=== PATIENT | male | born 1950 | race Caucasian/White ===

== ENCOUNTER 2019-06-19 17:57 | IRF | payer MEDICARE, OTHER, SELFPAY ==
--- NOTE | ~2019-06-19 | XR_ITS ---
EXAMINATION: XR abdomen NG/feed tube insert DATE: 06/28/2019 08:41 INDICATION: Nasogastric tube placement. TECHNIQUE: A supine view of the abdomen was obtained. COMPARISON: Abdomen radiographs 06/28/2019 FINDINGS: There is a dilated loop of small bowel in right abdomen. There is gaseous distention of the stomach. The colon is normal in caliber. The nasogastric tube tip is in the stomach. IMPRESSION: 1. Nasogastric tube tip in the stomach. 2. Dilated small bowel and stomach, consistent with adynamic ileus versus small bowel obstruction. Reviewed, dictated and finalized at location A.
--- NOTE | ~2019-06-19 | XR_ITS ---
EXAMINATION: XR humerus RT DATE: 06/20/2019 03:11 INDICATION: Right upper extremity PICC line placement TECHNIQUE: AP and lateral views of the right humerus were obtained. COMPARISON: None. FINDINGS: Peripherally inserted central venous catheter with access site along the medial side of the distal up per arm. The distal tip of the catheter projects medial to the proximal humeral diaphysis in the kang on of the proximal basilic/distal axillary veins. Bone alignment is normal. No fracture. Polyarticula r osteoarthritis, mild to moderate at the right acromioclavicular joint and mild at the right elbow. IMPRESSION: 1. PICC line tip in the proximal right upper arm likely the region of the proximal basilic/distal axi llary veins. Reviewed, dictated and finalized at location A. IMPRESSION: 1. PICC line tip in the proximal right upper arm likely the region of the proxi mal basilic/distal axillary veins.
--- NOTE | ~2019-06-19 | XR_ITS ---
EXAMINATION: XR chest 2V DATE: 06/28/2019 08:41 INDICATION: Fever. Leukocytosis. Vomiting. TECHNIQUE: Frontal and lateral views of the chest were obtained on 3 radiographs. COMPARISON: Chest single view 06/27/2019 FINDINGS: There is mild atelectasis at left lung base. No pleural effusion or pneumothorax. The heart size is normal. There is a prominent left paracardial fat pad. The nasogastric tube tip is beyond th e inferior margin of the radiograph, but at least to the stomach. IMPRESSION: 1. Mild atelectasis at left lung base. Reviewed, dictated and finalized at location A.
--- NOTE | ~2019-06-19 | XR_ITS ---
EXAMINATION: XR abdomen obstructive series DATE: 06/28/2019 05:53 INDICATION: Abdominal distention. Vomiting. TECHNIQUE: Upright and supine views of the abdomen were obtained. COMPARISON: None. FINDINGS: There is gaseous distention of the stomach. There are multiple dilated loops of small bowel . The colon is normal in caliber. No free intraperitoneal gas. IMPRESSION: 1. Dilated small bowel and stomach, consistent with small bowel obstruction versus adynamic ileus. Reviewed, dictated and finalized at location A. IMPRESSION: 1. Dilated small bowel and stomach, consistent with small bowel obstruction marcia blanche adynamic ileus.
--- NOTE | ~2019-06-19 | XR_ITS ---
EXAMINATION: XR chest PICC line DATE: 06/20/2019 02:23 INDICATION: PICC line placement TECHNIQUE: frontal view of the chest was obtained. COMPARISON: None FINDINGS: The lungs are clear with no focal airspace opacities, pulmonary edema, pleural effusion or pneumothor ax. The cardiomediastinal silhouette is normal. Visualized bones and soft tissues are unremarkable. N o PICC line is visible. IMPRESSION: 1. Normal chest radiograph. No evident PICC line. Reviewed, dictated and finalized at location A.
--- NOTE | ~2019-06-19 | XR_ITS ---
EXAMINATION: XR chest 1V portable DATE: 06/27/2019 10:42 INDICATION: Leukocytosis. TECHNIQUE: A single frontal view of the chest was obtained. COMPARISON: Chest single view 06/20/2019 FINDINGS: There is mild scarring at the lung apices. There is mild atelectasis in left lower lung zon e. No pleural effusion or pneumothorax. The heart size is normal. IMPRESSION: 1. Mild atelectasis in left lower lung zone and mild scarring at the lung apices. Reviewed, dictated and finalized at location A. IMPRESSION: 1. Mild atelectasis in left lower lung zone and mild scarring at the lung apice s.
--- NOTE | ~2019-06-19 | CT_ITS ---
EXAMINATION: CT brain wo con DATE: 06/27/2019 10:26 INDICATION: Fall. Head injury. TECHNIQUE: Computed tomography (CT) of the head was performed without intravenous contrast. The mA wa s adjusted according to patient size. Iterative reconstruction technique was employed. Exam dose: 60 5.33 mGy-cm total exam DLP. COMPARISON: None FINDINGS: There is moderate cerebral volume loss. No intracranial mass lesion or hemorrhage or recent cerebrovascular accident is evident. CT is not sensitive for detection of hyperacute ischemic infarc t. There is nonspecific diminished attenuation of the cerebral white matter, likely due to chronic small vessel ischemic changes. No subdural or epidural hematoma is evident. No orbital mass lesion is detected. No fracture or bone destruction of the cranial vault. Included paranasal sinuses and mastoid air cell s are unremarkable. IMPRESSION: No acute intracranial abnormality or skull fracture Reviewed, dictated and finalized at Location A. Reviewed, dictated and finalized at location A.
[2019-06-19 18:20] VITALS: BP 141/98; PULSE 121; RESP 20; TEMP 36.2; O2SAT 95; BMI 44.8
--- NOTE | 2019-06-19 19:33 | PC.NURSE ---
This patient, Hans Gaytan, was admitted to [facility] Room 220-02. Patient/family oriented to hospital policies and general routines including ID bracelet, bed and alarms, visiting hours, pain management, procedures, bathroom and other care routines, personal items, smoking policy, room service/diet, and visiting hours. Valuables list has been completed. Information on how to activate the Rapid Response Team has been discussed. Patient/Family are encouraged to report perceived risks to care and to ask questions if they do not understand what they are told or what they should do.
[2019-06-19 19:55] VITALS: BP 141/98; PULSE 121; RESP 20; TEMP 36.2; O2SAT 95
[2019-06-19 22:00] VITALS: BP 99/67; PULSE 93; RESP 18; TEMP 36.2; O2SAT 90
[2019-06-20] VITALS (8 sets, daily range): BP systolic 117–123; BP diastolic 74–87; PULSE 70–99; RESP 16–20; TEMP 35.7–36.6; O2SAT 91–97; BMI 44.8; BMI 10.0
[2019-06-20 02:47] LABS: Basophils Percent Auto 0.4 % (0.2-1.2); Eosinophils Absolute Auto 0.1 K/mm3 (0-0.3); Eosinophils Percent Auto 1.4 % (0-4.4); Hemoglobin 13.8 g/dL (14.0-18.0); Immature Granulocyte Absolute 0.07 K/mm3 (0.00-0.031); Immature Granulocyte Percent A 0.7 % (0-0.5); Mean Corpuscular HGB Conc 32.9 g/dl (32-36); Mean Corpuscular Hemoglobin 30.1 pg (26-34); Mean Corpuscular Volume 91.5 fl (80-100); Mean Platelet Volume 9.8 fl (7.4-10.4); Monocytes Absolute Auto 1.1 K/mm3 (0.1-0.6); Monocytes Percent Auto 11.9 % (2.6-8.5); Neutrophils Absolute Auto 6.2 K/mm3 (1.3-6.7); Neutrophils Percent Auto 64.6 % (45.5-73.1); Platelet Count Result 216 k/mm3 (150-375); Red Blood Count 4.59 M/mm3 (4.6-6.20); Red Cell Distribution Width 15.2 % (11.5-14.5); White Blood Count 9.5 K/mm3 (4.5-10.0)
[2019-06-20 03:01] LABS: Blood Urea Nitrogen 59 mg/dL (9-20); Calcium 10.2 mg/dL (8.4-10.2); Carbon Dioxide 32 mmol/L (22-30); Chloride 93 mmol/L (98-107); Estimated CRCL calculation 41 ml/min; Estimated Glomerular Filt Rate 35; Glucose 136 mg/dL (75-110); Potassium 4.6 mmol/L (3.4-5.0); Sodium 133 mmol/L (137-145)
[2019-06-20 03:20] LABS: Add Urine Microscopic? YES; Appearance Urine Clear (Clear); Bilirubin Urine Negative (Negative); Color Urine Yellow (Yellow); Glucose Urine UA Negative (Negative); Ketones Urine Negative (Negative); Mucus Urine Rare /lpf; Nitrate Urine Negative (Negative); Protein Urine Negative (Negative); Squamous Epithelial Cell Urine Rare /hpf (Few); Urobilinogen Urine Negative mg/dL (<2.0); WBC Urine 0-3 /hpf
[2019-06-20 04:06] LABS: Blood Urine Negative (Negative); Leukocyte Esterase Ur 1+ LEU/UL (Negative); Specific Grav Ur 1.015 (1.001-1.035)
[2019-06-20 04:07] LABS: RBC Urine 0-2 /hpf (0-2)
[2019-06-20] MEDS: PANTOPRAZOLE 40 MG TABLET PO ×3 (05:46→20:26)
[2019-06-20] MEDS: METOPROLOL TARTRATE 50 MG TAB PO ×3 (05:46→20:25)
[2019-06-20] MEDS: metroNIDAZOLE 250 MG TABLET 500 MG PO ×4 (05:47→20:26)
--- NOTE | 2019-06-20 08:22 | PC.NURSE ---
Per showroom sales assistant nurse: Patient paperwork from other hospital reflected he was a DNR, but when asked upon admission to [facility] he stated he wants to be a full code with everything done.
[2019-06-20] MEDS: BUMETANIDE 1 MG TABLET 2 MG PO ×2 (09:20→18:09)
[2019-06-20] MEDS: APIXABAN 2.5 MG TABLET PO ×2 (09:20→18:08)
[2019-06-20] MEDS: ACETAMINOPHEN 325 MG TABLET 650 MG PO ×3 (09:20→18:08)
[2019-06-20] MEDS: DIGOXIN TAB 125 MCG TABLET PO (09:21)
[2019-06-20] MEDS: DOCUSATE SODIUM 100 MG CAPSULE PO ×2 (09:21→20:26)
[2019-06-20] MEDS: POTASSIUM CHLORIDE 20 MEQ TABLET.ER PO ×3 (09:22→18:09)
--- NOTE | 2019-06-20 10:00 | WPDREHABHP ---
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 The patient is a 69-year-old male with a past medical history of chronic atrial fibrillation, hypoxemic respiratory failure, osteomyelitis, and chronic kidney disease who presented to [facility] Emergency room after falling at his home. While EMS was with the patient he had a cardiac arrest. He developed hypoxemia and oxygen desaturation to in the 70s and was mechanically ventilated at [facility] for approximately 3 weeks. He went really weaned off of a mechanical ventilation and was discharged to a fdc facility on 4 liter nasal cannula during the day and BiPAP at night p.r.n. he had an episode of respiratory insufficiency with the few hours of admission and was transferred back to [facility]. The discharge him back to the fdc facility and they again sent him to the hospital with respiratory insufficiency. He presented to [facility] on May 30, 2019 with hypoxemia and was admitted. He was tested for COVID-19 and returned negative. Echo showed an ejection fraction of 50%. He was diagnosed with acute respiratory failure with hypoxia. The presume the supplemental oxygen during the day and BiPAP at night and [facility] [place] [facility] May 31, 2019 so that his respiratory could be managed in a hospital setting as he was receiving therapy. His hospitalization other has been significant for urinary retention with placement of a Mccarty catheter, respiratory insufficiency, upper abdominal pain, anasarca, electrolyte imbalance, acute on chronic renal failure, osteomyelitis of the right foot, atrial fibrillation, upper extremity DVT and diabetes mellitus. His upper abdominal pain is being treated with scheduled Tylenol, ultrasound showed gallbladder stone and mild wall thickening without acute cholecystitis. Is anasarca has improved on Lasix drip, he has since been converted to p.o. Bumex. His electrolyte imbalance were corrected. He is on 2 liters nasal cannula during the day and BiPAP at night. Nephrology followed for acute on chronic renal failure and is chronic creatinine is 1.7 which has risen to 1.9 here we with a baseline of creatinine 1.5 his osteomyelitis was already being treated with IV Rocephin and p.o. Flagyl and he will complete antibiotic therapy and June 20, 2019. Atrial fibrillation is controlled on metoprolol digoxin and Eliquis 2.5 milligram in ( due to creatinine ) his diabetes was not requiring any medication for the upper extremity DVT he is being continued on Eliquis 2.5 milligram b.i.d. he is awake and alert oriented x4 he has been debilitated by his lengthy hospitalization and is requiring physical and occupational therapy and significant weakness of related to his prolonged illness multiple respiratory for distress and going on mechanical ventilation. The patient has not traveled outside the [place] or had contact with someone who is ill that has traveled outside the [place] in the past 21 days. Patient has not traveled to an area within the [place] that is experiencing noon transmission of the Coronavirus and has not had close personal contact with anyone that has. The patient does not have a fever. The patient does not have any new liver respiratory illness symptoms. He was tested for COVID-19 and the test was negative. Therapy was initiated at the acute care facility and the patient transferred to [facility] June [facility], 2019 FALLS OR SURGERIES: The patient has had no major surgeries in the 100 days prior to admission. They had falls in the past year. They h
[2019-06-20] MEDS: SIMETHICONE 125 MG CHEW TAB PO ×3 (10:40→18:09)
[2019-06-20] MEDS: SALMETEROL XINAFOATE 50 MCG DISKUS 1 PUFF INHALATION (19:55)
[2019-06-20] MEDS: TOLNAFTATE 1% POWDER 45 GM BTL 1 APPLIC TOPICAL (20:27)
[2019-06-20] MEDS: MICONAZOLE NITRATE 2% CREAM 30 GM TUBE 1 APPLIC TOPICAL (20:27)
[2019-06-21] MEDS: metroNIDAZOLE 250 MG TABLET 500 MG PO ×3 (05:51→21:24)
[2019-06-21 06:00] VITALS: BP 115/79; PULSE 72; RESP 20; TEMP 35.6; O2SAT 95
[2019-06-21 08:00] VITALS: PULSE 72; RESP 20; O2SAT 95
[2019-06-21] MEDS: BUMETANIDE 1 MG TABLET 2 MG PO ×2 (08:17→17:15)
[2019-06-21] MEDS: POTASSIUM CHLORIDE 20 MEQ TABLET.ER PO ×3 (08:17→17:15)
[2019-06-21] MEDS: PANTOPRAZOLE 40 MG TABLET PO ×2 (08:18→21:23)
[2019-06-21] MEDS: SIMETHICONE 125 MG CHEW TAB PO ×3 (08:18→17:14)
[2019-06-21] MEDS: APIXABAN 2.5 MG TABLET PO ×2 (08:19→17:15)
[2019-06-21] MEDS: DIGOXIN TAB 125 MCG TABLET PO (08:19)
[2019-06-21] MEDS: METOPROLOL TARTRATE 50 MG TAB PO ×2 (08:19→21:23)
[2019-06-21] MEDS: DOCUSATE SODIUM 100 MG CAPSULE PO ×2 (08:19→21:23)
[2019-06-21] MEDS: ACETAMINOPHEN 325 MG TABLET 650 MG PO ×3 (08:20→17:15)
[2019-06-21] MEDS: MICONAZOLE NITRATE 2% CREAM 30 GM TUBE 1 APPLIC TOPICAL ×2 (08:20→21:28)
[2019-06-21] MEDS: TOLNAFTATE 1% POWDER 45 GM BTL 1 APPLIC TOPICAL ×2 (08:21→21:24)
[2019-06-21] MEDS: SALMETEROL XINAFOATE 50 MCG DISKUS 1 PUFF INHALATION ×2 (08:34→19:49)
--- NOTE | 2019-06-21 10:50 | RPD ---
INDIVIDUALIZED PLAN OF CARE FOR Hans Gaytan Brief Synthesis of Pre-Admission Screen, Post-Admission Evaluation and Therapy Evaluations: The patient presents to rehab with Critical illness myopathy. Comorbidities include cardiac arrest with NSTEMI, acute respiratory failure with hypoxia, congestive heart failure, generalized anasarca, osteomyelitis right foot, chronic kidney disease with acute renal failure, atrial fibrillation, morbid obesity, diabetes mellitus type 2, hypokalemia, low magnesium, upper abdominal pain. urinary retention, gastroesophageal reflux disease, upper extremity DVT. The patient requires physician services for medical oversight, management of complications in setting of present comorbidities, and pain management. The patient requires nursing services for anticoagulation therapy, diabetes training, DVT prophylactics, IV administration, infection protection, medication management and education, pressure relief, and wound care. Deficits include:ADLs, Balance, Endurance, Family Training/Education, Mobility, Pain Management, ROM, Safety, Strength, Transfers Infection Prevention Coordinator/Case Management for: Discharge Planning and Patient/Family Counseling Physical Therapy: 5 days per week for 90 minutes. Treatments may include: Therapeutic Exercise, Gait Training, Neuromuscular Re-education, Transfer Training, Community Reintegration, Bed Mobility, Patient/Family Education, Wheelchair Mobility Group Therapy/Concurrent Therapy Rationales: -Improve attention span during functional activities in a distracted environment. -Enhance problem solving and/or adequate judgment skills during functional activities in a distracted environment. -Promote increased safety awareness in a distracted environment to reduce fall risk with functional tasks, transfers, and ambulation to allow a more safe, self-sufficient return to the home environment. -Improve dynamic balance skills to promote safety and independence with functional activities in a distracted environment for maximum gain. Occupational Therapy: 5 days per week for 90 minutes. Treatments may include: Therapeutic Exercise, Therapeutic Activity, Cognitive Training, Self-Care Transfer Training, Community Reintegration, Home Management, Patient/Family Education, Wheelchair Mobility Training, Energy Conservation Training Group Therapy/Concurrent Therapy Rationales: -Allow therapist to observe and teach generalization and carry-over of skills learned in individual therapy. -Enhance problem solving and sequencing skills during therapeutic activities in a distracted environment. -Promote increased safety awareness in a realistic setting to reduce fall risk with functional tasks due to visual and verbal distractions. -Increase functional level with ADLs, ADL transfers and use of adaptive equipment through therapeutic activities with others while promoting safety to allow a more safe, self-sufficient return home. Medical Prognosis: Good Anticipated Length of Stay: 12 days Rehab Goals: Eating Goal: 06-Independent Oral Hygiene Goal: 06-Independent Toileting Hygiene Goal: 03-Partial/Moderate Assistance Shower/Bathe Self Goal: 03-Partial/Moderate Assistance Upper Body Dressing Goal: 05-Setup or Clean Up Assistance Lower Body Dressing Goal: 03-Partial/Moderate Assistance Putting On/Taking Off Footwear Goal: 04-Supervision or Touching Assistance Rolling Left and Right Goal: 04-Supervision or Touching Assistance Sit to Lying Goal: 03-Partial/Moderate Assistance Lying to Sitting on Side of Bed Goal: 03-Partial/Moderate Assistance Sit to Stand Goal: 06-Independent Chair/[id number]-yz-[id number] Transfer Goal: 06-Independent Toilet Transfer Goal: 06-Independent Car Transfer Goal: 03-Partial/Moderate Assistance Walk 10' Goal: 04-Supervision or Touching Assistance Walk 50' with Two Turns Goal: 04-Supervision or Touching Assistance Walk 150' Goal: 02-Substantial/Maximal Assistance Walk 10' on Uneven Surface Goal: 04-Supervision or
[2019-06-21 14:00] VITALS: BP 151/62; PULSE 83; RESP 20; TEMP 36.3; O2SAT 96
--- NOTE | 2019-06-21 14:24 | WPDNEURORHBP ---
Subjective Date/time seen: 06/21/19 14:24 Interval history: this 69-year-old is here with rather prolonged history of hospitalizations related to multiple factors detailed in my initial history and physical examination his rehab candidate 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 he denies any new complaints apart from being generally weak both lower extremities and the upper extremities the Review of Systems Review of Systems: All systems reviewed & are unremarkable except as noted in HPI and below Functional Status Transfers Ability Ability to Transfer In/Out of Chair: Total Assistance X 2 Exam Const: General: comfortable and no acute distress HENMT: General nose exam: Normal nares present Mouth: Yes moist mucous membranes Eyes: General: appearance normal, both eyes and all related structures Neck: Neck: supple and no JVD Resp: Effort & Inspection: normal respiratory effort Auscultation: clear to auscultation bilaterally Cardio: Rate: regular rate Rhythm: regular rhythm GI: GI Palp: Yes Soft to palpation Auscultation: normal bowel sounds Urinary Catheter: Urinary Catheter: patent and draining Skin: General skin exam: normal color and no rashes or lesions noted Neuro: Other: patient is awake and alert well oriented time place and person has normal speech and language function the pertinent neurologic findings is the with the significant weakness of the lower extremities more so than the upper extremities proximal more than distal so with depressed to absent reflexes sensory deficit along with the positive Romberg and needing significant assistance in the activi Extrem: General: normal to inspection Psych: Mental Status: mental status grossly normal Objective Data Vital Signs Vital Signs: Vital Signs - 24 hr 06/20/19 20:25 06/20/19 22:00 06/21/19 06:00 Temperature 35.7 C L 35.6 C L Pulse Rate 70 77 72 Respiratory Rate 20 20 Blood Pressure 123/74 115/79 Pulse Oximetry 95 95 06/21/19 08:00 Temperature Pulse Rate 72 Respiratory Rate 20 Blood Pressure Pulse Oximetry 95 Intake/Output Intake/Output: Intake & Output 06/18/19 06/19/19 06/20/19 06/21/19 23:59 23:59 23:59 23:59 Intake Total 480 240 Balance 480 240 Meds/Results Medications: Active Medications Generic Name Dose Route Start Last Admin Trade Name Freq PRN Reason Stop Dose Admin Acetaminophen 650 mg 06/20/19 09:00 06/21/19 13:29 Tylenol Tablet PO 650 mg TID LAURA Administration Albuterol 2.5 mg 06/19/19 20:54 Albuterol Sulf Neb 2.5mg/0.5ml NEBULIZE Q6H PRN Shortness Of Breath Or Wheezing Apixaban 2.5 mg 06/20/19 09:00 06/21/19 08:19 Eliquis PO 2.5 mg BID [facility] Administration Bumetanide 2 mg 06/20/19 09:00 06/21/19 08:17 Bumex Po PO 2 mg BID [facility] Administration Digoxin 125 mcg 06/20/19 09:00 06/21/19 08:19 Lanoxin Tab PO 125 mcg DAILY [facility] Administration Docusate Sodium 100 mg 06/20/19 09:00 06/21/19 08:19 Colace Capsule PO 100 mg Q12HR [facility] Administration Metoprolol Tartrate 50 mg 06/19/19 21:00 06/21/19 08:19 Lopressor PO 50 mg Q12HR [facility] Administration Metronidazole 500 mg 06/19/19 22:00 06/21/19 13:28 Flagyl PO 500 mg Q8HR [facility] Administration Miconazole Nitrate 1 applic 06/20/19 21:00 06/21/19 08:20 Miconazole Nitrate 2% Cream TOPICAL 1 applic Q12HR [facility] Administration Non-Formulary Medication 1 cap 06/20/19 09:00 Indacaterol-Glycopyrrolate [Utibron Neohaler] INHALATION 07/20/19 09:01 BID [facility] Ondansetron HCl 4 mg 06/19/19 20:54 Zofran Odt PO Q6H PRN Nausea And Vomiting Pantoprazole Sodium 40 mg 06/19/19 21:00 06/21/19 08:18 Protonix PO 40 mg Q12HR [facility] Administration Potassium Chloride 20 meq 06/20/19 09:00 06/21/19 13:29 Kcl Tablet PO 20 meq TID [facility] Administration Salmeterol Xinafoate 1 puff 06/20/19 12:00 06/21/19 0
[2019-06-21 21:23] VITALS: PULSE 80
[2019-06-21 22:00] VITALS: BP 105/67; PULSE 88; RESP 20; TEMP 36.4; O2SAT 96
[2019-06-22] MEDS: metroNIDAZOLE 250 MG TABLET 500 MG PO ×3 (05:44→21:05)
[2019-06-22 06:00] VITALS: BP 120/69; PULSE 90; RESP 20; TEMP 36.3; O2SAT 95
[2019-06-22] MEDS: SALMETEROL XINAFOATE 50 MCG DISKUS 1 PUFF INHALATION ×2 (08:07→21:11)
[2019-06-22] MEDS: ACETAMINOPHEN 325 MG TABLET 650 MG PO ×3 (09:18→18:53)
[2019-06-22 09:19] VITALS: PULSE 90
[2019-06-22] MEDS: MICONAZOLE NITRATE 2% CREAM 30 GM TUBE 1 APPLIC TOPICAL ×2 (09:19→21:08)
[2019-06-22] MEDS: DOCUSATE SODIUM 100 MG CAPSULE PO ×2 (09:19→21:05)
[2019-06-22] MEDS: APIXABAN 2.5 MG TABLET PO ×2 (09:19→18:54)
[2019-06-22] MEDS: DIGOXIN TAB 125 MCG TABLET PO (09:19)
[2019-06-22] MEDS: SIMETHICONE 125 MG CHEW TAB PO ×3 (09:19→18:54)
[2019-06-22] MEDS: BUMETANIDE 1 MG TABLET 2 MG PO ×2 (09:19→18:54)
[2019-06-22 09:20] VITALS: PULSE 90
[2019-06-22] MEDS: PANTOPRAZOLE 40 MG TABLET PO ×2 (09:20→21:05)
[2019-06-22] MEDS: METOPROLOL TARTRATE 50 MG TAB PO ×2 (09:20→21:05)
[2019-06-22] MEDS: POTASSIUM CHLORIDE 20 MEQ TABLET.ER PO ×3 (09:20→18:54)
[2019-06-22] MEDS: TOLNAFTATE 1% POWDER 45 GM BTL 1 APPLIC TOPICAL ×2 (09:20→21:07)
--- NOTE | 2019-06-22 11:41 | WPDNEURORHBP ---
Subjective Date/time seen: 06/22/19 11:41 critical illness related neuropathy and myopathy Review of Systems Review of Systems: All systems reviewed & are unremarkable except as noted in HPI and below Functional Status Transfers Ability Ability to Transfer In/Out of Chair: Total Assistance X 2 Exam Const: General: comfortable and no acute distress HENMT: Head: normal to inspection Ears: hearing grossly normal bilaterally General nose exam: Normal external nose present and No nasal discharge present Face and sinus: normal facial exam Mouth: Yes Normal oral and palatal mucosa present Eyes: General: appearance normal, both eyes and all related structures Neck: Neck: full ROM Resp: Effort & Inspection: normal respiratory effort Auscultation: clear to auscultation bilaterally Cardio: Rate: regular rate Rhythm: regular rhythm GI: Auscultation: normal bowel sounds Neuro: General: patient oriented x3 and moves all extremities Cranial nerves: Yes CN's II-XII intact bilaterally, Yes Equal, round and reactive pupils present, Yes Bilaterally intact EOM present, Yes Normal facial strength present, Yes Symmetric palate elevation present and Yes Ability to bilaterally rotate head present Cognition (Neuro): normal cognition Speech: normal speech Motor exam (neuro): Abnormal motor strength present (decreased) Sensory Exam: Sensory deficit (Neuro) (distally) Deep tendon reflexes (DTR's): Right triceps reflex intensity grade: 0, Left triceps reflex intensity grade: 0, Rt Biceps (C5, C6): 0, Left biceps reflex intensity grade: 0, Right brachioradialis reflex intensity grade: 0, Left brachioradialis reflex intensity grade: 0, Right patellar reflex intensity grade: 0, Left patellar reflex intensity grade: 0, Right ankle reflex intensity grade: 0 and Left ankle reflex intensity grade: 0 Plantar Reflex Responses: downgoing: bilateral Psych: Appearance: grossly normal Objective Data Vital Signs Vital Signs: Vital Signs - 24 hr 06/21/19 14:00 06/21/19 21:23 06/21/19 22:00 Temperature 36.3 C L 36.4 C Pulse Rate 83 80 88 Respiratory Rate 20 20 Blood Pressure 151/62 H 105/67 Pulse Oximetry 96 96 06/22/19 06:00 06/22/19 09:19 06/22/19 09:20 Temperature 36.3 C L Pulse Rate 90 90 90 Respiratory Rate 20 Blood Pressure 120/69 Pulse Oximetry 95 Intake/Output Intake/Output: Intake & Output 06/19/19 06/20/19 06/21/19 06/22/19 23:59 23:59 23:59 23:59 Intake Total 480 840 810 Output Total 700 Balance 480 840 110 Meds/Results Medications: Active Medications Generic Name Dose Route Start Last Admin Trade Name Freq PRN Reason Stop Dose Admin Acetaminophen 650 mg 06/20/19 09:00 06/22/19 09:18 Tylenol Tablet PO 650 mg TID LAURA Administration Albuterol 2.5 mg 06/19/19 20:54 Albuterol Sulf Neb 2.5mg/0.5ml NEBULIZE Q6H PRN Shortness Of Breath Or Wheezing Apixaban 2.5 mg 06/20/19 09:00 06/22/19 09:19 Eliquis PO 2.5 mg BID [facility] Administration Bumetanide 2 mg 06/20/19 09:00 06/22/19 09:19 Bumex Po PO 2 mg BID [facility] Administration Digoxin 125 mcg 06/20/19 09:00 06/22/19 09:19 Lanoxin Tab PO 125 mcg DAILY [facility] Administration Docusate Sodium 100 mg 06/20/19 09:00 06/22/19 09:19 Colace Capsule PO 100 mg Q12HR [facility] Administration Metoprolol Tartrate 50 mg 06/19/19 21:00 06/22/19 09:20 Lopressor PO 50 mg Q12HR [facility] Administration Metronidazole 500 mg 06/19/19 22:00 06/22/19 05:44 Flagyl PO 500 mg Q8HR [facility] Administration Miconazole Nitrate 1 applic 06/20/19 21:00 06/22/19 09:19 Miconazole Nitrate 2% Cream TOPICAL 1 applic Q12HR [facility] Administration Non-Formulary Medication 1 cap 06/20/19 09:00 Indacaterol-Glycopyrrolate [Utibron Neohaler] INHALATION 07/20/19 09:01 BID [facility] Ondansetron HCl 4 mg 06/19/19 20:54 Zofran Odt PO Q6H PRN Nausea And Vomiting Pantoprazole Sodium 40 mg 05
[2019-06-22 14:00] VITALS: BP 108/66; PULSE 77; RESP 18; TEMP 36.1; O2SAT 95
[2019-06-22 21:05] VITALS: PULSE 80
[2019-06-22 22:00] VITALS: BP 101/67; PULSE 94; RESP 20; TEMP 36; O2SAT 94
[2019-06-23 06:00] VITALS: BP 123/60; PULSE 97; RESP 20; TEMP 36.5; O2SAT 93
[2019-06-23] MEDS: metroNIDAZOLE 250 MG TABLET 500 MG PO ×3 (06:15→20:30)
[2019-06-23] MEDS: ACETAMINOPHEN 325 MG TABLET 650 MG PO ×3 (08:31→17:39)
[2019-06-23 08:32] VITALS: PULSE 97
[2019-06-23] MEDS: BUMETANIDE 1 MG TABLET 2 MG PO ×2 (08:32→17:39)
[2019-06-23] MEDS: DIGOXIN TAB 125 MCG TABLET PO (08:32)
[2019-06-23] MEDS: APIXABAN 2.5 MG TABLET PO ×2 (08:32→17:39)
[2019-06-23] MEDS: METOPROLOL TARTRATE 50 MG TAB PO ×2 (08:32→20:28)
[2019-06-23] MEDS: DOCUSATE SODIUM 100 MG CAPSULE PO ×2 (08:32→20:29)
[2019-06-23] MEDS: MICONAZOLE NITRATE 2% CREAM 30 GM TUBE 1 APPLIC TOPICAL ×2 (08:33→20:32)
[2019-06-23] MEDS: TOLNAFTATE 1% POWDER 45 GM BTL 1 APPLIC TOPICAL ×2 (08:33→20:31)
[2019-06-23] MEDS: POTASSIUM CHLORIDE 20 MEQ TABLET.ER PO ×3 (08:33→17:40)
[2019-06-23] MEDS: PANTOPRAZOLE 40 MG TABLET PO ×2 (08:33→20:29)
[2019-06-23] MEDS: SIMETHICONE 125 MG CHEW TAB PO ×3 (08:33→17:40)
[2019-06-23] MEDS: SALMETEROL XINAFOATE 50 MCG DISKUS 1 PUFF INHALATION ×2 (09:15→20:55)
[2019-06-23 14:00] VITALS: BP 108/65; PULSE 72; RESP 18; TEMP 36.5; O2SAT 95
[2019-06-23 20:28] VITALS: PULSE 72
[2019-06-23 20:57] VITALS: PULSE 96; RESP 18
[2019-06-23 22:00] VITALS: BP 131/74; PULSE 88; RESP 18; TEMP 36.2; O2SAT 96
[2019-06-24] VITALS (7 sets, daily range): BP systolic 112–127; BP diastolic 64–76; PULSE 64–87; RESP 18–20; TEMP 35.8–36.5; O2SAT 94–96
[2019-06-24] MEDS: metroNIDAZOLE 250 MG TABLET 500 MG PO ×3 (06:00→20:03)
[2019-06-24] MEDS: SALMETEROL XINAFOATE 50 MCG DISKUS 1 PUFF INHALATION ×2 (08:23→20:16)
[2019-06-24] MEDS: ACETAMINOPHEN 325 MG TABLET 650 MG PO ×3 (08:45→16:50)
[2019-06-24] MEDS: PANTOPRAZOLE 40 MG TABLET PO ×2 (08:45→20:03)
[2019-06-24] MEDS: POTASSIUM CHLORIDE 20 MEQ TABLET.ER PO ×3 (08:53→16:51)
[2019-06-24] MEDS: SIMETHICONE 125 MG CHEW TAB PO ×3 (08:53→16:51)
[2019-06-24] MEDS: BUMETANIDE 1 MG TABLET 2 MG PO ×2 (08:53→16:51)
[2019-06-24] MEDS: METOPROLOL TARTRATE 50 MG TAB PO ×2 (08:54→20:02)
[2019-06-24] MEDS: DIGOXIN TAB 125 MCG TABLET PO (08:55)
[2019-06-24] MEDS: TOLNAFTATE 1% POWDER 45 GM BTL 1 APPLIC TOPICAL ×2 (08:56→20:04)
[2019-06-24] MEDS: DOCUSATE SODIUM 100 MG CAPSULE PO (09:01)
[2019-06-24] MEDS: MICONAZOLE NITRATE 2% CREAM 30 GM TUBE 1 APPLIC TOPICAL ×2 (10:44→20:05)
[2019-06-24] MEDS: APIXABAN 2.5 MG TABLET PO ×2 (10:44→16:50)
--- NOTE | 2019-06-24 13:27 | PCDIET ---
Nutrition Follow-Up Complete: Nutrition Diagnosis: Suboptimal oral intake related to decreased appetite as evidenced by patient statements, intake of 50%. Nutrition Goal: Patient to consume 50% of meals/supplements or more Goal met. Patient consumed an average of 87% of meals since 06/21/19 along with Ensure Enlive BID. Diet remains soft and bite size, 2g sodium which is appropriate, as long as glucose levels remain controlled. Recommend reducing Enlive to 1x daily to avoid weight gain, given improved intake. Last recorded weight is 126 kg. Recommend obtaining new weight. Bowel Motility: +Loose stool documented this date. Labs Reviewed: No new labs available. Meds Noted: Albuterol, Bumex, Colace, Flagyl, KCl, Protonix Additional Notes: Scrotum macerated. Recommend stopping Colace if loose stools continue. Will continue to monitor with same goal. Nutrition Monitoring and Evaluation: Follow up in 7 days.
--- NOTE | 2019-06-24 13:35 | PCPTNOTE ---
Opal Lehman, PT completed an inpatient rehab wheelchair evaluation on Hans Gaytan on 06/24/2019. The patient is unable to safely and independently ambulate household distances due to their current impairments. Their diagnosis is Critical Illness Myopathy and their impairments include decreased strength, decreased endurance, decreased range of motion, decreased balance, lower extremity weakness, and ataxia. Hans's weight bearing status is weight-bearing as tolerated on the bilateral lower legs. The patient demonstrates significant functional mobility limitations that impair their ability to participate in mobility-related activities of daily living (MRADLs), including toileting, feeding, dressing, grooming, and bathing in the customary locations in the home. These limitations cannot be sufficiently resolved by the use of an appropriately fitted cane or walker. It is recommended that the patient utilize a wheelchair for functional mobility within the home in order to facilitate optimal safety, independence and participation in all MRADL's and adequately access their home environment on a regular basis. The patient's home provides adequate access between rooms, maneuvering space, and surfaces to accommodate the recommended wheelchair. The use of a wheelchair for functional mobility is strongly recommended and the patient is receptive to using the wheelchair. The use of this wheelchair will significantly improve the patient's ability to participate in MRADLS and the patient will use it on a regular basis in the home. This will facilitate optimal safety, independence, and participation. The patient has demonstrated sufficient physical and mental capabilities needed to safely propel a manual wheelchair that is provided in the home during a typical day. Recommended Wheelchair Frame: heavy duty (patient's weight is 278lbs) Recommended Wheelchair Size: 26 wide x 18 deep x 16 height Recommended Wheelchair Cushion: standard Wheelchair Leg Recommendations: bilateral elevating -(CHOOSE ONE AND DELETE WHAT'S NOT APPLICABLE OR DELETE BOTH) A heavy duty wheelchair is recommended because the patient weighs more than 250 pounds. -(CHOOSE ONE AND DELETE THE OTHER TWO OPTIONS, OR DELETE) Elevating legrests are recommended because the patient has significant edema of the lower extremities that requires an elevating legrest. -(KEEP OR DELETE) Anti-tippers are recommended due to patient demonstrating increased risk for falls. They would benefit from anti-tippers with added safety and stabilization. _Opal Lehman PT __5/11/20 Evaluating Therapist Date I agree with and certify that the above recommendation is medically necessary. Referring Physician Date I agree with and certify that the above recommendation is medically necessary. Referring Physician Date
--- NOTE | 2019-06-24 17:14 | WPDNEURORHBP ---
Subjective Date/time seen: critical illness related neyropathy and myopathy involved in care no [id number]/11/20 17:14 Functional Status Transfers Ability Ability to Transfer In/Out of Chair: Total Assistance X 2 Exam Const: General: cooperative, comfortable and no acute distress HENMT: Head: normal to inspection General nose exam: No nasal discharge present Mouth: Yes Normal oral and palatal mucosa present Eyes: General: appearance normal, both eyes and all related structures Neck: Neck: full ROM Resp: Effort & Inspection: normal respiratory effort Auscultation: clear to auscultation bilaterally Cardio: Rate: regular rate Rhythm: regular rhythm GI: Auscultation: normal bowel sounds Neuro: General: patient oriented x3 Cranial nerves: Yes CN's II-XII intact bilaterally Cognition (Neuro): normal cognition Speech: normal speech Objective Data Vital Signs Vital Signs: Vital Signs - 24 hr 06/23/19 20:28 06/23/19 20:57 06/23/19 22:00 Temperature 36.2 C L Pulse Rate 72 96 88 Respiratory Rate 18 18 Blood Pressure 131/74 Pulse Oximetry 96 06/24/19 06:00 06/24/19 08:54 06/24/19 08:55 Temperature 36.2 C L Pulse Rate 64 80 80 Respiratory Rate 20 Blood Pressure 127/76 Pulse Oximetry 94 06/24/19 14:00 Temperature 35.8 C L Pulse Rate 87 Respiratory Rate 20 Blood Pressure 124/74 Pulse Oximetry 95 Intake/Output Intake/Output: Intake & Output 06/21/19 06/22/19 06/23/19 06/24/19 23:59 23:59 23:59 23:59 Intake Total 840 1290 1410 960 Output Total 1700 2050 700 Balance 840 410 -481 260 Meds/Results Medications: Active Medications Generic Name Dose Route Start Last Admin Trade Name Freq PRN Reason Stop Dose Admin Acetaminophen 650 mg 06/20/19 09:00 06/24/19 16:50 Tylenol Tablet PO 650 mg TID [facility] Administration Albuterol 2.5 mg 06/19/19 20:54 Albuterol Sulf Neb 2.5mg/0.5ml NEBULIZE Q6H PRN Shortness Of Breath Or Wheezing Apixaban 2.5 mg 06/20/19 09:00 06/24/19 16:50 Eliquis PO 2.5 mg BID [facility] Administration Bumetanide 2 mg 06/20/19 09:00 06/24/19 16:51 Bumex Po PO 2 mg BID [facility] Administration Digoxin 125 mcg 06/20/19 09:00 06/24/19 08:55 Lanoxin Tab PO 125 mcg DAILY [facility] Administration Docusate Sodium 100 mg 06/20/19 09:00 06/24/19 09:01 Colace Capsule PO 100 mg Q12HR [facility] Administration Metoprolol Tartrate 50 mg 06/19/19 21:00 06/24/19 08:54 Lopressor PO 50 mg Q12HR [facility] Administration Metronidazole 500 mg 06/19/19 22:00 06/24/19 13:54 Flagyl PO 500 mg Q8HR [facility] Administration Miconazole Nitrate 1 applic 06/20/19 21:00 06/24/19 10:44 Miconazole Nitrate 2% Cream TOPICAL 1 applic Q12HR [facility] Administration Non-Formulary Medication 1 cap 06/20/19 09:00 Indacaterol-Glycopyrrolate [Utibron Neohaler] INHALATION 07/20/19 09:01 BID [facility] Ondansetron HCl 4 mg 06/19/19 20:54 Zofran Odt PO Q6H PRN Nausea And Vomiting Pantoprazole Sodium 40 mg 06/19/19 21:00 06/24/19 08:45 Protonix PO 40 mg Q12HR [facility] Administration Potassium Chloride 20 meq 06/20/19 09:00 06/24/19 16:51 Kcl Tablet PO 20 meq TID [facility] Administration Salmeterol Xinafoate 1 puff 06/20/19 12:00 06/24/19 08:23 Serevent Diskus INHALATION 1 puff Q12HRT [facility] Administration Simethicone 125 mg 06/20/19 09:00 06/24/19 16:51 Phazyme PO 125 mg TID [facility] Administration Tiotropium [place] 1 cap 06/20/19 09:00 06/24/19 08:24 Spiriva INHALATION 1 cap QAM [facility] Administration Tolnaftate 1 applic 06/20/19 21:00 06/24/19 08:56 Tolnaftate 1% Powder TOPICAL 1 applic Q12HR [facility] Administration Radiology Results: ITS Impressions Chest X-Ray 06/20/19 08:11 IMPRESSION: 1. Normal chest radiograph. No evident PICC line. Humerus X-Ray 06/20/19 08:12 IMPRESSION: 1. PICC line tip in the proximal right upper arm likely the region of
[2019-06-24] MEDS: LOPERAMIDE HCL 2 MG CAPSULE PO (18:21)
[2019-06-25] VITALS (7 sets, daily range): BP systolic 95–135; BP diastolic 63–78; PULSE 72–88; RESP 19–20; TEMP 36.1–36.5; O2SAT 93–98
[2019-06-25] MEDS: metroNIDAZOLE 250 MG TABLET 500 MG PO ×3 (06:02→20:39)
[2019-06-25] MEDS: APIXABAN 2.5 MG TABLET PO ×2 (09:06→17:43)
[2019-06-25] MEDS: ACETAMINOPHEN 325 MG TABLET 650 MG PO ×3 (09:06→17:43)
[2019-06-25] MEDS: BUMETANIDE 1 MG TABLET 2 MG PO ×2 (09:07→17:43)
[2019-06-25] MEDS: DOCUSATE SODIUM 100 MG CAPSULE PO ×2 (09:07→20:35)
[2019-06-25] MEDS: PANTOPRAZOLE 40 MG TABLET PO ×2 (09:07→20:35)
[2019-06-25] MEDS: METOPROLOL TARTRATE 50 MG TAB PO ×2 (09:08→20:35)
[2019-06-25] MEDS: DIGOXIN TAB 125 MCG TABLET PO (09:09)
[2019-06-25] MEDS: SIMETHICONE 125 MG CHEW TAB PO ×3 (09:10→17:43)
[2019-06-25] MEDS: POTASSIUM CHLORIDE 20 MEQ TABLET.ER PO ×3 (09:10→17:43)
[2019-06-25] MEDS: TOLNAFTATE 1% POWDER 45 GM BTL 1 APPLIC TOPICAL ×2 (09:11→20:37)
[2019-06-25] MEDS: MICONAZOLE NITRATE 2% CREAM 30 GM TUBE 1 APPLIC TOPICAL ×2 (09:13→20:39)
[2019-06-25] MEDS: SALMETEROL XINAFOATE 50 MCG DISKUS 1 PUFF INHALATION ×2 (09:17→19:47)
--- NOTE | 2019-06-25 15:53 | WPDNEURORHBP ---
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 is doing better engage in therapy but the weakness still there he still needs assistance in the activities of daily living denies any headache nausea vomiting chest pain shortness of breath fever chills or sore throat Review of Systems Review of Systems: All systems reviewed & are unremarkable except as noted in HPI and below Functional Status Ambulation Ability Ability to Ambulate 10 Feet: Minimum Assistance X 1 Ambulation Assistive Devices: Walker, Standard Transfers Ability Ability to Transfer In/Out of Chair: Minimum Assistance X 1 Exam Const: General: comfortable and no acute distress HENMT: General nose exam: Normal nares present Mouth: Yes moist mucous membranes Eyes: General: appearance normal, both eyes and all related structures Neck: Neck: supple and no JVD Resp: Effort & Inspection: normal respiratory effort Auscultation: clear to auscultation bilaterally Cardio: Rate: regular rate Rhythm: regular rhythm GI: GI Palp: Yes Soft to palpation Auscultation: normal bowel sounds Skin: General skin exam: normal color and no rashes or lesions noted Neuro: Other: remains awake alert will oriented to time place person with generalized weakness of both upper lower extremities lower extremities more so than the upper extremities proximal more than distal with the depressed reflexes and sensory deficit and slowly getting better Extrem: General: normal to inspection Psych: Mental Status: mental status grossly normal Objective Data Vital Signs Vital Signs: Vital Signs - 24 hr 06/24/19 20:02 06/24/19 20:17 06/24/19 22:00 Temperature 36.5 C Pulse Rate 78 78 85 Respiratory Rate 18 20 Blood Pressure 112/64 Pulse Oximetry 96 06/25/19 06:00 06/25/19 09:08 06/25/19 09:09 Temperature 36.5 C Pulse Rate 83 72 72 Respiratory Rate 20 Blood Pressure 113/74 Pulse Oximetry 98 06/25/19 14:00 Temperature 36.1 C L Pulse Rate 83 Respiratory Rate 19 Blood Pressure 135/78 Pulse Oximetry 93 Intake/Output Intake/Output: Intake & Output 06/22/19 06/23/19 06/24/19 06/25/19 23:59 23:59 23:59 23:59 Intake Total 1290 1410 1200 720 Output Total 1700 2050 [address] [facility] 410 -640 -400 -1080 Meds/Results Medications: Active Medications Generic Name Dose Route Start Last Admin Trade Name Freq PRN Reason Stop Dose Admin Acetaminophen 650 mg 06/20/19 09:00 06/25/19 12:43 Tylenol Tablet PO 650 mg TID [facility] Administration Albuterol 2.5 mg 06/19/19 20:54 Albuterol Sulf Neb 2.5mg/0.5ml NEBULIZE Q6H PRN Shortness Of Breath Or Wheezing Apixaban 2.5 mg 06/20/19 09:00 06/25/19 09:06 Eliquis PO 2.5 mg BID [facility] Administration Bumetanide 2 mg 06/20/19 09:00 06/25/19 09:07 Bumex Po PO 2 mg BID [facility] Administration Digoxin 125 mcg 06/20/19 09:00 06/25/19 09:09 Lanoxin Tab PO 125 mcg DAILY [facility] Administration Docusate Sodium 100 mg 06/20/19 09:00 06/25/19 09:07 Colace Capsule PO 100 mg Q12HR [facility] Administration Loperamide HCl 2 mg 06/24/19 17:46 06/24/19 18:21 Loperamide Hcl PO 2 mg PRN PRN Administration Diarrhea Metoprolol Tartrate 50 mg 06/19/19 21:00 06/25/19 09:08 Lopressor PO 50 mg Q12HR [facility] Administration Metronidazole 500 mg 06/19/19 22:00 06/25/19 15:40 Flagyl PO 500 mg Q8HR [facility] Administration Miconazole Nitrate 1 applic 06/20/19 21:00 06/25/19 09:13 Miconazole Nitrate 2% Cream TOPICAL 1 applic Q12HR [facility] Administration Non-Formulary Medication 1 cap 06/20/19 09:00 Indacaterol-Glycopyrrolate [Utibron Neohaler] INHALATION 07/20/19 09:01 BID [facility] Ondansetron HCl 4 mg 06/19/19 20:54 Zofran Odt PO Q6H PRN Chip
[2019-06-26] MEDS: metroNIDAZOLE 250 MG TABLET 500 MG PO (05:42)
[2019-06-26 06:00] VITALS: BP 124/72; PULSE 87; RESP 19; TEMP 37; O2SAT 97
[2019-06-26] MEDS: SALMETEROL XINAFOATE 50 MCG DISKUS 1 PUFF INHALATION ×2 (08:03→20:00)
[2019-06-26] MEDS: ACETAMINOPHEN 325 MG TABLET 650 MG PO ×3 (09:20→17:44)
[2019-06-26] MEDS: APIXABAN 2.5 MG TABLET PO ×2 (09:20→17:44)
[2019-06-26 09:21] VITALS: PULSE 87
[2019-06-26] MEDS: DOCUSATE SODIUM 100 MG CAPSULE PO ×2 (09:21→20:29)
[2019-06-26] MEDS: BUMETANIDE 1 MG TABLET 2 MG PO ×2 (09:21→17:45)
[2019-06-26] MEDS: METOPROLOL TARTRATE 50 MG TAB PO ×2 (09:21→20:28)
[2019-06-26] MEDS: DIGOXIN TAB 125 MCG TABLET PO (09:21)
[2019-06-26] MEDS: SIMETHICONE 125 MG CHEW TAB PO ×3 (09:22→17:45)
[2019-06-26] MEDS: PANTOPRAZOLE 40 MG TABLET PO ×2 (09:22→20:29)
[2019-06-26] MEDS: POTASSIUM CHLORIDE 20 MEQ TABLET.ER PO ×3 (09:22→17:45)
[2019-06-26] MEDS: TOLNAFTATE 1% POWDER 45 GM BTL 1 APPLIC TOPICAL ×2 (09:23→20:28)
[2019-06-26] MEDS: MICONAZOLE NITRATE 2% CREAM 30 GM TUBE 1 APPLIC TOPICAL ×2 (09:23→20:28)
--- NOTE | 2019-06-26 13:45 | WPDNEURORHBP ---
Subjective Date/time seen: 06/26/19 13:45 Interval history: this 69-year-old is here because of critical illness myopathy and also peripheral neuropathy is doing fairly well denies any headache nausea vomiting chest pain shortness of breath fever chills or sore throat Review of Systems Review of Systems: All systems reviewed & are unremarkable except as noted in HPI and below Functional Status Ambulation Ability Ability to Ambulate 10 Feet: Minimum Assistance X 1 Ambulation Assistive Devices: Walker, Standard Transfers Ability Ability to Transfer In/Out of Chair: Minimum Assistance X 1 Exam Const: General: comfortable and no acute distress HENMT: General nose exam: Normal nares present Mouth: Yes moist mucous membranes Eyes: General: appearance normal, both eyes and all related structures Neck: Neck: supple and no JVD Resp: Effort & Inspection: normal respiratory effort Auscultation: clear to auscultation bilaterally Cardio: Rate: regular rate Rhythm: regular rhythm GI: GI Palp: Yes Soft to palpation Auscultation: normal bowel sounds Skin: General skin exam: normal color and no rashes or lesions noted Neuro: Other: patient is awake and alert well oriented time place and person his myopathy and neuropathy is slowly improving and doing better Extrem: General: normal to inspection Psych: Mental Status: mental status grossly normal Objective Data Vital Signs Vital Signs: Vital Signs - 24 hr 06/25/19 14:00 06/25/19 19:50 06/25/19 20:35 Temperature 36.1 C L Pulse Rate 83 85 88 Respiratory Rate 19 20 Blood Pressure 135/78 Pulse Oximetry 93 06/25/19 22:00 06/26/19 06:00 06/26/19 09:21 Temperature 36.3 C L 37.0 C Pulse Rate 85 87 87 Respiratory Rate 19 19 Blood Pressure 95/63 L 124/72 Pulse Oximetry 94 97 Intake/Output Intake/Output: Intake & Output 06/23/19 06/24/19 06/25/19 06/26/19 23:59 23:59 23:59 23:59 Intake Total 1410 1200 2140 960 Output Total 2050 1600 3075 1600 Balance -640 -400 -935 -640 Meds/Results Medications: Active Medications Generic Name Dose Route Start Last Admin Trade Name Freq PRN Reason Stop Dose Admin Acetaminophen 650 mg 06/20/19 09:00 06/26/19 11:53 Tylenol Tablet PO 650 mg TID [facility] Administration Albuterol 2.5 mg 06/19/19 20:54 Albuterol Sulf Neb 2.5mg/0.5ml NEBULIZE Q6H PRN Shortness Of Breath Or Wheezing Apixaban 2.5 mg 06/20/19 09:00 06/26/19 09:20 Eliquis PO 2.5 mg BID [facility] Administration Bumetanide 2 mg 06/20/19 09:00 06/26/19 09:21 Bumex Po PO 2 mg BID [facility] Administration Digoxin 125 mcg 06/20/19 09:00 06/26/19 09:21 Lanoxin Tab PO 125 mcg DAILY [facility] Administration Docusate Sodium 100 mg 06/20/19 09:00 06/26/19 09:21 Colace Capsule PO 100 mg Q12HR [facility] Administration Loperamide HCl 2 mg 06/24/19 17:46 06/24/19 18:21 Loperamide Hcl PO 2 mg PRN PRN Administration Diarrhea Metoprolol Tartrate 50 mg 06/19/19 21:00 06/26/19 09:21 Lopressor PO 50 mg Q12HR [facility] Administration Miconazole Nitrate 1 applic 06/20/19 21:00 06/26/19 09:23 Miconazole Nitrate 2% Cream TOPICAL 1 applic Q12HR [facility] Administration Non-Formulary Medication 1 cap 06/20/19 09:00 Indacaterol-Glycopyrrolate [Utibron Neohaler] INHALATION 07/20/19 09:01 BID [facility] Ondansetron HCl 4 mg 06/19/19 20:54 Zofran Odt PO Q6H PRN Nausea And Vomiting Pantoprazole Sodium 40 mg 06/19/19 21:00 06/26/19 09:22 Protonix PO 40 mg Q12HR [facility] Administration Potassium Chloride 20 meq 06/20/19 09:00 06/26/19 12:57 Kcl Tablet PO 20 meq TID [facility] Administration Salmeterol Xinafoate 1 puff 06/20/19 12:00 06/26/19 08:03 Serevent Diskus INHALATION 1 puff Q12HRT [facility] Administration Simethicone 125 mg 06/20/19 09:00 06/26/19 12:57 Phazyme PO 125 mg TID [facility] Administration Tiotropium [place] 1 cap 06/20/19 09:00 06/25
[2019-06-26 14:00] VITALS: BP 108/54; PULSE 69; RESP 19; TEMP 36.8; O2SAT 92
[2019-06-26 20:03] VITALS: PULSE 90; RESP 20
[2019-06-26 20:28] VITALS: PULSE 88
[2019-06-26 22:00] VITALS: BP 116/69; PULSE 81; RESP 17; TEMP 36.4; O2SAT 94
[2019-06-27] VITALS (8 sets, daily range): BP systolic 101–121; BP diastolic 60–67; PULSE 87–103; RESP 18–20; TEMP 36.5–38.4; O2SAT 92–97
[2019-06-27 05:39] LABS: Basophils Absolute Auto 0.1 K/mm3 (0.0-0.1); Basophils Percent Auto 0.6 % (0.2-1.2); Eosinophils Absolute Auto 0.2 K/mm3 (0-0.3); Eosinophils Percent Auto 1.4 % (0-4.4); Hematocrit 40.6 % (42.0-52.0); Hemoglobin 13.8 g/dL (14.0-18.0); Immature Granulocyte Absolute 0.11 K/mm3 (0.00-0.031); Lymphocytes Absolute Auto 2.04 K/mm3 (0.9-3.2); Lymphocytes Percent Auto 19.3 % (18.3-44.2); Mean Corpuscular Hemoglobin 31.8 pg (26-34); Mean Corpuscular Volume 93.5 fl (80-100); Mean Platelet Volume 10.7 fl (7.4-10.4); Monocytes Absolute Auto 1.3 K/mm3 (0.1-0.6); Monocytes Percent Auto 12.4 % (2.6-8.5); Neutrophils Absolute Auto 6.9 K/mm3 (1.3-6.7); Neutrophils Percent Auto 65.3 % (45.5-73.1); Platelet Count Result 223 k/mm3 (150-375); Red Blood Count 4.34 M/mm3 (4.6-6.20); Red Cell Distribution Width 15.6 % (11.5-14.5); White Blood Count 10.6 K/mm3 (4.5-10.0)
[2019-06-27 06:11] LABS: Blood Urea Nitrogen 51 mg/dL (9-20); Calcium 9.8 mg/dL (8.4-10.2); Carbon Dioxide > 40 mmol/L (22-30); Chloride 89 mmol/L (98-107); Estimated CRCL calculation 55 ml/min; Estimated Glomerular Filt Rate 50; Glucose 136 mg/dL (75-110); Potassium 4.4 mmol/L (3.4-5.0); Sodium 132 mmol/L (137-145)
[2019-06-27] MEDS: SALMETEROL XINAFOATE 50 MCG DISKUS 1 PUFF INHALATION ×2 (07:44→19:22)
[2019-06-27] MEDS: BUMETANIDE 1 MG TABLET 2 MG PO ×2 (09:09→18:43)
[2019-06-27] MEDS: ACETAMINOPHEN 325 MG TABLET 650 MG PO ×3 (09:09→18:42)
[2019-06-27] MEDS: SIMETHICONE 125 MG CHEW TAB PO ×3 (09:09→18:43)
[2019-06-27] MEDS: PANTOPRAZOLE 40 MG TABLET PO ×2 (09:10→21:07)
[2019-06-27] MEDS: APIXABAN 2.5 MG TABLET PO ×2 (09:10→18:42)
[2019-06-27] MEDS: POTASSIUM CHLORIDE 20 MEQ TABLET.ER PO ×3 (09:10→18:43)
[2019-06-27] MEDS: DOCUSATE SODIUM 100 MG CAPSULE PO ×2 (09:10→21:07)
[2019-06-27] MEDS: DIGOXIN TAB 125 MCG TABLET PO (09:11)
[2019-06-27] MEDS: METOPROLOL TARTRATE 50 MG TAB PO ×2 (09:14→21:07)
--- NOTE | 2019-06-27 10:05 | PCOTNOTE ---
Attempted to go see Patient for scheduled therapy session this morning. Patient is unable to be seen this morning by Occupational Therapy due to patient has had an incident this AM and is going down for testing. Per RN, wait until later to be seen. Will try back at a later time.
[2019-06-27 10:10] LABS: Basophils Absolute Auto 0.1 K/mm3 (0.0-0.1); Basophils Percent Auto 0.2 % (0.2-1.2); Eosinophils Percent Auto 0.1 % (0-4.4); Hematocrit 42.1 % (42.0-52.0); Hemoglobin 13.6 g/dL (14.0-18.0); Lymphocytes Absolute Auto 1.57 K/mm3 (0.9-3.2); Lymphocytes Percent Auto 7.7 % (18.3-44.2); Mean Corpuscular HGB Conc 32.3 g/dl (32-36); Mean Corpuscular Hemoglobin 29.9 pg (26-34); Mean Corpuscular Volume 92.5 fl (80-100); Mean Platelet Volume 10.4 fl (7.4-10.4); Monocytes Absolute Auto 1.5 K/mm3 (0.1-0.6); Monocytes Percent Auto 7.4 % (2.6-8.5); Neutrophils Absolute Auto 17.1 K/mm3 (1.3-6.7); Neutrophils Percent Auto 83.6 % (45.5-73.1); Platelet Count Result 206 k/mm3 (150-375); Red Blood Count 4.55 M/mm3 (4.6-6.20); Red Cell Distribution Width 15.5 % (11.5-14.5); White Blood Count 20.4 K/mm3 (4.5-10.0)
[2019-06-27 10:24] LABS: Blood Urea Nitrogen 50 mg/dL (9-20); Calcium 9.8 mg/dL (8.4-10.2); Carbon Dioxide 35 mmol/L (22-30); Chloride 89 mmol/L (98-107); Estimated CRCL calculation 59 ml/min; Estimated Glomerular Filt Rate 55; Glucose 190 mg/dL (75-110); Potassium 5.2 mmol/L (3.4-5.0); Sodium 131 mmol/L (137-145)
--- NOTE | 2019-06-27 11:03 | PC.NURSE ---
Dr Mayberry notified of CXR and CT results. also notified of CT results and of pending working up for elevated WBC and temperature.
--- NOTE | 2019-06-27 11:27 | PCPTNOTE ---
The patient treatment was not able to be completed on 06/27/2019 R.N advise not to see patient due to testing. Patient missed 60 minutes of physical therapy. Will try back later and will plan to continue treatment per plan of care.
[2019-06-27 11:39] LABS: Add Urine Microscopic? YES; Appearance Urine Clear (Clear); Bacteria Urine Trace /hpf; Bilirubin Urine Negative (Negative); Blood Urine 1+ (Negative); Color Urine Yellow (Yellow); Glucose Urine UA Negative (Negative); Ketones Urine Negative (Negative); Leukocyte Esterase Ur 3+ LEU/UL (Negative); Mucus Urine Rare /lpf; Nitrate Urine Negative (Negative); Protein Urine 2+ mg/dL (Negative); Specific Grav Ur 1.014 (1.001-1.035); Urobilinogen Urine Negative mg/dL (<2.0); WBC Urine >75 /hpf
[2019-06-27] MEDS: ONDANSETRON HCL ODT 4 MG TABLET PO (18:43)
[2019-06-27] MEDS: TOLNAFTATE 1% POWDER 45 GM BTL 1 APPLIC TOPICAL (21:07)
[2019-06-27] MEDS: MICONAZOLE NITRATE 2% CREAM 30 GM TUBE 1 APPLIC TOPICAL (21:07)
[2019-06-28 03:03] LABS: Glucose Point of Care 203 (65-105)
[2019-06-28 05:10] LABS: Hematocrit 40.2 % (42.0-52.0); Hemoglobin 13.2 g/dL (14.0-18.0); Mean Corpuscular HGB Conc 32.8 g/dl (32-36); Mean Corpuscular Hemoglobin 30.3 pg (26-34); Mean Corpuscular Volume 92.2 fl (80-100); Mean Platelet Volume 10.8 fl (7.4-10.4); Platelet Count Result 203 k/mm3 (150-375); Red Blood Count 4.36 M/mm3 (4.6-6.20); Red Cell Distribution Width 16.1 % (11.5-14.5); White Blood Count 34.8 K/mm3 (4.5-10.0)
[2019-06-28 05:31] LABS: Blood Urea Nitrogen 52 mg/dL (9-20); Calcium 9.8 mg/dL (8.4-10.2); Carbon Dioxide 32 mmol/L (22-30); Chloride 89 mmol/L (98-107); Estimated CRCL calculation 46 ml/min; Estimated Glomerular Filt Rate 40; Glucose 212 mg/dL (75-110); Potassium 4.7 mmol/L (3.4-5.0); Sodium 132 mmol/L (137-145)
[2019-06-28 06:00] VITALS: BP 125/79; PULSE 106; RESP 19; TEMP 37.4; O2SAT 94
[2019-06-28 06:54] LABS: Lactic Acid Reflex 2.1 mmol/L (0.7-2.1)
--- NOTE | 2019-06-28 07:13 | PC.NURSE ---
Message left for Nani Monge with Becky Fitzpatrick RN regarding patient status including vital signs, lab, and xray results. Nani will see patient this am. Patient resting quietly at this time with no distress noted.
--- NOTE | 2019-06-28 07:59 | PC.NURSE ---
Nani Monge called and status report update given. Orders being entered and she will see patient.
[2019-06-28 08:00] VITALS: PULSE 106; RESP 19; O2SAT 94
[2019-06-28] MEDS: SALMETEROL XINAFOATE 50 MCG DISKUS 1 PUFF INHALATION (08:39)
--- NOTE | 2019-06-28 09:02 | PC.NURSE ---
Message left again for to call to update on patient condition.
--- NOTE | 2019-06-28 09:08 | PC.NURSE ---
Dr Mayberry updated on patient condition - advised of orders from Nani Monge to transfer to MED SURG unit. He is agreeable with plan.
[2019-06-28 09:15] VITALS: BP 104/60; PULSE 75; RESP 22; TEMP 36.1; O2SAT 92
[2019-06-28 09:38] LABS: Reflex Lactic Acid Yes or No Add Lactic
--- NOTE | 2019-06-28 09:44 | PC.NURSE ---
Notified of pending transfer to med surg unit and update of condition given. Additional contact numbers received: Sanket Call - son /[phone] Silvia Isauro - [phone] Robert Alcantara- brother/[phone]
--- NOTE | 2019-06-28 10:02 | PCOTNOTE ---
Patient unable to be seen for therapy services this date, Patient having a change in medical status, and being transferred to the acute side for further workup.
[2019-06-28 10:08] LABS: Lactic Acid 2.2 mmol/L (0.7-2.1)
--- NOTE | 2019-06-28 10:30 | WPDNEURORHBP ---
Subjective Date/time seen: 06/28/19 1030 Interval history: this 69-year-old gentleman in a is here because of critical illness myopathy and neuropathy overnight he has developed bouts of vomiting for which an NG tube was placed and he had about 100 cubic centimeters of the fall fluid have os for the medical consult because of not only the swelling of the abdomen and also running leukocytosis without much of a temperature the patient is going to be moved to the acute medical floor for medical management and possibly surgical management if he does indeed have small-bowel obstruction however it is more likely that he does have ileus knowing his most recent rather complicated history The patient denies any headache further nausea vomiting has slowed down his generally weaker than before however quite with it no chest pain no shortness of breath no fever chills or sore throat Review of Systems Review of Systems: All systems reviewed & are unremarkable except as noted in HPI and below Functional Status Ambulation Ability Ability to Ambulate 10 Feet: Minimum Assistance X 1 Ambulation Assistive Devices: Walker, Standard Transfers Ability Ability to Transfer In/Out of Chair: Minimum Assistance X 1 Exam Const: General: comfortable and no acute distress HENMT: General nose exam: Normal nares present Mouth: Yes moist mucous membranes Eyes: General: appearance normal, both eyes and all related structures Neck: Neck: supple and no JVD Resp: Effort & Inspection: normal respiratory effort Auscultation: clear to auscultation bilaterally Cardio: Rate: regular rate Rhythm: regular rhythm GI: GI Palp: Yes Firmness to palpation present (GI) Other: the abdomen distended mildly tender diffusely however no focal tenderness noted about tenderness bowel sounds are present Urinary Catheter: Urinary Catheter: patent and draining Skin: General skin exam: normal color and no rashes or lesions noted Neuro: Other: patient has remained awake alert oriented follows all commands understand quite well his weakness is more prominent than before because of the medical issues is facing at the moment Extrem: General: normal to inspection Psych: Mental Status: mental status grossly normal Objective Data Vital Signs Vital Signs: Vital Signs - 24 hr 06/27/19 14:00 06/27/19 14:51 06/27/19 21:07 Temperature 37.4 C 37.5 C Pulse Rate 94 103 H 88 Respiratory Rate 18 18 Blood Pressure 101/65 121/60 Pulse Oximetry 94 92 06/27/19 22:00 06/28/19 06:00 Temperature 36.9 C 37.4 C Pulse Rate 101 H 106 H Respiratory Rate 20 19 Blood Pressure 115/67 125/79 Pulse Oximetry 92 94 Intake/Output Intake/Output: Intake & Output 06/25/19 06/26/19 06/27/19 06/28/19 23:59 23:59 23:59 23:59 Intake Total 2140 2380 580 2240 Output Total 3075 2750 3300 6930 Balance -246 -196 -0245 940 Meds/Results Medications: Active Medications Generic Name Dose Route Start Last Admin Trade Name Freq PRN Reason Stop Dose Admin Acetaminophen 650 mg 06/20/19 09:00 06/27/19 18:42 Tylenol Tablet PO 650 mg TID [facility] Administration Albuterol 2.5 mg 06/19/19 20:54 Albuterol Sulf Neb 2.5mg/0.5ml NEBULIZE Q6H PRN Shortness Of Breath Or Wheezing Apixaban 2.5 mg 06/20/19 09:00 06/27/19 18:42 Eliquis PO 2.5 mg BID [facility] Administration Bumetanide 2 mg 06/20/19 09:00 06/27/19 18:43 Bumex Po PO 2 mg BID [facility] Administration Digoxin 125 mcg 06/20/19 09:00 06/27/19 09:11 Lanoxin Tab PO 125 mcg DAILY [facility] Administration Docusate Sodium 100 mg 06/20/19 09:00 06/27/19 21:07 Colace Capsule PO 100 mg Q12HR [facility] Administration Ceftriaxone Sodium/Dextrose 1 gm in 50 mls @ 100 mls/hr 06/27/19 10:25 06/28/19 10:49 Rocephin 1 Gm/D5w 50 Ml IVPB 100 mls/hr QAM [facility] Administration Loperamide HCl 2 mg 06/24/19 17:46 06/24/19 18:21 Loperamide Hcl PO 2 mg PRN PRN Administration Diarrhea Metopro
--- NOTE | 2019-06-28 10:52 | WPDNEURORHBP ---
Subjective Date/time seen: 06/27/19 10:52 Interval history: This 69-year-old gentleman who is morbidly obese has chronic kidney disease diabetes mellitus atrial fibrillation and the primary diagnosis is critical illness neuropathy and critical illness myopathy was not feeling well early this morning on the and the multiple testing was obtained and he had leukocytosis along with the most likely evidence of the UTI because of a near fall during the therapy session he had he has had a CT brain was obtained it was negative but urinalysis did show evidence of UTI he was given a dose of Rocephin and he was feeling better later in the afternoon as I was called and told by the attending nurse. The patient was little bit groggy and sleepy however with it denies any headache nausea and vomiting at this time no abdominal pain chest pain he did have mild shortness of breath with the chest x-ray was negative. Review of Systems Review of Systems: All systems reviewed & are unremarkable except as noted in HPI and below Functional Status Ambulation Ability Ability to Ambulate 10 Feet: Minimum Assistance X 1 Ambulation Assistive Devices: Walker, Standard Transfers Ability Ability to Transfer In/Out of Chair: Minimum Assistance X 1 Exam Const: General: comfortable and no acute distress HENMT: General nose exam: Normal nares present Mouth: Yes moist mucous membranes Eyes: General: appearance normal, both eyes and all related structures Neck: Neck: supple and no JVD Resp: Effort & Inspection: normal respiratory effort Auscultation: clear to auscultation bilaterally Cardio: Rate: regular rate Rhythm: regular rhythm GI: GI Palp: Yes Soft to palpation Auscultation: normal bowel sounds Skin: General skin exam: normal color and no rashes or lesions noted Neuro: Other: Patient was awake oriented x3 however little groggy and sleepy and not feeling well he did have a little temperature which later subsided blood cultures were obtained he does have evidence of generalized weakness lower extremities more so than the upper extremities proximal more than distal which remained stable Extrem: General: normal to inspection Psych: Mental Status: mental status grossly normal Objective Data Vital Signs Vital Signs: Vital Signs - 24 hr 06/27/19 14:00 06/27/19 14:51 06/27/19 21:07 Temperature 37.4 C 37.5 C Pulse Rate 94 103 H 88 Respiratory Rate 18 18 Blood Pressure 101/65 121/60 Pulse Oximetry 94 92 06/27/19 22:00 06/28/19 06:00 Temperature 36.9 C 37.4 C Pulse Rate 101 H 106 H Respiratory Rate 20 19 Blood Pressure 115/67 125/79 Pulse Oximetry 92 94 Intake/Output Intake/Output: Intake & Output 06/25/19 06/26/19 06/27/19 06/28/19 23:59 23:59 23:59 23:59 Intake Total 2140 2380 580 2240 Output Total 3075 2750 3300 1300 Balance -916 -115 -0143 949 Meds/Results Medications: Active Medications Generic Name Dose Route Start Last Admin Trade Name Freq PRN Reason Stop Dose Admin Acetaminophen 650 mg 06/20/19 09:00 06/27/19 18:42 Tylenol Tablet PO 650 mg TID LAURA Administration Albuterol 2.5 mg 06/19/19 20:54 Albuterol Sulf Neb 2.5mg/0.5ml NEBULIZE Q6H PRN Shortness Of Breath Or Wheezing Apixaban 2.5 mg 06/20/19 09:00 06/27/19 18:42 Eliquis PO 2.5 mg BID LAURA Administration Bumetanide 2 mg 06/20/19 09:00 06/27/19 18:43 Bumex Po PO 2 mg BID LAURA Administration Digoxin 125 mcg 06/20/19 09:00 06/27/19 09:11 Lanoxin Tab PO 125 mcg DAILY LAURA Administration Docusate Sodium 100 mg 06/20/19 09:00 06/27/19 21:07 Colace Capsule PO 100 mg Q12HR LAURA Administration Ceftriaxone Sodium/Dextrose 1 gm in 50 mls @ 100 mls/hr 06/27/19 10:25 06/28/19 10:49 Rocephin 1 Gm/D5w 50 Ml IVPB 100 mls/hr QAM LAURA Administration Loperamide HCl 2 mg 06/24/19 17:46 06/24/19 18:21 Loperamide Hcl PO 2 mg PRN PRN Administration Diarrhea Metoprolol T
--- NOTE | 2019-06-28 10:53 | PC.NURSE ---
Per Dr. javier NG inserted to suction at 0800. KUB done and tube is in correct place. patient tolerated well. hooked to suction and 800cc of greenish, yellow secretions obtained. patient states starting to feel better. IV rocephin infusing without difficulty. no complaints of chest pain or shortness of breath. will continue to monitor.
--- NOTE | 2019-06-28 10:56 | PC.NURSE ---
Patient is being to transferred to third floor med surg. report called to Amanda. Patient and family aware of transfer.
--- NOTE | 2019-06-28 15:11 | PM.TDS ---
Transfer Discharge Sum: Prov Provider Date of admission: 06/19/19 17:57 Primary care physician: UNKNOWN,DOCTOR Admitting clinician: Timoteo Mayberry MD Consults: 06/28/19 Consult to Physician Routine Comment: Consulting Provider: Renee Ng on call pharmacy technician/MD group to consult: Hospitalist Group Reason for consultation: possible sepsis Has provider been notified: Yes DS: Admitting Diagnosis Admitting Diagnosis Admitting Diagnosis: Critical illness myopathy DS: Discharge Diagnosis Discharge Diagnosis (1) Urinary retention: Code(s): R33.9 - Retention of urine, unspecified Status: Acute (2) PIPE (acute kidney injury): Code(s): N17.9 - Acute kidney failure, unspecified Status: Acute (3) Chronic respiratory failure with hypoxia: Code(s): J96.11 - Chronic respiratory failure with hypoxia Status: Acute (4) Leukocytosis: Code(s): D72.829 - Elevated white blood cell count, unspecified Status: Acute (5) SBO (small bowel obstruction): Code(s): K56.609 - Unspecified intestinal obstruction, unspecified as to partial versus complete obstruction Status: Acute (6) Atrial fibrillation: Code(s): I48.91 - Unspecified atrial fibrillation Status: Acute (7) Ileus: Code(s): K56.7 - Ileus, unspecified Status: Acute (8) Leukocytosis: Code(s): D72.829 - Elevated white blood cell count, unspecified Status: Acute (9) UTI (urinary tract infection): Code(s): N39.0 - Urinary tract infection, site not specified Status: Acute (10) Morbid obesity: Code(s): E66.01 - Morbid (severe) obesity due to excess calories Status: Acute (11) Chronic kidney disease: Code(s): N18.9 - Chronic kidney disease, unspecified Status: Acute (12) Diabetes mellitus: Code(s): E11.9 - Type 2 diabetes mellitus without complications Status: Acute (13) Critical illness neuropathy: Code(s): G62.81 - Critical illness polyneuropathy Status: Acute (14) Critical illness myopathy: Code(s): G72.81 - Critical illness myopathy Status: Acute Transfer Discharge Sum: Med Medications Active and Home Medications: Home Medications Eliquis 2.5 mg PO BID 06/19/19 [History Confirmed 07/01/19] Utibron Neohaler 1 cap INHALATION BID 06/19/19 [History Confirmed 07/01/19] acetaminophen [Tylenol] 650 mg PO TID 06/19/19 [History Confirmed 07/01/19] albuterol sulfate 2.5 mg CONTINUOUS NEBULIZATION Q6H PRN 06/19/19 [History Confirmed 07/01/19] digoxin 125 mcg PO DAILY 06/19/19 [History Confirmed 07/01/19] metoprolol tartrate 50 mg PO Q12H 06/19/19 [History Confirmed 07/01/19] ondansetron HCl [Zofran] 4 mg PO Q6H PRN 06/19/19 [History Confirmed 07/01/19] pantoprazole [Protonix] 40 mg PO BID 06/19/19 [History Confirmed 07/01/19] potassium chloride 2 meq PO TID 06/19/19 [History Confirmed 07/01/19] simethicone [Gas Relief 80 (simethicone)] 120 mg PO TID 06/19/19 [History Confirmed 07/01/19] bumetanide 1 mg PO BID #0 tablet 07/01/19 [Rx Confirmed 07/01/19] levofloxacin [Levaquin] 750 mg PO DAILY #5 tablet 07/01/19 [Rx Confirmed 07/01/19] polyethylene glycol 3350 [Miralax] 17 gm PO DAILY #119 gm 07/01/19 [Rx] polyethylene glycol 3350 [Miralax] 17 gm PO DAILY #119 gm 07/01/19 [Rx Confirmed 07/01/19] Transfer Discharge Sum: Hosp Hospital Course Hospital course: Hans Gaytan is a 69 year old male was admitted due to critical illness myopathy / neuropathy however became sicker and suspected to have aspiration pneumonitis and/or urinary tract infection had to be transferred to the acute site with consultation from the hospitalist Time Spent with Patient Time attestation: Total time spent providing and/or coordinating transfer services: Exam Const: General: uncomfortable HENMT: General nose exam: Normal nares present Mouth: Yes moist mucous membranes Eyes: General: appearance normal, both eyes and
[2019-06-28 18:05] LABS: Glucose Point of Care 200 (65-105)
--- NOTE | 2019-07-05 10:26 | PC.NURSE ---
Blood cx are negative.
== END 2019-06-28 11:14 | disposition short-term general hospital (02) | DRG 92 ==
PROVIDERS: Internal Medicine; Admitting Provider Psychiatry & Neurology Neurology; Visit Provider Physician Assistant
DX: G72.81 Critical illness myopathy (principal); G62.81 Critical illness polyneuropathy; M86.171 Other acute osteomyelitis, right ankle and foot; N17.9 Acute kidney failure, unspecified; I82.629 Acute embolism and thrombosis of deep veins of unspecified upper extremity; I13.0 Hypertensive heart and chronic kidney disease with heart failure and stage 1 through stage 4 chronic kidney disease, or unspecified chronic kidney disease; Z68.41 Body mass index [BMI] 40.0-44.9, adult; N39.0 Urinary tract infection, site not specified; K56.7 Ileus, unspecified; J96.11 Chronic respiratory failure with hypoxia; K56.609 Unspecified intestinal obstruction, unspecified as to partial versus complete obstruction; D72.829 Elevated white blood cell count, unspecified; I25.2 Old myocardial infarction; E66.01 Morbid (severe) obesity due to excess calories; E11.22 Type 2 diabetes mellitus with diabetic chronic kidney disease; E87.6 Hypokalemia; E83.42 Hypomagnesemia; I50.9 Heart failure, unspecified; I48.91 Unspecified atrial fibrillation; K21.9 Gastro-esophageal reflux disease without esophagitis; K80.20 Calculus of gallbladder without cholecystitis without obstruction; N18.9 Chronic kidney disease, unspecified; R60.1 Generalized edema; R33.9 Retention of urine, unspecified; Z86.74 Personal history of sudden cardiac arrest; Z87.891 Personal history of nicotine dependence; Z79.4 Long term (current) use of insulin
CPT/HCPCS: 36415; 70450; 71045; 71046; 73060; 74019; 80048; 81001; 83605; 85025; 85027; 87040; 87077; 87086; 87088; 87186; 94640; 97110; 97116; 97162; 97166; 97530; 97535; 97542; A9270; J0696

== ENCOUNTER 2019-07-01 11:04 | Inpatient (IN) | payer MEDICARE, OTHER, SELFPAY ==
[2019-06-28 11:55] VITALS: PULSE 87; RESP 18; O2SAT 92
[2019-06-28 12:00] VITALS: BP 96/67; PULSE 87; RESP 18; TEMP 37; O2SAT 92
--- NOTE | 2019-06-28 12:20 | ADMGEN ---
This patient, Hans Gaytan, was admitted to [facility] Surg Room 316-01. Patient/family oriented to hospital policies and general routines including ID bracelet, bed and alarms, visiting hours, pain management, procedures, bathroom and other care routines, personal items, smoking policy, room service/diet, and visiting hours. Valuables list has been completed. Information on how to activate the Rapid Response Team has been discussed. Patient/Family are encouraged to report perceived risks to care and to ask questions if they do not understand what they are told or what they should do.
[2019-06-28] MEDS: LACTATED RINGERS 1,000 ML 100 ML IV CONT ×2 (12:51→21:51)
--- NOTE | 2019-06-28 13:22 | PM.IMHP ---
H&P: HPI History of Present Illness Chief complaint: SBO Narrative: Hans Gaytan is a 69 year old male who was admitted from [facility] for abdominal pain and found to have a small bowel obstruction. Patient states that he started having abdominal pain and started throwing up yesterday. His associated symptoms with this was abdominal bloating and chills. He said he has never had a small-bowel obstruction or ileus before. He has not had any abdominal surgeries that he can remember. He said his abdominal pain was a persistent pain that hurt all over and improved with the NG tube. Now that he has the NG tube, his nausea and abdominal pain has resolved. His abdomen is no longer bloated. He had a bowel movement this morning which was normal for him. He had some shortness of breath when his abdomen was bloated but that has also resolved. He denies diarrhea, constipation, chest pain or leg swelling. He says he feels weak but that has been going on for a while. Nursing states that they got a 1000 cc of green liquid once they placed the NG tube. Patient also denies any pain in his catheter site or lower abdomen. Per documentation, the patient has been hospitalized or in rehab for the last few months. He was originally hospitalized at [facility] after cardiac arrest which was thought to be due to respiratory failure and was on a ventilator and hospitalized for 3 weeks. He has over 500 pages of records which were briefly reviewed, this is a summary from his rehab admission: The patient is a 69-year-old male with a past medical history of chronic atrial fibrillation, hypoxemic respiratory failure, osteomyelitis, and chronic kidney disease who presented to [facility] Emergency room after falling at his home. While EMS was with the patient he had a cardiac arrest. He developed hypoxemia and oxygen desaturation to in the 70s and was mechanically ventilated at [facility] for approximately 3 weeks. He went really weaned off of a mechanical ventilation and was discharged to a [facility] facility on 4 liter nasal cannula during the day and BiPAP at night p.r.n. he had an episode of respiratory insufficiency with the few hours of admission and was transferred back to [facility]. The discharge him back to the [facility] facility and they again sent him to the hospital with respiratory insufficiency. He presented to [facility] on May 30, 2019 with hypoxemia and was admitted. He was tested for COVID-19 and returned negative. Echo showed an ejection fraction of 50%. He was diagnosed with acute respiratory failure with hypoxia. The presume the supplemental oxygen during the day and BiPAP at night and transferred [facility] on May 31, 2019 so that his respiratory could be managed in a hospital setting as he was receiving therapy. His hospitalization other has been significant for urinary retention with placement of a Mccarty catheter, respiratory insufficiency, upper abdominal pain, anasarca, electrolyte imbalance, acute on chronic renal failure, osteomyelitis of the right foot, atrial fibrillation, upper extremity DVT and diabetes mellitus. His upper abdominal pain is being treated with scheduled Tylenol, ultrasound showed gallbladder stone and mild wall thickening without acute cholecystitis. Is anasarca has improved on Lasix drip, he has since been converted to p.o. Bumex. His electrolyte imbalance were corrected. He is on 2 liters nasal cannula during the day and BiPAP at night. Nephrology followed for acute on chronic renal failure and is chronic creatinine is 1.7 which has risen to 1.9 here we with a baseline of creatinine 1.5 his osteomyelitis was already being treated with IV Rocephin and p.o. Flagyl and he will complete antibiotic therapy and June 20, 2019. Atrial fibrillation is controlled on metoprolol digoxin and Eliquis 2.5 milligram in ( due to creatinine ) his diabetes was not requiring any m
--- NOTE | 2019-06-28 13:51 | PCOTNOTE ---
Attempted OT evaluation this afternoon. RN recommends therapy evaluation to be completed tomorrow due to patient's condition. Will continue to attempt.
[2019-06-28 14:00] VITALS: BP 98/62; PULSE 93; RESP 18; TEMP 37.2; O2SAT 93
--- NOTE | 2019-06-28 14:09 | PCPTNOTE ---
Unable to see this pt for PT eval this date due to medical reasons. Will try again tomorrow.
[2019-06-28 18:05] LABS: Glucose Point of Care 159 (65-105)
[2019-06-28 21:50] VITALS: PULSE 88
[2019-06-28] MEDS: METOPROLOL TARTRATE INJ 5 MG/5 ML VIAL IV PUSH (21:50)
[2019-06-28 22:00] VITALS: BP 115/68; PULSE 110; RESP 20; TEMP 36.5; O2SAT 90
[2019-06-28 23:19] VITALS: O2SAT 92
[2019-06-29] VITALS (11 sets, daily range): BP systolic 114–118; BP diastolic 55–83; PULSE 64–90; RESP 18–20; TEMP 36.4–36.7; O2SAT 85–100; BMI 49.3; BMI 10.0
[2019-06-29 00:13] LABS: Glucose Point of Care 150 (65-105)
[2019-06-29 06:37] LABS: Glucose Point of Care 139 (65-105)
[2019-06-29 06:58] LABS: Hemoglobin 12.4 g/dL (14.0-18.0); Mean Corpuscular HGB Conc 31.8 g/dl (32-36); Mean Corpuscular Hemoglobin 29.8 pg (26-34); Mean Corpuscular Volume 93.8 fl (80-100); Platelet Count Result 183 k/mm3 (150-375); Red Blood Count 4.16 M/mm3 (4.6-6.20)
[2019-06-29 07:19] LABS: Alanine Aminotransferase 22 U/L (4-50); Albumin Level 3.7 g/dL (3.5-5.1); Alkaline Phosphatase 78 U/L (38-126); Aspartate Amino Transferase 27 U/L (17-59); Bilirubin,Total 0.7 mg/dL (0.2-1.3); Blood Urea Nitrogen 49 mg/dL (9-20); Calcium 9.5 mg/dL (8.4-10.2); Carbon Dioxide 39 mmol/L (22-30); Chloride 90 mmol/L (98-107); Estimated CRCL calculation 57 ml/min; Estimated Glomerular Filt Rate 50; Glucose 137 mg/dL (75-110); Magnesium 2.1 mg/dL (1.6-2.3); Potassium 3.7 mmol/L (3.4-5.0); Sodium 134 mmol/L (137-145)
[2019-06-29 07:31] LABS: Digoxin 0.6 ng/mL (0.8-2.0)
[2019-06-29 07:32] LABS: INR 1.1; Prothrombin Time 14.2 Seconds (11.1-14.7)
--- NOTE | 2019-06-29 07:34 | ECG_ITS ---
Measurements Intervals [place] Rate: 102 P: [place]: 0 QRS: -45 QRSD: 116 T: 60 QT: 339 QTc: 443 Interpretive Statements ATRIAL FIBRILLATION WITH RAPID VENTRICULAR RESPONSE LEFT AXIS DEVIATION INTRAVENTRICULAR CONDUCTION DELAY POOR R WAVE PROGRESSION, ANTERIOR LEADS BORDERLINE T WAVE ABNORMALITY- INF/LAT LEADS ABNORMAL ECG Electronically Signed On 06-29-2019 9:12:27 CDT by Ayush Parker D.O.
[2019-06-29] MEDS: METOPROLOL TARTRATE INJ 5 MG/5 ML VIAL IV PUSH (09:50)
[2019-06-29] MEDS: LACTATED RINGERS 1,000 ML 100 ML IV CONT (09:50)
[2019-06-29 12:27] LABS: Glucose Point of Care 134 (65-105)
--- NOTE | 2019-06-29 12:50 | PM.IMPN ---
Progress Note: A&P Assessment and Plan (1) SBO (small bowel obstruction): Code(s): K56.609 - Unspecified intestinal obstruction, unspecified as to partial versus complete obstruction Status: Acute Assessment and Plan: -----symptoms and x-ray consistent with small-bowel obstruction versus ileus. NG tube was placed 06/27 and his symptoms resolved. New imaging this morning showed no dilated loops of bowel or any obstruction. Likely more of an ileus. He has not had any abdominal surgeries and did not have any issues with the NG tube being clamped so I am going to remove the NG tube and start him on clear liquids. Will monitor for additional symptoms and advance his diet as tolerated. (2) UTI (urinary tract infection): Code(s): N39.0 - Urinary tract infection, site not specified Status: Acute Assessment and Plan: -----patient has a Mccarty catheter placed back in May. Confirmed Pseudomonas UTI. Will start Levaquin. QTC 443. (3) Leukocytosis: Code(s): D72.829 - Elevated white blood cell count, unspecified Status: Acute Assessment and Plan: -----improving. Likely combination of UTI and dehydration from above. Blood cultures are negative to date. (4) Atrial fibrillation: Code(s): I48.91 - Unspecified atrial fibrillation Status: Acute Assessment and Plan: -----when asked, the patient has no knowledge of atrial fibrillation or irregular heartbeats. 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 When asked why he is on digoxin and Eliquis he could not tell me. Will restart Eliquis, digoxin and metoprolol. (5) Diabetes mellitus: Code(s): E11.9 - Type 2 diabetes mellitus without complications Status: Acute Assessment and Plan: -----last glucose 134. Will continue sliding scale insulin at this time. (6) Chronic kidney disease: Code(s): N18.9 - Chronic kidney disease, unspecified Status: Acute Assessment and Plan: -----baseline creatinine around 1.3-1.4. Today he is back to 1.4 after IV hydration. It looks like he has had issues with hypervolemia in the past so I will stop the fluids now that he is drinking. Will hold off on the diuretic as of now to avoid dehydration again. May need to start it in 1-2 days. Continue monitoring (7) Critical illness myopathy: Code(s): G72.81 - Critical illness myopathy Status: Acute Assessment and Plan: -----continue PT and OT (8) PIPE (acute kidney injury): Code(s): N17.9 - Acute kidney failure, unspecified Status: Acute Assessment and Plan: -----creatinine back to baseline. See above (9) Chronic respiratory failure with hypoxia: Code(s): J96.11 - Chronic respiratory failure with hypoxia Status: Acute Assessment and Plan: -----continue oxygen p.r.n. to keep saturations greater than 90. Patient wears a BiPAP at night. Will continue with this. Time Spent With Patient Time with patient: 25 - 35 minutes Subjective Date/time seen: 06/29/19 12:50 Interval history: Pt is a 69-year-old here for UTI and ileus. Patient was seen today and has had the NG tube clamped for a few hours without any issue. He denies nausea, vomiting, abdominal pain, chest pain or shortness of breath. He has not tried anything by mouth yet. Review of Systems Review of Systems: All systems reviewed & are unremarkable except as noted in HPI and below Exam Narrative: Exam Narrative: General: Overweight patient resting comfortably in bed in no acute distress HEENT: Normocephalic, NG intact Neck: Supple Resp: CTA Heart: Irregularly irregular Abd: Soft, nontender. No pain to palpation. Positive bowel sounds Skin: Warm and dry Extremities: No swelling, erythema or pain to palpation. Neuro: Alert and Oriented x4 . CN 2-12 intact. No focal neurological deficits. Objective Data
[2019-06-29] MEDS: PANTOPRAZOLE 40 MG TABLET PO ×2 (16:02→20:11)
[2019-06-29] MEDS: DIGOXIN TAB 125 MCG TABLET PO (16:02)
[2019-06-29 17:24] LABS: Glucose Point of Care 161 (65-105)
[2019-06-29] MEDS: APIXABAN 2.5 MG TABLET PO (18:14)
[2019-06-29] MEDS: METOPROLOL TARTRATE 50 MG TAB PO (20:11)
[2019-06-29 23:34] LABS: Glucose Point of Care 130 (65-105)
[2019-06-30] MEDS: ONDANSETRON INJ 4 MG/2 ML VIAL IV PUSH (01:29)
[2019-06-30 06:00] VITALS: BP 115/63; PULSE 86; RESP 18; TEMP 36.8; O2SAT 94
[2019-06-30 06:09] LABS: Glucose Point of Care 119 (65-105)
[2019-06-30 07:01] LABS: Basophils Absolute Auto 0.1 K/mm3 (0.0-0.1); Basophils Percent Auto 0.4 % (0.2-1.2); Eosinophils Absolute Auto 0.2 K/mm3 (0-0.3); Eosinophils Percent Auto 0.8 % (0-4.4); Hematocrit 39.5 % (42.0-52.0); Hemoglobin 12.5 g/dL (14.0-18.0); Immature Granulocyte Absolute 0.27 K/mm3 (0.00-0.031); Immature Granulocyte Percent A 1.4 % (0-0.5); Immature Platelet Fraction Pct 4.6 % (0.9-11.2); Lymphocytes Absolute Auto 1.82 K/mm3 (0.9-3.2); Lymphocytes Percent Auto 9.4 % (18.3-44.2); Mean Corpuscular HGB Conc 31.6 g/dl (32-36); Mean Corpuscular Hemoglobin 29.6 pg (26-34); Mean Corpuscular Volume 93.4 fl (80-100); Mean Platelet Volume 10.5 fl (7.4-10.4); Monocytes Absolute Auto 1.8 K/mm3 (0.1-0.6); Monocytes Percent Auto 9.4 % (2.6-8.5); Neutrophils Absolute Auto 15.2 K/mm3 (1.3-6.7); Neutrophils Percent Auto 78.6 % (45.5-73.1); Nucleated Red Blood Cells Perc 0.1 % (0.0-0.2); Platelet Count Result 175 k/mm3 (150-375); Red Blood Count 4.23 M/mm3 (4.6-6.20); Red Cell Distribution Width 15.3 % (11.5-14.5); White Blood Count 19.3 K/mm3 (4.5-10.0)
[2019-06-30 07:24] LABS: Blood Urea Nitrogen 40 mg/dL (9-20); Calcium 9.1 mg/dL (8.4-10.2); Carbon Dioxide 37 mmol/L (22-30); Chloride 88 mmol/L (98-107); Estimated CRCL calculation 71 ml/min; Estimated Glomerular Filt Rate > 60; Glucose 113 mg/dL (75-110); Potassium 3.6 mmol/L (3.4-5.0); Sodium 132 mmol/L (137-145)
[2019-06-30 08:56] LABS: Glucose Point of Care 108 (65-105)
--- NOTE | 2019-06-30 09:50 | PM.IMPN ---
Progress Note: A&P Assessment and Plan (1) SBO (small bowel obstruction): Code(s): K56.609 - Unspecified intestinal obstruction, unspecified as to partial versus complete obstruction Status: Acute Assessment and Plan: -----NG tube removed yesterday and patient tolerated clear liquids. He is having bowel movements and has not had any nausea or vomiting. Will increase diet at this time. NG tube was placed 06/27 and removed 06/28. New imaging 06/28 showed no dilated loops of bowel or any obstruction. Likely more of an ileus. Will monitor for additional symptoms and advance his diet as tolerated. (2) UTI (urinary tract infection): Code(s): N39.0 - Urinary tract infection, site not specified Status: Acute Assessment and Plan: -----patient has a Mccarty catheter placed back in May. Confirmed Pseudomonas UTI. Continue Levaquin. QTC 443. Catheter changed out today with some blood noted in the meatus. Looks like it was pulling a bit so the statlock is being adjusted. Will montior for more symptoms, if blood continues, will image the area. (3) Leukocytosis: Code(s): D72.829 - Elevated white blood cell count, unspecified Status: Acute Assessment and Plan: -----improving. Likely combination of UTI and dehydration from above. Blood cultures are negative to date. (4) Atrial fibrillation: Code(s): I48.91 - Unspecified atrial fibrillation Status: Acute Assessment and Plan: -----when asked, the patient has no knowledge of atrial fibrillation or irregular heartbeats. 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 When asked why he is on digoxin and Eliquis he could not tell me. Will restart Eliquis, digoxin and metoprolol. (5) Diabetes mellitus: Code(s): E11.9 - Type 2 diabetes mellitus without complications Status: Acute Assessment and Plan: -----last glucose 108. Will continue sliding scale insulin at this time. (6) Chronic kidney disease: Code(s): N18.9 - Chronic kidney disease, unspecified Status: Acute Assessment and Plan: -----Back to normal. Fluids stopped, will hold diuretics at this time as he is euvolemic. (7) Critical illness myopathy: Code(s): G72.81 - Critical illness myopathy Status: Acute Assessment and Plan: -----continue PT and OT (8) PIPE (acute kidney injury): Code(s): N17.9 - Acute kidney failure, unspecified Status: Acute Assessment and Plan: -----creatinine back to baseline. See above (9) Chronic respiratory failure with hypoxia: Code(s): J96.11 - Chronic respiratory failure with hypoxia Status: Acute Assessment and Plan: -----continue oxygen p.r.n. to keep saturations greater than 90. Patient wears a BiPAP at night. Will continue with this. Subjective Date/time seen: 06/30/19 09:50 Interval history: Pt is a 69-year-old here for UTI and ileus. Patient was seen today and has no complaints. He states that he no longer has any nausea, vomiting or abdominal pain. There was blood around his meatus and I asked if he was having any pain in that area and he said no. He got catheterized this morning and was a bit painful. He has had some bowel movements today. He denies chest pain, shortness of breath, fevers or chills. Exam Narrative: Exam Narrative: General: Overweight patient resting comfortably in bed in no acute distress HEENT: Normocephalic Resp: CTA Heart: Irregularly irregular Abd: Soft, nontender. No pain to palpation. Positive bowel sounds : Blood coming out of the meatus, very small amount in the tubing of the cath. Fungus noted in the folds. Skin: Warm and dry Extremities: No swelling, erythema or pain to palpation. Neuro: Alert and Oriented x4 . CN 2-12 intact. No focal neurological deficits. Objective Data Vital Signs Vital Signs: Vital Signs - 24
[2019-06-30] MEDS: APIXABAN 2.5 MG TABLET PO ×2 (11:14→17:52)
[2019-06-30] MEDS: PANTOPRAZOLE 40 MG TABLET PO ×2 (11:14→20:36)
[2019-06-30] MEDS: METOPROLOL TARTRATE 50 MG TAB PO ×2 (11:14→20:36)
[2019-06-30 11:56] LABS: Glucose Point of Care 147 (65-105)
[2019-06-30] MEDS: DIGOXIN TAB 125 MCG TABLET PO (13:56)
[2019-06-30 14:00] VITALS: BP 123/75; PULSE 82; RESP 18; TEMP 36.3; O2SAT 100
[2019-06-30 18:02] LABS: Glucose Point of Care 116 (65-105)
[2019-06-30 20:36] VITALS: PULSE 76
[2019-06-30 21:07] LABS: Glucose Point of Care 133 (65-105)
[2019-06-30 21:41] VITALS: RESP 19; O2SAT 91
[2019-06-30 21:43] VITALS: RESP 19; O2SAT 91
[2019-06-30 22:00] VITALS: BP 106/68; PULSE 79; RESP 18; TEMP 35.7; O2SAT 94
--- NOTE | ~2019-07-01 | XR_ITS ---
EXAMINATION: XR abdomen obstructive series DATE: 06/29/2019 06:08 INDICATION: Ileus versus small bowel obstruction TECHNIQUE: Upright and supine views of the abdomen were obtained. COMPARISON: 06/28/2019 FINDINGS: The nasogastric tube is in the stomach. No definite persistently dilated loops of bowel are identified. The abdomen is relatively gasless. The colon is normal in caliber. IMPRESSION: 1. Unremarkable abdominal radiographs. Reviewed, dictated and finalized at location A.
[2019-07-01 02:10] VITALS: O2SAT 90
[2019-07-01 06:00] VITALS: BP 103/67; PULSE 79; RESP 18; TEMP 36.1; O2SAT 90
[2019-07-01 06:29] LABS: Hemoglobin 12.4 g/dL (14.0-18.0); Mean Corpuscular HGB Conc 31.8 g/dl (32-36); Mean Corpuscular Hemoglobin 29.7 pg (26-34); Mean Corpuscular Volume 93.3 fl (80-100); Mean Platelet Volume 10.3 fl (7.4-10.4); Platelet Count Result 201 k/mm3 (150-375); Red Blood Count 4.18 M/mm3 (4.6-6.20); Red Cell Distribution Width 14.6 % (11.5-14.5); White Blood Count 12.8 K/mm3 (4.5-10.0)
[2019-07-01 06:50] LABS: Blood Urea Nitrogen 31 mg/dL (9-20); Carbon Dioxide > 40 mmol/L (22-30); Chloride 90 mmol/L (98-107); Estimated CRCL calculation 66 ml/min; Estimated Glomerular Filt Rate 60; Glucose 123 mg/dL (75-110); Potassium 3.9 mmol/L (3.4-5.0); Sodium 133 mmol/L (137-145)
[2019-07-01 07:13] LABS: Free T4 Free Thyroxine 1.15 ng/mL (0.78-2.19)
[2019-07-01 08:20] VITALS: PULSE 53
[2019-07-01] MEDS: METOPROLOL TARTRATE 50 MG TAB PO (08:20)
[2019-07-01] MEDS: APIXABAN 2.5 MG TABLET PO (08:20)
[2019-07-01 08:21] VITALS: PULSE 53
[2019-07-01] MEDS: DIGOXIN TAB 125 MCG TABLET PO (08:21)
[2019-07-01] MEDS: PANTOPRAZOLE 40 MG TABLET PO (08:21)
[2019-07-01 08:42] LABS: Glucose Point of Care 115 (65-105)
--- NOTE | 2019-07-01 12:40 | PM.DS ---
DS: Summary Hospital Course Reason for hospitalization: Small-bowel obstruction, UTI Hospital Course: Patient is a 69-year-old male who the hospitalist were consulted on due to small-bowel obstruction and UTI while at the rehab center. Patient's white blood cell count was initially 34.8 with a urine culture that grew out Pseudomonas. The patient's symptoms and white blood cell count improved with treatment. The patient also had some nausea vomiting and imaging showed possible small bowel obstruction. An NG tube was placed and the patient was moved to the medical floor. The patient had no history of abdominal surgeries it was a low risk of a high-grade obstruction. Conservative treatment improved his symptoms greatly and he was able to get the NG tube removed without any issue. The day of discharge he was eating and drinking well and having regular bowel movements. He also had PIPE likely due to his dehydration and UTI which improved with fluids. Overall, the patient was improved and was [facility]. Status at Discharge Overall status at discharge: patient is progressing back to baseline Time Spent with Patient Time attestation: Total time spent providing and/or coordinating discharge services:34 min Time spent: Greater than 30 minutes Exam Narrative: Exam Narrative: General: Overweight patient resting comfortably in bed in no acute distress HEENT: Normocephalic Resp: CTA Heart: Irregularly irregular Abd: Soft, nontender. No pain to palpation. Positive bowel sounds Skin: Warm and dry Extremities: No swelling, erythema or pain to palpation. Neuro: Alert and Oriented x4 . CN 2-12 intact. No focal neurological deficits. DS: Data Data Completed and Pending Labs on day of discharge: Labs from last 24 hours 07/01/19 07/01/19 07/01/19 08:18 05:56 05:56 WBC RBC Hgb Hct MCV MCH MCHC RDW Plt Count MPV Sodium 133 L Potassium 3.9 Chloride 90 L Carbon Dioxide > 40 H BUN 31 H Creatinine 1.20 Estim Creat Clear Calc 66 Estimated GFR 60 Glucose 123 H POC Capillary Glucose 115 H Calcium 9.0 Free T4 1.15 07/01/19 06/30/19 06/30/19 05:56 20:34 17:48 WBC 12.8 H RBC 4.18 L Hgb 12.4 L Hct 39.0 L MCV 93.3 MCH 29.7 MCHC 31.8 L RDW 14.6 H Plt Count 201 MPV 10.3 Sodium Potassium Chloride Carbon Dioxide BUN Creatinine Estim Creat Clear Calc Estimated GFR Glucose POC Capillary Glucose 133 H 116 H Calcium Free T4 Discharge Plan Discharge Attending physician on discharge: Brain Gonzalez Consulting providers: Ayush Parker ; Alex Cherry Discharging Clinician: Nani Monge [facility]) Activity: as tolerated Diet: as tolerated and diabetic Discharge Instructions: -Please note the medication changes. If patient starts to have increased swelling, may need to increase bumetanide again. Please only give high dose protonix for one month. Okay to go back to 20mg daily dosing after one month if no concern for ulcers. -Follow up TSH in 6 weeks -Continue with routine bowel regimen -Continue PT and OT -Worrisome signs and symptoms to consult the hospitalist for: worsening abdominal pain, persistent vomiting, chest pain, shortness of breath, or any other worrisome symptom. Patient Instructions: Apixaban (By mouth) Stand Alone Forms: General Discharge Information Follow-up/Referrals: UNKNOWN,DOCTOR [Primary Care Provider] - (pcp after discharge from [facility]. Will need repeat TSH) Date of admission: 07/01/19 11:04 Primary Care Provider: UNKNOWN,DOCTOR Admitting Provider: Brain Gonzalez Discharge Date/Time: 07/01/19 14:31 Attending physician on admission: Brain Gonzalez Condition: Stable Quality VTE Prophylaxis VTE prophylaxis: mechanical ordered
[2019-07-01 12:56] LABS: Glucose Point of Care 104 (65-105)
--- NOTE | 2019-07-02 13:04 | PCCCNOTE ---
07/01: Sp[facility] P[facility] who is unable to [facility] this patient in his system and who states that the [facility] needs to be contacted instead. Researching number to call. Clinicals have been faxed to our current contact fax.
== END 2019-07-01 14:31 | DRG 389 ==
PROVIDERS: Physician Assistant; Admitting Provider Internal Medicine; Visit Provider Internal Medicine
DX: K56.609 Unspecified intestinal obstruction, unspecified as to partial versus complete obstruction (principal); N39.0 Urinary tract infection, site not specified; N17.9 Acute kidney failure, unspecified; J96.11 Chronic respiratory failure with hypoxia; G72.81 Critical illness myopathy; I48.91 Unspecified atrial fibrillation; N18.9 Chronic kidney disease, unspecified; E11.9 Type 2 diabetes mellitus without complications
CPT/HCPCS: 36415; 74019; 80048; 80076; 80162; 83735; 84439; 84443; 85025; 85027; 85055; 85610; 93005; 97110; 97161; 97166; 97530; A9270; J1956; J2405; J7120

== ENCOUNTER 2019-07-01 15:50 | IRF | payer MEDICARE, OTHER, SELFPAY ==
--- NOTE | ~2019-07-01 | XR_ITS ---
EXAMINATION: XR chest 2V EXAM DATE: 07/15/2019 19:05 INDICATION: Change in condition. TECHNIQUE: Frontal and lateral projections of the chest obtained and reviewed. Comparison is made to prior examination from 06/28/2019. FINDINGS: The lungs are clear. There are no pleural effusions. The cardiomediastinal silhouette is within normal limits. There is no pneumothorax suspected. The bones and soft tissues are unremarkab le. IMPRESSION: No acute cardiopulmonary findings. Reviewed, dictated and finalized at location A.
--- NOTE | ~2019-07-01 | XR_ITS ---
EXAMINATION: XR abdomen obstructive series EXAM DATE: 07/15/2019 19:05 INDICATION: Nausea, no other complaints. TECHNIQUE: Frontal upright projection of the upper abdomen, frontal projection of the lower abdomen f or interpretation. Comparison is made to prior examination from 06/29/2019. FINDINGS: There is expected amount of colonic stool and gas. No small bowel dilation, nonobstructiv e bowel gas pattern. There are no suspicious calcifications identified. There is no organomegaly suspected. The bones are unremarkable moderate thoracolumbar disc disease.. There is no free intr aperitoneal air. The lung bases are clear. There is no significant interval change. IMPRESSION: Unremarkable abdomen x-ray exam. Reviewed, dictated and finalized at location A.
--- NOTE | ~2019-07-01 | US_ITS ---
EXAMINATION: US venous doppler [facility] DATE: 07/12/2019 13:45 INDICATION: Lower limb swelling. TECHNIQUE: Grayscale ultrasound images without and with compression and Doppler ultrasound images of the bilateral lower extremity veins were obtained. COMPARISON: None. FINDINGS: The visualized portions of right common femoral vein, profunda (deep) femoral vein, femoral vein, pop liteal vein, peroneal veins, posterior tibial veins, and greater saphenous vein outflow are patent. The visualized portions of left common femoral vein, profunda femoral vein, femoral vein, popliteal v ein, peroneal veins, posterior tibial veins, and greater saphenous vein outflow are patent. IMPRESSION: 1. No deep venous thrombosis. Reviewed, dictated and finalized at location A.
--- NOTE | 2019-07-01 16:26 | ADMGEN ---
This patient, Hans Gaytan, was admitted to [facility] Room 222-01. Patient/family oriented to hospital policies and general routines including ID bracelet, bed and alarms, visiting hours, pain management, procedures, bathroom and other care routines, personal items, smoking policy, room service/diet, and visiting hours. Valuables list has been completed. Information on how to activate the Rapid Response Team has been discussed. Patient/Family are encouraged to report perceived risks to care and to ask questions if they do not understand what they are told or what they should do.
[2019-07-01 17:21] VITALS: BP 123/72; PULSE 70; RESP 20; TEMP 36.7; O2SAT 96
[2019-07-01 17:22] VITALS: BMI 47.2
[2019-07-01 19:02] VITALS: PULSE 70; RESP 20; O2SAT 96
[2019-07-01] MEDS: BUMETANIDE 1 MG TABLET PO (19:36)
[2019-07-01] MEDS: APIXABAN 2.5 MG TABLET PO (19:36)
[2019-07-01] MEDS: ACETAMINOPHEN 325 MG TABLET 650 MG PO (19:36)
[2019-07-01] MEDS: SIMETHICONE 125 MG CHEW TAB PO (19:37)
[2019-07-01] MEDS: POTASSIUM CHLORIDE 10 MEQ TABLET.ER 20 MEQ PO (19:37)
[2019-07-01 20:38] VITALS: PULSE 70
[2019-07-01] MEDS: METOPROLOL TARTRATE 50 MG TAB PO (20:38)
[2019-07-01] MEDS: PANTOPRAZOLE 40 MG TABLET PO (20:38)
[2019-07-01 21:23] LABS: Glucose Point of Care 183 (65-105)
[2019-07-01 22:00] VITALS: BP 113/63; PULSE 92; RESP 20; TEMP 37; O2SAT 95
[2019-07-02 04:54] LABS: Basophils Absolute Auto 0.1 K/mm3 (0.0-0.1); Basophils Percent Auto 0.4 % (0.2-1.2); Eosinophils Absolute Auto 0.2 K/mm3 (0-0.3); Eosinophils Percent Auto 1.9 % (0-4.4); Hematocrit 38.3 % (42.0-52.0); Hemoglobin 12.3 g/dL (14.0-18.0); Immature Granulocyte Absolute 0.38 K/mm3 (0.00-0.031); Immature Granulocyte Percent A 3.2 % (0-0.5); Lymphocytes Absolute Auto 1.86 K/mm3 (0.9-3.2); Lymphocytes Percent Auto 15.8 % (18.3-44.2); Mean Corpuscular HGB Conc 32.1 g/dl (32-36); Mean Corpuscular Hemoglobin 29.7 pg (26-34); Mean Corpuscular Volume 92.5 fl (80-100); Mean Platelet Volume 10.1 fl (7.4-10.4); Monocytes Absolute Auto 1.1 K/mm3 (0.1-0.6); Monocytes Percent Auto 9.1 % (2.6-8.5); Neutrophils Absolute Auto 8.2 K/mm3 (1.3-6.7); Neutrophils Percent Auto 69.6 % (45.5-73.1); Platelet Count Result 202 k/mm3 (150-375); Red Blood Count 4.14 M/mm3 (4.6-6.20); Red Cell Distribution Width 14.8 % (11.5-14.5); White Blood Count 11.8 K/mm3 (4.5-10.0)
[2019-07-02 05:22] LABS: Blood Urea Nitrogen 30 mg/dL (9-20); Calcium 9.2 mg/dL (8.4-10.2); Carbon Dioxide > 40 mmol/L (22-30); Chloride 92 mmol/L (98-107); Estimated CRCL calculation 66 ml/min; Estimated Glomerular Filt Rate 60; Glucose 137 mg/dL (75-110); Potassium 4.4 mmol/L (3.4-5.0); Sodium 133 mmol/L (137-145)
[2019-07-02 06:00] VITALS: BP 115/64; PULSE 72; RESP 18; TEMP 36.3; O2SAT 93
[2019-07-02 06:54] LABS: Glucose Point of Care 136 (65-105)
--- NOTE | 2019-07-02 11:00 | WPDREHABHP ---
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 The patient is a 69-year-old white male with a past medical history of chronic atrial fibrillation, hypoxemic ischemic respiratory failure, osteomyelitis, chronic kidney disease who initially presented in April to [facility] Emergency room after a fall at home. The patient had a cardiac arrest with hypoxemia and was not mechanically ventilated at [facility] for approximately 3 weeks. He was weaned off of mechanical ventilation and remain on oxygen per nasal cannula. He was transferred to a [place] hospital however he continued to have episodes of respiratory insufficiency and was admitted to [facility] on May 30, 2019 with hypoxemia. He was tested negative for COVID-19. They resumed supplemental oxygen during the day and placed him on BiPAP at night. He was transferred to on May 31, 2019 so that his respiratory status could be managed. He completed his antibiotic therapy of IV Rocephin and p.o. Flagyl and June 20, 2019 for osteomyelitis. 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 He was progressing well with therapy but on June 27, 2019 he started experiencing abdominal pain and was found to have a small-bowel obstruction. He was admitted to medical floor on June 28, 2019 and NG tube was placed. Lactic acid was mildly elevated and he was started on IV fluids. His symptoms and x-ray were consistent with small-bowel obstruction versus ileus. The patient had 1000 cubic centimeters of bile 1 out once than tube was placed since symptoms have resolved. The patient also had the evidence of the urinary tract infection which was treated with the antibiotics the patient's abdomen is no longer bloated any had a bowel movement. Imaging on June 28 showed no dilated loops of bowel or any obstruction. The NG tube was removed on June 28 and is tolerating a diet. He had a Mccarty catheter placed in May and you a confirms current Pseudomonas UTI. The catheter was changed out with some blood noted. He will continue Levaquin till July 05 leukocytosis is improving and was likely a combination of UTI and dehydration along with small-bowel obstruction. Atrial fibrillation is controlled on metoprolol digoxin on Eliquis. His hospitalization has been significant for urinary retention with replacement of Mccarty catheter hypotension hyponatremia leukocytosis anemia respiratory insufficiency about abdominal pain ileus acute kidney injury anasarca electrolyte imbalances acute on chronic renal failure osteomyelitis of the right foot atrial fibrillation lower extremity DVT and diabetes mellitus. Now is awake alert x4 and is makes silly back to his baseline when he was recuperating in the rehab however he has developed treated by this lengthy hospitalization and is requiring physical and occupational therapy he will be discharged T on IV Levaquin the patient has not traveled outside the [place] are had contact with someone who is ill that has traveled outside the [place] in the past 21 days. Patient has not traveled to an area within the [place] that is experiencing no transmission of the Coronavirus and has not had close personal contact with anyone that has. The patient does not have a fever. The patient does not have any new lower respiratory illness symptoms. He wears BiPAP at night. He was tested as for COVID-19 and the test was negative. Therapy was initiated at the acute care facility and the patient transferred to us from [facility] on July 01, 2019 FALLS OR SURGERIES: The patient has had no davey
[2019-07-02] MEDS: polyethylene glycoL 3350 17 GM POWD.PACK PO (11:05)
[2019-07-02] MEDS: ACETAMINOPHEN 325 MG TABLET 650 MG PO ×3 (11:13→19:03)
[2019-07-02 11:14] VITALS: PULSE 72
[2019-07-02] MEDS: DIGOXIN TAB 125 MCG TABLET PO (11:14)
[2019-07-02] MEDS: APIXABAN 2.5 MG TABLET PO ×2 (11:14→19:05)
[2019-07-02] MEDS: BUMETANIDE 1 MG TABLET PO ×2 (11:14→19:05)
[2019-07-02] MEDS: METOPROLOL TARTRATE 50 MG TAB PO ×2 (11:15→21:06)
[2019-07-02] MEDS: POTASSIUM CHLORIDE 10 MEQ TABLET.ER 20 MEQ PO ×3 (11:16→19:05)
[2019-07-02] MEDS: PANTOPRAZOLE 40 MG TABLET PO ×2 (11:16→21:06)
[2019-07-02] MEDS: SIMETHICONE 125 MG CHEW TAB PO ×3 (11:16→19:03)
[2019-07-02] MEDS: TOLNAFTATE 1% POWDER 45 GM BTL 1 APPLIC TOPICAL ×2 (11:17→21:06)
[2019-07-02] MEDS: MICONAZOLE NITRATE 2% CREAM 30 GM TUBE 1 APPLIC TOPICAL ×2 (11:17→21:06)
[2019-07-02 12:28] LABS: Glucose Point of Care 110 (65-105)
[2019-07-02 14:00] VITALS: BP 106/78; PULSE 83; RESP 18; TEMP 36.3; O2SAT 94; BMI 47.2
[2019-07-02 17:19] LABS: Glucose Point of Care 127 (65-105)
[2019-07-02 20:00] VITALS: PULSE 60; RESP 20; O2SAT 95
[2019-07-02 20:21] LABS: Glucose Point of Care 141 (65-105)
[2019-07-02 21:06] VITALS: PULSE 60
[2019-07-02 21:56] VITALS: BP 126/70; PULSE 59; RESP 20; TEMP 36.8; O2SAT 95
[2019-07-03] VITALS (8 sets, daily range): BP systolic 132–138; BP diastolic 72–88; PULSE 63–83; RESP 20; TEMP 36.3–36.7; O2SAT 93–95
[2019-07-03 06:52] LABS: Glucose Point of Care 116 (65-105)
[2019-07-03] MEDS: ACETAMINOPHEN 325 MG TABLET 650 MG PO ×3 (08:32→17:31)
[2019-07-03] MEDS: DIGOXIN TAB 125 MCG TABLET PO (08:33)
[2019-07-03] MEDS: APIXABAN 2.5 MG TABLET PO ×2 (08:33→17:32)
[2019-07-03] MEDS: BUMETANIDE 1 MG TABLET PO ×2 (08:33→17:32)
[2019-07-03] MEDS: PANTOPRAZOLE 40 MG TABLET PO ×2 (08:35→20:53)
[2019-07-03] MEDS: METOPROLOL TARTRATE 50 MG TAB PO ×2 (08:35→20:53)
[2019-07-03] MEDS: polyethylene glycoL 3350 17 GM POWD.PACK PO (08:36)
[2019-07-03] MEDS: POTASSIUM CHLORIDE 10 MEQ TABLET.ER 20 MEQ PO ×3 (08:36→17:32)
[2019-07-03] MEDS: SIMETHICONE 125 MG CHEW TAB PO ×3 (08:36→17:32)
[2019-07-03] MEDS: MICONAZOLE NITRATE 2% CREAM 30 GM TUBE 1 APPLIC TOPICAL ×2 (08:37→20:53)
[2019-07-03] MEDS: TOLNAFTATE 1% POWDER 45 GM BTL 1 APPLIC TOPICAL ×2 (08:37→20:53)
[2019-07-03 12:38] LABS: Glucose Point of Care 105 (65-105)
--- NOTE | 2019-07-03 13:40 | WPDNEURORHBP ---
Subjective Date/time seen: 07/03/19 13:40 Interval history: this 69-year-old gentleman is here for critical illness myopathy and crackles neuropathy with generalized weakness he is feeling better however still has the catheter because of inability to urinate and we will start the bladder training and denies any headache nausea vomiting chest pain shortness of breath fever chills or sore throat Review of Systems Review of Systems: All systems reviewed & are unremarkable except as noted in HPI and below Functional Status Ambulation Ability Ability to Ambulate 10 Feet: Minimum Assistance X 1 Ambulation Assistive Devices: Parallel Bars Transfers Ability Ability to Transfer In/Out of Chair: Total Assistance X 1 Exam Const: General: comfortable and no acute distress HENMT: General nose exam: Normal nares present Mouth: Yes moist mucous membranes Eyes: General: appearance normal, both eyes and all related structures Neck: Neck: supple and no JVD Resp: Effort & Inspection: normal respiratory effort Auscultation: clear to auscultation bilaterally Cardio: Rate: regular rate Rhythm: regular rhythm GI: GI Palp: Yes Soft to palpation Auscultation: normal bowel sounds Urinary Catheter: Urinary Catheter: patent and draining Skin: General skin exam: normal color and no rashes or lesions noted Neuro: Other: remains awake alert and well-oriented with normal cranial examination evidence of significant myopathy and neuropathy however better than he was several days ago Extrem: General: normal to inspection Psych: Mental Status: mental status grossly normal Objective Data Vital Signs Vital Signs: Vital Signs - 24 hr 07/02/19 14:00 07/02/19 20:00 07/02/19 21:06 Temperature 36.3 C L Pulse Rate 83 60 60 Respiratory Rate 18 20 Blood Pressure 106/78 Pulse Oximetry 94 95 07/02/19 21:56 07/03/19 06:00 07/03/19 08:33 Temperature 36.8 C 36.3 C L Pulse Rate 59 L 83 83 Respiratory Rate 20 20 Blood Pressure 126/70 132/73 Pulse Oximetry 95 94 07/03/19 08:35 07/03/19 10:35 Temperature Pulse Rate 83 Respiratory Rate Blood Pressure Pulse Oximetry 93 Intake/Output Intake/Output: Intake & Output 06/30/19 07/01/19 07/02/19 07/03/19 23:59 23:59 23:59 23:59 Intake Total 360 1300 240 Output Total 1400 900 Balance 360 100 660 Meds/Results Medications: Active Medications Generic Name Dose Route Start Last Admin Trade Name Freq PRN Reason Stop Dose Admin Acetaminophen 650 mg 07/01/19 17:00 07/03/19 12:39 Tylenol Tablet PO 650 mg TID LAURA Administration Albuterol 2.5 mg 07/01/19 16:11 Albuterol Sulf Neb 2.5mg/0.5ml NEBULIZE Q6H PRN Shortness Of Breath Or Wheezing Apixaban 2.5 mg 07/01/19 17:00 07/03/19 08:33 Eliquis PO 2.5 mg BID LAURA Administration Bumetanide 1 mg 07/01/19 17:00 07/03/19 08:33 Bumex Po PO 1 mg BID [facility] Administration Digoxin 125 mcg 07/02/19 09:00 07/03/19 08:33 Lanoxin Tab PO 125 mcg DAILY [facility] Administration Levofloxacin 750 mg 07/02/19 09:00 07/03/19 08:35 Levaquin Tab PO 07/06/19 09:01 750 mg DAILY [facility] Administration Metoprolol Tartrate 50 mg 07/01/19 21:00 07/03/19 08:35 Lopressor PO 50 mg Q12HR [facility] Administration Miconazole Nitrate 1 applic 07/02/19 10:00 07/03/19 08:37 Miconazole Nitrate 2% Cream TOPICAL 1 applic Q12HR [facility] Administration Non-Formulary Medication 1 cap 07/01/19 17:00 Indacaterol-Glycopyrrolate [Utibron Neohaler] INHALATION 07/31/19 17:01 BID [facility] Ondansetron HCl 4 mg 07/01/19 16:11 Zofran Odt PO Q6H PRN Nausea And Vomiting Pantoprazole Sodium 40 mg 07/01/19 21:00 07/03/19 08:35 Protonix PO 40 mg Q12HR [facility] Administration Polyethylene Glycol 17 gm 07/02/19 09:00 07/03/19 08:36 Miralax PO 17 gm DAILY [facility] Administration Potassium Chloride 20 meq 07/01/19 17:00 07/03/19 12:39 Kcl Tablet PO
[2019-07-03 18:18] LABS: Glucose Point of Care 111 (65-105)
[2019-07-03 20:41] LABS: Glucose Point of Care 116 (65-105)
[2019-07-04 05:44] LABS: Glucose Point of Care 111 (65-105)
[2019-07-04 06:00] VITALS: BP 132/65; PULSE 85; RESP 19; TEMP 36.7; O2SAT 95
[2019-07-04 08:47] VITALS: PULSE 85
[2019-07-04] MEDS: APIXABAN 2.5 MG TABLET PO ×2 (08:47→18:20)
[2019-07-04] MEDS: BUMETANIDE 1 MG TABLET PO ×2 (08:47→18:20)
[2019-07-04] MEDS: ACETAMINOPHEN 325 MG TABLET 650 MG PO ×3 (08:47→18:19)
[2019-07-04] MEDS: DIGOXIN TAB 125 MCG TABLET PO (08:47)
[2019-07-04 08:48] VITALS: PULSE 85
[2019-07-04] MEDS: PANTOPRAZOLE 40 MG TABLET PO ×2 (08:48→20:32)
[2019-07-04] MEDS: SIMETHICONE 125 MG CHEW TAB PO ×3 (08:48→18:21)
[2019-07-04] MEDS: METOPROLOL TARTRATE 50 MG TAB PO ×2 (08:48→20:32)
[2019-07-04] MEDS: POTASSIUM CHLORIDE 10 MEQ TABLET.ER 20 MEQ PO ×3 (08:49→18:20)
[2019-07-04] MEDS: TOLNAFTATE 1% POWDER 45 GM BTL 1 APPLIC TOPICAL ×2 (08:50→20:31)
[2019-07-04] MEDS: MICONAZOLE NITRATE 2% CREAM 30 GM TUBE 1 APPLIC TOPICAL ×2 (08:51→20:32)
--- NOTE | 2019-07-04 10:58 | PCDIET ---
Nutrition Follow-Up Complete: Nutrition Diagnosis: Decreased sodium needs related to CHF as evidenced by EMR. Nutrition Goal: Patient to consume 75% of meals or greater. Goal met. Patient consuming 100% of meals on diabetic diet. Continue to recommend addition of 2000mg sodium diet to present diabetic diet. Last recorded weight is 132.8 kg. Recommend obtaining new weight. Bowel Motility: Last documented BM on 07/03/19. Labs Reviewed: Glu (111) Meds Noted: Albuterol, Bumex, Levaquin, Protonix, Miralax, KCl, Simethicone Additional Notes: Thighs reddened; no open areas documented. Will continue to monitor with same goal. Nutrition Monitoring and Evaluation: Follow up every 7 days.
[2019-07-04 12:59] LABS: Glucose Point of Care 115 (65-105)
--- NOTE | 2019-07-04 13:23 | PCPTNOTE ---
Hans Gaytan was evaluated for a wheeled walker on 07/04/2019 by this physical therapist night assistant. The wheeled walker will resolve patient's mobility limitations and will be used for ADL's within the home. The patient can safely use the wheeled walker. ?The wheeled walker will resolve the patient?s mobility deficits, including decreased strength and endurance.
--- NOTE | 2019-07-04 13:31 | WPDNEURORHBP ---
Subjective Date/time seen: 07/04/19 13:31 Interval history: this 69-year-old gentleman is here with rehab category diagnosis of critical illness myopathy / peripheral neuropathy his doing fairly well and improving in his overall physical status and engage in therapy denies any headache nausea vomiting chest pain shortness of breath fever chills or sore throat Review of Systems Review of Systems: All systems reviewed & are unremarkable except as noted in HPI and below Functional Status Ambulation Ability Ability to Ambulate 10 Feet: Minimum Assistance X 1 Ability to Ambulate 50 Feet With 2 Turns: Minimum Assistance X 1 Ambulation Assistive Devices: Walker, Wheeled Transfers Ability Ability to Transfer In/Out of Chair: Minimum Assistance X 1 Exam Const: General: comfortable and no acute distress HENMT: General nose exam: Normal nares present Mouth: Yes moist mucous membranes Eyes: General: appearance normal, both eyes and all related structures Neck: Neck: supple and no JVD Resp: Effort & Inspection: normal respiratory effort Auscultation: clear to auscultation bilaterally Cardio: Other: rate controlled atrial fibrillation GI: GI Palp: Yes Soft to palpation Auscultation: normal bowel sounds Skin: General skin exam: normal color and no rashes or lesions noted Neuro: Other: patient is awake and alert well oriented time place person has normal speech language function generalized weakness which is improving proximal more than distal with depressed reflexes Extrem: General: normal to inspection Psych: Mental Status: mental status grossly normal Objective Data Vital Signs Vital Signs: Vital Signs - 24 hr 07/04/19 14:00 07/04/19 20:32 07/04/19 22:00 Temperature 36.3 C L 37.4 C Pulse Rate 78 78 69 Respiratory Rate 18 20 Blood Pressure 115/82 127/66 Pulse Oximetry 96 92 07/05/19 06:00 07/05/19 10:09 Temperature 36.9 C Pulse Rate 78 76 Respiratory Rate 20 Blood Pressure 137/84 Pulse Oximetry 94 Intake/Output Intake/Output: Intake & Output 07/02/19 07/03/19 07/04/19 07/05/19 23:59 23:59 23:59 23:59 Intake Total 1300 1620 840 240 Output Total 1400 2000 1999 Balance -100 380 1160 240 Meds/Results Medications: Active Medications Generic Name Dose Route Start Last Admin Trade Name Freq PRN Reason Stop Dose Admin Acetaminophen 650 mg 07/01/19 17:00 07/05/19 12:44 Tylenol Tablet PO 650 mg TID ALURA Administration Albuterol 2.5 mg 07/01/19 16:11 Albuterol Sulf Neb 2.5mg/0.5ml NEBULIZE Q6H PRN Shortness Of Breath Or Wheezing Apixaban 2.5 mg 07/01/19 17:00 07/05/19 10:09 Eliquis PO 2.5 mg BID LAURA Administration Bumetanide 1 mg 07/01/19 17:00 07/05/19 10:09 Bumex Po PO 1 mg BID LAURA Administration Digoxin 125 mcg 07/02/19 09:00 07/05/19 10:09 Lanoxin Tab PO 125 mcg DAILY [facility] Administration Levofloxacin 750 mg 07/02/19 09:00 07/05/19 10:09 Levaquin Tab PO 07/06/19 09:01 750 mg DAILY [facility] Administration Metoprolol Tartrate 50 mg 07/01/19 21:00 07/05/19 10:09 Lopressor PO 50 mg Q12HR [facility] Administration Miconazole Nitrate 1 applic 07/02/19 10:00 07/05/19 10:11 Miconazole Nitrate 2% Cream TOPICAL 1 applic Q12HR [facility] Administration Non-Formulary Medication 1 cap 07/01/19 17:00 Indacaterol-Glycopyrrolate [Utibron Neohaler] INHALATION 07/31/19 17:01 BID [facility] Ondansetron HCl 4 mg 07/01/19 16:11 Zofran Odt PO Q6H PRN Nausea And Vomiting Pantoprazole Sodium 40 mg 07/01/19 21:00 07/05/19 10:10 Protonix PO 40 mg Q12HR [facility] Administration Polyethylene Glycol 17 gm 07/02/19 09:00 07/05/19 10:11 Miralax PO 17 gm DAILY LAURA Administration Potassium Chloride 20 meq 07/01/19 17:00 07/05/19 12:44 Kcl Tablet PO 20 meq TID LAURA Administration Simethicone 125 mg 07/01/19 17:00 07/05/19 12:44 Phazyme PO 125 mg TID LAURA Administration
[2019-07-04 14:00] VITALS: BP 115/82; PULSE 78; RESP 18; TEMP 36.3; O2SAT 96
[2019-07-04 17:18] LABS: Glucose Point of Care 110 (65-105)
[2019-07-04 20:32] VITALS: PULSE 78
[2019-07-04 22:00] VITALS: BP 127/66; PULSE 69; RESP 20; TEMP 37.4; O2SAT 92
[2019-07-05 03:28] LABS: Glucose Point of Care 146 (65-105)
[2019-07-05 06:00] VITALS: BP 137/84; PULSE 78; RESP 20; TEMP 36.9; O2SAT 94
[2019-07-05 06:36] LABS: Glucose Point of Care 105 (65-105)
[2019-07-05 06:58] LABS: Hemoglobin A1C 6.5 % (<5.7)
[2019-07-05] MEDS: ACETAMINOPHEN 325 MG TABLET 650 MG PO ×3 (10:08→18:13)
[2019-07-05 10:09] VITALS: PULSE 76
[2019-07-05] MEDS: DIGOXIN TAB 125 MCG TABLET PO (10:09)
[2019-07-05] MEDS: APIXABAN 2.5 MG TABLET PO ×2 (10:09→18:14)
[2019-07-05] MEDS: METOPROLOL TARTRATE 50 MG TAB PO ×2 (10:09→20:02)
[2019-07-05] MEDS: BUMETANIDE 1 MG TABLET PO ×2 (10:09→18:13)
[2019-07-05] MEDS: PANTOPRAZOLE 40 MG TABLET PO ×2 (10:10→20:03)
[2019-07-05] MEDS: POTASSIUM CHLORIDE 10 MEQ TABLET.ER 20 MEQ PO ×3 (10:10→18:14)
[2019-07-05] MEDS: MICONAZOLE NITRATE 2% CREAM 30 GM TUBE 1 APPLIC TOPICAL ×2 (10:11→20:02)
[2019-07-05] MEDS: SIMETHICONE 125 MG CHEW TAB PO ×3 (10:11→18:14)
[2019-07-05] MEDS: polyethylene glycoL 3350 17 GM POWD.PACK PO (10:11)
[2019-07-05] MEDS: TOLNAFTATE 1% POWDER 45 GM BTL 1 APPLIC TOPICAL ×2 (10:11→20:02)
--- NOTE | 2019-07-05 11:00 | RPD ---
INDIVIDUALIZED PLAN OF CARE FOR Hans Gaytan Brief Synthesis of Pre-Admission Screen, Post-Admission Evaluation and Therapy Evaluations: Evaluation and IPOC reviewed and completed on 07/04/2019 10:00AM. The patient presents to rehab with Critical illness myopathy. Comorbidities include cardiac arrest with NSTEMI, acute respiratory failure with hypoxia, congestive heart failure, generalized anasarca, osteomyelitis right foot, chronic kidney disease with acute renal failure, atrial fibrillation, morbid obesity, diabetes mellitus type 2, hypokalemia, low magnesium, upper abdominal pain. urinary retention, gastroesophageal reflux disease, upper extremity DVT. The patient requires physician services for medical oversight, management of complications in setting of present comorbidities, and pain management. His hospitalization has been significant for urinary retention with replacement of a Mccarty catheter, hypotension, hyponatremia, leukocytosis, anemia, respiratory insufficiency, upper abdominal pain, ileus, acute kidney injury, anasarca, electrolyte imbalances, acute on chronic renal failure, osteomyelitis of the right foot, atrial fibrillation, upper extremity DVT, and diabetes mellitus.The patient requires nursing services for anticoagulation therapy, diabetes training, DVT prophylactics, infection protection, medication management and education, pressure relief, and wound care. Deficits include:ADLs, Balance, Endurance, Family Training/Education, Mobility, Pain Management, ROM, Safety, Strength,Transfers Wind Energy Mechanic/Case Management for: Discharge Planning and Patient/Family Counseling Physical Therapy: 5 days per week for 90 minutes. Treatments may include: Therapeutic Exercise, Gait Training, Neuromuscular Re-education, Transfer Training, Community Reintegration, Bed Mobility, Patient/Family Education, Wheelchair Mobility Group Therapy/Concurrent Therapy Rationales: -Improve attention span during functional activities in a distracted environment. -Enhance problem solving and/or adequate judgment skills during functional activities in a distracted environment. -Promote increased safety awareness in a distracted environment to reduce fall risk with functional tasks, transfers, and ambulation to allow a more safe, self-sufficient return to the home environment. -Improve dynamic balance skills to promote safety and independence with functional activities in a distracted environment for maximum gain. Occupational Therapy: 5 days per week for 90 minutes. Treatments may include: Therapeutic Exercise, Therapeutic Activity, Cognitive Training, Self-Care Transfer Training, Community Reintegration, Home Management, Patient/Family Education, Wheelchair Mobility Training, Energy Conservation Training Group Therapy/Concurrent Therapy Rationales: -Allow therapist to observe and teach generalization and carry-over of skills learned in individual therapy. -Enhance problem solving and sequencing skills during therapeutic activities in a distracted environment. -Promote increased safety awareness in a realistic setting to reduce fall risk with functional tasks due to visual and verbal distractions. -Increase functional level with ADLs, ADL transfers and use of adaptive equipment through therapeutic activities with others while promoting safety to allow a more safe, self-sufficient return home. Medical Prognosis: Good Anticipated Length of Stay: 12 days Rehab Goals: Eating Goal: 06-Independent Oral Hygiene Goal: 06-Independent Toileting Hygiene Goal: 03-Partial/Moderate Assistance Shower/Bathe Self Goal: 03-Partial/Moderate Assistance Upper Body Dressing Goal: 05-Setup or Clean Up Assistance Lower Body Dressing Goal: 03-Partial/Moderate Assistance Putting On/Taking Off Footwear Goal: 04-Supervision or Touching Assistance Rolling Left and Right Goal: 06-Independent Sit to Lying Goal: 06-Independent Lying to Sitting on Side of Bed Goal: 06-Independent Sit to Stand G
[2019-07-05 14:00] VITALS: BP 137/82; PULSE 82; RESP 18; TEMP 36.1; O2SAT 96
--- NOTE | 2019-07-05 16:01 | WPDNEURORHBP ---
Subjective Date/time seen: 07/05/19 16:01 Interval history: this 69-year-old gentleman is here for critical illness myopathy /critical illness neuropathy doing much better today he was able to walk 40 feet which is remarkable denies any headache nausea vomiting chest pain shortness of breath fever chills sore throat Review of Systems Review of Systems: All systems reviewed & are unremarkable except as noted in HPI and below Functional Status Ambulation Ability Ability to Ambulate 10 Feet: Minimum Assistance X 1 Ability to Ambulate 50 Feet With 2 Turns: Minimum Assistance X 1 Ambulation Assistive Devices: Walker, Wheeled Transfers Ability Ability to Transfer In/Out of Chair: Minimum Assistance X 1 Exam Const: General: comfortable and no acute distress HENMT: General nose exam: Normal nares present Mouth: Yes moist mucous membranes Eyes: General: appearance normal, both eyes and all related structures Neck: Neck: supple and no JVD Resp: Effort & Inspection: normal respiratory effort Auscultation: clear to auscultation bilaterally Cardio: Rate: regular rate Rhythm: regular rhythm GI: GI Palp: Yes Soft to palpation Auscultation: normal bowel sounds Urinary Catheter: Urinary Catheter: patent and draining Skin: General skin exam: normal color and no rashes or lesions noted Neuro: Other: patient's generalized weakness is improving overall neurological status continues to Extrem: General: normal to inspection and normal exam except as noted Psych: Mental Status: mental status grossly normal Objective Data Vital Signs Vital Signs: Vital Signs - 24 hr 07/04/19 20:32 07/04/19 22:00 07/05/19 06:00 Temperature 37.4 C 36.9 C Pulse Rate 78 69 78 Respiratory Rate 20 20 Blood Pressure 127/66 137/84 Pulse Oximetry 92 94 07/05/19 10:09 Temperature Pulse Rate 76 Respiratory Rate Blood Pressure Pulse Oximetry Intake/Output Intake/Output: Intake & Output 07/02/19 07/03/19 07/04/19 07/05/19 23:59 23:59 23:59 23:59 Intake Total 1300 1620 840 480 Output Total 1400 2000 1999 Balance -100 -264 -1160 480 Meds/Results Medications: Active Medications Generic Name Dose Route Start Last Admin Trade Name Freq PRN Reason Stop Dose Admin Acetaminophen 650 mg 07/01/19 17:00 07/05/19 12:44 Tylenol Tablet PO 650 mg TID LAURA Administration Albuterol 2.5 mg 07/01/19 16:11 Albuterol Sulf Neb 2.5mg/0.5ml NEBULIZE Q6H PRN Shortness Of Breath Or Wheezing Apixaban 2.5 mg 07/01/19 17:00 07/05/19 10:09 Eliquis PO 2.5 mg BID LAURA Administration Bumetanide 1 mg 07/01/19 17:00 07/05/19 10:09 Bumex Po PO 1 mg BID LAURA Administration Digoxin 125 mcg 07/02/19 09:00 07/05/19 10:09 Lanoxin Tab PO 125 mcg DAILY [facility] Administration Levofloxacin 750 mg 07/02/19 09:00 07/05/19 10:09 Levaquin Tab PO 07/06/19 09:01 750 mg DAILY [facility] Administration Metoprolol Tartrate 50 mg 07/01/19 21:00 07/05/19 10:09 Lopressor PO 50 mg Q12HR [facility] Administration Miconazole Nitrate 1 applic 07/02/19 10:00 07/05/19 10:11 Miconazole Nitrate 2% Cream TOPICAL 1 applic Q12HR [facility] Administration Non-Formulary Medication 1 cap 07/01/19 17:00 Indacaterol-Glycopyrrolate [Utibron Neohaler] INHALATION 07/31/19 17:01 BID [facility] Ondansetron HCl 4 mg 07/01/19 16:11 Zofran Odt PO Q6H PRN Nausea And Vomiting Pantoprazole Sodium 40 mg 07/01/19 21:00 07/05/19 10:10 Protonix PO 40 mg Q12HR [facility] Administration Polyethylene Glycol 17 gm 07/02/19 09:00 07/05/19 10:11 Miralax PO 17 gm DAILY [facility] Administration Potassium Chloride 20 meq 07/01/19 17:00 07/05/19 12:44 Kcl Tablet PO 20 meq TID [facility] Administration Simethicone 125 mg 07/01/19 17:00 07/05/19 12:44 Phazyme PO 125 mg TID [facility] Administration Tolnaftate 1 applic 07/02/19 10:00 07/05/19 10:11 Tolnaftate 1% Powder TOPICAL 1 denzel
[2019-07-05 20:02] VITALS: PULSE 82
[2019-07-05 20:14] LABS: Glucose Point of Care 120 (65-105)
[2019-07-05 20:54] VITALS: PULSE 81; RESP 18; O2SAT 92
[2019-07-05 22:00] VITALS: BP 140/93; PULSE 75; RESP 18; TEMP 36.6; O2SAT 94
[2019-07-06 06:00] VITALS: BP 137/91; PULSE 65; RESP 20; TEMP 36.5; O2SAT 93
[2019-07-06 06:50] LABS: Glucose Point of Care 100 (65-105)
[2019-07-06] MEDS: POTASSIUM CHLORIDE 10 MEQ TABLET.ER 20 MEQ PO ×3 (08:41→16:56)
[2019-07-06] MEDS: ACETAMINOPHEN 325 MG TABLET 650 MG PO ×3 (08:41→16:56)
[2019-07-06 08:42] VITALS: PULSE 60
[2019-07-06] MEDS: METOPROLOL TARTRATE 50 MG TAB PO ×2 (08:42→20:17)
[2019-07-06 08:43] VITALS: PULSE 60
[2019-07-06] MEDS: SIMETHICONE 125 MG CHEW TAB PO ×3 (08:43→16:58)
[2019-07-06] MEDS: DIGOXIN TAB 125 MCG TABLET PO (08:43)
[2019-07-06] MEDS: BUMETANIDE 1 MG TABLET PO ×2 (08:43→16:58)
[2019-07-06] MEDS: PANTOPRAZOLE 40 MG TABLET PO ×2 (08:43→20:17)
[2019-07-06] MEDS: TOLNAFTATE 1% POWDER 45 GM BTL 1 APPLIC TOPICAL ×2 (08:44→20:16)
[2019-07-06] MEDS: MICONAZOLE NITRATE 2% CREAM 30 GM TUBE 1 APPLIC TOPICAL ×2 (08:44→20:16)
[2019-07-06] MEDS: APIXABAN 2.5 MG TABLET PO ×2 (08:44→16:58)
[2019-07-06] MEDS: polyethylene glycoL 3350 17 GM POWD.PACK PO (08:44)
[2019-07-06 11:23] LABS: Glucose Point of Care 95 (65-105)
--- NOTE | 2019-07-06 12:06 | WPDNEURORHBP ---
Subjective Date/time seen: With CIRM andNeuropathy able to delphine longer [id number]/23/20 12:06 Review of Systems Review of Systems: All systems reviewed & are unremarkable except as noted in HPI and below Functional Status Ambulation Ability Ability to Ambulate 10 Feet: Minimum Assistance X 1 Ability to Ambulate 50 Feet With 2 Turns: Minimum Assistance X 1 Ambulation Assistive Devices: Walker, Wheeled Transfers Ability Ability to Transfer In/Out of Chair: Minimum Assistance X 1 Exam Const: General: cooperative, healthy appearing, comfortable and no acute distress Nutritional Appearance: average body habitus Limitations: no limitations HENMT: Head: normal to inspection General nose exam: No nasal discharge present Mouth: Yes Normal oral and palatal mucosa present Eyes: General: appearance normal, both eyes and all related structures Neck: Neck: full ROM Resp: Effort & Inspection: normal respiratory effort Auscultation: clear to auscultation bilaterally Cardio: Rate: regular rate Rhythm: regular rhythm GI: Auscultation: normal bowel sounds Neuro: General: patient oriented x3, tone normal and moves all extremities Cranial nerves: Yes CN's II-XII intact bilaterally, Yes Equal, round and reactive pupils present, Yes Nystagmus not present, Yes facial symmetry, Yes Midline tongue present, Yes Normal hearing present, Yes Ability to bilaterally rotate head present and Yes Ability to bilaterally elevate shoulders present Cognition (Neuro): normal cognition Speech: normal speech Gait exam (Neuro): Wide-based gait present Motor exam (neuro): 5/5 motor strength present throughout (improving) and Motor abnormalities not present Sensory Exam: Sensory deficit (Neuro) Deep tendon reflexes (DTR's): Right triceps reflex intensity grade: 0, Left triceps reflex intensity grade: 0, Rt Biceps (C5, C6): 0, Left biceps reflex intensity grade: 0, Right brachioradialis reflex intensity grade: 0, Left brachioradialis reflex intensity grade: 0, Right patellar reflex intensity grade: 0, Left patellar reflex intensity grade: 0, Right ankle reflex intensity grade: 0 and Left ankle reflex intensity grade: 0 Plantar Reflex Responses: downgoing: bilateral Extrem: General: normal to inspection Psych: Appearance: grossly normal Objective Data Vital Signs Vital Signs: Vital Signs - 24 hr 07/05/19 14:00 07/05/19 20:02 07/05/19 20:54 Temperature 36.1 C L Pulse Rate 82 82 81 Respiratory Rate 18 18 Blood Pressure 137/82 Pulse Oximetry 96 92 07/05/19 22:00 07/06/19 06:00 07/06/19 08:42 Temperature 36.6 C 36.5 C Pulse Rate 75 65 60 Respiratory Rate 18 20 Blood Pressure 140/93 H 137/91 H Pulse Oximetry 94 93 07/06/19 08:43 Temperature Pulse Rate 60 Respiratory Rate Blood Pressure Pulse Oximetry Intake/Output Intake/Output: Intake & Output 07/03/19 07/04/19 07/05/19 07/06/19 23:59 23:59 23:59 23:59 Intake Total 3307 763 6657 240 Output Total 1999 1999 531 0170 Xvgwzjt -117 -1052 335 -803 Meds/Results Medications: Active Medications Generic Name Dose Route Start Last Admin Trade Name Freq PRN Reason Stop Dose Admin Acetaminophen 650 mg 07/01/19 17:00 07/06/19 08:41 Tylenol Tablet PO 650 mg TID LAURA Administration Albuterol 2.5 mg 07/01/19 16:11 Albuterol Sulf Neb 2.5mg/0.5ml NEBULIZE Q6H PRN Shortness Of Breath Or Wheezing Apixaban 2.5 mg 07/01/19 17:00 07/06/19 08:44 Eliquis PO 2.5 mg BID [facility] Administration Bumetanide 1 mg 07/01/19 17:00 07/06/19 08:43 Bumex Po PO 1 mg BID [facility] Administration Digoxin 125 mcg 07/02/19 09:00 07/06/19 08:43 Lanoxin Tab PO 125 mcg DAILY [facility] Administration Metoprolol Tartrate 50 mg 07/01/19 21:00 07/06/19 08:42 Lopressor PO 50 mg Q12HR [facility] Administration Miconazole Nitrate 1 applic 07/02/19 10:00 07/06/19 08:44 Miconazole Nitrate 2% Cream TOPICAL 1 applic Q12HR [facility] Administration
[2019-07-06 14:00] VITALS: BP 113/74; PULSE 86; RESP 18; TEMP 36.6; O2SAT 96
[2019-07-06 16:35] LABS: Glucose Point of Care 98 (65-105)
[2019-07-06 20:17] VITALS: PULSE 88
[2019-07-06 20:48] LABS: Glucose Point of Care 146 (65-105)
[2019-07-06 21:34] VITALS: BP 112/49; PULSE 77; RESP 20; TEMP 36.6; O2SAT 94
[2019-07-07 06:00] VITALS: BP 153/80; PULSE 77; RESP 20; TEMP 36.4; O2SAT 93
[2019-07-07 06:59] LABS: Glucose Point of Care 101 (65-105)
[2019-07-07] MEDS: ACETAMINOPHEN 325 MG TABLET 650 MG PO ×3 (08:55→17:08)
[2019-07-07] MEDS: POTASSIUM CHLORIDE 10 MEQ TABLET.ER 20 MEQ PO ×3 (08:55→17:09)
[2019-07-07] MEDS: polyethylene glycoL 3350 17 GM POWD.PACK PO (08:55)
[2019-07-07 08:56] VITALS: PULSE 68
[2019-07-07] MEDS: METOPROLOL TARTRATE 50 MG TAB PO ×2 (08:56→19:57)
[2019-07-07] MEDS: BUMETANIDE 1 MG TABLET PO ×2 (08:56→17:09)
[2019-07-07] MEDS: PANTOPRAZOLE 40 MG TABLET PO ×2 (08:56→19:54)
[2019-07-07] MEDS: SIMETHICONE 125 MG CHEW TAB PO ×3 (08:56→17:09)
[2019-07-07] MEDS: APIXABAN 2.5 MG TABLET PO ×2 (08:56→17:08)
[2019-07-07 08:57] VITALS: PULSE 68
[2019-07-07] MEDS: DIGOXIN TAB 125 MCG TABLET PO (08:57)
[2019-07-07] MEDS: MICONAZOLE NITRATE 2% CREAM 30 GM TUBE 1 APPLIC TOPICAL ×2 (08:57→19:55)
[2019-07-07] MEDS: TOLNAFTATE 1% POWDER 45 GM BTL 1 APPLIC TOPICAL ×2 (08:57→19:54)
[2019-07-07 11:42] LABS: Glucose Point of Care 108 (65-105)
[2019-07-07 14:00] VITALS: BP 122/91; PULSE 78; RESP 18; TEMP 36.7; O2SAT 96
[2019-07-07 17:06] LABS: Glucose Point of Care 111 (65-105)
[2019-07-07 19:57] VITALS: PULSE 64
[2019-07-07 21:28] VITALS: BP 111/58; PULSE 71; RESP 18; TEMP 36.6; O2SAT 96
[2019-07-07 21:42] LABS: Glucose Point of Care 114 (65-105)
[2019-07-08 06:00] VITALS: BP 115/64; PULSE 70; RESP 18; TEMP 36.3; O2SAT 95
[2019-07-08 06:48] LABS: Glucose Point of Care 109 (65-105)
[2019-07-08 08:00] VITALS: BP 114/71; PULSE 89
[2019-07-08] MEDS: ACETAMINOPHEN 325 MG TABLET 650 MG PO ×3 (08:02→17:00)
[2019-07-08] MEDS: BUMETANIDE 1 MG TABLET PO ×2 (08:02→17:01)
[2019-07-08] MEDS: APIXABAN 2.5 MG TABLET PO ×2 (08:02→17:01)
[2019-07-08] MEDS: DIGOXIN TAB 125 MCG TABLET PO (08:03)
[2019-07-08] MEDS: polyethylene glycoL 3350 17 GM POWD.PACK PO (08:03)
[2019-07-08] MEDS: TOLNAFTATE 1% POWDER 45 GM BTL 1 APPLIC TOPICAL ×2 (08:03→20:16)
[2019-07-08] MEDS: METOPROLOL TARTRATE 50 MG TAB PO ×2 (08:03→20:15)
[2019-07-08] MEDS: MICONAZOLE NITRATE 2% CREAM 30 GM TUBE 1 APPLIC TOPICAL ×2 (08:03→20:16)
[2019-07-08] MEDS: POTASSIUM CHLORIDE 10 MEQ TABLET.ER 20 MEQ PO ×3 (08:04→17:01)
[2019-07-08] MEDS: PANTOPRAZOLE 40 MG TABLET PO ×2 (08:04→20:15)
[2019-07-08] MEDS: SIMETHICONE 125 MG CHEW TAB PO ×3 (08:04→17:01)
[2019-07-08 14:00] VITALS: BP 97/65; PULSE 74; RESP 18; TEMP 36.8; O2SAT 99
--- NOTE | 2019-07-08 16:12 | WPDNEURORHBP ---
Subjective Date/time seen: Chronic Intensivecare related neuropathy and [id number]/25/20 16:12 Review of Systems Review of Systems: All systems reviewed & are unremarkable except as noted in HPI and below Functional Status Ambulation Ability Ability to Ambulate 10 Feet: Minimum Assistance X 1 Ability to Ambulate 50 Feet With 2 Turns: Minimum Assistance X 1 Ambulation Assistive Devices: Walker, Wheeled Transfers Ability Ability to Transfer In/Out of Chair: Minimum Assistance X 1 Exam Const: General: cooperative, comfortable, no acute distress, alert and awake HENMT: Head: normal to inspection Eyes: General: appearance normal, both eyes and all related structures Neck: Neck: full ROM and no lymphadenopathy Chest: Chest palpation & inspection: normal inspection of the chest Resp: Effort & Inspection: normal respiratory effort and able to speak in complete sentences Auscultation: clear to auscultation bilaterally Cardio: Rate: regular rate Rhythm: regular rhythm GI: Auscultation: normal bowel sounds Skin: General skin exam: no rashes or lesions noted Neuro: General: patient oriented x3 and moves all extremities Cranial nerves: Yes CN's II-XII intact bilaterally, Yes Equal, round and reactive pupils present, Yes Bilaterally intact EOM present, Yes Nystagmus not present, Yes Normal facial strength present, Yes Midline tongue present, Yes Symmetric palate elevation present, Yes Ability to bilaterally rotate head present and Yes Ability to bilaterally elevate shoulders present Cognition (Neuro): normal cognition Speech: normal speech Motor exam (neuro): 5/5 motor strength present throughout (decreased distally with sluggish dtr) Sensory Exam: Sensory deficit (Neuro) Extrem: General: normal to inspection Psych: Appearance: grossly normal Objective Data Vital Signs Vital Signs: Vital Signs - 24 hr 07/07/19 19:57 07/07/19 21:28 07/08/19 06:00 Temperature 36.6 C 36.3 C L Pulse Rate 64 71 70 Respiratory Rate 18 18 Blood Pressure 111/58 L 115/64 Pulse Oximetry 96 95 07/08/19 08:00 07/08/19 14:00 Temperature 36.8 C Pulse Rate 89 74 Respiratory Rate 18 Blood Pressure 114/71 97/65 L Pulse Oximetry 99 Intake/Output Intake/Output: Intake & Output 07/05/19 07/06/19 07/07/19 07/08/19 23:59 23:59 23:59 23:59 Intake Total 1520 560 760 480 Output Total 399 1850 700 850 Balance 570 -1290 60 -370 Meds/Results Medications: Active Medications Generic Name Dose Route Start Last Admin Trade Name Freq PRN Reason Stop Dose Admin Acetaminophen 650 mg 07/01/19 17:00 07/08/19 12:05 Tylenol Tablet PO 650 mg TID LAURA Administration Albuterol 2.5 mg 07/01/19 16:11 Albuterol Sulf Neb 2.5mg/0.5ml NEBULIZE Q6H PRN Shortness Of Breath Or Wheezing Apixaban 2.5 mg 07/01/19 17:00 07/08/19 08:02 Eliquis PO 2.5 mg BID [facility]URA Administration Bumetanide 1 mg 07/01/19 17:00 07/08/19 08:02 Bumex Po PO 1 mg BID [facility] Administration Digoxin 125 mcg 07/02/19 09:00 07/08/19 08:03 Lanoxin Tab PO 125 mcg DAILY [facility] Administration Metoprolol Tartrate 50 mg 07/01/19 21:00 07/08/19 08:03 Lopressor PO 50 mg Q12HR [facility] Administration Miconazole Nitrate 1 applic 07/02/19 10:00 07/08/19 08:03 Miconazole Nitrate 2% Cream TOPICAL 1 applic Q12HR [facility] Administration Non-Formulary Medication 1 cap 07/01/19 17:00 Indacaterol-Glycopyrrolate [Utibron Neohaler] INHALATION 07/31/19 17:01 BID [facility] Ondansetron HCl 4 mg 07/01/19 16:11 Zofran Odt PO Q6H PRN Nausea And Vomiting Pantoprazole Sodium 40 mg 07/01/19 21:00 07/08/19 08:04 Protonix PO 40 mg Q12HR [facility] Administration Polyethylene Glycol 17 gm 07/02/19 09:00 07/08/19 08:03 Miralax PO 17 gm DAILY [facility] Administration Potassium Chloride 20 meq 07/01/19 17:00 07/08/19 12:06 Kcl Tablet PO 20 meq TID [facility] Administration Simethicone 125 mg 06/13
[2019-07-08 17:40] LABS: Glucose Point of Care 121 (65-105)
[2019-07-08 20:15] VITALS: PULSE 74
[2019-07-08 20:54] VITALS: PULSE 87; RESP 15; O2SAT 94
[2019-07-08 22:00] VITALS: BP 110/81; PULSE 74; RESP 20; TEMP 36.8; O2SAT 96
[2019-07-09] VITALS (9 sets, daily range): BP systolic 111–130; BP diastolic 75–97; PULSE 70–92; RESP 14–20; TEMP 36.5–36.7; O2SAT 90–99
[2019-07-09 04:46] LABS: Basophils Absolute Auto 0.1 K/mm3 (0.0-0.1); Basophils Percent Auto 0.6 % (0.2-1.2); Eosinophils Absolute Auto 0.2 K/mm3 (0-0.3); Hematocrit 40.8 % (42.0-52.0); Immature Granulocyte Absolute 0.19 K/mm3 (0.00-0.031); Lymphocytes Absolute Auto 1.84 K/mm3 (0.9-3.2); Lymphocytes Percent Auto 19.4 % (18.3-44.2); Mean Corpuscular HGB Conc 31.9 g/dl (32-36); Mean Corpuscular Hemoglobin 30.2 pg (26-34); Mean Corpuscular Volume 94.9 fl (80-100); Monocytes Absolute Auto 0.8 K/mm3 (0.1-0.6); Monocytes Percent Auto 8.3 % (2.6-8.5); Neutrophils Absolute Auto 6.4 K/mm3 (1.3-6.7); Neutrophils Percent Auto 67.7 % (45.5-73.1); Platelet Count Result 172 k/mm3 (150-375); Red Cell Distribution Width 15.9 % (11.5-14.5); White Blood Count 9.5 K/mm3 (4.5-10.0)
[2019-07-09 05:02] LABS: Blood Urea Nitrogen 27 mg/dL (9-20); Calcium 9.2 mg/dL (8.4-10.2); Carbon Dioxide 36 mmol/L (22-30); Chloride 96 mmol/L (98-107); Estimated CRCL calculation 61 ml/min; Estimated Glomerular Filt Rate 55; Glucose 108 mg/dL (75-110); Potassium 4.4 mmol/L (3.4-5.0); Sodium 134 mmol/L (137-145)
[2019-07-09] MEDS: ACETAMINOPHEN 325 MG TABLET 650 MG PO ×3 (07:46→17:53)
[2019-07-09] MEDS: SIMETHICONE 125 MG CHEW TAB PO ×3 (07:46→17:54)
[2019-07-09] MEDS: METOPROLOL TARTRATE 50 MG TAB PO ×2 (07:47→20:08)
[2019-07-09] MEDS: BUMETANIDE 1 MG TABLET PO ×2 (07:47→17:54)
[2019-07-09] MEDS: DIGOXIN TAB 125 MCG TABLET PO (07:47)
[2019-07-09] MEDS: APIXABAN 2.5 MG TABLET PO ×2 (07:47→17:53)
[2019-07-09] MEDS: polyethylene glycoL 3350 17 GM POWD.PACK PO (07:48)
[2019-07-09] MEDS: TOLNAFTATE 1% POWDER 45 GM BTL 1 APPLIC TOPICAL ×2 (07:48→20:08)
[2019-07-09] MEDS: POTASSIUM CHLORIDE 10 MEQ TABLET.ER 20 MEQ PO ×3 (07:48→17:54)
[2019-07-09] MEDS: PANTOPRAZOLE 40 MG TABLET PO ×2 (07:48→20:08)
[2019-07-09] MEDS: MICONAZOLE NITRATE 2% CREAM 30 GM TUBE 1 APPLIC TOPICAL ×2 (07:48→20:08)
--- NOTE | 2019-07-09 13:34 | WPDNEURORHBP ---
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 his doing fairly would well and walking about 60 feet is still has a Mccarty catheter has had multiple bladder training however it failed but hoping that the will be able to take the Mccarty catheter out soon otherwise he will be trained how to deal with it when he goes home denies any headache nausea vomiting chest pain shortness of breath fever chills sore throat Review of Systems Review of Systems: All systems reviewed & are unremarkable except as noted in HPI and below Functional Status Ambulation Ability Ability to Ambulate 10 Feet: Minimum Assistance X 1 Ability to Ambulate 50 Feet With 2 Turns: Minimum Assistance X 1 Ambulation Assistive Devices: Walker, Wheeled Transfers Ability Ability to Transfer In/Out of Chair: Minimum Assistance X 1 Exam Const: General: comfortable, no acute distress and in distress HENMT: General nose exam: Normal nares present Mouth: Yes moist mucous membranes Eyes: General: appearance normal, both eyes and all related structures Neck: Neck: supple and no JVD Resp: Effort & Inspection: normal respiratory effort Auscultation: clear to auscultation bilaterally Cardio: Rate: regular rate Rhythm: regular rhythm GI: GI Palp: Yes Soft to palpation Auscultation: normal bowel sounds Urinary Catheter: Urinary Catheter: patent and draining Skin: General skin exam: normal color and no rashes or lesions noted Neuro: Other: patient remains awake and alert well oriented time place and person has normal speech and language functions normal cranial nerve examination his strength is improving he is able to walk up to 60 feet Extrem: General: normal to inspection Psych: Mental Status: mental status grossly normal Objective Data Vital Signs Vital Signs: Vital Signs - 24 hr 07/08/19 14:00 07/08/19 20:15 07/08/19 20:54 Temperature 36.8 C Pulse Rate 74 74 87 Respiratory Rate 18 15 Blood Pressure 97/65 L Pulse Oximetry 99 94 07/08/19 22:00 07/09/19 02:05 07/09/19 06:00 Temperature 36.8 C 36.5 C Pulse Rate 74 71 70 Respiratory Rate 20 14 20 Blood Pressure 110/81 122/80 Pulse Oximetry 96 94 90 07/09/19 07:47 Temperature Pulse Rate 70 Respiratory Rate Blood Pressure Pulse Oximetry Intake/Output Intake/Output: Intake & Output 07/06/19 07/07/19 07/08/19 07/09/19 23:59 23:59 23:59 23:59 Intake Total 560 760 720 480 Output Total 2909 050 4524 Balance -1290 60 -430 480 Meds/Results Medications: Active Medications Generic Name Dose Route Start Last Admin Trade Name Freq PRN Reason Stop Dose Admin Acetaminophen 650 mg 07/01/19 17:00 07/09/19 12:33 Tylenol Tablet PO 650 mg TID LAURA Administration Albuterol 2.5 mg 07/01/19 16:11 Albuterol Sulf Neb 2.5mg/0.5ml NEBULIZE Q6H PRN Shortness Of Breath Or Wheezing Apixaban 2.5 mg 07/01/19 17:00 07/09/19 07:47 Eliquis PO 2.5 mg BID [facility]URA Administration Bumetanide 1 mg 07/01/19 17:00 07/09/19 07:47 Bumex Po PO 1 mg BID [facility] Administration Digoxin 125 mcg 07/02/19 09:00 07/09/19 07:47 Lanoxin Tab PO 125 mcg DAILY [facility] Administration Metoprolol Tartrate 50 mg 07/01/19 21:00 07/09/19 07:47 Lopressor PO 50 mg Q12HR [facility] Administration Miconazole Nitrate 1 applic 07/02/19 10:00 07/09/19 07:48 Miconazole Nitrate 2% Cream TOPICAL 1 applic Q12HR [facility] Administration Ondansetron HCl 4 mg 07/01/19 16:11 Zofran Odt PO Q6H PRN Nausea And Vomiting Pantoprazole Sodium 40 mg 07/01/19 21:00 07/09/19 07:48 Protonix PO 40 mg Q12HR [facility] Administration Polyethylene Glycol 17 gm 07/02/19 09:00 07/09/19 07:48 Miralax PO 17 gm DAILY [facility] Administration Potassium Chloride 20 meq 05
[2019-07-09] MEDS: SALMETEROL XINAFOATE 50 MCG DISKUS 1 PUFF INHALATION (20:00)
[2019-07-10] VITALS (11 sets, daily range): BP systolic 110–128; BP diastolic 45–74; PULSE 77–94; RESP 12–20; TEMP 36.1–36.7; O2SAT 93–98
--- NOTE | 2019-07-10 07:55 | PCPTNOTE ---
Addendum entered by Aleksandra Morrow PTA 07/10/19 13:06: Due to patient's anatomical hip with of 24 inches its recommended patient receive 26 inch width heavy duty wheelchair. Original Note: Aleksandra Morrow PTA completed an inpatient rehab wheelchair evaluation on Hans Gaytan on 07/10/2019. The patient is unable to safely and independently ambulate household distances due to their current impairments. Their diagnosis is Critical Illness Myopathy and their impairments include decreased strength, decreased endurance, decreased range of motion, decreased balance and lower extremity weakness.. Hans's weight bearing status is weight-bearing as tolerated on the bilateral lower legs. The patient demonstrates significant functional mobility limitations that impair their ability to participate in mobility-related activities of daily living (MRADLs), including toileting, feeding, dressing, grooming, and bathing in the customary locations in the home. These limitations cannot be sufficiently resolved by the use of an appropriately fitted cane or walker. It is recommended that the patient utilize a wheelchair for functional mobility within the home in order to facilitate optimal safety, independence and participation in all MRADL's and adequately access their home environment on a regular basis. The patient's home provides adequate access between rooms, maneuvering space, and surfaces to accommodate the recommended wheelchair. The use of a wheelchair for functional mobility is strongly recommended and the patient is receptive to using the wheelchair. The use of this wheelchair will significantly improve the patient's ability to participate in MRADLS and the patient will use it on a regular basis in the home. This will facilitate optimal safety, independence, and participation. The patient has demonstrated sufficient physical and mental capabilities needed to safely propel a manual wheelchair that is provided in the home during a typical day. Recommended Wheelchair Frame: heavy duty (patient's weight is 278lbs) Recommended Wheelchair Size: 26 wide x 18 deep x 16 height Recommended Wheelchair Cushion: standard Wheelchair Leg Recommendations: bilateral elevating - A heavy duty wheelchair is recommended because the patient weighs more than 250 pounds. - Elevating leg rests are recommended because the patient has significant edema of the lower extremities that requires an elevating legrest. - Anti-tippers are recommended due to patient demonstrating increased risk for falls. They would benefit from anti-tippers with added safety and stabilization. Aleksandra Morrow INFORMATION SECURITY SYSTEMS INSTRUCTOR 07/10/2019 Evaluating Therapist Date I agree with and certify that the above recommendation is medically necessary. Referring Physician Date I agree with and certify that the above recommendation is medically necessary. Referring Physician Date
[2019-07-10] MEDS: POTASSIUM CHLORIDE 10 MEQ TABLET.ER 20 MEQ PO ×3 (09:02→18:09)
[2019-07-10] MEDS: ACETAMINOPHEN 325 MG TABLET 650 MG PO ×3 (09:02→18:08)
[2019-07-10] MEDS: polyethylene glycoL 3350 17 GM POWD.PACK PO (09:02)
[2019-07-10] MEDS: PANTOPRAZOLE 40 MG TABLET PO ×2 (09:02→20:28)
[2019-07-10] MEDS: SIMETHICONE 125 MG CHEW TAB PO ×3 (09:02→18:09)
[2019-07-10] MEDS: APIXABAN 2.5 MG TABLET PO ×2 (09:03→18:09)
[2019-07-10] MEDS: METOPROLOL TARTRATE 50 MG TAB PO ×2 (09:03→20:28)
[2019-07-10] MEDS: MICONAZOLE NITRATE 2% CREAM 30 GM TUBE 1 APPLIC TOPICAL ×2 (09:04→20:29)
[2019-07-10] MEDS: DIGOXIN TAB 125 MCG TABLET PO (09:04)
[2019-07-10] MEDS: TOLNAFTATE 1% POWDER 45 GM BTL 1 APPLIC TOPICAL ×2 (09:04→20:29)
[2019-07-10] MEDS: BUMETANIDE 1 MG TABLET PO ×2 (09:04→18:09)
[2019-07-10] MEDS: SALMETEROL XINAFOATE 50 MCG DISKUS 1 PUFF INHALATION ×3 (09:17→19:40)
--- NOTE | 2019-07-10 12:54 | WPDNEURORHBP ---
Subjective Date/time seen: 07/10/19 12:54 Interval history: this 69-year-old is here because of critical illness myopathy / neuropathy with multiple medical issues is doing very well and walking remarkably well walked 120 feet denies any headache nausea vomiting chest pain shortness of breath fever chills or sore throat Review of Systems Review of Systems: All systems reviewed & are unremarkable except as noted in HPI and below Functional Status Ambulation Ability Ability to Ambulate 10 Feet: Contact Guard Ability to Ambulate 50 Feet With 2 Turns: Contact Guard Ability to Ambulate 150 Feet: Minimum Assistance X 1 Ambulation Assistive Devices: Walker, Wheeled Transfers Ability Ability to Transfer In/Out of Chair: Minimum Assistance X 1 Exam Const: General: comfortable and no acute distress HENMT: General nose exam: Normal nares present Mouth: Yes moist mucous membranes Eyes: General: appearance normal, both eyes and all related structures Neck: Neck: supple and no JVD Resp: Effort & Inspection: normal respiratory effort Auscultation: clear to auscultation bilaterally Cardio: Rate: regular rate Rhythm: regular rhythm GI: GI Palp: Yes Soft to palpation Auscultation: normal bowel sounds Urinary Catheter: Urinary Catheter: patent and draining Skin: General skin exam: normal color and no rashes or lesions noted Neuro: Other: patient's mental status is normal cranial exam is normal his strength is improving Extrem: General: normal to inspection Psych: Mental Status: mental status grossly normal Objective Data Vital Signs Vital Signs: Vital Signs - 24 hr 07/09/19 14:00 07/09/19 20:02 07/09/19 20:04 Temperature 36.7 C Pulse Rate 71 83 83 Respiratory Rate 20 20 Blood Pressure 111/97 H Pulse Oximetry 96 95 07/09/19 20:08 07/09/19 22:00 07/09/19 22:20 Temperature 36.6 C Pulse Rate 88 89 92 Respiratory Rate 20 16 Blood Pressure 130/75 Pulse Oximetry 99 96 07/10/19 02:12 07/10/19 06:00 07/10/19 09:03 Temperature 36.1 C L Pulse Rate 92 77 78 Respiratory Rate 12 20 Blood Pressure 128/74 Pulse Oximetry 96 98 07/10/19 09:04 Temperature Pulse Rate 78 Respiratory Rate Blood Pressure Pulse Oximetry Intake/Output Intake/Output: Intake & Output 07/07/19 07/08/19 07/09/1927/20 23:59 23:59 23:59 23:59 Intake Total 760 720 720 240 Output Total 700 1150 Balance 60 -430 720 240 Meds/Results Medications: Active Medications Generic Name Dose Route Start Last Admin Trade Name Freq PRN Reason Stop Dose Admin Acetaminophen 650 mg 07/01/19 17:00 07/10/19 12:03 Tylenol Tablet PO 650 mg TID LAURA Administration Albuterol 2.5 mg 07/01/19 16:11 Albuterol Sulf Neb 2.5mg/0.5ml NEBULIZE Q6H PRN Shortness Of Breath Or Wheezing Apixaban 2.5 mg 07/01/19 17:00 07/10/19 09:03 Eliquis PO 2.5 mg BID LAURA Administration Bumetanide 1 mg 07/01/19 17:00 07/10/19 09:04 Bumex Po PO 1 mg BID LAURA Administration Digoxin 125 mcg 07/02/19 09:00 07/10/19 09:04 Lanoxin Tab PO 125 mcg DAILY [facility] Administration Metoprolol Tartrate 50 mg 07/01/19 21:00 07/10/19 09:03 Lopressor PO 50 mg Q12HR LAURA Administration Miconazole Nitrate 1 applic 07/02/19 10:00 07/10/19 09:04 Miconazole Nitrate 2% Cream TOPICAL 1 applic Q12HR LAURA Administration Ondansetron HCl 4 mg 07/01/19 16:11 Zofran Odt PO Q6H PRN Nausea And Vomiting Pantoprazole Sodium 40 mg 07/01/19 21:00 07/10/19 09:02 Protonix PO 40 mg Q12HR LAURA Administration Polyethylene Glycol 17 gm 07/02/19 09:00 07/10/19 09:02 Miralax PO 17 gm DAILY [facility] Administration Potassium Chloride 20 meq 07/01/19 17:00 07/10/19 12:03 Kcl Tablet PO 20 meq TID LAURA Administration Salmeterol Xinafoate 1 puff 07/09/19 13:00 07/10/19 09:17 Serevent Diskus INHALATION 1 puff Q12HRT LAURA Administration Simethicone
--- NOTE | 2019-07-10 13:18 | PCDIET ---
Nutrition Follow-Up Complete: Nutrition Diagnosis: Decreased sodium needs related to CHF as evidenced by EMR. Nutrition Goal: Patient to consume 75% of meals or greater. Goal met. Patient consuming 100% of most meals on diabetic diet. 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 Patient reports good appetite and denies concerns. Basic diabetic diet review provided this date. Last recorded weight is 132.8 kg. Recommend obtaining new weight. Bowel Motility: Last documented BM on 07/09/19. Labs Reviewed: BUN (27), Na (134) Meds Noted: Albuterol, Protonix, KCl, Bumex, Miralax Additional Notes: No documented skin breakdown. Will continue to monitor with same goal. Nutrition Monitoring and Evaluation: Follow up every 7 days.
[2019-07-11] VITALS (12 sets, daily range): BP systolic 125–139; BP diastolic 59–75; PULSE 68–104; RESP 14–20; TEMP 36.5–37.2; O2SAT 94–97
[2019-07-11] MEDS: SALMETEROL XINAFOATE 50 MCG DISKUS 1 PUFF INHALATION ×2 (08:23→20:47)
[2019-07-11] MEDS: ACETAMINOPHEN 325 MG TABLET 650 MG PO ×3 (08:35→16:39)
[2019-07-11] MEDS: METOPROLOL TARTRATE 50 MG TAB PO ×2 (08:36→21:34)
[2019-07-11] MEDS: PANTOPRAZOLE 40 MG TABLET PO ×2 (08:36→21:35)
[2019-07-11] MEDS: DIGOXIN TAB 125 MCG TABLET PO (08:36)
[2019-07-11] MEDS: APIXABAN 2.5 MG TABLET PO ×2 (08:36→16:38)
[2019-07-11] MEDS: POTASSIUM CHLORIDE 10 MEQ TABLET.ER 20 MEQ PO ×3 (08:36→16:38)
[2019-07-11] MEDS: polyethylene glycoL 3350 17 GM POWD.PACK PO (08:37)
[2019-07-11] MEDS: TOLNAFTATE 1% POWDER 45 GM BTL 1 APPLIC TOPICAL ×2 (08:37→21:35)
[2019-07-11] MEDS: SIMETHICONE 125 MG CHEW TAB PO ×3 (08:37→16:39)
[2019-07-11] MEDS: MICONAZOLE NITRATE 2% CREAM 30 GM TUBE 1 APPLIC TOPICAL ×2 (08:37→21:35)
[2019-07-11] MEDS: BUMETANIDE 1 MG TABLET PO ×2 (08:37→16:39)
[2019-07-12] VITALS (11 sets, daily range): BP systolic 119–138; BP diastolic 49–82; PULSE 76–97; RESP 9–20; TEMP 36.2–37.2; O2SAT 94–97
[2019-07-12] MEDS: SALMETEROL XINAFOATE 50 MCG DISKUS 1 PUFF INHALATION ×2 (07:58→20:37)
[2019-07-12] MEDS: ACETAMINOPHEN 325 MG TABLET 650 MG PO ×3 (08:45→18:11)
[2019-07-12] MEDS: BUMETANIDE 1 MG TABLET PO ×2 (08:45→18:11)
[2019-07-12] MEDS: METOPROLOL TARTRATE 50 MG TAB PO ×2 (08:45→20:49)
[2019-07-12] MEDS: APIXABAN 2.5 MG TABLET PO ×2 (08:45→18:12)
[2019-07-12] MEDS: PANTOPRAZOLE 40 MG TABLET PO ×2 (08:45→20:50)
[2019-07-12] MEDS: POTASSIUM CHLORIDE 10 MEQ TABLET.ER 20 MEQ PO ×3 (08:45→18:11)
[2019-07-12] MEDS: SIMETHICONE 125 MG CHEW TAB PO ×3 (08:46→18:12)
[2019-07-12] MEDS: polyethylene glycoL 3350 17 GM POWD.PACK PO (08:46)
[2019-07-12] MEDS: DIGOXIN TAB 125 MCG TABLET PO (08:46)
[2019-07-12] MEDS: TOLNAFTATE 1% POWDER 45 GM BTL 1 APPLIC TOPICAL ×2 (08:46→20:50)
[2019-07-12] MEDS: MICONAZOLE NITRATE 2% CREAM 30 GM TUBE 1 APPLIC TOPICAL ×2 (08:46→20:50)
--- NOTE | 2019-07-12 11:47 | WPDNEURORHBP ---
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 with multiple medical issues has how ready been mentioned in the previous notes sense also in my history and physical examination he is doing fairly well walking of course with the walker quite a bit denies any chest pain shortness of breath headache nausea vomiting fever chills or sore throat Review of Systems Review of Systems: All systems reviewed & are unremarkable except as noted in HPI and below Functional Status Ambulation Ability Ability to Ambulate 10 Feet: Contact Guard Ability to Ambulate 50 Feet With 2 Turns: Contact Guard Ability to Ambulate 150 Feet: Minimum Assistance X 1 Ambulation Assistive Devices: Walker, Wheeled Transfers Ability Ability to Transfer In/Out of Chair: Minimum Assistance X 1 Exam Const: General: comfortable and no acute distress HENMT: General nose exam: Normal nares present Mouth: Yes moist mucous membranes Eyes: General: appearance normal, both eyes and all related structures Resp: Effort & Inspection: normal respiratory effort Auscultation: clear to auscultation bilaterally Cardio: Rate: regular rate Rhythm: regular rhythm GI: GI Palp: Yes Soft to palpation Auscultation: normal bowel sounds Urinary Catheter: Urinary Catheter: patent and draining Skin: General skin exam: normal color and no rashes or lesions noted Neuro: Other: patient is awake and alert well oriented he denies any headache nausea vomiting chest pain shortness of breath fever chills or sore throat his weakness has been improving and his walking quite a bit which is significant improvement from the time he started seeing him and the rehab Extrem: General: normal to inspection Psych: Mental Status: mental status grossly normal Objective Data Vital Signs Vital Signs: Vital Signs - 24 hr 07/11/19 14:00 07/11/19 20:00 07/11/19 20:49 Temperature 36.5 C Pulse Rate 104 H 95 Respiratory Rate 20 20 Blood Pressure 139/74 Pulse Oximetry 94 94 94 07/11/19 21:02 07/11/19 21:34 07/11/19 22:00 Temperature 36.6 C Pulse Rate 87 95 95 Respiratory Rate 14 20 Blood Pressure 125/66 Pulse Oximetry 96 94 07/12/19 06:00 07/12/19 08:01 07/12/19 08:45 Temperature 36.2 C L Pulse Rate 97 97 Respiratory Rate 20 Blood Pressure 138/67 Pulse Oximetry 95 97 07/12/19 08:46 07/12/19 10:49 Temperature Pulse Rate 97 97 Respiratory Rate 20 Blood Pressure Pulse Oximetry 97 Intake/Output Intake/Output: Intake & Output 07/09/19 07/10/19 07/11/19 07/12/19 23:59 23:59 23:59 23:59 Intake Total 777 352 9077 240 Output Total 3400 1400 Balance 720 720 2060 -1160 Meds/Results Medications: Active Medications Generic Name Dose Route Start Last Admin Trade Name Freq PRN Reason Stop Dose Admin Acetaminophen 650 mg 07/01/19 17:00 07/12/19 08:45 Tylenol Tablet PO 650 mg TID LAURA Administration Albuterol 2.5 mg 07/01/19 16:11 Albuterol Sulf Neb 2.5mg/0.5ml NEBULIZE Q6H PRN Shortness Of Breath Or Wheezing Apixaban 2.5 mg 07/01/19 17:00 07/12/19 08:45 Eliquis PO 2.5 mg BID LAURA Administration Bumetanide 1 mg 07/01/19 17:00 07/12/19 08:45 Bumex Po PO 1 mg BID LAURA Administration Digoxin 125 mcg 07/02/19 09:00 07/12/19 08:46 Lanoxin Tab PO 125 mcg DAILY [facility] Administration Metoprolol Tartrate 50 mg 07/01/19 21:00 07/12/19 08:45 Lopressor PO 50 mg Q12HR [facility] Administration Miconazole Nitrate 1 applic 07/02/19 10:00 07/12/19 08:46 Miconazole Nitrate 2% Cream TOPICAL 1 applic Q12HR [facility]URA Administration Ondansetron HCl 4 mg 07/01/19 16:11 Zofran Odt PO Q6H PRN Nausea And Vomiting Pantoprazole Sodium 40 mg 07/01/19 21:00 07/12/19 08:45 Protonix PO 40 mg Q12HR LAURA Administration Polyethylene Glycol 17 gm 07/02/19 09
[2019-07-13] VITALS (7 sets, daily range): BP systolic 93–131; BP diastolic 51–85; PULSE 68–88; RESP 20; TEMP 36.2–37.6; O2SAT 95–97
[2019-07-13] MEDS: SALMETEROL XINAFOATE 50 MCG DISKUS 1 PUFF INHALATION ×2 (08:29→19:39)
[2019-07-13] MEDS: ACETAMINOPHEN 325 MG TABLET 650 MG PO ×3 (09:28→17:33)
[2019-07-13] MEDS: DIGOXIN TAB 125 MCG TABLET PO (09:29)
[2019-07-13] MEDS: METOPROLOL TARTRATE 50 MG TAB PO ×2 (09:29→20:48)
[2019-07-13] MEDS: APIXABAN 2.5 MG TABLET PO ×2 (09:29→17:33)
[2019-07-13] MEDS: BUMETANIDE 1 MG TABLET PO ×2 (09:29→17:32)
[2019-07-13] MEDS: SIMETHICONE 125 MG CHEW TAB PO ×3 (09:29→17:33)
[2019-07-13] MEDS: POTASSIUM CHLORIDE 10 MEQ TABLET.ER 20 MEQ PO ×3 (09:30→17:33)
[2019-07-13] MEDS: polyethylene glycoL 3350 17 GM POWD.PACK PO (09:30)
[2019-07-13] MEDS: TOLNAFTATE 1% POWDER 45 GM BTL 1 APPLIC TOPICAL ×2 (09:30→20:49)
[2019-07-13] MEDS: PANTOPRAZOLE 40 MG TABLET PO ×2 (09:30→20:49)
[2019-07-13] MEDS: MICONAZOLE NITRATE 2% CREAM 30 GM TUBE 1 APPLIC TOPICAL ×2 (09:30→20:49)
--- NOTE | 2019-07-13 15:30 | WPDNEURORHBP ---
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 He has done remarkably well in the previous to week and is able to walk fairly good of course using the walker he denies any headache nausea vomiting chest pain shortness of breath fever chills or sore throat Review of Systems Review of Systems: All systems reviewed & are unremarkable except as noted in HPI and below Functional Status Ambulation Ability Ability to Ambulate 10 Feet: Standby Assistance Ability to Ambulate 50 Feet With 2 Turns: Standby Assistance Ability to Ambulate 150 Feet: Standby Assistance Ambulation Assistive Devices: Walker, Wheeled Transfers Ability Ability to Transfer In/Out of Chair: Minimum Assistance X 1 Exam Const: General: comfortable and no acute distress HENMT: General nose exam: Normal nares present Mouth: Yes moist mucous membranes Eyes: General: appearance normal, both eyes and all related structures Neck: Neck: supple and no JVD Resp: Effort & Inspection: normal respiratory effort Auscultation: clear to auscultation bilaterally Cardio: Rate: regular rate Rhythm: regular rhythm GI: GI Palp: Yes Soft to palpation Auscultation: normal bowel sounds Skin: General skin exam: normal color and no rashes or lesions noted Neuro: Other: patient is awake and alert well oriented time place and person has normal speech and language function normal cranial examination and significantly improved strength in both lower and upper extremities course with the evidence of peripheral neuropathy which is stable Extrem: General: normal to inspection Psych: Mental Status: mental status grossly normal Objective Data Vital Signs Vital Signs: Vital Signs - 24 hr 07/12/19 20:00 07/12/19 20:40 07/12/19 20:49 Temperature Pulse Rate 83 83 83 Respiratory Rate 20 9 L Blood Pressure Pulse Oximetry 94 95 07/12/19 22:00 07/13/19 06:00 07/13/19 09:29 Temperature 36.5 C 36.8 C Pulse Rate 83 87 88 Respiratory Rate 20 20 Blood Pressure 130/82 131/85 Pulse Oximetry 94 95 Intake/Output Intake/Output: Intake & Output 07/10/19 07/11/19 07/12/19 07/13/19 23:59 23:59 23:59 23:59 Intake Total 720 1340 1270 240 Output Total 3400 2150 1450 Balance 056 -1189 -880 -1210 Meds/Results Medications: Active Medications Generic Name Dose Route Start Last Admin Trade Name Freq PRN Reason Stop Dose Admin Acetaminophen 650 mg 07/01/19 17:00 07/13/19 13:14 Tylenol Tablet PO 650 mg TID LAURA Administration Albuterol 2.5 mg 07/01/19 16:11 Albuterol Sulf Neb 2.5mg/0.5ml NEBULIZE Q6H PRN Shortness Of Breath Or Wheezing Apixaban 2.5 mg 07/01/19 17:00 07/13/19 09:29 Eliquis PO 2.5 mg BID LAURA Administration Bumetanide 1 mg 07/01/19 17:00 07/13/19 09:29 Bumex Po PO 1 mg BID LAURA Administration Digoxin 125 mcg 07/02/19 09:00 07/13/19 09:29 Lanoxin Tab PO 125 mcg DAILY [facility] Administration Metoprolol Tartrate 50 mg 07/01/19 21:00 07/13/19 09:29 Lopressor PO 50 mg Q12HR [facility]A Administration Miconazole Nitrate 1 applic 07/02/19 10:00 07/13/19 09:30 Miconazole Nitrate 2% Cream TOPICAL 1 applic Q12HR [facility] Administration Ondansetron HCl 4 mg 07/01/19 16:11 Zofran Odt PO Q6H PRN Nausea And Vomiting Pantoprazole Sodium 40 mg 07/01/19 21:00 07/13/19 09:30 Protonix PO 40 mg Q12HR [facility] Administration Polyethylene Glycol 17 gm 07/02/19 09:00 07/13/19 09:30 Miralax PO 17 gm DAILY [facility] Administration Potassium Chloride 20 meq 07/01/19 17:00 07/13/19 13:14 Kcl Tablet PO 20 meq TID LAURA Administration Salmeterol Xinafoate 1 puff 07/09/19 13:00 07/13/19 08:29 Serevent Diskus INHALATION 1 puff Q12HRT LAURA Administration Simethicone 125 mg 07/01/19 17:00 07/12
[2019-07-14] VITALS (9 sets, daily range): BP systolic 100–112; BP diastolic 59–71; PULSE 74–90; RESP 14–20; TEMP 36.1–36.7; O2SAT 91–97
[2019-07-14] MEDS: ACETAMINOPHEN 325 MG TABLET 650 MG PO ×3 (08:13→17:48)
[2019-07-14] MEDS: polyethylene glycoL 3350 17 GM POWD.PACK PO (08:13)
[2019-07-14] MEDS: POTASSIUM CHLORIDE 10 MEQ TABLET.ER 20 MEQ PO ×3 (08:13→17:50)
[2019-07-14] MEDS: SIMETHICONE 125 MG CHEW TAB PO ×3 (08:14→17:49)
[2019-07-14] MEDS: BUMETANIDE 1 MG TABLET PO ×2 (08:14→17:49)
[2019-07-14] MEDS: METOPROLOL TARTRATE 50 MG TAB PO ×2 (08:14→20:11)
[2019-07-14] MEDS: PANTOPRAZOLE 40 MG TABLET PO ×2 (08:14→20:11)
[2019-07-14] MEDS: APIXABAN 2.5 MG TABLET PO ×2 (08:14→17:50)
[2019-07-14] MEDS: DIGOXIN TAB 125 MCG TABLET PO (08:14)
[2019-07-14] MEDS: MICONAZOLE NITRATE 2% CREAM 30 GM TUBE 1 APPLIC TOPICAL ×2 (08:15→20:11)
[2019-07-14] MEDS: TOLNAFTATE 1% POWDER 45 GM BTL 1 APPLIC TOPICAL ×2 (08:15→20:10)
[2019-07-14] MEDS: SALMETEROL XINAFOATE 50 MCG DISKUS 1 PUFF INHALATION ×2 (09:25→19:26)
--- NOTE | 2019-07-14 18:02 | WPDNEURORHBP ---
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 he has done fairly well and moving forward engage in therapy quite happy is still has the Mccarty catheter we will give another chance next week for the bladder training which has failed in the past Review of Systems Review of Systems: All systems reviewed & are unremarkable except as noted in HPI and below Functional Status Ambulation Ability Ability to Ambulate 10 Feet: Standby Assistance Ability to Ambulate 50 Feet With 2 Turns: Standby Assistance Ability to Ambulate 150 Feet: Standby Assistance Ambulation Assistive Devices: Walker, Wheeled Transfers Ability Ability to Transfer In/Out of Chair: Minimum Assistance X 1 Exam Const: General: comfortable and no acute distress HENMT: General nose exam: Normal nares present Mouth: Yes moist mucous membranes Eyes: General: appearance normal, both eyes and all related structures Neck: Neck: supple and no JVD Resp: Effort & Inspection: normal respiratory effort Auscultation: clear to auscultation bilaterally Cardio: Rate: regular rate Rhythm: regular rhythm GI: GI Palp: Yes Soft to palpation Auscultation: normal bowel sounds Skin: General skin exam: normal color and no rashes or lesions noted Neuro: Other: patient is awake and alert well oriented has normal speech and language function normal cranial examination is strength in both upper lower extremities improving significant Extrem: General: normal to inspection Psych: Mental Status: mental status grossly normal Objective Data Vital Signs Vital Signs: Vital Signs - 24 hr 07/13/19 20:00 07/13/19 20:48 07/13/19 22:00 Temperature 37.6 C Pulse Rate 80 79 Respiratory Rate 20 Blood Pressure 131/61 Pulse Oximetry 97 97 07/14/19 00:13 07/14/19 06:00 07/14/19 08:14 Temperature 36.1 C L Pulse Rate 81 76 76 Respiratory Rate 14 20 Blood Pressure 100/59 L Pulse Oximetry 95 97 07/14/19 09:46 07/14/19 13:00 07/14/19 14:00 Temperature 36.6 C Pulse Rate 74 90 Respiratory Rate 20 18 Blood Pressure 107/62 Pulse Oximetry 93 93 96 Intake/Output Intake/Output: Intake & Output 07/11/19 07/12/19 07/13/19 07/14/19 23:59 23:59 23:59 23:59 Intake Total 1340 1270 840 720 Output Total 3400 2150 8264 7879 Balance -4018 -829 -366 -7986 Meds/Results Medications: Active Medications Generic Name Dose Route Start Last Admin Trade Name Freq PRN Reason Stop Dose Admin Acetaminophen 650 mg 07/01/19 17:00 07/14/19 17:48 Tylenol Tablet PO 650 mg TID LAURA Administration Albuterol 2.5 mg 07/01/19 16:11 Albuterol Sulf Neb 2.5mg/0.5ml NEBULIZE Q6H PRN Shortness Of Breath Or Wheezing Apixaban 2.5 mg 07/01/19 17:00 07/14/19 17:50 Eliquis PO 2.5 mg BID LAURA Administration Bumetanide 1 mg 07/01/19 17:00 07/14/19 17:49 Bumex Po PO 1 mg BID LAURA Administration Digoxin 125 mcg 07/02/19 09:00 07/14/19 08:14 Lanoxin Tab PO 125 mcg DAILY [facility] Administration Metoprolol Tartrate 50 mg 07/01/19 21:00 07/14/19 08:14 Lopressor PO 50 mg Q12HR LAURA Administration Miconazole Nitrate 1 applic 07/02/19 10:00 07/14/19 08:15 Miconazole Nitrate 2% Cream TOPICAL 1 applic Q12HR LAURA Administration Ondansetron HCl 4 mg 07/01/19 16:11 Zofran Odt PO Q6H PRN Nausea And Vomiting Pantoprazole Sodium 40 mg 07/01/19 21:00 07/14/19 08:14 Protonix PO 40 mg Q12HR LAURA Administration Polyethylene Glycol 17 gm 07/02/19 09:00 07/14/19 08:13 Miralax PO 17 gm DAILY [facility] Administration Potassium Chloride 20 meq 07/01/19 17:00 07/14/19 17:50 Kcl Tablet PO 20 meq TID LAURA Administration Salmeterol Xinafoate 1 puff 07/09/19 13:00 07/14/19 09:25 Serevent Diskus INHALATION 1 p
[2019-07-15] VITALS (8 sets, daily range): BP systolic 89–147; BP diastolic 67–92; PULSE 75–92; RESP 18–20; TEMP 36.7–36.9; O2SAT 93–98
[2019-07-15] MEDS: ONDANSETRON HCL ODT 4 MG TABLET PO ×2 (07:44→14:05)
[2019-07-15] MEDS: POTASSIUM CHLORIDE 10 MEQ TABLET.ER 20 MEQ PO ×2 (08:56→17:48)
[2019-07-15] MEDS: polyethylene glycoL 3350 17 GM POWD.PACK PO (08:56)
[2019-07-15] MEDS: DIGOXIN TAB 125 MCG TABLET PO (08:56)
[2019-07-15] MEDS: ACETAMINOPHEN 325 MG TABLET 650 MG PO ×2 (08:57→17:48)
[2019-07-15] MEDS: PANTOPRAZOLE 40 MG TABLET PO ×2 (08:57→20:03)
[2019-07-15] MEDS: METOPROLOL TARTRATE 50 MG TAB PO ×2 (08:57→20:02)
[2019-07-15] MEDS: APIXABAN 2.5 MG TABLET PO ×2 (08:57→17:48)
[2019-07-15] MEDS: SIMETHICONE 125 MG CHEW TAB PO ×2 (08:57→17:48)
[2019-07-15] MEDS: TOLNAFTATE 1% POWDER 45 GM BTL 1 APPLIC TOPICAL ×2 (08:58→20:03)
[2019-07-15] MEDS: MICONAZOLE NITRATE 2% CREAM 30 GM TUBE 1 APPLIC TOPICAL ×2 (08:58→20:03)
[2019-07-15] MEDS: SALMETEROL XINAFOATE 50 MCG DISKUS 1 PUFF INHALATION (09:15)
--- NOTE | 2019-07-15 09:57 | WPDNEURORHBP ---
Subjective Date/time seen: critical illness related neuropathy and myopathy superimposed on diabeti neuropathygoing through bladder training feels [id number]/01/20 09:57 Review of Systems Review of Systems: All systems reviewed & are unremarkable except as noted in HPI and below Functional Status Ambulation Ability Ability to Ambulate 10 Feet: Standby Assistance Ability to Ambulate 50 Feet With 2 Turns: Standby Assistance Ability to Ambulate 150 Feet: Standby Assistance Ambulation Assistive Devices: Walker, Wheeled Transfers Ability Ability to Transfer In/Out of Chair: Minimum Assistance X 1 Exam Const: General: cooperative, comfortable, no acute distress, alert and awake Orientation/consciousness: patient oriented x3 HENMT: Head: normal to inspection Eyes: General: appearance normal, both eyes and all related structures Neck: Neck: full ROM and no lymphadenopathy Chest: Chest palpation & inspection: normal inspection of the chest Resp: Effort & Inspection: normal respiratory effort and able to speak in complete sentences Auscultation: clear to auscultation bilaterally Cardio: Rate: regular rate Rhythm: regular rhythm GI: Percussion: Yes normal to percussion Auscultation: normal bowel sounds Neuro: General: patient oriented x3, tone normal and moves all extremities Cranial nerves: Yes CN's II-XII intact bilaterally Cognition (Neuro): normal cognition Speech: normal speech Motor exam (neuro): 5/5 motor strength present throughout (improving) and Abnormal motor strength present (improving) Sensory Exam: Sensory deficit (Neuro) Psych: Appearance: grossly normal Objective Data Vital Signs Vital Signs: Vital Signs - 24 hr 07/14/19 13:00 07/14/19 14:00 07/14/19 19:27 Temperature 36.6 C Pulse Rate 74 90 Respiratory Rate 20 18 Blood Pressure 107/62 Pulse Oximetry 93 96 91 07/14/19 20:11 07/14/19 22:00 07/15/19 06:00 Temperature 36.7 C 36.7 C Pulse Rate 88 79 86 Respiratory Rate 20 20 Blood Pressure 112/71 147/92 H Pulse Oximetry 96 94 07/15/19 08:56 07/15/19 08:57 Temperature Pulse Rate 86 86 Respiratory Rate Blood Pressure Pulse Oximetry Intake/Output Intake/Output: Intake & Output 07/12/19 07/13/19 07/14/19 07/15/19 23:59 23:59 23:59 23:59 Intake Total 6050 791 9576 240 Output Total 1511 9220 0011 1800 [facility] -956 -252 -4190 -4580 Meds/Results Medications: Active Medications Generic Name Dose Route Start Last Admin Trade Name Freq PRN Reason Stop Dose Admin Acetaminophen 650 mg 07/01/19 17:00 07/15/19 08:57 Tylenol Tablet PO 650 mg TID LAURA Administration Albuterol 2.5 mg 07/01/19 16:11 Albuterol Sulf Neb 2.5mg/0.5ml NEBULIZE Q6H PRN Shortness Of Breath Or Wheezing Apixaban 2.5 mg 07/01/19 17:00 07/15/19 08:57 Eliquis PO 2.5 mg BID LAURA Administration Bumetanide 1 mg 07/01/19 17:00 07/14/19 17:49 Bumex Po PO 1 mg BID LAURA Administration Digoxin 125 mcg 07/02/19 09:00 07/15/19 08:56 Lanoxin Tab PO 125 mcg DAILY [facility] Administration Metoprolol Tartrate 50 mg 07/01/19 21:00 07/15/19 08:57 Lopressor PO 50 mg Q12HR LAURA Administration Miconazole Nitrate 1 applic 07/02/19 10:00 07/15/19 08:58 Miconazole Nitrate 2% Cream TOPICAL 1 applic Q12HR LAURA Administration Ondansetron HCl 4 mg 07/01/19 16:11 07/15/19 07:44 Zofran Odt PO 4 mg Q6H PRN Administration Nausea And Vomiting Pantoprazole Sodium 40 mg 07/01/19 21:00 07/15/19 08:57 Protonix PO 40 mg Q12HR LAURA Administration Polyethylene Glycol 17 gm 07/02/19 09:00 07/15/19 08:56 Miralax PO 17 gm DAILY [facility] Administration Potassium Chloride 20 meq 07/01/19 17:00 07/15/19 08:56 Kcl Tablet PO 20 meq TID LAURA Administration Salmeterol Xinafoate 1 puff 07/09/19 13:00 07/15/19 09:15 Serevent Diskus INHALATION 1 puff Q12HRT LAURA Administration Simethicone 125 mg 05
[2019-07-15] MEDS: BUMETANIDE 1 MG TABLET PO ×2 (09:59→17:48)
--- NOTE | 2019-07-15 13:30 | PCOTNOTE ---
Attempted to see Patient 2 times this afternoon. Patient refused/declined therapy services, stating he is sick as a dog, so sick to his stomach, nausea . Patient did not receive full OT minutes this date.
--- NOTE | 2019-07-15 13:34 | PC.NURSE ---
pt c/o nausea and stomach being upset. pt did not want to take 1300 medications at this time. md updated.
--- NOTE | 2019-07-15 14:07 | PC.NURSE ---
Pt c/o nausea this morning. zofran was given with some effectiveness noted. pt stated he felt better. around lunch time therapy staff stated patient had a low blood pressure . manual blood pressure was noted at 120/60. Pt was layed down at that time. Pt stated he still feels nauseated with 1 small emesis. MD was updated and received n.o. for stat cbc, bmp and said may change zofran to q 4 hours prn. zofran was also given at this time. will continue to monitor.
[2019-07-15 14:39] LABS: Basophils Percent Auto 0.3 % (0.2-1.2); Eosinophils Absolute Auto 0.2 K/mm3 (0-0.3); Eosinophils Percent Auto 1.3 % (0-4.4); Hematocrit 44.9 % (42.0-52.0); Hemoglobin 14.5 g/dL (14.0-18.0); Immature Granulocyte Absolute 0.09 K/mm3 (0.00-0.031); Immature Granulocyte Percent A 0.6 % (0-0.5); Lymphocytes Absolute Auto 1.05 K/mm3 (0.9-3.2); Lymphocytes Percent Auto 6.7 % (18.3-44.2); Mean Corpuscular HGB Conc 32.3 g/dl (32-36); Mean Corpuscular Hemoglobin 30.1 pg (26-34); Mean Corpuscular Volume 93.3 fl (80-100); Mean Platelet Volume 9.5 fl (7.4-10.4); Monocytes Percent Auto 6.1 % (2.6-8.5); Neutrophils Absolute Auto 13.3 K/mm3 (1.3-6.7); Platelet Count Result 205 k/mm3 (150-375); Red Blood Count 4.81 M/mm3 (4.6-6.20); Red Cell Distribution Width 16.4 % (11.5-14.5); White Blood Count 15.6 K/mm3 (4.5-10.0)
[2019-07-15 14:51] LABS: Blood Urea Nitrogen 25 mg/dL (9-20); Calcium 9.5 mg/dL (8.4-10.2); Carbon Dioxide 29 mmol/L (22-30); Chloride 95 mmol/L (98-107); Estimated CRCL calculation 57 ml/min; Estimated Glomerular Filt Rate 50; Glucose 130 mg/dL (75-110); Potassium 4.7 mmol/L (3.4-5.0); Sodium 133 mmol/L (137-145)
--- NOTE | 2019-07-15 15:06 | PC.NURSE ---
Dr Small updated regarding elevated WBC. Received N.O. to obtain urine culture, discontinue blanton, bladder scan and straight cath if residual over 350 mL. patient is continuing to have some emesis at this time.
--- NOTE | 2019-07-15 15:16 | PCPTNOTE ---
Patient refused treatment this session due to to feeling nauseated and dizzy @ 14:10 and 15:00. CANE FEEDER assessed vitals blood pressure 122/80, pulse 86 and O2 95%. Patient did not receive full PT minutes this date. Will continue per POC.
[2019-07-15] MEDS: DEXTROSE 5%/0.9% SOD CHL 1,000 ML 60 ML IV CONT (16:14)
[2019-07-15 19:17] LABS: Add Urine Microscopic? YES; Amorphous Sediment Urine Few; Appearance Urine Cloudy (Clear); Bacteria Urine Trace /hpf; Bilirubin Urine Negative (Negative); Blood Urine 3+ (Negative); Color Urine Yellow (Yellow); Glucose Urine UA Negative (Negative); Hyaline Casts Urine 30-49 /lpf; Ketones Urine Negative (Negative); Leukocyte Esterase Ur 2+ LEU/UL (Negative); Mucus Urine Few /lpf; Nitrate Urine Negative (Negative); Protein Urine 1+ mg/dL (Negative); RBC Urine >75 /hpf (0-2); Specific Grav Ur 1.021 (1.001-1.035); Squamous Epithelial Cell Urine Rare /hpf (Few); Urobilinogen Urine Negative mg/dL (<2.0); WBC Urine 51-75 /hpf
--- NOTE | 2019-07-15 19:52 | PC.NURSE ---
call was placed to Dr Mayberry regarding patient. Patient had large emesis and was unable to keep medications down. Dr Mayberry requested IV fluids to be changed to Normal Saline at 80 ml/hr. He also requested abdominal xray and chest xray. both were clear with results called to Dr Mayberry. UA results back pending culture. received order for IV Rocephin 2 gm/100 ml x 1 dose.
[2019-07-15] MEDS: SODIUM CHLORIDE 0.9% IV 1,000 ML 80 ML IV CONT (20:00)
[2019-07-16] VITALS (9 sets, daily range): BP systolic 101–136; BP diastolic 73–83; PULSE 60–99; RESP 17–19; TEMP 36.3–36.7; O2SAT 93–95
--- NOTE | 2019-07-16 01:16 | PC.NURSE ---
blanton out as ordered around 2100, amb with walker to bathroom, had large loose bm, states he felt like he urinated, will cont to monitor
[2019-07-16 04:34] LABS: Basophils Percent Auto 0.3 % (0.2-1.2); Eosinophils Percent Auto 0.3 % (0-4.4); Hematocrit 44.5 % (42.0-52.0); Hemoglobin 14.2 g/dL (14.0-18.0); Immature Granulocyte Absolute 0.03 K/mm3 (0.00-0.031); Immature Granulocyte Percent A 0.3 % (0-0.5); Lymphocytes Absolute Auto 0.98 K/mm3 (0.9-3.2); Lymphocytes Percent Auto 9.2 % (18.3-44.2); Mean Corpuscular HGB Conc 31.9 g/dl (32-36); Mean Corpuscular Volume 94.1 fl (80-100); Mean Platelet Volume 9.6 fl (7.4-10.4); Monocytes Absolute Auto 0.7 K/mm3 (0.1-0.6); Monocytes Percent Auto 6.2 % (2.6-8.5); Neutrophils Absolute Auto 8.9 K/mm3 (1.3-6.7); Neutrophils Percent Auto 83.7 % (45.5-73.1); Platelet Count Result 208 k/mm3 (150-375); Red Blood Count 4.73 M/mm3 (4.6-6.20); Red Cell Distribution Width 16.1 % (11.5-14.5); White Blood Count 10.6 K/mm3 (4.5-10.0)
[2019-07-16 04:47] LABS: Blood Urea Nitrogen 27 mg/dL (9-20); Calcium 9.2 mg/dL (8.4-10.2); Carbon Dioxide 28 mmol/L (22-30); Chloride 95 mmol/L (98-107); Estimated CRCL calculation 53 ml/min; Estimated Glomerular Filt Rate 46; Glucose 138 mg/dL (75-110); Potassium 4.4 mmol/L (3.4-5.0); Sodium 133 mmol/L (137-145)
[2019-07-16] MEDS: SALMETEROL XINAFOATE 50 MCG DISKUS 1 PUFF INHALATION ×2 (08:29→22:11)
[2019-07-16] MEDS: POTASSIUM CHLORIDE 10 MEQ TABLET.ER 20 MEQ PO ×3 (09:59→17:37)
[2019-07-16] MEDS: APIXABAN 2.5 MG TABLET PO ×2 (09:59→17:38)
[2019-07-16] MEDS: ACETAMINOPHEN 325 MG TABLET 650 MG PO ×3 (09:59→17:38)
[2019-07-16] MEDS: METOPROLOL TARTRATE 50 MG TAB PO ×2 (10:00→21:27)
[2019-07-16] MEDS: PANTOPRAZOLE 40 MG TABLET PO ×2 (10:00→21:27)
[2019-07-16] MEDS: polyethylene glycoL 3350 17 GM POWD.PACK PO (10:00)
[2019-07-16] MEDS: DIGOXIN TAB 125 MCG TABLET PO (10:00)
[2019-07-16] MEDS: MICONAZOLE NITRATE 2% CREAM 30 GM TUBE 1 APPLIC TOPICAL ×2 (10:00→21:27)
[2019-07-16] MEDS: BUMETANIDE 1 MG TABLET PO ×2 (10:00→17:38)
[2019-07-16] MEDS: SIMETHICONE 125 MG CHEW TAB PO ×3 (10:01→17:37)
[2019-07-16] MEDS: TOLNAFTATE 1% POWDER 45 GM BTL 1 APPLIC TOPICAL ×2 (10:01→21:28)
[2019-07-16] MEDS: SODIUM CHLORIDE 0.9% IV 1,000 ML 80 ML IV CONT ×2 (10:08→21:26)
--- NOTE | 2019-07-16 12:13 | PCPTNOTE ---
Patient refused treatment this session due to patient reporting feeling nauseated and light headed. Therapist assessed vitals at 8:26 blood pressure in seated position 133/83, pulse 60 and O2 93%. Therapist attempted at 11:35 for physical therapy session patient continued to reported feeling nauseated and light headed. Therapist reassessed vitals blood pressure in supine 101/76, pulse 84 O2 93% and temperature 97.6 via temporal. Therapist informed R.N. M.D and C.N.A of vital findings and patient's reports.
--- NOTE | 2019-07-16 13:06 | PCOTNOTE ---
Attempted to see Patient for therapy treatment at this time. Patient refused to participate in any activities, verbalized so sick to my stomach, nauseated . RN notified and aware.
--- NOTE | 2019-07-16 13:36 | WPDNEURORHBP ---
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 he has been doing remarkably well till yesterday foot and fact last night when she started having nausea abdominal pain and discomfort and loose stool and he does not feel as good and he was not able to walk as good as he did in the previous days he is being treated for urinary tract infection we discussed the situation in the team conference patient is refusing therapy at this time however was able to engage with some degree I am afraid if I discharge him today which was the planned that he might come back again if not for anything else but some abdominal DIS comfort the lab work shows white count which is trending down I have given an extra dose of some ceftriaxone 1 the consult from the GI spending Review of Systems Review of Systems: All systems reviewed & are unremarkable except as noted in HPI and below Functional Status Ambulation Ability Ability to Ambulate 10 Feet: Standby Assistance Ability to Ambulate 50 Feet With 2 Turns: Standby Assistance Ability to Ambulate 150 Feet: Standby Assistance Ambulation Assistive Devices: Walker, Wheeled Transfers Ability Ability to Transfer In/Out of Chair: Minimum Assistance X 1 Exam Const: General: comfortable and no acute distress HENMT: General nose exam: Normal nares present Mouth: Yes moist mucous membranes Eyes: General: appearance normal, both eyes and all related structures Neck: Neck: supple and no JVD Resp: Effort & Inspection: normal respiratory effort Auscultation: clear to auscultation bilaterally Cardio: Rate: regular rate Rhythm: regular rhythm GI: GI Palp: Yes Firmness to palpation present (GI) Auscultation: abnormal bowel sounds Urinary Catheter: Urinary Catheter: patent and draining Skin: General skin exam: normal color and no rashes or lesions noted Neuro: Other: patient has regressed in the PT and OT most likely because of the urinary tract infection however he is having some abdominal discomfort for which GI consult has been ordered Extrem: Other: swelling of the legs are stable Psych: Mental Status: mental status grossly normal Objective Data Vital Signs Vital Signs: Vital Signs - 24 hr 07/15/19 14:00 07/15/19 15:00 07/15/19 20:02 Temperature 36.7 C Pulse Rate 92 86 88 Respiratory Rate 18 Blood Pressure 109/72 122/80 Pulse Oximetry 96 95 07/15/19 22:00 07/16/19 06:00 07/16/19 08:26 Temperature 36.9 C 36.5 C Pulse Rate 85 99 60 Respiratory Rate 18 18 Blood Pressure 128/70 126/76 133/83 Pulse Oximetry 93 95 93 07/16/19 10:00 07/16/19 11:35 Temperature Pulse Rate 60 84 Respiratory Rate Blood Pressure 101/76 Pulse Oximetry 93 Intake/Output Intake/Output: Intake & Output 07/13/19 07/14/19 07/15/19 07/16/19 23:59 23:59 23:59 23:59 Intake Total 840 6839 816 3213 Output Total 1450 2650 4070 [facility] -[phone] Meds/Results Medications: Active Medications Generic Name Dose Route Start Last Admin Trade Name Freq PRN Reason Stop Dose Admin Acetaminophen 650 mg 07/01/19 17:00 07/16/19 09:59 Tylenol Tablet PO 650 mg TID LAURA Administration Albuterol 2.5 mg 07/01/19 16:11 Albuterol Sulf Neb 2.5mg/0.5ml NEBULIZE Q6H PRN Shortness Of Breath Or Wheezing Apixaban 2.5 mg 07/01/19 17:00 07/16/19 09:59 Eliquis PO 2.5 mg BID LAURA Administration Bumetanide 1 mg 07/01/19 17:00 07/16/19 10:00 Bumex Po PO 1 mg BID LAURA Administration Digoxin 125 mcg 07/02/19 09:00 07/16/19 10:00 Lanoxin Tab PO 125 mcg DAILY LAURA Administration Sodium Chloride 1,000 mls @ 80 mls/hr 07/15/19 18:15 07/16/19 10:08 Normal Saline Iv IV CONT 80 mls/hr .[id number] LAURA Administration Metoprolol Tartrate 50 mg 07/01/19 21:00 07/16/19 10:00 Lopressor PO 50 mg Q12HR LAURA Administration
--- NOTE | 2019-07-16 14:18 | WPDGICN ---
Assessment and Plan Assessment and plan (1) Nausea: Code(s): R11.0 - Nausea Status: Acute Assessment and Plan: Patient reports nausea for the last day and a half. Likely related to urinary tract infection that was also identified yesterday. Is also possible that nausea could be related to medications such as antibiotics started for the nausea. There is some concern because of ileus identified 2 weeks ago. This resolved spontaneously. Current obstructive series reveals no indication for this on yesterday's obstructive series. At the present time would suggest treating conservatively. A trial of antacids and Zofran may be of some benefit at this time. If symptoms persist follow-up obstructive series would be indicated in the morning. (2) Morbid obesity: Code(s): E66.01 - Morbid (severe) obesity due to excess calories Status: Acute (3) UTI (urinary tract infection): Code(s): N39.0 - Urinary tract infection, site not specified Status: Acute Assessment and Plan: UTI noted with abnormal UA. This is likely etiology for his current nausea and abdominal discomfort. (4) Diabetes mellitus: Code(s): E11.9 - Type 2 diabetes mellitus without complications Status: Acute (5) Atrial fibrillation: Code(s): I48.91 - Unspecified atrial fibrillation Status: Acute Assessment and Plan: Patient remains on Eliquis because of atrial fibrillation. (6) Critical illness neuropathy: Code(s): G62.81 - Critical illness polyneuropathy Status: Acute GI Consult Note Consult date/time: 07/16/19 14:18 HPI: Hans Gaytan is a 69 year old male I am asked to see at the request of the rehab service. Patient has a history of critical illness myopathy, distant history of atrial fibrillation on Eliquis anticoagulation. Diabetes and obesity. Approximately 2 weeks ago had a bout of nausea and vomiting obstructive series revealed an ileus. This resolved could conservative therapy and required 2 days in the hospital. Patient did well until yesterday over the last 1-1/2 days he has had nausea once again. He did vomit once yesterday. Yesterday he was also identified as having a urinary tract infection and was placed on intravenous antibiotics. Patient has had no further vomiting today. A repeat KUB is unremarkable yesterday. Patient's has continued to have bowel movements. In fact they are somewhat loose. No bleeding has been reported. No fever reported. Review of Systems Review of Systems: All systems reviewed & are unremarkable except as noted in HPI and below PMFSH Past Medical History Medical History Atrial fibrillation Chronic kidney disease Diabetes mellitus Morbid obesity Urinary retention Surgical History Surgical History Status post right foot surgery Family History Family History Father Cancer Father Cancer Mother Chronic obstructive pulmonary disease Social History Social History Social History: Patient is no longer a smoker but quit 37 years ago. Before then he smoked half a pack per day. He does not drink alcohol, do drugs, or smoke marijuana. 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 He would like his to be his surrogate decision maker. He would like to be a full code Smoking packs per day: 1 Smoking cigarettes per day: 20.0 Years smoked: 15 Smoking pack-years: 15.00 Smoking status: Former smoker Tobacco type: cigarettes Second hand tobacco smoke exposure: Yes Alcohol intake: never Substance use: never Substance use type: does not use Gender identity (if verbalized by the patient): Male Spiritual care concerns: No Agree to blood products: Yes Meds Home Medications and Allergies Home Medications Me
--- NOTE | 2019-07-16 15:08 | PC.NURSE ---
Patient is refusing to do therapy today. States I dont feel well . No vomiting today. Had one loose stool today. C/o nausea. IV infusing without difficulty. Talked with and explained GI doctor would see patient today. Patient discharge is on hold right now. Pt. did eat 50% of regular lunch. Call light within reach. will continue to monitor.
[2019-07-16] MEDS: ONDANSETRON HCL ODT 4 MG TABLET PO (16:23)
[2019-07-17 06:00] VITALS: BP 121/79; PULSE 80; RESP 20; TEMP 36.5; O2SAT 93
[2019-07-17] MEDS: SODIUM CHLORIDE 0.9% IV 1,000 ML 80 ML IV CONT ×2 (07:13→21:28)
--- NOTE | 2019-07-17 07:32 | PC.NURSE ---
Dr Mayberry called and status report given. Advised patient states of feeling better this am with no c/o nausea. New orders received. Encouraged patient with continued therapy efforts and increased po intake. Will monitor.
[2019-07-17 07:41] LABS: Hematocrit 44.8 % (42.0-52.0); Hemoglobin 13.9 g/dL (14.0-18.0); Mean Corpuscular Hemoglobin 29.7 pg (26-34); Mean Corpuscular Volume 95.7 fl (80-100); Mean Platelet Volume 9.6 fl (7.4-10.4); Platelet Count Result 210 k/mm3 (150-375); Red Blood Count 4.68 M/mm3 (4.6-6.20); Red Cell Distribution Width 16.1 % (11.5-14.5); White Blood Count 8.7 K/mm3 (4.5-10.0)
[2019-07-17 07:52] LABS: Blood Urea Nitrogen 25 mg/dL (9-20); Calcium 9.3 mg/dL (8.4-10.2); Carbon Dioxide 23 mmol/L (22-30); Chloride 101 mmol/L (98-107); Estimated CRCL calculation 50 ml/min; Estimated Glomerular Filt Rate 43; Glucose 101 mg/dL (75-110); Potassium 3.8 mmol/L (3.4-5.0); Sodium 135 mmol/L (137-145)
[2019-07-17] MEDS: SALMETEROL XINAFOATE 50 MCG DISKUS 1 PUFF INHALATION ×2 (09:21→20:41)
--- NOTE | 2019-07-17 09:35 | WPDGIPROGNO ---
Progress Note: A&P Additional Plan Patient feels much improved today. No nausea report today. Physical exam reveals him to be alert. Abdomen is obese. Bowel sounds are present. Abdomen is soft and nontender. Impression 1. Resolved nausea. I suspect this is related to his urinary tract infection. No signs of ileus by KUB performed recently. 2. UTI. Patient now on antibiotics. Suspect this was etiology for his nausea yesterday. 3. 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 Clinically improving. Hopefully discharge soon. Subjective Date/time seen: 07/17/19 09:35 Objective Data Vital Signs Vital Signs: Vital Signs - 24 hr 07/16/19 10:00 07/16/19 11:35 07/16/19 14:00 Temperature 36.3 C L Pulse Rate 60 84 87 Respiratory Rate 17 Blood Pressure 101/76 136/73 Pulse Oximetry 93 94 07/16/19 21:27 07/16/19 22:00 07/16/19 22:15 Temperature 36.7 C Pulse Rate 80 85 88 Respiratory Rate 19 18 Blood Pressure 126/75 Pulse Oximetry 95 93 07/17/19 06:00 Temperature 36.5 C Pulse Rate 80 Respiratory Rate 20 Blood Pressure 121/79 Pulse Oximetry 93 Intake/Output Intake/Output: Intake & Output 07/14/19 07/15/19 07/16/19 07/17/19 23:59 23:59 23:59 23:59 Intake Total 8948 766 9944 2639 Output Total 2650 1800 1600 Balance -1570 -1220 3620 2639 Meds/Results Medications: Active Medications Generic Name Dose Route Start Last Admin Trade Name Israelq PRN Reason Stop Dose Admin Acetaminophen 650 mg 07/01/19 17:00 07/16/19 17:38 Tylenol Tablet PO 650 mg TID LAURA Administration Al Hydrox/Mg Hydrox/Simethicone 30 ml 07/16/19 14:26 Mylanta PO Q6H PRN Indigestion Albuterol 2.5 mg 07/01/19 16:11 Albuterol Sulf Neb 2.5mg/0.5ml NEBULIZE Q6H PRN Shortness Of Breath Or Wheezing Apixaban 2.5 mg 07/01/19 17:00 07/16/19 17:38 Eliquis PO 2.5 mg BID LAURA Administration Bumetanide 1 mg 07/01/19 17:00 07/16/19 17:38 Bumex Po PO 1 mg BID LAURA Administration Digoxin 125 mcg 07/02/19 09:00 07/16/19 10:00 Lanoxin Tab PO 125 mcg DAILY LAURA Administration Sodium Chloride 1,000 mls @ 80 mls/hr 07/15/19 18:15 07/17/19 07:13 Normal Saline Iv IV CONT 80 mls/hr .[id number] LAURA Administration Ceftriaxone Sodium/Dextrose 1 gm in 50 mls @ 100 mls/hr 07/17/19 09:00 07/17/19 08:26 Rocephin 1 Gm/D5w 50 Ml IVPB Infused Q24H LAURA Infusion Metoprolol Tartrate 50 mg 07/01/19 21:00 07/16/19 21:27 Lopressor PO 50 mg Q12HR LAURA Administration Miconazole Nitrate 1 applic 07/02/19 10:00 07/16/19 21:27 Miconazole Nitrate 2% Cream TOPICAL 1 applic Q12HR LAURA Administration Ondansetron HCl 4 mg 07/15/19 18:12 Zofran Inj IV PUSH Q4H PRN Nausea And Vomiting Pantoprazole Sodium 40 mg 07/01/19 21:00 07/16/19 21:27 Protonix PO 40 mg Q12HR LAURA Administration Polyethylene Glycol 17 gm 07/02/19 09:00 07/16/19 10:00 Miralax PO 17 gm DAILY LAURA Administration Potassium Chloride 20 meq 07/01/19 17:00 07/16/19 17:37 Kcl Tablet PO 20 meq TID LAURA Administration Salmeterol Xinafoate 1 puff 07/09/19 13:00 07/17/19 09:21 Serevent Diskus INHALATION 1 puff Q12HRT LAURA Administration Simethicone 125 mg 07/01/19 17:00 07/16/19 17:37 Phazyme PO 125 mg TID LAURA Administration Tiotropium [place] 1 cap 07/09/19 09:00 07/17/19 09:21 Spiriva INHALATION 1 cap QAM LAURA Administration Tolnaftate 1 applic 07/02/19 10:00 07/16/19 21:28 Tolnaftate 1% Powder TOPICAL 1 applic Q12HR LAURA Administration Radiology Results: ITS Impressions Venous Doppler Study 07/12/19 13:48 IMPRESSION: 1. No deep venous thrombosis. Chest X-Ray 07/15/19 19:09 IMPRESSION: No acute cardiopulmonary findings. Abdomen X-Ray 07/15/19 19:14 IMPRESSION: Unremarkable abdomen x-ray exam. Labs Labs: Laboratory Results - last 24 hr
[2019-07-17 09:40] VITALS: PULSE 80; RESP 20; O2SAT 93
[2019-07-17] MEDS: SIMETHICONE 125 MG CHEW TAB PO ×3 (09:47→17:06)
[2019-07-17] MEDS: ACETAMINOPHEN 325 MG TABLET 650 MG PO ×3 (09:47→17:04)
[2019-07-17 09:48] VITALS: PULSE 80
[2019-07-17] MEDS: MICONAZOLE NITRATE 2% CREAM 30 GM TUBE 1 APPLIC TOPICAL ×2 (09:48→21:31)
[2019-07-17] MEDS: DIGOXIN TAB 125 MCG TABLET PO (09:48)
[2019-07-17] MEDS: APIXABAN 2.5 MG TABLET PO ×2 (09:48→17:04)
[2019-07-17] MEDS: PANTOPRAZOLE 40 MG TABLET PO ×2 (09:48→21:31)
[2019-07-17] MEDS: BUMETANIDE 1 MG TABLET PO ×2 (09:48→17:04)
[2019-07-17] MEDS: METOPROLOL TARTRATE 50 MG TAB PO ×2 (09:48→21:31)
[2019-07-17] MEDS: POTASSIUM CHLORIDE 10 MEQ TABLET.ER 20 MEQ PO ×3 (09:49→17:05)
[2019-07-17] MEDS: TOLNAFTATE 1% POWDER 45 GM BTL 1 APPLIC TOPICAL ×2 (09:49→21:31)
--- NOTE | 2019-07-17 09:52 | WPDNEURORHBP ---
Subjective Date/time seen: 07/17/19 09:52 Interval history: this 69-year-old gentleman is here from rather prolonged illness which caused him to have critical illness myopathy and peripheral neuropathy his discharge was delayed because of urinary tract infection of which is times enterococcus he has already received the 3 dosages of the IV Rocephin I discussed this with our pharmacist and because of the fact that he is having indwelling Mccarty catheter which we have not been able to discontinue because of urinary retention he recommended I am in the pharmacist to put him on Keflex 5 milligram twice a day till he sees the primary care physician and or I urologist the patient denies any headache nausea vomiting abdominal main diarrhea vomiting fever chills sore throat Review of Systems Review of Systems: All systems reviewed & are unremarkable except as noted in HPI and below Functional Status Ambulation Ability Ability to Ambulate 10 Feet: Standby Assistance Ability to Ambulate 50 Feet With 2 Turns: Standby Assistance Ability to Ambulate 150 Feet: Standby Assistance Ambulation Assistive Devices: Walker, Wheeled Transfers Ability Ability to Transfer In/Out of Chair: Minimum Assistance X 1 Exam Const: General: comfortable and no acute distress HENMT: General nose exam: Normal nares present Mouth: Yes moist mucous membranes Eyes: General: appearance normal, both eyes and all related structures Neck: Neck: supple and no JVD Resp: Effort & Inspection: normal respiratory effort Auscultation: clear to auscultation bilaterally Cardio: Rate: regular rate Rhythm: regular rhythm GI: GI Palp: Yes Soft to palpation Auscultation: normal bowel sounds Urinary Catheter: Urinary Catheter: patent and draining and other ( patient's urine from the gross inspection looks clean) Back/Spine/Pelvis: Other: nontender looks good Skin: General skin exam: normal color and no rashes or lesions noted Neuro: Other: patient is awake and alert well oriented not any distress is smiling and wants to go home his weakness has significantly improved and is overall attitude and relatively fatigued and tiredness attitude has been improved is back to his usual self as he was 3 days ago when the UTI afflicted him Extrem: General: normal to inspection Psych: Mental Status: mental status grossly normal Objective Data Vital Signs Vital Signs: Vital Signs - 24 hr 07/16/19 10:00 07/16/19 11:35 07/16/19 14:00 Temperature 36.3 C L Pulse Rate 60 84 87 Respiratory Rate 17 Blood Pressure 101/76 136/73 Pulse Oximetry 93 94 07/16/19 21:27 07/16/19 22:00 07/16/19 22:15 Temperature 36.7 C Pulse Rate 80 85 88 Respiratory Rate 19 18 Blood Pressure 126/75 Pulse Oximetry 95 93 07/17/19 06:00 07/17/19 09:48 Temperature 36.5 C Pulse Rate 80 80 Respiratory Rate 20 Blood Pressure 121/79 Pulse Oximetry 93 Intake/Output Intake/Output: Intake & Output 07/14/19 07/15/19 07/16/19 07/17/19 23:59 23:59 23:59 23:59 Intake Total 1388.437.9511 2639 Output Total 2657 9694 1600 Balance -1570 -1220 3620 2639 Meds/Results Medications: Active Medications Generic Name Dose Route Start Last Admin Trade Name Freq PRN Reason Stop Dose Admin Acetaminophen 650 mg 07/01/19 17:00 07/17/19 09:47 Tylenol Tablet PO 650 mg TID LAURA Administration Al Hydrox/Mg Hydrox/Simethicone 30 ml 07/16/19 14:26 Mylanta PO Q6H PRN Indigestion Albuterol 2.5 mg 07/01/19 16:11 Albuterol Sulf Neb 2.5mg/0.5ml NEBULIZE Q6H PRN Shortness Of Breath Or Wheezing Apixaban 2.5 mg 07/01/19 17:00 07/17/19 09:48 Eliquis PO 2.5 mg BID LAURA Administration Bumetanide 1 mg 07/01/19 17:00 07/17/19 09:48 Bumex Po PO 1 mg BID LAURA Administration Digoxin 125 mcg 07/02/19 09:00 07/17/19 09:48 Lanoxin Tab PO 125 mcg DAILY LAURA Administration Sodium Chloride 1,000 mls @ 80 mls/hr 07/15/19 18:15 06
[2019-07-17] MEDS: ONDANSETRON INJ 4 MG/2 ML VIAL IV PUSH ×2 (12:56→17:03)
--- NOTE | 2019-07-17 13:25 | PCDIET ---
Nutrition Follow-Up Complete: Nutrition Diagnosis: Decreased sodium needs related to CHF as evidenced by EMR. Nutrition Goal: Patient to consume 75% of meals or greater. Goal met. Patient consuming 100% of most meals on heart healthy diet. Last recorded weight is 132.8 kg. Recommend obtaining new weight. Bowel Motility: +BM today. Labs Reviewed: BUN (25), Cr (1.6), Na (135) Meds Noted: Albuterol, Bumex, Rocephin, Protonix, Miralax, KCl, NS at 80mL/hr Additional Notes: No documented skin breakdown. Will continue to monitor with same goal. Nutrition Monitoring and Evaluation: Follow up every 7 days.
[2019-07-17 14:31] VITALS: BP 144/94; PULSE 83; RESP 22; TEMP 36.4; O2SAT 93
--- NOTE | 2019-07-17 14:40 | PCOTNOTE ---
Attempted to see Patient to finish afternoon treatment session minutes. Patient still not feeling well and refused to participate in any therapy this afternoon. Patient did not receive full minutes this date.
--- NOTE | 2019-07-17 15:20 | PCPTNOTE ---
Patient refused treatment this session due to feeling nauseated. CONDUCTOR FREIGHT attempted twice this afternoon however patient continued to report nauseated feeling. CONDUCTOR FREIGHT informed R.N. Patient did not receive full PT minutes this date. Will continue per POC.
--- NOTE | 2019-07-17 16:05 | PC.NURSE ---
Called Dr. Evans regarding patient's diarrhea (x3) and emesis (x3) after lunch today. Dr. Evans is familiar with patient and stated he will order tests to be performed this date or tomorrow morning whichever is first available.
[2019-07-17 17:02] LABS: Glucose Point of Care 109 (65-105)
[2019-07-17 21:31] VITALS: PULSE 70
[2019-07-17 22:00] VITALS: BP 116/74; PULSE 98; RESP 18; TEMP 36.2; O2SAT 97
[2019-07-18 06:00] VITALS: BP 96/52; PULSE 76; RESP 20; TEMP 36.4; O2SAT 96
[2019-07-18] MEDS: SALMETEROL XINAFOATE 50 MCG DISKUS 1 PUFF INHALATION ×2 (08:03→20:13)
[2019-07-18] MEDS: TOLNAFTATE 1% POWDER 45 GM BTL 1 APPLIC TOPICAL ×2 (08:27→20:08)
[2019-07-18] MEDS: MICONAZOLE NITRATE 2% CREAM 30 GM TUBE 1 APPLIC TOPICAL ×2 (08:27→20:08)
[2019-07-18] MEDS: SODIUM CHLORIDE 0.9% IV 1,000 ML 80 ML IV CONT (08:28)
[2019-07-18] MEDS: ACETAMINOPHEN 325 MG TABLET 650 MG PO (08:29)
[2019-07-18 08:30] VITALS: PULSE 76
[2019-07-18] MEDS: BUMETANIDE 1 MG TABLET PO (08:30)
[2019-07-18] MEDS: POTASSIUM CHLORIDE 10 MEQ TABLET.ER 20 MEQ PO (08:30)
[2019-07-18] MEDS: SIMETHICONE 125 MG CHEW TAB PO ×2 (08:30→12:56)
[2019-07-18] MEDS: PANTOPRAZOLE 40 MG TABLET PO ×2 (08:30→20:08)
[2019-07-18] MEDS: DIGOXIN TAB 125 MCG TABLET PO (08:30)
[2019-07-18] MEDS: APIXABAN 2.5 MG TABLET PO ×2 (08:30→20:09)
[2019-07-18 08:31] VITALS: PULSE 76
[2019-07-18] MEDS: METOPROLOL TARTRATE 50 MG TAB PO ×2 (08:31→20:07)
[2019-07-18] MEDS: ONDANSETRON INJ 4 MG/2 ML VIAL IV PUSH (08:33)
--- NOTE | 2019-07-18 09:09 | WPDGIPROGNO ---
Progress Note: A&P Additional Plan Patient alert and comfortable this morning. He denies any nausea this morning. Feels good. He did have emesis last evening. Has limited to liquid diet subsequently. Physical exam reveals him to be alert. Comfortable at rest. Vital signs are stable. Lungs are clear. Heart without murmur. Abdomen is obese. Soft. Nontender no hepatosplenomegaly. Normal bowel sounds. Impression 1. Resolved intermittent nausea. I suspect this is related to his urinary tract infection. Patient should have confirmation that infection has healed after course of antibiotics. He may benefit from soft to liquid diet until his nausea has completely resolved. [place] diet advised the advised at this time. I see no contraindication to discharge. If nausea vomiting persist elective EGD can be performed as an outpatient Subjective Date/time seen: 07/18/19 09:09 Objective Data Vital Signs Vital Signs: Vital Signs - 24 hr 07/17/19 09:40 07/17/19 09:48 07/17/19 14:31 Temperature 36.4 C L Pulse Rate 80 80 83 Respiratory Rate 20 22 H Blood Pressure 144/94 H Pulse Oximetry 93 93 07/17/19 21:31 07/17/19 22:00 07/18/19 06:00 Temperature 36.2 C L 36.4 C Pulse Rate 70 98 76 Respiratory Rate 18 20 Blood Pressure 116/74 96/52 L Pulse Oximetry 97 96 07/18/19 08:30 07/18/19 08:31 Temperature Pulse Rate 76 76 Respiratory Rate Blood Pressure Pulse Oximetry Intake/Output Intake/Output: Intake & Output 07/15/19 07/16/19 07/17/19 07/18/19 23:59 23:59 23:59 23:59 Intake Total 580 5220 3879 2348 Output Total 1800 1600 Balance -1220 3620 3879 2348 Meds/Results Medications: Active Medications Generic Name Dose Route Start Last Admin Trade Name Freq PRN Reason Stop Dose Admin Acetaminophen 650 mg 07/01/19 17:00 07/18/19 08:29 Tylenol Tablet PO 650 mg TID LAURA Administration Al Hydrox/Mg Hydrox/Simethicone 30 ml 07/16/19 14:26 Mylanta PO Q6H PRN Indigestion Albuterol 2.5 mg 07/01/19 16:11 Albuterol Sulf Neb 2.5mg/0.5ml NEBULIZE Q6H PRN Shortness Of Breath Or Wheezing Apixaban 2.5 mg 07/01/19 17:00 07/18/19 08:30 Eliquis PO 2.5 mg BID [facility] Administration Bumetanide 1 mg 07/01/19 17:00 07/18/19 08:30 Bumex Po PO 1 mg BID [facility] Administration Digoxin 125 mcg 07/02/19 09:00 07/18/19 08:30 Lanoxin Tab PO 125 mcg DAILY [facility] Administration Sodium Chloride 1,000 mls @ 80 mls/hr 07/15/19 18:15 07/18/19 08:28 Normal Saline Iv IV CONT 80 mls/hr .[id number] [facility] Administration Ceftriaxone Sodium/Dextrose 1 gm in 50 mls @ 100 mls/hr 07/17/19 09:00 07/18/19 08:29 Rocephin 1 Gm/D5w 50 Ml IVPB 100 mls/hr Q24H LAURA Administration Metoprolol Tartrate 50 mg 07/01/19 21:00 07/18/19 08:31 Lopressor PO 50 mg Q12HR [facility] Administration Miconazole Nitrate 1 applic 07/02/19 10:00 07/18/19 08:27 Miconazole Nitrate 2% Cream TOPICAL 1 applic Q12HR [facility] Administration Ondansetron HCl 4 mg 07/15/19 18:12 07/18/19 08:33 Zofran Inj IV PUSH 4 mg Q4H PRN Administration Nausea And Vomiting Pantoprazole Sodium 40 mg 07/01/19 21:00 07/18/19 08:30 Protonix PO 40 mg Q12HR [facility] Administration Polyethylene Glycol 17 gm 07/02/19 09:00 07/18/19 08:28 Miralax PO Not Given DAILY [facility] Potassium Chloride 20 meq 07/01/19 17:00 07/18/19 08:30 Kcl Tablet PO 20 meq TID [facility] Administration Salmeterol Xinafoate 1 puff 07/09/19 13:00 07/18/19 08:03 Serevent Diskus INHALATION 1 puff Q12HRT [facility] Administration Simethicone 125 mg 07/01/19 17:00 07/18/19 08:30 Phazyme PO 125 mg TID [facility] Administration Tiotropium [place] 1 cap 07/09/19 09:00 07/18/19 08:03 Spiriva INHALATION 1 cap QAM [facility]URA Administration Tolnaftate 1 applic 07/02/19 10:00 07/18/19 08:27 Tolnaftate 1% Powder TOPICAL 1 applic Q12HR [facility] Administration
--- NOTE | 2019-07-18 12:52 | WPDNEURORHBP ---
Subjective Date/time seen: 07/18/19 12:53 Interval history: this 69-year-old is here because of having had significant critical illness myopathy and significant peripheral neuropathy has done well however on July 17 he was tired and fatigued and do want to much of therapy otherwise he denies any headache nausea vomiting chest pain or shortness of breath Review of Systems Review of Systems: All systems reviewed & are unremarkable except as noted in HPI and below Functional Status Ambulation Ability Ability to Ambulate 10 Feet: Standby Assistance Ability to Ambulate 50 Feet With 2 Turns: Standby Assistance Ability to Ambulate 150 Feet: Standby Assistance Ambulation Assistive Devices: Walker, Wheeled Transfers Ability Ability to Transfer In/Out of Chair: Independent Exam Const: General: comfortable and no acute distress HENMT: General nose exam: Normal nares present Mouth: Yes moist mucous membranes Eyes: General: appearance normal, both eyes and all related structures Neck: Neck: supple and no JVD Resp: Effort & Inspection: normal respiratory effort Auscultation: clear to auscultation bilaterally Cardio: Rate: regular rate Rhythm: regular rhythm GI: GI Palp: Yes Soft to palpation Auscultation: normal bowel sounds Urinary Catheter: Urinary Catheter: patent and draining Skin: General skin exam: normal color and no rashes or lesions noted Neuro: Other: patient is awake and alert well oriented essentially a nonfocal examination but has generalized weakness evidence of peripheral neuropathy and evidence of the myopathy and he is kind of regressed in the past 24 hours so without being febrile and I am not really sure what's going on with him Extrem: General: normal to inspection Psych: Mental Status: mental status grossly normal Objective Data Vital Signs Vital Signs: Vital Signs - 24 hr 07/18/19 14:00 07/18/19 20:07 07/18/19 22:00 Temperature 36.6 C 36.9 C Pulse Rate 80 80 87 Respiratory Rate 18 18 Blood Pressure 101/60 108/46 L Pulse Oximetry 98 95 07/19/19 06:00 07/19/19 10:23 07/19/19 10:24 Temperature 36.9 C Pulse Rate 78 78 78 Respiratory Rate 18 Blood Pressure 100/63 Pulse Oximetry 95 Intake/Output Intake/Output: Intake & Output 07/16/19 07/17/19 07/18/19 07/19/19 23:59 23:59 23:59 23:59 Intake Total 9967 7638 5018 1339 Output Total 1600 Balance 3620 9829 2968 0825 Meds/Results Medications: Active Medications Generic Name Dose Route Start Last Admin Trade Name Freq PRN Reason Stop Dose Admin Acetaminophen 650 mg 07/01/19 17:00 07/19/19 10:22 Tylenol Tablet PO 650 mg TID LAURA Administration Al Hydrox/Mg Hydrox/Simethicone 30 ml 07/16/19 14:26 Mylanta PO Q6H PRN Indigestion Albuterol 2.5 mg 07/01/19 16:11 Albuterol Sulf Neb 2.5mg/0.5ml NEBULIZE Q6H PRN Shortness Of Breath Or Wheezing Apixaban 2.5 mg 07/01/19 17:00 07/19/19 10:23 Eliquis PO 2.5 mg BID LAURA Administration Benzocaine 1 lozenge 07/18/19 14:14 07/19/19 04:25 Chloraseptic Lozenge PO 1 lozenge PRN PRN Administration Sore Throat Bumetanide 1 mg 07/01/19 17:00 07/19/19 10:23 Bumex Po PO 1 mg BID LAURA Administration Digoxin 125 mcg 07/02/19 09:00 07/19/19 10:23 Lanoxin Tab PO 125 mcg DAILY LAURA Administration Dextrose/Sodium Chloride 1,000 mls @ 80 mls/hr 07/18/19 18:10 07/18/19 20:05 Dextrose 5% Sodium Chloride 0.45% IV CONT 80 mls/hr .[id number] LAURA Administration Linezolid 600 mg 07/18/19 21:00 07/19/19 10:24 Zyvox PO 600 mg Q12HR LAURA Administration Metoprolol Tartrate 50 mg 07/01/19 21:00 07/19/19 10:24 Lopressor PO 50 mg Q12HR LAURA Administration Miconazole Nitrate 1 applic 07/02/19 10:00 07/19/19 10:26 Miconazole Nitrate 2% Cream TOPICAL 1 applic Q12HR LAURA Administration Ondansetron HCl 4 mg 07/15/19 18:12 07/18/19 08:33 Zofran Inj IV PUSH 4 mg
[2019-07-18 14:00] VITALS: BP 101/60; PULSE 80; RESP 18; TEMP 36.6; O2SAT 98
[2019-07-18] MEDS: BENZOCAINE/MENTHOL (*BKC) 18 EA LOZENGE 1 LOZENGE PO ×2 (17:50→21:35)
--- NOTE | 2019-07-18 18:03 | PC.NURSE ---
pt refused to take po meds at this time. Pt stated he doesn't feel good at this time. MD updated and requested apixaban be given later. also received n.o to change fluids to D5 1/2 NS at 80/hr. will continue to monitor.
--- NOTE | 2019-07-18 18:12 | PC.NURSE ---
iv left hand discontinued, flow had stopped and unable to flush. no redness or edema, no pain associated with site.
[2019-07-18] MEDS: DEXTROSE 5%/0.45% SOD CHL 1,000 ML 80 ML IV CONT (20:05)
[2019-07-18 20:07] VITALS: PULSE 80
[2019-07-18] MEDS: LINEZOLID 600 MG TABLET PO (20:07)
[2019-07-18 22:00] VITALS: BP 108/46; PULSE 87; RESP 18; TEMP 36.9; O2SAT 95
[2019-07-19] MEDS: BENZOCAINE/MENTHOL (*BKC) 18 EA LOZENGE 1 LOZENGE PO (04:25)
[2019-07-19 05:39] LABS: Basophils Percent Auto 0.3 % (0.2-1.2); Eosinophils Absolute Auto 0.2 K/mm3 (0-0.3); Eosinophils Percent Auto 2.7 % (0-4.4); Hematocrit 41.1 % (42.0-52.0); Hemoglobin 12.9 g/dL (14.0-18.0); Immature Granulocyte Absolute 0.06 K/mm3 (0.00-0.031); Immature Granulocyte Percent A 0.7 % (0-0.5); Lymphocytes Absolute Auto 2.34 K/mm3 (0.9-3.2); Lymphocytes Percent Auto 26.5 % (18.3-44.2); Mean Corpuscular HGB Conc 31.4 g/dl (32-36); Mean Corpuscular Hemoglobin 30.3 pg (26-34); Mean Corpuscular Volume 96.5 fl (80-100); Monocytes Absolute Auto 1.1 K/mm3 (0.1-0.6); Monocytes Percent Auto 12.3 % (2.6-8.5); Neutrophils Absolute Auto 5.1 K/mm3 (1.3-6.7); Neutrophils Percent Auto 57.5 % (45.5-73.1); Platelet Count Result 215 k/mm3 (150-375); Red Blood Count 4.26 M/mm3 (4.6-6.20); Red Cell Distribution Width 15.9 % (11.5-14.5); White Blood Count 8.8 K/mm3 (4.5-10.0)
[2019-07-19 06:00] VITALS: BP 100/63; PULSE 78; RESP 18; TEMP 36.9; O2SAT 95
[2019-07-19 06:02] LABS: Blood Urea Nitrogen 17 mg/dL (9-20); Calcium 9.1 mg/dL (8.4-10.2); Carbon Dioxide 16 mmol/L (22-30); Chloride 106 mmol/L (98-107); Estimated CRCL calculation 50 ml/min; Estimated Glomerular Filt Rate 43; Glucose 101 mg/dL (75-110); Potassium 3.4 mmol/L (3.4-5.0); Sodium 133 mmol/L (137-145)
[2019-07-19] MEDS: SALMETEROL XINAFOATE 50 MCG DISKUS 1 PUFF INHALATION (08:50)
[2019-07-19] MEDS: ACETAMINOPHEN 325 MG TABLET 650 MG PO ×2 (10:22→15:32)
[2019-07-19 10:23] VITALS: PULSE 78
[2019-07-19] MEDS: DIGOXIN TAB 125 MCG TABLET PO (10:23)
[2019-07-19] MEDS: BUMETANIDE 1 MG TABLET PO (10:23)
[2019-07-19] MEDS: APIXABAN 2.5 MG TABLET PO (10:23)
[2019-07-19 10:24] VITALS: PULSE 78
[2019-07-19] MEDS: METOPROLOL TARTRATE 50 MG TAB PO (10:24)
[2019-07-19] MEDS: LINEZOLID 600 MG TABLET PO (10:24)
[2019-07-19] MEDS: PANTOPRAZOLE 40 MG TABLET PO (10:24)
[2019-07-19] MEDS: POTASSIUM CHLORIDE 10 MEQ TABLET.ER 20 MEQ PO ×2 (10:25→15:33)
[2019-07-19] MEDS: SIMETHICONE 125 MG CHEW TAB PO ×2 (10:25→15:33)
[2019-07-19] MEDS: polyethylene glycoL 3350 17 GM POWD.PACK PO (10:25)
[2019-07-19] MEDS: TOLNAFTATE 1% POWDER 45 GM BTL 1 APPLIC TOPICAL (10:25)
[2019-07-19] MEDS: MICONAZOLE NITRATE 2% CREAM 30 GM TUBE 1 APPLIC TOPICAL (10:26)
[2019-07-19 12:26] LABS: Hematocrit 40.1 % (42.0-52.0); Hemoglobin 12.7 g/dL (14.0-18.0); Mean Corpuscular HGB Conc 31.7 g/dl (32-36); Mean Corpuscular Hemoglobin 30.2 pg (26-34); Mean Corpuscular Volume 95.5 fl (80-100); Mean Platelet Volume 9.4 fl (7.4-10.4); Platelet Count Result 207 k/mm3 (150-375); Red Cell Distribution Width 15.9 % (11.5-14.5); White Blood Count 7.9 K/mm3 (4.5-10.0)
--- NOTE | 2019-07-19 12:37 | WPDGIPROGNO ---
Progress Note: A&P Additional Plan patient appears comfortable this morning. Nausea has resolved at this time. Complains of mild throat discomfort which is a new complaint tod ay. Physical exam reveals him to be alert. Abdomen is obese. Bowel sounds are present soft and nontender. Impression 1. UTI. This likely explains his nausea. Plan is for supportive care continue treatment for urinary tract infection no invasive GI testing planned at this time. Subjective Date/time seen: 07/19/19 12:37 Objective Data Vital Signs Vital Signs: Vital Signs - 24 hr 07/18/19 14:00 07/18/19 20:07 07/18/19 22:00 Temperature 36.6 C 36.9 C Pulse Rate 80 80 87 Respiratory Rate 18 18 Blood Pressure 101/60 108/46 L Pulse Oximetry 98 95 07/19/19 06:00 07/19/19 10:23 07/19/19 10:24 Temperature 36.9 C Pulse Rate 78 78 78 Respiratory Rate 18 Blood Pressure 100/63 Pulse Oximetry 95 Intake/Output Intake/Output: Intake & Output 07/16/19 07/17/19 07/18/19 07/19/19 23:59 23:59 23:59 23:59 Intake Total 5220 3879 3278 1339 Output Total 1600 Balance 3620 3879 3278 1339 Meds/Results Medications: Active Medications Generic Name Dose Route Start Last Admin Trade Name Freq PRN Reason Stop Dose Admin Acetaminophen 650 mg 07/01/19 17:00 07/19/19 10:22 Tylenol Tablet PO 650 mg TID LAURA Administration Al Hydrox/Mg Hydrox/Simethicone 30 ml 07/16/19 14:26 Mylanta PO Q6H PRN Indigestion Albuterol 2.5 mg 07/01/19 16:11 Albuterol Sulf Neb 2.5mg/0.5ml NEBULIZE Q6H PRN Shortness Of Breath Or Wheezing Apixaban 2.5 mg 07/01/19 17:00 07/19/19 10:23 Eliquis PO 2.5 mg BID LAURA Administration Benzocaine 1 lozenge 07/18/19 14:14 07/19/19 04:25 Chloraseptic Lozenge PO 1 lozenge PRN PRN Administration Sore Throat Bumetanide 1 mg 07/01/19 17:00 07/19/19 10:23 Bumex Po PO 1 mg BID LAURA Administration Digoxin 125 mcg 07/02/19 09:00 07/19/19 10:23 Lanoxin Tab PO 125 mcg DAILY LAURA Administration Dextrose/Sodium Chloride 1,000 mls @ 80 mls/hr 07/18/19 18:10 07/18/19 20:05 Dextrose 5% Sodium Chloride 0.45% IV CONT 80 mls/hr .[id number] LAURA Administration Linezolid 600 mg 07/18/19 21:00 07/19/19 10:24 Zyvox PO 600 mg Q12HR LAURA Administration Metoprolol Tartrate 50 mg 07/01/19 21:00 07/19/19 10:24 Lopressor PO 50 mg Q12HR LAURA Administration Miconazole Nitrate 1 applic 07/02/19 10:00 07/19/19 10:26 Miconazole Nitrate 2% Cream TOPICAL 1 applic Q12HR LAURA Administration Ondansetron HCl 4 mg 07/15/19 18:12 07/18/19 08:33 Zofran Inj IV PUSH 4 mg Q4H PRN Administration Nausea And Vomiting Pantoprazole Sodium 40 mg 07/01/19 21:00 07/19/19 10:24 Protonix PO 40 mg Q12HR LAURA Administration Polyethylene Glycol 17 gm 07/02/19 09:00 07/19/19 10:25 Miralax PO 17 gm DAILY LAURA Administration Potassium Chloride 20 meq 07/01/19 17:00 07/19/19 10:25 Kcl Tablet PO 20 meq TID LAURA Administration Salmeterol Xinafoate 1 puff 07/09/19 13:00 07/19/19 08:50 Serevent Diskus INHALATION 1 puff Q12HRT [facility] Administration Simethicone 125 mg 07/01/19 17:00 07/19/19 10:25 Phazyme PO 125 mg TID [facility] Administration Tiotropium [place] 1 cap 07/09/19 09:00 07/19/19 08:50 Spiriva INHALATION 1 cap QAM [facility] Administration Tolnaftate 1 applic 07/02/19 10:00 07/19/19 10:25 Tolnaftate 1% Powder TOPICAL 1 applic Q12HR LAURA Administration Radiology Results: ITS Impressions Venous Doppler Study 07/12/19 13:48 IMPRESSION: 1. No deep venous thrombosis. Chest X-Ray 07/15/19 19:09 IMPRESSION: No acute cardiopulmonary findings. Abdomen X-Ray 07/15/19 19:14 IMPRESSION: Unremarkable abdomen x-ray exam. Labs Labs: Laboratory Results - last 24 hr 07/19/19 07/19/19 07/19/19 04:28 04:28 12:11 WBC
[2019-07-19 12:43] LABS: Blood Urea Nitrogen 15 mg/dL (9-20); Calcium 8.9 mg/dL (8.4-10.2); Carbon Dioxide 16 mmol/L (22-30); Chloride 105 mmol/L (98-107); Estimated CRCL calculation 53 ml/min; Estimated Glomerular Filt Rate 46; Glucose 108 mg/dL (75-110); Potassium 3.3 mmol/L (3.4-5.0); Sodium 132 mmol/L (137-145)
[2019-07-19 14:00] VITALS: BP 97/70; PULSE 84; RESP 20; TEMP 36.4; O2SAT 96
--- NOTE | 2019-07-20 15:58 | PC.NURSE ---
Pt called stating medications at [facility] pharmacy was over 1000.00. She stated they typically use the [facility] pharmacy in [place]. Pharmacy was updated and scripts resent to the [facility] pharmacy in [facility]. Pt was updated that scripts were sent to the correct pharmacy.
--- NOTE | 2019-07-24 10:29 | PM.DS ---
DS: Admitting Diagnosis Admitting Diagnosis Admitting Diagnosis: Critical illness myopathy DS: Discharge Diagnosis Discharge Diagnosis (1) UTI (urinary tract infection): Code(s): N39.0 - Urinary tract infection, site not specified Status: Acute (2) Nausea: Code(s): R11.0 - Nausea Status: Acute (3) Abdominal pain: Code(s): R10.9 - Unspecified abdominal pain Status: Acute (4) Urinary retention: Code(s): R33.9 - Retention of urine, unspecified Status: Acute (5) PIPE (acute kidney injury): Code(s): N17.9 - Acute kidney failure, unspecified Status: Acute (6) Chronic respiratory failure with hypoxia: Code(s): J96.11 - Chronic respiratory failure with hypoxia Status: Acute (7) Leukocytosis: Code(s): D72.829 - Elevated white blood cell count, unspecified Status: Acute (8) SBO (small bowel obstruction): Code(s): K56.609 - Unspecified intestinal obstruction, unspecified as to partial versus complete obstruction Status: Acute (9) Atrial fibrillation: Code(s): I48.91 - Unspecified atrial fibrillation Status: Acute (10) Ileus: Code(s): K56.7 - Ileus, unspecified Status: Acute (11) Leukocytosis: Code(s): D72.829 - Elevated white blood cell count, unspecified Status: Acute (12) UTI (urinary tract infection): Code(s): N39.0 - Urinary tract infection, site not specified Status: Acute (13) Morbid obesity: Code(s): E66.01 - Morbid (severe) obesity due to excess calories Status: Acute (14) Chronic kidney disease: Code(s): N18.9 - Chronic kidney disease, unspecified Status: Acute (15) Diabetes mellitus: Code(s): E11.9 - Type 2 diabetes mellitus without complications Status: Acute (16) Critical illness neuropathy: Code(s): G62.81 - Critical illness polyneuropathy Status: Acute (17) Critical illness myopathy: Code(s): G72.81 - Critical illness myopathy Status: Acute DS: Summary Hospital Course Reason for hospitalization: the patient was admitted with the main diagnosis of critical illness myopathy and critical illness neuropathy and during the initial rehab hospitalization he had a little setback and had to be transferred on the acute medical floor because of the respiratory issues and he came back and did fairly well received the physical therapy of compression therapy and gait training along with the medical management he also had a indwelling catheter which was the cause of his recurrent UTI for which consultations have been obtained likewise the consultation was obtained from the concrete bucket loader from his nausea who felt to the patient nausea was related to a urinary tract infection in infected has resolved by the time the patient had left the hospital the details are available in my initial history and physical examination most of the issues particularly the respiratory failure the acute kidney injury and ileus and small-bowel obstruction for which she was moved to the other floor had resolved by the time he came back the 2nd time around to our rehab floor please refer to the acute medical floor chart for the visits between the 1st 1 on the acute rehab and the 1 for which this discharge summary is being completed Hospital Course: during the course of hospitalization the patient see the medical treatment along with the help of the concrete bucket loader and the urologist and the bottle sorter and the other physician on the hospitalist he was able to achieved the following independent measures eating independent oral hygiene independent toileting supervision bathing partial assistance upper body dressing independent lower body dressing supervision foot where supervision rolling in bed independent sitting to lying independent lying to sitting independent sit to stand supervision chair transfers supervision toilet transfers supervisio
== END 2019-07-19 15:20 | disposition home health service (06) | DRG 92 ==
PROVIDERS: Admitting Provider Psychiatry & Neurology Neurology; Visit Provider Psychiatry & Neurology Neurology
DX: G72.81 Critical illness myopathy (principal); M86.171 Other acute osteomyelitis, right ankle and foot; I13.0 Hypertensive heart and chronic kidney disease with heart failure and stage 1 through stage 4 chronic kidney disease, or unspecified chronic kidney disease; I82.629 Acute embolism and thrombosis of deep veins of unspecified upper extremity; G62.81 Critical illness polyneuropathy; N39.0 Urinary tract infection, site not specified; E87.1 Hypo-osmolality and hyponatremia; Z68.42 Body mass index [BMI] 45.0-49.9, adult; J96.11 Chronic respiratory failure with hypoxia; D63.1 Anemia in chronic kidney disease; E11.22 Type 2 diabetes mellitus with diabetic chronic kidney disease; E83.42 Hypomagnesemia; E87.6 Hypokalemia; E66.01 Morbid (severe) obesity due to excess calories; I48.91 Unspecified atrial fibrillation; I25.2 Old myocardial infarction; I50.9 Heart failure, unspecified; K21.9 Gastro-esophageal reflux disease without esophagitis; N18.9 Chronic kidney disease, unspecified; R22.43 Localized swelling, mass and lump, lower limb, bilateral; R33.9 Retention of urine, unspecified; T83.518D Infection and inflammatory reaction due to other urinary catheter, subsequent encounter; Z87.891 Personal history of nicotine dependence; Z79.01 Long term (current) use of anticoagulants
CPT/HCPCS: 36415; 71046; 74019; 80048; 81001; 83036; 85025; 85027; 87077; 87086; 87088; 87186; 93970; 94640; 97110; 97116; 97162; 97166; 97530; 97535; 97542; A9270; J0696; J2405; J7030; J7042

== ENCOUNTER 2023-01-13 13:20 | Inpatient (IN) | payer MEDICARE, OTHER, SELFPAY ==
[2023-01-13] VITALS (27 sets, daily range): BP systolic 127–166; BP diastolic 63–98; PULSE 74–98; RESP 13–27; TEMP 36.5–36.9; O2SAT 92–100; BMI 47.7
--- NOTE | ~2023-01-13 | XR_ITS ---
EXAMINATION: XR chest 1V portable DATE: 01/19/2023 18:22 INDICATION: Shortness of breath. TECHNIQUE: A single frontal view of the chest was obtained. COMPARISON: Chest single view 01/17/2023, chest CT 01/13/2023 FINDINGS: There is mild atelectasis in the lower lung zones. There is mild scarring at the lung apice s. No pleural effusion or pneumothorax. The heart size is normal. A fat pad blunts left lateral costo phrenic angle. IMPRESSION: 1. Mild atelectasis in the lower lung zones and mild scarring at the lung apices. Reviewed, dictated and finalized at location E. TH MATE IMPRESSION: 1. Mild atelectasis in the lower lung zones and mild scarring at the lung apice s.
--- NOTE | ~2023-01-13 | XR_ITS ---
Portable chest x-ray Comparison: 01/13/2023 Clinical History: Shortness of breath Findings: Probable minimal left pleural effusion present with mild left basilar pulmonary edema/atel ectasis. Questionable minimal central congestive change. Cardiomediastinal silhouette is stable. Bon es and soft tissues are unremarkable. Impression: Minimal left pleural effusion with probable minimal left basilar atelectasis. Probable minimal central congestive change. Reviewed, dictated and finalized at [facility]. WORKER SUPERVISOR Impression: Minimal left pleural effusion with probable minimal left basilar atelectasis. Probable minimal central congestive change.
--- NOTE | ~2023-01-13 | CT_ITS ---
EXAMINATION: CTA chest PE protocol DATE: 01/13/2023 17:15 INDICATION: Hypoxia. TECHNIQUE: Computed tomography angiography (CTA) of the chest was performed with 100 mL Omnipaque-350 intravenous contrast timed to evaluate the pulmonary arteries. Coronal maximum intensity projection 3D-reconstructions were created by the technologist. Automated exposure control and iterative reconst ruction technique were employed. The dose-length product was 881.22 mGy-cm. COMPARISON: None. FINDINGS: There are blebs at the lung apices. The lungs demonstrate smooth septal thickening and grou ndglass opacities, consistent with pulmonary edema. There is dependent atelectasis bilaterally. There are small pleural effusions. Cardiomegaly is noted. No pericardial effusion. There are coronary elissa ry calcifications. Aortic atherosclerosis is noted. There is no pulmonary embolus. There is a 19 mm n odule in right thyroid lobe. There is mild mediastinal and right hilar lymphadenopathy, likely reacti ve. There is severe lower thoracic spondylosis. IMPRESSION: 1. Moderate pulmonary edema. 2. Small pleural effusions. 3. No pulmonary embolus. 4. Right thyroid nodule. Consider thyroid ultrasound for risk stratification. Reviewed, dictated and finalized at location A. TTANCE CLERK
--- NOTE | ~2023-01-13 | US_ITS ---
US thyroid INDICATION: Follow-up thyroid mass seen on prior CT.. TECHNIQUE: Real-time sonographic images of the thyroid gland were obtained. COMPARISON: CTA chest dated 01/13/2023 FINDINGS: The right thyroid lobe measures 3.6 x 1.9 x 2 cm. The left thyroid lobe measures 2.4 x 1.9 x 1.3 cm. There is normal echotexture and echogenicity throughout the thyroid gland. There is a righ t thyroid nodule measuring 1.8 x 1.2 x 1.2 cm which is solid, hypoechoic, wider than tall, smoothly m arginated without macrocalcifications, TR 4. No discrete mass is identified in the left lobe. Normal vascular flow is present. IMPRESSION: 1. Right thyroid mass measuring 1.8 cm, TR 4. Ultrasound-guided fine-needle aspiration biopsy recomm ended. Reviewed, dictated and finalized at location A. INE VENEER REPAIRER IMPRESSION: 1. Right thyroid mass measuring 1.8 cm, TR 4. Ultrasound-guided fine-needle as piration biopsy recommended.
--- NOTE | ~2023-01-13 | US_ITS ---
US retroperitoneal comp 01/19/2023 13:36 Procedure: Realtime transabdominal ultrasound of the kidneys and bladder. Indication: Worsening acute renal insufficiency Comparison: No prior studies for comparison. Findings: Renal echotexture is normal bilaterally without hydronephrosis, contour deforming mass or r enal calculus. The right kidney measures 11.7 cm and left kidney measures 11 cm.. There is a small le ft renal cyst measuring approximately 2 cm. There is a Mccarty catheter in the bladder. Impression: 1: Unremarkable renal ultrasound. No stones, masses or hydronephrosis. Reviewed, dictated and finalized at location L. ENFORCEMENT AGENT Impression: 1: Unremarkable renal ultrasound. No stones, masses or hydronephrosis.
--- NOTE | ~2023-01-13 | XR_ITS ---
XR foot RT min 3V 01/15/2023 16:45 Indication: Right foot pain Procedure: 3 views right foot Comparison: No prior studies for comparison. Findings: No fracture or traumatic malalignment. Lisfranc joint intact. There is prominent degenerati ve calcaneal enthesophyte at the plantar surface. No fracture or traumatic malalignment. No erosive c hanges. Impression: 1: No acute bone or joint abnormality. Reviewed, dictated and finalized at location A. ERCIAL LEASE ADMINISTRATOR Impression: 1: No acute bone or joint abnormality.
--- NOTE | ~2023-01-13 | XR_ITS ---
EXAMINATION: XR chest 2V DATE: 01/13/2023 15:14 INDICATION: Hypoxia. TECHNIQUE: Frontal and lateral views of the chest were obtained. COMPARISON: Chest 2 views 07/15/2019 FINDINGS: There are airspace opacities in the mid and lower lung zones. There are small pleural effus ions. No pneumothorax. The heart size is normal. IMPRESSION: 1. Airspace opacities in the mid and lower lung zones, consistent with pulmonary edema versus pneumon ia. 2. Small pleural effusions. Reviewed, dictated and finalized at location A. TING ENGINE OPERATOR IMPRESSION: 1. Airspace opacities in the mid and lower lung zones, consistent with pulmonar y edema versus pneumonia. 2. Small pleural effusions.
--- NOTE | 2023-01-13 13:29 | ECG_ITS ---
Measurements Intervals [place] Rate: 93 P: [place]: 0 QRS: -51 QRSD: 128 T: 96 QT: 326 QTc: 405 Interpretive Statements ATRIAL FIBRILLATION LEFT AXIS DEVIATION [QRS AXIS < -30] INTRAVENTRICULAR CONDUCTION DELAY ABNORMAL ECG COMPARED TO ECG 06/29/2019 08:10:37 NO SIGNIFICANT CHANGES Electronically Signed On 01-13-2023 13:43:29 RESEARCH AND DEVELOPMENT RESEARCHER by Chris Sanchez M.D.
--- NOTE | 2023-01-13 13:40 | ED.AMS ---
HPI - Altered Mental Status General Chief Complaint: Altered Mental Status Stated Complaint: AMS Time Seen by Provider: 01/13/23 13:38 Source: patient Mode of arrival: EMS History of Present Illness HPI narrative: This is a 72 yo male who presents with complaint of altered mental status. He was recently hospitalized and treated for sepsis and discharged to [facility]. It is reported that patient was found to have a low SPO2 and was treated with albuterol without significant improvement. Patient states he does not wear oxygen at baseline however [facility] photo [facility] the [facility] shows a nasal cannula in place. He denies any chest pain. Related Data Home Medications Medication Instructions Recorded Confirmed albuterol sulfate 2.5 mg/3 mL 2.5 mg inhalation TID 01/13/23 01/13/23 (0.083 %) solution for nebulization amoxicillin 875 mg-potassium 1 tablet PO Q12H 01/13/23 01/13/23 clavulanate 125 mg tablet apixaban 5 mg tablet (Eliquis) 5 mg PO Q12H 01/13/23 01/13/23 aspirin 81 mg chewable tablet 81 mg PO DAILY 01/13/23 01/13/23 atorvastatin 20 mg tablet 20 mg PO HS 01/13/23 01/13/23 bisacodyl 10 mg rectal suppository 10 mg RECTAL DAILY PRN Constipation 01/13/23 01/13/23 diltiazem HCl 180 mg 180 mg PO DAILY 01/13/23 01/13/23 capsule,extended release 24 hr fexofenadine 180 mg tablet 180 mg PO DAILY allergies 01/13/23 01/13/23 furosemide 40 mg tablet 40 mg PO BID 01/13/23 01/13/23 levothyroxine 50 mcg tablet 50 mcg PO DAILY 01/13/23 01/13/23 magnesium citrate (Citroma oral 296 ml PO PRN PRN Constipation 01/13/23 01/13/23 solution) magnesium hydroxide 400 mg/5 mL 30 ml PO PRN PRN Constipation 01/13/23 01/13/23 oral suspension (Milk of Magnesia) metformin 500 mg tablet 500 mg PO BIDWMEAL 01/13/23 01/13/23 metoprolol succinate 50 mg 50 mg PO DAILY 01/13/23 01/13/23 tablet,extended release 24 hr mupirocin 2 % topical ointment 1 applic topical DAILY 01/13/23 01/13/23 ondansetron 4 mg disintegrating 4 mg PO Q6H PRN nasuea 01/13/23 01/13/23 tablet pantoprazole 40 mg tablet,delayed 40 mg PO DAILY 01/13/23 01/13/23 release (Protonix) Allergies Allergy/AdvReac Type Severity Reaction Status Date / Time lisinopril Allergy Unknown Verified 01/13/23 21:00 [facility] Past Medical History Medical History (Updated 01/15/23 @ 01:39 by Rosanna Madison MD) Atrial fibrillation Chronic kidney disease Diabetes mellitus Morbid obesity Urinary retention Surgical History Surgical History Status post right foot surgery Family History Family History (Updated 01/13/23 @ 20:57 by Wendi Gill RN) Father Cancer Mother Chronic obstructive pulmonary disease Cancer Social History Social History (Updated 01/15/23 @ 01:23 by Rosanna Madison MD) Social History: Patient is no longer a smoker but quit 37 years ago. Before then he smoked half a pack per day. He does not drink alcohol, do drugs, or smoke marijuana. 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 He would like his to be his surrogate decision maker. He would like to be a full code Smoking packs per day: 1 Smoking cigarettes per day: 20.0 Years smoked: 15 Smoking pack-years: 15.00 Smoking status: Former smoker Tobacco type: cigarettes Second hand tobacco smoke exposure: Yes Alcohol intake: never Substance use: never Substance use type: does not use Lack of Transportation: No Lack of Food: Never True Current Housing: I Have Housing Concerned About Future Housing: No Difficulty Paying Gas/Electric Bills: No Difficulty Paying for Meds: No Currently Unemployed: No Education: Decline to Answer Difficulty w/ Childcare or Family Care: No Additional living arrangements comments: Currently at [facility] Gender identity (if verbalized by the patient): Male Spiritual care concerns: No Agree to blood products: Yes Exam Narrative: GENERAL: well-
--- NOTE | 2023-01-13 13:44 | PC.NURSE ---
Pt has blanton in place on arrival to facility. Bag is maintained below level of bladder and intact.
[2023-01-13 13:59] LABS: Basophils Percent Auto 0.3 % (0.2-1.2); Eosinophils Absolute Auto 0.1 K/mm3 (0-0.3); Eosinophils Percent Auto 1.4 % (0-4.4); Hematocrit 36.2 % (42.0-52.0); Hemoglobin 10.6 g/dL (14.0-18.0); Immature Granulocyte Absolute 0.08 K/mm3 (0.00-0.031); Immature Granulocyte Percent A 0.8 % (0-0.5); Lymphocytes Absolute Auto 1.15 K/mm3 (0.9-3.2); Lymphocytes Percent Auto 11.1 % (18.3-44.2); Mean Corpuscular HGB Conc 29.3 g/dl (32-36); Mean Corpuscular Hemoglobin 29.9 pg (26-34); Mean Corpuscular Volume 102.3 fl (80-100); Mean Platelet Volume 9.6 fl (7.4-10.4); Monocytes Absolute Auto 0.9 K/mm3 (0.1-0.6); Monocytes Percent Auto 9.1 % (2.6-8.5); Neutrophils Percent Auto 77.3 % (45.5-73.1); Platelet Count Result 179 k/mm3 (150-375); Red Blood Count 3.54 M/mm3 (4.6-6.20); Red Cell Distribution Width 13.3 % (11.5-14.5); White Blood Count 10.4 K/mm3 (4.5-10.0)
[2023-01-13 14:11] LABS: Alanine Aminotransferase 13 U/L (6-50); Albumin Level 3.4 g/dL (3.5-5.1); Alkaline Phosphatase 69 U/L (38-126); Aspartate Amino Transferase 17 U/L (17-59); Bilirubin,Total 0.7 mg/dL (0.2-1.3); Blood Urea Nitrogen 28 mg/dL (9-20); Calcium 9.9 mg/dL (8.4-10.2); Carbon Dioxide > 40 mmol/L (22-30); Chloride 98 mmol/L (98-107); Estimated CRCL calculation 60 ml/min; Estimated Glomerular Filt Rate 54; Glucose 163 mg/dL (65-110); Potassium 4.8 mmol/L (3.4-5.0); Sodium 140 mmol/L (137-145)
[2023-01-13 14:12] LABS: INR 1.2; Prothrombin Time 15.9 Seconds (11.1-14.7)
[2023-01-13 14:13] LABS: Partial Thromboplastin Time 39.9 SECONDS (22.3-36.8)
[2023-01-13 14:36] LABS: Appearance Urine Turbid (Clear); Bacteria Urine None Seen /hpf; Bilirubin Urine Negative (Negative); Blood Urine 2+ (Negative); Color Urine Yellow (Yellow); Glucose Urine UA Negative (Negative); Ketones Urine Negative (Negative); Leukocyte Esterase Ur Trace LEU/UL (Negative); Nitrate Urine Negative (Negative); Protein Urine 1+ mg/dL (Negative); RBC Urine >100 /hpf (0-2); Specific Grav Ur 1.019 (1.001-1.035); Squamous Epithelial Cell Urine None seen /hpf (Few); Uric Acid Crystals Urine Present /hpf; Urobilinogen Urine 0.2 mg/dL (<2.0)
[2023-01-13 14:37] LABS: NT Pro B Type Natriuretic Pept 4810 pg/mL (19.9-100)
[2023-01-13 14:37] LABS: Add Urine Microscopic? YES
[2023-01-13 14:38] LABS: Influenza A QL RT-PCR Negative (Negative); Influenza B QL RT-PCR Negative (Negative); RSV RNA, RT-PCR Negative (Negative); SARS-CoV-2 RNA PCR Negative (Negative)
[2023-01-13 14:48] LABS: D Dimer 0.99 ug/mL (<0.48)
[2023-01-13 15:01] LABS: Alveolar/Arterial O2 Gradient 150.9 mmHg; Base Excess ABG 7.4 mEq/l (+/-2.0); Fractional Inspired Oxygen 44 %; HCO3 ABG 35.6 mEq/l (22.0-26.0); Oxygen Content ABG 15.1 %vol (16.0-22.0); Oxygen Saturation ABG 94.8 % (95.0-100.0); Oxyhemoglobin 93.6 % THb (90.0-100.0); PO2 ABG 82.3 mmHg (80.0-100.0); PO2 FiO2 Ratio Arterial Blood 1.87 %; Total Hemoglobin 11.4 g/dL (12.0-18.0)
[2023-01-13 15:03] LABS: Modified Allen's Test Pass; PCO2 ABG 70.6 mmHg (35.0-45.0); Site Drawn LEFT RADIAL
[2023-01-13 15:04] LABS: Device HIGH FLOW NASAL CANN
[2023-01-13] MEDS: FUROSEMIDE INJ 40 MG/4 ML VIAL IV PUSH (15:49)
--- NOTE | 2023-01-13 19:00 | PC.NURSE ---
This patient, Hans Gaytan, was admitted to IMU Room 211-01 at 1900. Pt is confused and unable to be oriented to hospital policies and general routines including ID bracelet, bed and alarms, visiting hours, pain management, procedures, bathroom and other care routines, personal items, smoking policy, room service/diet, and visiting hours. Patient encouraged to report perceived risks to care and to ask questions if they do not understand what they are told or what they should do.
[2023-01-13 19:47] LABS: Troponin I < 0.012 ng/mL (0.000-0.034)
[2023-01-13 20:27] LABS: Glucose Point of Care 134 mg/dl (65-105)
--- NOTE | 2023-01-13 20:46 | PM.IMHP ---
H&P: HPI History of Present Illness Date/Time: 01/13/23 20:46 Chief Complaint: Patient transferred from longterm for evaluation due to altered mental status Narrative: He is a pleasantly confused gentleman who has recently been placed in the longterm for admission status post sepsis which was treated in another hospital. Patient developed altered mental status and transferred to the ER for evaluation. Workup was done which showed findings consistent with pulmonary edema and pleural effusions. He also had hypercapnia on ABGs hence placed on BiPAP. He likely uses nasal cannula at baseline, but he could not recall due to confusion. His picture from the longterm showed a nasal cannula in place. He was given 1 dose of IV Lasix and is being placed for close monitoring and medical management. Review of Systems Review of Systems: Unable to be obtained. Patient is pleasantly confused ROS unobtainable: Yes unobtainable due to medical condition and unobtainable due to mental status PMFSH Past Medical History Medical History (Updated 01/13/23 @ 21:01 by Gerry Mcqueen MD) Atrial fibrillation Chronic kidney disease Diabetes mellitus Morbid obesity Urinary retention Surgical History Surgical History Status post right foot surgery Family History Family History Father Cancer Mother Chronic obstructive pulmonary disease Cancer Social History Social History Social History: Patient is no longer a smoker but quit 37 years ago. Before then he smoked half a pack per day. He does not drink alcohol, do drugs, or smoke marijuana. 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 He would like his to be his surrogate decision maker. He would like to be a full code Smoking packs per day: 1 Smoking cigarettes per day: 20.0 Years smoked: 15 Smoking pack-years: 15.00 Smoking status: Former smoker Tobacco type: cigarettes Second hand tobacco smoke exposure: Yes Alcohol intake: never Substance use: never Substance use type: does not use Gender identity (if verbalized by the patient): Male Spiritual care concerns: No Agree to blood products: Yes Meds Home Medications and Allergies Home Medications Medication Instructions Recorded Confirmed Type acetaminophen 325 mg capsule 650 mg PO TID 06/19/19 07/01/19 History (Tylenol) indacaterol 27.5 1 cap inhalation BID 06/19/19 07/01/19 History mcg-glycopyrrolate 15.6 mcg capsule inhalation device (Utibron Neohaler) simethicone 80 mg chewable tablet 120 mg PO TID 06/19/19 07/01/19 History (Gas Relief 80 (simethicone)) polyethylene glycol 3350 17 17 gm PO DAILY #119 grams 07/01/19 07/01/19 Rx gram/dose oral powder (Miralax) apixaban 2.5 mg tablet (Eliquis) 2.5 mg PO BID #60 tabs 07/17/19 Rx bumetanide 2 mg tablet 1 mg PO BID #60 tabs 07/17/19 Rx digoxin 125 mcg (0.125 mg) tablet 125 mcg PO DAILY #30 tabs 07/17/19 Rx metoprolol tartrate 50 mg tablet 50 mg PO Q12H #60 tabs 07/17/19 Rx miconazole nitrate 2 % topical 1 applic topical Q12HR #1 tube 07/17/19 Rx cream pantoprazole 40 mg tablet,delayed 40 mg PO BID #60 tabs 07/17/19 Rx release (Protonix) potassium chloride 10 mEq 20 meq PO TID #180 tabs 07/17/19 Rx tablet,extended release (K-Tab) salmeterol 50 mcg/dose blister 1 puff inhalation Q12HRT #1 vial 07/17/19 Rx powder for inhalation (Serevent Diskus) tolnaftate 1 % topical powder 1 applic topical Q12HR #1 packet 07/17/19 Rx linezolid 600 mg tablet (Zyvox) 600 mg PO Q12HR 13 days #26 tabs 07/18/19 Rx Allergies Allergy/AdvReac Type Severity Reaction Status Date / Time lisinopril Allergy Unknown Verified 01/13/23 21:00 Vital Signs Vital Signs - 24 hr 01/13/23 13:20 01/13/23 13:42 01/13/23 15:25 Temperature 36.8 C Pulse Rate 88 80 Respirator
[2023-01-13] MEDS: BUMETANIDE 1 MG TABLET PO (23:42)
[2023-01-13] MEDS: AMOXICILLIN/CLAVULANATE K 875-125 MG TAB 1 TABLET PO (23:42)
[2023-01-13] MEDS: LINEZOLID 600 MG TABLET PO (23:42)
[2023-01-13] MEDS: ATORVASTATIN 20 MG TABLET PO (23:42)
[2023-01-13] MEDS: APIXABAN 5 MG TABLET PO (23:42)
[2023-01-14] VITALS (29 sets, daily range): BP systolic 126–148; BP diastolic 63–90; PULSE 66–104; RESP 18–25; TEMP 36.1–36.6; O2SAT 94–100
[2023-01-14 04:49] LABS: Basophils Percent Auto 0.2 % (0.2-1.2); Eosinophils Absolute Auto 0.3 K/mm3 (0-0.3); Eosinophils Percent Auto 3.4 % (0-4.4); Hematocrit 35.2 % (42.0-52.0); Hemoglobin 10.4 g/dL (14.0-18.0); Immature Granulocyte Absolute 0.08 K/mm3 (0.00-0.031); Immature Granulocyte Percent A 0.9 % (0-0.5); Lymphocytes Absolute Auto 0.92 K/mm3 (0.9-3.2); Lymphocytes Percent Auto 10.4 % (18.3-44.2); Mean Corpuscular HGB Conc 29.5 g/dl (32-36); Mean Corpuscular Hemoglobin 29.9 pg (26-34); Mean Corpuscular Volume 101.1 fl (80-100); Mean Platelet Volume 9.7 fl (7.4-10.4); Monocytes Absolute Auto 0.8 K/mm3 (0.1-0.6); Monocytes Percent Auto 9.4 % (2.6-8.5); Neutrophils Absolute Auto 6.7 K/mm3 (1.3-6.7); Neutrophils Percent Auto 75.7 % (45.5-73.1); Platelet Count Result 214 k/mm3 (150-375); Red Blood Count 3.48 M/mm3 (4.6-6.20); Red Cell Distribution Width 13.3 % (11.5-14.5); White Blood Count 8.8 K/mm3 (4.5-10.0)
[2023-01-14 05:15] LABS: Blood Urea Nitrogen 29 mg/dL (9-20); Calcium 9.6 mg/dL (8.4-10.2); Carbon Dioxide > 40 mmol/L (22-30); Chloride 94 mmol/L (98-107); Estimated CRCL calculation 76 ml/min; Estimated Glomerular Filt Rate > 60; Glucose 113 mg/dL (65-110); Magnesium 1.9 mg/dL (1.6-2.3); Phosphorus 3.1 mg/dL (2.5-4.5); Potassium 4.5 mmol/L (3.4-5.0); Sodium 139 mmol/L (137-145)
[2023-01-14] MEDS: LEVOTHYROXINE SODIUM 50 MCG TABLET PO (06:38)
[2023-01-14 08:09] LABS: Glucose Point of Care 111 mg/dl (65-105)
[2023-01-14] MEDS: ALBUTEROL SULFATE NEB 2.5 MG/3 ML INH INHALATION ×3 (08:49→21:10)
[2023-01-14] MEDS: ASPIRIN 81 MG CHEWABLE TABLET PO (09:52)
[2023-01-14] MEDS: APIXABAN 5 MG TABLET PO ×2 (09:53→20:39)
[2023-01-14] MEDS: AMOXICILLIN/CLAVULANATE K 875-125 MG TAB 1 TABLET PO ×2 (09:53→20:39)
[2023-01-14] MEDS: METOPROLOL SUCCINATE EXT REL 50 MG TABCR PO (09:53)
[2023-01-14] MEDS: BUMETANIDE 1 MG TABLET PO (09:53)
[2023-01-14] MEDS: LORATADINE 10 MG TABLET PO (09:54)
[2023-01-14] MEDS: dilTIAZem HCL CD 180 MG CAP.24HR PO (09:54)
[2023-01-14] MEDS: LINEZOLID 600 MG TABLET PO ×2 (09:54→20:39)
[2023-01-14] MEDS: PANTOPRAZOLE 40 MG TABLET PO (09:54)
[2023-01-14] MEDS: FUROSEMIDE INJ 40 MG/4 ML VIAL IV PUSH (09:54)
[2023-01-14] MEDS: MUPIROCIN 2% OINT 22 GM TUBE 1 APPLIC TOPICAL (09:57)
[2023-01-14] MEDS: TOLNAFTATE 1% POWDER 45 GM BTL 1 APPLIC TOPICAL ×2 (09:57→20:39)
[2023-01-14 12:00] LABS: Glucose Point of Care 145 mg/dl (65-105)
--- NOTE | 2023-01-14 13:07 | PM.IMPN ---
Progress Note: A&P Assessment and Plan (1) Acute respiratory failure with hypercapnia: Code(s): J96.02 - Acute respiratory failure with hypercapnia Status: Acute (2) Urinary retention: Code(s): R33.9 - Retention of urine, unspecified Status: Acute (3) Leukocytosis: Code(s): D72.829 - Elevated white blood cell count, unspecified Status: Acute (4) Morbid obesity: Code(s): E66.01 - Morbid (severe) obesity due to excess calories Status: Acute (5) Chronic kidney disease: Code(s): N18.9 - Chronic kidney disease, unspecified Status: Acute (6) Diabetes mellitus: Code(s): E11.9 - Type 2 diabetes mellitus without complications Status: Acute (7) Pleural effusion: Code(s): J90 - Pleural effusion, not elsewhere classified Status: Acute Plan Patient presented from the custodial with altered mental status. Workup revealed pleural effusion with hypercapnia on ABGs. Placed on BiPAP uses oxygen at baseline via nasal cannula. Continues to remain confused. A dose of Lasix was given. Underlying history of chronic kidney disease atrial fibrillation diabetes morbid obesity urinary retention and on Mccarty catheter. Workup revealed WBC 10.4 mild anemia 10.6 creatinine 1.3 troponin negative LFT normal on Bumex at home. Will switch to Bumex IV Chronic indwelling catheter Right thyroid nodule thyroid ultrasound as an outpatient Acute on chronic congestive heart failure continue diuresis. BNP of 4800 Acute on chronic hypoxic and hypercapnic respiratory failure placed on BiPAP on admission. ABG is 7.32/70/82/35. Will recheck ABG. COVID RSV influenza negative. Chest x-ray with airspace opacity mid and lower lung zones consistent with pulmonary edema versus pneumonia. Small pleural effusions. CTA with moderate pulmonary edema small pleural effusions no PE. Hematuria: Likely traumatic while catheter was exchanged in the ER. Will continue to monitor Atrial fibrillation on diltiazem Recent cellulitis on Zyvox and Augmentin which will be continued WBC count has normalized today dVT prophylaxis apixaban Code status full code Subjective Date/time seen: 01/14/23 13:07 Interval history: Patient presented from the custodial with altered mental status. Workup edema bone pleural effusion with hypercapnia on ABGs. Placed on BiPAP uses oxygen at baseline via nasal cannula. Continues to remain confused. A dose of Lasix was given. Underlying history of chronic kidney disease atrial fibrillation diabetes morbid obesity urinary retention and on Mccarty catheter. Workup revealed WBC 10.4 mild anemia 10.6 creatinine 1.3 troponin negative LFT normal on Bumex at home. Chronic indwelling catheter Right thyroid nodule thyroid ultrasound as an outpatient Acute on chronic congestive heart failure continue diuresis. BNP of 4800 Acute on chronic hypoxic and hypercapnic respiratory failure placed on BiPAP on admission. ABG is 7.32/70/82/35. Will recheck ABG. COVID RSV influenza negative. Chest x-ray with airspace opacity mid and lower lung zones consistent with pulmonary edema versus pneumonia. Small pleural effusions. CTA with moderate pulmonary edema small pleural effusions no PE. Hematuria: Likely traumatic while catheter was exchanged in the ER. Will continue to monitor dVT prophylaxis Lovenox Code status full code Review of Systems Review of Systems: All systems reviewed & are unremarkable except as noted in HPI and below Exam Narrative: General physical exam: morbidly obese patient, lying in bed nasal cannula, he is pleasantly confused Head/eyes: Atraumatic, EOMI, PERRLA ENT: Moist mucous membranes, nasal passages clear Neck: Supple, full range of motion, trachea midline CVS: S1 + S2, regular rate and rhythm, no murmurs Respiratory: Bilaterally decreased air entry in both lung herring, mild B/L crackles, + bilateral scattered rales Abdomen: Soft, non-tender,
[2023-01-14 16:38] LABS: Glucose Point of Care 134 mg/dl (65-105)
[2023-01-14 17:05] LABS: Alveolar/Arterial O2 Gradient 98.7 mmHg; Base Excess ABG 14.1 mEq/l (+/-2.0); Fractional Inspired Oxygen 36 %; HCO3 ABG 41.1 mEq/l (22.0-26.0); Oxygen Content ABG 15.6 %vol (16.0-22.0); Oxygen Saturation ABG 96.1 % (95.0-100.0); Oxyhemoglobin 94.6 % THb (90.0-100.0); PO2 ABG 83.7 mmHg (80.0-100.0); PO2 FiO2 Ratio Arterial Blood 2.32 %; Total Hemoglobin 11.7 g/dL (12.0-18.0); pH ABG 7.425 (7.350-7.450)
[2023-01-14 17:43] LABS: Device NASAL CANNULA; Modified Allen's Test Pass; Site Drawn RIGHT RADIAL
[2023-01-14] MEDS: BUMETANIDE INJ 1 MG/4 ML VIAL IV PUSH (18:40)
[2023-01-14 20:14] LABS: Glucose Point of Care 175 mg/dl (65-105)
[2023-01-14] MEDS: ATORVASTATIN 20 MG TABLET PO (20:39)
[2023-01-15] VITALS (20 sets, daily range): BP systolic 96–126; BP diastolic 67–88; PULSE 72–108; RESP 18–22; TEMP 35.7–37.1; O2SAT 94–100
[2023-01-15 03:57] LABS: Basophils Percent Auto 0.5 % (0.2-1.2); Eosinophils Absolute Auto 0.3 K/mm3 (0-0.3); Eosinophils Percent Auto 3.9 % (0-4.4); Hematocrit 34.9 % (42.0-52.0); Hemoglobin 10.4 g/dL (14.0-18.0); Immature Granulocyte Absolute 0.18 K/mm3 (0.00-0.031); Immature Granulocyte Percent A 2.2 % (0-0.5); Lymphocytes Absolute Auto 1.35 K/mm3 (0.9-3.2); Lymphocytes Percent Auto 16.5 % (18.3-44.2); Mean Corpuscular HGB Conc 29.8 g/dl (32-36); Mean Corpuscular Hemoglobin 29.5 pg (26-34); Mean Corpuscular Volume 98.9 fl (80-100); Mean Platelet Volume 9.5 fl (7.4-10.4); Monocytes Absolute Auto 0.9 K/mm3 (0.1-0.6); Monocytes Percent Auto 11.4 % (2.6-8.5); Neutrophils Absolute Auto 5.4 K/mm3 (1.3-6.7); Neutrophils Percent Auto 65.5 % (45.5-73.1); Platelet Count Result 221 k/mm3 (150-375); Red Blood Count 3.53 M/mm3 (4.6-6.20); Red Cell Distribution Width 13.1 % (11.5-14.5); White Blood Count 8.2 K/mm3 (4.5-10.0)
[2023-01-15 04:33] LABS: Platelet Clumps Present; Platelet Estimate Adequate (Adequate)
[2023-01-15 04:36] LABS: Anisocytosis 1+ (NORMAL); Hypochromasia 1+ (NORMAL); Schistocytes None Seen (NORMAL)
[2023-01-15 04:40] LABS: Blood Urea Nitrogen 33 mg/dL (9-20); Calcium 9.4 mg/dL (8.4-10.2); Carbon Dioxide > 40 mmol/L (22-30); Chloride 89 mmol/L (98-107); Estimated CRCL calculation 64 ml/min; Estimated Glomerular Filt Rate 59; Glucose 136 mg/dL (65-110); Potassium 4.2 mmol/L (3.4-5.0); Sodium 137 mmol/L (137-145)
[2023-01-15] MEDS: LEVOTHYROXINE SODIUM 50 MCG TABLET PO (06:34)
[2023-01-15 08:17] LABS: Glucose Point of Care 123 mg/dl (65-105)
[2023-01-15] MEDS: ALBUTEROL SULFATE NEB 2.5 MG/3 ML INH INHALATION ×3 (08:24→20:56)
[2023-01-15] MEDS: LINEZOLID 600 MG TABLET PO ×2 (10:48→20:29)
[2023-01-15] MEDS: AMOXICILLIN/CLAVULANATE K 875-125 MG TAB 1 TABLET PO ×2 (10:48→20:29)
[2023-01-15] MEDS: dilTIAZem HCL CD 180 MG CAP.24HR PO (10:48)
[2023-01-15] MEDS: ASPIRIN 81 MG CHEWABLE TABLET PO (10:48)
[2023-01-15] MEDS: APIXABAN 5 MG TABLET PO ×2 (10:49→20:29)
[2023-01-15] MEDS: LORATADINE 10 MG TABLET PO (10:49)
[2023-01-15] MEDS: METOPROLOL SUCCINATE EXT REL 50 MG TABCR PO (10:50)
[2023-01-15] MEDS: TOLNAFTATE 1% POWDER 45 GM BTL 1 APPLIC TOPICAL ×2 (10:51→20:29)
[2023-01-15] MEDS: PANTOPRAZOLE 40 MG TABLET PO (10:51)
[2023-01-15] MEDS: MUPIROCIN 2% OINT 22 GM TUBE 1 APPLIC TOPICAL (10:51)
[2023-01-15] MEDS: BUMETANIDE INJ 1 MG/4 ML VIAL IV PUSH ×2 (11:18→16:37)
[2023-01-15 12:32] LABS: Glucose Point of Care 169 mg/dl (65-105)
--- NOTE | 2023-01-15 16:19 | PM.IMPN ---
Progress Note: A&P Assessment and Plan (1) Acute respiratory failure with hypercapnia: Code(s): J96.02 - Acute respiratory failure with hypercapnia Status: Acute (2) Urinary retention: Code(s): R33.9 - Retention of urine, unspecified Status: Acute (3) Leukocytosis: Qualifiers: Leukocytosis type: unspecified Qualified Code(s): D72.829 - Elevated white blood cell count, unspecified Code(s): D72.829 - Elevated white blood cell count, unspecified Status: Acute (4) Morbid obesity: Code(s): E66.01 - Morbid (severe) obesity due to excess calories Status: Acute (5) Chronic kidney disease: Code(s): N18.9 - Chronic kidney disease, unspecified Status: Acute (6) Diabetes mellitus: Code(s): E11.9 - Type 2 diabetes mellitus without complications Status: Acute (7) Pleural effusion: Code(s): J90 - Pleural effusion, not elsewhere classified Status: Acute Plan Patient presented from the retirement with altered mental status. Workup revealed pleural effusion with hypercapnia on ABGs. Placed on BiPAP uses oxygen at baseline via nasal cannula. Continues to remain confused. A dose of Lasix was given. Underlying history of chronic kidney disease atrial fibrillation diabetes morbid obesity urinary retention and on Mccarty catheter. Workup revealed WBC 10.4 mild anemia 10.6 creatinine 1.3 troponin negative LFT normal on Bumex at home. Will switch to Bumex IV Chronic indwelling catheter Right thyroid nodule thyroid ultrasound with TR for thyroid nodule. If possible will get the thyroid gland biopsy. Acute on chronic congestive heart failure continue diuresis. BNP of 4800 Acute on chronic hypoxic and hypercapnic respiratory failure placed on BiPAP on admission. ABG is 7.32/70/82/35. Recheck ABG with improvement. Continue BiPAP at night. P.r.n. during daytime. COVID RSV influenza negative. Chest x-ray with airspace opacity mid and lower lung zones consistent with pulmonary edema versus pneumonia. Small pleural effusions. CTA with moderate pulmonary edema small pleural effusions no PE. Continue diuresis Hematuria: Likely traumatic while catheter was exchanged in the ER. Will continue to monitor Atrial fibrillation on diltiazem Recent cellulitis on Zyvox and Augmentin which will be continued WBC count has normalized today Urethral drainage: Swabbed. Likely need Mccarty change and routine Mccarty care. Already on Augmentin and Zyvox. To ulceration which is reported be chronic per patient will get x-ray dVT prophylaxis apixaban Code status full code Subjective Date/time seen: 01/15/23 16:19 Interval history: Patient presented from the retirement with altered mental status. Workup edema bone pleural effusion with hypercapnia on ABGs. Placed on BiPAP uses oxygen at baseline via nasal cannula. Continues to remain confused. A dose of Lasix was given. Underlying history of chronic kidney disease atrial fibrillation diabetes morbid obesity urinary retention and on Mccarty catheter. Workup revealed WBC 10.4 mild anemia 10.6 creatinine 1.3 troponin negative LFT normal on Bumex at home. Chronic indwelling catheter Right thyroid nodule thyroid ultrasound as an outpatient Acute on chronic congestive heart failure continue diuresis. BNP of 4800 Acute on chronic hypoxic and hypercapnic respiratory failure placed on BiPAP on admission. ABG is 7.32/70/82/35. Will recheck ABG. COVID RSV influenza negative. Chest x-ray with airspace opacity mid and lower lung zones consistent with pulmonary edema versus pneumonia. Small pleural effusions. CTA with moderate pulmonary edema small pleural effusions no PE. Hematuria: Likely traumatic while catheter was exchanged in the ER. Will continue to monitor dVT prophylaxis Lovenox Code status full code 01/15/2023: No overnight events. Has some cloudy drainage around his Mccarty catheter. Breathing okay. Used BiPAP at
[2023-01-15 16:26] LABS: Glucose Point of Care 152 mg/dl (65-105)
[2023-01-15] MEDS: ATORVASTATIN 20 MG TABLET PO (20:29)
[2023-01-15 21:14] LABS: Glucose Point of Care 174 mg/dl (65-105)
[2023-01-16] VITALS (24 sets, daily range): BP systolic 104–121; BP diastolic 54–84; PULSE 54–112; RESP 16–22; TEMP 36.2–36.6; O2SAT 88–100
[2023-01-16 05:53] LABS: Basophils Absolute Auto 0.1 K/mm3 (0.0-0.1); Basophils Percent Auto 0.7 % (0.2-1.2); Eosinophils Absolute Auto 0.3 K/mm3 (0-0.3); Eosinophils Percent Auto 3.6 % (0-4.4); Hematocrit 35.7 % (42.0-52.0); Hemoglobin 10.9 g/dL (14.0-18.0); Immature Granulocyte Percent A 1.3 % (0-0.5); Lymphocytes Absolute Auto 1.36 K/mm3 (0.9-3.2); Lymphocytes Percent Auto 18.3 % (18.3-44.2); Mean Corpuscular HGB Conc 30.5 g/dl (32-36); Mean Corpuscular Hemoglobin 29.9 pg (26-34); Mean Corpuscular Volume 98.1 fl (80-100); Mean Platelet Volume 9.6 fl (7.4-10.4); Monocytes Absolute Auto 0.8 K/mm3 (0.1-0.6); Monocytes Percent Auto 10.3 % (2.6-8.5); Neutrophils Absolute Auto 4.9 K/mm3 (1.3-6.7); Neutrophils Percent Auto 65.8 % (45.5-73.1); Platelet Count Result 240 k/mm3 (150-375); Red Blood Count 3.64 M/mm3 (4.6-6.20); Red Cell Distribution Width 13.1 % (11.5-14.5); White Blood Count 7.4 K/mm3 (4.5-10.0)
[2023-01-16 06:15] LABS: Alanine Aminotransferase 12 U/L (6-50); Albumin Level 3.3 g/dL (3.5-5.1); Alkaline Phosphatase 67 U/L (38-126); Aspartate Amino Transferase 23 U/L (17-59); Bilirubin,Total 0.8 mg/dL (0.2-1.3); Blood Urea Nitrogen 29 mg/dL (9-20); Calcium 9.6 mg/dL (8.4-10.2); Carbon Dioxide > 40 mmol/L (22-30); Chloride 84 mmol/L (98-107); Estimated CRCL calculation 53 ml/min; Estimated Glomerular Filt Rate 50; Glucose 134 mg/dL (65-110); Magnesium 1.7 mg/dL (1.6-2.3); Potassium 3.9 mmol/L (3.4-5.0); Sodium 136 mmol/L (137-145)
[2023-01-16] MEDS: LEVOTHYROXINE SODIUM 50 MCG TABLET PO (06:43)
[2023-01-16] MEDS: ALBUTEROL SULFATE NEB 2.5 MG/3 ML INH INHALATION ×3 (07:43→20:13)
[2023-01-16 08:33] LABS: Glucose Point of Care 129 mg/dl (65-105)
[2023-01-16] MEDS: AMOXICILLIN/CLAVULANATE K 875-125 MG TAB 1 TABLET PO ×2 (11:03→20:10)
[2023-01-16] MEDS: PANTOPRAZOLE 40 MG TABLET PO (11:04)
[2023-01-16] MEDS: dilTIAZem HCL CD 180 MG CAP.24HR PO (11:04)
[2023-01-16] MEDS: APIXABAN 5 MG TABLET PO ×2 (11:04→20:09)
[2023-01-16] MEDS: LINEZOLID 600 MG TABLET PO ×2 (11:04→20:10)
[2023-01-16] MEDS: METOPROLOL SUCCINATE EXT REL 50 MG TABCR PO (11:04)
[2023-01-16] MEDS: ASPIRIN 81 MG CHEWABLE TABLET PO (11:04)
[2023-01-16] MEDS: LORATADINE 10 MG TABLET PO (11:04)
[2023-01-16] MEDS: MUPIROCIN 2% OINT 22 GM TUBE 1 APPLIC TOPICAL (11:05)
[2023-01-16] MEDS: TOLNAFTATE 1% POWDER 45 GM BTL 1 APPLIC TOPICAL ×2 (11:05→20:10)
[2023-01-16] MEDS: BUMETANIDE INJ 1 MG/4 ML VIAL IV PUSH (11:06)
[2023-01-16 12:43] LABS: Glucose Point of Care 178 mg/dl (65-105)
--- NOTE | 2023-01-16 16:00 | PM.IMPN ---
Progress Note: A&P Assessment and Plan (1) Acute respiratory failure with hypercapnia: Code(s): J96.02 - Acute respiratory failure with hypercapnia Status: Acute (2) Urinary retention: Code(s): R33.9 - Retention of urine, unspecified Status: Acute (3) Leukocytosis: Qualifiers: Leukocytosis type: unspecified Qualified Code(s): D72.829 - Elevated white blood cell count, unspecified Code(s): D72.829 - Elevated white blood cell count, unspecified Status: Acute (4) Morbid obesity: Code(s): E66.01 - Morbid (severe) obesity due to excess calories Status: Acute (5) Chronic kidney disease: Code(s): N18.9 - Chronic kidney disease, unspecified Status: Acute (6) Diabetes mellitus: Code(s): E11.9 - Type 2 diabetes mellitus without complications Status: Acute (7) Pleural effusion: Code(s): J90 - Pleural effusion, not elsewhere classified Status: Acute Plan Patient presented from the halfway with altered mental status. Workup revealed pleural effusion with hypercapnia on ABGs. Placed on BiPAP uses oxygen at baseline via nasal cannula. Continues to remain confused. A dose of Lasix was given. Underlying history of chronic kidney disease atrial fibrillation diabetes morbid obesity urinary retention and on Mccarty catheter. Workup revealed WBC 10.4 mild anemia 10.6 creatinine 1.3 troponin negative LFT normal on Bumex at home. Will switch to Bumex IV. Creatinine slightly bumped today will switch back to oral Bumex leg swelling has improved Chronic indwelling catheter Right thyroid nodule thyroid ultrasound with TR for thyroid nodule. If possible will get the thyroid gland biopsy. Cannot do it as inpatient. Needs to be done as an outpatient basis Acute on chronic congestive heart failure continue diuresis. BNP of 4800 diuresis as ordered Acute on chronic hypoxic and hypercapnic respiratory failure placed on BiPAP on admission. ABG is 7.32/70/82/35. Recheck ABG with improvement. Continue BiPAP at night. P.r.n. during daytime. Will taper off BiPAP cOVID RSV influenza negative. Chest x-ray with airspace opacity mid and lower lung zones consistent with pulmonary edema versus pneumonia. Small pleural effusions. CTA with moderate pulmonary edema small pleural effusions no PE. Continue diuresis Hematuria: Likely traumatic while catheter was exchanged in the ER. Will continue to monitor Atrial fibrillation on diltiazem Recent cellulitis on Zyvox and Augmentin which will be continued WBC count has normalized today Urethral drainage: Swabbed. Likely need Mccarty change and routine Mccarty care. Already on Augmentin and Zyvox. To ulceration which is reported be chronic per patient. X-rays negative dVT prophylaxis apixaban Code status full code Subjective Date/time seen: 01/16/23 16:00 Interval history: Patient presented from the halfway with altered mental status. Workup edema bone pleural effusion with hypercapnia on ABGs. Placed on BiPAP uses oxygen at baseline via nasal cannula. Continues to remain confused. A dose of Lasix was given. Underlying history of chronic kidney disease atrial fibrillation diabetes morbid obesity urinary retention and on Mccarty catheter. Workup revealed WBC 10.4 mild anemia 10.6 creatinine 1.3 troponin negative LFT normal on Bumex at home. Chronic indwelling catheter Right thyroid nodule thyroid ultrasound as an outpatient Acute on chronic congestive heart failure continue diuresis. BNP of 4800 Acute on chronic hypoxic and hypercapnic respiratory failure placed on BiPAP on admission. ABG is 7.32/70/82/35. Will recheck ABG. COVID RSV influenza negative. Chest x-ray with airspace opacity mid and lower lung zones consistent with pulmonary edema versus pneumonia. Small pleural effusions. CTA with moderate pulmonary edema small pleural effusions no PE. Hematuria: Likely traumatic while catheter was exchanged
[2023-01-16 17:21] LABS: Glucose Point of Care 164 mg/dl (65-105)
[2023-01-16] MEDS: BUMETANIDE 1 MG TABLET PO (18:00)
[2023-01-16] MEDS: ATORVASTATIN 20 MG TABLET PO (20:10)
[2023-01-16 20:37] LABS: Glucose Point of Care 173 mg/dl (65-105)
[2023-01-17] VITALS (22 sets, daily range): BP systolic 103–124; BP diastolic 56–83; PULSE 70–100; RESP 18–22; TEMP 36.3–36.5; O2SAT 93–100; BMI 10.0
[2023-01-17 05:28] LABS: Basophils Percent Auto 0.4 % (0.2-1.2); Eosinophils Absolute Auto 0.2 K/mm3 (0-0.3); Eosinophils Percent Auto 2.6 % (0-4.4); Hematocrit 36.1 % (42.0-52.0); Hemoglobin 10.9 g/dL (14.0-18.0); Immature Granulocyte Absolute 0.07 K/mm3 (0.00-0.031); Immature Granulocyte Percent A 0.9 % (0-0.5); Lymphocytes Absolute Auto 1.36 K/mm3 (0.9-3.2); Lymphocytes Percent Auto 17.7 % (18.3-44.2); Mean Corpuscular HGB Conc 30.2 g/dl (32-36); Mean Corpuscular Hemoglobin 29.7 pg (26-34); Mean Corpuscular Volume 98.4 fl (80-100); Mean Platelet Volume 9.6 fl (7.4-10.4); Monocytes Absolute Auto 0.7 K/mm3 (0.1-0.6); Monocytes Percent Auto 8.7 % (2.6-8.5); Neutrophils Absolute Auto 5.4 K/mm3 (1.3-6.7); Neutrophils Percent Auto 69.7 % (45.5-73.1); Platelet Count Result 216 k/mm3 (150-375); Red Blood Count 3.67 M/mm3 (4.6-6.20); Red Cell Distribution Width 13.2 % (11.5-14.5); White Blood Count 7.7 K/mm3 (4.5-10.0)
[2023-01-17 05:40] LABS: Alanine Aminotransferase 22 U/L (6-50); Albumin Level 3.3 g/dL (3.5-5.1); Alkaline Phosphatase 65 U/L (38-126); Aspartate Amino Transferase 28 U/L (17-59); Bilirubin,Total 0.7 mg/dL (0.2-1.3); Blood Urea Nitrogen 34 mg/dL (9-20); Calcium 9.4 mg/dL (8.4-10.2); Carbon Dioxide > 40 mmol/L (22-30); Chloride 88 mmol/L (98-107); Estimated CRCL calculation 47 ml/min; Estimated Glomerular Filt Rate 43; Glucose 149 mg/dL (65-110); Potassium 4.6 mmol/L (3.4-5.0); Sodium 134 mmol/L (137-145)
[2023-01-17 05:57] LABS: Alveolar/Arterial O2 Gradient 81.4 mmHg; Base Excess ABG 15.9 mEq/l (+/-2.0); Fractional Inspired Oxygen 35 %; HCO3 ABG 43.8 mEq/l (22.0-26.0); Oxygen Content ABG 16.5 %vol (16.0-22.0); Oxygen Saturation ABG 96.1 % (95.0-100.0); Oxyhemoglobin 94.8 % THb (90.0-100.0); PO2 ABG 85.2 mmHg (80.0-100.0); PO2 FiO2 Ratio Arterial Blood 2.43 %; Total Hemoglobin 12.3 g/dL (12.0-18.0); pH ABG 7.406 (7.350-7.450)
[2023-01-17 05:58] LABS: Device NON-INVASIVE VENT; Modified Allen's Test Pass; PCO2 ABG 71.4 mmHg (35.0-45.0); Site Drawn RIGHT RADIAL
[2023-01-17 05:59] LABS: Non-Invasive Expiratory Pressure 8 CMH2O; Non-Invasive Inspiratory Pressure 16 CMH2O; Non-Invasive Vent Rate 18 /MIN
[2023-01-17] MEDS: LEVOTHYROXINE SODIUM 50 MCG TABLET PO (06:24)
[2023-01-17] MEDS: PANTOPRAZOLE 40 MG TABLET PO (09:13)
[2023-01-17] MEDS: dilTIAZem HCL CD 180 MG CAP.24HR PO (09:13)
[2023-01-17] MEDS: APIXABAN 5 MG TABLET PO ×2 (09:13→20:04)
[2023-01-17] MEDS: ASPIRIN 81 MG CHEWABLE TABLET PO (09:13)
[2023-01-17] MEDS: AMOXICILLIN/CLAVULANATE K 875-125 MG TAB 1 TABLET PO ×2 (09:13→20:04)
[2023-01-17] MEDS: BUMETANIDE 1 MG TABLET PO ×2 (09:13→16:42)
[2023-01-17] MEDS: METOPROLOL SUCCINATE EXT REL 50 MG TABCR PO (09:13)
[2023-01-17] MEDS: LORATADINE 10 MG TABLET PO (09:14)
[2023-01-17] MEDS: LINEZOLID 600 MG TABLET PO ×2 (09:14→20:04)
[2023-01-17 09:19] LABS: Glucose Point of Care 139 mg/dl (65-105)
[2023-01-17] MEDS: TOLNAFTATE 1% POWDER 45 GM BTL 1 APPLIC TOPICAL ×2 (09:22→20:04)
[2023-01-17] MEDS: MUPIROCIN 2% OINT 22 GM TUBE 1 APPLIC TOPICAL (09:22)
[2023-01-17] MEDS: ALBUTEROL SULFATE NEB 2.5 MG/3 ML INH INHALATION ×3 (09:52→20:45)
[2023-01-17 11:55] LABS: Glucose Point of Care 275 mg/dl (65-105)
[2023-01-17] MEDS: INSULIN ASPART (*BKC) 100 UNITS/ML SUB-Q ×2 (14:27→16:43)
[2023-01-17 14:32] LABS: Glucose Point of Care 238 mg/dl (65-105)
--- NOTE | 2023-01-17 14:56 | PCCCNOTE ---
On 01/17/23, the student, Simona Brito, provided care and completed [facility] documentation on this patient. I have reviewed the student's documentation and agree with the findings.
--- NOTE | 2023-01-17 16:37 | PM.IMPN ---
Progress Note: A&P Assessment and Plan (1) Acute respiratory failure with hypercapnia: Code(s): J96.02 - Acute respiratory failure with hypercapnia Status: Acute (2) Urinary retention: Code(s): R33.9 - Retention of urine, unspecified Status: Acute (3) Leukocytosis: Qualifiers: Leukocytosis type: unspecified Qualified Code(s): D72.829 - Elevated white blood cell count, unspecified Code(s): D72.829 - Elevated white blood cell count, unspecified Status: Acute (4) Morbid obesity: Code(s): E66.01 - Morbid (severe) obesity due to excess calories Status: Acute (5) Chronic kidney disease: Code(s): N18.9 - Chronic kidney disease, unspecified Status: Acute (6) Diabetes mellitus: Code(s): E11.9 - Type 2 diabetes mellitus without complications Status: Acute (7) Pleural effusion: Code(s): J90 - Pleural effusion, not elsewhere classified Status: Acute Plan Patient presented from the senior care with altered mental status. Workup revealed pleural effusion with hypercapnia on ABGs. Placed on BiPAP uses oxygen at baseline via nasal cannula. Continues to remain confused. A dose of Lasix was given. Underlying history of chronic kidney disease atrial fibrillation diabetes morbid obesity urinary retention and on Mccarty catheter. Workup revealed WBC 10.4 mild anemia 10.6 creatinine 1.3 troponin negative LFT normal on Bumex at home. Will switch to Bumex IV. Creatinine slightly bumped today will switch back to oral Bumex leg swelling has improved Chronic indwelling catheter Right thyroid nodule thyroid ultrasound with TR for thyroid nodule. If possible will get the thyroid gland biopsy. Cannot do it as inpatient. Needs to be done as an outpatient basis Acute on chronic congestive heart failure continue diuresis. BNP of 4800 diuresis as ordered Acute on chronic hypoxic and hypercapnic respiratory failure placed on BiPAP on admission. ABG is 7.32/70/82/35. Recheck ABG with improvement. Continue BiPAP at night. P.r.n. during daytime. Will taper off BiPAP COVID RSV influenza negative. Chest x-ray with airspace opacity mid and lower lung zones consistent with pulmonary edema versus pneumonia. Small pleural effusions. CTA with moderate pulmonary edema small pleural effusions no PE. Continue diuresis. ABG with the persistent hypercapnia noted. Will have Pulmonary see if he will benefit from BiPAP support chronic hypercapnia with compensated metabolic alkalosis. No history of sleep apnea reported in the past Hematuria: Likely traumatic while catheter was exchanged in the ER. Will continue to monitor Atrial fibrillation on diltiazem Recent cellulitis on Zyvox and Augmentin which will be continued WBC count has normalized today Urethral drainage: Swabbed. Likely need Mccarty change and routine Mccarty care. Already on Augmentin and Zyvox. To ulceration which is reported be chronic per patient. X-rays negative dVT prophylaxis apixaban Code status full code Subjective Date/time seen: 01/17/23 16:37 Interval history: Patient presented from the senior care with altered mental status. Workup edema bone pleural effusion with hypercapnia on ABGs. Placed on BiPAP uses oxygen at baseline via nasal cannula. Continues to remain confused. A dose of Lasix was given. Underlying history of chronic kidney disease atrial fibrillation diabetes morbid obesity urinary retention and on Mccarty catheter. Workup revealed WBC 10.4 mild anemia 10.6 creatinine 1.3 troponin negative LFT normal on Bumex at home. Chronic indwelling catheter Right thyroid nodule thyroid ultrasound as an outpatient Acute on chronic congestive heart failure continue diuresis. BNP of 4800 Acute on chronic hypoxic and hypercapnic respiratory failure placed on BiPAP on admission. ABG is 7.32/70/82/35. Will recheck ABG. COVID RSV influenza negative. Chest x-ray with airspace opacity mid and lowe
[2023-01-17 19:23] LABS: Glucose Point of Care 208 mg/dl (65-105)
--- NOTE | 2023-01-17 19:59 | PM.CNPUL ---
Assessment and Plan Assessment and plan (1) Acute respiratory failure with hypercapnia: Code(s): J96.02 - Acute respiratory failure with hypercapnia Status: Acute Assessment and Plan: There may be some chronic underlying respiratory failure in addition to his acute decompensation. Echo needed. His home medication list includes albuterol for a nebulizer TID. He might have PFTs somewhere as an out patient. Maybe he could get PFTs if he gets back to a better baseline status. He does not have any COPD controller medications. Not sure he could use an inhaler effectively. Will try Trelegy, see if RT can get him to use properly. (2) Pleural effusion: Code(s): J90 - Pleural effusion, not elsewhere classified Status: Acute Assessment and Plan: Has small effusions that appear secondary to volume overload; has pulmonary edema on CTA chest Dec ; has no pulmonary embolus. He is not having symptoms that suggest pneumonia. I do not see an echo as far back as 2019. I will order echo to evaluate his left & right heart function. He was on the vent 3 weeks in 2019, chart says he smoked 15 years, quit many years ago. He may have cardiac dysfunction contributing to his respiratory failure. I agree with current efforts to diuresis him. Plan echocardiogram, evaluate LV and RV function see if he is a candidate for N.P.P.V. which might have more efficacy and be more comfortable compared to BiPAP; there is no sleep study in the [facility]. He has been in other hospitals, so his full medical record is not complete for out viewing. acetazolamide 500 mg IV BID x 2 doses to correct post hypercapnic metabolic alkalosis repeat ABG in am Trelegy one puff a day, see if treating underlying COPD helps CO2 retention. I will follow with you; thank you for the consult. History of Present Illness History of Present Illness Consult date: 01/17/23 Requesting physician: Sudhir Middleton MD Chief complaint: Heart Failure Exacerbation on Bipap Narrative: pt seen Jan 17 at 21:30 NEW: Hans Gaytan is a 72-year-old man with acute hypercapnic respiratory failure, Dr. Middleton asked me to see him regarding shortness of breath, abnormal ABGs, pCO2 elevated to 70s. He has a chart history indicating that he does not smoke. He has numerous medical co-morbidities, was on a vent for 3 weeks in 2019, was at [facility] in 2019 when he had resp failure, and he was at [facility] also 2019. In the ER Jan 13, he was not wearing O2. His admission photo to [facility] showed him wearing an O2 cannula. He is on oral Augmentin and Zyvox for recent cellulitis, managed by hospitalist. He is being diuresed for acute and chronic CHF, no echo available to review going back to 2019. ABG January 13, 2023 6 L oxygen; pH 7.32 pCO2 70.6, PO2 82.3, HC03 35.6; saturation 94.8% ABG January 14 36% oxygen pH 7.45, pCO2 64, PO2 83.7, bicarbonate 41.1; saturation 96.1% ABG January 14 on BiPAP 16/8, rate 18, 35% pH 7.406, pCO2 71.6, PO2 85.2, HC03 43.8; saturation 96% He wore PAP last night Jan 16; did not want to use it the entire night. He has blebs on his CT chest from Jan 13, suggestive of COPD; has small effusions and mediastinal and right hilar lymphadenopathy. When he was admitted from his NH, he had altered mentation. He uses O2 and BiPAP a the NH. It is not clear how compliant he is with this. PMH: 2019 was treated at [facility] in [place] for cardiac arrest due to respiratory failure, chronic afib, right foot osteomyelitis, CKD, vent 3 weeks, skilled SNF for 3 weeks 4 L O2, returned within hours, [facility], EF 50%; sbo and acute urinary retention treated at [facility]; upper extremity DVT, DM, anasarca. DATA * ABGs 01/13/23 * 01/13/[address] : There are blebs at the lung apices. The vin
[2023-01-17] MEDS: ATORVASTATIN 20 MG TABLET PO (20:04)
[2023-01-17 23:41] LABS: Glucose Point of Care 182 mg/dl (65-105)
[2023-01-18] VITALS (25 sets, daily range): BP systolic 113–133; BP diastolic 53–79; PULSE 76–97; RESP 17–24; TEMP 36–36.4; O2SAT 95–100
--- NOTE | 2023-01-18 | ECHO_ITS ---
Patient Info Name: Hans Gaytan Age: 72 years : 1950 Gender: Male Ht: 66 in Wt: 280 lbs BSA: 2.50 m2 HR: 82 bpm BP: 121 / 62 mmHg Heart Rhythm: Atrial Fibrillation Technical Quality: Good Exam Date: 01/18/2023 8:55 AM Exam Location: Echo Lab Patient Status: Inpatient Admit Date: 01/13/2023 Staff Ordering Physician: Sophia Dotson MD Customer Support Analyst: Robert Whitehead RDCS Attending Provider: Jeannine Pemberton MD Referring Physician: Mauri WATSON; Exam Type: CA echo doppler color flow Study Info Indications - looks like he has volum overload, high pco2 Complete two-dimensional, color flow and Doppler transthoracic echocardiogram is performed. Summary 1. Complete two-dimensional, color flow and Doppler transthoracic echocardiogram is performed. 2. Left ventricular chamber dimension is normal. 3. Left ventricular systolic function is normal, estimated at 50-55%. 4. There is moderately increased left ventricular wall thickness. 5. Right ventricular chamber dimension is normal. 6. Right ventricular systolic function is normal. 7. Left atrial chamber dimension is moderately enlarged. 8. Right atrial chamber dimension is moderately enlarged. 9. There is mild mitral valve regurgitation. 10. There is mild tricuspid valve regurgitation. 11. Estimated pulmonary arterial systolic pressure is 33 mmHg. 12. Normal inferior vena cava with >50% collapse upon inspiration consistent with normal right atrial pressure, 3 mmHg. 13. There is no pericardial effusion. Left Ventricle Left ventricular chamber dimension is normal. Left ventricular systolic function is normal, estimated at 50-55%. There is moderately increased left ventricular wall thickness. Left ventricular septal wall motion is abnormal with septal motion related to bundle branch block. The left ventricular diastolic function is indeterminate. Right Ventricle Right ventricular chamber dimension is normal. Right ventricular systolic function is normal. Left Atria Left atrial chamber dimension is moderately enlarged. Right Atria Right atrial chamber dimension is moderately enlarged. Atrial Septum Intact interatrial septum visualized by color flow imaging. Aortic Valve The aortic valve is probable trileaflet. There is no aortic valve stenosis. There is no aortic valve regurgitation. There is moderate aortic valve calcification. Pulmonic Valve The pulmonic valve is not well visualized. Mitral Valve The mitral valve has thickened leaflets. There is mild mitral valve regurgitation. Tricuspid Valve There is mild tricuspid valve regurgitation. Estimated pulmonary arterial systolic pressure is 33 mmHg. Pericardium/Pleural There is no pericardial effusion. Inferior Vena Cava Normal inferior vena cava with >50% collapse upon inspiration consistent with normal right atrial pressure, 3 mmHg. Aorta The aortic root size at the sinus of Valsalva is normal. Left Ventricular Outflow Tract Name Value Normal LVOT 2D LVOT Diameter 2.0 cm LVOT Doppler LVOT Peak Gradient 3 mmHg LVOT Mean Gradient 2 mmHg LVOT VTI 18 cm LVOT VTI/AV VTI Ratio
[2023-01-18 04:07] LABS: Basophils Percent Auto 0.5 % (0.2-1.2); Eosinophils Absolute Auto 0.2 K/mm3 (0-0.3); Eosinophils Percent Auto 2.4 % (0-4.4); Hematocrit 35.4 % (42.0-52.0); Hemoglobin 10.8 g/dL (14.0-18.0); Immature Granulocyte Absolute 0.09 K/mm3 (0.00-0.031); Immature Granulocyte Percent A 1.1 % (0-0.5); Lymphocytes Absolute Auto 1.35 K/mm3 (0.9-3.2); Lymphocytes Percent Auto 17.2 % (18.3-44.2); Mean Corpuscular HGB Conc 30.5 g/dl (32-36); Mean Corpuscular Hemoglobin 29.8 pg (26-34); Mean Corpuscular Volume 97.5 fl (80-100); Mean Platelet Volume 9.5 fl (7.4-10.4); Monocytes Absolute Auto 0.6 K/mm3 (0.1-0.6); Monocytes Percent Auto 8.1 % (2.6-8.5); Neutrophils Absolute Auto 5.6 K/mm3 (1.3-6.7); Neutrophils Percent Auto 70.7 % (45.5-73.1); Platelet Count Result 220 k/mm3 (150-375); Red Blood Count 3.63 M/mm3 (4.6-6.20); Red Cell Distribution Width 13.3 % (11.5-14.5); White Blood Count 7.9 K/mm3 (4.5-10.0)
[2023-01-18 04:16] LABS: Alanine Aminotransferase 25 U/L (6-50); Albumin Level 3.4 g/dL (3.5-5.1); Alkaline Phosphatase 68 U/L (38-126); Aspartate Amino Transferase 30 U/L (17-59); Bilirubin,Total 0.7 mg/dL (0.2-1.3); Blood Urea Nitrogen 38 mg/dL (9-20); Calcium 9.4 mg/dL (8.4-10.2); Carbon Dioxide > 40 mmol/L (22-30); Chloride 87 mmol/L (98-107); Estimated CRCL calculation 44 ml/min; Estimated Glomerular Filt Rate 40; Glucose 166 mg/dL (65-110); Magnesium 2.1 mg/dL (1.6-2.3); Potassium 4.5 mmol/L (3.4-5.0); Sodium 134 mmol/L (137-145)
[2023-01-18] MEDS: LEVOTHYROXINE SODIUM 50 MCG TABLET PO (06:03)
[2023-01-18 08:16] LABS: Glucose Point of Care 152 mg/dl (65-105)
[2023-01-18] MEDS: ASPIRIN 81 MG CHEWABLE TABLET PO (09:14)
[2023-01-18] MEDS: LINEZOLID 600 MG TABLET PO ×2 (09:49→20:26)
[2023-01-18] MEDS: BUMETANIDE 1 MG TABLET PO ×2 (09:49→17:00)
[2023-01-18] MEDS: dilTIAZem HCL CD 180 MG CAP.24HR PO (09:49)
[2023-01-18] MEDS: LORATADINE 10 MG TABLET PO (09:49)
[2023-01-18] MEDS: METOPROLOL SUCCINATE EXT REL 50 MG TABCR PO (09:49)
[2023-01-18] MEDS: PANTOPRAZOLE 40 MG TABLET PO (09:49)
[2023-01-18] MEDS: APIXABAN 5 MG TABLET PO ×2 (09:49→20:26)
[2023-01-18] MEDS: acetaZOLAMIDE SODIUM FOR INJ 500 MG VIAL IV PUSH ×2 (09:49→17:00)
[2023-01-18] MEDS: MUPIROCIN 2% OINT 22 GM TUBE 1 APPLIC TOPICAL (09:50)
[2023-01-18] MEDS: AMOXICILLIN/CLAVULANATE K 875-125 MG TAB 1 TABLET PO ×2 (09:50→20:26)
[2023-01-18] MEDS: ALBUTEROL SULFATE NEB 2.5 MG/3 ML INH INHALATION ×3 (10:14→20:58)
[2023-01-18] MEDS: FLUTICASONE/UMECLIDIN/VILANTER 100-62.5-25 MCG ELLIPTA 1 PUFF INHALATION (10:14)
[2023-01-18] MEDS: TOLNAFTATE 1% POWDER 45 GM BTL 1 APPLIC TOPICAL ×2 (11:24→20:27)
[2023-01-18 12:01] LABS: Glucose Point of Care 168 mg/dl (65-105)
[2023-01-18 13:51] LABS: Glucose Point of Care 190 mg/dl (65-105)
--- NOTE | 2023-01-18 14:52 | PCCCNOTE ---
On 01/18/23, the student, Simona Brito, provided care and completed [facility] documentation on this patient. I have reviewed the student's documentation and agree with the findings.
--- NOTE | 2023-01-18 15:12 | PM.IMPN ---
Progress Note: A&P Assessment and Plan (1) Acute respiratory failure with hypercapnia: Code(s): J96.02 - Acute respiratory failure with hypercapnia Status: Acute (2) Urinary retention: Code(s): R33.9 - Retention of urine, unspecified Status: Acute (3) Leukocytosis: Qualifiers: Leukocytosis type: unspecified Qualified Code(s): D72.829 - Elevated white blood cell count, unspecified Code(s): D72.829 - Elevated white blood cell count, unspecified Status: Acute (4) Morbid obesity: Code(s): E66.01 - Morbid (severe) obesity due to excess calories Status: Acute (5) Chronic kidney disease: Code(s): N18.9 - Chronic kidney disease, unspecified Status: Acute (6) Diabetes mellitus: Code(s): E11.9 - Type 2 diabetes mellitus without complications Status: Acute (7) Pleural effusion: Code(s): J90 - Pleural effusion, not elsewhere classified Status: Acute Plan 72-year-old male with past medical history of CKD, diabetes mellitus, AFib presented from the halfway with altered mental status. Workup revealed pleural effusion with hypercapnia was placed on BiPAP, uses oxygen at baseline but nasal cannula. 1. Acute on chronic hypoxic and hypercapnic respiratory failure: Continue BiPAP at night, p.r.n. during daytime COVID, RSV, influenza were negative CTA with moderate pulmonary edema small pleural effusions no PE Appreciate Pulmonary help Continue with Bumex Continue with Augmentin Reviewed echocardiogram 2. Atrial fibrillation: Continue with Cardizem Continue with Eliquis 3. History of chronic indwelling catheter: Mccarty care Urethral drainage was swabbed Continue with Augmentin and Zyvox 4. CKD: At baseline kidney function Avoid nephrotoxins Recheck BMP in a.m. 5. Right thyroid nodule: Outpatient follow-up for possible biopsy 6. Diabetes mellitus: Blood glucose checked t.i.d. a.c. and HS Continue with sliding scale insulin: Adjust dose as needed 7. Code status: Full 8. DVT prophylaxis on Eliquis 9. Disposition: Pending improvement Time Spent With Patient Time with patient: 15 - 25 minutes Subjective Date/time seen: 01/18/23 15:12 Interval history: No acute events overnight Review of Systems Review of Systems: All systems reviewed & are unremarkable except as noted in HPI and below Exam Narrative: General physical exam: morbidly obese patient, lying in bed nasal cannula, he is pleasantly confused Head/eyes: Atraumatic, EOMI, PERRLA ENT: Moist mucous membranes, nasal passages clear Neck: Supple, full range of motion, trachea midline CVS: S1 + S2, regular rate and rhythm, no murmurs Respiratory: Bilaterally decreased air entry in both lung herring, diminished breath sounds bilaterally Abdomen: Soft, non-tender, bowel sounds +ve, no organomegaly Extremities: No clubbing, no cyanosis, trace edema, no calf tenderness Musculoskeletal: Moves all, adequate range of motion, no muscle spasms Skin: Warm, dry, no jaundice, no cyanosis Neurological: Alert and oriented x2 no focal motor deficits generalized weakness Psychiatric: Normal mood and cooperative Objective Data Vital Signs Vital Signs: Vital Signs - 24 hr 01/17/23 15:15 01/17/23 15:26 01/17/23 15:53 Temperature 97.4 F L Pulse Rate 79 82 86 Respiratory Rate 18 18 18 Blood Pressure 115/56 L Pulse Oximetry 98 Oxygen Delivery Oxygen Flow Rate Fraction of Inspired Oxygen 01/17/23 16:00 01/17/23 18:00 01/17/23 20:30 Temperature 97.4 F L Pulse Rate 77 76 82 Respiratory Rate 20 Blood Pressure 103/83 Pulse Oximetry 100 Oxygen Delivery Oxygen Flow Rate Fraction of Inspired Oxygen 01/17/23 20:46 01/17/23 20:00 01/17/23 22:00 Temperature Pulse Rate 87 84 92 Respiratory Rate 18 Blood Pressure Pulse Oximetry Oxygen Delivery Oxygen Flow Rate Fraction of Inspired Oxygen
[2023-01-18] MEDS: INSULIN ASPART (*BKC) 100 UNITS/ML SUB-Q (17:00)
[2023-01-18 19:22] LABS: Glucose Point of Care 304 mg/dl (65-105)
[2023-01-18 20:24] LABS: Glucose Point of Care 187 mg/dl (65-105)
[2023-01-18] MEDS: ATORVASTATIN 20 MG TABLET PO (20:26)
--- NOTE | 2023-01-18 21:50 | PC.NURSE ---
This patient, Hans Gaytan, was transferred to [[id number] ] on 01/18/23 at 2150. Personal belongings sent with patient. Report given to [Vin RN ]. Appropriate documentation sent with patient.
[2023-01-19] VITALS (22 sets, daily range): BP systolic 108–125; BP diastolic 66–76; PULSE 70–87; RESP 14–20; TEMP 36.4–36.5; O2SAT 96–100
[2023-01-19 05:52] LABS: Basophils Absolute Auto 0.1 K/mm3 (0.0-0.1); Basophils Percent Auto 0.6 % (0.2-1.2); Eosinophils Absolute Auto 0.2 K/mm3 (0-0.3); Eosinophils Percent Auto 2.2 % (0-4.4); Hematocrit 36.3 % (42.0-52.0); Hemoglobin 10.9 g/dL (14.0-18.0); Immature Granulocyte Absolute 0.06 K/mm3 (0.00-0.031); Immature Granulocyte Percent A 0.8 % (0-0.5); Lymphocytes Absolute Auto 1.33 K/mm3 (0.9-3.2); Mean Corpuscular Hemoglobin 29.4 pg (26-34); Mean Corpuscular Volume 97.8 fl (80-100); Mean Platelet Volume 9.8 fl (7.4-10.4); Monocytes Absolute Auto 0.6 K/mm3 (0.1-0.6); Monocytes Percent Auto 8.1 % (2.6-8.5); Neutrophils Absolute Auto 5.6 K/mm3 (1.3-6.7); Neutrophils Percent Auto 71.3 % (45.5-73.1); Platelet Count Result 213 k/mm3 (150-375); Red Blood Count 3.71 M/mm3 (4.6-6.20); Red Cell Distribution Width 13.6 % (11.5-14.5); White Blood Count 7.8 K/mm3 (4.5-10.0)
[2023-01-19 05:56] LABS: Alanine Aminotransferase 42 U/L (6-50); Albumin Level 3.5 g/dL (3.5-5.1); Alkaline Phosphatase 66 U/L (38-126); Anion Gap 3 mmol/L (8-16); Aspartate Amino Transferase 43 U/L (17-59); Bilirubin,Total 0.6 mg/dL (0.2-1.3); Blood Urea Nitrogen 38 mg/dL (9-20); Calcium 9.4 mg/dL (8.4-10.2); Carbon Dioxide 39 mmol/L (22-30); Chloride 92 mmol/L (98-107); Estimated CRCL calculation 36 ml/min; Estimated Glomerular Filt Rate 31; Glucose 197 mg/dL (65-110); Magnesium 2.2 mg/dL (1.6-2.3); Potassium 4.4 mmol/L (3.4-5.0); Sodium 134 mmol/L (137-145)
[2023-01-19] MEDS: LEVOTHYROXINE SODIUM 50 MCG TABLET PO (06:28)
[2023-01-19] MEDS: ALBUTEROL SULFATE NEB 2.5 MG/3 ML INH INHALATION ×3 (08:13→19:53)
[2023-01-19 08:34] LABS: Glucose Point of Care 170 mg/dl (65-105)
[2023-01-19] MEDS: FLUTICASONE/UMECLIDIN/VILANTER 100-62.5-25 MCG ELLIPTA 1 PUFF INHALATION (09:15)
[2023-01-19] MEDS: ASPIRIN 81 MG CHEWABLE TABLET PO (10:08)
[2023-01-19] MEDS: LORATADINE 10 MG TABLET PO (10:09)
[2023-01-19] MEDS: AMOXICILLIN/CLAVULANATE K 875-125 MG TAB 1 TABLET PO (10:09)
[2023-01-19] MEDS: dilTIAZem HCL CD 180 MG CAP.24HR PO (10:09)
[2023-01-19] MEDS: LINEZOLID 600 MG TABLET PO (10:09)
[2023-01-19] MEDS: PANTOPRAZOLE 40 MG TABLET PO (10:09)
[2023-01-19] MEDS: APIXABAN 5 MG TABLET PO ×2 (10:09→20:33)
[2023-01-19] MEDS: TOLNAFTATE 1% POWDER 45 GM BTL 1 APPLIC TOPICAL ×2 (10:10→20:33)
[2023-01-19] MEDS: MUPIROCIN 2% OINT 22 GM TUBE 1 APPLIC TOPICAL (10:10)
[2023-01-19] MEDS: METOPROLOL SUCCINATE EXT REL 50 MG TABCR PO (10:10)
[2023-01-19] MEDS: acetaZOLAMIDE SODIUM FOR INJ 500 MG VIAL IV PUSH (10:11)
[2023-01-19 12:09] LABS: Glucose Point of Care 268 mg/dl (65-105)
--- NOTE | 2023-01-19 12:28 | PM.IMPN ---
Progress Note: A&P Assessment and Plan (1) Acute respiratory failure with hypercapnia: Code(s): J96.02 - Acute respiratory failure with hypercapnia Status: Acute (2) Urinary retention: Code(s): R33.9 - Retention of urine, unspecified Status: Acute (3) Leukocytosis: Qualifiers: Leukocytosis type: unspecified Qualified Code(s): D72.829 - Elevated white blood cell count, unspecified Code(s): D72.829 - Elevated white blood cell count, unspecified Status: Acute (4) Morbid obesity: Code(s): E66.01 - Morbid (severe) obesity due to excess calories Status: Acute (5) Chronic kidney disease: Code(s): N18.9 - Chronic kidney disease, unspecified Status: Acute (6) Diabetes mellitus: Code(s): E11.9 - Type 2 diabetes mellitus without complications Status: Acute (7) Pleural effusion: Code(s): J90 - Pleural effusion, not elsewhere classified Status: Acute Plan 72-year-old male with past medical history of CKD, diabetes mellitus, AFib presented from the intermediate with altered mental status. Workup revealed pleural effusion with hypercapnia was placed on BiPAP, uses oxygen at baseline but nasal cannula. 1. Acute on chronic hypoxic and hypercapnic respiratory failure: Continue BiPAP at night, p.r.n. during daytime COVID, RSV, influenza were negative CTA with moderate pulmonary edema small pleural effusions no PE Appreciate Pulmonary help Will hold Bumex today due to worsening kidney function Reviewed echocardiogram 2. Atrial fibrillation: Continue with Cardizem Continue with Eliquis 3. History of chronic indwelling catheter: Mccarty care Urethral drainage was swabbed Growing E coli and Klebsiella which seems to be very resistant Will stop Zyvox and Augmentin Start on meropenem based on the sensitivity 4. PIPE on cKD: Worsening kidney function obtain renal ultrasound Will hold Bumex today Avoid nephrotoxins Will get Nephrology consult Will hold acetazolamide as well 5. Right thyroid nodule: Outpatient follow-up for possible biopsy 6. Diabetes mellitus: Blood glucose checked t.i.d. a.c. and HS Continue with sliding scale insulin: Adjust dose as needed 7. Code status: Full 8. DVT prophylaxis on Eliquis 9. Disposition: Pending improvement Time Spent With Patient Time with patient: 15 - 25 minutes Subjective Date/time seen: 01/19/23 12:28 Interval history: No acute events overnight Review of Systems Review of Systems: All systems reviewed & are unremarkable except as noted in HPI and below Exam Narrative: General physical exam: morbidly obese patient, lying in bed nasal cannula, he is pleasantly confused Head/eyes: Atraumatic, EOMI, PERRLA ENT: Moist mucous membranes, nasal passages clear Neck: Supple, full range of motion, trachea midline CVS: S1 + S2, regular rate and rhythm, no murmurs Respiratory: Bilaterally decreased air entry in both lung herring, diminished breath sounds bilaterally Abdomen: Soft, non-tender, bowel sounds +ve, no organomegaly Extremities: No clubbing, no cyanosis, trace edema, no calf tenderness Musculoskeletal: Moves all, adequate range of motion, no muscle spasms Skin: Warm, dry, no jaundice, no cyanosis Neurological: Alert and oriented x2 no focal motor deficits generalized weakness Psychiatric: Normal mood and cooperative Objective Data Vital Signs Vital Signs: Vital Signs - 24 hr 01/18/23 14:00 01/18/23 14:49 01/18/23 14:59 Temperature Pulse Rate 90 86 89 Respiratory Rate 20 20 Blood Pressure Pulse Oximetry Oxygen Delivery Oxygen Flow Rate 01/18/23 16:00 01/18/23 16:00 01/18/23 18:00 Temperature 96.8 F L Pulse Rate 91 97 78 Respiratory Rate 22 H Blood Pressure 114/57 L Pulse Oximetry 95 Oxygen Delivery Oxygen Flow Rate 01/18/23 20:00 01/18/23 21:00 01/18/23 21:34 Temperature 97.6 F Pulse Rate 81 85 87 Re
[2023-01-19] MEDS: INSULIN ASPART (*BKC) 100 UNITS/ML SUB-Q (12:33)
--- NOTE | 2023-01-19 13:45 | PM.CNNEP ---
Assessment and Plan Assessment and plan (1) PIPE (acute kidney injury): Code(s): N17.9 - Acute kidney failure, unspecified Status: Acute Assessment and Plan: normal creatinine on admission (1.0 - 1.3mg/dl) however, may have an element of CKD based on previous lab results suspect rise in creatinie due to necessity of IV diuretic therapy in the context of contrast exposure (CTA on chest on 01/16) follow-up on renal ultrasound check CPK and urine studies follow repeat labs and UOP (2) Acute respiratory failure with hypercapnia: Code(s): J96.02 - Acute respiratory failure with hypercapnia Status: Acute Assessment and Plan: Pulmonary following COVID, RSV, influenza testing negative CT of chest with moderate pulmonary edema small pleural effusions but no PE was on diuretic therapy holding diuretics due to #1 follow respiratory status (3) Chronic indwelling Mccarty catheter: Code(s): Z97.8 - Presence of other specified devices Status: Chronic Assessment and Plan: presuably due to chronic urinary retention UA negative for infection however, urethral drainage noted on admission uretheral drainage swab with E coli and Klebsiella on antibiotics (4) Atrial fibrillation: Qualifiers: Atrial fibrillation type: unspecified Qualified Code(s): I48.91 - Unspecified atrial fibrillation Code(s): I48.91 - Unspecified atrial fibrillation Status: Chronic Assessment and Plan: continue rate control strategy on anticoagulation (5) Diabetes mellitus: Code(s): E11.9 - Type 2 diabetes mellitus without complications Status: Chronic Assessment and Plan: follow accu-cheks glycemic control per hospitalists I will continue follow the patient with you while he remains hospitalized and make further recommendations as needed. Thank you for allowing me to participate in the care of this patient. History of Present Illness Reason for Consult Consult date: 01/19/23 Reason for consult: acute renal failure Chief Complaint Chief complaint: Heart Failure Exacerbation on Bipap History of Present Illness Narrative: The patient is a 72-year-old male with a past medical history as outlined below who presented to [facility] Emergency room for further evaluation of altered mental status. The patient has been apparently residing in a nursing facility following a previous hospitalization at another institution for reportedly sepsis although the specifics of that hospitalization are not clear to me. In any case, the nursing staff at his facility apparently noted that the patient was not acting like his usual self and he was subsequently transferred to the ER for further assessment. Workup and evaluation in the emergency room demonstrated evidence of volume overload with imaging studies that showed bilateral pleural effusions and significant pulmonary edema. His ABG also demonstrated hypercapnia and so BiPAP therapy was initiated in the emergency room as well. Apparently, by report, he does use supplemental oxygen at baseline. Routine blood tests and labs demonstrated no significant findings. He was instituted on IV diuretic therapy and subsequently admitted to the hospital for further evaluation and therapy. Since his admission, he has responded to IV diuretic therapy with some improvement in his respiratory status but it continues to fluctuate. Pulmonary has been consulted is following the patient given his apparent acute on chronic respiratory failure. It has noted by recent labs that his kidney function has been deteriorating as well. Furthermore, the patient has a chronic indwelling Mccarty catheter and there was purulent discharge noted with the swabs of these cultures being positive and he is on antibiotic therapy for this infection but he does not appear to have a urinary tract infection. Renal consultation was
[2023-01-19] MEDS: MEROPENEM 500 MG in SODIUM CHLORIDE 0.9% IV 100 ML 200 ML IVPB ×2 (14:09→21:30)
--- NOTE | 2023-01-19 15:25 | PCOTNOTE ---
Patient refused to participate in OT treatment this P.M. Patient verbalized he is exhausted, tired and has already performed therapy earlier.
[2023-01-19 17:11] LABS: Glucose Point of Care 176 mg/dl (65-105)
--- NOTE | 2023-01-19 20:21 | PM.PNPUL ---
Progress Note: A&P Assessment and Plan (1) Acute respiratory failure with hypercapnia: Code(s): J96.02 - Acute respiratory failure with hypercapnia Status: Acute Assessment and Plan: He likely has chronic underlying respiratory failure in addition to his acute decompensation. Echo shows EF 50-55%, increased LV thickness, bi-atrial enlargement. Home medication list includes albuterol for a nebulizer TID. No PFTs available at this point. Maybe he could get PFTs if he gets back to a better baseline status. He does not have any COPD controller medications. Not sure he could use an inhaler effectively. Will try Trelegy, see if RT can get him to use properly. (2) Pleural effusion: Code(s): J90 - Pleural effusion, not elsewhere classified Status: Acute Assessment and Plan: Has small effusions that appear secondary to volume overload; has pulmonary edema on CTA chest Jan 13; has no pulmonary embolus. He is not having symptoms that suggest pneumonia. Echo shows EF 50-55%, not abnormally low. He was on the vent 3 weeks in 2019, chart says he smoked 15 years, quit many years ago. He may have cardiac dysfunction contributing to his respiratory failure. His diuretics are on hold with increase in BUN and creatinine, 38/2.1. Plan He may be a candidate for N.P.P.V. - non invasive positive pressure ventilator which is being investigated now. Many of these issues are dependent on ceverage, sepcifially which facility he will be going to at discharge. He has been in other hospitals, so his full medical record is not complete for out viewing. He had acetazolamide 500 mg IV BID x 2 doses to correct post hypercapnic metabolic alkalosis Trelegy one puff a day, see if treating underlying COPD helps CO2 retention. Subjective Date/time seen: 01/19/23 20:21 Interval history: hospital follow up : Jan 19: He is alert, not in distress; he is using BiPAP at night; he would be interested in having NPPV if it feels better. He is living in a facility right now, not sure but I think he was at home a while back. The nurse is Vin, and he was present when I visited the patient. The patient had his diuretics held today because of rising BUN/creat 38/2.1. 01/18/23- echo - EF 50-55%, biatrial enlargement, RV size and function ok. Jan 17; new consult: Hans Gaytan is a 72-year-old man with acute hypercapnic respiratory failure, Dr. Middleton asked me to see him regarding shortness of breath, abnormal ABGs, pCO2 elevated to 70s. He has a chart history indicating that he does not smoke. ? He has numerous medical co-morbidities, was on a vent for 3 weeks in 2019, was at [facility] in 2019 when he had resp failure, and he was at [facility] also 2019.? In the ER Jan 13, he was not wearing O2. His admission photo to [facility] showed him wearing an O2 cannula. He is on oral Augmentin and Zyvox for recent cellulitis, managed by hospitalist. He is being diuresed for acute and chronic CHF, no echo available to review going back to 2019.? ABG January 13, 2023 6 L oxygen; pH 7.32 pCO2 70.6, PO2 82.3, HC03 35.6; saturation 94.8% ABG January 14 36% oxygen pH 7.45, pCO2 64, PO2 83.7, bicarbonate 41.1; saturation 96.1% ABG January 14 on BiPAP 16/8, rate 18, 35% pH 7.406, pCO2 71.6, PO2 85.2, HC03 43.8; saturation 96% He wore PAP last night Jan 16; did not want to use it the entire night. He has blebs on his CT chest from Jan 13, suggestive of COPD; has small effusions and mediastinal and right hilar lymphadenopathy. When he was admitted from his NH, he had altered mentation. He uses O2 and BiPAP a the NH. It is not clear how compliant he is with this. PMH: 2019 was treated at [facility] in [place] for cardiac arrest due to respiratory failure, chronic afib, right foot osteomyelitis, CKD, vent 3 weeks, skilled SNF for 3 weeks 4 L O2, returned within hours, COVID admitted to [facility], EF 50%; sbo and acute urinary retention treated at [place]; upper extremity DVT, DM,
[2023-01-19] MEDS: ATORVASTATIN 20 MG TABLET PO (20:33)
[2023-01-19 22:50] LABS: Appearance Urine Clear (Clear); Bilirubin Urine Negative (Negative); Blood Urine Negative (Negative); Color Urine Yellow (Yellow); Glucose Urine UA Negative (Negative); Ketones Urine Negative (Negative); Leukocyte Esterase Ur Negative LEU/UL (Negative); Nitrate Urine Negative (Negative); Protein Urine Negative (Negative); Specific Grav Ur 1.016 (1.001-1.035); Urobilinogen Urine 0.2 mg/dL (<2.0)
[2023-01-19 22:53] LABS: Add Urine Microscopic? NO
[2023-01-19 23:11] LABS: Creatinine Urine 69.8 mg/dL; Total Protein Urine Random 13 mg/dL; Ur Ttl Prot Creatinine Ratio 0.19 mg/mg (0-0.20); Urea Random Urine 719 MG/DL
[2023-01-19 23:17] LABS: Sodium Urine Random 98 meq/L
[2023-01-20] VITALS (19 sets, daily range): BP systolic 108–128; BP diastolic 50–78; PULSE 54–113; RESP 16–20; TEMP 36.3–36.7; O2SAT 97–100
[2023-01-20 01:02] LABS: Eosinophil Urine Rare % (None Seen); Urine Eos QC 2nd Tech Confirmed
[2023-01-20 01:28] LABS: Glucose Point of Care 209 mg/dl (65-105)
[2023-01-20] MEDS: MEROPENEM 500 MG in SODIUM CHLORIDE 0.9% IV 100 ML 200 ML IVPB ×3 (05:18→22:20)
[2023-01-20] MEDS: LEVOTHYROXINE SODIUM 50 MCG TABLET PO (05:26)
[2023-01-20 05:56] LABS: Basophils Percent Auto 0.3 % (0.2-1.2); Eosinophils Absolute Auto 0.2 K/mm3 (0-0.3); Eosinophils Percent Auto 1.2 % (0-4.4); Hematocrit 34.8 % (42.0-52.0); Hemoglobin 10.6 g/dL (14.0-18.0); Immature Granulocyte Absolute 0.05 K/mm3 (0.00-0.031); Immature Granulocyte Percent A 0.4 % (0-0.5); Lymphocytes Absolute Auto 1.57 K/mm3 (0.9-3.2); Lymphocytes Percent Auto 12.5 % (18.3-44.2); Mean Corpuscular HGB Conc 30.5 g/dl (32-36); Mean Corpuscular Hemoglobin 29.8 pg (26-34); Mean Corpuscular Volume 97.8 fl (80-100); Mean Platelet Volume 9.5 fl (7.4-10.4); Monocytes Absolute Auto 0.8 K/mm3 (0.1-0.6); Neutrophils Percent Auto 79.6 % (45.5-73.1); Platelet Count Result 191 k/mm3 (150-375); Red Blood Count 3.56 M/mm3 (4.6-6.20); Red Cell Distribution Width 13.3 % (11.5-14.5); White Blood Count 12.6 K/mm3 (4.5-10.0)
[2023-01-20 06:15] LABS: Alanine Aminotransferase 46 U/L (6-50); Albumin Level 3.5 g/dL (3.5-5.1); Alkaline Phosphatase 67 U/L (38-126); Anion Gap 2 mmol/L (8-16); Aspartate Amino Transferase 40 U/L (17-59); Bilirubin,Total 0.9 mg/dL (0.2-1.3); Blood Urea Nitrogen 36 mg/dL (9-20); Calcium 9.6 mg/dL (8.4-10.2); Carbon Dioxide 34 mmol/L (22-30); Chloride 93 mmol/L (98-107); Creatine Kinase < 20 U/L (55-170); Estimated CRCL calculation 42 ml/min; Estimated Glomerular Filt Rate 37; Glucose 161 mg/dL (65-110); Magnesium 2.3 mg/dL (1.6-2.3); Potassium 4.3 mmol/L (3.4-5.0); Sodium 129 mmol/L (137-145)
--- NOTE | 2023-01-20 08:45 | PCNWS ---
Weekly nutritional screen. Patient is tolerating current diet with adequate intake. No nutritional needs at this time.
[2023-01-20 08:51] LABS: Glucose Point of Care 144 mg/dl (65-105)
[2023-01-20] MEDS: METOPROLOL SUCCINATE EXT REL 50 MG TABCR PO (09:37)
[2023-01-20] MEDS: ASPIRIN 81 MG CHEWABLE TABLET PO (09:37)
[2023-01-20] MEDS: PANTOPRAZOLE 40 MG TABLET PO (09:38)
[2023-01-20] MEDS: dilTIAZem HCL CD 180 MG CAP.24HR PO (09:38)
[2023-01-20] MEDS: APIXABAN 5 MG TABLET PO ×2 (09:38→20:30)
[2023-01-20] MEDS: LORATADINE 10 MG TABLET PO (09:38)
[2023-01-20] MEDS: ALBUTEROL SULFATE NEB 2.5 MG/3 ML INH INHALATION ×3 (10:08→20:11)
[2023-01-20] MEDS: FLUTICASONE/UMECLIDIN/VILANTER 100-62.5-25 MCG ELLIPTA 1 PUFF INHALATION (10:18)
--- NOTE | 2023-01-20 11:15 | PM.PNNEP ---
Progress Note: A&P Assessment and Plan (1) PIPE (acute kidney injury): Code(s): N17.9 - Acute kidney failure, unspecified Status: Acute Assessment and Plan: improvement noted normal creatinine on admission (1.0 - 1.3mg/dl) however, may have an element of CKD based on previous lab results suspect rise in creatinine due to necessity of IV diuretic therapy in the context of contrast exposure (CTA on chest on 01/16) evaluation to date: renal ultrasound unremarkable urine electrolytes non-prerenal rare urine eosinophils - suspect secondary to inflammation in urethra (see wound culture results) CPK low follow repeat labs and UOP (2) Acute respiratory failure with hypercapnia: Code(s): J96.02 - Acute respiratory failure with hypercapnia Status: Acute Assessment and Plan: Pulmonary following COVID, RSV, influenza testing negative CT of chest with moderate pulmonary edema small pleural effusions but no PE was on diuretic therapy holding diuretics due to #1 follow respiratory status (3) Chronic indwelling Mccarty catheter: Code(s): Z97.8 - Presence of other specified devices Status: Chronic Assessment and Plan: presuably due to chronic urinary retention UA negative for infection however, urethral drainage noted on admission uretheral drainage swab with E coli and Klebsiella on antibiotics (4) Atrial fibrillation: Qualifiers: Atrial fibrillation type: unspecified Qualified Code(s): I48.91 - Unspecified atrial fibrillation Code(s): I48.91 - Unspecified atrial fibrillation Status: Chronic Assessment and Plan: continue rate control strategy on anticoagulation (5) Diabetes mellitus: Code(s): E11.9 - Type 2 diabetes mellitus without complications Status: Chronic Assessment and Plan: follow accu-cheks glycemic control per hospitalists Will continue to follow. Subjective Date/time seen: 01/20/23 11:15 Interval history: Follow-up for acute kidney injury/acute renal failure Respiratory status/breathing seems relatively stable at this time; renal function somewhat better by recent testing; no apparent distress noted; no other issues/events overnight or earlier this morning. Exam Narrative: General: elderly but WD/WN male in NAD Heart: normal S1 and S2; no rub Lungs: clear anteriorly, decreased at bases Abdomen: soft, nontender, nondistended, positive bowel sounds Extremities: no cyanosis or clubbing; no edema Skin: warm and dry Objective Data Vital Signs Vital Signs: Vital Signs Temp Pulse Resp BP Pulse Ox O2 Del Method O2 Flow Rate 01/20/23 10:20 77 20 01/20/23 10:08 77 20 01/20/23 10:08 97 Nasal Cannula 3 01/20/23 09:37 76 01/20/23 09:36 76 108/72 01/20/23 04:00 62 01/20/23 00:00 65 01/19/23 20:00 72 01/19/23 23:00 70 20 99 BiPAP 01/20/23 03:06 97.6 F 54 L 20 120/50 L 99 01/20/23 00:00 97.4 F L 113 H 20 128/74 98 01/19/23 20:30 76 18 98 BiPAP 01/19/23 20:56 97.5 F L 74 20 108/66 100 01/19/23 20:20 98 Nasal Cannula 3 01/19/23 20:01 78 20 01/19/23 19:55 72 20 Intake/Output Intake/Output: Intake & Output 01/17/23 01/18/23 01/19/23 01/20/23 23:59 23:59 23:59 23:59 Intake Total 2200 2040 1080 580 Output Total 2100 3200 2150 600 Balance 100 -1160 -1070 -20 Meds/Results Medications: Active Medications Generic Name Dose Route Start Last Admin Trade Name Freq PRN Reason Stop Dose Admin Acetaminophen 650 mg 01/13/23 21:18 Acetaminophen 325 Mg Tablet PO Q4H PRN Mild Pain (1-3) or Fever Acetazolamide Sodium 500 mg 01/18/23 09:00 01/19/23 10:11 Acetazolamide Sodium For Inj 500 Mg Vial IV PUSH 500 mg BID LAURA Administration Albuterol 2.5 mg 01/14/23 08:00 01/20/23 13:39 Albuterol
--- NOTE | 2023-01-20 11:15 | P.PNNP_ITS ---
Progress Note: A&P Assessment and Plan (1) PIPE (acute kidney injury): Code(s): N17.9 - Acute kidney failure, unspecified Status: Acute Assessment and Plan: * improvement noted * normal creatinine on admission (1.0 - 1.3mg/dl) * however, may have an element of CKD based on previous lab results * suspect rise in creatinine due to necessity of IV diuretic therapy in the context of contrast exposure (CTA on chest on 01/16) * evaluation to date: * renal ultrasound unremarkable * urine electrolytes non-prerenal * rare urine eosinophils - suspect secondary to inflammation in urethra (see wound culture results) * CPK low * follow repeat labs and UOP (2) Acute respiratory failure with hypercapnia: Code(s): J96.02 - Acute respiratory failure with hypercapnia Status: Acute Assessment and Plan: * Pulmonary following * COVID, RSV, influenza testing negative * CT of chest with moderate pulmonary edema small pleural effusions but no PE * was on diuretic therapy * holding diuretics due to #1 * follow respiratory status (3) Chronic indwelling Mccarty catheter: Code(s): Z97.8 - Presence of other specified devices Status: Chronic Assessment and Plan: * presuably due to chronic urinary retention * UA negative for infection * however, urethral drainage noted on admission * uretheral drainage swab with E coli and Klebsiella * on antibiotics (4) Atrial fibrillation: Qualifiers: Atrial fibrillation type: unspecified Qualified Code(s): I48.91 - Unspecified atrial fibrillation Code(s): I48.91 - Unspecified atrial fibrillation Status: Chronic Assessment and Plan: * continue rate control strategy * on anticoagulation (5) Diabetes mellitus: Code(s): E11.9 - Type 2 diabetes mellitus without complications Status: Chronic Assessment and Plan: * follow accu-cheks * glycemic control per hospitalists Will continue to follow. Subjective Date/time seen: 01/20/23 11:15 Interval history: Follow-up for acute kidney injury/acute renal failure Respiratory status/breathing seems relatively stable at this time; renal function somewhat better by recent testing; no apparent distress noted; no other issues/events overnight or earlier this morning. Exam Narrative: General: elderly but WD/WN male in NAD Heart: normal S1 and S2; no rub Lungs: clear anteriorly, decreased at bases Abdomen: soft, nontender, nondistended, positive bowel sounds Extremities: no cyanosis or clubbing; no edema Skin: warm and dry Objective Data Vital Signs Vital Signs: Vital Signs Temp Pulse Resp BP Pulse Ox O2 Del Method O2 Flow Rate 01/20/23 10:20 77 20 01/20/23 10:08 77 20 01/20/23 10:08 97 Nasal Cannula 3 01/20/23 09:37 76 01/20/23 09:36 76 108/72 01/20/23 04:00 62 01/20/23 00:00 65 01/19/23 20:00 72 01/19/23 23:00 70 20 99 BiPAP 01/20/23 03:06 97.6 F 54 L 20 120/50 L 99 01/20/23 00:00 97.4 F L 113 H 20 128/74 98 01/19/23 20:30 76 18 98 BiPAP 01/19/23 20:56 97.5 F L 74 20 108/66 100 01/19/23 20:20 98 Nasal Cannula 3 01/19/23 20:01 78 20 01/19/23 19:55 72 2
[2023-01-20 12:13] LABS: Glucose Point of Care 202 mg/dl (65-105)
[2023-01-20] MEDS: INSULIN ASPART (*BKC) 100 UNITS/ML SUB-Q (12:24)
[2023-01-20] MEDS: TOLNAFTATE 1% POWDER 45 GM BTL 1 APPLIC TOPICAL ×2 (12:30→20:30)
[2023-01-20] MEDS: MUPIROCIN 2% OINT 22 GM TUBE 1 APPLIC TOPICAL (12:30)
--- NOTE | 2023-01-20 13:55 | PM.IMPN ---
Progress Note: A&P Assessment and Plan (1) Acute respiratory failure with hypercapnia: Code(s): J96.02 - Acute respiratory failure with hypercapnia Status: Acute (2) Urinary retention: Code(s): R33.9 - Retention of urine, unspecified Status: Acute (3) Leukocytosis: Qualifiers: Leukocytosis type: unspecified Qualified Code(s): D72.829 - Elevated white blood cell count, unspecified Code(s): D72.829 - Elevated white blood cell count, unspecified Status: Acute (4) Morbid obesity: Code(s): E66.01 - Morbid (severe) obesity due to excess calories Status: Acute (5) Chronic kidney disease: Code(s): N18.9 - Chronic kidney disease, unspecified Status: Acute (6) Diabetes mellitus: Code(s): E11.9 - Type 2 diabetes mellitus without complications Status: Acute (7) Pleural effusion: Code(s): J90 - Pleural effusion, not elsewhere classified Status: Acute Plan 72-year-old male with past medical history of CKD, diabetes mellitus, AFib presented from the halfway with altered mental status. Workup revealed pleural effusion with hypercapnia was placed on BiPAP, uses oxygen at baseline but nasal cannula. 1. Acute on chronic hypoxic and hypercapnic respiratory failure: Continue BiPAP at night, p.r.n. during daytime COVID, RSV, influenza were negative CTA with moderate pulmonary edema small pleural effusions no PE Appreciate Pulmonary help Will hold Bumex today due to worsening kidney function Reviewed echocardiogram 2. Atrial fibrillation: Continue with Cardizem Continue with Eliquis 3. History of chronic indwelling catheter: Mccarty care Urethral drainage was swabbed Growing E coli and Klebsiella which seems to be very resistant Will stop Zyvox and Augmentin Continue with meropenem based on the sensitivity New leukocytosis noted, will monitor closely 4. PIPE on cKD: Worsening kidney function renal ultrasound unremarkable Will hold Bumex today Avoid nephrotoxins Appreciate nephrology consult Will hold acetazolamide as well Noted hyponatremia 5. Right thyroid nodule: Outpatient follow-up for possible biopsy 6. Diabetes mellitus: Blood glucose checked t.i.d. a.c. and HS Continue with sliding scale insulin: Adjust dose as needed 7. Code status: Full 8. DVT prophylaxis on Eliquis 9. Disposition: Pending improvement Time Spent With Patient Time with patient: 15 - minutes Subjective Date/time seen: 01/20/23 13:55 Interval history: No acute events overnight, no major change clinically Review of Systems Review of Systems: All systems reviewed & are unremarkable except as noted in HPI and below Exam Narrative: General physical exam: morbidly obese patient, lying in bed nasal cannula, he is pleasantly confused Head/eyes: Atraumatic, EOMI, PERRLA ENT: Moist mucous membranes, nasal passages clear Neck: Supple, full range of motion, trachea midline CVS: S1 + S2, regular rate and rhythm, no murmurs Respiratory: Bilaterally decreased air entry in both lung herring, diminished breath sounds bilaterally Abdomen: Soft, non-tender, bowel sounds +ve, no organomegaly Extremities: No clubbing, no cyanosis, trace edema, no calf tenderness Musculoskeletal: Moves all, adequate range of motion, no muscle spasms Skin: Warm, dry, no jaundice, no cyanosis Neurological: Alert and oriented x2 no focal motor deficits generalized weakness Psychiatric: Normal mood and cooperative Objective Data Vital Signs Vital Signs: Vital Signs - 24 hr 01/19/23 15:05 01/19/23 15:14 01/19/23 16:00 Temperature 97.7 F Pulse Rate 77 79 70 Respiratory Rate 20 20 18 Blood Pressure 124/76 Pulse Oximetry 98 Oxygen Delivery Oxygen Flow Rate Fraction of Inspired Oxygen 01/19/23 16:00 01/19/23 19:55 01/19/23 20:01 Temperature Pulse Rate 87 72 78 Respiratory Rate 20 20 Blood Pressure Pulse Oximetry O
--- NOTE | 2023-01-20 14:32 | PM.PNPUL ---
Progress Note: A&P Assessment and Plan (1) Acute respiratory failure with hypercapnia: Code(s): J96.02 - Acute respiratory failure with hypercapnia Status: Acute Assessment and Plan: He likely has chronic underlying respiratory failure in addition to his acute decompensation. Echo shows EF 50-55%, increased LV thickness, bi-atrial enlargement. Home medication list includes albuterol for a nebulizer TID. No PFTs available, will plan for these when he is stable as out patient. Trial of Trelegy with assistance form RT. (2) Pleural effusion: Code(s): J90 - Pleural effusion, not elsewhere classified Status: Acute Assessment and Plan: Has small effusions that appear secondary to volume overload; has pulmonary edema on CTA chest Jan 13; has no pulmonary embolus. He is not having symptoms that suggest pneumonia. Echo shows EF 50-55%, not abnormally low. He was on the vent 3 weeks in 2019, chart says he smoked 15 years, quit many years ago. He may have cardiac dysfunction contributing to his respiratory failure. His diuretics are on hold with increase in BUN and creatinine,BUN a little higher 40, creat lower 1.7. Plan AVAPS settings ordered for Jan 20, ABG Jan 21. Many of these issues are dependent on coverage, specifically which facility he will be going to at discharge. He has been in other hospitals, so his full medical record is not complete for out viewing. He had acetazolamide 500 mg IV BID x 2 doses to correct post hypercapnic metabolic alkalosis Subjective Date/time seen: 01/20/23 14:32 Interval history: hospital follow up : Jan 20: Alert, no new complaints. He i Jan 19: He is alert, not in distress; he is using BiPAP at night; he would be interested in having NPPV if it feels better. He is living in a facility right now, not sure but I think he was at home a while back. The nurse is Vin, and he was present when I visited the patient. The patient had his diuretics held today because of rising BUN/creat 38/2.1. 01/18/23- echo - EF 50-55%, biatrial enlargement, RV size and function ok. Jan 17; new consult: Hans Gaytan is a 72-year-old man with acute hypercapnic respiratory failure, Dr. Middleton asked me to see him regarding shortness of breath, abnormal ABGs, pCO2 elevated to 70s. He has a chart history indicating that he does not smoke. ? He has numerous medical co-morbidities, was on a vent for 3 weeks in 2019, was at [facility] in 2019 when he had resp failure, and he was at [facility] also 2019.? In the ER Jan 13, he was not wearing O2. His admission photo to [facility] showed him wearing an O2 cannula. He is on oral Augmentin and Zyvox for recent cellulitis, managed by hospitalist. He is being diuresed for acute and chronic CHF, no echo available to review going back to 2019.? ABG January 13, 2023 6 L oxygen; pH 7.32 pCO2 70.6, PO2 82.3, HC03 35.6; saturation 94.8% ABG January 14 36% oxygen pH 7.45, pCO2 64, PO2 83.7, bicarbonate 41.1; saturation 96.1% ABG January 14 on BiPAP 16/8, rate 18, 35% pH 7.406, pCO2 71.6, PO2 85.2, HC03 43.8; saturation 96% He wore PAP last night Jan 16; did not want to use it the entire night. He has blebs on his CT chest from Jan 13, suggestive of COPD; has small effusions and mediastinal and right hilar lymphadenopathy. When he was admitted from his NH, he had altered mentation. He uses O2 and BiPAP a the [place]. It is not clear how compliant he is with this. PMH: 2020 was treated at [facility] in [place] for cardiac arrest due to respiratory failure, chronic afib, right foot osteomyelitis, CKD, vent 3 weeks, skilled SNF for 3 weeks 4 L O2, returned within hours, COVID admitted to [facility], EF 50%; sbo and acute urinary retention treated at [facility]; upper extremity DVT, DM, anasarca. DATA * 01/18/23 - echo : Complete two-dimensional, color fl
[2023-01-20 17:34] LABS: Glucose Point of Care 179 mg/dl (65-105)
[2023-01-20] MEDS: ATORVASTATIN 20 MG TABLET PO (20:30)
[2023-01-20 20:54] LABS: Glucose Point of Care 187 mg/dl (65-105)
[2023-01-21] VITALS (12 sets, daily range): BP systolic 99–116; BP diastolic 48–76; PULSE 46–108; RESP 16–20; TEMP 36.6–36.8; O2SAT 95–99
[2023-01-21 04:57] LABS: Alveolar/Arterial O2 Gradient 64.8 mmHg; Base Excess ABG 5.8 mEq/l (+/-2.0); Fractional Inspired Oxygen 32 %; HCO3 ABG 32.5 mEq/l (22.0-26.0); Oxygen Content ABG 16.4 %vol (16.0-22.0); Oxyhemoglobin 96.3 % THb (90.0-100.0); PCO2 ABG 57.7 mmHg (35.0-45.0); PO2 ABG 95.9 mmHg (80.0-100.0); pH ABG 7.369 (7.350-7.450)
[2023-01-21] MEDS: MEROPENEM 500 MG in SODIUM CHLORIDE 0.9% IV 100 ML 200 ML IVPB ×3 (05:06→21:05)
[2023-01-21] MEDS: LEVOTHYROXINE SODIUM 50 MCG TABLET PO (05:06)
[2023-01-21 05:39] LABS: Device OTHER DEVICE; Modified Allen's Test Pass; Site Drawn LEFT RADIAL
[2023-01-21 05:48] LABS: Basophils Percent Auto 0.4 % (0.2-1.2); Eosinophils Absolute Auto 0.2 K/mm3 (0-0.3); Eosinophils Percent Auto 2.1 % (0-4.4); Hematocrit 35.6 % (42.0-52.0); Hemoglobin 10.7 g/dL (14.0-18.0); Immature Granulocyte Absolute 0.02 K/mm3 (0.00-0.031); Immature Granulocyte Percent A 0.3 % (0-0.5); Lymphocytes Absolute Auto 1.34 K/mm3 (0.9-3.2); Lymphocytes Percent Auto 17.6 % (18.3-44.2); Mean Corpuscular HGB Conc 30.1 g/dl (32-36); Mean Corpuscular Hemoglobin 29.7 pg (26-34); Mean Corpuscular Volume 98.9 fl (80-100); Mean Platelet Volume 9.7 fl (7.4-10.4); Monocytes Absolute Auto 0.6 K/mm3 (0.1-0.6); Monocytes Percent Auto 7.2 % (2.6-8.5); Neutrophils Absolute Auto 5.5 K/mm3 (1.3-6.7); Neutrophils Percent Auto 72.4 % (45.5-73.1); Platelet Count Result 175 k/mm3 (150-375); Red Cell Distribution Width 13.2 % (11.5-14.5); White Blood Count 7.6 K/mm3 (4.5-10.0)
[2023-01-21 06:13] LABS: Anion Gap 7 mmol/L (8-16); Blood Urea Nitrogen 40 mg/dL (9-20); Calcium 9.7 mg/dL (8.4-10.2); Carbon Dioxide 29 mmol/L (22-30); Chloride 99 mmol/L (98-107); Estimated CRCL calculation 44 ml/min; Estimated Glomerular Filt Rate 40; Glucose 163 mg/dL (65-110); Magnesium 2.4 mg/dL (1.6-2.3); Potassium 4.8 mmol/L (3.4-5.0); Sodium 135 mmol/L (137-145)
[2023-01-21 07:18] LABS: Free T4 Free Thyroxine 0.96 ng/mL (0.78-2.19)
[2023-01-21 07:23] LABS: NT Pro B Type Natriuretic Pept 765 pg/mL (19.9-100)
[2023-01-21 08:24] LABS: Glucose Point of Care 161 mg/dl (65-105)
--- NOTE | 2023-01-21 08:57 | PM.PNPUL ---
Progress Note: A&P Assessment and Plan (1) Obesity hypoventilation syndrome: Code(s): E66.2 - Morbid (severe) obesity with alveolar hypoventilation Status: Acute Assessment and Plan: Patient with morbid obesity, BMI 44.6. He has a 15 pack year tobacco history and quit 40 years ago. No evidence of bullous emphysema on his CT scan. I have no PFTs. I do not believe he has COPD. His TSH is normal on 01/14/2023 at 3.55 and his free T4 is normal at 0.96 on 01/21/2023. Echo shows EF 50-55%, increased LV thickness, bi-atrial enlargement. His BNP has improved from 4810 on 01/13/2023 to 765 on 01/21/2023 with 8 L diuresis since admission and he remains hypercarbic. The patient has obesity hypoventilation syndrome with chronic CO2 retention. ABG on admission 01/13/2023 was 7.32/71/82 on 6 L nasal cannula. The patient was tried on BiPAP with rate of 18 inspiratory pressure 16/8 and 35% FiO2 but he failed this with a blood gas of 7.41/71/85 on 01/17/2023. The patient would benefit from noninvasive ventilator with an AVAPS AE mode to prevent further deterioration and subsequent hospitalizations. 01/21/23: Patient tells me he is breathing normally and denies any fever, cough or phlegm production. Currently the patient is on 2.5 L nasal cannula saturations 100%. I decreased him to 2 L and his saturations were 99%. The patient's weight today is 125 kg and he is net diuresed 8 L since admission. Patient tells me he did well and slept last night with the hospital noninvasive ventilator with the AVAPS mode with a set rate of 18, tidal volume 550, EPAP 8, minimal inspiratory pressure 15, maximal inspiratory pressure 30, inspiratory time 1.0, rise of 2, 32% FiO2. Patient had a blood gas prior to removal of the this with a pH of 7.37/58/96. Plan: I will continue noninvasive ventilation with the above-mentioned AVAPS settings. I will perform an overnight oximetry tonight on 28% FiO2. Will check with his living facility to see if they can support a trelegy machine on 01/23/2023 (2) Pleural effusion: Code(s): J90 - Pleural effusion, not elsewhere classified Status: Acute Assessment and Plan: 01/20/23: Has small effusions that appear secondary to volume overload; has pulmonary edema on CTA chest Jan 13; Echo shows EF 50-55%, not abnormally low. Right ventricular size and function are normal. Moderately enlarged right atrium, RVSP 33. His diuretics are on hold with increase in BUN and creatinine, 38/2.1. 01/21/23: The patient's weight today is 125 kg which is decreased from an admission weight of 134 kg and he has net diuresed 8 L since admission. He does have pedal edema. His diuretics have been held since 01/19 due to rising creatinine of 2.1 which is improved today to 1.7. He may auto diurese now that he is on noninvasive ventilation at night. Subjective Date/time seen: 01/21/23 08:57 Interval history: Jan 17; new consult: Hans Gaytan is a 72-year-old man with acute hypercapnic respiratory failure, Dr. Middleton asked me to see him regarding shortness of breath, abnormal ABGs, pCO2 elevated to 70s. He has a chart history indicating that he does not smoke. ? He has numerous medical co-morbidities, was on a vent for 3 weeks in 2019, was at [facility] in 2019 when he had resp failure, and he was at [facility] also 2019.? In the ER Jan 13, he was not wearing O2. His admission photo to [facility] showed him wearing an O2 cannula. He is on oral Augmentin and Zyvox for recent cellulitis, managed by hospitalist. He is being diuresed for acute and chronic CHF, no echo available to review going back to 2019.? ABG January 13, 2023 6 L oxygen; pH 7.32 pCO2 70.6, PO2 82.3, HC03 35.6; saturation 94.8% ABG January 14 36% oxygen pH 7.45, pCO2 64, PO2 83.7, bicarbonate 41.1; saturation 96.1% ABG January 14 on BiPAP 16/8, rate 18, 35% pH 7.406, pCO2 71.6, PO2 85.2, HC03 43.8; saturation 96% He wore PAP last night Jan 16; did not want
[2023-01-21] MEDS: ASPIRIN 81 MG CHEWABLE TABLET PO (09:03)
[2023-01-21] MEDS: METOPROLOL SUCCINATE EXT REL 50 MG TABCR PO (09:04)
[2023-01-21] MEDS: APIXABAN 5 MG TABLET PO ×2 (09:04→20:26)
[2023-01-21] MEDS: PANTOPRAZOLE 40 MG TABLET PO (09:04)
[2023-01-21] MEDS: LORATADINE 10 MG TABLET PO (09:04)
[2023-01-21] MEDS: dilTIAZem HCL CD 180 MG CAP.24HR PO (09:04)
[2023-01-21] MEDS: MUPIROCIN 2% OINT 22 GM TUBE 1 APPLIC TOPICAL (09:05)
[2023-01-21] MEDS: TOLNAFTATE 1% POWDER 45 GM BTL 1 APPLIC TOPICAL ×2 (09:05→20:26)
--- NOTE | 2023-01-21 09:34 | PM.IMPN ---
Progress Note: A&P Assessment and Plan (1) Acute respiratory failure with hypercapnia: Code(s): J96.02 - Acute respiratory failure with hypercapnia Status: Acute Assessment and Plan: Obesity-Hypoventilation Syndrome Doing well with BiPAP with O2 2 LPM at night, NC 2 LPM during the day 01/21 PM overnight oximetry to confirm adequate oxygenation on current regimen Await word on Monday, 01/23, whether facility will accept him with BiPAP (2) Urinary retention: Code(s): R33.9 - Retention of urine, unspecified Status: Acute Assessment and Plan: Continue Mccarty catheter (3) Chronic kidney disease: Code(s): N18.9 - Chronic kidney disease, unspecified Status: Acute Assessment and Plan: 01/21 creatinine stable at 1.7 (4) Diabetes mellitus: Code(s): E11.9 - Type 2 diabetes mellitus without complications Status: Acute Assessment and Plan: FBS 163 01/21 (5) UTI (urinary tract infection): Code(s): N39.0 - Urinary tract infection, site not specified Status: Acute Assessment and Plan: E. coli and K. pneumo sens to meropenem Continue meropenem (initiated 01/19) for at least 7 days due to complicated CAUTI (6) Atrial fibrillation: Qualifiers: Atrial fibrillation type: unspecified Qualified Code(s): I48.91 - Unspecified atrial fibrillation Code(s): I48.91 - Unspecified atrial fibrillation Status: Acute Assessment and Plan: Continue Eliquis, diltiazem Subjective Date/time seen: 01/21/23 09:34 Interval history: Tolerating BiPAP. Appetite good. Denied SOB at rest. Denied pain. Denied GI/ issues. Denied bleeding. Review of Systems Review of Systems: All systems reviewed & are unremarkable except as noted in HPI and below Exam Narrative: HEENT: PERRL, sclerae nonicteric, pharyngeal mucosa pink and intact NECK: No JVD CHEST: Clear to auscultation. Normal effort. HEART: NL S1/S2, regular, no murmur ABDOMEN: BS+, soft, nontender, no mass, no bruits EXTREMITIES: No cyanosis, edema, or clubbing NEUROLOGIC: CN intact and symmetric to inspection. Speech dysarthric MUSCULOSKELETAL: Tone and strength symmetric in cable spooler. PSYCH: Alert. Oriented to person, place, and time (months and year). Objective Data Vital Signs Vital Signs: Vital Signs - 24 hr 01/20/23 09:36 01/20/23 09:37 01/20/23 10:08 Temperature Pulse Rate 76 76 Respiratory Rate Blood Pressure 108/72 Pulse Oximetry 97 Oxygen Delivery Nasal Cannula Oxygen Flow Rate 3 Fraction of Inspired Oxygen 32 01/20/23 10:08 01/20/23 10:20 01/20/23 13:40 Temperature Pulse Rate 77 77 76 Respiratory Rate 20 20 16 Blood Pressure Pulse Oximetry Oxygen Delivery Oxygen Flow Rate Fraction of Inspired Oxygen 01/20/23 13:45 01/20/23 12:00 01/20/23 16:00 Temperature Pulse Rate 77 79 78 Respiratory Rate 16 Blood Pressure Pulse Oximetry Oxygen Delivery Oxygen Flow Rate Fraction of Inspired Oxygen 01/20/23 16:00 01/20/23 20:05 01/20/23 20:05 Temperature 97.6 F Pulse Rate 84 65 Respiratory Rate 18 16 Blood Pressure 110/69 Pulse Oximetry 98 98 Oxygen Delivery Nasal Cannula Oxygen Flow Rate 3 Fraction of Inspired Oxygen 32 01/20/23 20:15 01/20/23 20:43 01/20/23 20:25 Temperature 98.1 F Pulse Rate 67 82 Respiratory Rate 16 18 Blood Pressure 108/78 Pulse Oximetry 100 100 Oxygen Delivery Nasal Cannula Oxygen Flow Rate 3 Fraction of Inspired Oxygen 01/20/23 20:04 01/21/23 00:01 01/20/23 23:00 Temperature Pulse Rate 62 79 65 Respiratory Rate 19 Blood Pressure Pulse Oximetry 98 Oxygen Delivery BiPAP Oxygen Flow Rate Fraction of Inspired Oxygen 01/21/23 01:58 01/21/23 04:00 01/21/23 04:50 Temperature Pulse Rate 69 76 68 Respiratory Rate 18 20 Blood Pressure Pulse Oximetry 98 98 Oxygen Delivery BiP
[2023-01-21 12:23] LABS: Glucose Point of Care 208 mg/dl (65-105)
[2023-01-21] MEDS: INSULIN ASPART (*BKC) 100 UNITS/ML SUB-Q (12:53)
[2023-01-21] MEDS: FLUTICASONE/UMECLIDIN/VILANTER 100-62.5-25 MCG ELLIPTA 1 PUFF INHALATION (13:08)
--- NOTE | 2023-01-21 14:22 | P.PNNP_ITS ---
Progress Note: A&P Assessment and Plan (1) PIPE (acute kidney injury): Code(s): N17.9 - Acute kidney failure, unspecified Status: Acute Assessment and Plan: * Acute kidney injury * evaluation to date: * renal ultrasound unremarkable * urine electrolytes non-prerenal * rare urine eosinophils - suspect secondary to inflammation in urethra (see wound culture results) * CPK low * Most likely reason for PIPE is diuretics plus contrast exposure. * Creatinine is slowly better. Down to 1.7 today. (2) Acute respiratory failure with hypercapnia: Code(s): J96.02 - Acute respiratory failure with hypercapnia Status: Acute Assessment and Plan: * Pulmonary following * COVID, RSV, influenza testing negative * CT of chest with moderate pulmonary edema small pleural effusions but no PE * Diuretics on hold because of the acute kidney injury. * On 3L of oxygen per nasal cannula and O2 sat is 95% (3) Chronic indwelling Mccarty catheter: Code(s): Z97.8 - Presence of other specified devices Status: Chronic Assessment and Plan: * presuably due to chronic urinary retention * UA negative for infection * however, urethral drainage noted on admission * uretheral drainage swab with E coli and Klebsiella * on antibiotics (4) Atrial fibrillation: Qualifiers: Atrial fibrillation type: unspecified Qualified Code(s): I48.91 - Unspecified atrial fibrillation Code(s): I48.91 - Unspecified atrial fibrillation Status: Chronic Assessment and Plan: * Pulses good in the 60s. * on Eliquis (5) Diabetes mellitus: Code(s): E11.9 - Type 2 diabetes mellitus without complications Status: Chronic Assessment and Plan: * follow accu-cheks * glycemic control per hospitalists Subjective Date/time seen: 01/21/23 14:22 Interval history: Edgamaliel is comfortable. About to eat some lunch. Exam Narrative: General: elderly but WD/WN male in NAD Heart: Irregularly irregular rhythm. No rub or gallop Lungs: clear anteriorly, decreased at bases Abdomen: soft, nontender, nondistended, positive bowel sounds Extremities: no edema Skin: No rash Objective Data Vital Signs Vital Signs: Vital Signs - 24 hr 01/20/23 16:00 01/20/23 16:00 01/20/23 20:05 Temperature 97.6 F Pulse Rate 78 84 Respiratory Rate 18 Blood Pressure 110/69 Pulse Oximetry 98 98 Oxygen Delivery Nasal Cannula Oxygen Flow Rate 3 Fraction of Inspired Oxygen 32 01/20/23 20:05 01/20/23 20:15 01/20/23 20:43 Temperature 98.1 F Pulse Rate 65 67 82 Respiratory Rate 16 16 18 Blood Pressure 108/78 Pulse Oximetry 100 Oxygen Delivery Oxygen Flow Rate Fraction of Inspired Oxygen 01/20/23 20:25 01/20/23 20:04 01/21/23 00:01 Temperature Pulse Rate 62 79 Respiratory Rate Blood Pressure Pulse Oximetry 100 Oxygen Delivery Nasal Cannula Oxygen Flow Rate 3 Fraction of Inspired Oxygen 01/20/23 23:00 01/21/23 01:58 01/21/23 04:00 Temperature Pulse Rate 65 69 76 Respiratory Rate 19 18
--- NOTE | 2023-01-21 14:22 | PM.PNNEP ---
Progress Note: A&P Assessment and Plan (1) PIPE (acute kidney injury): Code(s): N17.9 - Acute kidney failure, unspecified Status: Acute Assessment and Plan: Acute kidney injury evaluation to date: renal ultrasound unremarkable urine electrolytes non-prerenal rare urine eosinophils - suspect secondary to inflammation in urethra (see wound culture results) CPK low Most likely reason for PIPE is diuretics plus contrast exposure. Creatinine is slowly better. Down to 1.7 today. (2) Acute respiratory failure with hypercapnia: Code(s): J96.02 - Acute respiratory failure with hypercapnia Status: Acute Assessment and Plan: Pulmonary following COVID, RSV, influenza testing negative CT of chest with moderate pulmonary edema small pleural effusions but no PE Diuretics on hold because of the acute kidney injury. On 3L of oxygen per nasal cannula and O2 sat is 95% (3) Chronic indwelling Mccarty catheter: Code(s): Z97.8 - Presence of other specified devices Status: Chronic Assessment and Plan: presuably due to chronic urinary retention UA negative for infection however, urethral drainage noted on admission uretheral drainage swab with E coli and Klebsiella on antibiotics (4) Atrial fibrillation: Qualifiers: Atrial fibrillation type: unspecified Qualified Code(s): I48.91 - Unspecified atrial fibrillation Code(s): I48.91 - Unspecified atrial fibrillation Status: Chronic Assessment and Plan: Pulses good in the 60s. on Eliquis (5) Diabetes mellitus: Code(s): E11.9 - Type 2 diabetes mellitus without complications Status: Chronic Assessment and Plan: follow accu-cheks glycemic control per hospitalists Subjective Date/time seen: 01/21/23 14:22 Interval history: Hans is comfortable. About to eat some lunch. Exam Narrative: General: elderly but WD/WN male in NAD Heart: Irregularly irregular rhythm. No rub or gallop Lungs: clear anteriorly, decreased at bases Abdomen: soft, nontender, nondistended, positive bowel sounds Extremities: no edema Skin: No rash Objective Data Vital Signs Vital Signs: Vital Signs - 24 hr 01/20/23 16:00 01/20/23 16:00 01/20/23 20:05 Temperature 97.6 F Pulse Rate 78 84 Respiratory Rate 18 Blood Pressure 110/69 Pulse Oximetry 98 98 Oxygen Delivery Nasal Cannula Oxygen Flow Rate 3 Fraction of Inspired Oxygen 32 01/20/23 20:05 01/20/23 20:15 01/20/23 20:43 Temperature 98.1 F Pulse Rate 65 67 82 Respiratory Rate 16 16 18 Blood Pressure 108/78 Pulse Oximetry 100 Oxygen Delivery Oxygen Flow Rate Fraction of Inspired Oxygen 01/20/23 20:25 01/20/23 20:04 01/21/23 00:01 Temperature Pulse Rate 62 79 Respiratory Rate Blood Pressure Pulse Oximetry 100 Oxygen Delivery Nasal Cannula Oxygen Flow Rate 3 Fraction of Inspired Oxygen 01/20/23 23:00 01/21/23 01:58 01/21/23 04:00 Temperature Pulse Rate 65 69 76 Respiratory Rate 19 18 Blood Pressure Pulse Oximetry 98 98 Oxygen Delivery BiPAP BiPAP Oxygen Flow Rate Fraction of Inspired Oxygen 01/21/23 04:50 01/21/23 09:04 01/21/23 08:00 Temperature 98 F Pulse Rate 68 68 66 Respiratory Rate 20 18 Blood Pressure 110/76 Pulse Oximetry 98 98 Oxygen Delivery BiPAP Oxygen Flow Rate Fraction of Inspired Oxygen 01/21/23 08:00 01/21/23 08:00 01/21/23 09:07 Temperature Pulse Rate 66 66 Respiratory Rate 16 Blood Pressure Pulse Oximetry 98 95 Oxygen Delivery BiPAP Nasal Cannula Oxygen Flow Rate 3 Fraction of Inspired Oxygen Intake/Output Intake/Output: Intake & Output 01/18/23 01/19/23 01/20/23 01/21/23 23:59 23:59 23:59 23:59 Intake Total 2040 1080 1910 580 Output Total 3200 2150 1750 3200 Balance -1160 -1070 160 -2620 Meds/Results Medications: A
[2023-01-21 17:23] LABS: Glucose Point of Care 199 mg/dl (65-105)
--- NOTE | 2023-01-21 18:43 | PM.EVENT ---
Event Note Event Note Event Note: Cross Coverage Patient's telemetry showing heart rate 41-50 for greater than 1 hour. Occasional resolution of bradycardia, brief. Order parameters for metoprolol ER adjusted, hold if heart rate less than 65 and notify provider if heart rate less than 50. EKG ordered. Patient is complaining of some dizziness and lightheadedness. Only new medication in the last 48 hours is meropenem. BP WNL.
[2023-01-21] MEDS: ATORVASTATIN 20 MG TABLET PO (20:26)
[2023-01-21 20:40] LABS: Glucose Point of Care 237 mg/dl (65-105)
[2023-01-22] VITALS (14 sets, daily range): BP systolic 117–137; BP diastolic 63–79; PULSE 52–84; RESP 17–20; TEMP 36.4–36.6; O2SAT 94–97
[2023-01-22] MEDS: LEVOTHYROXINE SODIUM 50 MCG TABLET PO (06:08)
[2023-01-22] MEDS: MEROPENEM 500 MG in SODIUM CHLORIDE 0.9% IV 100 ML 200 ML IVPB ×3 (06:08→21:57)
--- NOTE | 2023-01-22 07:46 | ECG_ITS ---
Measurements Intervals [place] Rate: 61 P: IN: 0 QRS: -47 QRSD: 137 T: -8 QT: 405 QTc: 410 Interpretive Statements ATRIAL FIBRILLATION LEFT AXIS DEVIATION INTRAVENTRICULAR CONDUCTION DELAY POSSIBLE ANTERIOR MYOCARDIAL INFARCTION , OF INDETERMINATE AGE Electronically Signed On 01-22-2023 10:33:39 [employer] by Sage Wallis M.D.
[2023-01-22 08:14] LABS: Albumin Level 3.5 g/dL (3.5-5.1); Anion Gap 5 mmol/L (8-16); Blood Urea Nitrogen 42 mg/dL (9-20); Calcium 9.6 mg/dL (8.4-10.2); Carbon Dioxide 24 mmol/L (22-30); Chloride 103 mmol/L (98-107); Estimated CRCL calculation 53 ml/min; Estimated Glomerular Filt Rate 50; Glucose 155 mg/dL (65-110); Phosphorus 2.9 mg/dL (2.5-4.5); Potassium 4.2 mmol/L (3.4-5.0); Sodium 132 mmol/L (137-145)
--- NOTE | 2023-01-22 08:34 | PM.PNPUL ---
Progress Note: A&P Assessment and Plan (1) Obesity hypoventilation syndrome: Code(s): E66.2 - Morbid (severe) obesity with alveolar hypoventilation Status: Acute Assessment and Plan: Patient with morbid obesity, BMI 44.6. He has a 15 pack year tobacco history and quit 40 years ago. No evidence of bullous emphysema on his CT scan. I have no PFTs. I do not believe he has COPD. His TSH is normal on 01/14/2023 at 3.55 and his free T4 is normal at 0.96 on 01/21/2023. Echo shows EF 50-55%, increased LV thickness, bi-atrial enlargement. His BNP has improved from 4810 on 01/13/2023 to 765 on 01/21/2023 with 8 L diuresis since admission and he remains hypercarbic. The patient has obesity hypoventilation syndrome with chronic CO2 retention. ABG on admission 01/13/2023 was 7.32/71/82 on 6 L nasal cannula. The patient was tried on BiPAP with rate of 18 inspiratory pressure 16/8 and 35% FiO2 but he failed this with a blood gas of 7.41/71/85 on 01/17/2023. The patient would benefit from noninvasive ventilator with an AVAPS AE mode to prevent further deterioration and subsequent hospitalizations. 01/21/23: Patient tells me he is breathing normally and denies any fever, cough or phlegm production. Currently the patient is on 2.5 L nasal cannula saturations 100%. I decreased him to 2 L and his saturations were 99%. The patient's weight today is 125 kg and he is net diuresed 8 L since admission. Patient tells me he did well and slept last night with the hospital noninvasive ventilator with the AVAPS mode with a set rate of 18, tidal volume 550, EPAP 8, minimal inspiratory pressure 15, maximal inspiratory pressure 30, inspiratory time 1.0, rise of 2, 32% FiO2. Patient had a blood gas prior to removal of the this with a pH of 7.37/58/96. Plan: I will continue noninvasive ventilation with the above-mentioned AVAPS settings. I will perform an overnight oximetry tonight on 28% FiO2. Will check with his living facility to see if they can support a trelegy machine on 01/23/2023. 01/22/23: Patient wore the hospital AVAPS with the settings above and said he slept well and this helps him sleep. Overnight oximetry on AVAPS with the above settings on 28% FiO2 with recording duration 6 hours and 29 minutes. Average saturation 98%. Low saturation 77%. Time with saturation less than or equal to 88% was 0 minutes. Oxygen desaturation index was 1.1. Patient is in a on Bumex 1 mg p.o. b.i.d. and his weight is 125 kg (admit 139.2 kg) and he has diuresed 8.3 kg from admission. Plan: The above AVAPS settings with 28% FiO2 provide adequate ventilation and oxygenation. Continue trelegy therapeutic trial. He says the inhaler is helping him. From a pulmonary perspective patient is ready to be discharged on these pulmonary medications Trelegy 100-62.5-25 at 1 puff q.day Albuterol rescue inhaler 2 puffs q.4 hours p.r.n. shortness of breath or wheezing When he naps or sleeps noninvasive ventilator with the AVAPS AE mode with a respiratory rate of 18, tidal volume 550, minimal EPAP 5, maximal EPAP 15, minimal suppression or support 6, maximal pressure support 30, inspiratory time 1.0 and 2 L bleed in. Oxygen at rest and with activity per living facilities protocol. Currently at rest on room air his saturations are 93%. Diuretics per hospitalist team. Currently he is on Bumex 1 mg p.o. b.i.d. Will follow with you. (2) Pleural effusion: Code(s): J90 - Pleural effusion, not elsewhere classified Status: Acute Assessment and Plan: 01/20/23: Has small effusions that appear secondary to volume overload; has pulmonary edema on CTA chest Dec 1; Echo shows EF 50-55%, not abnormally low. Right ventricular size and function are normal. Moderately enlarged right atrium, RVSP 33. His diuretics are on hold with increase in BUN and creatinine, 38/2.1. 01/21/23: The patient's weight today is 125 kg which is decreased from an admission weight of 134 kg and he h
[2023-01-22 08:48] LABS: Glucose Point of Care 149 mg/dl (65-105)
[2023-01-22] MEDS: METOPROLOL SUCCINATE EXT REL 50 MG TABCR PO (10:05)
[2023-01-22] MEDS: APIXABAN 5 MG TABLET PO ×2 (10:05→20:25)
[2023-01-22] MEDS: ASPIRIN 81 MG CHEWABLE TABLET PO (10:05)
[2023-01-22] MEDS: PANTOPRAZOLE 40 MG TABLET PO (10:05)
[2023-01-22] MEDS: LORATADINE 10 MG TABLET PO (10:05)
[2023-01-22] MEDS: TOLNAFTATE 1% POWDER 45 GM BTL 1 APPLIC TOPICAL ×2 (10:06→20:26)
[2023-01-22] MEDS: MUPIROCIN 2% OINT 22 GM TUBE 1 APPLIC TOPICAL (10:06)
[2023-01-22] MEDS: FLUTICASONE/UMECLIDIN/VILANTER 100-62.5-25 MCG ELLIPTA 1 PUFF INHALATION (11:01)
--- NOTE | 2023-01-22 12:02 | PM.IMPN ---
Progress Note: A&P Assessment and Plan (1) Acute respiratory failure with hypercapnia: Code(s): J96.02 - Acute respiratory failure with hypercapnia Status: Acute Assessment and Plan: Obesity-Hypoventilation Syndrome Doing well with BiPAP with O2 2 LPM at night, on RA in the day Await word on Monday, 01/23, whether facility will accept him with BiPAP (2) Urinary retention: Code(s): R33.9 - Retention of urine, unspecified Status: Acute Assessment and Plan: Continue Mccarty catheter (3) Chronic kidney disease: Code(s): N18.9 - Chronic kidney disease, unspecified Status: Acute Assessment and Plan: creat is 1.4 today (4) Diabetes mellitus: Code(s): E11.9 - Type 2 diabetes mellitus without complications Status: Chronic Assessment and Plan: chronic and stable sugars continue accuchecks and SSI (5) UTI (urinary tract infection): Code(s): N39.0 - Urinary tract infection, site not specified Status: Acute Assessment and Plan: E. coli and K. pneumo sens to meropenem Continue meropenem (initiated 01/19) for at least 5- 7 days due to complicated CAUTI (6) Atrial fibrillation: Qualifiers: Atrial fibrillation type: unspecified Qualified Code(s): I48.91 - Unspecified atrial fibrillation Code(s): I48.91 - Unspecified atrial fibrillation Status: Chronic Assessment and Plan: Continue Eliquis, diltiazem Subjective Date/time seen: 01/22/23 12:02 Interval history: pt admitted for acute respiratory failure, chf excerbation and pleural effusion Tolerating BiPAP at night on room air in the day HR was low yesterday plan to hold diltiazem today and give metoprolol From pulmonology plan is to dc back to facility soon, after checking what machine they have there and completing IV abx Review of Systems Review of Systems: More awake answering questions appropriately Exam Narrative: HEENT: PERRL, sclerae nonicteric, pharyngeal mucosa pink and intact NECK: No JVD CHEST: Clear to auscultation. Normal effort. HEART: NL S1/S2, regular, no murmur ABDOMEN: BS+, soft, nontender, no mass, no bruits EXTREMITIES: No cyanosis, edema, or clubbing NEUROLOGIC: CN intact and symmetric to inspection. Speech dysarthric MUSCULOSKELETAL: Tone and strength symmetric in audio experience expert. PSYCH: Alert. Oriented to person, place, and time Objective Data Vital Signs Vital Signs: Vital Signs - 24 hr 01/21/23 16:00 01/21/23 16:00 01/21/23 19:39 Temperature 36.7 C 36.8 C Pulse Rate 67 81 108 H Respiratory Rate 18 18 Blood Pressure 116/72 99/48 L Pulse Oximetry 99 97 Oxygen Delivery Oxygen Flow Rate 01/21/23 20:00 01/22/23 00:00 01/21/23 22:30 Temperature Pulse Rate 46 L 52 L 59 L Respiratory Rate 19 Blood Pressure Pulse Oximetry 97 Oxygen Delivery BiPAP Oxygen Flow Rate 01/22/23 02:22 01/22/23 02:20 01/22/23 04:00 Temperature Pulse Rate 62 56 L Respiratory Rate 18 Blood Pressure Pulse Oximetry 97 97 Oxygen Delivery Nasal Cannula BiPAP Oxygen Flow Rate 3 01/22/23 06:00 01/22/23 10:00 01/22/23 10:05 Temperature Pulse Rate 56 L 79 79 Respiratory Rate 20 Blood Pressure 117/63 Pulse Oximetry 97 96 Oxygen Delivery BiPAP Oxygen Flow Rate 01/22/23 11:02 01/22/23 08:40 01/22/23 08:40 Temperature Pulse Rate 71 Respiratory Rate Blood Pressure Pulse Oximetry 94 96 Oxygen Delivery Room Air Room Air Oxygen Flow Rate Intake/Output Intake/Output: Intake & Output 01/19/23 01/20/23 01/21/23 01/22/23 23:59 23:59 23:59 23:59 Intake Total 1080 1910 1800 620 Output Total 2150 1750 4050 1300 Balance -1070 160 -7300 -668 Meds/Results Medications: Active Medications Generic Name Dose Route Start Last Admin Trade Name Freq PRN Reason Stop Dose Admin Acetaminophen 650 mg 01/13/23 21:18 Acetaminophen 325 Mg
[2023-01-22 12:22] LABS: Glucose Point of Care 169 mg/dl (65-105)
--- NOTE | 2023-01-22 13:10 | P.PNNP_ITS ---
Progress Note: A&P Assessment and Plan (1) PIPE (acute kidney injury): Code(s): N17.9 - Acute kidney failure, unspecified Status: Acute Assessment and Plan: * Acute kidney injury * evaluation to date: * renal ultrasound unremarkable * urine electrolytes non-prerenal * rare urine eosinophils - suspect secondary to inflammation in urethra (see wound culture results) * CPK low * Most likely reason for PIPE is diuretics plus contrast exposure. * Creatinine is slowly better. Down to 1.4 from 1.7 today. (2) Acute respiratory failure with hypercapnia: Code(s): J96.02 - Acute respiratory failure with hypercapnia Status: Acute Assessment and Plan: * Pulmonary following * COVID, RSV, influenza testing negative * CT of chest with moderate pulmonary edema small pleural effusions but no PE * Diuretics on hold because of the acute kidney injury. * On room air and O2 sat is 95% (3) Chronic indwelling Mccarty catheter: Code(s): Z97.8 - Presence of other specified devices Status: Chronic Assessment and Plan: * presuably due to chronic urinary retention * UA negative for infection * however, urethral drainage noted on admission * uretheral drainage swab with E coli and Klebsiella * finished antibiotics. (4) Atrial fibrillation: Qualifiers: Atrial fibrillation type: unspecified Qualified Code(s): I48.91 - Unspecified atrial fibrillation Code(s): I48.91 - Unspecified atrial fibrillation Status: Chronic Assessment and Plan: * Pulses good in the 60s. * on Eliquis (5) Diabetes mellitus: Code(s): E11.9 - Type 2 diabetes mellitus without complications Status: Chronic Assessment and Plan: * follow accu-cheks * glycemic control per hospitalists Subjective Date/time seen: 01/22/23 13:10 Interval history: pt is alert. resting comfortably in bed. appetite is okay Exam Narrative: General: elderly but WD/WN male in NAD Heart: Irregularly irregular rhythm. No rub or gallop Lungs: clear anteriorly, decreased at bases Abdomen: soft, nontender, nondistended, positive bowel sounds Extremities: no edema Skin: No rash Objective Data Vital Signs Vital Signs: Vital Signs - 24 hr 01/21/23 16:00 01/21/23 16:00 01/21/23 19:39 Temperature 98.1 F 98.2 F Pulse Rate 67 81 108 H Respiratory Rate 18 18 Blood Pressure 116/72 99/48 L Pulse Oximetry 99 97 Oxygen Delivery Oxygen Flow Rate 01/21/23 20:00 01/22/23 00:00 01/21/23 22:30 Temperature Pulse Rate 46 L 52 L 59 L Respiratory Rate 19 Blood Pressure Pulse Oximetry 97 Oxygen Delivery BiPAP Oxygen Flow Rate 01/22/23 02:22 01/22/23 02:20 01/22/23 04:00 Temperature Pulse Rate 62 56 L Respiratory Rate 18 Blood Pressure Pulse Oximetry 97 97 Oxygen Delivery Nasal Cannula BiPAP Oxygen Flow Rate 3 01/22/23 06:00 01/22/23 10:00 01/22/23 10:05 Temperature Pulse Rate 56 L 79 79 Respiratory Rate 20 Blood Pressure 117/63 Pulse Oximetry 97 96 Oxygen Delivery BiPAP
--- NOTE | 2023-01-22 13:10 | PM.PNNEP ---
Progress Note: A&P Assessment and Plan (1) PIPE (acute kidney injury): Code(s): N17.9 - Acute kidney failure, unspecified Status: Acute Assessment and Plan: Acute kidney injury evaluation to date: renal ultrasound unremarkable urine electrolytes non-prerenal rare urine eosinophils - suspect secondary to inflammation in urethra (see wound culture results) CPK low Most likely reason for PIPE is diuretics plus contrast exposure. Creatinine is slowly better. Down to 1.4 from 1.7 today. (2) Acute respiratory failure with hypercapnia: Code(s): J96.02 - Acute respiratory failure with hypercapnia Status: Acute Assessment and Plan: Pulmonary following COVID, RSV, influenza testing negative CT of chest with moderate pulmonary edema small pleural effusions but no PE Diuretics on hold because of the acute kidney injury. On room air and O2 sat is 95% (3) Chronic indwelling Mccarty catheter: Code(s): Z97.8 - Presence of other specified devices Status: Chronic Assessment and Plan: presuably due to chronic urinary retention UA negative for infection however, urethral drainage noted on admission uretheral drainage swab with E coli and Klebsiella finished antibiotics. (4) Atrial fibrillation: Qualifiers: Atrial fibrillation type: unspecified Qualified Code(s): I48.91 - Unspecified atrial fibrillation Code(s): I48.91 - Unspecified atrial fibrillation Status: Chronic Assessment and Plan: Pulses good in the 60s. on Eliquis (5) Diabetes mellitus: Code(s): E11.9 - Type 2 diabetes mellitus without complications Status: Chronic Assessment and Plan: follow accu-cheks glycemic control per hospitalists Subjective Date/time seen: 01/22/23 13:10 Interval history: pt is alert. resting comfortably in bed. appetite is okay Exam Narrative: General: elderly but WD/WN male in NAD Heart: Irregularly irregular rhythm. No rub or gallop Lungs: clear anteriorly, decreased at bases Abdomen: soft, nontender, nondistended, positive bowel sounds Extremities: no edema Skin: No rash Objective Data Vital Signs Vital Signs: Vital Signs - 24 hr 01/21/23 16:00 01/21/23 16:00 01/21/23 19:39 Temperature 98.1 F 98.2 F Pulse Rate 67 81 108 H Respiratory Rate 18 18 Blood Pressure 116/72 99/48 L Pulse Oximetry 99 97 Oxygen Delivery Oxygen Flow Rate 01/21/23 20:00 01/22/23 00:00 01/21/23 22:30 Temperature Pulse Rate 46 L 52 L 59 L Respiratory Rate 19 Blood Pressure Pulse Oximetry 97 Oxygen Delivery BiPAP Oxygen Flow Rate 01/22/23 02:22 01/22/23 02:20 01/22/23 04:00 Temperature Pulse Rate 62 56 L Respiratory Rate 18 Blood Pressure Pulse Oximetry 97 97 Oxygen Delivery Nasal Cannula BiPAP Oxygen Flow Rate 3 01/22/23 06:00 01/22/23 10:00 01/22/23 10:05 Temperature Pulse Rate 56 L 79 79 Respiratory Rate 20 Blood Pressure 117/63 Pulse Oximetry 97 96 Oxygen Delivery BiPAP Oxygen Flow Rate 01/22/23 11:02 01/22/23 08:40 01/22/23 08:40 Temperature Pulse Rate 71 Respiratory Rate Blood Pressure Pulse Oximetry 94 96 Oxygen Delivery Room Air Room Air Oxygen Flow Rate 01/22/23 12:00 Temperature Pulse Rate 78 Respiratory Rate Blood Pressure Pulse Oximetry Oxygen Delivery Oxygen Flow Rate Intake/Output Intake/Output: Intake & Output 01/19/23 01/20/23 01/21/23 01/22/23 23:59 23:59 23:59 23:59 Intake Total 1080 1910 1800 620 Output Total 2150 1750 4050 1300 Balance 1070 160 -0780 -027 Meds/Results Medications: Active Medications Generic Name Dose Route Start Last Admin Trade Name Freq PRN Reason Stop Dose Admin Acetaminophen 650 mg 01/13/23 21:18 Acetaminophen 325 Mg Tablet PO Q4H PRN Mild Pain (1-3) or Fever Apixaban 5 mg 01/13/23 22:
[2023-01-22 17:10] LABS: Glucose Point of Care 146 mg/dl (65-105)
[2023-01-22] MEDS: ATORVASTATIN 20 MG TABLET PO (20:25)
--- NOTE | 2023-01-22 22:35 | PC.NURSE ---
received report on patient at 2100 from [place]. upon assessment patient awake in the bed, VSS, denies pain. call light in hand, bed in lower position with side rail up. white board updated. Care continued
[2023-01-23] VITALS (11 sets, daily range): BP systolic 117–125; BP diastolic 78–83; PULSE 61–86; RESP 16–20; TEMP 35.9–36.1; O2SAT 96–100
[2023-01-23 05:05] LABS: Glucose Point of Care 209 mg/dl (65-105)
[2023-01-23 05:37] LABS: Albumin Level 3.5 g/dL (3.5-5.1); Anion Gap 4 mmol/L (8-16); Blood Urea Nitrogen 39 mg/dL (9-20); Calcium 9.7 mg/dL (8.4-10.2); Carbon Dioxide 28 mmol/L (22-30); Chloride 101 mmol/L (98-107); Estimated CRCL calculation 57 ml/min; Estimated Glomerular Filt Rate 54; Glucose 140 mg/dL (65-110); Phosphorus 3.1 mg/dL (2.5-4.5); Potassium 4.4 mmol/L (3.4-5.0); Sodium 133 mmol/L (137-145)
[2023-01-23] MEDS: LEVOTHYROXINE SODIUM 50 MCG TABLET PO (06:44)
[2023-01-23] MEDS: MEROPENEM 500 MG in SODIUM CHLORIDE 0.9% IV 100 ML 200 ML IVPB ×3 (06:51→21:57)
[2023-01-23] MEDS: FLUTICASONE/UMECLIDIN/VILANTER 100-62.5-25 MCG ELLIPTA 1 PUFF INHALATION (09:08)
[2023-01-23] MEDS: MUPIROCIN 2% OINT 22 GM TUBE 1 APPLIC TOPICAL (09:08)
[2023-01-23] MEDS: TOLNAFTATE 1% POWDER 45 GM BTL 1 APPLIC TOPICAL ×2 (09:08→20:48)
--- NOTE | 2023-01-23 09:08 | PM.PNPUL ---
Progress Note: A&P Assessment and Plan (1) Obesity hypoventilation syndrome: Code(s): E66.2 - Morbid (severe) obesity with alveolar hypoventilation Status: Acute Assessment and Plan: Patient with morbid obesity, BMI 44.6. He has a 15 pack year tobacco history and quit 40 years ago. No evidence of bullous emphysema on his CT scan. I have no PFTs. I do not believe he has COPD. His TSH is normal on 01/14/2023 at 3.55 and his free T4 is normal at 0.96 on 01/21/2023. Echo shows EF 50-55%, increased LV thickness, bi-atrial enlargement. His BNP has improved from 4810 on 01/13/2023 to 765 on 01/21/2023 with 8 L diuresis since admission and he remains hypercarbic. The patient has obesity hypoventilation syndrome with chronic CO2 retention. ABG on admission 01/13/2023 was 7.32/71/82 on 6 L nasal cannula. The patient was tried on BiPAP with rate of 18 inspiratory pressure 16/8 and 35% FiO2 but he failed this with a blood gas of 7.41/71/85 on 01/17/2023. The patient would benefit from noninvasive ventilator with an AVAPS AE mode to prevent further deterioration and subsequent hospitalizations. 01/21/23: Patient tells me he is breathing normally and denies any fever, cough or phlegm production. Currently the patient is on 2.5 L nasal cannula saturations 100%. I decreased him to 2 L and his saturations were 99%. The patient's weight today is 125 kg and he is net diuresed 8 L since admission. Patient tells me he did well and slept last night with the hospital noninvasive ventilator with the AVAPS mode with a set rate of 18, tidal volume 550, EPAP 8, minimal inspiratory pressure 15, maximal inspiratory pressure 30, inspiratory time 1.0, rise of 2, 32% FiO2. Patient had a blood gas prior to removal of the this with a pH of 7.37/58/96. Plan: I will continue noninvasive ventilation with the above-mentioned AVAPS settings. I will perform an overnight oximetry tonight on 28% FiO2. Will check with his living facility to see if they can support a trelegy machine on 01/23/2023. 01/22/23: Patient wore the hospital AVAPS with the settings above and said he slept well and this helps him sleep. Overnight oximetry on AVAPS with the above settings on 28% FiO2 with recording duration 6 hours and 29 minutes. Average saturation 98%. Low saturation 77%. Time with saturation less than or equal to 88% was 0 minutes. Oxygen desaturation index was 1.1. Patient is in a on Bumex 1 mg p.o. b.i.d. and his weight is 125 kg (admit 139.2 kg) and he has diuresed 8.3 kg from admission. Plan: The above AVAPS settings with 28% FiO2 provide adequate ventilation and oxygenation. Continue trelegy therapeutic trial. He says the inhaler is helping him. 01/23: Patient states he is breathing at his baseline. He is working with physical therapy. Yesterday he was on room air most of the day. Currently is on 1.5 L nasal cannula saturations 99%. The patient tells me he did not wear the noninvasive ventilator last night although respiratory therapy as charted that he wore the AVAPS. His creatinine is 1.3, cumulative diuresis since admission is 7.5 L. I spoke with our patient experience coordinator who will confirm that his living facility will rent a trilogy machine. Ultimately, if he is discharged will get a home trilogy with [facility]. From a pulmonary perspective patient is ready to be discharged on these pulmonary medications Trelegy 100-62.5-25 at 1 puff q.day Albuterol rescue inhaler 2 puffs q.4 hours p.r.n. shortness of breath or wheezing When he naps or sleeps noninvasive ventilator with the AVAPS AE mode with a respiratory rate of 18, tidal volume 550, minimal EPAP 5, maximal EPAP 15, minimal suppression or support 6, maximal pressure support 30, inspiratory time 1.0 and 2 L bleed in. Oxygen at rest and with activity per living facilities protocol. Currently at rest on room air his saturations are 93%. Diuretics per hospitalist team. Currently he is on Bumex 1 mg p.o. b.i.d.
[2023-01-23] MEDS: APIXABAN 5 MG TABLET PO ×2 (09:09→20:48)
[2023-01-23] MEDS: ASPIRIN 81 MG CHEWABLE TABLET PO (09:10)
[2023-01-23] MEDS: LORATADINE 10 MG TABLET PO (09:10)
[2023-01-23] MEDS: PANTOPRAZOLE 40 MG TABLET PO (09:10)
[2023-01-23] MEDS: dilTIAZem HCL CD 180 MG CAP.24HR PO (09:14)
[2023-01-23] MEDS: METOPROLOL SUCCINATE EXT REL 50 MG TABCR PO (09:14)
[2023-01-23 09:24] LABS: Glucose Point of Care 173 mg/dl (65-105)
[2023-01-23 11:39] LABS: Glucose Point of Care 154 mg/dl (65-105)
--- NOTE | 2023-01-23 11:50 | P.PNNP_ITS ---
Progress Note: A&P Assessment and Plan (1) ROMMEL (acute kidney injury): Code(s): N17.9 - Acute kidney failure, unspecified Status: Acute Assessment and Plan: * slow improvement noted * evaluation to date: * renal ultrasound unremarkable * urine electrolytes non-prerenal * rare urine eosinophils - suspect secondary to inflammation in urethra (see wound culture results) * CPK low * etiology of Rommel likely due to diuretics plus contrast exposure * follow trend of repeat labs and UOP (2) Acute respiratory failure with hypercapnia: Code(s): J96.02 - Acute respiratory failure with hypercapnia Status: Acute Assessment and Plan: * Pulmonary following * COVID, RSV, influenza testing negative * CT of chest with moderate pulmonary edema small pleural effusions but no PE * diuretics on hold because of the acute kidney injury * follow respiratory status (3) Chronic indwelling Mccarty catheter: Code(s): Z97.8 - Presence of other specified devices Status: Chronic Assessment and Plan: * presumably due to chronic urinary retention * UA negative for infection * however, urethral drainage noted on admission * uretheral drainage swab with E coli and Klebsiella * finished antibiotics (4) Atrial fibrillation: Qualifiers: Atrial fibrillation type: unspecified Qualified Code(s): I48.91 - Unsp ecified atrial fibrillation Code(s): I48.91 - Unspecified atrial fibrillation Status: Chronic Assessment and Plan: * rate control strategy * on Eliquis (5) Diabetes mellitus: Code(s): E11.9 - Type 2 diabetes mellitus without complications Status: Chronic Assessment and Plan: * follow accu-cheks * glycemic control per hospitalists Not much else to add -- will continue to follow intermittently. Subjective Date/time seen: 01/23/23 11:50 Interval history: Follow-up for acute kidney injury/acute renal failure Appears to be doing well since I last saw him; kidney function continues to improve as noted by trend of labs; respiratory status seems relatively stable as well. Exam Narrative: General: elderly but WD/WN male in NAD Heart: Irregularly irregular rhythm; no rub Lungs: clear anteriorly, decreased at bases Abdomen: soft, nontender, nondistended, positive bowel sounds Extremities: no edema Skin: no nodules Objective Data Vital Signs Vital Signs: Vital Signs Temp Pulse Resp BP Pulse Ox O2 Del Method O2 Flow Rate 01/23/23 11:45 75 01/23/23 10:30 96.6 F L 86 16 125/83 100 01/23/23 09:12 96 Nasal Cannula 1.5 01/23/23 09:08 80 20 01/23/23 09:14 70 01/23/23 04:00 73 01/22/23 23:05 73 20 97 BiPAP 01/22/23 20:00 Room Air 01/22/23 20:00 75 01/22/23 20:19 97.6 F 75 18 137/79 95 Intake/Output Intake/Output: Intake & Output 01/20/23 01/21/23 01/22/23 01/23/23 23:59 23:59 23:59 23:59 Intake Total 1910 1800 2200 790 Output Total 1750 4050 2700 Balance 160 -2250 -500 790 Meds/Results Medications: Active Medications Generic Name Dose Route Start Last Adm
--- NOTE | 2023-01-23 11:50 | PM.PNNEP ---
Progress Note: A&P Assessment and Plan (1) ROMMEL (acute kidney injury): Code(s): N17.9 - Acute kidney failure, unspecified Status: Acute Assessment and Plan: slow improvement noted evaluation to date: renal ultrasound unremarkable urine electrolytes non-prerenal rare urine eosinophils - suspect secondary to inflammation in urethra (see wound culture results) CPK low etiology of Rommel likely due to diuretics plus contrast exposure follow trend of repeat labs and UOP (2) Acute respiratory failure with hypercapnia: Code(s): J96.02 - Acute respiratory failure with hypercapnia Status: Acute Assessment and Plan: Pulmonary following COVID, RSV, influenza testing negative CT of chest with moderate pulmonary edema small pleural effusions but no PE diuretics on hold because of the acute kidney injury follow respiratory status (3) Chronic indwelling Mccarty catheter: Code(s): Z97.8 - Presence of other specified devices Status: Chronic Assessment and Plan: presumably due to chronic urinary retention UA negative for infection however, urethral drainage noted on admission uretheral drainage swab with E coli and Klebsiella finished antibiotics (4) Atrial fibrillation: Qualifiers: Atrial fibrillation type: unspecified Qualified Code(s): I48.91 - Unspecified atrial fibrillation Code(s): I48.91 - Unspecified atrial fibrillation Status: Chronic Assessment and Plan: rate control strategy on Eliquis (5) Diabetes mellitus: Code(s): E11.9 - Type 2 diabetes mellitus without complications Status: Chronic Assessment and Plan: follow accu-cheks glycemic control per hospitalists Not much else to add -- will continue to follow intermittently. Subjective Date/time seen: 01/23/23 11:50 Interval history: Follow-up for acute kidney injury/acute renal failure Appears to be doing well since I last saw him; kidney function continues to improve as noted by trend of labs; respiratory status seems relatively stable as well. Exam Narrative: General: elderly but WD/WN male in NAD Heart: Irregularly irregular rhythm; no rub Lungs: clear anteriorly, decreased at bases Abdomen: soft, nontender, nondistended, positive bowel sounds Extremities: no edema Skin: no nodules Objective Data Vital Signs Vital Signs: Vital Signs Temp Pulse Resp BP Pulse Ox O2 Del Method O2 Flow Rate 01/23/23 11:45 75 01/23/23 10:30 96.6 F L 86 16 125/83 100 01/23/23 09:12 96 Nasal Cannula 1.5 01/23/23 09:08 80 20 01/23/23 09:14 70 01/23/23 04:00 73 01/22/23 23:05 73 20 97 BiPAP 01/22/23 20:00 Room Air 01/22/23 20:00 75 01/22/23 20:19 97.6 F 75 18 137/79 95 Intake/Output Intake/Output: Intake & Output 01/20/23 01/21/23 01/22/23 01/23/23 23:59 23:59 23:59 23:59 Intake Total 1910 1800 2200 790 Output Total 1750 4050 2700 Balance 160 -2250 -500 790 Meds/Results Medications: Active Medications Generic Name Dose Route Start Last Admin Trade Name Freq PRN Reason Stop Dose Admin Acetaminophen 650 mg 01/13/23 21:18 Acetaminophen 325 Mg Tablet PO Q4H PRN Mild Pain (1-3) or Fever Apixaban 5 mg 01/13/23 22:45 01/23/23 09:09 Apixaban 5 Mg Tablet PO 5 mg Q12HR LAURA Administration Aspirin 81 mg 01/14/23 08:00 01/23/23 09:10 Aspirin 81 Mg Chewable Tablet PO 81 mg DAILY@0800 LAURA Administration Atorvastatin Calcium 20 mg 01/13/23 23:00 01/22/23 20:25 Atorvastatin 20 Mg Tablet PO 20 mg HS LAURA Administration Bisacodyl 10 mg 01/13/23 22:44 Bisacodyl 10 Mg Suppository RECTAL DAILY PRN Constipation Bumetanide 1 mg 01/16/23 17:00 01/18/23 17:00 Bumetanide 1 Mg Tablet PO 1 mg BID LAURA Administration Dextrose 12.5 gm 01/13/23 21:18 Dextr
[2023-01-23 16:54] LABS: Glucose Point of Care 140 mg/dl (65-105)
--- NOTE | 2023-01-23 17:08 | PM.IMPN ---
Progress Note: A&P Assessment and Plan (1) Acute respiratory failure with hypercapnia: Code(s): J96.02 - Acute respiratory failure with hypercapnia Status: Acute Assessment and Plan: Obesity-Hypoventilation Syndrome Doing well with BiPAP with O2 2 LPM at night, on RA in the day Spoke with pulmonology in detail. He needs to be on non invasive ventilator with AVAPS setting. Trilogy setup ordered by Pulmonary Care coordination to arrange patient transfer (2) Urinary retention: Code(s): R33.9 - Retention of urine, unspecified Status: Acute Assessment and Plan: Continue Mccarty catheter Change Mccarty catheter if not changed since admission (3) Chronic kidney disease: Code(s): N18.9 - Chronic kidney disease, unspecified Status: Acute Assessment and Plan: Renal function slowly improving. creat is 1.3 today (4) Diabetes mellitus: Code(s): E11.9 - Type 2 diabetes mellitus without complications Status: Chronic Assessment and Plan: chronic and stable sugars continue accuchecks and SSI (5) UTI (urinary tract infection): Code(s): N39.0 - Urinary tract infection, site not specified Status: Acute Assessment and Plan: E. coli and K. pneumo sens to meropenem Patient received IV meropenem for complicated CAUTI, switched to IV ertapenem for 2 days to complete 7 days course (6) Atrial fibrillation: Qualifiers: Atrial fibrillation type: unspecified Qualified Code(s): I48.91 - Unspecified atrial fibrillation Code(s): I48.91 - Unspecified atrial fibrillation Status: Chronic Assessment and Plan: Continue Eliquis, diltiazem Monitor heart rate closely May adjust diltiazem and metoprolol doses Plan pt admitted for acute respiratory failure, chf excerbation and pleural effusion Tolerating BiPAP at night on room air in the day HR was low yesterday plan to hold diltiazem today and give metoprolol From pulmonology plan is to dc back to facility soon, after checking what machine they have there and completing IV abx ? Patient seen and examined at bedside during my morning rounds ? Collaborated with patient's nurse at the bedside in detail and addressed all concerns ? Labs, electrolytes, radiology, investigations and test results reviewed ? Consult/Nursing/Ancilliary notes on the chart reviewed and appreciated ? Spoke with patient at the bedside and answered all the questions that they had Repeat labs in a.m. Electrolyte replacement as per protocol. Patient will be monitored very closely on the floor. Further recommendations as per the hospital course. Subjective Date/time seen: 01/23/23 17:08 Interval history: Patient lying in bed. Cooperative and pleasant. Appears tired and fatigued Review of Systems Review of Systems: 14 systems were reviewed with pertinent positives and negatives per HPI. Except as documented in the HPI/progress notes, all other systems were reviewed and are negative. All systems reviewed & are unremarkable except as noted in HPI and below Exam Narrative: HEENT: PERRL, sclerae nonicteric, pharyngeal mucosa pink and intact NECK: No JVD CHEST: Clear to auscultation. Normal effort. HEART: NL S1/S2, regular, no murmur ABDOMEN: BS+, soft, nontender, no mass, no bruits EXTREMITIES: No cyanosis, edema, or clubbing NEUROLOGIC: CN intact and symmetric to inspection. Speech dysarthric MUSCULOSKELETAL: Tone and strength symmetric in daytime babysitter. PSYCH: Alert. Oriented to person, place, and time Objective Data Vital Signs Vital Signs: Vital Signs - 24 hr 01/22/23 20:19 01/22/23 20:00 01/22/23 20:00 Temperature 36.4 C Pulse Rate 75 75 Respiratory Rate 18 Blood Pressure 137/79 Pulse Oximetry 95 Oxygen Delivery Room Air Oxygen Flow Rate 01/22/23 23:05 01/23/23 04:00 01/23/23 09:14 Temperature Pulse Rate 73 73 70 Respiratory Rate 20 Blood Pressur
[2023-01-23] MEDS: ATORVASTATIN 20 MG TABLET PO (20:47)
--- NOTE | 2023-01-23 22:30 | PC.NURSE ---
2130 report received from [facility]. upon assessment patient resting in bed, VSS, denies pain, blanton draining to gravity free off the floor with stat lock in place. will continue to monitor
[2023-01-24] VITALS (14 sets, daily range): BP systolic 119–126; BP diastolic 68–81; PULSE 61–96; RESP 18–24; TEMP 36–36.5; O2SAT 95–98
[2023-01-24 03:24] LABS: Glucose Point of Care 184 mg/dl (65-105)
[2023-01-24] MEDS: ERTAPENEM 1 GM/NS 50 ML 1 GM/50 ML BAG IVPB (05:13)
[2023-01-24] MEDS: LEVOTHYROXINE SODIUM 50 MCG TABLET PO (05:40)
[2023-01-24 05:52] LABS: Basophils Absolute Auto 0.1 K/mm3 (0.0-0.1); Basophils Percent Auto 0.6 % (0.2-1.2); Eosinophils Absolute Auto 0.2 K/mm3 (0-0.3); Eosinophils Percent Auto 1.9 % (0-4.4); Hematocrit 34.6 % (42.0-52.0); Hemoglobin 10.6 g/dL (14.0-18.0); Immature Granulocyte Absolute 0.04 K/mm3 (0.00-0.031); Immature Granulocyte Percent A 0.5 % (0-0.5); Lymphocytes Absolute Auto 1.51 K/mm3 (0.9-3.2); Lymphocytes Percent Auto 19.5 % (18.3-44.2); Mean Corpuscular HGB Conc 30.6 g/dl (32-36); Mean Corpuscular Hemoglobin 29.9 pg (26-34); Mean Corpuscular Volume 97.7 fl (80-100); Mean Platelet Volume 9.6 fl (7.4-10.4); Monocytes Absolute Auto 0.9 K/mm3 (0.1-0.6); Monocytes Percent Auto 11.3 % (2.6-8.5); Neutrophils Absolute Auto 5.1 K/mm3 (1.3-6.7); Neutrophils Percent Auto 66.2 % (45.5-73.1); Platelet Count Result 165 k/mm3 (150-375); Red Blood Count 3.54 M/mm3 (4.6-6.20); Red Cell Distribution Width 13.2 % (11.5-14.5); White Blood Count 7.8 K/mm3 (4.5-10.0)
[2023-01-24 06:03] LABS: Anion Gap 6 mmol/L (8-16); Blood Urea Nitrogen 40 mg/dL (9-20); Calcium 9.6 mg/dL (8.4-10.2); Carbon Dioxide 25 mmol/L (22-30); Chloride 104 mmol/L (98-107); Estimated CRCL calculation 66 ml/min; Estimated Glomerular Filt Rate > 60; Glucose 143 mg/dL (65-110); Potassium 4.4 mmol/L (3.4-5.0); Sodium 135 mmol/L (137-145)
[2023-01-24] MEDS: FLUTICASONE/UMECLIDIN/VILANTER 100-62.5-25 MCG ELLIPTA 1 PUFF INHALATION (07:28)
[2023-01-24 08:27] LABS: Glucose Point of Care 128 mg/dl (65-105)
[2023-01-24] MEDS: METOPROLOL SUCCINATE EXT REL 25 MG TABCR PO (08:47)
[2023-01-24] MEDS: ASPIRIN 81 MG CHEWABLE TABLET PO (08:47)
[2023-01-24] MEDS: APIXABAN 5 MG TABLET PO ×2 (08:48→20:35)
[2023-01-24] MEDS: dilTIAZem HCL CD 180 MG CAP.24HR PO (08:48)
[2023-01-24] MEDS: LORATADINE 10 MG TABLET PO (08:48)
[2023-01-24] MEDS: PANTOPRAZOLE 40 MG TABLET PO (08:48)
[2023-01-24] MEDS: TOLNAFTATE 1% POWDER 45 GM BTL 1 APPLIC TOPICAL ×2 (08:49→20:36)
[2023-01-24 11:55] LABS: Glucose Point of Care 166 mg/dl (65-105)
[2023-01-24 16:57] LABS: Glucose Point of Care 140 mg/dl (65-105)
--- NOTE | 2023-01-24 18:29 | PM.IMPN ---
Progress Note: A&P Assessment and Plan (1) Acute respiratory failure with hypercapnia: Code(s): J96.02 - Acute respiratory failure with hypercapnia Status: Acute Assessment and Plan: Obesity-Hypoventilation Syndrome Doing well with BiPAP with O2 2 LPM at night, on RA in the day Spoke with pulmonology in detail. He needs to be on non invasive ventilator with AVAPS setting. Trilogy setup ordered by Pulmonary Care coordination to arrange patient transfer (2) Urinary retention: Code(s): R33.9 - Retention of urine, unspecified Status: Acute Assessment and Plan: Continue Mccarty catheter Change Mccarty catheter if not changed since admission (3) Chronic kidney disease: Code(s): N18.9 - Chronic kidney disease, unspecified Status: Acute Assessment and Plan: Renal function slowly improving. creat is 1.1 today (4) Diabetes mellitus: Code(s): E11.9 - Type 2 diabetes mellitus without complications Status: Chronic Assessment and Plan: chronic and stable sugars continue accuchecks and SSI (5) UTI (urinary tract infection): Code(s): N39.0 - Urinary tract infection, site not specified Status: Acute Assessment and Plan: E. coli and K. pneumo sens to meropenem Patient received IV meropenem for complicated CAUTI, switched to IV ertapenem for one more day to complete 7 days course (6) Atrial fibrillation: Qualifiers: Atrial fibrillation type: unspecified Qualified Code(s): I48.91 - Unspecified atrial fibrillation Code(s): I48.91 - Unspecified atrial fibrillation Status: Chronic Assessment and Plan: Continue Eliquis, diltiazem Monitor heart rate closely May adjust diltiazem and metoprolol doses Plan pt admitted for acute respiratory failure, chf excerbation and pleural effusion Tolerating BiPAP at night on room air in the day But up for decreased to 25 mg daily patient is having bradycardic episodes From pulmonology plan is to dc back to facility soon, after checking what machine they have there and completing IV abx ? Patient seen and examined at bedside during my morning rounds ? Collaborated with patient's nurse at the bedside in detail and addressed all concerns ? Labs, electrolytes, radiology, investigations and test results reviewed ? Consult/Nursing/Ancilliary notes on the chart reviewed and appreciated ? Spoke with patient at the bedside and answered all the questions that they had Repeat labs in a.m. Electrolyte replacement as per protocol. Patient will be monitored very closely on the floor. Further recommendations as per the hospital course. Time Spent With Patient Time with patient: 25 - 35 minutes Subjective Date/time seen: 01/24/23 18:29 Interval history: Patient lying in bed. Cooperative and pleasant. No major issues. Review of Systems Review of Systems: 14 systems were reviewed with pertinent positives and negatives per HPI. Except as documented in the HPI/progress notes, all other systems were reviewed and are negative. Exam Narrative: HEENT: PERRL, sclerae nonicteric, pharyngeal mucosa pink and intact NECK: No JVD CHEST: Clear to auscultation. Normal effort. HEART: NL S1/S2, regular, no murmur ABDOMEN: BS+, soft, nontender, no mass, no bruits EXTREMITIES: No cyanosis, edema, or clubbing NEUROLOGIC: CN intact and symmetric to inspection. Speech dysarthric MUSCULOSKELETAL: Tone and strength symmetric in food order delivery runner. PSYCH: Alert. Oriented to person, place, and time Objective Data Vital Signs Vital Signs: Vital Signs - 24 hr 01/23/23 19:31 01/23/23 20:00 01/23/23 20:00 Temperature 36.1 C L Pulse Rate 70 61 Respiratory Rate 20 Blood Pressure 117/78 Pulse Oximetry 99 96 Oxygen Delivery Nasal Cannula Oxygen Flow Rate 2 01/23/23 22:00 01/24/23 00:00 01/24/23 01:24 Temperature 36.1 C L Pulse Rate 73 80 80 Respiratory Rate 18 20 20 Blo
[2023-01-24] MEDS: ATORVASTATIN 20 MG TABLET PO (20:35)
[2023-01-24 21:03] LABS: Glucose Point of Care 163 mg/dl (65-105)
[2023-01-25] VITALS (8 sets, daily range): BP systolic 120–133; BP diastolic 66–81; PULSE 60–73; RESP 20–24; TEMP 36.2–36.4; O2SAT 97–100
[2023-01-25] MEDS: ERTAPENEM 1 GM/NS 50 ML 1 GM/50 ML BAG IVPB (05:38)
[2023-01-25] MEDS: LEVOTHYROXINE SODIUM 50 MCG TABLET PO (05:39)
[2023-01-25 05:51] LABS: Basophils Percent Auto 0.5 % (0.2-1.2); Eosinophils Absolute Auto 0.2 K/mm3 (0-0.3); Eosinophils Percent Auto 2.1 % (0-4.4); Hematocrit 34.9 % (42.0-52.0); Hemoglobin 10.9 g/dL (14.0-18.0); Immature Granulocyte Absolute 0.04 K/mm3 (0.00-0.031); Immature Granulocyte Percent A 0.5 % (0-0.5); Lymphocytes Absolute Auto 2.15 K/mm3 (0.9-3.2); Lymphocytes Percent Auto 26.6 % (18.3-44.2); Mean Corpuscular HGB Conc 31.2 g/dl (32-36); Mean Corpuscular Volume 96.1 fl (80-100); Mean Platelet Volume 9.6 fl (7.4-10.4); Monocytes Percent Auto 11.7 % (2.6-8.5); Neutrophils Absolute Auto 4.7 K/mm3 (1.3-6.7); Neutrophils Percent Auto 58.6 % (45.5-73.1); Platelet Count Result 180 k/mm3 (150-375); Red Blood Count 3.63 M/mm3 (4.6-6.20); Red Cell Distribution Width 13.2 % (11.5-14.5); White Blood Count 8.1 K/mm3 (4.5-10.0)
[2023-01-25 06:02] LABS: Anion Gap 4 mmol/L (8-16); Blood Urea Nitrogen 35 mg/dL (9-20); Calcium 9.8 mg/dL (8.4-10.2); Carbon Dioxide 29 mmol/L (22-30); Chloride 102 mmol/L (98-107); Estimated CRCL calculation 62 ml/min; Estimated Glomerular Filt Rate 59; Glucose 137 mg/dL (65-110); Potassium 4.9 mmol/L (3.4-5.0); Sodium 135 mmol/L (137-145)
[2023-01-25 08:28] LABS: Glucose Point of Care 131 mg/dl (65-105)
[2023-01-25] MEDS: FLUTICASONE/UMECLIDIN/VILANTER 100-62.5-25 MCG ELLIPTA 1 PUFF INHALATION (08:56)
[2023-01-25] MEDS: TOLNAFTATE 1% POWDER 45 GM BTL 1 APPLIC TOPICAL (09:22)
[2023-01-25] MEDS: APIXABAN 5 MG TABLET PO (09:22)
[2023-01-25] MEDS: ASPIRIN 81 MG CHEWABLE TABLET PO (09:22)
[2023-01-25] MEDS: METOPROLOL SUCCINATE EXT REL 25 MG TABCR PO (09:24)
[2023-01-25] MEDS: dilTIAZem HCL CD 180 MG CAP.24HR PO (09:26)
[2023-01-25] MEDS: LORATADINE 10 MG TABLET PO (09:26)
[2023-01-25] MEDS: PANTOPRAZOLE 40 MG TABLET PO (09:26)
[2023-01-25 12:31] LABS: Glucose Point of Care 191 mg/dl (65-105)
--- NOTE | 2023-01-25 12:43 | PM.DS ---
DS: Admitting Diagnosis Discharge Date 01/25/2023: Admitting Diagnosis Acute respiratory failure with hypercapnia CHF exacerbation DS: Discharge Diagnosis Discharge Diagnosis (1) Chronic indwelling Mccarty catheter: Code(s): Z97.8 - Presence of other specified devices Status: Chronic (2) Obesity hypoventilation syndrome: Code(s): E66.2 - Morbid (severe) obesity with alveolar hypoventilation Status: Acute (3) Acute respiratory failure with hypercapnia: Code(s): J96.02 - Acute respiratory failure with hypercapnia Status: Acute (4) UTI (urinary tract infection): Code(s): N39.0 - Urinary tract infection, site not specified Status: Acute (5) PIPE (acute kidney injury): Code(s): N17.9 - Acute kidney failure, unspecified Status: Acute (6) Chronic respiratory failure with hypoxia: Code(s): J96.11 - Chronic respiratory failure with hypoxia Status: Acute (7) Atrial fibrillation: Qualifiers: Atrial fibrillation type: unspecified Qualified Code(s): I48.91 - Unspecified atrial fibrillation Code(s): I48.91 - Unspecified atrial fibrillation Status: Chronic (8) Morbid obesity: Code(s): E66.01 - Morbid (severe) obesity due to excess calories Status: Acute (9) Chronic kidney disease: Code(s): N18.9 - Chronic kidney disease, unspecified Status: Acute (10) Diabetes mellitus: Code(s): E11.9 - Type 2 diabetes mellitus without complications Status: Chronic (11) Critical illness neuropathy: Code(s): 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 20:46 Chief Complaint: Patient transferred from senior care for evaluation due to altered mental status Narrative: He is a pleasantly confused gentleman who has recently been placed in the senior care for admission status post sepsis which was treated in another hospital.? Patient developed altered mental status and transferred to the ER for evaluation.? Workup was done which showed findings consistent with? pulmonary edema and? pleural effusions.? He also had hypercapnia on ABGs hence placed on BiPAP.? He likely uses nasal cannula at baseline, but he could not recall due to confusion.? His picture from the senior care showed a nasal cannula in place.? He was given 1 dose of IV Lasix and is being placed for close monitoring and medical management. HOSPITAL COURSE ... Date of Admission - 01/24/2023: (1) Acute respiratory failure with hypercapnia: ?Code(s): J96.02 - Acute respiratory failure with hypercapnia ?Status:?Acute ?Assessment and Plan: Obesity-Hypoventilation Syndrome Doing well with BiPAP with O2 2 LPM at night, on RA in the day Spoke with pulmonology in detail.? He needs to be on non invasive ventilator with AVAPS setting.? Trilogy setup ordered by Pulmonary Care coordination to arrange patient transfer(2) Urinary retention: ?Code(s): R33.9 - Retention of urine, unspecified ?Status:?Acute ?Assessment and Plan: Continue Mccarty catheter Change Mccarty catheter if not changed since admission(3) Chronic kidney disease: ?Code(s): N18.9 - Chronic kidney disease, unspecified ?Status:?Acute ?Assessment and Plan: Renal function slowly improving.? creat is 1.1 today(4) Diabetes mellitus: ?Code(s): E11.9 - Type 2 diabetes mellitus without complications ?Status:?Chronic ?Assessment and Plan: chronic and stable sugars continue accuchecks and SSI(5) UTI (urinary tract infection): ?Code(s): N39.0 - Urinary tract infection, site not specified ?Status:?Acute ?Assessment and Plan: E. coli and K. pneumo sens to meropenem Patient received IV meropenem for co
[2023-01-25 13:48] LABS: SARS-CoV-2 RNA PCR Negative (Negative)
--- NOTE | 2023-01-26 10:34 | P.CDI_ITS ---
CDI Query Clarification Request CHF noted in the assessment and plan. Elevated BNP on 01/13/23 lab work. Pulmonary edema noted on the 01/13/23 chest xray. Lasix listed as a home medication. Patient receiving Bumex. Please specify type and acuity of heart failure if known. * Acute * Chronic * Acute on Chronic * Unknown * Systolic * Diastolic * Combined Systolic and Diastolic * Unknown <Zonia Stone RN - Last Filed: 01/26/23 10:37> Clarified Diagnosis Clarified Diagnosis: Acute on chronic combined systolic and diastolic heart failure <Gerry Mcqueen MD - Last Filed: 02/04/23 07:33>
== END 2023-01-25 14:40 | DRG 291 ==
LOC: ANHED 14:01 → ANHIMU 18:29 → ANH2MED 01-18 21:32
PROVIDERS: Emergency Medicine; Internal Medicine; Internal Medicine Critical Care Medicine; Internal Medicine Nephrology; Internal Medicine Pulmonary Disease; Admitting Provider Hospitalist; Emergency Provider Student in an Organized Health Care Education/Training Program; Visit Provider Family Medicine
DX: I13.0 Hypertensive heart and chronic kidney disease with heart failure and stage 1 through stage 4 chronic kidney disease, or unspecified chronic kidney disease (principal); I50.43 Acute on chronic combined systolic (congestive) and diastolic (congestive) heart failure; J96.22 Acute and chronic respiratory failure with hypercapnia; T83.511A Infection and inflammatory reaction due to indwelling urethral catheter, initial encounter; N39.0 Urinary tract infection, site not specified; Z68.42 Body mass index [BMI] 45.0-49.9, adult; E87.1 Hypo-osmolality and hyponatremia; E66.2 Morbid (severe) obesity with alveolar hypoventilation; S37.39XA Other injury of urethra, initial encounter; N18.30 Chronic kidney disease, stage 3 unspecified; R33.9 Retention of urine, unspecified; I48.91 Unspecified atrial fibrillation; E11.22 Type 2 diabetes mellitus with diabetic chronic kidney disease; X58.XXXA Exposure to other specified factors, initial encounter; R31.9 Hematuria, unspecified; N18.9 Chronic kidney disease, unspecified; E04.1 Nontoxic single thyroid nodule; Z79.84 Long term (current) use of oral hypoglycemic drugs; Z87.891 Personal history of nicotine dependence; Z79.01 Long term (current) use of anticoagulants; Z79.82 Long term (current) use of aspirin
CPT/HCPCS: 36415; 36600; 71045; 71046; 71275; 73630; 76536; 76770; 80048; 80053; 80069; 81001; 81003; 81050; 82550; 82570; 82805; 82948; 83735; 83880; 84100; 84156; 84300; 84439; 84443; 84484; 84540; 85025; 85380; 85610; 85730; 85999; 87070; 87077; 87086; 87186; 87205; 87635; 87637; 93005; 93306; 94002; 94003; 94640; 94762; 96374; 97110; 97116; 97161; 97165; 97530; 97535; 99285; A9270; J1120; J1335; J1815; J1940; J2185; Q9967

== ENCOUNTER 2024-03-03 10:15 | Inpatient (IN) | payer MEDICARE, OTHER, SELFPAY ==
[2024-03-03] VITALS (17 sets, daily range): BP systolic 115–127; BP diastolic 68–105; PULSE 79–99; RESP 16–29; TEMP 36.5–36.7; O2SAT 90–99
--- NOTE | ~2024-03-03 | CT_ITS ---
CLINICAL INDICATION: Pain, obstruction suspected clinically COMPARISON: None. TECHNIQUE: Multiple contiguous axial images of the abdomen and pelvis were performed following the ad ministration of with 100 mL Omnipaque-350 intravenous contrast The dose-length product (DLP) was 1683.08 mGy-cm. Automated exposure control and iterative reconstruction technique were employed. FINDINGS/OBSERVATIONS: Visualized lower thorax: Bibasilar atelectasis, possibly secondary to volume loss. The heart is enlarged, without pericardial effusion. Small hiatal hernia is present. Liver: The liver enhances homogeneously without enlargement. Gallbladder and biliary system: The gallbladder is only minimally distended, and otherwise unremarkable. Pancreas: 13 mm focus of decreased attenuation within the body of the pancreas. The remainder of the pancreas otherwise enhances homogeneously without ductal dilatation. Spleen: The spleen enhances homogeneously and is not enlarged measuring 4 cm in longitudinal dimension. Kidneys: Rounded subcentimeter foci of fluid attenuation within the bilateral kidneys, statistically representing cysts for which dedicated retroperitoneal ultrasound may provide additional information, when the patient is clinically able. The remainder of the bilateral kidneys otherwise enhance symmetrically without hydronephrosis or yvette l calculi. Adrenal glands: Unremarkable. Gastrointestinal tract: Massive distention of the stomach with fluid and air extending to the second portion of the duodenum, without a clear source of obstruction. No free air is identified. Fecal stasis distends the rectum suggesting fecal impaction. Appendix: The air-filled appendix is of normal caliber (axial series, images 145 through 164). Vasculature: Densely calcified atherosclerotic disease, without aneurysmal dilatation. Lymph nodes: No pathologically enlarged or morphologically suspicious lymph nodes within the retroperitoneum or at the root of the mesentery. Pelvic structures: The bladder demonstrates thickened hyperemic kevin with surrounding inflammatory change for which cys titis is suspected. The prostate gland is poorly visualized, possibly surgically absent. Body wall and musculoskeletal: Small fat-containing umbilical hernia is identified Trace degenerative disease within the lumbosacral spine, with osteophyte formation, disc space narrow ing. IMPRESSION: Findings consistent with gastric outlet obstruction without a discrete source identified. Urgent decompression is suggested. Additional findings suggesting infection of the bladder. Fecal stasis distending the rectum suggesting fecal impaction. Reviewed, dictated and finalized at location A. O MASK INSPECTOR IMPRESSION: Findings consistent with gastric outlet obstruction without a discrete source i dentified. Urgent decompression is suggested. Additional findings suggesting infection of the bladder. Fecal stasis distending the rectum suggesting fecal impaction.
--- NOTE | ~2024-03-03 | US_ITS ---
EXAMINATION: US renal BI DATE: 03/03/2024 17:48 INDICATION: Acute kidney injury TECHNIQUE: Multiple grayscale and Doppler ultrasound images of the kidneys were obtained. COMPARISON: CT abdomen pelvis 03/03/2024. FINDINGS: Exam limited by body habitus. The right kidney measures 11.4 x 5.3 x 6.0 cm. The left kidney measures 12.3 x 7.6 x 6.7 cm. Technical limitations likely resulted in over estimation of renal size. The kid neys demonstrate normal parenchymal echogenicity. Bilateral renal cortical thinning. Bilateral simple renal cysts. Echogenic foci within the right renal calyces and pelvis with posterior shadowing. Echo genic minimally shadowing foci within left renal calyces. There is no hydronephrosis. The bladder is partially decompressed by Mccarty catheter. IMPRESSION: Medical renal disease. Renal atrophy and cortical thinning confirmed in prior CT. Simple bilateral cy sts noted sonographically. The smaller subcentimeter hypodensities seen in the prior CT are not visua lized sonographically, but statistically most likely represent cysts. 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 Reviewed, dictated and finalized at location K. UAGE TEACHER IMPRESSION: Medical renal disease. Renal atrophy and cortical thinning confirmed in prior C T. Simple bilateral cysts noted sonographically. The smaller subcentimeter hypo densities seen in the prior CT are not visualized sonographically, but statisti kayla most likely represent cysts. Bilateral renal echogenicities, in concert w ith the prior CT findings likely represent calculi, staghorn morphology on the right.
--- NOTE | ~2024-03-03 | XR_ITS ---
EXAM: XR abdomen gastric tube insert DATE: 03/03/2024 14:16 HISTORY: ng tube . COMPARISON: None available. FINDINGS: Clear lung bases. NG tube, tip terminates in the distal gastric body/antrum, and side port over the stomach. Severe gastric distention No organomegaly. No abnormal abdominal calcification. De generative changes in the spine. IMPRESSION: NG tube in good position. Severe gastric distention. Reviewed, dictated and finalized at location K. RNATIONAL ACCOUNT EXECUTIVE
--- NOTE | ~2024-03-03 | XR_ITS ---
Upright portable view of the abdomen Clinical history: NG tube placement Findings: NG tube in satisfactory position. Bowel gas pattern is nonspecific. No evidence for obstruc tion or free air. No abnormal mass lesion or calcification is seen. Osseous structures are intact. Impression: NG tube in satisfactory position. Reviewed, dictated and finalized at [facility]. OR SYSTEMS ANALYST Impression: NG tube in satisfactory position.
--- NOTE | ~2024-03-03 | XR_ITS ---
EXAMINATION: XR UGI water soluble w sbs DATE: 03/04/2024 12:42 INDICATION: Gastric outlet obstruction. TECHNIQUE: Water-soluble contrast was administered through the patient's nasogastric tube. A military science teacher ra diograph was obtained. Additional overhead radiographs were obtained during the transit through the s mall bowel. COMPARISON: CT dated 03/03/2024 FINDINGS: Spoilage Worker image demonstrates nasogastric tube with distal tip in proximal side port in the body of the st omach. Large amount of colonic stool which can be seen with constipation. There is prompt passage of contrast from the stomach into the proximal small bowel. There is progressive filling of the small matthew wel with contrast reaching the cecum between 30-45 minutes. There is a normal caliber and mucosal fol d pattern throughout the small bowel. Significant residual contrast in the stomach on the 30 and 45 m inute delayed images. IMPRESSION: 1. No bowel or gastric outlet obstruction. There is however significant retained contrast in the stom ach on the 30 and 45 minute delayed images suggesting possible gastroparesis. Reviewed, dictated and finalized at location A. TRIC SPOT WELDER IMPRESSION: 1. No bowel or gastric outlet obstruction. There is however significant retaine d contrast in the stomach on the 30 and 45 minute delayed images suggesting pos sible gastroparesis.
[2024-03-03 10:53] LABS: Basophils Percent Auto 0.1 % (0.2-1.2); Eosinophils Percent Auto 0.4 % (0-4.4); Hemoglobin 11.8 g/dL (14.0-18.0); Immature Granulocyte Absolute 0.04 K/mm3 (0.00-0.031); Immature Granulocyte Percent A 0.6 % (0-0.5); Lymphocytes Absolute Auto 1.23 K/mm3 (0.9-3.2); Lymphocytes Percent Auto 17.6 % (18.3-44.2); Mean Corpuscular HGB Conc 29.5 g/dl (32-36); Mean Corpuscular Hemoglobin 27.7 pg (26-34); Mean Corpuscular Volume 93.9 fl (80-100); Mean Platelet Volume 10.2 fl (7.4-10.4); Monocytes Absolute Auto 0.5 K/mm3 (0.1-0.6); Monocytes Percent Auto 7.3 % (2.6-8.5); Neutrophils Absolute Auto 5.2 K/mm3 (1.3-6.7); Platelet Count Result 159 k/mm3 (150-375); Red Blood Count 4.26 M/mm3 (4.6-6.20); Red Cell Distribution Width 14.3 % (11.5-14.5)
[2024-03-03 11:09] LABS: Alanine Aminotransferase 11 U/L (6-50); Albumin Level 3.5 g/dL (3.5-5.1); Alkaline Phosphatase 73 U/L (38-126); Aspartate Amino Transferase 20 U/L (17-59); Bilirubin,Total 0.8 mg/dL (0.2-1.3); Blood Urea Nitrogen 54 mg/dL (9-20); Calcium 9.3 mg/dL (8.4-10.2); Carbon Dioxide > 40 mmol/L (22-30); Chloride 89 mmol/L (98-107); Estimated CRCL calculation 42 ml/min; Estimated Glomerular Filt Rate 36; Glucose 173 mg/dL (65-110); Lipase 82 U/L (23-300); Potassium 4.9 mmol/L (3.4-5.0); Sodium 137 mmol/L (137-145)
[2024-03-03 11:18] LABS: Ovalocytes 1+; Platelet Estimate Adequate (Adequate); Schistocytes None Seen
--- NOTE | 2024-03-03 11:38 | ED.GENADULT ---
HPI - General Adult General Chief complaint: Abdominal Pain Stated complaint: abd pain Time Seen by Provider: 03/03/24 10:39 History of Present Illness HPI narrative: 74-year-old male presents to the emergency department for evaluation for diffuse abdominal pain with an outside x-ray that was concerning for obstruction. Patient has prior history of CVA and does have some speech deficit at baseline. Patient however denies any chest pain or shortness of breath but states he was having some abdominal discomfort and indicates epigastrium to umbilicus. Patient does have history of CVA, urinary retention, obesity, type 2 diabetes, hypertension, chronic kidney disease, small-bowel obstruction Related Data Home Medications ?Medication ?Instructions ?Recorded ?Confirmed ?Last Taken ?Type albuterol sulfate 2.5 mg/3 mL 2.5 mg inhalation TID 01/13/23 01/13/23 Unknown History (0.083 %) solution for nebulization apixaban 5 mg tablet (Eliquis) 5 mg PO Q12H 01/13/23 01/13/23 Unknown History aspirin 81 mg chewable tablet 81 mg PO DAILY 01/13/23 01/13/23 Unknown History atorvastatin 20 mg tablet 20 mg PO HS 01/13/23 01/13/23 Unknown History bisacodyl 10 mg rectal suppository 10 mg RECTAL DAILY PRN Constipation 01/13/23 01/13/23 Unknown History diltiazem HCl 180 mg 180 mg PO DAILY 01/13/23 01/13/23 Unknown History capsule,extended release 24 hr fexofenadine 180 mg tablet 180 mg PO DAILY allergies 01/13/23 01/13/23 Unknown History furosemide 40 mg tablet 40 mg PO BID 01/13/23 01/13/23 Unknown History levothyroxine 50 mcg tablet 50 mcg PO DAILY 01/13/23 01/13/23 Unknown History magnesium citrate (Citroma oral 296 ml PO PRN PRN Constipation 01/13/23 01/13/23 Unknown History solution) magnesium hydroxide 400 mg/5 mL 30 ml PO PRN PRN Constipation 01/13/23 01/13/23 Unknown History oral suspension (Milk of Magnesia) metformin 500 mg tablet 500 mg PO BIDWMEAL 01/13/23 01/13/23 Unknown History metoprolol succinate 50 mg 50 mg PO DAILY 01/13/23 01/13/23 Unknown History tablet,extended release 24 hr mupirocin 2 % topical ointment 1 applic topical DAILY 01/13/23 01/13/23 Unknown History ondansetron 4 mg disintegrating 4 mg PO Q6H PRN nasuea 01/13/23 01/13/23 Unknown History tablet pantoprazole 40 mg tablet,delayed 40 mg PO DAILY 01/13/23 01/13/23 Unknown History release (Protonix) Allergies Allergy/AdvReac Type Severity Reaction Status Date / Time lisinopril Allergy Unknown Verified 01/13/23 21:00 Review of Systems Review of Systems: ROS unobtainable: Yes unobtainable due to medical condition [facility] Past Medical History Medical History (Updated 03/03/24 @ 18:07 by Julián Bowen MD) Chronic respiratory failure with hypoxia, on home oxygen therapy Obesity hypoventilation syndrome Osteomyelitis (2019) right foot Hypothyroidism Chronic kidney disease, stage 3 Gastroesophageal reflux disease Obstructive sleep apnea treated with BiPAP Chronic obstructive pulmonary disease Sclerosing mesenteritis Hyperlipidemia Hypertension Deep venous thrombosis Cerebrovascular accident Heart failure with preserved ejection fraction Chronic anticoagulation Type 2 diabetes mellitus Urinary retention Morbid obesity Chronic kidney disease Atrial fibrillation Surgical History Surgical History Status post right foot surgery Family History Family History Father Cancer Mother Chronic obstructive pulmonary disease Cancer Social History Social History (Updated 03/03/24 @ 14:09 by Kimberlyn Braden PA-C) Social History: Surrogate medical decision maker: Code status: Smoking packs per day: 1 Smoking cigarettes per day: 20.0 Years smoked: 15 Smoking pack-years: 15.00 Smoking status: Never smoker Tobacco type: cigarettes Second hand tobacco smoke exposure: Yes Alcohol intake: never Substance use: never Substance use type: does not use Lack of Transportation: No Lack of Food: Never True Current Housing: I Have Housing Concerned About Future Housing: No Difficulty Paying Gas/Electric Bills: No Difficulty Paying for Meds: No Currently Unemployed: No Education: Decline to Answer Difficulty w/ Childcare or Family Care: No Living arrangements: long-term Additional living arrangements comments: [place] Occupation/Education: retired 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 HEAD: normocephalic, atraumatic. EYES: PERRLA/EOMI, conjunctivae clear. NOSE: Normal no drainage EARS:TMS clear with good light reflex. THROAT: Pharynx clear, no exudate. NECK: Supple. No adenopathy, no masses. RESPIRATORY: Airway patent, respirations nonlabored. Clear to auscultation bilaterally, no rales, rhonchi, wheezing. CARDIOVASCULAR: Regular rate and rhythm without murmurs rubs or gallops. ABDOMINAL: Distended abdomen, epigastric and umbilical tenderness to palpation, decreased bowel sounds MUSCULOSKELETAL: Moves all extremities. Strength/ROM intact, No edema, No calf tenderness. NEURO: Alert. Cranial nerves II through XII intact. Good gait. Good coordination SKIN: Warm, dry. Normal Color Course Vital Signs Vital signs: Vital Signs Temperature 98.1 F 03/03/24 10:21 Pulse Rate 85 03/03/24 10:21 Respiratory Rate 20 03/03/24 10:21 Blood Pressure 115/68 03/03/24 10:21 Pulse Oximetry 98 03/03/24 10:21 Oxygen Delivery Nasal Cannula 03/03/24 10:21 Oxygen Flow Rate 2 03/03/24 10:21 Temperature 98.1 F 03/03/24 10:21 Pulse Rate 99 03/03/24 14:15 Respiratory Rate 29 H 03/03/24 14:15 Blood Pressure 126/82 03/03/24 12:16 Pulse Oximetry 93 03/03/24 13:46 Oxygen Delivery Nasal Cannula 03/03/24 10:21 Oxygen Flow Rate 2 03/03/24 10:21 Medical Decision Making [facility] Narrative Medical decision making narrative: 74-year-old male present to ED for evaluation for suspected obstruction. Patient is afebrile with no leukocytosis and a stable hemoglobin 11.8. No significant acute abnormalities to the patient's CMP patient's creatinine is 1.83 which has similar to previous. Patient does have a UA concerning for urinary tract infection. With history of urinary retention a Mccarty catheter was placed and patient was started on IV antibiotics. CT scan was also concerning for gastric outlet obstruction. Surgery, Dr. paulson, was consulted an NG-tube was placed. Case was discussed with hospitalist patient was accepted for admission. Patient was well-appearing at time transfer to the floor. Differential Diagnosis Differential Diagnosis: Colitis, diverticulitis, small-bowel obstruction, UTI, urinary retention, acute kidney injury, chronic kidney disease Vital Signs Vital Signs: Vital Signs Temperature 98.1 F 03/03/24 10:21 Pulse Rate 85 03/03/24 10:21 Respiratory Rate 20 03/03/24 10:21 Blood Pressure 115/68 03/03/24 10:21 Pulse Oximetry 98 03/03/24 10:21 Oxygen Delivery Nasal Cannula 03/03/24 10:21 Oxygen Flow Rate 2 03/03/24 10:21 Temperature 98.1 F 03/03/24 10:21 Pulse Rate 99 03/03/24 14:15 Respiratory Rate 29 H 03/03/24 14:15 Blood Pressure 126/82 03/03/24 12:16 Pulse Oximetry 93 03/03/24 13:46 Oxygen Delivery Nasal Cannula 03/03/24 10:21 Oxygen Flow Rate 2 03/03/24 10:21 Lab Data Lab results reviewed: Yes I reviewed the patient's lab results. 03/03/24 10:47 03/03/24 10:47 Labs: Lab Results 03/03/24 03/03/24 03/03/24 Range/Units 10:47 11:16 15:57 WBC 7.0 (4.5-10.0) K/mm3 RBC 4.26 L (4.6-6.20) M/mm3 Hgb 11.8 L (14.0-18.0) g/dL Hct 40.0 L (42.0-52.0) % MCV 93.9 (80-100) fl MCH 27.7 (26-34) pg MCHC 29.5 L (32-36) g/dl RDW 14.3 (11.5-14.5) % Plt Count 159 (150-375) k/mm3 MPV 10.2 (7.4-10.4) fl Immature Gran % (Auto) 0.6 H (0-0.5) % Neut % (Auto) 74.0 H (45.5-73.1) % Lymph % (Auto) 17.6 L (18.3-44.2) % [place] % (Auto) 7.3 (2.6-8.5) % Eos % (Auto) 0.4 (0-4.4) % Baso % (Auto) 0.1 L (0.2-1.2) % Lymph # (Auto) 1.23 (0.9-3.2) K/mm3 [place] # (Auto) 0.5 (0.1-0.6) K/mm3 Eos # (Auto) 0.0 (0-0.3) K/mm3 Baso # (Auto) 0.0 (0.0-0.1) K/mm3 Abs Immat Gran (auto) 0.04 H (0.00-0.031) K/mm3 Absolute Neuts (auto) 5.2 (1.3-6.7) K/mm3 Absolute Nucleated RBC 0.000 (0.0-0.012) K/mm3 Nucleated RBC % 0.0 (0.0-0.2) % Platelet Estimate Adequate (Adequate) Ovalocytes 1+ Schistocytes None seen Sodium 137 (137-145) mmol/L Potassium 4.9 (3.4-5.0) mmol/L Chloride 89 L (98-107) mmol/L Carbon Dioxide > 40 H (22-30) mmol/L Anion Gap (4-12) mmol/L BUN 54 H D (9-20) mg/dL Creatinine 1.83 H (0.7-1.3) mg/dL Estim Creat Clear Calc 42 ml/min Estimated GFR 36 L (59 - ) Glucose 173 H (65-110) mg/dL POC Capillary Glucose (65-105) mg/dl Serum Osmolality Pending Calcium 9.3 (8.4-10.2) mg/dL Total Bilirubin 0.8 (0.2-1.3) mg/dL AST 20 (17-59) U/L ALT 11 (6-50) U/L Alkaline Phosphatase 73 (38-126) U/L Total Creatine Kinase 25 L (55-170) U/L Total Protein 8.0 (6.3-8.2) g/dL Albumin 3.5 (3.5-5.1) g/dL Lipase 82 (23-300) U/L Urine Color Red H (Yellow) Urine Appearance Turbid H (Clear) Urine pH 7.0 (5.0-9.0) Ur Specific [place] 1.016 (1.001-1.035) Urine Protein 2+ H (Negative) mg/dL Urine Glucose (UA) 2+ H (Negative) mg/dL Urine Ketones Negative (Negative) mg/dL Ur Blood (Man) 3+ H (Negative) Urine Nitrate Negative (Negative) Urine Bilirubin Negative (Negative) Urine Urobilinogen 0.2 (<2.0) mg/dL Add Ur Microanalysis Reviewed Leukocyte Esterase Rfl 3+ H (Negative) VALERIA/UL Urine RBC >100 H (0-2) /hpf Urine WBC >100 H (0-3) /hpf Ur Squamous Epith Cells Moderate (Few) /hpf Urine Bacteria 4+ /hpf Urine Casts 6-10 Urine Eosinophils (None Seen) % Urine Osmolality Ur Random Creatinine U Random Total Protein mg/dL Ur Random Sodium meq/L Ur Random Potassium meq/L Ur Random Chloride U Random Chloride/Creat Urine Creatinine mg/dL Protein/Creat Ratio 2 (0-0.20) mg/mg 03/03/24 03/03/24 03/03/24 Range/Units 16:29 16:29 17:13 WBC (4.5-10.0) K/mm3 RBC (4.6-6.20) M/mm3 Hgb (14.0-18.0) g/dL Hct (42.0-52.0) % MCV (80-100) fl MCH (26-34) pg MCHC (32-36) g/dl RDW (11.5-14.5) % Plt Count (150-375) k/mm3 MPV (7.4-10.4) fl Immature Gran % (Auto) (0-0.5) % Neut % (Auto) (45.5-73.1) % Lymph % (Auto) (18.3-44.2) % [place] % (Auto) (2.6-8.5) % Eos % (Auto) (0-4.4) % Baso % (Auto) (0.2-1.2) % Lymph # (Auto) (0.9-3.2) K/mm3 [place] # (Auto) (0.1-0.6) K/mm3 Eos # (Auto) (0-0.3) K/mm3 Baso # (Auto) (0.0-0.1) K/mm3 Abs Immat Gran (auto) (0.00-0.031) K/mm3 Absolute Neuts (auto) (1.3-6.7) K/mm3 Absolute Nucleated RBC (0.0-0.012) K/mm3 Nucleated RBC % (0.0-0.2) % Platelet Estimate (Adequate) Ovalocytes Schistocytes Sodium (137-145) mmol/L Potassium (3.4-5.0) mmol/L Chloride (98-107) mmol/L Carbon Dioxide (22-30) mmol/L Anion Gap (4-12) mmol/L BUN (9-20) mg/dL Creatinine (0.7-1.3) mg/dL Estim Creat Clear Calc ml/min Estimated GFR (59 - ) Glucose (65-110) mg/dL POC Capillary Glucose 132 H (65-105) mg/dl Serum Osmolality Calcium (8.4-10.2) mg/dL Total Bilirubin (0.2-1.3) mg/dL AST (17-59) U/L ALT (6-50) U/L Alkaline Phosphatase (38-126) U/L Total Creatine Kinase (55-170) U/L Total Protein (6.3-8.2) g/dL Albumin (3.5-5.1) g/dL Lipase (23-300) U/L Urine Color (Yellow) Urine Appearance (Clear) Urine pH (5.0-9.0) Ur Specific [place] (1.001-1.035) Urine Protein (Negative) mg/dL Urine Glucose (UA) (Negative) mg/dL Urine Ketones (Negative) mg/dL Ur Blood (Man) (Negative) Urine Nitrate (Negative) Urine Bilirubin (Negative) Urine Urobilinogen (<2.0) mg/dL Add Ur Microanalysis Leukocyte Esterase Rfl (Negative) [place]/UL Urine RBC (0-2) /hpf Urine WBC (0-3) /hpf Ur Squamous Epith Cells (Few) /hpf Urine Bacteria /hpf Urine Casts Urine Eosinophils None seen (None Seen) % Urine Osmolality Pending Ur Random Creatinine Pending U Random Total Protein 85 mg/dL Ur Random Sodium 39 meq/L Ur Random Potassium 29.9 meq/L Ur Random Chloride Pending U Random Chloride/Creat Pending Urine Creatinine 36.5 37.0 mg/dL Protein/Creat Ratio 2 2.33 H (0-0.20) mg/mg Imaging Data Radiologist's impression: Impressions Abdomen/Pelvis CT 03/03/24 13:19 IMPRESSION: Findings consistent with gastric outlet obstruction without a discrete source identified. Urgent decompression is suggested. Additional findings suggesting infection of the bladder. Fecal stasis distending the rectum suggesting fecal impaction. Abdomen X-Ray 03/03/24 14:20 IMPRESSION: NG tube in good position. Severe gastric distention. Discharge Plan Discharge Clinical Impression: Urinary tract infection, Acute urinary retention, Gastric outlet obstruction Patient Disposition: Still a Patient Condition: Serious
[2024-03-03 11:51] LABS: Bacteria Urine 4+ /hpf; Need Manual Microscopic Reviewed; RBC Urine >100 /hpf (0-2); Squamous Epithelial Cell Urine Moderate /hpf (Few); WBC Urine >100 /hpf (0-3)
[2024-03-03 11:53] LABS: Add Urine Microscopic? YES; Appearance Urine Turbid (Clear); Bilirubin Urine Negative (Negative); Blood Urine 3+ (Negative); Glucose Urine UA 2+ mg/dL (Negative); Ketones Urine Negative (Negative); Leukocyte Esterase Ur 3+ LEU/UL (Negative); Nitrate Urine Negative (Negative); Protein Urine 2+ mg/dL (Negative); Specific Grav Ur 1.016 (1.001-1.035); Urobilinogen Urine 0.2 mg/dL (<2.0)
[2024-03-03 11:54] LABS: Color Urine Red (Yellow)
--- NOTE | 2024-03-03 14:00 | PM.IMHP ---
H&P: HPI History of Present Illness Date/Time: 03/03/24 14:00 Chief Complaint: Abdominal pain. Narrative: This is a 74-year-old male with history of sclerosing mesenteritis, gastroesophageal reflux disease, stroke, cognitive impairment, atrial fibrillation on chronic anticoagulation, congestive heart failure, hypertension, hyperlipidemia, chronic kidney disease, deep venous thrombosis, chronic respiratory failure with hypoxia on oxygen, chronic obstructive pulmonary disease, obstructive sleep apnea on BiPAP, type 2 diabetes mellitus, and hypothyroidism who presented to the emergency department via EMS from a local nursing facility for evaluation of abdominal pain. The patient follows commands and is able to answer some questions with one or two words answers however due to underlying cognitive impairment and speech deficits some of the following is supplemented via a review of his electronic medical records. He reports diffuse abdominal pain of which he cannot fully describe and no bowel movement for several days. A KUB done at his nursing facility showed concerns for possible blockage in he was given a laxative without results and was sent into the ED for evaluation. He also endorses nausea but denies vomiting. He also denies fever, sweats, cold and flu symptoms, chest pain, pleuritic pain, shortness of breath, back pain, and dysuria. In the ED: He was afebrile on arrival with stable vital signs. Labs were significant for WBC count of 7.0, hemoglobin 11.8, chloride 89, carbon dioxide greater than 40, BUN 54, creatinine 1.83, glucose 173. Urinalysis was positive for 2+ protein, 2+ glucose, 3+ blood, 3+ leukocyte esterase, greater than 100 RBC and WBC per high-power field, and 4+ bacteria with moderate squamous cells seen on microscopy. CT of the abdomen pelvis showed findings consistent with gastric outlet obstruction without a discrete sores and fecal stasis distending the rectum suggesting fecal impaction. Surgery was consulted by the ED physician and they recommended NG tube insertion for decompression. He is being admitted to the floor for close monitoring. Review of Systems Review of Systems: 12 systems were reviewed and are negative except for as per HPI. [facility] Past Medical History Medical History Chronic respiratory failure with hypoxia, on home oxygen therapy Obesity hypoventilation syndrome Osteomyelitis (2019) right foot Hypothyroidism Chronic kidney disease, stage 3 Gastroesophageal reflux disease Obstructive sleep apnea treated with BiPAP Chronic obstructive pulmonary disease Sclerosing mesenteritis Hyperlipidemia Hypertension Deep venous thrombosis Cerebrovascular accident Heart failure with preserved ejection fraction Chronic anticoagulation Type 2 diabetes mellitus Urinary retention Morbid obesity Chronic kidney disease Atrial fibrillation Surgical History Surgical History Status post right foot surgery Family History Family History Father Cancer Mother Chronic obstructive pulmonary disease Cancer Social History Social History Social History: Surrogate medical decision maker: Ayana Gaytan, spouse. Code status: Smoking packs per day: 1 Smoking cigarettes per day: 20.0 Years smoked: 15 Smoking pack-years: 15.00 Smoking status: Never smoker Tobacco type: cigarettes Second hand tobacco smoke exposure: Yes Alcohol intake: never Substance use: never Substance use type: does not use Lack of Transportation: No Lack of Food: Never True Current Housing: I Have Housing Concerned About Future Housing: No Difficulty Paying Gas/Electric Bills: No Difficulty Paying for Meds: No Currently Unemployed: No Education: Decline to Answer Difficulty w/ Childcare or Family Care: No Living arrangements: custodial Additional living arrangements comments: [place] Occupation/Education: retired Additional occupation/education comments: [employer] Spiritual care concerns: No Agree to blood products: Yes Meds Home Medications and Allergies Home Medications ?Medication ?Instructions ?Recorded ?Confirmed ?Type tolnaftate 1 % topical powder 1 applic topical Q12HR #1 packet 07/17/19 01/13/23 Rx albuterol sulfate 2.5 mg/3 mL 2.5 mg inhalation TID 01/13/23 01/13/23 History (0.083 %) solution for nebulization apixaban 5 mg tablet (Eliquis) 5 mg PO Q12H 01/13/23 01/13/23 History aspirin 81 mg chewable tablet 81 mg PO DAILY 01/13/23 01/13/23 History atorvastatin 20 mg tablet 20 mg PO HS 01/13/23 01/13/23 History bisacodyl 10 mg rectal suppository 10 mg RECTAL DAILY PRN Constipation 01/13/23 01/13/23 History diltiazem HCl 180 mg 180 mg PO DAILY 01/13/23 01/13/23 History capsule,extended release 24 hr fexofenadine 180 mg tablet 180 mg PO DAILY allergies 01/13/23 01/13/23 History furosemide 40 mg tablet 40 mg PO BID 01/13/23 01/13/23 History levothyroxine 50 mcg tablet 50 mcg PO DAILY 01/13/23 01/13/23 History magnesium citrate (Citroma oral 296 ml PO PRN PRN Constipation 01/13/23 01/13/23 History solution) magnesium hydroxide 400 mg/5 mL 30 ml PO PRN PRN Constipation 01/13/23 01/13/23 History oral suspension (Milk of Magnesia) metformin 500 mg tablet 500 mg PO BIDWMEAL 01/13/23 01/13/23 History metoprolol succinate 50 mg 50 mg PO DAILY 01/13/23 01/13/23 History tablet,extended release 24 hr mupirocin 2 % topical ointment 1 applic topical DAILY 01/13/23 01/13/23 History ondansetron 4 mg disintegrating 4 mg PO Q6H PRN nasuea 01/13/23 01/13/23 History tablet pantoprazole 40 mg tablet,delayed 40 mg PO DAILY 01/13/23 01/13/23 History release (Protonix) fluticasone fur. 100 mcg-umeclid 1 inh inhalation DAILYRT #28 ea 01/25/23 Rx 62.5 mcg-vilant 25 mcg inhalat.powder (Trelegy Ellipta) metoprolol succinate 25 mg 25 mg PO QAM #10 tabs 01/25/23 Rx tablet,extended release 24 hr (Toprol XL) Allergies Allergy/AdvReac Type Severity Reaction Status Date / Time lisinopril Allergy Unknown Verified 01/13/23 21:00 Vital Signs Vital Signs - 24 hr 03/03/24 10:21 03/03/24 11:45 03/03/24 11:46 Temperature 98.1 F Pulse Rate 85 93 96 Respiratory Rate 20 22 H 21 H Blood Pressure 115/68 121/75 Pulse Oximetry 98 Oxygen Delivery Nasal Cannula Oxygen Flow Rate 2 03/03/24 12:00 03/03/24 12:01 03/03/24 12:15 Temperature Pulse Rate 86 90 80 Respiratory Rate 22 H 18 25 H Blood Pressure 127/105 H Pulse Oximetry 96 97 Oxygen Delivery Oxygen Flow Rate 03/03/24 12:16 03/03/24 12:42 Temperature Pulse Rate 86 92 Respiratory Rate 21 H 17 Blood Pressure 126/82 Pulse Oximetry 97 Oxygen Delivery Oxygen Flow Rate Exam Narrative: General: Chronically ill-appearing male in the semi-Flores position in bed in mild pain. Weight: 125.4 kg. BMI: 39.7. HEENT: PERRL, EOMI. Sclera anicteric. NG tube in the right naris draining opaque brown fluid with scattered particulate matter. Tacky mucous membranes. Oropharynx not visualized. Neck: Supple. Exam limited due to neck circumference. Respiratory: Respirations are nonlabored and he appears in no respiratory distress. Lung sounds are a bit diminished but otherwise sound clear to auscultation. Cardiovascular: Regular rate and rhythm with S1-S2. Gastrointestinal: Abdomen is obese and distended with hypoactive bowel sounds. He is tender to palpation and percussion throughout the upper abdomen, more so in the epigastric region and left upper quadrants. Mild guarding but no rebound tenderness. Genitourinary: Mccarty catheter draining cloudy pinkish yellow urine. Skin: Warm and dry. Extremities: No cyanosis or clubbing. Trace lower extremity edema. Neurological: Alert. Mild right-sided mouth droop. Cranial nerves 2-12 are grossly intact. Expressive aphasia but does answer questions in 1 to 2 words. Speech is slightly slurred. Generally weak. Psychiatric: Unable to assess accurately. He seems to be pleasantly confused and is cooperative. H&P: Results Labs Labs: Short CBC 03/03/24 Range/Units 10:47 WBC 7.0 (4.5-10.0) K/mm3 Hgb 11.8 L (14.0-18.0) g/dL Hct 40.0 L (42.0-52.0) % Plt Count 159 (150-375) k/mm3 BMP 03/03/24 10:47 Sodium 137 Potassium 4.9 Chloride 89 L Carbon Dioxide > 40 H BUN 54 H D Creatinine 1.83 H Glucose 173 H Calcium 9.3 Liver Function 03/03/24 Range/Units 10:47 Total Bilirubin 0.8 (0.2-1.3) mg/dL AST 20 (17-59) U/L ALT 11 (6-50) U/L Alkaline Phosphatase 73 (38-126) U/L Albumin 3.5 (3.5-5.1) g/dL Urine 03/03/24 Range/Units 11:16 Urine Color Red H (Yellow) Urine Appearance Turbid H (Clear) Urine pH 7.0 (5.0-9.0) Ur Specific [place] 1.016 (1.001-1.035) Urine Protein 2+ H (Negative) mg/dL Urine Glucose (UA) 2+ H (Negative) mg/dL Imaging Abdomen/Pelvis CT 03/03/24 13:19 IMPRESSION: Findings consistent with gastric outlet obstruction without a discrete source identified. Urgent decompression is suggested. Additional findings suggesting infection of the bladder. Fecal stasis distending the rectum suggesting fecal impaction. Assessment and Plan Assessment and plan (1) Gastric outlet obstruction: Code(s): K31.1 - Adult hypertrophic pyloric stenosis Status: Acute (2) Urinary tract infection: Code(s): N39.0 - Urinary tract infection, site not specified Status: Acute (3) Acute kidney injury: Code(s): N17.9 - Acute kidney failure, unspecified Status: Acute (4) Fecal impaction: Code(s): K56.41 - Fecal impaction Status: Acute (5) Type 2 diabetes mellitus: Code(s): E11.9 - Type 2 diabetes mellitus without complications Status: Acute (6) Heart failure with preserved ejection fraction: Code(s): I50.30 - Unspecified diastolic (congestive) heart failure Status: Acute (7) Atrial fibrillation: Qualifiers: Atrial fibrillation type: unspecified Qualified Code(s): I48.91 - Unspecified atrial fibrillation Code(s): I48.91 - Unspecified atrial fibrillation Status: Chronic (8) Hypertension: Code(s): I10 - Essential (primary) hypertension Status: Acute (9) Chronic anticoagulation: Code(s): Z79.01 - FDC (current) use of anticoagulants Status: Acute (10) Chronic obstructive pulmonary disease: Code(s): J44.9 - Chronic obstructive pulmonary disease, unspecified Status: Acute (11) Obstructive sleep apnea treated with BiPAP: Code(s): G47.33 - Obstructive sleep apnea (adult) (pediatric) Status: Acute (12) Chronic respiratory failure with hypoxia, on home oxygen therapy: Code(s): J96.11 - Chronic respiratory failure with hypoxia; Z99.81 - Dependence on supplemental oxygen Status: Acute Plan The patient presented to the emergency department for evaluation of abdominal pain as detailed in the HPI. Labs, imaging, EKG, and all reports were personally reviewed. CT scan showed a severely distended stomach concerning for gastric outlet obstruction without obvious source identified. Surgery was consulted and they recommend NG tube for decompression. Analgesics and antiemetics are available as needed. He has evidence of a urinary tract infection on imaging and urinalysis is also concerning and he has been started on ceftriaxone pending urine cultures. He has an acute kidney injury of unclear etiology. He has a history of urinary retention though his bladder does not look enlarged on CT scan however a Mccarty catheter has been inserted for strict I/O. All medications will be renally dosed and nephrotoxic agents will be avoided. He will be judiciously hydrated overnight with close monitoring of volume status. Renal ultrasound and urine electrolytes have been ordered for further evaluation. CT also shows findings of fecal impaction and an enema has been ordered. Once the gastric distention resolves he can be started on an aggressive bowel regimen. Volume status is euvolemic though he does appear a bit dry by labs with an elevated BUN and creatinine in his serum carbon dioxide of greater than 40. Avoid over-hydration and monitor daily weights. Initiate sliding scale insulin, Accu-Cheks, and hypoglycemic protocol. Hold apixaban in case he requires surgery. BiPAP will be provided for the patient to use while hospitalized. His medications will be reviewed and transition to IV form if appropriate. Findings and treatment plan were discussed with the patient. Questions were solicited and answered to satisfaction. The patient's medical management will be taken over by the hospitalist team in a.m. Quality VTE Prophylaxis VTE prophylaxis: mechanical ordered If No VTE Prophylaxis Answer both mechanical and pharmacologic: Reason no pharmacologic proph: medical contraindication (may need surgery) Hospitalist MIPS Advance Care Plan I have confirmed that the patient's Advanced Care Plan is present, code status is documented, or surrogate decision maker is listed in patient medical record.: Yes Medication Reconciliation I have utilized all available resources to obtain, update and review the patients current medications (includes all prescriptions, OTC, herbals, cannabis, and nutritional supplements).: Yes
--- NOTE | 2024-03-03 14:21 | PC.NURSE ---
NG placed, 12 fr [place]. pt tolerated well, secured at 78cm to right nostril. xray completed, cleared to use NG tube by Dr. Bowen. NG hooked up to low intermittent suction. patient denies any discomfort or nausea.
--- NOTE | 2024-03-03 15:44 | ADMGEN ---
This patient, Hans Gaytan, was admitted to Medical Room 240-. Patient/family oriented to hospital policies and general routines including ID bracelet, bed and alarms, visiting hours, pain management, procedures, bathroom and other care routines, personal items, smoking policy, room service/diet, and visiting hours. Information on how to activate the Rapid Response Team has been discussed. Patient/Family are encouraged to report perceived risks to care and to ask questions if they do not understand what they are told or what they should do.
[2024-03-03 16:48] LABS: Creatinine Urine 36.5 mg/dL; Total Protein Urine Random 85 mg/dL; Ur Ttl Prot Creatinine Ratio 2.33 mg/mg (0-0.20)
[2024-03-03] MEDS: SODIUM CHLORIDE 0.9% IV 1,000 ML 125 ML IV CONT (16:58)
[2024-03-03 16:59] LABS: Creatine Kinase 25 U/L (55-170)
[2024-03-03 17:07] LABS: Potassium Urine Random 29.9 meq/L; Sodium Urine Random 39 meq/L
[2024-03-03 17:23] LABS: Glucose Point of Care 132 mg/dl (65-105)
[2024-03-03 17:31] LABS: Eosinophil Urine None Seen % (None Seen); Urine Eos QC 2nd Tech Confirmed
[2024-03-04] VITALS (9 sets, daily range): BP systolic 101–135; BP diastolic 56–89; PULSE 76–99; RESP 16–20; TEMP 36.4–36.8; O2SAT 91–98
[2024-03-04 00:52] LABS: Glucose Point of Care 112 mg/dl (65-105)
[2024-03-04] MEDS: SODIUM CHLORIDE 0.9% IV 1,000 ML 125 ML IV CONT ×3 (01:09→20:56)
[2024-03-04] MEDS: MORPHINE SULFATE (*CRX) 2 MG/ML INJ IV PUSH ×3 (01:10→21:34)
[2024-03-04 05:42] LABS: Glucose Point of Care 105 mg/dl (65-105)
[2024-03-04 06:11] LABS: Basophils Percent Auto 0.1 % (0.2-1.2); Eosinophils Absolute Auto 0.1 K/mm3 (0-0.3); Hematocrit 38.3 % (42.0-52.0); Immature Granulocyte Absolute 0.04 K/mm3 (0.00-0.031); Immature Granulocyte Percent A 0.4 % (0-0.5); Lymphocytes Absolute Auto 1.37 K/mm3 (0.9-3.2); Lymphocytes Percent Auto 13.6 % (18.3-44.2); Mean Corpuscular HGB Conc 28.7 g/dl (32-36); Mean Corpuscular Hemoglobin 27.9 pg (26-34); Mean Corpuscular Volume 97.2 fl (80-100); Mean Platelet Volume 10.7 fl (7.4-10.4); Monocytes Absolute Auto 1.1 K/mm3 (0.1-0.6); Monocytes Percent Auto 10.7 % (2.6-8.5); Neutrophils Absolute Auto 7.5 K/mm3 (1.3-6.7); Neutrophils Percent Auto 74.2 % (45.5-73.1); Platelet Count Result 179 k/mm3 (150-375); Red Blood Count 3.94 M/mm3 (4.6-6.20); Red Cell Distribution Width 14.3 % (11.5-14.5); White Blood Count 10.1 K/mm3 (4.5-10.0)
[2024-03-04 06:19] LABS: Hemoglobin A1C 7.5 % (<5.7)
[2024-03-04 06:24] LABS: Alanine Aminotransferase 9 U/L (6-50); Albumin Level 3.2 g/dL (3.5-5.1); Alkaline Phosphatase 68 U/L (38-126); Aspartate Amino Transferase 14 U/L (17-59); Bilirubin,Total 0.6 mg/dL (0.2-1.3); Blood Urea Nitrogen 48 mg/dL (9-20); Calcium 9.4 mg/dL (8.4-10.2); Chloride 91 mmol/L (98-107); Estimated CRCL calculation 43 ml/min; Estimated Glomerular Filt Rate 37; Glucose 101 mg/dL (65-110); Magnesium 2.4 mg/dL (1.6-2.3); Sodium 140 mmol/L (137-145)
[2024-03-04 06:45] LABS: Carbon Dioxide > 40 mmol/L (22-30)
[2024-03-04 07:27] LABS: Hypochromasia 1+; Ovalocytes 1+; Platelet Estimate Adequate (Adequate); Schistocytes None Seen
--- NOTE | 2024-03-04 10:44 | P.CONGS_ITS ---
Assessment and Plan Assessment and plan (1) Gastric outlet obstruction: Code(s): K31.1 - Adult hypertrophic pyloric stenosis Status: Acute Assessment and Plan: * The patient presented from the retirement with abdominal pain and constipation. Unclear if he had any vomiting as the patient is a poor historian. CT scan of the abdomen and pelvis showed findings of possible gastric outlet obstruction without definitive source. He does not have an acute surgical abdomen and seems to be clinically improving with NG tube decompression. He is not having any abdominal pain and his plain films today show his stomach has been decompressed. Will order a water soluble upper GI with small bowel series today to further evaluate the gastric outlet obstruction. He may require endoscopic evaluation by GI depending on upper GI/SBS results. No indication for emergent surgical intervention. Will continue to follow along. (2) Fecal impaction: Code(s): K56.41 - Fecal impaction Status: Acute Assessment and Plan: * Fecal impaction noted on CT. He was given an enema on admission and does not appear he has had any bowel movements. See plan above. Will be receiving water soluble contrast for UGI/SBS which may help move things through. Could also give another enema if needed. (3) Atrial fibrillation: Qualifiers: Atrial fibrillation type: unspecified Qualified Code(s): I48.91 - Unspecified atrial fibrillation Code(s): I48.91 - Unspecified atrial fibrillation Status: Chronic (4) UTI (urinary tract infection): Code(s): N39.0 - Urinary tract infection, site not specified Status: Acute Assessment and Plan: * UA suggests UTI. Currently on ceftriaxone, urine culture pending. 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 (6) Type 2 diabetes mellitus: Code(s): E11.9 - Type 2 diabetes mellitus without complications Status: Acute (7) Morbid obesity: Code(s): E66.01 - Morbid (severe) obesity due to excess calories Status: Acute (8) Chronic kidney disease: Code(s): N18.9 - Chronic kidney disease, unspecified Status: Acute (9) Chronic respiratory failure with hypoxia, on home oxygen therapy: Code(s): J96.11 - Chronic respiratory failure with hypoxia; Z99.81 - Dependence on supplemental oxygen Status: Acute (10) Obstructive sleep apnea treated with BiPAP: Code(s): G47.33 - Obstructive sleep apnea (adult) (pediatric) Status: Acute (11) Heart failure with preserved ejection fraction: Code(s): I50.30 - Unspecified diastolic (congestive) heart failure Status: Acute (12) Hypertension: Code(s): I10 - Essential (primary) hypertension Status: Acute Plan I have discussed the patient's case and plan of care with Dr. Montanez. Thank you for allowing us to see the patient in consultation and we will continue to follow along with you. History of Present Illness Consult details Consult date: 03/04/24 Reason for consult: other (Gastric outlet obstruction) Requesting physician: Julián Bowen MD Narrative: This is a 74-year-old man with PMH of sclerosing mesenteritis, GERD, stroke, cognitive impairment, atrial fibrillation on chronic anticoagulation, CHF, HTN, hyperlipidemia, CKD, DVT, chronic respiratory failure with hypoxia on oxygen, COPD, HOMER on BiPAP, type 2 diabetes mellitus, and hypothyroidism, who we have been asked to see in surgical consultation for gastric outlet obstruction. He presented to the ED from a local retirement for evaluation of abdominal pain. The patient is a poor historian with cognitive impairment and previous stroke, therefore his history is obtained primarily from review of the electronic medical record. He is only oriented to self, but not time or place. He was unsure of the events leading up to his admission. He apparently had diffuse abdominal pain and constipation prior to admission. KUB done at the nursing facility showed concerns for possible bowel obstruction. He was given a laxative without results and then subsequently sent to the ED for evaluation. It is unclear if he ever had any vomiting, but does endorse nausea. In the ED, he was afebrile with stable vital signs. Labs were significant for WBC count of 7.0, hemoglobin 11.8, chloride 89, carbon dioxide greater than 40, BUN 54, creatinine 1.83, glucose 173. UA suggest possible UTI. CT scan of the abdomen and pelvis showed findings of severe gastric distension consistent with gastric outlet obstruction without a discrete source, and fecal stasis distending the rectum suggesting fecal impaction. He was admitted and an NG tube has been placed. Our service was consulted and he is now seen on the medical floor. He denies any abdominal pain. His main complaint is thirst and hunger. He cannot recall his last bowel movement or if he has had flatus this morning. There is about 600 cc of greenish brown output in the canister from his NG tube. He also has a sitter at the bedside. He denies any previous abdominal surgeries and there are no obvious abdominal scars noted on exam. Review of Systems 2 Review of Systems: ROS unobtainable: Yes unobtainable due to mental status PMFSH Past Medical History Medical History Chronic respiratory failure with hypoxia, on home oxygen therapy Obesity hypoventilation syndrome Osteomyelitis (2019) right foot Hypothyroidism Chronic kidney disease, stage 3 Gastroesophageal reflux disease Obstructive sleep apnea treated with BiPAP Chronic obstructive pulmonary disease Sclerosing mesenteritis Hyperlipidemia Hypertension Deep venous thrombosis Cerebrovascular accident Heart failure with preserved ejection fraction Chronic anticoagulation Type 2 diabetes mellitus Urinary retention Morbid obesity Chronic kidney disease Atrial fibrillation Surgical History Surgical History Status post right foot surgery Family History Family History Father Cancer Mother Chronic obstructive pulmonary disease Cancer Social History Social History Social History: Surrogate medical decision maker: [place]an[place] GilmoreGaytan, spouse. Code status: Smoking packs per day: 1 Smoking cigarettes per day: 20.0 Years smoked: 15 Smoking pack-years: 15.00 Smoking status: Never smoker Tobacco type: cigarettes Second hand tobacco smoke exposure: Yes Alcohol intake: never Substance use: never Substance use type: does not use Lack of Transportation: No Lack of Food: Never True Current Housing: I Have Housing Concerned About Future Housing: No Difficulty Paying Gas/Electric Bills: No Difficulty Paying for Meds: No Currently Unemployed: No Education: Decline to Answer Difficulty w/ Childcare or Family Care: No Living arrangements: retirement Additional living arrangements comments: [place] Occupation/Education: retired 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 Spiritual care concerns: No Agree to blood products: Yes Meds Home Medications and Allergies Home Medications ?Medication ?Instructions ?Recorded ?Confirmed ?Type albuterol sulfate 2.5 mg/3 mL 2.5 mg inhalation TID 01/13/23 03/03/24 History (0.083 %) solution for nebulization apixaban 5 mg tablet (Eliquis) 5 mg PO DAILY 01/13/23 03/03/24 History bisacodyl 10 mg rectal suppository 10 mg RECTAL DAILY PRN Constipation 01/13/23 03/03/24 History furosemide 40 mg tablet 40 mg PO DAILY 01/13/23 03/03/24 History levothyroxine 50 mcg tablet 50 mcg PO DAILY 01/13/23 03/03/24 History magnesium citrate (Citroma oral 296 ml PO PRN PRN Constipation 01/13/23 03/03/24 History solution) magnesium hydroxide 400 mg/5 mL 30 ml PO PRN PRN Constipation 01/13/23 03/03/24 History oral suspension (Milk of Magnesia) pantoprazole 40 mg tablet,delayed 40 mg PO DAILY 01/13/23 03/03/24 History release (Protonix) budesonide-formoterol HFA 160 2 puff inhalation BID 03/03/24 03/03/24 History mcg-4.5 mcg/actuation aerosol inhaler carvedilol 12.5 mg tablet 12.5 mg PO BID hypertension 03/03/24 03/03/24 History cholecalciferol (vitamin D3) 1,250 50,000 unit PO WEEKLY 03/03/24 03/03/24 History mcg (50,000 unit) capsule hydrocortisone 10 mg tablet 10 mg PO HS 03/03/24 03/03/24 History insulin aspart U-100 100 unit/mL 5 unit subcut ACHS 03/03/24 03/03/24 History (3 mL) subcutaneous pen metformin 500 mg tablet,extended 500 mg PO DAILY 03/03/24 03/03/24 History release 24 hr Allergies Allergy/AdvReac Type Severity Reaction Status Date / Time lisinopril Allergy Unknown Verified 03/03/24 19:29 Vital Signs Vital Signs - 24 hr 03/03/24 11:45 03/03/24 11:46 03/03/24 12:00 Temperature Pulse Rate 93 96 86 Respiratory Rate 22 H 21 H 22 H Blood Pressure 121/75 Pulse Oximetry 96 Oxygen Delivery Oxygen Flow Rate Fraction of Inspired Oxygen 03/03/24 12:01 03/03/24 12:15 03/03/24 12:16 Temperature Pulse Rate 90 80 86 Respiratory Rate 18 25 H 21 H Blood Pressure 127/105 H 126/82 Pulse Oximetry 97 Oxygen Delivery Oxygen Flow Rate Fraction of Inspired Oxygen 03/03/24 12:42 03/03/24 12:46 03/03/24 13:00 Temperature Pulse Rate 92 90 85 Respiratory Rate 17 19 17 Blood Pressure Pulse Oximetry 97 99 90 Oxygen Delivery Oxygen Flow Rate Fraction of Inspired Oxygen 03/03/24 13:30 03/03/24 13:46 03/03/24 14:07 Temperature Pulse Rate 97 79 88 Respiratory Rate 27 H 22 H 21 H Blood Pressure Pulse Oximetry 97 93 Oxygen Delivery Oxygen Flow Rate Fraction of Inspired Oxygen 03/03/24 14:15 03/03/24 17:00 03/03/24 19:38 Temperature 97.7 F Pulse Rate 99 84 Respiratory Rate 29 H 16 18 Blood Pressure 126/75 Pulse Oximetry 98 98 Oxygen Delivery Nasal Cannula Oxygen Flow Rate 3 Fraction of Inspired Oxygen 03/03/24 20:00 03/04/24 03:45 03/04/24 07:41 Temperature 97.7 F Pulse Rate 84 76 Respiratory Rate 18 18 Blood Pressure 105/64 Pulse Oximetry 98 97 97 Oxygen Delivery Nasal Cannula Nasal Cannula Oxygen Flow Rate 3 3 Fraction of Inspired Oxygen 32 03/04/24 08:00 Temperature Pulse Rate Respiratory Rate Blood Pressure Pulse Oximetry 97 Oxygen Delivery Nasal Cannula Oxygen Flow Rate 3 Fraction of Inspired Oxygen Exam 2 Const: General: comfortable and no acute distress Nutritional Appearance: o bese Orientation/consciousness: oriented to person, No oriented to place, No oriented to time and confusion HENMT: Head: normocephalic and atraumatic Mouth: Yes moist mucous membranes Eyes: General: appearance normal, both eyes and all related structures P upils: Equal, round and reactive pupils present Neck: Neck: normal visual inspection and full ROM Resp: Effort & Inspection: no respiratory distress Auscultation: diminished lung sounds Cardio: Rate: regular rate Rhythm: regular rhythm GI: Inspection: obesity (Rounded protuberant abdomen) and no visible herniation GI Palp: Yes Soft to palpation, Yes Tenderness to palpation present (GI) (Tenderness in the right upper quadrant and right lower quadrant), No Guarding due to palpation present (GI) and No Rebound tenderness present A uscultation: Hypoactive bowel sounds present Rectal Exam: deferred Urinary Catheter: Urinary Catheter: patent and draining Skin: General skin exam: normal color Neuro: General: moves all extremities Speech: Abnormal speech present garbled Gait exam (Neuro): Unable to assess gait Extrem: General: normal to inspection and no edema Psych: Attitude: cooperative Insight: Limited insight present (Psych) J udgement: Limited judgement present (Psych) Results Labs 03/04/24 05:18 03/04/24 05:18 Labs: Abnormal lab results 03/03/24 03/03/24 03/03/24 Range/Units 10:47 11:16 15:57 WBC (4.5-10.0) K/mm3 RBC 4.26 L (4.6-6.20) M/mm3 Hgb 11.8 L (14.0-18.0) g/dL Hct 40.0 L (42.0-52.0) % MCHC 29.5 L (32-36) g/dl MPV (7.4-10.4) fl Immature Gran % (Auto) 0.6 H (0-0.5) % Neut % (Auto) 74.0 H (45.5-73.1) % Lymph % (Auto) 17.6 L (18.3-44.2) % Moca % (Auto) (2.6-8.5) % Baso % (Auto) 0.1 L (0.2-1.2) % Moca # (Auto) (0.1-0.6) K/mm3 Abs Immat Gran (auto) 0.04 H (0.00-0.031) K/mm3 Absolute Neuts (auto) (1.3-6.7) K/mm3 Chloride 89 L (98-107) mmol/L Carbon Dioxide > 40 H (22-30) mmol/L BUN 54 H D (9-20) mg/dL Creatinine 1.83 H (0.7-1.3) mg/dL Estimated GFR 36 L (59 - ) Glucose 173 H (65-110) mg/dL POC Capillary Glucose (65-105) mg/dl Hemoglobin A1c (<5.7) % Magnesium (1.6-2.3) mg/dL AST (17-59) U/L Total Creatine Kinase 25 L (55-170) U/L Albumin (3.5-5.1) g/dL Urine Color Red H (Yellow) Urine Appearance Turbid H (Clear) Urine Protein 2+ H (Negative) mg/dL Urine Glucose (UA) 2+ H (Negative) mg/dL Ur Blood (Man) 3+ H (Negative) Leukocyte Esterase Rfl 3+ H (Negative) VALERIA/UL Urine RBC >100 H (0-2) /hpf Urine WBC >100 H (0-3) /hpf Protein/Creat Ratio 2 (0-0.20) mg/mg 03/03/24 03/03/24 03/03/24 Range/Units 16:29 17:13 23:55 WBC (4.5-10.0) K/mm3 RBC (4.6-6.20) M/mm3 Hgb (14.0-18.0) g/dL Hct (42.0-52.0) % MCHC (32-36) g/dl MPV (7.4-10.4) fl Immature Gran % (Auto) (0-0.5) % Neut % (Auto) (45.5-73.1) % Lymph % (Auto) (18.3-44.2) % Moca % (Auto) (2.6-8.5) % Baso % (Auto) (0.2-1.2) % Moca # (Auto) (0.1-0.6) K/mm3 Abs Immat Gran (auto) (0.00-0.031) K/mm3 Absolute Neuts (auto) (1.3-6.7) K/mm3 Chloride (98-107) mmol/L Carbon Dioxide (22-30) mmol/L BUN (9-20) mg/dL Creatinine (0.7-1.3) mg/dL Estimated GFR (59 - ) Glucose (65-110) mg/dL POC Capillary Glucose 132 H 112 H (65-105) mg/dl Hemoglobin A1c (<5.7) % Magnesium (1.6-2.3) mg/dL AST (17-59) U/L Total Creatine Kinase (55-170) U/L Albumin (3.5-5.1) g/dL Urine Color (Yellow) Urine Appearance (Clear) Urine Protein (Negative) mg/dL Urine Glucose (UA) (Negative) mg/dL Ur Blood (Man) (Negative) Leukocyte Esterase Rfl (Negative) VALERIA/UL Urine RBC (0-2) /hpf Urine WBC (0-3) /hpf Protein/Creat Ratio 2 2.33 H (0-0.20) mg/mg 03/04/24 Range/Units 05:18 WBC 10.1 H (4.5-10.0) K/mm3 RBC 3.94 L (4.6-6.20) M/mm3 Hgb 11.0 L (14.0-18.0) g/dL Hct 38.3 L (42.0-52.0) % MCHC 28.7 L (32-36) g/dl MPV 10.7 H (7.4-10.4) fl Immature Gran % (Auto) (0-0.5) % Neut % (Auto) 74.2 H (45.5-73.1) % Lymph % (Auto) 13.6 L (18.3-44.2) % Moca % (Auto) 10.7 H (2.6-8.5) % Baso % (Auto) 0.1 L (0.2-1.2) % Moca # (Auto) 1.1 H (0.1-0.6) K/mm3 Abs Immat Gran (auto) 0.04 H (0.00-0.031) K/mm3 Absolute Neuts (auto) 7.5 H (1.3-6.7) K/mm3 Chloride 91 L (98-107) mmol/L Carbon Dioxide > 40 H (22-30) mmol/L BUN 48 H (9-20) mg/dL Creatinine 1.80 H (0.7-1.3) mg/dL Estimated GFR 37 L (59 - ) Glucose (65-110) mg/dL POC Capillary Glucose (65-105) mg/dl Hemoglobin A1c 7.5 H (<5.7) % Magnesium 2.4 H (1.6-2.3) mg/dL AST 14 L (17-59) U/L Total Creatine Kinase (55-170) U/L Albumin 3.2 L (3.5-5.1) g/dL Urine Color (Yellow) Urine Appearance (Clear) Urine Protein (Negative) mg/dL Urine Glucose (UA) (Negative) mg/dL Ur Blood (Man) (Negative) Leukocyte Esterase Rfl (Negative) VALERIA/UL Urine RBC (0-2) /hpf Urine WBC (0-3) /hpf Protein/Creat Ratio 2 (0-0.20) mg/mg Diabetes panel 03/03/24 03/04/24 Range/Units 10:47 05:18 Sodium 137 140 (137-145) mmol/L Potassium 4.9 5.0 (3.4-5.0) mmol/L Chloride 89 L 91 L (98-107) mmol/L Carbon Dioxide > 40 H > 40 H (22-30) mmol/L BUN 54 H D 48 H (9-20) mg/dL Creatinine 1.83 H 1.80 H (0.7-1.3) mg/dL Glucose 173 H 101 (65-110) mg/dL Hemoglobin A1c 7.5 H (<5.7) % Calcium 9.3 9.4 (8.4-10.2) mg/dL AST 20 14 L (17-59) U/L ALT 11 9 (6-50) U/L Alkaline Phosphatase 73 68 (38-126) U/L Total Protein 8.0 7.0 (6.3-8.2) g/dL Albumin 3.5 3.2 L (3.5-5.1) g/dL Calcium panel 03/03/24 03/04/24 Range/Units 10:47 05:18 Calcium 9.3 9.4 (8.4-10.2) mg/dL Albumin 3.5 3.2 L (3.5-5.1) g/dL Pituitary panel 03/03/24 03/04/24 Range/Units 10:47 05:18 Sodium 137 140 (137-145) mmol/L Potassium 4.9 5.0 (3.4-5.0) mmol/L Chloride 89 L 91 L (98-107) mmol/L Carbon Dioxide > 40 H > 40 H (22-30) mmol/L BUN 54 H D 48 H (9-20) mg/dL Creatinine 1.83 H 1.80 H (0.7-1.3) mg/dL Glucose 173 H 101 (65-110) mg/dL Calcium 9.3 9.4 (8.4-10.2) mg/dL Adrenal panel 03/03/24 03/04/24 Range/Units 10:47 05:18 Sodium 137 140 (137-145) mmol/L Potassium 4.9 5.0 (3.4-5.0) mmol/L Chloride 89 L 91 L (98-107) mmol/L Carbon Dioxide > 40 H > 40 H (22-30) mmol/L BUN 54 H D 48 H (9-20) mg/dL Creatinine 1.83 H 1.80 H (0.7-1.3) mg/dL Glucose 173 H 101 (65-110) mg/dL Calcium 9.3 9.4 (8.4-10.2) mg/dL Total Bilirubin 0.8 0.6 (0.2-1.3) mg/dL AST 20 14 L (17-59) U/L ALT 11 9 (6-50) U/L Alkaline Phosphatase 73 68 (38-126) U/L Total Protein 8.0 7.0 (6.3-8.2) g/dL Albumin 3.5 3.2 L (3.5-5.1) g/dL All other labs normal. Imaging Additional studies: ITS Impressions Abdomen/Pelvis CT 03/03/24 13:19 IMPRESSION: Findings consistent with gastric outlet obstruction without a discrete source identified. Urgent decompression is suggested. Additional findings suggesting infection of the bladder. Fecal stasis distending the rectum suggesting fecal impaction. Abdomen X-Ray 03/03/24 14:20 IMPRESSION: NG tube in good position. Severe gastric distention. Renal Ultrasound 03/03/24 18:02 IMPRESSION: Medical renal disease. Renal atrophy and cortical thinning confirmed in prior CT. Simple bilateral cysts noted sonographically. The smaller subcentimeter hypodensities seen in the prior CT are not visualized sonographically, but statistically most likely represent cysts. 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 Abdomen X-Ray 03/04/24 05:28 Impression: NG tube in satisfactory position.
--- NOTE | 2024-03-04 11:17 | P.PNIM_ITS ---
Progress Note: A&P Assessment and Plan (1) Gastric outlet obstruction: Code(s): K31.1 - Adult hypertrophic pyloric stenosis Status: Acute Assessment and Plan: * CT scan showed a severely distended stomach concerning for gastric outlet obstruction without obvious source identified. * Surgery was consulted and they recommend NG tube for decompression. * NPO * Upper GI series: FINDINGS: [employer] image demonstrates nasogastric tube with distal tip in proximal side port in the body of the stomach. Large amount of colonic stool which can be seen with constipation. There is prompt passage of contrast from the stomach into the proximal small bowel. There is progressive filling of the small bowel with contrast reaching the cecum between 30-45 minutes. There is a normal caliber and mucosal fold pattern throughout the small bowel. Significant residual contrast in the stomach on the 30 and 45 minute delayed images. IMPRESSION: 1. No bowel or gastric outlet obstruction. There is however significant retained contrast in the stomach on the 30 and 45 minute delayed images suggesting possible gastroparesis. * Analgesics and antiemetics are available as needed. (2) Urinary tract infection: Code(s): N39.0 - Urinary tract infection, site not specified Status: Acute Assessment and Plan: * UA showed: Urine red, turbid, protein 2+, glucose 2+, blood 3+, Leukocytes 3+, RBC >100, WBC>100, * Urine culture pending. * He has a history of urinary retention though his bladder does not look enlarged on CT scan however a Mccarty catheter has been inserted for strict I/O. * All medications will be renally dosed and nephrotoxic agents will be avoided. * Ceftriaxone 1 gram IVPB q 24. (3) Acute kidney injury: Code(s): N17.9 - Acute kidney failure, unspecified Status: Acute Assessment and Plan: * BUN 48, Creatinine 1.80, and GFR 37. * He has a history of urinary retention though his bladder does not look enlarged on CT scan however a Mccarty catheter has been inserted for strict I/O. * All medications will be renally dosed and nephrotoxic agents will be avoided. * Renal ultrasound: IMPRESSION: Medical renal disease. Renal atrophy and cortical thinning confirmed in prior CT. Simple bilateral cysts noted sonographically. The smaller subcentimeter hypodensities seen in the prior CT are not visualized sonographically, but statistically most likely represent cysts. 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 * NS @125 ml/hr. * Volume status is euvolemic though he does appear a bit dry by labs with an elevated BUN and creatinine in his serum carbon dioxide of greater than 40. * Avoid over-hydration and monitor daily weights. (4) Fecal impaction: Code(s): K56.41 - Fecal impaction Status: Acute Assessment and Plan: * 03/03/24: Abominal CT showed: IMPRESSION: Findings consistent with gastric outlet obstruction without a discrete source identified. Urgent decompression is suggested. Additional findings suggesting infection of the bladder. Fecal stasis distending the rectum suggesting fecal impaction. * NGT placed to suction. * Abdominal X-ray showed: NG tube in good position. Severe gastric distention. * Enema * Upper GI series 03/04/2024: FINDINGS: [employer] image demonstrates nasogastric tube with distal tip in proximal side port in the body of the stomach. Large amount of colonic stool which can be seen with constipation. There is prompt passage of contrast from the stomach into the proximal small bowel. There is progressive filling of the small bowel with contrast reaching the cecum between 30-45 minutes. There is a normal caliber and mucosal fold pattern throughout the small bowel. Significant residual contrast in the stomach on the 30 and 45 minute delayed images. IMPRESSION: 1. No bowel or gastric outlet obstruction. There is however significant retained contrast in the stomach on the 30 and 45 minute delayed images suggesting possible gastroparesis. * Surgery following. (5) Type 2 diabetes mellitus: Code(s): E11.9 - Type 2 diabetes mellitus without complications Status: Acute Assessment and Plan: * Sliding scale insulin, Accu-Cheks, and hypoglycemic protocol. (6) Heart failure with preserved ejection fraction: Code(s): I50.30 - Unspecified diastolic (congestive) heart failure Status: Acute Assessment and Plan: * NPO * Hold Carvedilol and Furosemide for now. (7) Atrial fibrillation: Qualifiers: Atrial fibrillation type: unspecified Qualified Code(s): I48.91 - Unspecified atrial fibrillation Code(s): I48.91 - Unspecified atrial fibrillation Status: Chronic Assessment and Plan: * Hold Apixaban for possible surgery. (8) Hypertension: Code(s): I10 - Essential (primary) hypertension Status: Acute Assessment and Plan: * Blood pressure 105/64. * Hold Carvedilol. 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 (10) Chronic obstructive pulmonary disease: Code(s): J44.9 - Chronic obstructive pulmonary disease, unspecified Status: Acute Assessment and Plan: * Continue home inhaler (11) Obstructive sleep apnea treated with BiPAP: Code(s): G47.33 - Obstructive sleep apnea (adult) (pediatric) Status: Acute Assessment and Plan: * Bipap (12) Chronic respiratory failure with hypoxia, on home oxygen therapy: Code(s): J96.11 - Chronic respiratory failure with hypoxia; Z99.81 - Dependence on supplemental oxygen Status: Acute Assessment and Plan: * 02 @[facility] with Sa02 98%. (13) Gastroesophageal reflux disease: Code(s): K21.9 - Gastro-esophageal reflux disease without esophagitis Status: Acute Assessment and Plan: * Add Pantoprazole 40 mg IVP daily. Plan Subjective Date/time seen: 03/04/24 11:17 Interval history: Patient lying in bed. Daughter at bedside. Patient reports having heartburn. Patient denies chest pain, abdominal pain, shortness of breath, nausea, or vomiting. Sitter at bedside. Review of Systems Review of Systems: All systems reviewed & are unremarkable except as noted in HPI and below Exam Const: General: comfortable and no acute distress Resp: Auscultation: diminished lung sounds Cardio: Rate: regular rate Rhythm: regular rhythm GI: GI Palp: Yes Tenderness to palpation present (GI) Other: Abdomen obese with hypoactive bowel sounds. Urinary Catheter: Urinary Catheter: patent and draining (cloudy pinkish yellow urine.) Neuro: Other: Mild right side mouth droop. Speech is slurred. Expressive aphasia. General weakness. Extrem: General: pedal edema bilaterally (Trace. ) Other: Left foot cool with 1+PP. Psych: Other: Cooperative, pleasantly confused. Objective Data Vital Signs Vital Signs: Vital Signs - 24 hr 03/03/24 11:45 03/03/24 11:46 03/03/24 12:00 Temperature Pulse Rate 93 96 86 Respiratory Rate 22 H 21 H 22 H Blood Pressure 121/75 Pulse Oximetry 96 Oxygen Delivery Oxygen Flow Rate Fraction of Inspired Oxygen 03/03/24 12:01 03/03/24 12:15 03/03/24 12:16 Temperature Pulse Rate 90 80 86 Respiratory Rate 18 25 H 21 H Blood Pressure 127/105 H 126/82 Pulse Oximetry 97 Oxygen Delivery Oxygen Flow Rate Fraction of Inspired Oxygen 03/03/24 12:42 03/03/24 12:46 03/03/24 13:00 Temperature Pulse Rate 92 90 85 Respiratory Rate 17 19 17 Blood Pressure Pulse Oximetry 97 99 90 Oxygen Delivery Oxygen Flow Rate Fraction of Inspired Oxygen 03/03/24 13:30 03/03/24 13:46 03/03/24 14:07 Temperature Pulse Rate 97 79 88 Respiratory Rate 27 H 22 H 21 H Blood Pressure Pulse Oximetry 97 93 Oxygen Delivery Oxygen Flow Rate Fraction of Inspired Oxygen 03/03/24 14:15 03/03/24 17:00 03/03/24 19:38 Temperature 97.7 F Pulse Rate 99 84 Respiratory Rate 29 H 16 18 Blood Pressure 126/75 Pulse Oximetry 98 98 Oxygen Delivery Nasal Cannula Oxygen Flow Rate 3 Fraction of Inspired Oxygen 03/03/24 20:00 03/04/24 03:45 03/04/24 07:41 Temperature 97.7 F Pulse Rate 84 76 Respiratory Rate 18 18 Blood Pressure 105/64 Pulse Oximetry 98 97 97 Oxygen Delivery Nasal Cannula Nasal Cannula Oxygen Flow Rate 3 3 Fraction of Inspired Oxygen 32 03/04/24 08:00 Temperature Pulse Rate Respiratory Rate Blood Pressure Pulse Oximetry 97 Oxygen Delivery Nasal Cannula Oxygen Flow Rate 3 Fraction of Inspired Oxygen Intake/Output Intake/Output: Intake & Output 03/01/24 03/02/24 03/03/24 03/04/24 23:59 23:59 23:59 23:59 Intake Total 50 2050 Output Total 300 950 Balance -250 1100 Meds/Results Medications: Active Medications Generic Name Dose Route Start Last Admin Trade Name Freq PRN Reason Stop Dose Admin Acetaminophen 650 mg 03/03/24 21:51 Acetaminophen 325 Mg Tablet PO Q6H PRN Mild Pain (1-3) or Fever Dextrose 12.5 gm 03/03/24 15:05 Dextrose 50% 25 Gm/50 Ml Syringe IV PUSH PRN PRN Hypoglycemia Protocol Docusate Sodium 100 mg 03/04/24 09:00 03/04/24 09:42 Docusate Sodium 100 Mg Capsule PO Not Given Q12HR LAURA Empagliflozin 5 mg 03/04/24 09:00 03/04/24 09:42 Empagliflozin 10 Mg Tablet PO Not Given DAILY LAURA Glucagon 1 mg 03/03/24 15:05 Glucagon For Inj 1 Mg Vial IM PRN PRN Hypoglycemia Protocol Glucose 15 gm 03/03/24 15:05 Glucose Oral Gel 15 Gm Of Glucse In 37.5 Gm Tube PO PRN PRN Hypoglycemia Protocol Ceftriaxone Sodium 1 gm in 50 mls @ 100 mls/hr 03/04/24 09:00 03/04/24 08:28 Rocephin 1 Gm/Ns 50 Ml IVPB Infused Q24H LAURA Infusion Sodium Chloride 1,000 mls @ 125 mls/hr 03/03/24 14:05 03/04/24 10:06 Normal Saline Iv IV CONT 125 mls/hr .Q8H LAURA Administration Dextrose 1,000 mls @ 100 mls/hr 03/03/24 15:05 Dextrose 5% 1,000 Ml IVPB PRN PRN Hypoglycemia Protocol Insulin Aspart 3 - 6 units 03/03/24 18:00 03/04/24 05:28 Insulin Aspart (*Bkc) 100 Units/Ml SUB-Q Not Given Q6HR LAURA Protocol Morphine Sulfate 2 mg 03/03/24 15:07 03/04/24 01:10 Morphine Sulfate (*Crx) 2 Mg/Ml Inj IV PUSH 2 mg Q4H PRN Administration Pain Rated 7-10 Radiology Results: ITS Impressions Abdomen/Pelvis CT 03/03/24 13:19 IMPRESSION: Findings consistent with gastric outlet obstruction without a discrete source identified. Urgent decompression is suggested. Additional findings suggesting infection of the bladder. Fecal stasis distending the rectum suggesting fecal impaction. Renal Ultrasound 03/03/24 18:02 IMPRESSION: Medical renal disease. Renal atrophy and cortical thinning confirmed in prior CT. Simple bilateral cysts noted sonographically. The smaller subcentimeter hypodensities seen in the prior CT are not visualized sonographically, but statistically most likely represent cysts. 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 Abdomen X-Ray 03/04/24 05:28 Impression: NG tube in satisfactory position. Labs Labs: Laboratory Results - last 24 hr 03/03/24 03/03/24 03/03/24 10:47 11:16 15:57 WBC RBC Hgb Hct MCV MCH MCHC RDW Plt Count MPV Immature Gran % (Auto) Neut % (Auto) Lymph % (Auto) [place] % (Auto) Eos % (Auto) Baso % (Auto) Lymph # (Auto) [place] # (Auto) Eos # (Auto) Baso # (Auto) Abs Immat Gran (auto) Absolute Neuts (auto) Absolute Nucleated RBC Nucleated RBC % Platelet Estimate Adequate Hypochromasia Ovalocytes 1+ Schistocytes None seen Sodium Potassium Chloride Carbon Dioxide Anion Gap BUN Creatinine Estim Creat Clear Calc Estimated GFR Glucose POC Capillary Glucose Hemoglobin A1c Calcium Magnesium Total Bilirubin AST ALT Alkaline Phosphatase Total Creatine Kinase 25 L Total Protein Albumin TSH (Reflex) Urine Color Red H Urine Appearance Turbid H Urine pH 7.0 Ur Specific Mutual 1.016 Urine Protein 2+ H Urine Glucose (UA) 2+ H Urine Ketones Negative Ur Blood (Man) 3+ H Urine Nitrate Negative Urine Bilirubin Negative Urine Urobilinogen 0.2 Add Ur Microanalysis Reviewed Leukocyte Esterase Rfl 3+ H Urine RBC >100 H Urine WBC >100 H Ur Squamous Epith Cells Moderate Urine Bacteria 4+ Urine Casts 6-10 Urine Eosinophils U Random Total Protein Ur Random Sodium Ur Random Potassium Urine Creatinine Protein/Creat Ratio 2 03/03/24 03/03/24 03/03/24 16:29 16:29 17:13 WBC RBC Hgb Hct MCV MCH MCHC RDW Plt Count MPV Immature Gran % (Auto) Neut % (Auto) Lymph % (Auto) [place] % (Auto) Eos % (Auto) Baso % (Auto) Lymph # (Auto) [place] # (Auto) Eos # (Auto) Baso # (Auto) Abs Immat Gran (auto) Absolute Neuts (auto) Absolute Nucleated RBC Nucleated RBC % Platelet Estimate Hypochromasia Ovalocytes Schistocytes Sodium Potassium Chloride Carbon Dioxide Anion Gap BUN Creatinine Estim Creat Clear Calc Estimated GFR Glucose POC Capillary Glucose 132 H Hemoglobin A1c Calcium Magnesium Total Bilirubin AST ALT Alkaline Phosphatase Total Creatine Kinase Total Protein Albumin TSH (Reflex) Urine Color Urine Appearance Urine pH Ur Specific Mutual Urine Protein Urine Glucose (UA) Urine Ketones Ur Blood (Man) Urine Nitrate Urine Bilirubin Urine Urobilinogen Add Ur Microanalysis Leukocyte Esterase Rfl Urine RBC Urine WBC Ur Squamous Epith Cells Urine Bacteria Urine Casts Urine Eosinophils None seen U Random Total Protein 85 Ur Random Sodium 39 Ur Random Potassium 29.9 Urine Creatinine 36.5 37.0 Protein/Creat Ratio 2 2.33 H 03/03/24 03/04/24 03/04/24 23:55 03:50 05:18 WBC 10.1 H RBC 3.94 L Hgb 11.0 L Hct 38.3 L MCV 97.2 MCH 27.9 MCHC 28.7 L RDW 14.3 Plt Count 179 MPV 10.7 H Immature Gran % (Auto) 0.4 Neut % (Auto) 74.2 H Lymph % (Auto) 13.6 L [place] % (Auto) 10.7 H Eos % (Auto) 1.0 Baso % (Auto) 0.1 L Lymph # (Auto) 1.37 [place] # (Auto) 1.1 H Eos # (Auto) 0.1 Baso # (Auto) 0.0 Abs Immat Gran (auto) 0.04 H Absolute Neuts (auto) 7.5 H Absolute Nucleated RBC 0.000 Nucleated RBC % 0.0 Platelet Estimate Adequate Hypochromasia 1+ Ovalocytes 1+ Schistocytes None seen Sodium 140 Potassium 5.0 Chloride 91 L Carbon Dioxide > 40 H Anion Gap BUN 48 H Creatinine 1.80 H Estim Creat Clear Calc 43 Estimated GFR 37 L Glucose 101 POC Capillary Glucose 112 H 105 Hemoglobin A1c 7.5 H Calcium 9.4 Magnesium 2.4 H Total Bilirubin 0.6 AST 14 L ALT 9 Alkaline Phosphatase 68 Total Creatine Kinase Total Protein 7.0 Albumin 3.2 L TSH (Reflex) 1.340 Urine Color Urine Appearance Urine pH Ur Specific Mutual Urine Protein Urine Glucose (UA) Urine Ketones Ur Blood (Man) Urine Nitrate Urine Bilirubin Urine Urobilinogen Add Ur Microanalysis Leukocyte Esterase Rfl Urine RBC Urine WBC Ur Squamous Epith Cells Urine Bacteria Urine Casts Urine Eosinophils U Random Total Protein Ur Random Sodium Ur Random Potassium Urine Creatinine Protein/Creat Ratio 2 Quality VTE Prophylaxis VTE prophylaxis: mechanical ordered
[2024-03-04 12:56] LABS: Glucose Point of Care 103 mg/dl (65-105)
[2024-03-04 18:29] LABS: Glucose Point of Care 122 mg/dl (65-105)
[2024-03-04] MEDS: FLUTICASONE/SALMETEROL 115-21 MCG INHALER 1 PUFF 2 PUFF INHALATION (21:35)
[2024-03-04] MEDS: ALBUTEROL SULFATE NEB 2.5 MG/3 ML INH INHALATION (21:35)
[2024-03-05] VITALS (11 sets, daily range): BP systolic 118–182; BP diastolic 67–76; PULSE 90–105; RESP 16–20; TEMP 36.5–37.1; O2SAT 92–97
[2024-03-05 00:18] LABS: Glucose Point of Care 119 mg/dl (65-105)
--- NOTE | 2024-03-05 01:43 | PC.NURSE ---
Pt pulled out his NG tube. Pt firmly stated: it's staying out, I want some water. Pt has been demanding water all night. This RN re-educated pt about the importance of NG tube and what it does, as well as what might happen if we don't put it back in. Pt re-stated it's staying out . This RN called Dr Ng and explained the situation. Orders received to leave the NG tube out. Pt is to remain NPO until further evaluation.
[2024-03-05] MEDS: SODIUM CHLORIDE 0.9% IV 1,000 ML 125 ML IV CONT ×2 (05:11→11:50)
[2024-03-05 05:42] LABS: Glucose Point of Care 121 mg/dl (65-105)
[2024-03-05 05:57] LABS: Basophils Percent Auto 0.2 % (0.2-1.2); Eosinophils Absolute Auto 0.1 K/mm3 (0-0.3); Eosinophils Percent Auto 0.7 % (0-4.4); Hematocrit 37.6 % (42.0-52.0); Immature Granulocyte Absolute 0.04 K/mm3 (0.00-0.031); Immature Granulocyte Percent A 0.4 % (0-0.5); Lymphocytes Absolute Auto 1.01 K/mm3 (0.9-3.2); Lymphocytes Percent Auto 10.8 % (18.3-44.2); Mean Corpuscular HGB Conc 29.3 g/dl (32-36); Mean Corpuscular Hemoglobin 28.5 pg (26-34); Mean Corpuscular Volume 97.4 fl (80-100); Mean Platelet Volume 9.6 fl (7.4-10.4); Monocytes Absolute Auto 0.7 K/mm3 (0.1-0.6); Monocytes Percent Auto 7.9 % (2.6-8.5); Neutrophils Absolute Auto 7.5 K/mm3 (1.3-6.7); Platelet Count Result 166 k/mm3 (150-375); Red Blood Count 3.86 M/mm3 (4.6-6.20); Red Cell Distribution Width 14.5 % (11.5-14.5); White Blood Count 9.3 K/mm3 (4.5-10.0)
[2024-03-05 06:17] LABS: Alanine Aminotransferase 10 U/L (6-50); Alkaline Phosphatase 70 U/L (38-126); Aspartate Amino Transferase 18 U/L (17-59); Bilirubin,Total 0.6 mg/dL (0.2-1.3); Blood Urea Nitrogen 52 mg/dL (9-20); Carbon Dioxide > 40 mmol/L (22-30); Chloride 103 mmol/L (98-107); Estimated CRCL calculation 46 ml/min; Estimated Glomerular Filt Rate 40; Glucose 118 mg/dL (65-110); Magnesium 2.5 mg/dL (1.6-2.3); Potassium 4.3 mmol/L (3.4-5.0); Sodium 150 mmol/L (137-145)
[2024-03-05 06:37] LABS: Hypochromasia 1+; Ovalocytes 1+; Platelet Estimate Adequate (Adequate); Schistocytes None Seen
[2024-03-05] MEDS: FLUTICASONE/SALMETEROL 115-21 MCG INHALER 1 PUFF 2 PUFF INHALATION ×2 (08:38→19:38)
[2024-03-05] MEDS: ALBUTEROL SULFATE NEB 2.5 MG/3 ML INH INHALATION ×3 (08:40→19:36)
[2024-03-05] MEDS: PANTOPRAZOLE SODIUM IV 40 MG VIAL IV PUSH (10:03)
[2024-03-05] MEDS: EMPAGLIFLOZIN 10 MG TABLET 5 MG PO (10:04)
[2024-03-05] MEDS: DOCUSATE SODIUM 100 MG CAPSULE PO ×2 (10:04→20:32)
[2024-03-05 10:48] LABS: Chloride Rand Ur 37 mmol/L (32-290); Chloride/Creatinine Rand Ur 97 (23-275); Creatinine Random Urine 38 mg/dL (20-320)
--- NOTE | 2024-03-05 11:18 | P.PNIM_ITS ---
Progress Note: A&P Assessment and Plan (1) Gastric outlet obstruction: Code(s): K31.1 - Adult hypertrophic pyloric stenosis Status: Acute Assessment and Plan: * CT scan showed a severely distended stomach concerning for gastric outlet obstruction without obvious source identified. * Surgery was consulted and they recommend NG tube for decompression. * Upper GI series: FINDINGS: Fitness Manager image demonstrates nasogastric tube with distal tip in proximal side port in the body of the stomach. Large amount of colonic stool which can be seen with constipation. There is prompt passage of contrast from the stomach into the proximal small bowel. There is progressive filling of the small bowel with contrast reaching the cecum between 30-45 minutes. There is a normal caliber and mucosal fold pattern throughout the small bowel. Significant residual contrast in the stomach on the 30 and 45 minute delayed images. IMPRESSION: 1. No bowel or gastric outlet obstruction. There is however significant retained contrast in the stomach on the 30 and 45 minute delayed images suggesting possible gastroparesis. * Analgesics and antiemetics are available as needed. * Patient pulled our in NG tube this morning and reported to have had 4 bowel movements. * Surgery started on full liquid diet today. (2) Urinary tract infection: Code(s): N39.0 - Urinary tract infection, site not specified Status: Acute Assessment and Plan: * UA showed: Urine red, turbid, protein 2+, glucose 2+, blood 3+, Leukocytes 3+, RBC >100, WBC>100. Urine culture negative. * Repeat UA with reflex. * He has a history of urinary retention though his bladder does not look enla rged on CT scan however a Mccarty catheter has been inserted for strict I/O. * All medications will be renally dosed and nephrotoxic agents will be avoided. * Ceftriaxone 1 gram IVPB q 24. (3) Acute kidney injury: Code(s): N17.9 - Acute kidney failure, unspecified Status: Acute Assessment and Plan: * BUN 52., Creatinine 1.67, and GFR 40. * He has a history of urinary retention though his bladder does not look enlarged on CT scan however a Mccarty catheter has been inserted for strict I/O. * All medications will be renally dosed and nephrotoxic agents will be avoided. * Renal ultrasound: IMPRESSION: Medical renal disease. Renal atrophy and cortical thinning confirmed in prior CT. Simple bilateral cysts noted sonographically. The smaller subcentimeter hypodensities seen in the prior CT are not visualized sonographically, but statistically most likely represent cysts. 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 * Volume status is euvolemic though he does appear a bit dry by labs with an elevated BUN and creatinine in his serum carbon dioxide of greater than 40. Received IV fluids, heplocked now. * Avoid over-hydration and monitor daily weights. (4) Fecal impaction: Code(s): K56.41 - Fecal impaction Status: Acute Assessment and Plan: * 03/03/24: Abominal CT showed: IMPRESSION: Findings consistent with gastric outlet obstruction without a discrete source identified. Urgent decompression is suggested. Additional findings suggesting infection of the bladder. Fecal stasis distending the rectum suggesting fecal impaction. * NGT placed to suction. * Abdominal X-ray showed: NG tube in good position. Severe gastric distention. * Enema * Upper GI series 03/04/2024: FINDINGS: Fitness Manager image demonstrates nasogastric tube with distal tip in proximal side port in the body of the stomach. Large amount of colonic stool which can be seen with constipation. There is prompt passage of contrast from the stomach into the proximal small bowel. There is progressive filling of the small bowel with contrast reaching the cecum between 30-45 minutes. There is a normal caliber and mucosal fold pattern throughout the small bowel. Significant residual contrast in the stomach on the 30 and 45 minute delayed images. IMPRESSION: 1. No bowel or gastric outlet obstruction. There is however significant retained contrast in the stomach on the 30 and 45 minute delayed images suggesting possible gastroparesis. * Surgery following. * 4 bowel movements. (5) Type 2 diabetes mellitus: Code(s): E11.9 - Type 2 diabetes mellitus without complications Status: Acute Assessment and Plan: * Sliding scale insulin, Accu-Cheks, and hypoglycemic protocol. (6) Heart failure with preserved ejection fraction: Code(s): I50.30 - Unspecified diastolic (congestive) heart failure Status: Acute Assessment and Plan: * Carvedilol and Furosemide. (7) Atrial fibrillation: Qualifiers: Atrial fibrillation type: unspecified Qualified Code(s): I48.91 - Unspecified atrial fibrillation Code(s): I48.91 - Unspecified atrial fibrillation Status: Chronic Assessment and Plan: * Hold Apixaban for possible surgery. (8) Hypertension: Code(s): I10 - Essential (primary) hypertension Status: Acute Assessment and Plan: * Blood pressure 120/67. * Hold Carvedilol. (9) Chronic anticoagulation: Code(s): Z79.01 - [facility] (current) use of anticoagulants Status: Acute Assessment and Plan: * Hold Apixaban in case patient requires surgery. (10) Chronic obstructive pulmonary disease: Code(s): J44.9 - Chronic obstructive pulmonary disease, unspecified Status: Acute Assessment and Plan: * Continue home inhaler (11) Obstructive sleep apnea treated with BiPAP: Code(s): G47.33 - Obstructive sleep apnea (adult) (pediatric) Status: Acute Assessment and Plan: * Bipap (12) Chronic respiratory failure with hypoxia, on home oxygen therapy: Code(s): J96.11 - Chronic respiratory failure with hypoxia; Z99.81 - Dependence on supplemental oxygen Status: Acute Assessment and Plan: * 02 @[facility] with Sa02 95%. (13) Gastroesophageal reflux disease: Code(s): K21.9 - Gastro-esophageal reflux disease without esophagitis Status: Acute Assessment and Plan: * Add Pantoprazole 40 mg PO daily. Plan Subjective Date/time seen: 03/05/24 11:18 Interval history: Patient sitting up in bed with daughter at bedside. Patient denies chest pain, shortness of breath, headache, dizziness, nausea, or vomiting. Patient had pulled out NG tube this morning. Reported that patient has had 4 bowel movements. Patient asking for something to drink. Review of Systems Review of Systems: All systems reviewed & are unremarkable except as noted in HPI and below Exam Const: General: comfortable and no acute distress Eyes: Sclera: sclerae normal Resp: Effort & Inspection: normal respiratory effort Auscultation: diminished lung sounds Cardio: Rate: regular rate Rhythm: regular rhythm GI: GI Palp: Yes Soft to palpation Auscultation: normal bowel sounds Other: obese Urinary Catheter: Urinary Catheter: patent and draining (lebron cloudy urine) Neuro: Speech: normal speech Extrem: General: pedal edema bilaterally (trace) Psych: Mental Status: mental status grossly normal Affect: normal affect Objective Data Vital Signs Vital Signs: Vital Signs - 24 hr 03/04/24 14:26 03/04/24 19:28 03/04/24 20:00 Temperature 97.5 F L 98.2 F Pulse Rate 96 99 95 Respiratory Rate 16 20 20 Blood Pressure 135/89 101/56 L Pulse Oximetry 98 91 97 Oxygen Delivery Nasal Cannula Oxygen Flow Rate 3 Fraction of Inspired Oxygen 32 03/04/24 21:36 03/04/24 21:43 03/04/24 21:51 Temperature Pulse Rate 97 97 95 Respiratory Rate 20 20 Blood Pressure Pulse Oximetry 97 Oxygen Delivery Nasal Cannula Oxygen Flow Rate 3 Fraction of Inspired Oxygen 32 03/05/24 03:45 03/05/24 08:40 03/05/24 08:40 Temperature 97.7 F Pulse Rate 98 90 Respiratory Rate 20 20 Blood Pressure 120/67 Pulse Oximetry 97 92 Oxygen Delivery Nasal Cannula Oxygen Flow Rate 3 Fraction of Inspired Oxygen 03/05/24 08:53 03/05/24 10:23 Temperature Pulse Rate 93 Respiratory Rate 20 Blood Pressure Pulse Oximetry 94 Oxygen Delivery Nasal Cannula Oxygen Flow Rate 3 Fraction of Inspired Oxygen Intake/Output Intake/Output: Intake & Output 03/02/24 03/03/24 03/04/24 03/05/24 23:59 23:59 23:59 23:59 Intake Total 50 3050 1000 Output Total 300 2600 550 Balance -250 450 450 Meds/Results Medications: Active Medications Generic Name Dose Route Start Last Admin Trade Name Freq PRN Reason Stop Dose Admin Acetaminophen 650 mg 03/03/24 21:51 Acetaminophen 325 Mg Tablet PO Q6H PRN Mild Pain (1-3) or Fever Albuterol 2.5 mg 03/04/24 20:45 03/05/24 08:40 Albuterol Sulfate Neb 2.5 Mg/3 Ml Inh INHALATION 2.5 mg TIDRT LAURA Administration Bisacodyl 10 mg 03/04/24 14:32 Bisacodyl 10 Mg Suppository RECTAL DAILY PRN Constipation Dextrose 12.5 gm 03/03/24 15:05 Dextrose 50% 25 Gm/50 Ml Syringe IV PUSH PRN PRN Hypoglycemia Protocol Docusate Sodium 100 mg 03/04/24 09:00 03/05/24 10:04 Docusate Sodium 100 Mg Capsule PO 100 mg Q12HR LAURA Administration Empagliflozin 5 mg 03/04/24 09:00 03/05/24 10:04 Empagliflozin 10 Mg Tablet PO 5 mg DAILY LAURA Administration Glucagon 1 mg 03/03/24 15:05 Glucagon For Inj 1 Mg Vial IM PRN PRN Hypoglycemia Protocol Glucose 15 gm 03/03/24 15:05 Glucose Oral Gel 15 Gm Of Glucse In 37.5 Gm Tube PO PRN PRN Hypoglycemia Protocol Ceftriaxone Sodium 1 gm in 50 mls @ 100 mls/hr 03/04/24 09:00 03/05/24 10:03 Rocephin 1 Gm/Ns 50 Ml IVPB 100 mls/hr Q24H LAURA Administration Dextrose 1,000 mls @ 100 mls/hr 03/03/24 15:05 Dextrose 5% 1,000 Ml IVPB PRN PRN Hypoglycemia Protocol Sodium Chloride 1,000 mls @ 75 mls/hr 03/05/24 07:10 Sodium Chloride 0.45% IV CONT .[id number] [facility] Insulin Aspart 3 - 6 units 03/03/24 18:00 03/05/24 05:11 Insulin Aspart (*Bkc) 100 Units/Ml SUB-Q Not Given Q6HR [facility] Protocol Morphine Sulfate 2 mg 03/03/24 15:07 03/04/24 21:34 Morphine Sulfate (*Crx) 2 Mg/Ml Inj IV PUSH 2 mg Q4H PRN Administration Pain Rated 7-10 Pantoprazole Sodium 40 mg 03/05/24 09:00 03/05/24 10:03 Pantoprazole Sodium Iv 40 Mg Vial IV PUSH 40 mg QAM LAURA Administration Fluticasone/Salmeterol 2 puff 03/04/24 20:00 03/05/24 08:38 Fluticasone/Salmeterol 115-21 Mcg Inhaler 1 Puff INHALATION 2 puff Q12HRT LAURA Administration Radiology Results: ITS Impressions Abdomen/Pelvis CT 03/03/24 13:19 IMPRESSION: Findings consistent with gastric outlet obstruction without a discrete source identified. Urgent decompression is suggested. Additional findings suggesting infection of the bladder. Fecal stasis distending the rectum suggesting fecal impaction. Renal Ultrasound 03/03/24 18:02 IMPRESSION: Medical renal disease. Renal atrophy and cortical thinning confirmed in prior CT. Simple bilateral cysts noted sonographically. The smaller subcentimeter hypodensities seen in the prior CT are not visualized sonographically, but statistically most likely represent cysts. Bilateral renal echogenicities, in c oncert with the prior CT findings likely represent calculi, staghorn morphology on the right. Abdomen X-Ray 03/04/24 05:28 Impression: NG tube in satisfactory position. Upper GI Series 03/04/24 12:55 IMPRESSION: 1. No bowel or gastric outlet obstruction. There is however significant retained contrast in the stomach on the 30 and 45 minute delayed images suggesting possible gastroparesis. Labs Labs: Laboratory Results - last 24 hr 03/03/24 03/04/24 03/04/24 16:29 12:54 18:22 WBC RBC Hgb Hct MCV MCH MCHC RDW Plt Count MPV Immature Gran % (Auto) Neut % (Auto) Lymph % (Auto) Finney % (Auto) Eos % (Auto) Baso % (Auto) Lymph # (Auto) [place] # (Auto) Eos # (Auto) Baso # (Auto) Abs Immat Gran (auto) Absolute Neuts (auto) Absolute Nucleated RBC Nucleated RBC % Platelet Estimate Hypochromasia Ovalocytes Schistocytes Sodium Potassium Chloride Carbon Dioxide Anion Gap BUN Creatinine Estim Creat Clear Calc Estimated GFR Glucose POC Capillary Glucose 103 122 H Calcium Magnesium Total Bilirubin AST ALT Alkaline Phosphatase Total Protein Albumin Ur Random Creatinine 38 Ur Random Chloride 37 U Random Chloride/Creat 97 03/04/24 03/05/24 03/05/24 23:37 03:53 05:44 WBC 9.3 RBC 3.86 L Hgb 11.0 L Hct 37.6 L MCV 97.4 MCH 28.5 MCHC 29.3 L RDW 14.5 Plt Count 166 MPV 9.6 Immature Gran % (Auto) 0.4 Neut % (Auto) 80.0 H Lymph % (Auto) 10.8 L Finney % (Auto) 7.9 Eos % (Auto) 0.7 Baso % (Auto) 0.2 Lymph # (Auto) 1.01 Finney # (Auto) 0.7 H Eos # (Auto) 0.1 Baso # (Auto) 0.0 Abs Immat Gran (auto) 0.04 H Absolute Neuts (auto) 7.5 H Absolute Nucleated RBC 0.000 Nucleated RBC % 0.0 Platelet Estimate Adequate Hypochromasia 1+ Ovalocytes 1+ Schistocytes None seen Sodium 150 H Potassium 4.3 Chloride 103 Carbon Dioxide > 40 H Anion Gap BUN 52 H Creatinine 1.67 H Estim Creat Clear Calc 46 Estimated GFR 40 L Glucose 118 H POC Capillary Glucose 119 H 121 H Calcium 9.0 Magnesium 2.5 H Total Bilirubin 0.6 AST 18 ALT 10 Alkaline Phosphatase 70 Total Protein 7.0 Albumin 3.0 L Ur Random Creatinine Ur Random Chloride U Random Chloride/Creat Quality VTE Prophylaxis VTE prophylaxis: mechanical ordered
[2024-03-05] MEDS: SODIUM CHLORIDE 0.45% 1,000 ML 75 ML IV CONT (11:49)
[2024-03-05 12:32] LABS: Glucose Point of Care 102 mg/dl (65-105)
[2024-03-05 16:09] LABS: Osmolality, Urine 410 mOsm/kg (50-1200)
[2024-03-05 16:59] LABS: Glucose Point of Care 171 mg/dl (65-105)
[2024-03-05] MEDS: carvediloL 12.5 MG TABLET PO (20:32)
[2024-03-05 21:32] LABS: Glucose Point of Care 203 mg/dl (65-105)
[2024-03-05] MEDS: INSULIN ASPART (*BKC) 100 UNITS/ML SUB-Q (21:37)
[2024-03-05 22:07] LABS: Add Urine Microscopic? YES; Appearance Urine Turbid (Clear); Bacteria Urine Rare /hpf; Bilirubin Urine Negative (Negative); Blood Urine 3+ (Negative); Color Urine Yellow (Yellow); Glucose Urine UA 3+ mg/dL (Negative); Ketones Urine Trace mg/dL (Negative); Leukocyte Esterase Ur 3+ LEU/UL (Negative); Need Manual Microscopic Reviewed; Nitrate Urine Negative (Negative); Protein Urine 2+ mg/dL (Negative); RBC Urine >100 /hpf (0-2); Specific Grav Ur 1.023 (1.001-1.035); Squamous Epithelial Cell Urine None Seen /hpf (Few); Urobilinogen Urine 0.2 mg/dL (<2.0); WBC Urine >100 /hpf (0-3)
[2024-03-06] VITALS (12 sets, daily range): BP systolic 120–143; BP diastolic 73–86; PULSE 78–99; RESP 12–20; TEMP 36.4; O2SAT 93–98
[2024-03-06] MEDS: LEVOTHYROXINE SODIUM 50 MCG TABLET PO (05:38)
[2024-03-06 05:56] LABS: Basophils Percent Auto 0.2 % (0.2-1.2); Eosinophils Absolute Auto 0.2 K/mm3 (0-0.3); Eosinophils Percent Auto 1.7 % (0-4.4); Immature Granulocyte Absolute 0.03 K/mm3 (0.00-0.031); Immature Granulocyte Percent A 0.3 % (0-0.5); Lymphocytes Percent Auto 16.5 % (18.3-44.2); Mean Corpuscular HGB Conc 28.6 g/dl (32-36); Mean Corpuscular Hemoglobin 27.7 pg (26-34); Mean Platelet Volume 9.8 fl (7.4-10.4); Monocytes Percent Auto 10.6 % (2.6-8.5); Neutrophils Absolute Auto 6.4 K/mm3 (1.3-6.7); Neutrophils Percent Auto 70.7 % (45.5-73.1); Platelet Count Result 162 k/mm3 (150-375); Red Blood Count 3.61 M/mm3 (4.6-6.20); Red Cell Distribution Width 14.7 % (11.5-14.5); White Blood Count 9.1 K/mm3 (4.5-10.0)
[2024-03-06 06:23] LABS: Alanine Aminotransferase 8 U/L (6-50); Alkaline Phosphatase 66 U/L (38-126); Aspartate Amino Transferase 15 U/L (17-59); Bilirubin,Total 0.6 mg/dL (0.2-1.3); Blood Urea Nitrogen 41 mg/dL (9-20); Calcium 9.1 mg/dL (8.4-10.2); Carbon Dioxide > 40 mmol/L (22-30); Chloride 102 mmol/L (98-107); Estimated CRCL calculation 49 ml/min; Estimated Glomerular Filt Rate 43; Glucose 108 mg/dL (65-110); Magnesium 2.5 mg/dL (1.6-2.3); Potassium 3.8 mmol/L (3.4-5.0); Sodium 144 mmol/L (137-145)
[2024-03-06 06:27] LABS: Anisocytosis 1+; Hypochromasia 1+; Platelet Estimate Adequate (Adequate); Schistocytes None Seen; Smudge Cells PRESENT
[2024-03-06 06:28] LABS: Ovalocytes 1+
--- NOTE | 2024-03-06 06:56 | P.PNIM_ITS ---
Progress Note: A&P Assessment and Plan (1) Gastric outlet obstruction: Code(s): K31.1 - Adult hypertrophic pyloric stenosis Status: Acute Assessment and Plan: - CT abdomen/pelvis: severely distended stomach concerning for gastric outlet obstruction without obvious source identified and fecal stasis distending the rectum suggesting fecal impaction - Upper GI series: No bowel or gastric outlet obstruction. There is however significant retained contrast in the stomach on the 30 and 45 minute delayed images suggesting possible gastroparesis. - Analgesics and antiemetics are available as needed. - Monitor I&Os, vital signs, neuro status and patient is a fall risk - Monitor serum electrolytes and CBC - Surgery consulted Recommend NG tube for decompression. Patient pulled our in NG tube on 03/05 and reported to have had 4 bowel movements. Started on diabetic diet today, tolerating well. (2) Fecal impaction: Code(s): K56.41 - Fecal impaction Status: Acute Assessment and Plan: - CT abdomen/pelvis: severely distended stomach concerning for gastric outlet obstruction without obvious source identified and fecal stasis distending the rectum suggesting fecal impaction - Upper GI series: No bowel or gastric outlet obstruction. There is however significant retained contrast in the stomach on the 30 and 45 minute delayed images suggesting possible gastroparesis. - s/p enema on admission - see plan above #1 gastric outlet obstruction (3) Urinary tract infection: Code(s): N39.0 - Urinary tract infection, site not specified Status: Acute Assessment and Plan: - He has a history of urinary retention though his bladder does not look enlarged on CT scan however a Mccarty catheter has been inserted for strict I/O. - UA: turbid appearance with 2+ protein, 3+ glucose, trace ketones, 3+ blood, negative nitrates, 3+ leukocytes, >100 RBC, > 100 WBC, rare bacteria. - UC obtained on 03/03: negative - Repeat UC obtained on 03/05: pending - previous micro reviewed 07/15/19: enterococcus species with resistance to ampicillin and macrobid 06/27/19: pseudomonas aeruginosa with resistance to ceftazidime - started on ceftriaxone 03/03, discontinued on 03/06 as patient is asymptomatic. (4) Acute kidney injury: Code(s): N17.9 - Acute kidney failure, unspecified Status: Acute Assessment and Plan: BUN/Cr 54/1.83 on admission. Patient has a history of CKD. - BUN/Cr 41/1.58 on am labs - Renally dose medications - Nephrotoxic agents will be avoided. - Renal ultrasound: Medical renal disease. Renal atrophy and cortical thinning confirmed in prior CT. Simple bilateral cysts noted sonographically. The smaller subcentimeter hypodensities seen in the prior CT are not visualized sonographically, but statistically most likely represent cysts. 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 (5) Atrial fibrillation: Qualifiers: Atrial fibrillation type: unspecified Qualified Code(s): I48.91 - Unspecified atrial fibrillation Code(s): I48.91 - Unspecified atrial fibrillation Status: Chronic Assessment and Plan: Chronic - Continue carvedilol 12.5 mg BID - Resumed Apixaban as no surgical intervention required - Monitor (6) Type 2 diabetes mellitus: Code(s): E11.9 - Type 2 diabetes mellitus without complications Status: Acute Assessment and Plan: - hypoglycemia protocol - POC blood glucose ACHS - home medication - insulin aspart 5 units ACHS - correct regimen ordered - mod dose TIDWM - A1C 7.5 (7) Heart failure with preserved ejection fraction: Code(s): I50.30 - Unspecified diastolic (congestive) heart failure Status: Acute Assessment and Plan: Chronic, does not appear in acute exacerbation. - Continue home medications Carvedilol 12.5 mg BID Furosemide 40 mg daily Jardiance 5 mg daily - Monitor (8) Hypertension: Code(s): I10 - Essential (primary) hypertension Status: Acute Assessment and Plan: Chronic, continue home medications - carvedilol 12.5 mg BID - lasix 40 mg daily - conitnue to monitor, blood pressures remains stable at this time (9) Chronic obstructive pulmonary disease: Code(s): J44.9 - Chronic obstructive pulmonary disease, unspecified Status: Acute Assessment and Plan: Chronic, does not appear in acute exacerbation - Continue home inhaler - Monitor (10) Obstructive sleep apnea treated with BiPAP: Code(s): G47.33 - Obstructive sleep apnea (adult) (pediatric) Status: Acute Assessment and Plan: Continue home bipap (11) Chronic respiratory failure with hypoxia, on home oxygen therapy: Code(s): J96.11 - Chronic respiratory failure with hypoxia; Z99.81 - Dependence on supplemental oxygen Status: Acute Assessment and Plan: Chronic oxygen supplementation of 3LNC secondary to COPD. - SpO2 remains stable continue home oxygen (12) Gastroesophageal reflux disease: Code(s): K21.9 - Gastro-esophageal reflux disease without esophagitis Status: Acute Assessment and Plan: Pantoprazole 40 mg PO daily. Time Spent With Patient Time with patient: 25 - 35 minutes Subjective Date/time seen: 03/06/24 06:56 Interval history: 74-year-old male with history of sclerosing mesenteritis, gastroesophageal reflux disease, stroke, cognitive impairment, atrial fibrillation on chronic anticoagulation, congestive heart failure, hypertension, hyperlipidemia, chronic kidney disease, deep venous thrombosis, chronic respiratory failure with hypoxia on oxygen, chronic obstructive pulmonary disease, obstructive sleep apnea on BiPAP, type 2 diabetes mellitus, and hypothyroidism who presented to the hospital via EMS from a local nursing facility for evaluation of abdominal pain. Patient is pleasant lying comfortably in his bed. He states he is feeling weak and tired but has no other complaints. He was advanced to a diabetic diet today by surgery and tolerated it well denying nausea/vomiting and increased abdominal pain. Patient also denies any urinary symptoms including dysuria, burning, frequency/urgency with urination. Discussed patient with ID pharm and will DC rocephin as this possible UTI is asymptomatic and has a prior negative culture on 03/03. Patient has no other complaints denying chest pain, shortness of breath and palpations. Plan to DC to [facility], medicaid pending. Review of Systems Review of Systems: All systems reviewed & are unremarkable except as noted in HPI and below Exam Narrative: AF HR 99 RR 20 Spo2 93 3L NC (baseline) BP 122/73 General: male in no acute respiratory distress who is nontoxic appearing, lying semi recumbent in bed. HEENT: Normocephalic. Atraumatic. Extraocular movement intact. Sclera clear and anicteric. No facial asymmetry. Chest: Lungs are clear to auscultation bilaterally. No wheezes or crackles. CV: Heart was regular rate and rhythm. S1/S2. No murmurs, gallops, or rubs. Abd: Abdomen was soft. Nontender. Nondistended. Positive bowel sounds. No organomegaly or masses. Ext: No clubbing, cyanosis, or edema. 2+ DP pulses bilaterally. Neuro: Patient is alert. Speech is clear. Objective Data Vital Signs Vital Signs: Vital Signs - 24 hr 03/05/24 08:40 03/05/24 08:40 03/05/24 08:53 Temperature Pulse Rate 90 93 Respiratory Rate 20 20 Blood Pressure Pulse Oximetry 92 Oxygen Delivery Nasal Cannula Oxygen Flow Rate 3 Fraction of Inspired Oxygen 03/05/24 10:23 03/05/24 11:40 03/05/24 14:00 Temperature 98.7 F Pulse Rate 105 H Respiratory Rate 18 20 Blood Pressure 182/76 H Pulse Oximetry 94 95 Oxygen Delivery Nasal Cannula BiPAP Oxygen Flow Rate 3 Fraction of Inspired Oxygen 03/05/24 19:23 03/05/24 19:36 03/05/24 19:36 Temperature 97.7 F Pulse Rate 90 94 Respiratory Rate 20 20 Blood Pressure 118/69 Pulse Oximetry 96 96 Oxygen Delivery Nasal Cannula Oxygen Flow Rate 3 Fraction of Inspired Oxygen 32 03/05/24 19:48 03/05/24 20:32 03/05/24 20:52 Temperature Pulse Rate 91 94 92 Respiratory Rate 20 16 Blood Pressure Pulse Oximetry 92 Oxygen Delivery BiPAP Oxygen Flow Rate Fraction of Inspired Oxygen 03/06/24 01:28 03/06/24 05:42 Temperature 97.5 F L Pulse Rate 80 99 Respiratory Rate 15 20 Blood Pressure 122/73 Pulse Oximetry 93 93 Oxygen Delivery BiPAP Oxygen Flow Rate Fraction of Inspired Oxygen Intake/Output Intake/Output: Intake & Output 03/03/24 03/04/24 03/05/24 03/06/24 23:59 23:59 23:59 23:59 Intake Total 50 3050 3335.0 400 Output Total 300 2600 1200 850 Balance -017 094 4017.0 -450 Meds/Results Medications: Active Medications Generic Name Dose Route Start Last Admin Trade Name Freq PRN Reason Stop Dose Admin Acetaminophen 650 mg 03/03/24 21:51 Acetaminophen 325 Mg Tablet PO Q6H PRN Mild Pain (1-3) or Fever Albuterol 2.5 mg 03/04/24 20:45 03/05/24 19:36 Albuterol Sulfate Neb 2.5 Mg/3 Ml Inh INHALATION 2.5 mg TIDRT LAURA Administration Bisacodyl 10 mg 03/04/24 14:32 Bisacodyl 10 Mg Suppository RECTAL DAILY PRN Constipation Carvedilol 12.5 mg 03/05/24 21:00 03/05/24 20:32 Carvedilol 12.5 Mg Tablet PO 12.5 mg Q12HR LAURA Administration Dextrose 12.5 gm 03/03/24 15:05 Dextrose 50% 25 Gm/50 Ml Syringe IV PUSH PRN PRN Hypoglycemia Protocol Docusate Sodium 100 mg 03/04/24 09:00 03/05/24 20:32 Docusate Sodium 100 Mg Capsule PO 100 mg Q12HR LAURA Administration Empagliflozin 5 mg 03/04/24 09:00 03/05/24 10:04 Empagliflozin 10 Mg Tablet PO 5 mg DAILY LAURA Administration Ergocalciferol 50,000 units 03/17/24 09:00 Ergocalciferol 50,000 Units Capsule PO Fraser@0900 LAURA Furosemide 40 mg 03/06/24 09:00 Furosemide 40 Mg Tablet PO DAILY LAURA Glucagon 1 mg 03/03/24 15:05 Glucagon For Inj 1 Mg Vial IM PRN PRN Hypoglycemia Protocol Glucose 15 gm 03/03/24 15:05 Glucose Oral Gel 15 Gm Of Glucse In 37.5 Gm Tube PO PRN PRN Hypoglycemia Protocol Ceftriaxone Sodium 1 gm in 50 mls @ 100 mls/hr 03/04/24 09:00 03/05/24 11:19 Rocephin 1 Gm/Ns 50 Ml IVPB Infused Q24H LAURA Infusion Dextrose 1,000 mls @ 100 mls/hr 03/03/24 15:05 Dextrose 5% 1,000 Ml IVPB PRN PRN Hypoglycemia Protocol Insulin Aspart 3 - 6 units 03/05/24 16:30 03/05/24 21:37 Insulin Aspart (*Bkc) 100 Units/Ml SUB-Q 3 units ACHS LAURA Administration Protocol Levothyroxine Sodium 50 mcg 03/06/24 06:30 03/06/24 05:38 Levothyroxine Sodium 50 Mcg Tablet PO 50 mcg DAILY@0630 LAURA Administration Magnesium Hydroxide 30 ml 03/05/24 15:16 Magnesium Hydroxide Susp 30 Ml Udc PO HS PRN Constipation Morphine Sulfate 2 mg 03/03/24 15:07 03/04/24 21:34 Morphine Sulfate (*Crx) 2 Mg/Ml Inj IV PUSH 2 mg Q4H PRN Administration Pain Rated 7-10 Pantoprazole Sodium 40 mg 03/06/24 09:00 Pantoprazole 40 Mg Tablet PO DAILY LAURA Fluticasone/Salmeterol 2 puff 03/04/24 20:00 03/05/24 19:38 Fluticasone/Salmeterol 115-21 Mcg Inhaler 1 Puff INHALATION 2 puff Q12HRT LAURA Administration Radiology Results: ITS Impressions Abdomen/Pelvis CT 03/03/24 13:19 IMPRESSION: Findings consistent with gastric outlet obstruction without a discrete source identified. Urgent decompression is suggested. Additional findings suggesting infection of the bladder. Fecal stasis distending the rectum suggesting fecal impaction. Renal Ultrasound 03/03/24 18:02 IMPRESSION: Medical renal disease. Renal atrophy and cortical thinning confirmed in prior CT. Simple bilateral cysts noted sonographically. The smaller subcentimeter hypodensities seen in the prior CT are not visualized sonographically, but statistically most likely represent cysts. 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 Abdomen X-Ray 03/04/24 05:28 Impression: NG tube in satisfactory position. Upper GI Series 03/04/24 12:55 IMPRESSION: 1. No bowel or gastric outlet obstruction. There is however significant retained contrast in the stomach on the 30 and 45 minute delayed images suggesting po ssible gastroparesis. Labs Labs: Laboratory Results - last 24 hr 03/03/24 03/03/24 03/05/24 15:57 16:29 12:16 WBC RBC Hgb Hct MCV MCH MCHC RDW Plt Count MPV Immature Gran % (Auto) Neut % (Auto) Lymph % (Auto) [place] % (Auto) Eos % (Auto) Baso % (Auto) Lymph # (Auto) [place] # (Auto) Eos # (Auto) Baso # (Auto) Abs Immat Gran (auto) Absolute Neuts (auto) Absolute Nucleated RBC Nucleated RBC % Smudge Cells Platelet Estimate Hypochromasia Anisocytosis Ovalocytes Schistocytes Sodium Potassium Chloride Carbon Dioxide Anion Gap BUN Creatinine Estim Creat Clear Calc Estimated GFR Glucose POC Capillary Glucose 102 Serum Osmolality 314 H Calcium Magnesium Total Bilirubin AST ALT Alkaline Phosphatase Total Protein Albumin Urine Color Urine Appearance Urine pH Ur Specific [place] Urine Protein Urine Glucose (UA) Urine Ketones Ur Blood (Man) Urine Nitrate Urine Bilirubin Urine Urobilinogen Add Ur Microanalysis Leukocyte Esterase Rfl Urine RBC Urine WBC Ur Squamous Epith Cells Urine Bacteria Urine Casts Urine Osmolality 410 Ur Random Creatinine 38 Ur Random Chloride 37 U Random Chloride/Creat 97 03/05/24 03/05/24 03/05/24 16:53 19:27 19:33 WBC RBC Hgb Hct MCV MCH MCHC RDW Plt Count MPV Immature Gran % (Auto) Neut % (Auto) Lymph % (Auto) [place] % (Auto) Eos % (Auto) Baso % (Auto) Lymph # (Auto) [place] # (Auto) Eos # (Auto) Baso # (Auto) Abs Immat Gran (auto) Absolute Neuts (auto) Absolute Nucleated RBC Nucleated RBC % Smudge Cells Platelet Estimate Hypochromasia Anisocytosis Ovalocytes Schistocytes Sodium Potassium Chloride Carbon Dioxide Anion Gap BUN Creatinine Estim Creat Clear Calc Estimated GFR Glucose POC Capillary Glucose 171 H 203 H Serum Osmolality Calcium Magnesium Total Bilirubin AST ALT Alkaline Phosphatase Total Protein Albumin Urine Color Yellow Urine Appearance Turbid H Urine pH 7.0 Ur Specific [place] 1.023 Urine Protein 2+ H Urine Glucose (UA) 3+ H Urine Ketones Trace H Ur Blood (Man) 3+ H Urine Nitrate Negative Urine Bilirubin Negative Urine Urobilinogen 0.2 Add Ur Microanalysis Reviewed Leukocyte Esterase Rfl 3+ H Urine RBC >100 H Urine WBC >100 H Ur Squamous Epith Cells None seen Urine Bacteria Rare Urine Casts 11-20 Urine Osmolality Ur Random Creatinine Ur Random Chloride U Random Chloride/Creat 03/06/24 05:19 WBC 9.1 RBC 3.61 L Hgb 10.0 L Hct 35.0 L MCV 97.0 MCH 27.7 MCHC 28.6 L RDW 14.7 H Plt Count 162 MPV 9.8 Immature Gran % (Auto) 0.3 Neut % (Auto) 70.7 Lymph % (Auto) 16.5 L [place] % (Auto) 10.6 H Eos % (Auto) 1.7 Baso % (Auto) 0.2 Lymph # (Auto) 1.50 [place] # (Auto) 1.0 H Eos # (Auto) 0.2 Baso # (Auto) 0.0 Abs Immat Gran (auto) 0.03 Absolute Neuts (auto) 6.4 Absolute Nucleated RBC 0.000 Nucleated RBC % 0.0 Smudge Cells Present Platelet Estimate Adequate Hypochromasia 1+ Anisocytosis 1+ Ovalocytes 1+ Schistocytes None seen Sodium 144 Potassium 3.8 Chloride 102 Carbon Dioxide > 40 H Anion Gap BUN 41 H D Creatinine 1.58 H Estim Creat Clear Calc 49 Estimated GFR 43 L Glucose 108 POC Capillary Glucose Serum Osmolality Calcium 9.1 Magnesium 2.5 H Total Bilirubin 0.6 AST 15 L ALT 8 Alkaline Phosphatase 66 Total Protein 6.0 L Albumin 3.0 L Urine Color Urine Appearance Urine pH Ur Specific [place] Urine Protein Urine Glucose (UA) Urine Ketones Ur Blood (Man) Urine Nitrate Urine Bilirubin Urine Urobilinogen Add Ur Microanalysis Leukocyte Esterase Rfl Urine RBC Urine WBC Ur Squamous Epith Cells Urine Bacteria Urine Casts Urine Osmolality Ur Random Creatinine Ur Random Chloride U Random Chloride/Creat Quality VTE Prophylaxis VTE prophylaxis: mechanical ordered
[2024-03-06 07:48] LABS: Glucose Point of Care 107 mg/dl (65-105)
[2024-03-06] MEDS: FUROSEMIDE 40 MG TABLET PO (08:14)
[2024-03-06] MEDS: DOCUSATE SODIUM 100 MG CAPSULE PO ×2 (08:15→20:31)
[2024-03-06] MEDS: carvediloL 12.5 MG TABLET PO ×2 (08:15→20:31)
[2024-03-06] MEDS: PANTOPRAZOLE 40 MG TABLET PO (08:15)
[2024-03-06] MEDS: EMPAGLIFLOZIN 10 MG TABLET 5 MG PO (08:15)
[2024-03-06] MEDS: ALBUTEROL SULFATE NEB 2.5 MG/3 ML INH INHALATION ×3 (08:16→21:07)
[2024-03-06] MEDS: FLUTICASONE/SALMETEROL 115-21 MCG INHALER 1 PUFF 2 PUFF INHALATION ×2 (08:16→21:08)
--- NOTE | 2024-03-06 10:02 | PM.PNGS ---
Progress Note: A&P Assessment and Plan (1) Gastric outlet obstruction: Code(s): K31.1 - Adult hypertrophic pyloric stenosis Status: Acute Assessment and Plan: Upper GI small bowel series showed no gastric outlet obstruction. His stomach did have delayed emptying suggestive of possible gastroparesis. We are trying to avoid any Reglan due to potential extrapyramidal side effects given his neurological history. He has been moving his bowels and is tolerating a full liquid diet. We will try advancing him to a solid diet today. If he is able to tolerate his diet, then he can be discharged from our standpoint. If he has any further issues with gastroparesis, then we would recommend GI consultation. No indication for surgical intervention at this time. We will sign off. Call with surgical questions or concerns. (2) Fecal impaction: Code(s): K56.41 - Fecal impaction Status: Acute Assessment and Plan: Resolved. He has had multiple bowel movements following the water-soluble contrast study. 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) use of anticoagulants Status: Acute Assessment and Plan: Okay to resume anticoagulation from a surgical standpoint (6) Type 2 diabetes mellitus: Code(s): E11.9 - Type 2 diabetes mellitus without complications Status: Acute (7) Morbid obesity: Code(s): E66.01 - Morbid (severe) obesity due to excess calories Status: Acute (8) Chronic kidney disease: Code(s): N18.9 - Chronic kidney disease, unspecified Status: Acute (9) Chronic respiratory failure with hypoxia, on home oxygen therapy: Code(s): J96.11 - Chronic respiratory failure with hypoxia; Z99.81 - Dependence on supplemental oxygen Status: Acute (10) Obstructive sleep apnea treated with BiPAP: Code(s): G47.33 - Obstructive sleep apnea (adult) (pediatric) Status: Acute (11) Heart failure with preserved ejection fraction: Code(s): I50.30 - Unspecified diastolic (congestive) heart failure Status: Acute (12) Hypertension: Code(s): I10 - Essential (primary) hypertension Status: Acute Plan I have discussed the patient's case and plan of care with Dr. Montanez. Subjective Subjective Date/Time Seen: 03/06/24 10:02 Patient reports: no new complaints and bowel movement Interval history: Patient with no specific complaints today. He had a full liquid diet for breakfast and reports tolerating this well. He has had over 5 bowel movements in the last 24 hours. He is passing flatus today. No abdominal pain, nausea, or vomiting. Exam Const: General: comfortable and no acute distress Orientation/consciousness: patient oriented x3 GI: Inspection: non-distended GI Palp: Yes Soft to palpation, No Tenderness to palpation present (GI), No Guarding due to palpation present (GI) and No Rebound tenderness present Auscultation: normal bowel sounds Objective Data Vital Signs Vital Signs: Vital Signs - 24 hr 03/05/24 10:23 03/05/24 11:40 03/05/24 14:00 Temperature 98.7 F Pulse Rate 105 H Respiratory Rate 18 20 Blood Pressure 182/76 H Pulse Oximetry 94 95 Oxygen Delivery Nasal Cannula BiPAP Oxygen Flow Rate 3 Fraction of Inspired Oxygen 03/05/24 19:23 03/05/24 19:36 03/05/24 19:36 Temperature 97.7 F Pulse Rate 90 94 Respiratory Rate 20 20 Blood Pressure 118/69 Pulse Oximetry 96 96 Oxygen Delivery Nasal Cannula Oxygen Flow Rate 3 Fraction of Inspired Oxygen 32 03/05/24 19:48 03/05/24 20:32 03/05/24 20:52 Temperature Pulse Rate 91 94 92 Respiratory Rate 20 16 Blood Pressure Pulse Oximetry 92 Oxygen Delivery BiPAP Oxygen Flow Rate Fraction of Inspired Oxygen 03/06/24 01:28 03/06/24 05:42 03/06/24 08:15 Temperature 97.5 F L Pulse Rate 80 99 99 Respiratory Rate 15 20 Blood Pressure 122/73 Pulse Oximetry 93 93 Oxygen Delivery BiPAP Oxygen Flow Rate Fraction of Inspired Oxygen 03/06/24 08:15 03/06/24 08:17 03/06/24 08:17 Temperature Pulse Rate 78 Respiratory Rate 12 Blood Pressure Pulse Oximetry 97 97 Oxygen Delivery Nasal Cannula Nasal Cannula Oxygen Flow Rate 3 3 Fraction of Inspired Oxygen 03/06/24 08:26 Temperature Pulse Rate Respiratory Rate 18 Blood Pressure Pulse Oximetry Oxygen Delivery Oxygen Flow Rate Fraction of Inspired Oxygen Intake/Output Intake/Output: Intake & Output 03/03/24 03/04/24 03/05/24 03/06/24 23:59 23:59 23:59 23:59 Intake Total 50 3050 3335.0 400 Output Total 300 2600 1200 850 Balance -615 453 8419.0 -450 Meds/Results Medications: Active Medications Generic Name Dose Route Start Last Admin Trade Name Freq PRN Reason Stop Dose Admin Acetaminophen 650 mg 03/03/24 21:51 Acetaminophen 325 Mg Tablet PO Q6H PRN Mild Pain (1-3) or Fever Albuterol 2.5 mg 03/04/24 20:45 03/06/24 08:16 Albuterol Sulfate Neb 2.5 Mg/3 Ml Inh INHALATION 2.5 mg TIDRT LAURA Administration Bisacodyl 10 mg 03/04/24 14:32 Bisacodyl 10 Mg Suppository RECTAL DAILY PRN Constipation Carvedilol 12.5 mg 03/05/24 21:00 03/06/24 08:15 Carvedilol 12.5 Mg Tablet PO 12.5 mg Q12HR LAURA Administration Dextrose 12.5 gm 03/03/24 15:05 Dextrose 50% 25 Gm/50 Ml Syringe IV PUSH PRN PRN Hypoglycemia Protocol Docusate Sodium 100 mg 03/04/24 09:00 03/06/24 08:15 Docusate Sodium 100 Mg Capsule PO 100 mg Q12HR LAURA Administration Empagliflozin 5 mg 03/04/24 09:00 03/06/24 08:15 Empagliflozin 10 Mg Tablet PO 5 mg DAILY LAURA Administration Ergocalciferol 50,000 units 03/17/24 09:00 Ergocalciferol 50,000 Units Capsule PO Fraser@0900 LAURA Furosemide 40 mg 03/06/24 09:00 03/06/24 08:14 Furosemide 40 Mg Tablet PO 40 mg DAILY LAURA Administration Glucagon 1 mg 03/03/24 15:05 Glucagon For Inj 1 Mg Vial IM PRN PRN Hypoglycemia Protocol Glucose 15 gm 03/03/24 15:05 Glucose Oral Gel 15 Gm Of Glucse In 37.5 Gm Tube PO PRN PRN Hypoglycemia Protocol Ceftriaxone Sodium 1 gm in 50 mls @ 100 mls/hr 03/04/24 09:00 03/06/24 08:12 Rocephin 1 Gm/Ns 50 Ml IVPB 100 mls/hr Q24H LAURA Administration Dextrose 1,000 mls @ 100 mls/hr 03/03/24 15:05 Dextrose 5% 1,000 Ml IVPB PRN PRN Hypoglycemia Protocol Insulin Aspart 3 - 6 units 03/05/24 16:30 03/06/24 07:53 Insulin Aspart (*Bkc) 100 Units/Ml SUB-Q Not Given ACHS LAURA Protocol Levothyroxine Sodium 50 mcg 03/06/24 06:30 03/06/24 05:38 Levothyroxine Sodium 50 Mcg Tablet PO 50 mcg DAILY@0630 LAURA Administration Magnesium Hydroxide 30 ml 03/05/24 15:16 Magnesium Hydroxide Susp 30 Ml Udc PO HS PRN Constipation Morphine Sulfate 2 mg 03/03/24 15:07 03/04/24 21:34 Morphine Sulfate (*Crx) 2 Mg/Ml Inj IV PUSH 2 mg Q4H PRN Administration Pain Rated 7-10 Pantoprazole Sodium 40 mg 03/06/24 09:00 03/06/24 08:15 Pantoprazole 40 Mg Tablet PO 40 mg DAILY LAURA Administration Fluticasone/Salmeterol 2 puff 03/04/24 20:00 03/06/24 08:16 Fluticasone/Salmeterol 115-21 Mcg Inhaler 1 Puff INHALATION 2 puff Q12HRT LAURA Administration Radiology Results: ITS Impressions Abdomen/Pelvis CT 03/03/24 13:19 IMPRESSION: Findings consistent with gastric outlet obstruction without a discrete source identified. Urgent decompression is suggested. Additional findings suggesting infection of the bladder. Fecal stasis distending the rectum suggesting fecal impaction. Renal Ultrasound 03/03/24 18:02 IMPRESSION: Medical renal disease. Renal atrophy and cortical thinning confirmed in prior CT. Simple bilateral cysts noted sonographically. The smaller subcentimeter hypodensities seen in the prior CT are not visualized sonographically, but statistically most likely represent cysts. 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 Abdomen X-Ray 03/04/24 05:28 Impression: NG tube in satisfactory position. Upper GI Series 03/04/24 12:55 IMPRESSION: 1. No bowel or gastric outlet obstruction. There is however significant retained contrast in the stomach on the 30 and 45 minute delayed images suggesting possible gastroparesis. Labs Labs: Laboratory Results - last 24 hr 03/03/24 03/03/24 03/05/24 15:57 16:29 12:16 WBC RBC Hgb Hct MCV MCH MCHC RDW Plt Count MPV Immature Gran % (Auto) Neut % (Auto) Lymph % (Auto) [place] % (Auto) Eos % (Auto) Baso % (Auto) Lymph # (Auto) [place] # (Auto) Eos # (Auto) Baso # (Auto) Abs Immat Gran (auto) Absolute Neuts (auto) Absolute Nucleated RBC Nucleated RBC % Smudge Cells Platelet Estimate Hypochromasia Anisocytosis Ovalocytes Schistocytes Sodium Potassium Chloride Carbon Dioxide Anion Gap BUN Creatinine Estim Creat Clear Calc Estimated GFR Glucose POC Capillary Glucose 102 Serum Osmolality 314 H Calcium Magnesium Total Bilirubin AST ALT Alkaline Phosphatase Total Protein Albumin Urine Color Urine Appearance Urine pH Ur Specific [place] Urine Protein Urine Glucose (UA) Urine Ketones Ur Blood (Man) Urine Nitrate Urine Bilirubin Urine Urobilinogen Add Ur Microanalysis Leukocyte Esterase Rfl Urine RBC Urine WBC Ur Squamous Epith Cells Urine Bacteria Urine Casts Urine Osmolality 410 Ur Random Creatinine 38 Ur Random Chloride 37 U Random Chloride/Creat 97 03/05/24 03/05/24 03/05/24 16:53 19:27 19:33 WBC RBC Hgb Hct MCV MCH MCHC RDW Plt Count MPV Immature Gran % (Auto) Neut % (Auto) Lymph % (Auto) [place] % (Auto) Eos % (Auto) Baso % (Auto) Lymph # (Auto) [place] # (Auto) Eos # (Auto) Baso # (Auto) Abs Immat Gran (auto) Absolute Neuts (auto) Absolute Nucleated RBC Nucleated RBC % Smudge Cells Platelet Estimate Hypochromasia Anisocytosis Ovalocytes Schistocytes Sodium Potassium Chloride Carbon Dioxide Anion Gap BUN Creatinine Estim Creat Clear Calc Estimated GFR Glucose POC Capillary Glucose 171 H 203 H Serum Osmolality Calcium Magnesium Total Bilirubin AST ALT Alkaline Phosphatase Total Protein Albumin Urine Color Yellow Urine Appearance Turbid H Urine pH 7.0 Ur Specific [place] 1.023 Urine Protein 2+ H Urine Glucose (UA) 3+ H Urine Ketones Trace H Ur Blood (Man) 3+ H Urine Nitrate Negative Urine Bilirubin Negative Urine Urobilinogen 0.2 Add Ur Microanalysis Reviewed Leukocyte Esterase Rfl 3+ H Urine RBC >100 H Urine WBC >100 H Ur Squamous Epith Cells None seen Urine Bacteria Rare Urine Casts 11-20 Urine Osmolality Ur Random Creatinine Ur Random Chloride U Random Chloride/Creat 03/06/24 03/06/24 05:19 07:42 WBC 9.1 RBC 3.61 L Hgb 10.0 L Hct 35.0 L MCV 97.0 MCH 27.7 MCHC 28.6 L RDW 14.7 H Plt Count 162 MPV 9.8 Immature Gran % (Auto) 0.3 Neut % (Auto) 70.7 Lymph % (Auto) 16.5 L [place] % (Auto) 10.6 H Eos % (Auto) 1.7 Baso % (Auto) 0.2 Lymph # (Auto) 1.50 [place] # (Auto) 1.0 H Eos # (Auto) 0.2 Baso # (Auto) 0.0 Abs Immat Gran (auto) 0.03 Absolute Neuts (auto) 6.4 Absolute Nucleated RBC 0.000 Nucleated RBC % 0.0 Smudge Cells Present Platelet Estimate Adequate Hypochromasia 1+ Anisocytosis 1+ Ovalocytes 1+ Schistocytes None seen Sodium 144 Potassium 3.8 Chloride 102 Carbon Dioxide > 40 H Anion Gap BUN 41 H D Creatinine 1.58 H Estim Creat Clear Calc 49 Estimated GFR 43 L Glucose 108 POC Capillary Glucose 107 H Serum Osmolality Calcium 9.1 Magnesium 2.5 H Total Bilirubin 0.6 AST 15 L ALT 8 Alkaline Phosphatase 66 Total Protein 6.0 L Albumin 3.0 L Urine Color Urine Appearance Urine pH Ur Specific [place] Urine Protein Urine Glucose (UA) Urine Ketones Ur Blood (Man) Urine Nitrate Urine Bilirubin Urine Urobilinogen Add Ur Microanalysis Leukocyte Esterase Rfl Urine RBC Urine WBC Ur Squamous Epith Cells Urine Bacteria Urine Casts Urine Osmolality Ur Random Creatinine Ur Random Chloride U Random Chloride/Creat
[2024-03-06 12:29] LABS: Glucose Point of Care 164 mg/dl (65-105)
[2024-03-06] MEDS: APIXABAN 5 MG TABLET PO (16:36)
[2024-03-06 16:58] LABS: Glucose Point of Care 157 mg/dl (65-105)
[2024-03-06 21:27] LABS: Glucose Point of Care 174 mg/dl (65-105)
[2024-03-07] VITALS (7 sets, daily range): BP systolic 124–148; BP diastolic 69–79; PULSE 61–84; RESP 16–18; TEMP 36.2–36.6; O2SAT 96–100
[2024-03-07] MEDS: LEVOTHYROXINE SODIUM 50 MCG TABLET PO (05:33)
[2024-03-07 05:56] LABS: Glucose Point of Care 124 mg/dl (65-105)
[2024-03-07 06:22] LABS: Basophils Percent Auto 0.2 % (0.2-1.2); Eosinophils Absolute Auto 0.2 K/mm3 (0-0.3); Eosinophils Percent Auto 1.5 % (0-4.4); Hematocrit 34.8 % (42.0-52.0); Immature Granulocyte Absolute 0.06 K/mm3 (0.00-0.031); Immature Granulocyte Percent A 0.6 % (0-0.5); Lymphocytes Absolute Auto 1.51 K/mm3 (0.9-3.2); Lymphocytes Percent Auto 14.8 % (18.3-44.2); Mean Corpuscular HGB Conc 28.7 g/dl (32-36); Mean Corpuscular Hemoglobin 27.3 pg (26-34); Mean Corpuscular Volume 95.1 fl (80-100); Mean Platelet Volume 10.3 fl (7.4-10.4); Monocytes Percent Auto 9.9 % (2.6-8.5); Neutrophils Absolute Auto 7.5 K/mm3 (1.3-6.7); Platelet Count Result 160 k/mm3 (150-375); Red Blood Count 3.66 M/mm3 (4.6-6.20); Red Cell Distribution Width 14.4 % (11.5-14.5); White Blood Count 10.2 K/mm3 (4.5-10.0)
[2024-03-07 06:38] LABS: Alanine Aminotransferase 8 U/L (6-50); Alkaline Phosphatase 63 U/L (38-126); Anion Gap 2 mmol/L (4-12); Aspartate Amino Transferase 18 U/L (17-59); Bilirubin,Total 0.6 mg/dL (0.2-1.3); Blood Urea Nitrogen 36 mg/dL (9-20); Calcium 8.9 mg/dL (8.4-10.2); Carbon Dioxide 39 mmol/L (22-30); Chloride 97 mmol/L (98-107); Estimated CRCL calculation 50 ml/min; Estimated Glomerular Filt Rate 44; Glucose 122 mg/dL (65-110); Magnesium 2.1 mg/dL (1.6-2.3); Potassium 4.1 mmol/L (3.4-5.0); Sodium 138 mmol/L (137-145)
--- NOTE | 2024-03-07 06:50 | P.PNIM_ITS ---
Progress Note: A&P Assessment and Plan (1) Gastric outlet obstruction: Code(s): K31.1 - Adult hypertrophic pyloric stenosis Status: Acute Assessment and Plan: - CT abdomen/pelvis: severely distended stomach concerning for gastric outlet obstruction without obvious source identified and fecal stasis distending the rectum suggesting fecal impaction - Upper GI series: No bowel or gastric outlet obstruction. There is however significant retained contrast in the stomach on the 30 and 45 minute delayed images suggesting possible gastroparesis. - Analgesics and antiemetics are available as needed. - Monitor I&Os, vital signs, neuro status and patient is a fall risk - Monitor serum electrolytes and CBC - Surgery consulted Recommend NG tube for decompression. Patient pulled our in NG tube on 03/05 and reported to have had 4 bowel movements. Started on diabetic diet today, tolerating well. No need for further surgical follow-up or evaluation. (2) Fecal impaction: Code(s): K56.41 - Fecal impaction Status: Acute Assessment and Plan: - CT abdomen/pelvis: severely distended stomach concerning for gastric outlet obstruction without obvious source identified and fecal stasis distending the rectum suggesting fecal impaction - Upper GI series: No bowel or gastric outlet obstruction. There is however significant retained contrast in the stomach on the 30 and 45 minute delayed images suggesting possible gastroparesis. - s/p enema on admission - surgery consulted see plan above #1 gastric outlet obstruction resolved. has had multiple bowel movements following water soluble contrast study. (3) Urinary tract infection: Code(s): N39.0 - Urinary tract infection, site not specified Status: Acute Assessment and Plan: - He has a history of urinary retention though his bladder does not look enlarged on CT scan however a Mccarty catheter has been inserted for strict I/O. - UA: turbid appearance with 2+ protein, 3+ glucose, trace ketones, 3+ blood, negative nitrates, 3+ leukocytes, >100 RBC, > 100 WBC, rare bacteria. - UC obtained on 03/03: negative - Repeat UC obtained on 03/05: pending - previous micro reviewed 07/15/19: enterococcus species with resistance to ampicillin and macrobid 06/27/19: pseudomonas aeruginosa with resistance to ceftazidime - started on ceftriaxone 03/03, discontinued on 03/06 as patient is asymptomatic. (4) Acute kidney injury: Code(s): N17.9 - Acute kidney failure, unspecified Status: Acute Assessment and Plan: BUN/Cr 54/1.83 on admission. Patient has a history of CKD. - BUN/Cr 36/1.54 on am labs - Renally dose medications - Nephrotoxic agents will be avoided. - Renal ultrasound: Medical renal disease. Renal atrophy and cortical thinning confirmed in prior CT. Simple bilateral cysts noted sonographically. The smaller subcentimeter hypodensities seen in the prior CT are not visualized sonographically, but statistically most likely represent cysts. 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 (5) Atrial fibrillation: Qualifiers: Atrial fibrillation type: unspecified Qualified Code(s): I48.91 - Unspecified atrial fibrillation Code(s): I48.91 - Unspecified atrial fibrillation Status: Chronic Assessment and Plan: Chronic - Continue carvedilol 12.5 mg BID - Resumed Apixaban as no surgical intervention required - Monitor (6) Type 2 diabetes mellitus: Code(s): E11.9 - Type 2 diabetes mellitus without complications Status: Acute Assessment and Plan: - hypoglycemia protocol - POC blood glucose ACHS - home medication - insulin aspart 5 units ACHS - correct regimen ordered - mod dose TIDWM - A1C 7.5 (7) Heart failure with preserved ejection fraction: Code(s): I50.30 - Unspecified diastolic (congestive) heart failure Status: Acute Assessment and Plan: Chronic, does not appear in acute exacerbation. - Continue home medications Carvedilol 12.5 mg BID Furosemide 40 mg daily Jardiance 5 mg daily - Monitor (8) Hypertension: Code(s): I10 - Essential (primary) hypertension Status: Acute Assessment and Plan: Chronic, continue home medications - carvedilol 12.5 mg BID - lasix 40 mg daily - conitnue to monitor, blood pressures remains stable at this time (9) Chronic obstructive pulmonary disease: Code(s): J44.9 - Chronic obstructive pulmonary disease, unspecified Status: Acute Assessment and Plan: Chronic, does not appear in acute exacerbation - Continue home inhaler - Monitor (10) Obstructive sleep apnea treated with BiPAP: Code(s): G47.33 - Obstructive sleep apnea (adult) (pediatric) Status: Acute Assessment and Plan: Continue home bipap (11) Chronic respiratory failure with hypoxia, on home oxygen therapy: Code(s): J96.11 - Chronic respiratory failure with hypoxia; Z99.81 - Dependence on supplemental oxygen Status: Acute Assessment and Plan: Chronic oxygen supplementation of 3LNC secondary to COPD. - SpO2 remains stable continue home oxygen (12) Gastroesophageal reflux disease: Code(s): K21.9 - Gastro-esophageal reflux disease without esophagitis Status: Acute Assessment and Plan: Pantoprazole 40 mg PO daily. Subjective Date/time seen: 03/07/24 06:50 Interval history: 74-year-old male with history of sclerosing mesenteritis, gastroesophageal reflux disease, stroke, cognitive impairment, atrial fibrillation on chronic anticoagulation, congestive heart failure, hypertension, hyperlipidemia, chronic kidney disease, deep venous thrombosis, chronic respiratory failure with hypoxia on oxygen, chronic obstructive pulmonary disease, obstructive sleep apnea on BiPAP, type 2 diabetes mellitus, and hypothyroidism who presented to the [facility] via EMS from a local nursing facility for evaluation of abdominal pain. Patient is pleasant sitting Review of Systems Review of Systems: All systems reviewed & are unremarkable except as noted in HPI and below Exam Narrative: AF HR General: male in no acute respiratory distress who is nontoxic appearing, lying semi recumbent in bed. HEENT: Normocephalic. Atraumatic. Extraocular movement intact. Sclera clear and anicteric. No facial asymmetry. Chest: Lungs are clear to auscultation bilaterally. No wheezes or crackles. CV: Heart was regular rate and rhythm. S1/S2. No murmurs, gallops, or rubs. Abd: Abdomen was soft. Nontender. Nondistended. Positive bowel sounds. No organomegaly or masses. Ext: No clubbing, cyanosis, or edema. 2+ DP pulses bilaterally. Neuro: Patient is alert. Speech is clear. Objective Data Vital Signs Vital Signs: Vital Signs - 24 hr 03/06/24 08:15 03/06/24 08:15 03/06/24 08:17 Temperature Pulse Rate 99 Respiratory Rate Blood Pressure Pulse Oximetry 97 97 Oxygen Delivery Nasal Cannula Nasal Cannula Oxygen Flow Rate 3 3 03/06/24 08:17 03/06/24 08:26 03/06/24 14:49 Temperature 97.6 F Pulse Rate 78 89 Respiratory Rate 12 18 20 Blood Pressure 120/86 Pulse Oximetry 98 Oxygen Delivery Oxygen Flow Rate 03/06/24 15:00 03/06/24 15:10 03/06/24 20:00 Temperature Pulse Rate 82 84 Respiratory Rate 18 18 Blood Pressure Pulse Oximetry 98 Oxygen Delivery Nasal Cannula Oxygen Flow Rate 3 03/06/24 20:31 03/06/24 20:31 03/06/24 21:09 Temperature 97.5 F L Pulse Rate 97 94 Respiratory Rate 16 Blood Pressure 143/86 H Pulse Oximetry 97 97 Oxygen Delivery Nasal Cannula Oxygen Flow Rate 3 03/06/24 21:09 03/06/24 21:15 03/07/24 05:35 Temperature 97.9 F Pulse Rate 87 90 61 Respiratory Rate 16 16 18 Blood Pressure 148/79 H Pulse Oximetry 97 Oxygen Delivery Oxygen Flow Rate Intake/Output Intake/Output: Intake & Output 03/04/24 03/05/24 03/06/24 03/07/24 23:59 23:59 23:59 23:59 Intake Total 3050 3335.0 1500 900 Output Total 2600 1200 1700 2100 Balance 450 2135.0 -200 -1200 Meds/Results Medications: Active Medications Generic Name Dose Route Start Last Admin Trade Name Freq PRN Reason Stop Dose Admin Acetaminophen 650 mg 03/03/24 21:51 Acetaminophen 325 Mg Tablet PO Q6H PRN Mild Pain (1-3) or Fever Albuterol 2.5 mg 03/04/24 20:45 03/06/24 21:07 Albuterol Sulfate Neb 2.5 Mg/3 Ml Inh INHALATION 2.5 mg TIDRT LAURA Administration Apixaban 5 mg 03/06/24 14:40 03/06/24 16:36 Apixaban 5 Mg Tablet PO 5 mg DAILY LAURA Administration Bisacodyl 10 mg 03/04/24 14:32 Bisacodyl 10 Mg Suppository RECTAL DAILY PRN Constipation Carvedilol 12.5 mg 03/05/24 21:00 03/06/24 20:31 Carvedilol 12.5 Mg Tablet PO 12.5 mg Q12HR LAURA Administration Dextrose 12.5 gm 03/03/24 15:05 Dextrose 50% 25 Gm/50 Ml Syringe IV PUSH PRN PRN Hypoglycemia Protocol Docusate Sodium 100 mg 03/04/24 09:00 03/06/24 20:31 Docusate Sodium 100 Mg Capsule PO 100 mg Q12HR LAURA Administration Empagliflozin 5 mg 03/04/24 09:00 03/06/24 08:15 Empagliflozin 10 Mg Tablet PO 5 mg DAILY LAURA Administration Ergocalciferol 50,000 units 03/17/24 09:00 Ergocalciferol 50,000 Units Capsule PO Fraser@0900 LAURA Furosemide 40 mg 03/06/24 09:00 03/06/24 08:14 Furosemide 40 Mg Tablet PO 40 mg DAILY LAURA Administration Glucagon 1 mg 03/03/24 15:05 Glucagon For Inj 1 Mg Vial IM PRN PRN Hypoglycemia Protocol Glucose 15 gm 03/03/24 15:05 Glucose Oral Gel 15 Gm Of Glucse In 37.5 Gm Tube PO PRN PRN Hypoglycemia Protocol Dextrose 1,000 mls @ 100 mls/hr 03/03/24 15:05 Dextrose 5% 1,000 Ml IVPB PRN PRN Hypoglycemia Protocol Insulin Aspart 3 - 6 units 03/05/24 16:30 03/07/24 05:33 Insulin Aspart (*Bkc) 100 Units/Ml SUB-Q Not Given ACHS [facility] Protocol Levothyroxine Sodium 50 mcg 03/06/24 06:30 03/07/24 05:33 Levothyroxine Sodium 50 Mcg Tablet PO 50 mcg DAILY@0630 LAURA Administration Magnesium Hydroxide 30 ml 03/05/24 15:16 Magnesium Hydroxide Susp 30 Ml Udc PO HS PRN Constipation Morphine Sulfate 2 mg 03/03/24 15:07 03/04/24 21:34 Morphine Sulfate (*Crx) 2 Mg/Ml Inj IV PUSH 2 mg Q4H PRN Administration Pain Rated 7-10 Pantoprazole Sodium 40 mg 03/06/24 09:00 03/06/24 08:15 Pantoprazole 40 Mg Tablet PO 40 mg DAILY LAURA Administration Fluticasone/Salmeterol 2 puff 03/04/24 20:00 03/06/24 21:08 Fluticasone/Salmeterol 115-21 Mcg Inhaler 1 Puff INHALATION 2 puff Q12HRT LAURA Administration Radiology Results: ITS Impressions Abdomen/Pelvis CT 03/03/24 13:19 IMPRESSION: Findings consistent with gastric outlet obstruction without a discrete source identified. Urgent decompression is suggested. Additional findings suggesting infection of the bladder. Fecal stasis distending the rectum suggesting fecal impaction. Renal Ultrasound 03/03/24 18:02 IMPRESSION: Medical renal disease. Renal atrophy and cortical thinning confirmed in prior CT. Simple bilateral cysts noted sonographically. The smaller subcentimeter hypodensities seen in the prior CT are not visualized sonographically, but statistically most likely represent cysts. 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 Abdomen X-Ray 03/04/24 05:28 Impression: NG tube in satisfactory position. Upper GI Series 03/04/24 12:55 IMPRESSION: 1. No bowel or gastric outlet obstruction. There is however significant retained contrast in the stomach on the 30 and 45 minute delayed images suggesting possible gastroparesis. Labs Labs: Laboratory Results - last 24 hr 03/06/24 03/06/24 03/06/24 07:42 12:24 16:37 Sodium Potassium Chloride Carbon Dioxide Anion Gap BUN Creatinine Estim Creat Clear Calc Estimated GFR Glucose POC Capillary Glucose 107 H 164 H 157 H Calcium Magnesium Total Bilirubin AST ALT Alkaline Phosphatase Total Protein Albumin 03/06/24 03/07/24 03/07/24 20:31 05:30 05:31 Sodium 138 Potassium 4.1 Chloride 97 L Carbon Dioxide 39 H Anion Gap 2 L BUN 36 H Creatinine 1.54 H Estim Creat Clear Calc 50 Estimated GFR 44 L Glucose 122 H POC Capillary Glucose 174 H 124 H Calcium 8.9 Magnesium 2.1 Total Bilirubin 0.6 AST 18 ALT 8 Alkaline Phosphatase 63 Total Protein 6.0 L Albumin 3.0 L Quality VTE Prophylaxis VTE prophylaxis: mechanical ordered
[2024-03-07 07:14] LABS: Platelet Estimate Adequate (Adequate)
[2024-03-07 07:15] LABS: Anisocytosis 1+; Ovalocytes 1+; Schistocytes None Seen
[2024-03-07 08:04] LABS: Glucose Point of Care 114 mg/dl (65-105)
[2024-03-07] MEDS: ALBUTEROL SULFATE NEB 2.5 MG/3 ML INH INHALATION ×2 (08:07→13:34)
[2024-03-07] MEDS: FLUTICASONE/SALMETEROL 115-21 MCG INHALER 1 PUFF 2 PUFF INHALATION (08:07)
[2024-03-07] MEDS: DOCUSATE SODIUM 100 MG CAPSULE PO (08:35)
[2024-03-07] MEDS: EMPAGLIFLOZIN 10 MG TABLET 5 MG PO (08:35)
[2024-03-07] MEDS: FUROSEMIDE 40 MG TABLET PO (08:35)
[2024-03-07] MEDS: carvediloL 12.5 MG TABLET PO (08:35)
[2024-03-07] MEDS: APIXABAN 5 MG TABLET PO (08:35)
[2024-03-07] MEDS: PANTOPRAZOLE 40 MG TABLET PO (08:35)
--- NOTE | 2024-03-07 10:02 | PCSTNOTE ---
Please refer to the Bedside Swallow Evaluation in the EMR. Please note, silent aspiration cannot be ruled out at bedside. The above pt, admitted from a nursing facility with h/o CVA and cognitive impairment, was seen for a bedside swallow evaluation. He was positioned upright in the bed and reported he had just eaten. He conveyed he has no difficulty with swallowing (but has cognitive impairment). Cursory oral motor evaluation did not reveal any sign of lingual or labial weakness; pt was found to be edentulous but stated he can eat solids without teeth. Prior to oral trials, vocal quality was clear. Pt was tested with ice chips, tsp water, multiple trials of pudding, cracker in 2 sizes, and uncontrolled thin liquids via cup and straw. The oral stages were WNL. Mastication was slow as expected with pt being edentulous; he did not have any pocketing or leakage of any consistency. During the pharyngeal stage, laryngeal elevation appeared adequate and trigger of swallow appeared timely. No overt s/s of aspiration were exhibited. Impressions: Functional swallowing Recommendations: level 7 easy to chew with regular liquids.
[2024-03-07 11:36] LABS: Glucose Point of Care 149 mg/dl (65-105)
--- NOTE | 2024-03-07 13:53 | P.DS_ITS ---
DS: Admitting Diagnosis Discharge Date 03/07/2023 Admitting Diagnosis gastric outlet obstruction fecal impaction uti pipe afib diabetes heart failure hypertension COPD HOMER Chronic respiratory failure GERD DS: Discharge Diagnosis Discharge Diagnosis (1) Gastric outlet obstruction: Code(s): K31.1 - Adult hypertrophic pyloric stenosis Status: Acute (2) Fecal impaction: Code(s): K56.41 - Fecal impaction Status: Acute (3) Urinary tract infection: Code(s): N39.0 - Urinary tract infection, site not specified Status: Acute (4) Acute kidney injury: Code(s): N17.9 - Acute kidney failure, unspecified Status: Acute (5) Atrial fibrillation: Qualifiers: Atrial fibrillation type: unspecified Qualified Code(s): I48.91 - Unspecified atrial fibrillation Code(s): I48.91 - Unspecified atrial fibrillation Status: Chronic (6) Type 2 diabetes mellitus: Code(s): E11.9 - Type 2 diabetes mellitus without complications Status: Acute (7) Heart failure with preserved ejection fraction: Code(s): I50.30 - Unspecified diastolic (congestive) heart failure Status: Acute (8) Hypertension: Code(s): I10 - Essential (primary) hypertension Status: Acute (9) Chronic obstructive pulmonary disease: Code(s): J44.9 - Chronic obstructive pulmonary disease, unspecified Status: Acute (10) Obstructive sleep apnea treated with BiPAP: Code(s): G47.33 - Obstructive sleep apnea (adult) (pediatric) Status: Acute (11) Chronic respiratory failure with hypoxia, on home oxygen therapy: Code(s): J96.11 - Chronic respiratory failure with hypoxia; Z99.81 - Dependence on supplemental oxygen Status: Acute (12) Gastroesophageal reflux disease: Code(s): K21.9 - Gastro-esophageal reflux disease without esophagitis Status: Acute DS: Summary Hospital Course Reason for hospitalization: gastric outlet obstruction fecal impaction uti pipe afib diabetes heart failure hypertension COPD HOMER Chronic respiratory failure GERD Hospital Course: 74-year-old male with history of sclerosing mesenteritis, gastroesophageal reflux disease, stroke, cognitive impairment, atrial fibrillation on chronic anticoagulation, congestive heart failure, hypertension, hyperlipidemia, chronic kidney disease, deep venous thrombosis, chronic respiratory failure with hypoxia on oxygen, chronic obstructive pulmonary disease, obstructive sleep apnea on BiPAP, type 2 diabetes mellitus, and hypothyroidism who presented to the hospital via EMS from a local nursing facility for evaluation of abdominal pain. Not meeting sepsis criteria. Urinalysis was concerning for infection and patient was started on antibiotics, however culture was negative. Culture was repeated and again negative. Antibiotics were discontinued. Patient had a slight PIPE on admission that improved throughout inpatient stay. A renal US showed Medical renal disease with Renal atrophy and cortical thinning, simple bilateral cysts, and likely calculi. A CT abdomen/pelvis was obtained and showed severely distended stomach concerning for gastric outlet obstruction without obvious source identified and fecal stasis distending the rectum suggesting fecal impaction. Surgery consulted and NG placed for decompression, confirmed placement with XR. Patient pulled our in NG tube on 03/05 and reported to have several bowel movements following an enema. An Upper GI series was obtained and showed no bowel or gastric outlet obstruction, however significant retained contrast in the stomach on the 30 and 45 minute delayed images suggesting possible gastroparesis. Patient advanced back to a diabetic diet and tolerated it well denying nausea/vomiting or increased abdominal pain. No surgical intervention was required. Patient is to follow up with GI in the outpatient setting for gastroparesis. Prior to discharge patient had no complaints denies chest pain, shortness a breath, palpitations, nausea / vomiting, And abdominal pain. patient discharged back to [facility] in a stable condition. He is to follow up with his primary care provider in 1 week And call for an appointment for GI follow-up. Status at Discharge Functional status at discharge: wheelchair bound Time Spent with Patient Time attestation: Total time spent providing and/or coordinating discharge services: Time spent: Greater than 30 minutes Exam Narrative: AF HR 66 RR 18 SPO2 100 BP 124/69 General: male in no acute respiratory distress who is nontoxic appearing, lying semi recumbent in bed. HEENT: Normocephalic. Atraumatic. Extraocular movement intact. Sclera clear and anicteric. No facial asymmetry. Chest: Lungs are clear to auscultation bilaterally. No wheezes or crackles. CV: Heart was regular rate and rhythm. S1/S2. No murmurs, gallops, or rubs. Abd: Abdomen was soft. Nontender. Nondistended. Positive bowel sounds. No or ganomegaly or masses. Ext: No clubbing, cyanosis, or edema. 2+ DP pulses bilaterally. Neuro: Patient is alert and oriented x 3 (person, place, year). Speech is clear. DS: Data Data Completed and Pending Completed studies during hospitalization: abdomen pelvis CT abdomen x-ray renal ultrasound abdomen x-ray upper GI series Labs on day of discharge: Labs from last 24 hours 03/07/24 03/07/24 03/07/24 11:30 07:21 05:31 WBC RBC Hgb Hct MCV MCH MCHC RDW Plt Count MPV Immature Gran % (Auto) Neut % (Auto) Lymph % (Auto) Franklin % (Auto) Eos % (Auto) Baso % (Auto) Lymph # (Auto) Franklin # (Auto) Eos # (Auto) Baso # (Auto) Abs Immat Gran (auto) Absolute Neuts (auto) Absolute Nucleated RBC Nucleated RBC % Platelet Estimate Anisocytosis Ovalocytes Schistocytes Sodium Potassium Chloride Carbon Dioxide Anion Gap BUN Creatinine Estim Creat Clear Calc Estimated GFR Glucose POC Capillary Glucose 149 H 114 H 124 H Calcium Magnesium Total Bilirubin AST ALT Alkaline Phosphatase Total Protein Albumin 03/07/24 03/06/24 03/06/24 05:30 20:31 16:37 WBC 10.2 H RBC 3.66 L Hgb 10.0 L Hct 34.8 L MCV 95.1 MCH 27.3 MCHC 28.7 L RDW 14.4 Plt Count 160 MPV 10.3 Immature Gran % (Auto) 0.6 H Neut % (Auto) 73.0 Lymph % (Auto) 14.8 L Franklin % (Auto) 9.9 H Eos % (Auto) 1.5 Baso % (Auto) 0.2 Lymph # (Auto) 1.51 Franklin # (Auto) 1.0 H Eos # (Auto) 0.2 Baso # (Auto) 0.0 Abs Immat Gran (auto) 0.06 H Absolute Neuts (auto) 7.5 H Absolute Nucleated RBC 0.000 Nucleated RBC % 0.0 Platelet Estimate Adequate Anisocytosis 1+ Ovalocytes 1+ Schistocytes None seen Sodium 138 Potassium 4.1 Chloride 97 L Carbon Dioxide 39 H Anion Gap 2 L BUN 36 H Creatinine 1.54 H Estim Creat Clear Calc 50 Estimated GFR 44 L Glucose 122 H POC Capillary Glucose 174 H 157 H Calcium 8.9 Magnesium 2.1 Total Bilirubin 0.6 AST 18 ALT 8 Alkaline Phosphatase 63 Total Protein 6.0 L Albumin 3.0 L Discharge Plan Discharge Attending physician on discharge: Zeb Barrios Consulting providers: Destin Montanez Discharging Clinician: Ami Du Anticipated Discharge Date/Time: 03/07/24 13:38 Patient Disposition: NH Assisted/Asst Living Activity: as tolerated Diet: as tolerated, heart healthy and diabetic Discharge Instructions: Discharge disposition: Patient admitted to the hospital for abdominal pain. Initial imaging was concerning for obstruction and fecal impaction Surgery evaluated patient No need for surgical intervention as patient is tolerating a diet and having regular bowel movements Patient is to follow up with GI (office information provided below) to assess possible gastroparesis Concern for urinary tract infection on admission, however urine culture negative and patient asymptomatic Eat well balanced meals and stay hydrated Keep active to remain strong Avoid use of diapers or pads Good bobby Care every 2 hours Trend urine output Strict bleeding precautions since you remain on eliquis including shaving with an electric razor, holding pressure for greater than 20 minutes for injury, protection of had with any falls, etc. Continue to monitor blood glucose levels Monitor blood pressures Take caution while standing, rising, or moving Change positions slowly taking a break between each position change If you standing feel dizzy sat back down and take a break Encouraged to continue with yearly vaccinations Return to the emergency department if he developed sudden shortness of breath, chest pain, nausea, vomiting, upset stomach or intractable diarrhea Return to the emergency department if you develop fever greater than 101.5 Follow-up with the primary care physician within 1-2 weeks Thank you for choosing [facility] for your healthcare needs Patient Instructions: Antibiotic Form, Heart Failure (GEN), Urinary Tract Infec tion in Men (DC), Fecal Impaction (ED), Gastroparesis (DC), Blood Thinners (GEN) Patient Language: Slovak Stand Alone Forms: General Discharge Information Follow-up/Referrals: Addi Alejo MD [Physician] - Call for Appointment [facility] [Primary Care Provider] - 1 Week Discharge Medications: New Jardiance 10 mg Tablet 5 mg PO DAILY Qty: 30 0RF Continued carvedilol 12.5 mg tablet 12.5 mg PO BID cholecalciferol (vitamin D3) 1,250 mcg (50,000 unit) capsule 50,000 unit PO WEEKLY Rx Instructions: every Monday hydrocortisone 10 mg tablet 10 mg PO HS metformin 500 mg tablet extended release 24 hr 500 mg PO DAILY insulin aspart U-100 100 unit/mL (3 mL) insulin pen 5 unit SUBCUT ACHS budesonide-formoterol 160-4.5 mcg/actuation HFA aerosol inhaler 2 puff INHALATION BID furosemide 40 mg Tablet 40 mg PO DAILY albuterol sulfate 2.5 mg /3 mL (0.083 %) solution for nebulization 2.5 mg inhalation TID magnesium hydroxide [Milk of Magnesia] 400 mg/5 mL Suspension 30 ml PO PRN PRN (Reason: Constipation) Rx Instructions: give 30ml by mouth for constipation at hs if no bm in 3 days levothyroxine 50 mcg tablet 50 mcg PO DAILY bisacodyl 10 mg Suppository 10 mg RECTAL DAILY PRN (Reason: Constipation) Rx Instructions: if no results with MOM magnesium citrate [Citroma] Solution 296 ml PO PRN PRN (Reason: Constipation) Rx Instructions: if no results from enema Eliquis 5 mg Tablet 5 mg PO DAILY pantoprazole [Protonix] 40 mg tablet,delayed release (DR/EC) 40 mg PO DAILY Date of admission: 03/03/24 17:45 Primary Care Provider: [facility],PAULETTE Admitting Provider: Aly Curran Attending physician on admission: Ami Du Condition: Stable Hospitalist MIPS Heart Failure (Exclusion) Patient has history of Heart Transplant or Left Ventricular Assistive Device?: No IF YES, STOP HERE Heart Failure (Qualifier) Patient has current or prior documentation of LVEF less than or equal to 40%, or mod/servere depressed LVSF?: No IF NO, STOP HERE
== END 2024-03-07 17:05 | DRG 389 ==
LOC: ANHED 10:41 → ANH2MED 14:48
PROVIDERS: Nurse Practitioner Family; Physician Assistant; Admitting Provider General Practice; Emergency Provider Emergency Medicine; Visit Provider Student in an Organized Health Care Education/Training Program
DX: K56.41 Fecal impaction (principal); E66.2 Morbid (severe) obesity with alveolar hypoventilation; K31.1 Adult hypertrophic pyloric stenosis; I13.0 Hypertensive heart and chronic kidney disease with heart failure and stage 1 through stage 4 chronic kidney disease, or unspecified chronic kidney disease; I50.30 Unspecified diastolic (congestive) heart failure; N17.9 Acute kidney failure, unspecified; I48.20 Chronic atrial fibrillation, unspecified; J96.11 Chronic respiratory failure with hypoxia; Z68.41 Body mass index [BMI] 40.0-44.9, adult; E11.43 Type 2 diabetes mellitus with diabetic autonomic (poly)neuropathy; K31.84 Gastroparesis; E11.22 Type 2 diabetes mellitus with diabetic chronic kidney disease; N18.30 Chronic kidney disease, stage 3 unspecified; I11.0 Hypertensive heart disease with heart failure; R33.9 Retention of urine, unspecified; J44.9 Chronic obstructive pulmonary disease, unspecified; E78.5 Hyperlipidemia, unspecified; K21.9 Gastro-esophageal reflux disease without esophagitis; E03.9 Hypothyroidism, unspecified; Z99.81 Dependence on supplemental oxygen; Z79.01 Long term (current) use of anticoagulants; Z86.718 Personal history of other venous thrombosis and embolism; Z86.73 Personal history of transient ischemic attack (TIA), and cerebral infarction without residual deficits; N28.1 Cyst of kidney, acquired; N20.0 Calculus of kidney
CPT/HCPCS: 36415; 74177; 74240; 74248; 76775; 80053; 81001; 82436; 82550; 82570; 82948; 83036; 83690; 83735; 83930; 83935; 84133; 84156; 84300; 84443; 85025; 85999; 87086; 92610; 94640; 94660; 96365; 96375; 99285; A9270; G0378; J0696; J1815; J2270; J2470; J7030; Q9967

== ENCOUNTER 2024-03-28 09:05 | Inpatient (IN) | payer MEDICARE, OTHER, SELFPAY ==
[2024-03-28] VITALS (44 sets, daily range): BP systolic 59–145; BP diastolic 29–111; PULSE 79–152; RESP 18–28; TEMP 36.3–36.6; O2SAT 89–100; BMI 40.4
--- NOTE | ~2024-03-28 | CT_ITS ---
EXAMINATION: CT abdomen pelvis wo con DATE: 03/29/2024 09:34 INDICATION: Hydronephrosis and sepsis TECHNIQUE: Computed tomography (CT) of the abdomen and pelvis was performed without intravenous contr ast. Automated exposure control and iterative reconstruction technique were employed. The dose-length product was 1228.57 mGy-cm. COMPARISON: 03/03/2024 FINDINGS: New airspace consolidation with air bronchograms in the lingula and bilateral lower lobes, likely com bination of atelectasis and pneumonia. Mild cardiomegaly. Atherosclerotic coronary artery calcificati ons. No pericardial or pleural effusion. Liver, gallbladder, spleen, pancreas and bilateral adrenal g lands are normal. 2.8 cm cyst at the lower pole of the left kidney. Mild bilateral hydronephrosis. Th e high attenuation suspected renal stones in the right kidney are not visualized and more likely repr esented artifact of early contrast excretion on the prior postcontrast study. There are no evident ob structing ureteral stones. . Mccarty catheter within the bladder which also demonstrates a thickened wa ll with more prominent surrounding inflammatory stranding suspicious for cystitis. Nasogastric tube a nd small amount of contrast in the body of the stomach. Persistent 7.5 cm ball of stool at rectum whe re there is mild wall thickening and minimal surrounding stranding seen with constipation and likely secondary stercoral colitis. Small bowel and appendix are normal. No free intraperitoneal gas or flui d. No pathologically enlarged abdominal or pelvic lymphadenopathy. Thoracic and moderate to severe leah mbar spondylosis. IMPRESSION: 1. Mild bilateral hydronephrosis without evident urolithiasis. This is likely related to the wall thi ckening in the decompressed bladder itself likely related to cystitis. 2. Consolidation at the bilateral lower lungs suspicious for combination of atelectasis and pneumonia . 3. Persistent 7.5 cm ball of stool at the rectum with mild wall thickening and minimal perirectal str anding which can be seen with constipation/fecal impaction and secondary stercoral colitis. Reviewed, dictated and finalized at location A. R SYSTEM ELECTRICAL ENGINEER IMPRESSION: 1. Mild bilateral hydronephrosis without evident urolithiasis. This is likely r elated to the wall thickening in the decompressed bladder itself likely related to cystitis. 2. Consolidation at the bilateral lower lungs suspicious for combination of ate lectasis and pneumonia. 3. Persistent 7.5 cm ball of stool at the rectum with mild wall thickening and minimal perirectal stranding which can be seen with constipation/fecal impactio n and secondary stercoral colitis.
--- NOTE | ~2024-03-28 | XR_ITS ---
EXAMINATION: XR chest PICC line DATE: 03/28/2024 12:54 INDICATION: Central line placement. TECHNIQUE: A single frontal view of the chest was obtained. COMPARISON: Chest single view at 9:44 AM FINDINGS: The left lung base is excluded. There are airspace opacities in the mid and lower lung zone s. No pleural effusion or pneumothorax. Cardiomegaly is noted. The endotracheal tube tip is 4.3 cm ab ove the rusty. The nasogastric tube tip is beyond the inferior margin of the radiograph, but at leas t to the stomach. A left upper extremity peripherally inserted central venous catheter (PICC) is seen with tip in the superior vena cava. IMPRESSION: 1. PICC tip in the superior vena cava. 2. Stable airspace opacities in the mid and lower lung zones, likely atelectasis. 3. Cardiomegaly. Reviewed, dictated and finalized at location A. R MACHINE OPERATOR IMPRESSION: 1. PICC tip in the superior vena cava. 2. Stable airspace opacities in the mid and lower lung zones, likely atelectasi s. 3. Cardiomegaly.
--- NOTE | ~2024-03-28 | XR_ITS ---
EXAMINATION: XR abdomen gastric tube insert DATE: 03/28/2024 10:07 INDICATION: Nasogastric tube placement. TECHNIQUE: A semiupright view of the abdomen was obtained. COMPARISON: CT abdomen and pelvis 03/03/2024 FINDINGS: The lower abdomen is excluded. The nasogastric tube tip is in the stomach. IMPRESSION: 1. Nasogastric tube tip in the stomach. Reviewed, dictated and finalized at location A. ENT SAFETY ATTENDANT
--- NOTE | ~2024-03-28 | CT_ITS ---
CT head without contrast Indication: Altered mental status Technique: Serial scans were obtained through the brain without the administration of contrast. Dose reduction technique was used on this scan by utilizing automated exposure control and iterative recon struction technique. The dose-length product (DLP) was 605.33 mGy-cm. Findings: There is no evidence of intracranial hemorrhage, mass lesion, or acute infarct. The ventri cles and subarachnoid spaces are dilated, consistent with mild to moderate atrophy. Low attenuation regions are seen within the periventricular white matter bilaterally, likely representing changes fro m chronic microvascular ischemic disease. There is no evidence of edema, mass effect or midline shif t. The visualized paranasal sinuses and mastoid air cells are clear. Impression: No intracranial hemorrhage, mass, or acute infarct. Atrophy and chronic white matter changes, as above. Reviewed, dictated and finalized at location M. RADIOLOGY Impression: No intracranial hemorrhage, mass, or acute infarct. Atrophy and chronic white matter changes, as above.
--- NOTE | ~2024-03-28 | XR_ITS ---
Portable chest x-ray Comparison: 04/01/2024 Clinical History: Respiratory failure Findings: Probable small left pleural effusion present. There is worsening hazy bilateral airspace d isease, especially the right upper lobe. Cardiomediastinal silhouette is stable. Bones and soft tiss ues are unremarkable. Impression: Worsening hazy airspace disease bilaterally, especially right upper lobe. Correlate for worsening pul monary edema versus possibly pneumonia. Minimal left pleural effusion. Reviewed, dictated and finalized at location . CA SPRAY MIXER Impression: Worsening hazy airspace disease bilaterally, especially right upper lobe. Corre late for worsening pulmonary edema versus possibly pneumonia. Minimal left pleural effusion.
--- NOTE | ~2024-03-28 | XR_ITS ---
EXAMINATION: XR chest 1V portable DATE: 03/30/2024 05:52 INDICATION: Acute hypercapnic respiratory failure. Pneumonia. TECHNIQUE: frontal view of the chest was obtained. COMPARISON: Chest radiograph dated 03/29/2024 FINDINGS: Endotracheal tube tip 3.8 cm above the rusty. Nasogastric tube extends below the left hemidiaphragm with distal tip collimated off the study. Unchanged left upper extremity peripherally inserted centr al venous catheter (PICC) with distal 2.5 cm the catheter folded back upon itself in position within the right brachiocephalic vein. Opacities in the left perihilar region and in the bilateral lower lung zones, most prominent in the l eft lower lung zone where there is retrocardiac consolidation. Mild blunting of the left costophrenic angle consistent with small left pleural effusion. No pneumothorax or right-sided pleural effusion. Cardiomegaly. There is a small amount of contrast material in the stomach. IMPRESSION: 1. Opacities in the bilateral lower lung zones consistent with atelectasis and/or pneumonia and small left pleural effusion. 2. Cardiomegaly. 3. Unchanged left upper extremity PICC line with tip folded back upon itself in the right brachioceph alic vein. Reviewed, dictated and finalized at location A. ERMAN IMPRESSION: 1. Opacities in the bilateral lower lung zones consistent with atelectasis and/ or pneumonia and small left pleural effusion. 2. Cardiomegaly. 3. Unchanged left upper extremity PICC line with tip folded back upon itself in the right brachiocephalic vein.
--- NOTE | ~2024-03-28 | XR_ITS ---
Portable chest x-ray Comparison: 03/31/2024 Clinical History: Respiratory failure Findings: NG tube in satisfactory position. Questionable minimal bibasilar pulmonary edema. Cardiom ediastinal silhouette is stable. Bones and soft tissues are unremarkable. Impression: Questionable minimal bibasilar pulmonary edema. NG tube in place. Reviewed, dictated and finalized at location . EE MAKER SERVICER Impression: Questionable minimal bibasilar pulmonary edema. NG tube in place.
--- NOTE | ~2024-03-28 | XR_ITS ---
CHEST RADIOGRAPH CLINICAL HISTORY: Acute hypercapnic respiratory failure, pneumonia . COMPARISON: 03/30/2024 and 03/29/2024 TECHNIQUE: Single portable view of the chest. FINDINGS Left upper extremity PICC tip is redemonstrated coursing cranially and then back upon itself into the right brachiocephalic vein, towards the right internal jugular vein. This configuration is unchanged dating back to 03/29/2024. Query its functionality. Endotracheal tube is identified with its tip projecting approximately 2.6 cm above the base of the ca isa. Nasogastric tube identified with its tip extending below the left hemidiaphragm, presumably within th e stomach. The remainder of the cardiomediastinal silhouette is otherwise unremarkable. Blunting of the left costophrenic sulcus suggesting a small left-sided pleural effusion. Increased interstitial markings are identified bilaterally, findings suggesting mild pulmonary vascul ar congestion. The remainder of the lungs are clear. IMPRESSION: Small left-sided pleural effusion. Mild pulmonary vascular congestion. Left upper extremity PICC tip is redemonstrated coursing cranially and then back upon itself into the right brachiocephalic vein, towards the right internal jugular vein. This configuration is unchanged dating back to 03/29/2024. Query its functionality. Endotracheal tube and nasogastric tube in good position. Reviewed, dictated and finalized at location A. NING VALIDATION CONSULTANT IMPRESSION: Small left-sided pleural effusion. Mild pulmonary vascular congestion. Left upper extremity PICC tip is redemonstrated coursing cranially and then pedro k upon itself into the right brachiocephalic vein, towards the right internal j ugular vein. This configuration is unchanged dating back to 03/29/2024. Query it s functionality. Endotracheal tube and nasogastric tube in good position.
--- NOTE | ~2024-03-28 | XR_ITS ---
EXAMINATION: XR chest 1V portable DATE: 03/29/2024 06:16 INDICATION: Acute hypercapnic respiratory failure. TECHNIQUE: A single frontal view of the chest was obtained. COMPARISON: Chest single view 03/28/2024, CT abdomen and pelvis 03/03/2024 FINDINGS: There are airspace opacities in all left lung zones, predominantly involving the mid and lo wer lung zones. There are airspace opacities in right mid and lower lung zone. No pleural effusion or pneumothorax. Cardiomegaly is noted. The endotracheal tube tip is 3.8 cm above the rusty. The nasog astric tube tip is beyond the inferior margin of the radiograph, but at least to the stomach. A left upper extremity peripherally inserted central venous catheter (PICC) is seen with tip folded on itsel f in the right brachiocephalic vein. IMPRESSION: 1. Airspace opacities in right mid and lower lung zones and all left lung zones, left worse than righ t worse than the left, consistent with atelectasis versus pneumonia. 2. Cardiomegaly. 3. PICC tip folded on itself in the right brachiocephalic vein. Reviewed, dictated and finalized at location A. NEERING LECTURER IMPRESSION: 1. Airspace opacities in right mid and lower lung zones and all left lung zones , left worse than right worse than the left, consistent with atelectasis versus pneumonia. 2. Cardiomegaly. 3. PICC tip folded on itself in the right brachiocephalic vein.
--- NOTE | ~2024-03-28 | US_ITS ---
EXAMINATION: US renal BI DATE: 03/28/2024 15:14 INDICATION: Acute on chronic kidney disease. TECHNIQUE: Multiple ultrasound grayscale images of the kidneys were obtained. COMPARISON: None. FINDINGS: The right kidney measures 12.0 x 6.5 x 5.9 cm. The left kidney measures 11.3 x 5.9 x 5.4 cm. The kidn eys demonstrate normal echogenicity. There is new mild right hydronephrosis and proximal right hydrou reter. The echogenic and shadowing stones previously seen in the right renal collecting system are no t visualized. There is no hydronephrosis in the left kidney. No shadowing stones identified. The shaylee dder is partially decompressed which limits evaluation with a Mccarty catheter reportedly in place whic h is not identified on the single provided image of the bladder. IMPRESSION: 1. Mild right hydronephrosis. The previously seen stones in the right renal collecting system are no longer visualized patient concern for progression into the ureter with secondary obstruction. The st ones were visible on the prior CT but not on intervening upper GI study performed on 03/04/2024 sugges ting may be difficult to identify by a radiolucent would consider renal stone CT for further evaluati on. Reviewed, dictated and finalized at location A. MBLY LINE LEADER IMPRESSION: 1. Mild right hydronephrosis. The previously seen stones in the right renal co llecting system are no longer visualized patient concern for progression into t he ureter with secondary obstruction. The stones were visible on the prior CT b ut not on intervening upper GI study performed on 03/04/2024 suggesting may be d ifficult to identify by a radiolucent would consider renal stone CT for further evaluation.
--- NOTE | ~2024-03-28 | XR_ITS ---
EXAMINATION: XR chest ET placement DATE: 03/28/2024 10:07 INDICATION: Intubation. TECHNIQUE: A single frontal view of the chest was obtained on 2 radiographs. COMPARISON: Chest single view 01/19/2023, chest CT 01/13/2023 FINDINGS: There are airspace opacities in the mid and lower lung zones. No pleural effusion or pneumo thorax. Cardiomegaly is noted. The endotracheal tube tip is 1.7 cm above the rusty. The nasogastric tube tip is beyond the inferior margin of the radiograph, but at least to the stomach. IMPRESSION: 1. Airspace opacities in the mid and lower lung zones, likely atelectasis. 2. Cardiomegaly. Reviewed, dictated and finalized at location A. LAST MAKER
--- NOTE | 2024-03-28 09:05 | ECG_ITS ---
Test Date: 2024-03-28 09:11:03 Measurements Intervals [place] Rate: 102 P: 0 LA: 0 QRS: -49 QRSD: 133 T: 81 QT: 344 QTc: 448 Interpretive Statements ATRIAL FIBRILLATION WITH RAPID VENTRICULAR RESPONSE LEFT AXIS DEVIATION INTRAVENTRICULAR CONDUCTION DELAY POOR R WAVE PROGRESSION CONSIDER INFERIOR INFARCT, AGE INDETERMINATE BORDERLINE ST-T WAVE ABNORMALITY- HIGH LATERAL LEADS ABNORMAL ECG No previous ECG available for comparison Electronically Signed On 03-28-2024 10:11:12 EDITORIAL CLERK by Ayush Parker D.O.
[2024-03-28] MEDS: IPRATROPIUM 0.5 MG/ALBUTEROL SULFATE 2.5 MG AMPUL.NEB 3 ML INHALATION (09:10)
[2024-03-28 09:18] LABS: Alveolar/Arterial O2 Gradient 27.2 mmHg; Base Excess ABG 11.6 mEq/l (+/-2.0); Fractional Inspired Oxygen 36 %; HCO3 ABG 43.8 mEq/l (22.0-26.0); Oxygen Content ABG 15.6 %vol (16.0-22.0); Oxygen Saturation ABG 94.5 % (95.0-100.0); Oxyhemoglobin 94.7 % THb (90.0-100.0); PO2 ABG 93.8 mmHg (80.0-100.0); PO2 FiO2 Ratio Arterial Blood 2.61 %; Total Hemoglobin 11.6 g/dL (12.0-18.0)
[2024-03-28 09:20] LABS: pH ABG 7.191 (7.350-7.450)
[2024-03-28 09:21] LABS: Device NASAL CANNULA; Modified Allen's Test Pass; Site Drawn RIGHT RADIAL
[2024-03-28] MEDS: NOREPINEPHRINE 8 MG/D5W 250 ML 8 MG/250 ML BAG 9.38 MG IV CONT (09:25)
--- OUTSIDE RECORDS SUMMARY | 2024-03-28 09:32 | XMS_ITS | Encounter Summary ---
Author Organization [facility] Address [address] [place] [address] Phone Care Team Providers Care Lmft Name Role Phone Jens Olsen MD Primary Care Provider [phone] Bere Erwin APRN, COVER SE[employer]ER Unavailable Encounter Details Date Type Department Care Team (Late st Contact Info) Description 04/15/2022 Nursing Facility [facility] [address] [place] [address] Clint Fisher, PAC [address] [place] [address] Social History Tobacco Use Types Packs/Day Years Used Date Smoking Tobacco: Former Cigarettes Q uit: 03/16/1979 Smokeless Tobacco: Never Alcohol Use Standard Drinks/Week Comments Not Currently 0 (1 standard drink = 0.6 oz pur e alcohol) Sex and Gender Information Value Date Recorded Sex Assigned at Male 09/19/2023 5:08 PM CDT Legal Sex Male 8:06 PM CDT Gender Identity Male 09/19/2023 5:08 PM CDT Sexual Orientation Not on file COVID-19 Exposure Response Date Recorded In the last 10 days, have yo u been in contact with someone who was confirmed or suspected to have Coronavirus/COVID-19? No / Unsure 03/22/2022 3:44 AM OCEAN FREIGHT AGENT documented as of this encounter Progress Notes * Clint Fisher, PAC - 04/15/2022 10:59 AM CST [facility] PROGRESS NOTE Hans Gaytan is a 72 y.o. male at [facility] for rehabilitation. Prior to coming to rehabilitation facility patient was hospitalized at [facility] from 03/22 through 03/31 for influenza a infection and cellulitis of the lower extremity resulting in streptococcal septicemia. Upon arrival to rehabilitation facility his respiratory status was greatly improved and his antibiotic regimen have been deescalated to p.o. meds. Had Hematoemesis just prior to discharge from hospital, started on PPI therapy and Eliquis was held. Subjective: Interval History: Patient sitting comfortably in his chair. Says that he is feeling ???better?? . No more indigestion or epigastric pain. No diarrhea or constipation. Is feeling well overall. Has no acute symptoms or concerns. Therapy says he is making some improvements. Past Medical History Positives Diagnosis Date ??? A-fib (HCC) ??? Benign essential hypertension ??? Cervicalgia ??? CKD (chronic kidney disease) stage 3, GFR 30-59 ml/min (HCC) ??? Diabetes mellitus (HCC) ??? Difficulty hearing ??? GERD (gastroesophageal reflux disease) ??? Hyperlipidemia ??? Hypertension ??? Obesity ??? HOMER (obstructive sleep apnea) ??? Sclerosing mesenteritis (HCC) Family History Family history unknown: Yes Social History Socioeconomic History ??? Marital status: Spouse name: Not on file ??? Number of children: Not on file ??? Years of education: Not on file ??? Highest education level: Not on file Occupational History ??? Not on file Tobacco Use ??? Smoking status: Former Types: Cigarettes Quit date: 03/16/1979 Years since quittin.1 ??? Smokeless tobacco: Never Vaping Use ??? Vaping Use: Never used Substance and Sexual Activity ??? Alcohol use: Not Currently ??? Drug use: Not Currently ??? Sexual activity: Not on file Other Topics Concern ??? Not on file Social History Narrative ??? Not on file Past Surgical History: Procedure Laterality Date ??? CENTRAL VENOUS CATHETER N/A 05/13/2019 Procedure: PICC CYBER INTEL PLANNER; Surgeon: Imaging, [facility]; Location: [facility]; Service: Cardiology ??? CENTRAL VENOUS CATHETER N/A 05/27/2019 Procedure: PICC CYBER INTEL PLANNER; Surgeon: Imaging, [facility] Invasive; Location: [facility]; Service: Cardiology ??? CENTRAL VENOUS CATHETER N/A 03/29/2022 Procedure: PICC CYBER INTEL PLANNER; [facility]; Location: [facility]; Service: Cardiology Review of Systems: A 14 point comprehensive review of systems was negative except what is documented in interval history above. Objective: Exam: Vital Signs: B/P: 121/64 Pulse: 82 Respirations: 17 Temperature: 97.9 General: Well developed, well nourished, in no distress - pleasant, morbidly obese Skin: Normal appearance, normal turgor, no rashes - wound dressing over right great toe. HEENT: Normocephalic, atraumatic, no flaring Eyes: nonicteric, intact extra occular movement, PERRL Neck: normal, supple, no lymphadenopathy Heart: Irregularly irregular rate and rhythm, S1, S2 normal, no murmur, click, rub or gallop Lungs: clear to ausculation, normal respirations, normal precautions - wearing supplemental oxygen Abdominal: soft, non-tender; bowel sounds normal; no masses, no organomegaly 04/08: Tender to palpate over epigastric region the Extremities: no deformities, joint mobility appears intact, no clubbing - nonpitting edema in left foot Neuro: Non-focal, CN intact, sensory and motor intact - dysarthria from previous CVA Psychological: alert and oriented X3, appropriate mood and affect, Intact judgement and memory Lab Results: 04/07/2022 in [facility] emergency room, CBC with hemoglobin 10.3, MCV 100.6 otherwise unremarkable. CRP and ESR very minimally elevated. CMP with a CO2 of 39, chloride 90, albumin 2.8, protein 6.4 otherwise unremarkable. 04/11/2022: CMP with CO2 of 42, chloride 90, creatinine 1.4, albumin 2.9 otherwise unremarkable. CBC with hemoglobin 10.5, platelet count 105 otherwise unremarkable. Imaging: None Assessment/Plan: Acute GI bleeding 04/08: Highly suspicious for peptic ulcer disease. Looks like the Protonix that he had been prescribed on admission had been switched out to Prilosec low-dose on therapeutic interchange. Will write for the Prilosec again and make sure is dispensed as written, aggressive b.i.d. dosing for the next 2 weeks then q.a.m. thereafter indefinitely. Eliquis will need to be held for the next 14 days. Referral placed to GI. Clinically he looks stable so will keep him in the facility for now. Will check a CBC on Monday. Added on pepcid BID prn 04/12: P.r.n. Zofran for the nausea Hemoglobin is Stable and he remains stable clinically. Redraw ordered for MondayApril 1804/15: Clinically stable. I do not see GI appointment made yet. Episode of nausea and vomiting and diarrhea with hypotension overnight on 04/07 Emergency workup including labs and CT of abdomen were reassuring and patient was sent back to the facility with Zofran. Right great toe cellulitis [place] to be the cause of his sepsis during hospitalization Has completed his course of metronidazole, Levaquin and linezolid Well-healing No signs of infection currently, receiving wound care Generalized weakness and deconditioning Receiving senior care care and physical therapy rehabilitation Chronic atrial fibrillation Rate controlled metoprolol and diltiazem Anticoagulation with Eliquis that was temporarily held due to concern for bleeding peptic ulcer disease has been restarted 04/07: Well controlled Diabetes mellitus type 2 Continue metformin Monitor blood sugars Well controlled Previous CVA Has residual dysphagia COPD with chronic respiratory failure Wearing 2 L supplemental oxygen at baseline Continue inhalers Stable Morbid obesity Educated on weight loss strategies and encouraged to lose weight Other chronic medical conditions include hypothyroidism, obstructive sleep apnea, hypertension Stable Continue home regimen VTE Prophylaxis: On Eliquis chronically I discussed advanced care planning with this patient. This note was dictated using M*Modal fluency dictation system and there may be errors in technical inspector. Despite proof reading the note, there may be mistakes and I apologize for those. By: TAMMI Estrada, 04/15/2022 10:59 AM OCEAN FREIGHT AGENT N FREIGHT AGENT documented in this encounter Plan of Treatment Not on file documented as of this encounter Visit Diagnoses Not on filedocumented in this encounter Additional Health Concerns Infection Onset Date Last Indicated Resolved Time ESBL Comment:Patient will need three negative urine cultures to be removed from isolation. Negative x 2 on 01/09/23, 09/19/23, 10/16/23. 11/13/2022 11/13/2022 10/18/2023 8:38 AM C DT MRSA 11/14/2022 10/16/2023 COVID - 19 10/16/2023 10/16/2023 10/16/2023 2:57 PM CDT documented as of this encounter Care Teams Lmft Relationship Specialty Start Date End Date Jens Olsen MD [address] [place] [address] PCP - General Internal Medicine 03/24/22 Bere Erwin APRN, COVER SE[employer]ER [address] [place] [address] Nurse Practitioner Advanced Practice Nurse 04/26/22 documented as of this encounter
--- OUTSIDE RECORDS SUMMARY | 2024-03-28 09:32 | XMS_ITS | Encounter Summary ---
Author Organization [facility] Address [address] [place] [address] Phone Care Team Providers Care Television Repairman Name Role Phone Shante Olsen MD Primary Care Provider Bere Erwin APRN, [employer]AVA WEB SERVICES DEVELOPER Unavailable Encounter Details Date Type Department Care Team (Late st Contact Info) Description 04/01/2022 Nursing Facility [facility] [address] [place] [phone] Shane Myles MD [address] [place] [address] Social History Tobacco Use Types Packs/Day Years [...] Coronavirus/COVID-19? No / Unsure 03/22/2022 3:44 AM HEAD OF TRANSPORT LOGISTICS documented as of this encounter H&P Notes * Shane Myles MD - 04/01/2022 11:59 PM CST [facility] History and Physical Chief Complaint: Flu A with sepsis HPI: Hans Gaytan is a 72 y.o. male who has transferred to [facility] from [facility] for post-acute care and rehabilitation. The patient was admitted to the hospitalfrom 03/22/22 to 03/31/22 for Influenza A with sepsis and streptococcal septicemia. He was treated with Tamiflu and broad spectrum antibiotics. The patient was also treated for lower extremity cellulitis and PIPE. He developed acute on chronic respiratory failure and his BiPAP settings were optimized. He is now back on his baseline supplemental O2 NC with BiPAP when sleeping at night. The day before his discharge from the hospital the patient had an episode of hematemesis and he was treated with PPI for upper GI bleed and anticoagulation therapy with Eliquis is being held until 04/07. EGD was deferred until the patient is more clinically stable. At the time of this assessment the patient did nothave any complaints and was lying in bed comfortably. History obtained from: patient, medical records Review of Prior External Notes: [facility] ED and inpatient records Allergies: is allergic to lisinopril. 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 Surgical History: has a past surgical history that includes Central Venous Catheter (N/A, 05/13/2019); Central Venous Catheter (N/A, 05/27/2019); and Central Venous Catheter (N/A, 03/29/2022). Social History: reports that he quit smoking about 43 years ago. His smoking use included cigarettes. He has never used smokeless tobacco. He reports that he does not currently use alcohol. He reports that he does not currently use drugs. Physical Exam: Vital Signs: All vitals were reviewed in the facility EMR and are stable. Exam: General: Well developed, well nourished, in no distress, morbidly obese,??on oxygen per nasal cannula Skin: ??The left thigh cellulitis is still persisting, right toe cellulitis and swelling has??improved significantly HEENT: Normocephalic, atraumatic, no flaring, poor dentition Eyes:??nonicteric, intact extra occular movement, PERRL, subconjucntival hemmorhage lateral aspect of left eye Neck: ??normal, supple, no lymphadenopathy Cardiovascular: ??regular rate and rhythm, S1, S2 normal, no murmur, click, rub or gallop Lungs: ??clear to ausculation, normal respirations, normal precautions, supplemental O2 NC Abdominal: ??Obese, nontender, no obvious organomegaly : external genitalia normal in appearance Musculoskeletal: no deformities, joint mobility appears intact, no clubbing Neuro:??Non-focal, CN intact, sensory and motor intact, slurred speech Psychological: ??ANO x 3, intact judgement and memory, appropriate mood and affect Data Review: Lab Results: Lab Results Component Value Date ?? WBC 13.59 (H) 03/31/2022 ?? HEMOGLOBIN 11.3 (L) 03/31/2022 ?? HEMATOCRIT 36.1 (L) 03/31/2022 ?? PLATELETCNT 219 03/31/2022 ?? MCV 100.0 (H) 03/31/2022 ?? Lab Results Component Value Date ?? SODIUM 138 03/29/2022 ?? POTASSIUM 4.0 03/29/2022 ?? CHLORIDE 93 (L) 03/29/2022 ?? CO2VEN 42 (HH) 03/29/2022 ANIONGAP <8.0 (L) 03/29/2022 ?? GLUCOSE 138 (H) 03/29/2022 ?? BUN 46 (H) 03/29/2022 ?? CREATININE 1.35 (H) 03/31/2022 ?? BCRATIO8 41 (H) 03/29/2022 ?? TOTALPROTEIN 6.2 03/29/2022 ?? ALBUMIN 2.8 (L) 03/29/2022 ?? CALCIUM 9.4 03/29/2022 ?? TBIL 0.6 03/29/2022 ?? SGOTAST 9 03/29/2022 ?? SGPTALT 12 03/29/2022 ?? ALKALINEPHO 71 03/29/2022 ?? GFRNA 52 (L) 03/31/2022 GFRA >60 03/31/2022 ?? Lab Results Component Value Date ?? GLUCOSEPOCT 220 (H) 03/27/2022 ?? Lab Results Component Value Date ?? INR 2.6 (H) 05/29/2019 ?? PTP 27.3 (H) 05/29/2019 ?? Lab Results Component Value Date ?? HGBA1C 6.3 (H) 05/06/2019 ?? Lab Results Component Value Date ?? [id number] 861 05/17/2019 ?? Lab Results Component Value Date ?? CPK 18 (L) 03/26/2022 ?? CPK 87 05/08/2019 ?? CPK 200 05/07/2019 TROPONINI <0.300 05/29/2019 TROPONINI <0.300 05/06/2019 ?? TROPONINI 0.307 (HH) 05/05/2019 ? Lab Results Component Value Date ?? PHARTERIAL 7.48 (H) 03/29/2022 ?? PO2ART 77 03/29/2022 ?? NYW5SHP 75 (HH) 03/29/2022 ?? O2ART 95 03/29/2022 ?? Lab Results Component Value Date ?? LACTICA 0.8 03/25/2022 Imaging: Recent imaging reviewed and there were no new findings. Labs Ordered: No new labs were ordered for this visit. Medication Changes: Resume Eliquis on 04/07/22 Assessment/Plan: 1. Sepsis. Associated with Gram-positive septicemia with Streptococcus. The most recent blood cultures were negative. The patient was originally treated with IV antibiotics with ceftriaxone 2 g dailythen switched to cefepime and Flagyl before being intensified to a combination of cefepime and vancomycin. He is to complete antibiotic treatment course with PO Flagyl and levofloxacin through 04/07. ?? 2. Influenza A infection. Tamiflu was completed on 03/28. We will finish the course of treatment. ?? 3. Left lower extremity cellulitis. Improving. The venous Doppler was negative for DVT. The patientwas treated with IV abx during hospital course and is to continue PO Zyvox while at the SNF. ?? 4. PIPE superimposed on CKD stage 3. Patient was treated with IV fluid resuscitation. Kidney function has improved back to baseline. Avoid nephrotoxic agents and continue to monitor the evolution of kidney funtioning. ?? 5. Chronic respiratory failure with hypoxia and hypercapnia with chronic respiratory acidosis. Continue oxygen supplementation and monitor the oxygen saturation and adjust the dose accordingly. He natalia chronic CO2 retainer and his oxygen should be adjusted in order to avoid loss of hypoxic drive. The ABGs showed improvement during hospital course. Patient to wear BiPAP at night. ?? 6. Diabetes mellitus type 2. Well-controlled. Last A1c 6.3% in 04/2019. The patient is on basal bolus insulin therapy. Metformin was held during hospital course due to the kidney failure but has since been restarted. Monitor blood glucose while at the SNF and check A1c periodically as outpatient. 7. Morbid obesity. BMI 44.16. The patient would benefit from losing weight through a healthier dietand exercise and we discussed healthy weight loss strategies with the patient. He was placed on a low calorie diet during hospital course which should be continued. ?? 8. Obstructive sleep apnea. The patient has not been using his BiPAP at home but used nightly during hospital course and has been using since arriving at the SNF. Home compliance has been strongly encouraged. 9. Upper GI bleeding. The patient vomited bright blood. His anticoagulation therapy was held and hewas started on IV PPI. He is to continue PO pantoprazole at the SNF. The patient could eventually benefit from an EGD was not stable enough to go through/procedure during hospital course. He should return for EGD in 7-10 days. His Eliquis will be restarted on 04/07. 10. Generalized weakness and decreased mobilization. The patient is to receive PT and OT at the SNFto improve strength, balance, and mobility back to baseline. 11. Hypertension. BP stable. Continue management with diltiazem and metoprolol. Metoprolol was changed from tartrate 100 mg to succinate 50 mg daily while at the hospital which will be continued. Monitor vital signs while at the SNF. 12. Hypothyroidism. Well-controlled. Continue levothyroxine. Check TSH levels periodically. VTE Prophylaxis: The patient is on oral anticoagulation therapy with Eliquis which is being held until 04/07 due to a GI bleed Disposition and escalation or reduction of care: The patient is receive post- acute care and complete PT and OT at the SNF to improve their strength, balance, and mobility back to baseline with the goal of discharging to home. Advance Care Planning: Aggregate nost-ot-hdji time, greater than 16 minutes was spent discussing end-of-life care planning with patient/family and/or Power of Assisted Living Care Manager. Discussed CPR, Intubation, treatment goals, and Quality of life/Intensity of care. Patient desires CPR-Full Treatment I, Vance Chau, acting as a scribe, am personally taking down the notes in the presence of Dr. Shane Myles M.D. Take no action on this note until reviewed and authenticated by the physician. By: VANCE CHAU, 04/01/2022 Primary Care Physician: SHANTE OLSEN MD . I evaluated and examined the patient in the presence of scribe Vance Chau and discussed the physical findings and clinical assessment with her and reviewed the medical records and notes above and agree with the content and details of the note. Shane Myles M.D. 2:10 PM OF TRANSPORT LOGISTICS OF TRANSPORT LOGISTICS OF TRANSPORT LOGISTICS documented in this encounter Plan of Treatment [...] documented as of this encounter Care Teams Television Repairman Relationship Specialty Start Date End Date Shante Olsen MD [address] [facility] [place] [address] PCP - General Internal Medicine 03/24/22 Bere Erwin APRN, [employer]AVA WEB SERVICES DEVELOPER [address] [place] [address] Nurse Practitioner Advanced Practice Nurse 04/26/22 documented as of this encounter
--- OUTSIDE RECORDS SUMMARY | 2024-03-28 09:32 | XMS_ITS ---
Author Organization [facility] Address Unknown Allergies, Adverse Reactions, Alerts Substance Reaction Status Noted Date Resolved Date Lisinopril active 11/02/2023 Problems Problem Status Start Date End Date METABOLIC ENCEPHALOPATHY (Primary) (G93.41 - ICD-10-CM ) ACTIVE 10/21/2023 CARDIAC ARREST, CAUSE UNSPECIFIED (I46.9 - ICD-10-CM) ACTIVE 11/02/2023 TYPE 2 DIABETES MELLITUS WIT H DIABETIC CHRONIC KIDNEY DISEASE (E11.22 - ICD-10-CM) ACTIVE 11/02/2023 ACUTE AND CHRONIC RESPIRATOR Y FAILURE, UNSPECIFIED WHETHER WITH HYPOXIA OR HYPERCAPNIA (J96.20 - ICD-10-CM) ACTIVE 11/02/2023 MORBID (SEVERE) OBESITY DUE TO EXCESS CALORIES (E66.01 - ICD-10-CM) ACTIVE 11/02/2023 OSTEOMYELITIS, UNSPECIFIED (M86.9 - ICD-10-CM) ACTIVE 11/02/2023 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 (I63.50 - ICD-10-CM) ACTIVE 11/02/2023 CHRONIC OBSTRUCTIVE PULMONAR Y DISEASE, UNSPECIFIED (J44.9 - ICD-10-CM) ACTIVE 10/23/2023 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 - ICD-10-CM) ACTIVE 10/21/2023 OTHER ABNORMALITIES OF GAIT AND MOBILITY (R26.89 - ICD-10-CM) ACTIVE 11/12/2023 WEAKNESS (R53.1 - ICD-10-CM) ACTIVE 11/12/2023 COGNITIVE COMMUNICATION DEFICIT (R41.841 - ICD-10-CM) ACTIVE 11/12/2023 DYSPHAGIA, ORAL PHASE (R13.11 - ICD-10-CM) ACTIVE 11/12/2023 ENCOUNTER FOR SCREENING FOR COVID-19 (Z11.52 - ICD-10- CM) ACTIVE 11/09/2023 HYPOTHYROIDISM, UNSPECIFIED (E03.9 - ICD-10-CM) ACTIVE 11/02/2023 PAROXYSMAL ATRIAL FIBRILLATION (I48.0 - ICD-10-CM) ACT DOMONIQUE 11/02/2023 GASTRO-ESOPHAGEAL REFLUX DIS EASE WITHOUT ESOPHAGITIS (K21.9 - ICD-10-CM) ACTIVE 11/02/2023 ANEMIA, UNSPECIFIED (D64.9 - ICD-10-CM) ACTIVE 0 11/02/2023 PNEUMONITIS DUE TO INHALATIO N OF FOOD AND VOMIT (J69.0 - ICD-10-CM) ACTIVE 11/02/2023 OTHER GRAM-NEGATIVE SEPSIS (A41.59 - ICD-10-CM) ACTIVE 11/02/2023 OBSTRUCTIVE SLEEP APNEA (DANITZA LT) (PEDIATRIC) (G47.33 - ICD-10-CM) ACTIVE 11/02/2023 PROTEUS (MIRABILIS) (MORGANI I) THE CAUSE OF DISEASES CLASSIFIED ELSEWHERE (B96.4 - ICD-10-CM) ACTIVE 11/02/2023 METHICILLIN SUSCEPTIBLE STAP HYLOCOCCUS AUREUS INFECTION THE CAUSE OF DISEASES CLASSIFIED ELSEWHERE (B95.61 - ICD-10-CM) ACTIVE 11/02/2023 ESSENTIAL (PRIMARY) HYPERTENSION (I10 - ICD-10-CM) ACT DOMONIQUE 11/02/2023 UNSPECIFIED ADRENOCORTICAL I NSUFFICIENCY (E27.40 - ICD-10-CM) ACTIVE 10/24/2023 PULMONARY HYPERTENSION, UNSPECIFIED (I27.20 - ICD-10-C M) ACTIVE 10/23/2023 CHRONIC KIDNEY DISEASE, STAGE 3B (N18.32 - ICD-10-CM) ACTIVE 10/23/2023 HYPERGLYCEMIA, UNSPECIFIED (R73.9 - ICD-10-CM) ACTIVE 10/21/2023 SEVERE SEPSIS WITHOUT SEPTIC SHOCK (R65.20 - ICD-10-CM ) ACTIVE 10/21/2023 EPISTAXIS (R04.0 - ICD-10-CM) ACTIVE 10/21/2023 HYPO-OSMOLALITY AND HYPONATREMIA (E87.1 - ICD-10-CM) A CTIVE 10/21/2023 ACUTE CYSTITIS WITHOUT HEMATURIA (N30.00 - ICD-10-CM) ACTIVE 10/21/2023 Results * Individual Tests: COVID-19, PCR / PDF Document Performed by: [facility] [id number] Component Value Range Date SARS-CoV-2 (COVID-19) Detection NEGATIVE NEGATIVE 11/13/2023 05:49 pm EDT PDF Document See Attachment 11/13/2023 05 :49 pm EDT Encounters Encounter Performer Performer Role Encounter Diagnoses Location Date Discharge - Discharged / Transferred to [facility] 11/02/2023 10:44 pm EDT - 11/11/2023 06:51 pm EDT Discharge - Discharged / Transferred to [facility]) - [facility] 11/12/2023 08:12 am EDT - 11/12/2023 05:10 pm EDT Reason For Referral Edema (new or worsening) Social History
--- OUTSIDE RECORDS SUMMARY | 2024-03-28 09:32 | XMS_ITS | Encounter Summary ---
Author Name [facility] [facility] Address [address] [place] [address] Care Team Providers Care Press Clipper Name Role Phone SHANTE TINSLEY Primary Care Provider [facility] Insurance Providers: All historical and current Section Date Range: From patient's date of to the date document was created. This section includes the names of all active insurance providers for the patient. Insurance Provider Type of Coverage Plan Name Start of Policy Coverage End of Policy Coverage Group Number Member ID Insurance Provider's Telephone Number Policy Ferreira's Name Patient's Relationship to Policy Ferreira MEDICARE (WNR) MEDICARE (M) PART A Jan 13, 2014 PART A [id number] Chaz LINARES PATIENT MEDICARE (WNR) MEDICARE (M) PART B Jan 13, 2014 PART B [id number] Chaz LINARES PATIENT [employer] (WNR) MEDICARE ADVANTAGE [facility] (WNR) Apr 13, 2021 [id number] Chaz LINARES PATIENT Selected Encounter This section includes the information on record at [place] for the Encounter. Date/Time Encounter Type Encounter Description Reason Provider Source May 08, 2023 12:45 PM QNHP OL DIG ASSMT&MGMT 5-10 CLINICAL PHARMACY ICD-10-CM Z51.81 Encounter for therapeutic drug level monitoring SABINE VARGAS IHE Encounter Template Text not used by [place] Assessments - Encounter Diagnoses This section includes the primary and secondary diagnoses documented for the Encounter. Date/Time Primary/Secondary Diagnosis Diagnosis Name Provider Source May 08, 2023 12:54 PM PRIMARY Encounter for therapeutic drug level monitoring SABINE VARGAS Satya [facility] May 08, 2023 12:54 PM SECONDARY intermodal customer service (current) use of anticoagulants ALICIASABINE Satya [facility] May 08, 2023 12:54 PM SECONDARY Unspecified atrial fibrillation ALICIASABINE Satya [facility] Plan of Treatment: Future Appointments (+ 6 months) and Future Tests (+/- 45 days) The Plan of Treatment section includes future care activities for the patient from all [place] [facility] [place]. This section includes future appointments and future orders which are active, pending or scheduled. Future Appointments This section includes appointments that were scheduled to occur 6 months from the date of the Encounter, up to a maximum of 20 appointments. The data comes from all [facility]. Appointment Date/Time Appointment Type Appointme nt Facility Name May 31, 2023 08:00 AM AMBULATORY - NONE [facility] May 31, 2023 11:30 AM AMBULATORY - MEDICINE [facility] June 29, 2023 11:30 AM AMBULATORY - NONE [facility] Sep 27, 2023 10:00 AM AMBULATORY - MEDICINE [facility] Active, Pending, and Scheduled Orders This section includes a listing of several types of active, pending, and scheduled orders, including clinic medications orders, diagnostic test orders, procedure orders and consult orders; where the start date of the order is 45 days before the date of the Encounter or 45 days after the date of theEncounter. The data comes from all [facility]. Test Date/Time Test Type Test Details Facility Name Jun 07, 2023 12:00 AM Laboratory - Chemistry Order CYSTATIN C EGFR PANELS (STL-PB-MA) GREEN LI/HEP BLD/PLAS PLASMA SP [facility] Jun 07, 2023 12:00 AM Laboratory - Chemistry Order PROST. SPECIFIC AG.(PB-STL) GOLD/RED SST SERUM SP [facility] Jun 07, 2023 12:00 AM Laboratory - Microbiology Order C&S URINE URINE,RANDOM SP [facility] Jun 07, 2023 12:00 AM Laboratory - Chemistry Order TSH W/ REFLEX FT4 (STL) GREEN LI/HEP BLD/PLAS PLASMA SP [facility] Jun 07, 2023 12:00 AM Laboratory - Chemistry Order VITAMIN D, 25-HYDROXY GOLD/RED SST SERUM SP [facility] Jun 07, 2023 12:00 AM Laboratory - Chemistry Order COMPREHENSIVE METABOLIC PANEL GREEN LI/HEP BLD/PLAS PLASMA SP [facility] Jun 07, 2023 12:00 AM Laboratory - Chemistry Order LIPID PANEL (STL) GREEN LI/HEP BLD/PLAS PLASMA SP ONCE [facility] Jun 07, 2023 12:00 AM Laboratory - Chemistry Order CBC BLOOD [facility] Jun 07, 2023 12:00 AM Laboratory - Chemistry Order HGA1C BLOOD [facility] Jun 07, 2023 12:00 AM Laboratory - Chemistry Order URINALYSIS (STL-PB) URINE [facility] Jun 07, 2023 12:00 AM Laboratory - Chemistry Order MICRAL/CREAT PROFILE (STL) URINE YELLOW [facility] Social History: Smoking Status (Most current) and Tobacco Use (All prior to encounter date) This section includes the most current, and the historical, smoking and tobacco- related health factors from the [place] facility where the Encounter took place. Current Smoking Status This section includes the most current smoking, or tobacco-related health factor, from the [place] facility where the Encounter took place. Date/Time Current Smoking Status Comment Zina pappas Nov 29, 2018 07:51 PM ORYX ADMIT TOBACCO SCREEN NO [facility] Tobacco Use History This section includes a history of the smoking, or tobacco-related health factors, that were collected on or before the date of the Encounter. The data comes from the [place] facility where the Encounter took place. Date/Time Smoking Status/Tobacco Use Comment Augusto acradha Nov 29, 2018 07:28 PM LIFETIME NON-USER OF TOBACCO [facility] Encounter Notes: All associated encounter notes This section contains the clinical notes associated to the Encounter. Date/Time Encounter Note(s) Provider Source May 08, 2023 12:46 PM PHARMACY NOTE: LOCAL TITLE: ANTICOAGULATION MONITORING STL STANDARD TITLE: PHARMACY NOTE DATE OF NOTE: MAY 08, 2023@12:46 ENTRY DATE: MAY 08, 2023@12:47:27 AUTHOR: SABINE VARGAS COSIGNER: URGENCY: STATUS: COMPLETED SUBJECTIVE: Drug: Apixaban Patient identified as needing review for the following: Monitoring overdue: Lab(s) overdue: Hgb/Hct/Plt, AST/ALT, SCr (monitored every 6 months in patients over 75 years or age for with CrCl less than 60 ml/min) OBJECTIVE: Active VA and non-VA medication lists, pertinent laboratory tests (i.e., H/H, Plts, SCr, LFTs, etc), recent progress notes, and other pertinent objective data were reviewed. Pertinent Labs: HGB 15.7 g/dL 05/11/2021 14:29 HCT 50.7 H % 05/11/2021 14:29 PLT 170 10*3/uL 05/11/2021 14:29 AST/SGOT 11 U/L 05/11/2021 14:29 ALT/SGPT 9 U/L 05/11/2021 14:29 CREATININE 1.50 H mg/dL 05/11/2021 14:29 Hemoglobin done on the outside VALUE: 11.1 Date: January 12, 2023 Location: [place] [facility] HCT done on the outside VALUE: 36.6 Date: January 12, 2023 Location: [place] Creatinine (serum) done on the outside VALUE: 1.17 Date: January 12, 2023 Location: [place] Platelets done on the outside VALUE: 168 Date: January 12, 2023 Location: [place] [facility] Measurement DT WEIGHT LB(KG)[BMI] 06/08/2022 10:01 296(134.26)[48*] 01/20/2022 11:10 323(146.51)[52*] 05/11/2021 14:22 320(145.15)[52*] ASSESSMENT/PLAN: This patient has been identified by VISN 15 DOAC dashboard review of active DOAC prescriptions. Patient flagged for: overdue lab monitoring. NonVA lab results above. Hgb, Hct decreased from previous readings, PLT stable, Scr improved. Of note patient's labs drawn during admission for severe sepsis 12/2022. Will alert AC provider for awareness. For ongoing monitoring, a population-based approach will be used to ensure safety, adherence to therapy, and appropriateness of prescribing. Periodic risk/benefit assessments will be performed as necessary. Time of review: 6 minutes /paul/ SABINE VARGAS PHARMD, BCACP, CACP CLINICAL PHARMACY PRACTITIONER Signed: 05/08/2023 12:55 Receipt Acknowledged By: 05/09/2023 10:40 /paul/ AMY OROZCO, PHARM.D, BCPS CLINICAL PHARMACIST for SABINE EGAN [facility]
--- OUTSIDE RECORDS SUMMARY | 2024-03-28 09:32 | XMS_ITS | Encounter Summary ---
Author Organization [facility] Address [address] [place] [address] Phone Care Team Providers Care Rn Gyn Name Role Phone Jens Olsen MD Primary Care Provider Bere Erwin APRN, CONTROL CLERK [employer] Unavailable Encounter Details Date Type Department Care Team (Late st Contact Info) Description 04/08/2022 Nursing Facility [facility] [address] [place] [address] Clint Fisher, PAC [address] [place] [address] Social History Tobacco Use Types [...] Coronavirus/COVID-19? No / Unsure 03/22/2022 3:44 AM HOG OPERATOR documented as of this encounter Progress Notes * Clint Fisher, PAC - 04/08/2022 2:52 PM CST [facility] HALFWAY PROGRESS NOTE Hans Gaytan is a 72 y.o. male at [facility] for rehabilitation. Prior to coming to rehabilitation facility patient was hospitalized at [facility] from 03/22 through 03/31 for influenza a infection and cellulitis of the lower extremity resulting in streptococcal septicemia. Upon arrival to rehabilitation facility his respiratory status was greatly improved and his antibiotic regimen have been deescalated to p.o. meds. Had Hematoemesis just prior to discharge from hospital, started on PPI therapy and Eliquis was held. Subjective: Interval History: Seeing patient acutely today per nursing staff request. They tell me that over the night he was notfeeling well again. He then had a large bowel movement that was black appearing. No vomiting. Patient is currently lying comfortably in bed. Says that he is feeling ???better?? now but does note that he was not feeling well overnight. He is having continued indigestion type symptoms. He is having pain in his epigastric region that has been present for over a month and gets worse with p.o. intake. Admits to some nausea. Had vomiting 2 nights ago but none since then. On my exam today he has dark brown appearing stool that is heme positive. He tells me that he has never been seen by GI doctor before, never told that he has possible bleeding in his stomach before (although hospitalization medical records say otherwise). His Eliquis had just been restarted for his atrial fibrillation. Past Medical History Positives Diagnosis Date ??? [...] Types: Cigarettes Quit date: 03/16/1979 Years since quittin.0 ??? Smokeless tobacco: Never Vaping Use ??? Vaping Use: Never used Substance and Sexual Activity ??? Alcohol use: Not Currently ??? Drug use: Not Currently ??? Sexual activity: Not on file Other Topics Concern ??? Not on file Social History Narrative ??? Not on file Past Surgical History: Procedure Laterality Date ??? CENTRAL VENOUS CATHETER N/A 05/13/2019 Procedure: PICC PRACTICE DIRECTOR; Surgeon: Imaging, Sahc Invasive; Location: [facility]; Service: Cardiology ??? CENTRAL VENOUS CATHETER N/A 05/27/2019 Procedure: PICC PRACTICE DIRECTOR; Surgeon: Imaging, Sahc Invasive; Location: [facility]; Service: Cardiology ??? CENTRAL VENOUS CATHETER N/A 03/29/2022 Procedure: PICC PRACTICE DIRECTOR; Surgeon: Imaging, Sahc Invasive; Location: [facility]; Service: Cardiology Review of Systems: A 14 point comprehensive review of systems was negative except what is documented in interval history above. Objective: Exam: Vital Signs: B/P: 81/44 Pulse: 80 Respirations: 16 Temperature: 97.9 General: Well developed, well nourished, in no distress - pleasant, morbidly obese Skin: Normal appearance, normal turgor, no rashes - wound dressing over right great toe. HEENT: Normocephalic, atraumatic, no flaring Eyes: nonicteric, intact extra occular movement, PERRL Neck: normal, supple, no lymphadenopathy Heart: regular rate and rhythm, S1, S2 normal, no [...] judgement and memory Lab Results: 04/07/2022 in [facility] emergency room, CBC with hemoglobin 10.3, MCV 100.6 otherwise unremarkable. CRP and ESR very minimally elevated. CMP with a CO2 of 39, chloride 90, albumin 2.8, protein 6.4 otherwise unremarkable. Imaging: None Assessment/Plan: Acute GI [...] on Monday. Added on pepcid BID prn Episode of nausea and vomiting and diarrhea with hypotension overnight on 04/07 Emergency workup including labs and CT of abdomen were reassuring and patient was sent back to the facility with Lilian. Right great toe cellulitis [place] to be the cause of his sepsis during hospitalization Has completed his course of metronidazole, Levaquin and linezolid Well-healing No signs of infection currently, receiving wound care Generalized weakness and deconditioning Receiving intermediate care and physical therapy rehabilitation Chronic atrial [...] system and there may be errors in bottoming room inspector. Despite proof reading the note, there may be mistakes and I apologize for those. By: TAMMI Estrada, 04/08/2022 2:52 PM HOG OPERATOR OPERATOR documented in this encounter Plan of Treatment [...] documented as of this encounter Care Teams Rn Gyn Relationship Specialty Start Date End Date Jens Olsen MD [address] [place] [address] PCP - General Internal Medicine 03/24/22 Bere Erwin APRN, CONTROL CLERK [employer] [address] [place] [address] Nurse Practitioner Advanced Practice Nurse 04/26/22 documented as of this encounter
--- OUTSIDE RECORDS SUMMARY | 2024-03-28 09:32 | XMS_ITS | Clinical Summary ---
Author Organization [facility] Address [address] [place] [address] Care Team Providers Care Market Development Trainer Name Role Phone Unavailable Primary Care Provider Unavailabl e Allergies Active Allergy Reactions Criticality Noted Date Comments Lisinopril Shortness Of Breath High 05/31/2019 Medications acetaminophen (TYLENOL) 325 MG tablet Take 2 tablets (650 mg total) by mouth 3 (three) times a day. 0 06/19/19 20 Active albuterol (ACCUNEB) (5 MG/ML) 0.5% nebulizer solution Take 0.5 mL (2.5 mg total) by nebulization Every 6 hours as needed. for wheezing or shortness of breath. 0 06/19/19 20 Active Apixaban (ELIQUIS) 2.5 MG tablet tablet Take 1 tablet (2.5 mg total) by mouth 2 (two) times a day. 0 06/19/19 20 Active bumetanide (BUMEX) 2 MG tablet Take 1 tablet (2 mg total) by mouth 2 (two) times a day diuretic. 0 06/19/19 20 Active digoxin (LANOXIN) 125 MCG tablet 1 tablet (125 mcg total) by PO/Per Tube route daily. 0 06/20/19 20 Active Indacaterol-Glycop yrrolate (UTIBRON NEOHALER) 27.5-15.[address] 1 capsule into inhaler and inhale RT 2 (two) times a day. 60 capsule 06/19/19 20 Active metoprolol tartrate (LOPRESSOR) 50 MG tablet 1 tablet (50 mg total) by PO/Per Tube route 2 (two) times a day. 0 06/19/19 20 Active ondansetron ODT (ZOFRAN-ODT) 4 MG disintegrating tablet Take 1 tablet (4 mg total) by mouth every 6 (six) hours as needed for nausea or vomiting. 0 06/19/19 20 Active pantoprazole (PROTONIX) 40 MG EC/DR tablet Take 1 tablet (40 mg total) by mouth 2 (two) times a day. 0 06/19/19 20 Active potassium chloride (MICRO-K) 10 MEQ CR capsule Administer 2 capsules (20 mEq total) per tube 3 (three) times a day. 0 06/19/19 20 Active simethicone (MYLICON) 80 MG chewable tablet 1.5 tablets (120 mg total) by PO/Per Tube route 3 (three) times a day. 0 06/19/19 20 Active Active Problems Problem Noted Date Diagnosed Date Respiratory complication 05/31/2019 Social History Tobacco Use Types Packs/Day Years Used Date Smoking Tobacco: Never Assessed Sex and Gender Information Value Date Recorded Sex Assigned at Not on file Legal Sex Male 12:22 PM EDT Gender Identity Not on file Sexual Orientation Not on file Last Filed Vital Signs Vital Sign Reading Time Taken Comments Blood Pressure 120/70 06/19/2019 3:47 PM CDT Pulse 72 06/19/2019 3:47 PM CDT Temperature 36 C (96.8 F) 06/19/2019 3:47 PM CDT Respiratory Rate 18 06/19/2019 3:47 PM CDT Oxygen Saturation 94% 06/19/2019 3:47 PM CDT Inhaled Oxygen Concentration - - Weight 132.3 kg (291 lb 9.6 oz) 06/19/2019 1:53 PM CDT Height 170.2 cm (5' 7 ) 06/03/2019 1:00 PM CDT Body Mass Index 45.67 06/03/2019 1:00 PM CDT Plan of Treatment Not on file Advance Directives * Full Resuscitation (Latest Code Status on File) Date Activated Date Inactivated Comments 05/31/2019 11:14 PM 06/19/2019 8:26 PM Full code * DNR Date Activated Date Inactivated Comments 05/31/2019 10:56 PM 05/31/2019 11:14 PM DNR-DNI Question Answer Comments I have discussed this order with the patient or his/her surrogate and have received informed consent. Yes
--- OUTSIDE RECORDS SUMMARY | 2024-03-28 09:32 | XMS_ITS | Continuity of Care Document ---
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 It does not include entries that were removed or entered in error. Problem Status Onset Date Problem Type Date of Resolution Comments Source Anticoagulant effect Active Condition [facility] Atrial fibrillation Active Condition Feb 02, 2015 Entered By: SHANTE TINSLEY Comment: dx 2014 Entered By: SHANTE TINSLEY Comment: status post failed cardioversion [facility] Benign essential hypertension Active Condition [facility] CAD - Coronary Artery Disease ([facility] [id number]) Active Condition Jun 12, 2019 Entered By: SHANTE TINSLEY Comment: [place] 05/05/2019 [facility] Cerebral infarction Active Condition Oct 23, 2019 Entered By: SHANTE TINSLEY Comment: possibly af ter recent admission to hospital 2020 Entered By: SHANTE TINSLEY Comment: speech impairment [facility] Cervicalgia Active Condition [facility] Diabetes Mellitus Type 2 ([facility] [id number]) Active Condition [facility] Difficulty hearing Active Condition [facility] Hyperlipidemia Active Condition [facility] Hypothyroidism ([facility] [id number]) Active Condition [facility] Morbid obesity ([facility] [id number]) Active Condition [facility] Obstructive sleep apnea syndrome Active Condition Feb 02, 2015 Entered By: SHANTE TINSLEY Comment: status post sleep study 02/01/15Sep 2019 Entered By: SHANTE TINSLEY Comment: pt had resp failure due to leslie. on Bipap 04/[address] [facility] 06/21/2019 [facility] Renal Impairment ([facility] [id number]) Active Condition [facility] Sclerosing mesenteritis Active Condition [facility] Therapeutic drug level Active Condition [facility] Diagnosis: ICD-10-CM G47.33 Obstructive sleep apnea (adult) (pediatric) Active Diagnosis [facility] Diagnosis: ICD-10-CM Z51.81 Encounter for therapeutic drug level monitoring Active Diagnosis [facility] Diagnosis: ICD-10-CM J44.9 Chronic obstructive pulmonary disease, unspecified Active Diagnosis [facility] Diagnosis: ICD-10-CM E66.01 Morbid (severe) obesity due to excess calories Active Diagnosis [facility] Diagnosis: ICD-10-CM I10 Essential (primary) hypertension Active Diagnosis [facility] Diagnosis: ICD-10-CM M54.16 Radiculopathy, lumbar region Active Diagnosis [facility] Diagnosis: ICD-10-CM Z91.89 Oth personal risk factors, not elsewhere classified Active Diagnosis [facility] Diagnosis: ICD-10-CM E78.5 Hyperlipidemia, unspecified Active Diagnosis [facility] Medications Combined list of outpatient medications from Department of Defense and [facility] Affairs facilities.Medications provided include 1) outpatient medications from the last 15 months, and 2) patient-reported medications. Medication Details Route Status Patient Instructions Prescription Expires Prescription Number Last Dispense Date Ordering Provider Order Date Order Qty Source APIXABAN 5MG TAB TAKE ONE TABLET BY MOUTH TWICE A DAY FOR ANTICOAG ULATION ORAL ACTIVE 05/31/2024 [id number] SHANTE TINSLEY 2023 180 [facility] APIXABAN 5MG TAB TAKE ONE TABLET BY MOUTH TWICE A DAY FOR ANTICOAG ULATION ORAL DISCONT INUED 05/26/2023 [id number] 4 SHANTE TINSLEY 2022 180 [facility] ATORVASTATI N CA 40MG TAB TAKE ONE-HALF TABLET BY MOUTH EVERY EVENING FOR HIGH CHOLESTE ROL ORAL ACTIVE 09/27/2024 [id number] 4 SHANTE TINSLEY 2023 45 [facility] ATORVASTATI N CA 40MG TAB TAKE ONE-HALF TABLET BY MOUTH EVERY EVENING FOR HIGH CHOLESTE ROL ORAL DISCONT INUED 10/20/2023 [id number] Young MARIA 2022 45 [facility] CHOLECALCIF MELISSA 50MCG (2,000UNIT) TAB TAKE TWO TABLETS BY MOUTH ONCE A DAY FOR VITAMIN D DEFICIEN CY. ORAL ACTIVE 05/31/2024 [id number] 4 SHANTE TINSLEY 2023 200 [facility] FEXOFENADIN E HCL 180MG TAB TAKE ONE TABLET BY MOUTH EVERY MORNING NEEDED ORAL ACTIVE Young MARIA 2022 [facility] FUROSEMIDE 40MG TAB TAKE ONE TABLET BY MOUTH EVERY MORNING ORAL ACTIVE 10/04/2024 [id number] 5 SHANTE TINSLEY 2023 90 [facility] LEVOTHYROXI NE NA 50MCG TAB (SYNTHROID) TAKE ONE TABLET BY MOUTH EVERY MORNING BEFORE A MEAL FOR THYROID. TAKE 30 MINUTES BEFORE FOOD. TAKE SEPARATE LY FROM ALL OTHER MEDICATI ONS. ORAL ACTIVE 05/31/2024 [id number] 4 SHANTE TINSLEY 2023 90 [facility] LEVOTHYROXI NE NA 50MCG TAB (SYNTHROID) TAKE ONE TABLET BY MOUTH EVERY MORNING BEFORE A MEAL FOR THYROID. TAKE 30 MINUTES BEFORE FOOD. TAKE SEPARATE LY FROM ALL OTHER MEDICATI ONS. ORAL DISCONT [facility] 03/09/2024 [id number] 4 SHANTE TINSLEY 2023 90 [facility] METFORMIN HCL 500MG 24HR TAB,SA TAKE ONE TABLET BY MOUTH ONCE A DAY FOR BLOOD SUGAR CONTROL. TAKE WITH FOOD. AVOID ALCOHOL. DISCONTI NUE BEFORE GETTING XRAY DYE. ORAL ACTIVE 07/31/2024 [id number] 4 SHANTE TINSLEY 2023 30 [facility] METFORMIN HCL 500MG 24HR TAB,SA TAKE ONE TABLET BY MOUTH ONCE A DAY FOR BLOOD SUGAR CONTROL. TAKE WITH FOOD. AVOID ALCOHOL. DISCONTI NUE BEFORE GETTING XRAY DYE. ORAL DISCONT INUED 06/15/2023 [id number] [facility] SHANTE 2023 30 [facility] METFORMIN HCL 500MG 24HR TAB,SA TAKE ONE TABLET BY MOUTH ONCE A DAY FOR BLOOD SUGAR CONTROL. TAKE WITH FOOD. AVOID ALCOHOL. DISCONTI NUE BEFORE GETTING XRAY DYE. ORAL DISCONT INUED 05/26/2023 [id number] [facility] SHANTE 2022 90 [facility] METOPROLOL TARTRATE 100MG TAB TAKE ONE-HALF TABLET BY MOUTH TWICE A DAY FOR HEART/BL OOD PRESSURE . TAKE WITH OR IMMEDIAT KEN FOLLOWIN G FOOD. ORAL ACTIVE 04/18/2024 [id number] [facility] SHANTE 2023 90 [facility] METOPROLOL TARTRATE 100MG TAB TAKE ONE-HALF TABLET BY MOUTH TWICE A DAY FOR HEART/BL OOD PRESSURE . TAKE WITH OR IMMEDIAT KEN FOLLOWIN G FOOD. ORAL DISCONT INUED 05/26/2023 [id number] [facility] SHANTE 2022 90 [facility] MUPIROCIN 2% OINT,TOP APPLY LIGHTLY TO AFFECTED AREA(S) TWICE A DAY EXTERNAL USE ONLY. APPLY TO TOE TOPICA L ACTIVE 05/31/2024 [id number] [facility] SHANTE 2023 22 [facility] NYSTATIN 379399TWX/G M OINT,TOP APPLY LIGHTLY TO AFFECTED AREA(S) THREE TIMES A DAY - TOPICAL USE ONLY. APPLY TO RIGHT UNDER ARM TOPICA L ACTIVE 05/31/2024 [id number] [facility] SHANTE 2023 30 [facility] PANTOPRAZOL E NA 40MG TAB,EC TAKE ONE TABLET BY MOUTH TWICE A DAY TO LOWER STOMACH ACID - TAKE 30 MINUTES BEFORE MEAL(S) ORAL ACTIVE 04/18/2024 [id number] [facility] 180 [facility] PANTOPRAZOL E NA 40MG TAB,EC TAKE ONE TABLET BY MOUTH TWICE A DAY TO LOWER STOMACH ACID - TAKE 30 MINUTES BEFORE MEAL(S) ORAL DISCONT INMUKESH 05/26/2023 [id number] 4 SHANTE TINSLEY 2022 180 [facility] POLYETHYLEN E GLYCOL 3350 PWDR,ORAL MIX AND DRINK 2 CAPFULS BY MOUTH ONCE A DAY (MEASURE WITH CAP AND MIX IN 8 OZ OF WATER) ORAL ACTIVE 05/31/2024 [id number] BUTCHKATARINA SHANTE 2023 510 [facility] SENNOSIDES 8.6MG TAB TAKE ONE TABLET BY MOUTH ONCE A DAY NEEDED ORAL ACTIVE Young MARIA 2022 [facility] Allergies, Adverse Reactions, Alerts Combined list of allergies from Department of Defense and Veterans Affairs facilities. It does not include entries that were removed or entered in error. Substance Category Reaction Severity Reaction type Status Date Reported Comments Source LISINOPRIL Propensity to adverse reactions to drug (finding) Cough active 9 [facility] Immunizations Combined list of available immunizations from the Department of Defense and Veterans Affairs facilities. Immunization Series Date Given Administered By Site Reaction Lot Number CVX Code Drug County Surveyor Status Comments Source ZOSTER RECOMBINANT 2 2021 OLI ANGEL H R LEFT DELTO ID [id number] 187 complet ed [facility] INFLUENZA, HIGH-DOSE, QUADRIVALENT 2 2021 197 complet ed [facility] COVID-19 (MODERNA), MRNA, LNP-S, PF, 100 MCG/0.5 ML DOSE 2 2020 207 complet ed MOD; [id number]; 2 [facility] COVID-19 (MODERNA), MRNA, LNP-S, PF, 100 MCG/0.5 ML DOSE 1 2020 207 complet ed MOD; [id number]; 1 [facility] INFLUENZA, INJECTABLE, QUADRIVALENT, PRESERVATIVE FREE 2018 150 complet ed [facility] ZOSTER RECOMBINANT 1 2018 187 complet ed [facility] INFLUENZA, HIGH DOSE SEASONAL 2017 135 complet ed Partner: [facility]. Administe red by: CHAYITO BELL (VCU=[id number]). Partner 5 Lot#: [id number] Mfr: Sanofi Pasteur; Dosage: 0.5 [facility] INFLUENZA, INJECTABLE, QUADRIVALENT, PRESERVATIVE FREE 2017 150 complet ed [facility] INFLUENZA, SEASONAL, INJECTABLE, PRESERVATIVE FREE 2016 140 complet ed Right Deltoid [facility] PNEUMOCOCCAL POLYSACCHARID E PPV23 2016 33 complet ed [facility] ZOSTER LIVE 2015 121 complet ed [facility] PNEUMOCOCCAL CONJUGATE PCV 13 2014 133 complet ed [facility] TDAP 2014 115 complet ed Left Deltoid [facility] INFLUENZA, UNSPECIFIED FORMULATION 2014 88 complet ed [facility] INFLUENZA, SEASONAL, INJECTABLE, PRESERVATIVE FREE 1 2013 140 complet ed [facility] Results Combined list of recent chemistry, hematology and other laboratory results from Department of Defense and Veterans Affairs, ranging from 15 months to all on record, depending upon the facility. Order Name Results Value Reference Range Date Interpretation Specimen Comments Source GLUCOSE ,BLOOD- poct (STL) GLUCOSE [MASS/VOLUM E] IN BLOOD BY AUTOMATED TEST STRIP 210 mg/dL 72 - 99 2022 H Specimen Type: BLOOD Comment: Test Performed by: [id number] Meter #: [id number] Ordering Provider: PAUL TINSLEY Report Released Date/Time: Jun 08, 2022 04:34 PM Reporting Lab: [facility] [address] [facility] [address] Performing Lab: [facility] [address] [facility] [address] [facility] Encounters Combined list of: 1) Encounters from Department of Veterans Affairs facilities going backup to the last 18 months, not all VA inpatient encounters are included; 2) Encounters from the Department of Defense facilities going backup to 280 months. Location Location Details Encounter Type Encounter Number Reason For Visit Attending Provider ADM Date DC Date Status Disposition Source [facility] Outpatient Encounter [id number] 09/28 [facility] Outpatient Encounter [id number] [place] DURAN E 09/28 [facility] Outpatient Encounter [id number] 09/[address] [facility] Outpatient Encounter [id number] 10/[address] [facility] Outpatient Encounter [id number] 10/12 [facility] PRO PHONE CALL 21-30 MIN [id number] Diagnos is: ICD-10- CM E78.5 Hyperli pidemia , unspeci fied CARLOZ MARIA ROLE L 10/19 [facility] Outpatient Encounter [id number] 10/[address] [facility] Outpatient Encounter [id number] 11/[address] [facility] Outpatient Encounter [id number] [id number] 11/[address] [facility] Outpatient Encounter [id number] 11/[address] [facility] Outpatient Encounter [id number] 11/28 [facility] Outpatient Encounter [id number] 12/01 [facility] Outpatient Encounter [id number] [id number] 12/08 [facility] En[facility] [id number] 12/13 [facility] Encounter [id number] [id number] 12/19 [facility] Encounter [id number] [id number] CABRERA GALLARDO IC T 12/21 [facility] Outpatient Encounter [id number] [id number] 12/22 [facility] Outpatient Encounter [id number] [id number] 12/29 [facility] Encounter [id number] [id number] 01/01 [facility] Encounter [id number] [id number] 9 01/02 [facility] Out[facility] Encounter [id number] [id number] 01/03 [facility] Encounter [id number] [id number] 3 01/12 [facility] Encounter [id number] [id number] DANIELLE MURRAY 01/13 [facility] Encounter [id number] [id number] 01/22 [facility] Outpatient Encounter [id number] DANN HEAD 01/26 [facility]counter [id number] [id number] 02/20 [facility] Encounter [id number] [id number] 7 02/20 [facility] Encounter [id number] [id number] 02/21 [facility] Encounter [id number] [id number] 02/21 [facility] Out[facility] Encounter [id number] [id number] 5 02/22 [facility] Encounter [id number] [id number] 3 03/03 [facility] Encounter [id number] [id number] 03/06 [facility] Encounter [id number] [id number] 03/06 [facility]counter [id number] [id number] SILVIANO VICENTE S 03/07 [facility] Outpatient Encounter [id number] [id number] 03/09 [facility] Outpatient Encounter [id number] [id number] 03/13 [facility] Outpatient Encounter [id number] [id number] 03/14 [facility] Encounter [id number] [id number] 3 03/15 [facility] Encounter [id number] [id number] 2 03/17 [facility] Outpatient Encounter [id number] [id number] 1 03/17 [facility] Encounter [id number] [id number] 03/20 [facility] Encounter [id number] [id number] 2 03/20 [facility] Outpatient Encounter [id number] [id number] 1 03/21 [facility] Encounter [id number] [id number] 5 03/29 [facility] Outpatient Encounter [id number] [id number] 2 03/31 [facility] [id number] [id number] 4 04/[address] [facility] Outpatient Encounter [id number] [id number] 04/[address] [facility] Outpatient Encounter [id number] [id number] 04/[address] [facility] Outpatient Encounter [id number] [id number] 04/17 [facility] SELF-MGMT EDUC & TRAIN 1 PT [id number] Diagnos is: ICD-10- CM I10 Essenti al (primar y) hyperte [place]LOTTE Malave CA E 04/17 [facility] Outpatient Encounter [id number] [id number] 1 04/18 [facility] CB OFF/OP EST JUNE X REQ PHY/QHP [id number] Diagnos is: ICD-10- CM I10 Essenti al (primar y) hyperte JILL Mayers 04/18 [facility] Outpatient Encounter [id number] [id number] 04/19 [facility] Outpatient Encounter [id number] 04/25 [facility] QNHP OL DIG ASSMT&MGMT 5-10 [id number] [id number] Diagnos is: ICD-10- CM Z51.81 Encount er for therape utic drug level monitor Remedios Dennis 05/[address] [facility] Outpatient Encounter [id number] [id number] 05/07 [facility] Outpatient Encounter [id number] [id number] 4 05/[address] [facility] Outpatient Encounter [id number] [id number] 05/10 [facility] Outpatient Encounter [id number] [id number] POLK M 05/[address] [facility] Outpatient Encounter [id number] [id number] 05/15 [facility] Outpatient Encounter [id number] [id number] Diagnos is: ICD-10- CM Z91.89 Oth persona l risk factors , not elsewhe re classif ied [place] DURAN E 05/15 [facility] Outpatient Encounter [id number] [id number] 05/[address] [facility] Outpatient Encounter [id number] [id number] 05/[address] [facility] Outpatient Encounter [id number] [id number] 05/21 [facility] Outpatient Encounter [id number] [id number] 5 05/22 [facility] Outpatient Encounter [id number] [id number] 5 05/24 [facility] Outpatient Encounter [id number] [id number] 05/[address] [facility] Outpatient Encounter [id number] [id number] 1 05/29 [facility] Outpatient Encounter [id number] [id number] Chaz ANGEL 05/29 [facility] Outpatient Encounter [id number] [id number] 05/30 [facility] OFFICE O/P EST MOD 30 MIN [id number] Diagnos is: ICD-10- CM I10 Essenti al (primar y) hyperte nsion SHANTE TINSLEY 05/30 [facility] Outpatient Encounter [id number] RIAN PERDOMO 05/30 [facility] Outpatient Encounter [id number] [id number] 1 05/31 [facility] Outpatient Encounter [id number] [id number] 06/12 [facility] Outpatient Encounter [id number] [id number] 06/13 [facility] Outpatient Encounter [id number] [id number] 06/26 [facility] Outpatient Encounter [id number] A 06/[address] [facility] Outpatient Encounter [id number] [id number] Diagnos is: ICD-10- CM M54.16 Radicul opathy, lumbar region DOSANTOS C 06/[address] [facility] Outpatient Encounter [id number] [id number] 06/[address] [facility] HC PRO PHONE CALL 5-10 MIN [id number] [id number] Diagnos is: ICD-10- CM G47.33 Obstruc tive sleep apnea (adult) ([facility]) ELADIOLOCO ELIAS M 07/[address] [facility] Outpatient Encounter [id number] [id number] 07/[address] [facility] Outpatient Encounter [id number] [id number] 07/[address] [facility] Outpatient Encounter [id number] [id number] 5 07/[address] [facility] Outpatient Encounter [id number] [id number] 07/[address] [facility] Outpatient Encounter [id number] [id number] 08/[address] [facility] Outpatient Encounter [id number] [id number] 08/[address] [facility] Outpatient Encounter [id number] [id number] 6 08/[address] [facility] Outpatient Encounter [id number] [id number] 4 08/[address] [facility] Outpatient Encounter [id number] [id number] 09/[address] [facility] Outpatient Encounter [id number] [id number] 7 09/[address] [facility] Outpatient Encounter [id number] [id number] 5 09/[address] [facility] Outpatient Encounter [id number] [id number] 8 09/[address] [facility] Outpatient Encounter [id number] [id number] 7 09/[address] [facility] Outpatient Encounter [id number] [id number] 9 09/[address] [facility] Outpatient Encounter [id number] [id number] 1 09/[address] [facility] Outpatient Encounter [id number] [id number] 09/[address] [facility] Outpatient Encounter [id number] [id number] 09/25 [facility] OFFICE O/P EST MOD 30 MIN [id number] Diagnos is: ICD-10- CM I10 Essenti al (primar y) hyperte nsSHANTE Salazar 09/26 [facility] En[facility] [id number] 10/01 [facility] Outpatient Encounter [id number] [id number] 10/01 [facility] Outpatient Encounter [id number] [id number] [place] DURAN E 10/02 [facility] Outpatient Encounter [id number] [id number] 10/03 [facility] Outpatient Encounter [id number] [id number] 4 10/08 [facility] Outpatient Encounter [id number] [id number] 5 10/08 [facility] Outpatient Encounter [id number] [id number] 0 10/09 [facility] Outpatient Encounter [id number] [id number] 10/18 [facility] Outpatient Encounter [id number] 10/19 [facility] Outpatient Encounter [id number] 10/19 [facility] [id number] 10/22 [facility] Outpatient Encounter [id number] 10/[address] [facility] Outpatient Encounter [id number] 11/[address] [facility] Outpatient Encounter [id number] 5 11/[address] [facility] Outpatient Encounter [id number] 7 11/[address] [facility] Outpatient Encounter [id number] 5 11/13 [facility] Outpatient Encounter [id number] 11/21 [facility] [place] Outpatient Encounter [id number] 11/[address] [facility] Outpatient Encounter [id number] 11/[address] [facility] Outpatient Encounter [id number] 8 12/[address] [facility] HC PRO PHONE CALL 5-10 [place] [id number] Diagnos is: ICD-10- CM G47.33 Obstruc tive sleep apnea (adult) ([facility]) DESTINY MCINTYRE 12/[address] [facility] HC PRO PHONE CALL 5-10 MIN [id number] Diagnos is: ICD-10- CM E66.01 Morbid (severe ) obesity due to excess calorie s DESTINY MCINTYRE 12/[address] [facility] HC PRO PHONE CALL 5-10 MIN [id number] Diagnos is: ICD-10- CM G47.33 Obstruc tive sleep apnea (adult) ([facility] martín) DESTINY MCINTYRE 12/[address] [facility] Outpatient Encounter [id number] 01/[address] [facility] HC PRO PHONE CALL 11-20 MIN [id number] Diagnos is: ICD-10- CM G47.33 Obstruc tive sleep apnea (adult) ([facility] martín) DESTINY MCINTYRE 01/[address] [facility] Outpatient Encounter [id number] 01/[address] [facility] MEASURE BLOOD OXYGEN LEVEL [id number] Diagnos is: ICD-10- CM J44.9 Chronic obstruc tive pulmona ry disease , unspeci fied DESTINY MCINTYRE 01/[address] [facility] Outpatient Encounter [id number] 01/[address] [facility] Outpatient Encounter [id number] AMADOR SAPP 01/[address] [facility] Outpatient Encounter [id number] 01/[address] [facility] OFF/OP EST MAY X REQ PHY/QHP [id number] Diagnos is: ICD-10- CM G47.33 Obstruc tive sleep apnea (adult) ([facility]) MEAGAN GALLARDO G 01/[address] [facility] Outpatient Encounter [id number] 01/[address] [facility] Outpatient Encounter [id number] 01/[address] [facility] QNHP OL DIG ASSMT&MGMT 5-10 [id number] Diagnos is: ICD-10- CM Z51.81 Encount er for therape utic drug level monitor KASSIDY Hancock 02/[address] [facility] OFF/OP EST JUNE X REQ PHY/QHP [id number] Diagnos is: ICD-10- CM G47.33 Obstruc tive sleep apnea (adult) ([facility]) MEAGAN GALLARDO LLY G 02/[address] [facility] OFF/OP EST JUNE X REQ PHY/QHP [id number] Diagnos is: ICD-10- CM G47.33 Obstruc tive sleep apnea (adult) ([facility]) MEAGAN GALLARDO G 02/[address] [facility] Outpatient Encounter [id number] 02/[address] [facility] Outpatient Encounter [id number] Ramón FUNG ODD 03/08 [facility] Outpatient Encounter [id number] DANN HEADISIDRA KAELYN 03/08 [facility] Outpatient Encounter [phone] [id number] DANNY SHAFER Raine 03/13 [facility] Social History Combined list of available smoking, tobacco, and other social history from [facility] of Defense and [facility] facilities. Social History Type Response Date Comment Sour e Tobacco smoking status NHIS VA-TOBACCO NEVER USED 05/31/2023 [facility] History of tobacco use VA-TOBACCO NEVER USED 01/20/2022 [facility] History of tobacco use [place]-TOBACCO FORMER USER 10/12/2020 [facility] History of tobacco use [place]-TOBACCO FORMER USER 10/23/2019 [facility] History of tobacco use ORYX ADMIT TOBACC O SCREEN NO 11/29/2018 [facility] History of tobacco use LIFETIME NON-USER OF TOBACCO 11/29/2018 [facility]/22/2018 [facility] History of tobacco use QUIT TOBACCO >7 Y EARS AGO 04/24/2017 [facility] History of tobacco use QUIT TOBACCO >7 Y EARS AGO 08/25/2016 [facility] History of tobacco use QUIT TOBACCO >7 Y EARS AGO 02/16/2016 [facility] History of tobacco use QUIT TOBACCO >7 Y EARS AGO 02/02/2015 [facility]
--- OUTSIDE RECORDS SUMMARY | 2024-03-28 09:32 | XMS_ITS | Encounter Summary ---
Author Organization [facility] Address [address] [place] [address] Phone Care Team Providers Care Financial Assistance Advisor Name Role Phone Jens Olsen MD Primary Care Provider [phone] Bere Erwin APRN, MASSAGE OPERATOR Unavailable Encounter Details Date Type Department Care Team (Late st Contact Info) Description 04/07/2022 Nursing Facility [facility] [address] [place] [address] Clint Fisher, PAC [address] [place] [address] Social History Tobacco Use Types [...] Coronavirus/COVID-19? No / Unsure 03/22/2022 3:44 AM ENVIRONMENTAL ENGINEERING INTERN documented as of this encounter Progress Notes * Clint Fisher, PAC - 04/07/2022 5:29 PM CST [facility] PROGRESS NOTE Hans Gaytan is a 72 y.o. male at [facility] for rehabilitation. Prior to coming to rehabilitation facility patient was hospitalized at [facility] from 03/22 through 03/31 for influenza a infection and cellulitis of the lower extremity resulting in streptococcal septicemia. Upon arrival to rehabilitation facility his respiratory status was greatly improved and his antibiotic regimen have been deescalated to p.o. meds. Had Hematoemesis just prior to discharge from hospital, started on PPI therapy and Eliquis was held. Subjective: Interval History: Patient is currently sitting comfortably in bed. He says that he is feeling okay currently. Howeverovernight he had developed nausea, vomiting and diarrhea and was noted to be hypotensive and was sent to [facility] Emergency Room for evaluation and the patient just came back to the facility from the emergency room. He says he is feeling better now but does make note of some indigestion type symptoms. Believes this has been going on for about 1 month. Denies any other symptoms or concerns. Past Medical History Positives Diagnosis Date ??? [...] CENTRAL VENOUS CATHETER N/A 05/13/2019 Procedure: PICC STRAW BOSS; Surgeon: Imaging, Sahc Invasive; Location: [facility]; Service: Cardiology ??? CENTRAL VENOUS CATHETER N/A 05/27/2019 Procedure: PICC STRAW BOSS; Surgeon: Imaging, Sahc Invasive; Location: [facility]; Service: Cardiology ??? 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 CRP and ESR very minimally elevated. CMP with a CO2 of 39, chloride 90, albumin 2.8, protein 6.4 otherwise unremarkable. Imaging: None Assessment/Plan: Episode of nausea and vomiting and diarrhea with hypotension overnight on 04/07 Emergency workup including labs and CT of abdomen were reassuring and patient was sent back to the facility with Lilian. Right great toe cellulitis [place] to be the cause of his sepsis during hospitalization Has completed his course of metronidazole, Levaquin and linezolid Well-healing No signs of infection currently, receiving wound care Generalized weakness and deconditioning Receiving [facility] care and physical therapy rehabilitation Chronic atrial [...] this patient. This note was dictated using [employer] fluency dictation system and there may be errors in cutter barrel drum. Despite proof reading the note, there may be mistakes and I apologize for those. By: TAMMI Estrada, 04/07/2022 5:29 PM ENVIRONMENTAL ENGINEERING INTERN RONMENTAL ENGINEERING INTERN documented in this encounter Plan of Treatment [...] documented as of this encounter Care Teams Financial Assistance Advisor Relationship Specialty Start Date End Date Jens Olsen MD [address] [place] [address] PCP - General Internal Medicine 03/24/22 Bere Erwin, DOPE MIXER, MASSAGE OPERATOR [address] [place] [address] Nurse Practitioner Advanced Practice Nurse 04/26/22 documented as of this encounter
--- OUTSIDE RECORDS SUMMARY | 2024-03-28 09:33 | XMS_ITS | Clinical Summary ---
Author Organization [facility] Address [address] [place] [address] Phone Care Team Providers Care Curer Acid Drum Name Role Phone Jens Olsen MD Primary Care Provider Bere Erwin APRN, MAINTENANCE SHOP MANAGER Unavailable Allergies Active Allergy Reactions Criticality Noted Date Comments Lisinopril Anaphylaxis 05/05/2019 Medications albuterol (PROVENTIL, VENTOLIN) (2.5 MG/3ML) 0.083% Nebulizer SolnIndications :Chronic obstructive pulmonary disease, unspecified COPD type (HCC) 3 mL by Nebulization route 3 times daily. 360 mL 05/28/19 Active polyethylene glycol (GLYCOLAX, MIRALAX) Pack Take 1 Packet by mouth daily. Dissolve in 4-8 oz of liquid. 90 Packet 05/29/19 Active bisacodyl 10 MG Suppository 1 Suppository by Rectal route daily as needed for Constipation - 2nd line (constipation). 10 Suppository 05/28/19 Active metFORMIN (GLUCOPHAGE-XR) 500 MG TABLET SR 24 HR Take 500 mg by mouth 2 times daily (with meals). 05/03/19 Active furosemide (LASIX) 40 MG Tablet Take 40 mg by mouth 2 times daily. 12/08/19 Active levothyroxine (SYNTHROID) 50 MCG Tablet Take 50 mcg by mouth every morning (before breakfast). 12/01/19 Active metoprolol Succinate (TOPROL-XL) 50 MG TABLET SR 24 HR Take 1 Tablet by mouth daily. 90 Tablet 04/01/19 Active Additional Information Patient taking differently:50 mg OralEVERY MORNING, Reported on 05/20/2022 atorvastatin (LIPITOR) 20 MG Tablet Take 20 mg by mouth daily. Active aspirin 81 MG Chewable Tablet Take 81 mg by mouth daily. Active dilTIAZem (CARDIZEM CD) 180 MG CAPSULE SR 24 HR Take 1 Capsule by mouth daily. 90 Capsule 11/18/19 Active pantoprazole (PROTONIX) 40 MG Tablet Delayed Response Take 1 Tablet by mouth daily. 30 Tablet 11/17/19 Active methylPREDNISol one (MEDROL DOSPACK) 4 MG Tablet Therapy Pack See product package insert for dosing schedule 21 Tablet 10/08/19 Active Active Problems Problem Noted Date Diagnosed Date Epistaxis 10/21/2023 Acute on chronic respiratory failure with hypoxia and hypercapnia 10/16/2023 COPD exacerbation 10/16/2023 Acute heart failure 10/16/2023 Urinary tract infection 10/16/2023 Abdominal ascites 10/16/2023 Elevated LFTs 10/16/2023 Elevated lipase 10/16/2023 Type 2 diabetes mellitus 10/16/2023 Severe sepsis 01/07/2023 Cellulitis of right lower extremity 01/07/2023 Cellulitis of groin 01/07/2023 Acute metabolic encephalopathy 01/07/2023 Acute kidney injury superimposed on chronic kidn ey disease 01/07/2023 Generalized weakness 01/07/2023 History of CVA with residual deficit 01/07/2023 History of pulmonary embolism 01/07/2023 Hypothyroidism 01/07/2023 Streptococcal septicemia 11/16/2022 Cellulitis 11/16/2022 Sepsis, due to unspecified o rganism, unspecified whether acute organ dysfunction present 11/13/2022 Influenza A 03/22/2022 Acute on chronic respiratory failure with hypoxi a 05/31/2019 Osteomyelitis of right foot 05/26/2019 NSTEMI (non-ST elevated myocardial infarction) 0 05/06/2019 Cardiac arrest 05/05/2019 Encephalopathy acute 05/05/2019 CKD (chronic kidney disease) stage 3, GFR 30-59 ml/min 05/05/2019 Atrial fibrillation with RVR 05/05/2019 Pneumonia of both lower lobes due to infectious organism 05/05/2019 Elevated brain natriuretic peptide (BNP) level 0 05/05/2019 Hyperkalemia 05/05/2019 Type 2 diabetes mellitus wit h stage 3 chronic kidney disease, without long-term current use of insulin 05/05/2019 GERD (gastroesophageal reflux disease) HOMER (obstructive sleep apnea) Hypertension Hyperlipidemia Immunizations Immunization Administration Dates Next Due Albumin IV 11/15/2022, 3,05/11/2019,05/10/2019,05/10/2019,05/10/19 20,05/09/2019,05/09/2019 Family History Medical History Relation Name Comments Cancer Mother Relation Name Status Comments Father Mother Social History Tobacco Use Types Packs/Day Years Used Date Smoking Tobacco: Former Cigarettes Q uit: 03/16/1979 Smokeless Tobacco: Never Tobacco Cessation:Counseling Given: Not Answered Alcohol Use Standard Drinks/Week Comments Not Currently 0 (1 standard drink = 0.6 oz pur e alcohol) [facility] [employer] Answer Date Recorded In the past 12 months has [employer], gas, oil, or water [employer] threatened to shut off services in your home? No 10/16/2023 Social Connection and Isolation Panel [NHANES] A nswer Date Recorded In a typical week, how many times do you talk on the phone with family, friends, or neighbors? Never 10/16/2023 How often do you get together with friends or re latives? Never 10/16/2023 How often do you attend scientologist or hoahaoism serv ices? Never 10/16/2023 Do you belong to any clubs o r organizations such as scientologist groups, unions, fraternal or athletic groups, or school groups? No 10/16/2023 How often do you attend meet ings of the clubs or organizations you belong to? Never 10/16/2023 Are you , , di vorced, , never , or living with a partner? 10/16/2023 AUDIT-C Answer Date Recorded Q1: How often do you have a drink containing alcohol? Patient unable to answer 10/16/2023 Q2: How many drinks containi ng alcohol do you have on a typical day when you are drinking? Patient unable to answer Q3: How often do you have si x or more drinks on one occasion? Patient unable to answer 10/16/2023 Overall Financial Resource Strain (CARDIA) Answe r Date Recorded How hard is it for you to pa y for the very basics like food, housing, medical care, and heating? Patient unable to answer 10/16/2023 [facility] - Occupational Stress Questionnaire Answer Date Recorded Do you feel stress - tense, restless, nervous, or anxious, or unable to sleep at night because your mind is troubled all the time - these days? Patient unable to answer 10/16/2023 Exercise Vital Sign Answer Date Recorde d On average, how many days pe r week do you engage in moderate to strenuous exercise (like a brisk walk)? 0 days 10/16/2023 On average, how many minutes do you engage in exercise at this level? 0 min 10/16/2023 Hunger Vital Sign Answer Date Recorded Within the past 12 months, y ou worried that your food would run out before you got the money to buy more. Patient unable to answer 10/16/2023 Within the past 12 months, t he food you bought just didn't last and you didn't have money to get more. Patient unable to answer 10/16/2023 PRAPARE - Transportation Answer Date Re corded In the past 12 months, has l ack of transportation kept you from medical appointments or from getting medications? Patient unable to answer 10/16/2023 In the past 12 months, has l ack of transportation kept you from meetings, work, or from getting things needed for daily living? Patient unable to answer 10/16/2023 Housing Stability Vital Sign Answer Avery e Recorded In the last 12 months, was t here a time when you were not able to pay the mortgage or rent on time? Patient unable to answer 10/16/2023 In the past 12 months, how m any times have you moved where you were living? 0 10/16/2023 At any time in the past 12 m [facility], were you homeless or living in a fpc (including now)? Patient unable to answer 10/16/2023 Sexually Active Control Partners Comments Not Currently Sex and Gender Information Value Date Recorded Sex Assigned at Male 09/19/2023 5:08 PM CDT Legal Sex Male 8:06 PM CDT Gender Identity Male 09/19/2023 5:08 PM CDT Sexual Orientation Not on file Last Filed Vital Signs Vital Sign Reading Time Taken Comments Blood Pressure 147/82 10/21/2023 2:00 PM CDT Pulse 104 10/21/2023 1:40 PM CDT Temperature 36.1 C (97 F) 10/21/2023 2:00 PM CDT Respiratory Rate 12 10/21/2023 1:45 PM CDT Oxygen Saturation 97% 10/21/2023 2:00 PM CDT Inhaled Oxygen Concentration - - Weight 134.8 kg (297 lb 1.6 oz) 10/21/2023 6:00 AM CDT Height 177.8 cm (5' 10 ) 10/16/2023 11: 48 AM CDT Body Mass Index 42.63 10/16/2023 11:48 AM CDT Plan of Treatment Health Maintenance Due Date Last Done Comments Diabetes: Eye Exam 1949 Colonoscopy 1994 Colorectal Cancer Screening 1994 Cologuard 1999 Immunochemical Fecal Occult Blood 1999 AAA Screening Ultrasound 2014 Diabetes: Foot Exam 05/12/2020 05/13/2019 Influenza Immunization (#1) 10/15/202304/13, 12/07/2021, 11/19/2019, Additional history exists SARS-COV-2 Immunization ( season) 2023 11/09/2020, 10/12/2020 Respiratory Syncytial Virus (RSV) Immunization (Adult) (1 - 1-dose 75+ series) 02/02/2024 Diabetes: Hemoglobin A1c 04/20/2024 024, 10/17/2023, 10/17/2023, Additional history exists Diabetes: Nephropathy Screening 10/20/2024 10/21/2023, 10/20/2023, 10/19/2023, Additional history exists DTaP/Tdap/Td Immunization Discontinued 02/02/2015, TdaP Immunization Completed 02/02/2015 Zoster Immunization Completed 01/20/2022, 09/21/2018, 03/05/2015 Pneumococcal Immunization (50+ years) Completed 04/19/2022, 02/16/2016, 02/02/2015 Pneumococcal Immunization Combined Discontinued 04/19/2022, 02/16/2016, 02/02/2015 Hepatitis C Virus (HCV) Screening Completed 10/16/2023 Hepatitis B Immunization Aged Out No longer eligible based on patient's age to complete this topic Meningococcal Immunization (ACWY) Aged Out No longer eligible based on patient's age to complete this topic Rotavirus Immunization Aged Out No lo nger eligible based on patient's age to complete this topic Procedures Procedure Name Priority Date/Time Associated Diagnosis Comments CMP (COMPREHENSIVE METABOLIC PANEL) STAT 10/21/2023 1:17 AM CDT HEMOGLOBIN A1C W/ ESTIMATED GLUCOSE Routine 10/17/2023 1:59 PM CDT HEPATITIS PANEL ACUTE (AHP) STAT 10/16/2023 1:47 PM CDT from Last 3 Months or Most Recently Relevant to Health Maintenance Results * (ABNORMAL) CMP (Comprehensive Metabolic Panel) (10/21/2023 1:17 AM CDT) SODIUM 135(L) 136 - 145 mmol/L 10/21/2023 1:54 AM CDT [facility] POTASSIUM 4.3 3.5 - 5.1 mmol/L 10/21/2023 1:54 AM CDT [facility] CHLORIDE 99 98 - 107 mmol/L 10/21/2023 1:54 AM CDT [facility] CO2, VENOUS 29 22 - 30 mmol/L 10/21/2023 1:54 AM CDT [facility] ANION GAP 11.3 <18.0 mmol/L 10/21/2023 1:54 AM CDT [facility] GLUCOSE 174(H) 70 - 99 mg/dL 10/21/2023 1:54 AM CDT [facility] BUN 52(H) 8 - 26 mg/dL 10/21/2023 1:54 AM CDT [facility] CREATININE, BLOOD 2.64(H) 0.70 - 1.30 mg/dL 10/21/2023 1:54 AM CDT [facility] BUN/CREATININE RATIO 20 12 - 20 ratio 10/21/2023 1:54 AM CDT [facility] TOTAL PROTEIN 4.7(L) 6.3 - 8.2 g/dL 10/21/2023 1:54 AM CDT [facility] ALBUMIN 2.7(L) 3.5 - 5.0 g/dL 10/21/2023 1:54 AM T [facility] A/G RATIO 1.4 1.0 - 2.2 10/21/2023 1:54 AM CDT [facility] CALCIUM 7.9(L) 8.7 - 10.5 mg/dL 10/21/2023 1:54 AM CDT [facility] T BILI 0.9 0.2 - 1.2 mg/dL 10/21/2023 1:54 AM T [facility] SGOT (AST) 38(H) 5 - 34 U/L 10/21/2023 1:54 AM [facility] SGPT (ALT) 131(H) 0 - 55 U/L 10/21/2023 1:54 AM [facility] ALKALINE PHOSPHATASE 52 40 - 150 U/L 10/21/2023 1:54 AM T [facility] GFR, ESTIMATED 25(L) >=60 10/21/2023 1:54 AM T [facility] Comment: Creatinine Clearance is the preferred criteria for selecting drug dose adjustments in renally impaired patients. The GFR is provided as additional pertinent clinical information. GFR is reported in mL/min/1.73 sq m. Calculation based on the Chronic Kidney Disease Epidemiology Collaboration (CKD- EPI) equation refit without adjustment for race. GFR, EST. 29(L) >=60 024 1:54 AM T [facility] GFR, EST. NONAFRICAN 24(L) >=60 10/21/2023 1:54 AM [facility] Blood Venipuncture / Unknown 10/21/2023 1:17 AM CDT 10/21/2023 1:30 AM CDT Georgette Cristobal Kaitlynn STEEPING PRESS TENDER, MAINTENANCE SHOP MANAGER CHEMISTRY ORDERABLES Final Result [facility] [address] [place] [address] * (ABNORMAL) Hemoglobin A1C (10/17/2023 1:59 PM CDT) [facility] HGB-A1C 7.9(H) 4.0 - 6.0 % 10/17/2023 2:26 PM CDT [facility] Est Average Glucose 180.0 mg/dL 10/17/2023 2:26 PM CDT [facility] Blood Venipuncture / Unknown 10/17/2023 1:59 PM CDT 10/17/2023 2:03 PM CDT Narrative [facility] - 10/17/2023 2:26 PM CDT HEMOGLOBIN A1C: DIABETIC PATIENTS: WELL-CONTROLLED: 6.2 - 7.0 INTERMEDIATE WELL-CONTROLLED: 7.0 - 9.0 POORLY-CONTROLLED: >9.0 Baljinder Olmedo MD CHEMISTRY ORDERABLES Final Result Performing Organization Address City/[facility] Co de Phone Number [facility] [address] [place] [address] * Hepatitis Panel Acute (AHP) (10/16/2023 1:47 PM CDT) [facility] HEPATITIS A IGM ANTIBODY NON DETECTED NON DETECTED 10/16/2023 10:32 PM CDT [facility] Comment: IGM Antibodies to HAV not detected. Does not exclude early acute or recovered HAV infection. HEP B CORE AB (IGM) NON DETECTED NON DETECTED 10/16/2023 10:32 PM CDT [facility] Comment:IGM anti-HBC not det ected. Does not exclude the possibility of exposure to or infection with HBV. HEPATITIS B SURFACE ANTIGEN NON DETECTED NON DETECTED 10/16/2023 10:32 PM CDT [facility] Comment:A nonreactive test r esult does not exclude the possibility of exposure to or infection with Hepatitis B virus. A nonreactive test result in individuals with prior exposure to hepatitis B may be due to antigen levels below the detection limit of this assay or lack of antigen reactivity to the antibodies in this assay. hepatitis C antibody 0.08 <1 S/CO 10/16/2023 10:32 PM CDT [facility] Comment: Signal/Cutoff ratio < 0.79 is Nondetected Signal/Cutoff ratio 0.80-0.99 is Grayzone Signal/Cutoff ratio > 0.99 is Detected Supplemental assays are recommended if signal/cutoff ratio is >/=1.00. Signal/cutoff ratio result >/= 5.00 is 97% predictive of positivity for recombinant immunoblot assay (RIBA) and will be reported to the [place] Department of Public Health as required. 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 10/16/2023 Insurance [place] [address] Advance Directives Documents on File Type Date Recorded Patient Unishear Operator Expl anation [place] Surrogate Physician Appointment 10/21/2023 8:28 AM [facility], 10/20/2023 [place] Sur[place] Phys[place] Appointment 05/29/2019 5:36 PM Physician Appointmen t of Healthcare Surrogate POLST/POST/[place] DNR 05/29/2019 3:33 PM POLST POLST/POST/[place] DNR 05/29/2019 9:00 AM POLST 05/28/19 [place] Surrogate Physician Appointment 05/07/2019 1:43 PM Physician Appointmen t of Healthcare Surrogate * Full Code (Latest Code Status on File) Date Activated Date Inactivated Comments 10/21/2023 12:35 AM CPR-Full Treat ment: FULL ARREST: Attempt Resuscitation/CPR wit intubation and mechanical ventilation. PRE-ARREST: Use entire range of life support measures to stabilize the patient. * No CPR-Selective Treatment Date Activated Date Inactivated Comments 10/20/2023 6:13 PM 10/21/2023 12:35 AM No CPR - Sarita ctive Treatment: FULL ARREST: Do Not Attempt Resuscitation. PRE-ARREST: DO NOT USE INTUBATION OR MECHANICAL VENTILATION, but may use basic medical treatment like CPAP or BiPAP, antibiotics, IV fluids, oxygen, etc. Avoid care in ICU setting. Question Answer Comments Physician documentation made in notes? Yes * Full Code Date Activated Date Inactivated Comments 10/16/2023 8:54 PM 10/20/2023 6:13 PM CPR-Full Treat ment: FULL ARREST: Attempt Resuscitation/CPR wit intubation and mechanical ventilation. PRE-ARREST: Use entire range of life support measures to stabilize the patient. * No CPR-Selective Treatment Date Activated Date Inactivated Comments 10/16/2023 7:25 PM 10/16/2023 8:54 PM No CPR - Selec tive Treatment: FULL ARREST: Do Not Attempt Resuscitation. PRE-ARREST: DO NOT USE INTUBATION OR MECHANICAL VENTILATION, but may use basic medical treatment like CPAP or BiPAP, antibiotics, IV fluids, oxygen, etc. Avoid care in ICU setting. Question Answer Comments Physician documentation made in notes? Yes * Full Code Date Activated Date Inactivated Comments 01/07/2023 10:42 PM 01/12/2023 5:53 PM CPR-Full Treatment: FULL ARREST: Attempt Resuscitation/CPR wit intubation and mechanical ventilation. PRE-ARREST: Use entire range of life support measures to stabilize the patient. Care Teams Curer Acid Drum Relationship Specialty Start Date End Date Jens Olsen MD [address] [place] [address] PCP - General Internal Medicine 03/24/22 Bere Erwin APRN, MAINTENANCE SHOP MANAGER [address] [place] [address] Nurse Practitioner Advanced Practice Nurse 04/26/22
--- OUTSIDE RECORDS SUMMARY | 2024-03-28 09:33 | XMS_ITS | Encounter Summary ---
Author Name [facility] Organization [facility] [place] Address [address] [place] [address] Care Team Providers Care Jukebox Routeman Name Role Phone SHANTE TINSLEY Primary Care Provider [facility] Insurance Providers: All historical and [...] PART A Jan 13, 2014 PART A [id number] Chaz LINARES PATIENT MEDICARE (WNR) MEDICARE (M) PART B Jan 13, 2014 PART B [id number] Chaz LINARES PATIENT [facility] [facility] (WNR) MEDICARE ADVANTAGE [facility] (WNR) Apr 13, 2021 [id number] Chaz LINARES PATIENT Selected Encounter This section includes the information on record at [place] for the Encounter. Date/Time Encounter Type Encounter Description Reason Provider Source Feb 12, 2024 09:29 AM QNHP OL DIG ASSMT&MGMT 5-10 CLINICAL PHARMACY ICD-10-CM Z51.81 Encounter for therapeutic drug level monitoring MAUREEN JETT E Encounter Template Text not used by [place] Assessments - Encounter Diagnoses This section includes the primary and secondary diagnoses documented for the Encounter. Date/Time Primary/Secondary Diagnosis Diagnosis Name Provider Source Feb 12, 2024 09:42 AM PRIMARY Encounter for therapeutic drug level monitoring MAUREEN JETT [facility] Feb 12, 2024 09:42 AM SECONDARY assisted (current) use of anticoagulants MAUREEN JETT [facility] Feb 12, 2024 09:42 AM SECONDARY Unspecified atrial fibrillation MAUREEN JETT [facility] Social History: Smoking Status (Most current) and Tobacco Use (All prior to encounter date) This section includes the most current, and the historical, smoking and tobacco- related health factors from the [place] facility where the Encounter took place. Current Smoking Status This section includes the most current smoking, or tobacco-related health factor, from the [place] facility where the Encounter took place. Date/Time Current Smoking Status Comment Zina pappas Nov 29, 2018 07:51 PM ORYX ADMIT TOBACCO SCREEN NO [facility] Tobacco Use History This section includes a history of the smoking, or tobacco-related health factors, that were collected on or before the date of the Encounter. The data comes from the [place] facility where the Encounter took place. Date/Time Smoking Status/Tobacco Use Comment Augusto isamar Nov 29, 2018 07:28 PM LIFETIME NON-USER OF TOBACCO [facility] Encounter Notes: All associated encounter notes This section contains the clinical notes associated to the Encounter. Date/Time Encounter Note(s) Provider Source Feb 12, 2024 09:29 AM PHARMACY NOTE: LOCAL TITLE: ANTICOAGULATION MONITORING STL STANDARD TITLE: PHARMACY NOTE DATE OF NOTE: FEB 12, 2024@09:29 ENTRY DATE: FEB 12, 2024@09:29:22 AUTHOR: MAUREEN JETT EXP COSIGNER: URGENCY: STATUS: COMPLETED ANTICOAGULATION MONITORING STL Has ADDENDA SUBJECTIVE: Drug: apixaban Patient identified as needing review for the following: Monitoring overdue: Lab(s) overdue: Hgb/Hct/Plt, SCr OBJECTIVE: Active [place] and non[place] medication lists, pertinent laboratory tests (i.e., H/H, Plts, SCr, LFTs, etc), recent progress notes, and other pertinent objective data were reviewed. Hemoglobin done on the outside VALUE: 8.7 Date: November 22, 2023 Location: [facility] HCT done on the outside VALUE: 28.4 Date: November 22, 2023 Location: [facility] Creatinine (serum) done on the outside VALUE: 1.67 Date: November 22, 2023 Location: [facility] Hemoglobin done on the outside VALUE: 8 Date: November 11, 2023 Location: [facility] HCT done on the outside VALUE: 28.1 Date: November 11, 2023 Location: [facility] Creatinine (serum) done on the outside VALUE: 1.75 Date: November 11, 2023 Location: [facility] Platelets done on the outside VALUE: 101 Date: November 11, 2023 Location: [facility] AST/SGOT done on the outside Value: 35 Date: November 11, 2023 Location: [facility] ALT/SGPT done on the outside Value: 7 Date: November 11, 2023 Location: [facility] ASSESSMENT/PLAN: Monitoring overdue: NonVA lab results above. Hgb low, but relatively stable when comparing recent outside labs. SCr is elevated but stable. AST/ALT are WNL. Alerting Anticoag CPS for awareness. For ongoing monitoring, a population-based approach will be used to ensure safety, adherence to therapy, and appropriateness of prescribing. Periodic risk/benefit assessments will be performed as necessary. Time of review: 5 minutes /daniel Jett PharmD, [facility] Clinical Pharmacist Signed: 02/12/2024 09:42 Receipt Acknowledged By: 02/12/2024 11:18 /daniel Pinzon Pharm.D., [facility] Clinical Pharmacist 02/13/2024 ADDENDUM STATUS: COMPLETED Pt alerted on dashboar for Hgb <10. Addressed above and CPS alerted to above previously. Will dismiss alert. /daniel Jett PharmD, [facility] Clinical Pharmacist Signed: 02/13/2024 09:00 MAUREEN JETT [facility]
--- OUTSIDE RECORDS SUMMARY | 2024-03-28 09:33 | XMS_ITS | Encounter Summary ---
Author Name [facility] ([place] Organization [facility] ([place]) Address [address] [place] [address] Care Team Providers Care Senior Quality Assurance Analyst Name Role Phone SHANTE TINSLEY Primary Care Provider [facility] Insurance Providers: All historical and current Section [...] PART A Jan 13, 2014 PART A [id number] Chaz LINARES PATIENT MEDICARE (WNR) MEDICARE (M) PART B Jan 13, 2014 PART B [id number] [phone] Chaz LINARES PATIENT [facility] (WNR) MEDICARE ADVANTAGE [facility] (WNR) Apr 13, 2021 [id number] Chaz LINARES PATIENT Selected Encounter This section includes the information on record at [place] for the Encounter. Date/Time Encounter Type Encounter Description Reason Provider Source Mar 13, 2024 08:53 AM Outpatient Encounter GENERAL INTERNAL MEDICINE MANE SHAFER [facility] Encounter Template Text not used by [place] Social History: Smoking Status (Most current) and Tobacco Use (All prior to encounter date) This section includes the most current, and the historical, smoking and tobacco- related health factors from the [facility] where the Encounter took place. Current Smoking Status This section includes the most current smoking, or tobacco-related health factor, from the [facility] where the Encounter took place. Date/Time Current Smoking Status Comment Zina pappas Nov 29, 2018 07:51 PM ORYX ADMIT TOBACCO SCREEN NO [facility] Tobacco Use History This section includes a history of the smoking, or tobacco-related health factors, that were collected on or before the date of the Encounter. The data comes from the [facility] where the Encounter took place. Date/Time Smoking Status/Tobacco Use Comment Augusto acradha Nov 29, 2018 07:28 PM LIFETIME NON-USER OF TOBACCO [facility] Encounter Notes: All associated encounter notes This section contains the clinical notes associated to the Encounter. Date/Time Encounter Note(s) Provider Source Mar 03, 2024 08:53 AM NONVA NOTE: LOCAL TITLE: [facility] CARE COORD PLAN STANDARD TITLE: NONVA NOTE DATE OF NOTE: MAR 03, 2024@08:53 ENTRY DATE: MAR 13, 2024@08:53:17 AUTHOR: DANNY SHAFER EXP COSIGNER: URGENCY: STATUS: COMPLETED Emergency Notification Intake Date Presenting to the Facility: Feb Method of Contact: Submitted to Centralized Call Center Notification ID: [id number] [facility] Ref[place]: [id number] [facility] [facility] Address: City: [place] State: [place] Zip Code: Phone : [facility] Point of Contact: Name: Phone: Chief complaint: UTI Primary Diagnosis: Disposition Discharged Date of discharge: Feb [facility] [place] records sent securely to [place] PCP and RNCM. Alerting PCP team to this note for continuity of care. [place] SUMMARY AND RELEVANT RECORDS RECEIVED VIA [facility]. SENT TO [facility] FOLDER TO BE SCANNED INTO CPRS /paul/ DANNY MONZON RN REGISTERED NURSE Signed: 03/13/2024 08:55 Receipt Acknowledged By: 03/13/2024 10:06 /es/ NICOLÁS COTE,RN REGISTERED NURSE 03/13/2024 15:27 /paul/ SHANTE TINSLEY MD STAFF PHYSICIAN DANNY SHAFER. [facility] [place] [facility]
--- OUTSIDE RECORDS SUMMARY | 2024-03-28 09:33 | XMS_ITS | Encounter Summary ---
Author Organization [facility] Address [address] [place] [address] Phone Care Team Providers Care Gum Dipper Name Role Phone Jens Olsen MD Primary Care Provider Bere Erwin APRN, BACK OFFICE MEDICAL ASSISTANT Unavailable Encounter Details Date Type Department Care Team (Late st Contact Info) Description 04/22/2022 Nursing Facility [facility] [address] [place] [address] Clint Fisher, PAC [address] [place] [id number] Social History Tobacco Use Types Packs/Day [...] PM CDT Sexual Orientation Not on file documented as of this encounter Progress Notes * Clint Fisher, TAMMI - 04/22/2022 12:57 PM CST [facility] PROGRESS NOTE Hans Gaytan is a 72 y.o. male at [facility] for rehabilitation. Prior to coming to rehabilitation facility patient was hospitalized at [facility] from 03/22 through 03/31 for [...] his chair. Says that he is feeling ???okay?? . Says he has had some diarrhea the last few days. Still no indigestion. No abdominal pain. No other acute symptoms or concerns. Therapy says that he is improving. Past Medical History Positives Diagnosis Date ??? [...] CENTRAL VENOUS CATHETER N/A 05/13/2019 Procedure: PICC SPECIAL NEEDS NANNY; Surgeon: Imaging, [facility]; Location: [facility]; Service: Cardiology ??? CENTRAL VENOUS CATHETER N/A 05/27/2019 Procedure: PICC SPECIAL NEEDS NANNY; Surgeon: Imaging, [facility]; Location: [facility]; Service: Cardiology ??? CENTRAL VENOUS CATHETER N/A 03/29/2022 Procedure: PICC SPECIAL NEEDS NANNY; Surgeon: Pa, [facility]; Location: [facility]; Service: Cardiology Review of Systems: A 14 point comprehensive review of systems was negative except what is documented in interval history above. Objective: Exam: Vital Signs: B/P: 121/64 Pulse: 64 Respirations: 18 Temperature: 97.9 General: Well developed, well nourished, [...] judgement and memory Lab Results: 04/07/2022 in [facility] emergency room, CBC with hemoglobin 10.3, MCV 100.6 otherwise unremarkable. CRP and ESR very minimally elevated. CMP with a CO2 of 39, chloride 90, albumin 2.8, protein 6.4 otherwise unremarkable. 04/11/2022: CMP with CO2 of 42, chloride 90, creatinine 1.4, albumin 2.9 otherwise unremarkable. CBC with hemoglobin 10.5, platelet count 105 otherwise unremarkable. 04/18/2022: BMP with glucose 129, potassium 3.3, chloride 86, CO2 greater than 45 otherwise unremarkable. CBC with hemoglobin 11.4, WBC 4.4 otherwise unremarkable. Imaging: None Assessment/Plan: Generalized weakness and deconditioning Receiving alf care and physical therapy rehabilitation 04/22: Improving Obstructive sleep apnea Wears BiPAP at night Chronic CO2 retainer 04/19: CO2 levels on blood work trending up. Patient saying that he has been intermittently compliantwith BiPAP. Discussed with patient the importance of compliance, discussed with nursing staff as well. Recommended that he wear his BiPAP some during the day today and to wear all night long going forward. Lab redraw scheduled for 04/25/2022 Acute GI bleeding 04/08: Highly suspicious for [...] do not see GI appointment made yet. 04/19: Hemoglobin reassuring. Clinically this has resolved. I do not see any appointment or office visit notes from GI. Will discuss with nursing staff. 04/22: Has appointment with GI on 04/26. Episode of nausea and vomiting and diarrhea with hypotension overnight on 04/07 Emergency workup including labs and CT of abdomen were reassuring and patient was sent back to the facility with Zofran. Right great toe cellulitis [place] to be the cause of his sepsis during hospitalization Has completed his course of metronidazole, Levaquin and linezolid Well-healing No signs of infection currently, receiving wound care Chronic atrial fibrillation Rate controlled metoprolol and [...] weight Other chronic medical conditions include hypothyroidism, hypertension Stable Continue home regimen VTE Prophylaxis: On Eliquis chronically I discussed advanced care planning with this patient. This note was dictated using M*Modal fluency dictation system and there may be errors in labor standards director. Despite proof reading the note, there may be mistakes and I apologize for those. By: Clint Fisher, PAC, 04/22/2022 12:57 PM PICK PULLING MACHINE TENDER PULLING MACHINE TENDER documented in this encounter Plan of Treatment [...] 10/16/2023 COVID - 19 10/16/2023 10/16/2023 10/16/2023 2:5 7 PM CDT documented as of this encounter Care Teams Gum Dipper Relationship Specialty Start Date End Date Jens Olsen MD [address] [place] [address] PCP - General Internal Medicine 03/24/22 Bere Erwin APRN, BACK OFFICE MEDICAL ASSISTANT [address] [place] [address] Nurse Practitioner Advanced Practice Nurse 04/26/22 documented as of this encounter
--- OUTSIDE RECORDS SUMMARY | 2024-03-28 09:33 | XMS_ITS | Encounter Summary ---
Author Organization [facility] Address [address] [place] [address] Phone Care Team Providers Care Radiologic Technician Name Role Phone Jens Olsen MD Primary Care Provider [phone] Bere Erwin APRN, SHEET METAL DUCT INSTALLER APPRENTICE Unavailable Encounter Details Date Type Department Care Team (Late st Contact Info) Description 04/19/2022 Nursing Facility [facility] [address] [place] [address] Clint Fisher, PAC [address] [place] [address] Social History Tobacco Use Types [...] Coronavirus/COVID-19? No / Unsure 03/22/2022 3:44 AM MOTOR COACH SUPERVISOR documented as of this encounter Progress Notes * Clint Fisher, PAC - 04/19/2022 1:12 PM CST [facility] PROGRESS NOTE Hans Gaytan is a 72 y.o. male at [facility] for rehabilitation. Prior to coming to rehabilitation facility patient was hospitalized at [facility] from 03/22 through 03/31 for influenza a [...] his chair. Says that he is feeling ???good?? . Denies any acute symptoms or concerns. No more GI symptoms. Lab work done yesterday showing that his CO2 levels are elevated. He says he is intermittently compliant with his BiPAP overnight. He denies any shortness of breath or any other respiratory symptoms. Discussed with patient and nursing staff the importance of compliance with his BiPAP and I recommended that he wear it for a couple hours today. Past Medical History Positives Diagnosis Date ??? [...] CENTRAL VENOUS CATHETER N/A 05/13/2019 Procedure: PICC GUEST SERVICES OFFICER; Surgeon: Imaging, [facility]; Location: [facility] CV[facility]; Service: Cardiology ??? CENTRAL VENOUS CATHETER N/A 05/27/2019 Procedure: PICC GUEST SERVICES OFFICER; Surgeon: Imaging, [facility]; Location: [facility]; Service: Cardiology ??? CENTRAL VENOUS CATHETER N/A 03/29/2022 Procedure: PICC GUEST SERVICES OFFICER; Surgeon: Imaging, [facility]; Location: [facility]; Service: Cardiology Review of Systems: A 14 point comprehensive review of systems was negative except what is documented in interval history above. Objective: Exam: Vital Signs: B/P: 121/64 Pulse: 55 Respirations: 16 Temperature: 97.9 General: Well developed, [...] judgement and memory Lab Results: 04/07/2022 in [facility] emergency room, CBC with hemoglobin 10.3, [...] WBC 4.4 otherwise unremarkable. Imaging: None Assessment/Plan: Obstructive sleep apnea Wears BiPAP at night [...] from GI. Will discuss with nursing staff. Episode of nausea and vomiting and diarrhea with hypotension overnight on 04/07 Emergency workup including labs and CT of abdomen were reassuring and patient was sent back to the facility with Zofran. Right great toe cellulitis [place] to be the cause of his sepsis during hospitalization Has completed his course of metronidazole, Levaquin and linezolid Well-healing No signs of infection currently, receiving wound care Generalized weakness and deconditioning Receiving penitentiary care and physical therapy rehabilitation Chronic atrial [...] this patient. This note was dictated using [employer] fluency dictation system and there may be errors in employee benefits coordinator. Despite proof reading the note, there may be mistakes and I apologize for those. By: Clint Fisher, PAC, 04/19/2022 1:12 PM MOTOR COACH SUPERVISOR R COACH SUPERVISOR documented in this encounter Plan of Treatment [...] documented as of this encounter Care Teams Radiologic Technician Relationship Specialty Start Date End Date Jens Olsen MD [address] [place] [address] PCP - General Internal Medicine 03/24/22 Bere Erwin APRN, SHEET METAL DUCT INSTALLER APPRENTICE [address] [place] [address] Nurse Practitioner Advanced Practice Nurse 04/26/22 documented as of this encounter
--- OUTSIDE RECORDS SUMMARY | 2024-03-28 09:33 | XMS_ITS ---
Author Organization [facility] Address Unknown Allergies, Adverse Reactions, Alerts Substance Reaction Status Noted Date Resolved Date Lisinopril active 11/16/2022 Medications Medication Dose Frequency Directions Start Date End Avery e Metoprolol Succinate ER Oral Tablet Extended Release 24 Hour 50 MG 50 mg 24 h Give 50 mg by mout h one time a day for hypertension hypertension 01/13/2023 Furosemide Oral Tablet 40 MG 40 mg 12 h Give 40 mg by mouth two times a day related to ESSENTIAL (PRIMARY) HYPERTENSION (I10) 01/13/2023 dilTIAZem HCl ER Beads Oral Capsule Extended Release 24 Hour 180 MG 180 mg 24 h Give 180 mg by mo uth one time a day for blood pressure 01/13/2023 Albuterol Sulfate Inhalation Nebulization Solution (2.5 MG/3ML) 0.083% 3 mL 8 h 3 ml inhale orally v ia nebulizer three times a day related to CHRONIC OBSTRUCTIVE PULMONARY DISEASE, UNSPECIFIED (J44.9) 01/13/2023 metFORMIN HCl Oral Tablet 500 MG 500 mg 12 h Give 500 mg by mouth two times a day for diabetes mellitus type 2 take medication with meals 01/13/2023 Fexofenadine HCl Oral Tablet 180 MG 180 mg Give 180 mg by mouth every 24 hours as needed for allergies 01/13/2023 Atorvastatin Calcium Oral Tablet 20 MG 20 mg Give 20 mg by mouth at bedtime for cholesterol 01/14/2023 Citroma Solution 1.745 GM/30ML 296 mL Give 296 ml by mouth as needed for constipation In AM if no results after enema. If no results within 1 hour of completion of bowel protocol, contact MD immediately for further orders. 01/13/2023 Aspirin Oral Tablet Chewable 81 MG 81 mg 24 h Give 81 mg by mouth one time a day for Anticoagulation 01/13/2023 Ondansetron HCl Oral Tablet 4 MG 4 mg Give 4 mg by mouth e very 6 hours as needed for nausea 01/13/2023 Eliquis Oral Tablet 5 MG 5 mg 12 h Give 5 mg by mouth t wo times a day for Anticoagulation 01/13/2023 Synthroid Oral Tablet 50 MCG 50 ug Give 50 mcg by mouth in the morning for hypothyroidism 01/13/2023 Fleet Enema 1 Insert 1 applic ation rectally as needed for for constipation If no results 1 day after suppository. 01/13/2023 Milk of Magnesia Suspension 400 MG/5ML 30 mL Give 30 ml by mout h as needed for Constipation at bedtime if not BM in 3 days 01/13/2023 Bisacodyl Suppository 10 MG 1 Insert 1 suppository rectally as needed for for constipation daily if no results for MOM 01/13/2023 Medications Administered Medication Dose Frequency Status Start Date End Date Metoprolol Succinate ER Oral Tablet Extended Release 24 Hour 50 MG 50 mg 24 h Hospitalized 01/16/2023 Furosemide Oral Tablet 40 MG 40 mg 12 h Hospitalize d 01/16/2023 dilTIAZem HCl ER Beads Oral Capsule Extended Release 24 Hour 180 MG 180 mg 24 h Hospitalized Albuterol Sulfate Inhalation Nebulization Solution (2.5 MG/3ML) 0.083% 3 mL 8 h Hospitalized 01/17/2023 metFORMIN HCl Oral Tablet 500 MG 500 mg 12 h Hospita lized 01/16/2023 Fexofenadine HCl Oral Tablet 180 MG 180 mg 01/13/2023 Atorvastatin Calcium Oral Ta blet 20 MG 20 mg Hospitalized 01/17/2023 Citroma Solution 1.745 GM/30ML 296 mL 01/13/2023 Aspirin Oral Tablet Chewable 81 MG 81 mg 24 h Hospi talized 01/16/2023 Ondansetron HCl Oral Tablet 4 MG 4 mg 01/13/2023 Eliquis Oral Tablet 5 MG 5 mg 12 h Hospitalized Synthroid Oral Tablet 50 MCG 50 ug Hospitalize d 01/16/2023 Fleet Enema 1 01/13/2023 Milk of Magnesia Suspension 400 MG/5ML 30 mL 01/13/2023 Bisacodyl Suppository 10 MG 1 Problems Problem Status Start Date End Date CELLULITIS, UNSPECIFIED (Primary) (L03.90 - ICD-10-CM) ACTIVE 01/12/2023 SEPSIS, UNSPECIFIED ORGANISM (Primary) (A41.9 - ICD-10-CM) RESOLVED 11/16/2022 12/12/2022 SEVERE SEPSIS WITHOUT SEPTIC SHOCK (R65.20 - ICD-10-CM) ACTIVE 01/12/2023 CELLULITIS OF LEFT LOWER LIMB (L03.116 - ICD-10-CM) RE SOLVED 11/16/2022 01/12/2023 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) ACTIVE 01/12/2023 ACUTE AND CHRONIC RESPIRATOR Y FAILURE WITH HYPOXIA (J96.21 - ICD-10-CM) RESOLVED 11/16/2022 01/12/2023 TYPE 2 DIABETES MELLITUS WIT H HYPERGLYCEMIA (E11.65 - ICD-10-CM) ACTIVE 01/12/2023 MORBID (SEVERE) OBESITY DUE TO EXCESS CALORIES (E66.01 - ICD-10-CM) RESOLVED 11/16/2022 12/12/2022 TYPE 2 DIABETES MELLITUS WIT H DIABETIC CHRONIC KIDNEY DISEASE (E11.22 - ICD-10-CM) ACTIVE 01/12/2023 BODY MASS INDEX [BMI] 45.0-4 9.9, ADULT (Z68.42 - ICD-10-CM) RESOLVED 11/16/2022 12/12/2022 MORBID (SEVERE) OBESITY DUE TO EXCESS CALORIES (E66.01 - ICD-10-CM) ACTIVE 01/12/2023 TYPE 2 DIABETES MELLITUS WIT H DIABETIC CHRONIC KIDNEY DISEASE (E11.22 - ICD-10-CM) RESOLVED 11/16/2022 12/12/2022 BODY MASS INDEX [BMI] 45.0-4 9.9, ADULT (Z68.42 - ICD-10-CM) ACTIVE 01/12/2023 CHRONIC OBSTRUCTIVE PULMONAR Y DISEASE, UNSPECIFIED (J44.9 - ICD-10-CM) RESOLVED 11/16/2022 12/12/2022 ACUTE RESPIRATORY FAILURE WI TH HYPOXIA (J96.01 - ICD-10-CM) ACTIVE 01/12/2023 LOCAL INFECTION OF THE SKIN AND SUBCUTANEOUS TISSUE, UNSPECIFIED (L08.9 - ICD-10-CM) RESOLVED 11/16/2022 12/13/19 CHRONIC OBSTRUCTIVE PULMONAR Y DISEASE, UNSPECIFIED (J44.9 - ICD-10-CM) ACTIVE 01/12/2023 CHRONIC KIDNEY DISEASE, STAG E 3 UNSPECIFIED (N18.30 - ICD-10-CM) RESOLVED 11/16/2022 12/12/2022 PAROXYSMAL ATRIAL FIBRILLATION (I48.0 - ICD-10-CM) ACT DOMONIQUE 01/12/2023 NON-PRESSURE CHRONIC ULCER O F OTHER PART OF RIGHT FOOT WITH UNSPECIFIED SEVERITY (L97.519 - ICD-10-CM) RESOLVED 11/16/2022 12/12/2022 OBSTRUCTIVE SLEEP APNEA (DANITZA LT) (PEDIATRIC) (G47.33 - ICD-10-CM) ACTIVE 01/12/2023 SCLEROSING MESENTERITIS (K65.4 - ICD-10-CM) RESOLVED 11/16/2022 12/12/2022 CHRONIC KIDNEY DISEASE, STAG E 3 UNSPECIFIED (N18.30 - ICD-10-CM) ACTIVE 01/12/2023 ACUTE KIDNEY FAILURE, UNSPECIFIED (N17.9 - ICD-10-CM) RESOLVED 11/16/2022 12/12/2022 MUSCLE WEAKNESS (GENERALIZED) (M62.81 - ICD-10-CM) RES OLVED 11/16/2022 12/12/2022 OTHER FATIGUE (R53.83 - ICD-10-CM) RESOLVED 202212/12/2022 NEED FOR ASSISTANCE WITH PER DANIEL CARE (Z74.1 - ICD-10-CM) RESOLVED 11/16/2022 12/12/2022 OBSTRUCTIVE SLEEP APNEA (DANITZA LT) (PEDIATRIC) (G47.33 - ICD-10-CM) RESOLVED 11/16/2022 12/12/2022 HYPOTHYROIDISM, UNSPECIFIED (E03.9 - ICD-10-CM) ACTIVE 01/12/2023 HYPERLIPIDEMIA, UNSPECIFIED (E78.5 - ICD-10-CM) ACTIVE 01/12/2023 LOCALIZED SWELLING, MASS AND LUMP, LEFT LOWER LIMB (R22.42 - ICD-10-CM) RESOLVED 11/16/2022 12/12/2022 PAROXYSMAL ATRIAL FIBRILLATION (I48.0 - ICD-10-CM) RES OLVED 11/16/2022 12/12/2022 ESSENTIAL (PRIMARY) HYPERTENSION (I10 - ICD-10-CM) ACT DOMONIQUE 01/12/2023 SCLEROSING MESENTERITIS (K65.4 - ICD-10-CM) ACTIVE 01/12/2023 VITAMIN D DEFICIENCY, UNSPECIFIED (E55.9 - ICD-10-CM) RESOLVED 11/20/2022 12/12/2022 CERVICALGIA (M54.2 - ICD-10-CM) RESOLVED 3 12/12/2022 GASTRO-ESOPHAGEAL REFLUX DIS EASE WITHOUT ESOPHAGITIS (K21.9 - ICD-10-CM) ACTIVE 01/12/2023 PERSONAL HISTORY OF OTHER VE NOUS THROMBOSIS AND EMBOLISM (Z86.718 - ICD-10-CM) ACTIVE 01/12/2023 NON-ST ELEVATION (NSTEMI) MY OCARDIAL INFARCTION (I21.4 - ICD-10-CM) ACTIVE 01/12/2023 CERVICALGIA (M54.2 - ICD-10-CM) ACTIVE 3 UNSPECIFIED HEARING LOSS, UN SPECIFIED EAR (H91.90 - ICD-10-CM) ACTIVE 01/12/2023 UNSPECIFIED HEARING LOSS, UN SPECIFIED EAR (H91.90 - ICD-10-CM) RESOLVED 11/16/2022 12/12/2022 GASTRO-ESOPHAGEAL REFLUX DIS EASE WITHOUT ESOPHAGITIS (K21.9 - ICD-10-CM) RESOLVED 11/16/2022 12/12/2022 HYPERLIPIDEMIA, UNSPECIFIED (E78.5 - ICD-10-CM) RESOLV ED 11/16/2022 12/12/2022 ESSENTIAL (PRIMARY) HYPERTENSION (I10 - ICD-10-CM) RES OLVED 11/16/2022 12/12/2022 HYPERKALEMIA (E87.5 - ICD-10-CM) RESOLVED 11/17/19 23 12/12/2022 PERSONAL HISTORY OF OTHER VE NOUS THROMBOSIS AND EMBOLISM (Z86.718 - ICD-10-CM) RESOLVED 11/16/2022 NON-ST ELEVATION (NSTEMI) MY OCARDIAL INFARCTION (I21.4 - ICD-10-CM) RESOLVED 11/16/2022 12/12/2022 URINARY TRACT INFECTION, SIT E NOT SPECIFIED (N39.0 - ICD-10-CM) RESOLVED 11/16/2022 12/12/2022 Results * CBC W/DIFF Performed by: [place] [address] [facility], [place] [address] [facility] [address] Component Value Range Date HEMOGLOBIN 10.7 g/dL 14.0-18.0 11/17/2022 04:4 4 pm EDT * CMP-COMPREHENSIVE METABOLIC PNL Performed by: [address], [place] [address] Component Value Range Date POTASSIUM 5.4 mEq/L 3.5-5.3 11/17/2022 04:4 4 pm EDT SODIUM 139 mEq/L 136-145 11/17/2022 04:4 4 pm EDT BUN (UREA NITROGEN) 46 mg/dL 7-25 11/18/19 23 04:44 pm EDT CARBON DIOXIDE (CO2) 35 mEq/L 21-33 023 04:44 pm EDT CHLORIDE 100 mEq/L 98-110 11/17/2022 04:4 4 pm EDT * CBC W/DIFF Performed by: [address], [place] [address] Component Value Range Date RBC 3.50 M/cmm 4.00-6.60 11/17/2022 04:4 4 pm EDT MCHC 32.1 g/dL 31.0-36.5 11/17/2022 04:4 4 pm EDT MCH 30.6 pg 26.0-35.0 11/17/2022 04:4 4 pm EDT HEMATOCRIT 33.4 % 42.0-54.0 11/17/2022 04:4 4 pm EDT WBC 7.3 K/cmm 4.5-10.8 11/17/2022 04:4 4 pm EDT * CMP-COMPREHENSIVE METABOLIC PNL Performed by: [address], [place] [address] Component Value Range Date ALT (SGPT) 14 IU/L 4-55 11/17/2022 04:4 4 pm EDT * CBC W/DIFF Performed by: [address], [place] [address] Component Value Range Date PLATELET 148 K/cmm 150-450 11/17/2022 04:4 4 pm EDT * CMP-COMPREHENSIVE METABOLIC PNL Performed by: [address], [place] [address] Component Value Range Date AST (SGOT) 13 IU/L 4-40 11/17/2022 04:4 4 pm EDT ALBUMIN 3.3 g/dL 3.5-5.5 11/17/2022 04:4 4 pm EDT PROTEIN, TOTAL 5.9 g/dL 6.0-8.3 11/17/2022 04 :44 pm EDT ALKALINE PHOS 58 IU/L 34-136 11/17/2022 04: 44 pm EDT * CBC W/DIFF Performed by: [address], [place] [address] Component Value Range Date RDW 15.1 % 11.0-16.0 11/17/2022 04:4 4 pm EDT NEUTROPHILS 77.9 % 40.0-80.0 11/17/2022 04:4 4 pm EDT * CMP-COMPREHENSIVE METABOLIC PNL Performed by: [address], [place] [address] Component Value Range Date DAU-TPZ-HAVADEL 50 mL/min/1.73 m2 >60 11/17/2022 04:44 pm EDT GFR- 60 mL/min/1.73 m2 >60 04:44 pm EDT * CBC W/DIFF Performed by: [address], [place] [address] Component Value Range Date MCV 95.3 fL 80.0-100.0 11/17/2022 04:4 4 pm EDT LYMPHS (ABSOLUTE) 0.80 K/uL 0.90-5.50 11/17/2022 04:44 pm EDT MONOCYTES 8.7 % 2.0-12.0 11/17/2022 04:4 4 pm EDT LYMPHS 11.5 % 13.0-48.0 11/17/2022 04:4 4 pm EDT BASO 0.2 % 0.0-2.0 11/17/2022 04:4 4 pm EDT EOS 1.7 % 0.0-8.0 11/17/2022 04:4 4 pm EDT NEUTS (ABSOLUTE) 5.70 K/uL 1.50-7.60 11/17/2022 04:44 pm EDT * PROTIME-INR Performed by: [address], [place] [address] Component Value Range Date PROTIME 10.6 sec 9.8-12.2 11/17/2022 04:4 4 pm EDT * CBC W/DIFF Performed by: [address], [place] [address] Component Value Range Date EOS (ABSOLUTE) 0.10 K/uL 0.20-0.80 11/17/2022 04 :44 pm EDT MONOCYTES (ABSOLUTE) 0.60 K/uL 0.15-1.10 023 04:44 pm EDT * PROTIME-INR Performed by: [address], [place] [address] Component Value Range Date INR 1.0 0.9-1.2 11/17/2022 04:4 4 pm EDT * CMP-COMPREHENSIVE METABOLIC PNL Performed by: [address], [place] [address] Component Value Range Date BUN/CREATININE RATIO 33 6-25 023 04:44 pm EDT A/G RATIO 1.3 0.8-2.0 11/17/2022 04:4 4 pm EDT * GLYCO-HGBA1C Performed by: [address], [place] [address] Component Value Range Date GLYCOHEMOGLOBIN-HGBA1C 7.1 % 4.1-6.1 11/17 04:44 pm EDT * Individual Tests: CMP-COMPREHENSIVE METABOLIC PNL / LIPID PROFILE w/calc LDL / GLYCO-HGBA1C / CBC W/DIFF / PROTIME-INR / TSH 3-UL / T4, FREE / VITAMIN D 25- OH TOTAL Performed by: [address], [place] [address] Component Value Range Date TSH 3-UL 3.457 uIU/mL 0.340-5.500 11/17/2022 04:4 4 pm EDT * CBC W/DIFF Performed by: [address], [place] [address] Component Value Range Date MPV 8.9 fL 6.5-12.0 11/17/2022 04:4 4 pm EDT NUCLEATED RBC 0.1 NRBC/100 WBC <1.0 11/17/2022 04:44 pm EDT * CMP-COMPREHENSIVE METABOLIC PNL Performed by: [address], [place] [address] Component Value Range Date CREATININE 1.4 mg/dL 0.7-1.3 11/17/2022 04:4 4 pm EDT GLUCOSE 130 mg/dL 11/17/2022 04:4 4 pm EDT CALCIUM 9.3 mg/dL 8.6-10.3 11/17/2022 04:4 4 pm EDT BILIRUBIN, TOTAL 0.2 mg/dL 0.2-1.2 11/17/2022 04:44 pm EDT * LIPID PROFILE w/calc LDL Performed by: [address], [place] [address] Component Value Range Date CHOLESTEROL 123 mg/dL <200 11/17/2022 04:4 4 pm EDT TRIGLYCERIDE 102 mg/dL <150 11/17/2022 04:4 4 pm EDT HDL 27 mg/dL >40 11/17/2022 04:4 4 pm EDT LDL CALCULATED 76 mg/dL <100 11/17/2022 04 :44 pm EDT * Individual Tests: CMP-COMPREHENSIVE METABOLIC PNL / LIPID PROFILE w/calc LDL / GLYCO-HGBA1C / CBC W/DIFF / PROTIME-INR / TSH 3-UL / T4, FREE / VITAMIN D 25- OH TOTAL Performed by: [address], [place] [address] Component Value Range Date T4, FREE 0.77 ng/dL 0.6-1.7 11/17/2022 04:4 4 pm EDT * LIPID PROFILE w/calc LDL Performed by: [address], [place] [address] Component Value Range Date LDLc/HDL RATIO 2.8 <4:1 11/17/2022 04 :44 pm EDT * GLYCO-HGBA1C Performed by: [address], [address] [address] Component Value Range Date eAG (Mean Glucose) 157 mg/dL <136 04:44 pm EDT * LIPID PROFILE w/calc LDL Performed by: [place] [address] [facility] [address], [place] [address] [facility] [address] Component Value Range Date VLDLc 20 mg/dL 5-40 11/17/2022 04:4 4 pm EDT * Individual Tests: CMP-COMPREHENSIVE METABOLIC PNL / LIPID PROFILE w/calc LDL / GLYCO-HGBA1C / CBC W/DIFF / PROTIME-INR / TSH 3-UL / T4, FREE / VITAMIN D 25- OH TOTAL Performed by: [place] [address] [facility] [address], [facility] [address] [facility] [address] Component Value Range Date VITAMIN D 25-OH TOTAL 22 ng/mL 30-100 2022 04:44 pm EDT Encounters Encounter Performer Performer Role Encounter Diagnoses Location Date Discharge - Discharged to home or self care - Other - Private home/apt. with home health services [facility] 11/16/2022 08:13 pm EDT - 12/12/2022 03:30 pm EDT Discharge - Discharged / Transferred to another [facility] 01/12/2023 11:07 pm EST - 01/13/2023 01:00 pm EST Reason For Referral Unknown Immunizations Vaccine Date Flucelvax (Influenza vaccine) Social History
--- OUTSIDE RECORDS SUMMARY | 2024-03-28 09:33 | XMS_ITS | Encounter Summary ---
Author Organization [facility] Address [address] [place] [address] Phone Care Team Providers Care Hand Umbrella Tipper Name Role Phone Jens Olsen MD Primary Care Provider [phone] Bere Erwin APRN, CHARGE ENTRY CLERK Unavailable Encounter Details Date Type Department Care Team (Late st Contact Info) Description 04/26/2022 Nursing Facility [facility] [address] [place] [address] Clint Fisher, [address] [address] Social History Tobacco Use Types Packs/Day Years Used Date Smoking Tobacco: Former Cigarettes Q uit: 03/16/1979 Smokeless Tobacco: Never Alcohol Use Standard Drinks/Week Comments Not Currently 0 (1 standard drink = 0.6 oz pur e alcohol) Sexually Active Control Partners Comments Not Currently [...] suspected to have Coronavirus/COVID-19? No / Unsure 04/26/2022 2:07 PM CDT documented as of this encounter Progress Notes * [place], PAC - 04/26/2022 2:31 PM CDT [facility] NURSING PROGRESS NOTE Hans Gaytan is a 72 y.o. male at [facility] for rehabilitation. Prior to coming to rehabilitation facility patient was hospitalized at [facility] from 03/22 through 03/31 for [...] Says that he is feeling ???okay?? . Overall he is feeling well. Makes note that his legs have been feeling weak. My exam today of his legs are reassuring and this is likely fatigue from his rehabilitation. Denies any GI symptoms or any acute pain or any other acute concerns. Nursing staff has no concerns about the patient. Has appointment GI later today for his suspected recent upper GI bleed. Past Medical History Positives Diagnosis Date ??? [...] CENTRAL VENOUS CATHETER N/A 05/13/2019 Procedure: PICC CIVIL ENGINEERING MANAGER; Surgeon: Imaging, Sahc Invasive; Location: [facility]; Service: Cardiology ??? CENTRAL VENOUS CATHETER N/A 05/27/2019 Procedure: PICC CIVIL ENGINEERING MANAGER; Surgeon: Imaging, Sahc Invasive; Location: [facility]; Service: Cardiology ??? CENTRAL VENOUS CATHETER N/A 03/29/2022 Procedure: PICC CIVIL ENGINEERING MANAGER; Surgeon: Imaging, Sahc Invasive; Location: [facility]; Service: Cardiology Review of Systems: A 14 point comprehensive review of systems was negative except what is documented in interval history above. Objective: Exam: Vital Signs: B/P: 136/73 Pulse: 86 Respirations: 22 Temperature: 97.2 General: Well developed, well nourished, in no [...] judgement and memory Lab Results: 04/07/2022 in [facility] emergency room, CBC with hemoglobin [...] with hemoglobin 11.4, WBC 4.4 otherwise unremarkable. 04/25/2022: BMP with glucose of 136, chloride 91, CO2 39, creatinine 1.7 otherwise unremarkable. Magnesium within normal limits. Imaging: None Assessment/Plan: Generalized weakness and deconditioning Receiving care home care and physical therapy rehabilitation 04/22: Improving [...] long going forward. Lab redraw scheduled for 04/25/202204/26: CO2 levels trending down. He Acute GI bleeding 04/08: Highly suspicious for [...] facility with Zofran. Right great toe cellulitis [place] to be the cause of his sepsis [...] this patient. This note was dictated using Sendia fluency dictation system and there may be errors in it corporate recruiter. Despite proof reading the note, there may be mistakes and I apologize for those. By: TAMMI Estrada, 04/26/2022 2:31 PM CDT documented in this encounter Plan of Treatment [...] documented as of this encounter Care Teams Hand Umbrella Tipper Relationship Specialty Start Date End Date Jens Olsen MD [address] [place] [address] PCP - General Internal Medicine 03/24/22 Bere Erwin APRN, CHARGE ENTRY CLERK [address] [place] [address] Nurse Practitioner Advanced Practice Nurse 04/26/22 documented as of this encounter
--- OUTSIDE RECORDS SUMMARY | 2024-03-28 09:33 | XMS_ITS | Encounter Summary ---
Author Name [facility] [place] [facility] [place] [facility] [place] [facility] [place] Address [address] [place] [address] Care Team Providers Care Socially Responsible Investment Adviser Name Role Phone SHANTE TINSLEY Primary Care Provider Unavail le Insurance Providers: All historical and current Section [...] PART A Jan 13, 2014 PART A [id number] [phone] Chaz LINARES PATIENT MEDICARE (WNR) MEDICARE (M) PART B Jan 13, 2014 PART B [id number] Chaz LINARES PATIENT [facility] (WNR) MEDICARE ADVANTAGE [facility] (WNR) Apr 13, 2021 [id number] Chaz LINARES PATIENT Selected Encounter This section includes the information on record at [place] for the Encounter. Date/Time Encounter Type Encounter Description Reason Provider Source Sep 27, 2023 10:00 AM OFFICE O/P EST MOD 30 MIN PRIMARY CARE/MEDICINE ICD-10-CM I10 Essential (primary) hypertension ENDY TINSLEY Encounter Template Text not used by [facility] Assessments - Encounter Diagnoses This section includes the primary and secondary diagnoses documented for the Encounter. Date/Time Primary/Secondary Diagnosis Diagnosis Name Provider Source Sep 27, 2023 10:49 AM PRIMARY Essential (primary) hypertension RADHA TINSLEY [facility] Sep 27, 2023 10:49 AM SECONDARY Cerebral infarction, unspecified RADHA TINSLEY [facility] Sep 27, 2023 10:49 AM SECONDARY Disorder of kidney and ureter, unspecified RADHA TINSLEY [facility] Sep 27, 2023 10:49 AM SECONDARY Hyperlipidemia, unspecified RADHA TINSLEY [facility] Sep 27, 2023 10:49 AM SECONDARY Hypothyroidism, unspecified RADHA TINSLEY [facility] Sep 27, 2023 10:49 AM SECONDARY prison (current) use of anticoagulants RADHA TINSLEY [facility] Sep 27, 2023 10:49 AM SECONDARY Morbid (severe) obesity due to excess calories ARDHA TINSLEY [facility] Sep 27, 2023 10:49 AM SECONDARY Obstructive sleep apnea (adult) (pediatric) RADHA TINSLEY [facility] Sep 27, 2023 10:49 AM SECONDARY Type 2 diabetes mellitus without complications RADHA TINSLEY [facility] Sep 27, 2023 10:49 AM SECONDARY Unspecified abdominal pain RADHA TINSLEY [facility] Sep 27, 2023 10:49 AM SECONDARY Unspecified atrial fibrillation RADHA TINSLEY [facility] Plan of Treatment: Future Appointments (+ 6 months) and Future Tests (+/- 45 days) The Plan of Treatment section includes future care activities for the [facility] [place] [facility] This section includes future appointments and future orders which are active, pending or scheduled. Active, Pending, and Scheduled Orders This section includes a listing of several types of active, pending, and scheduled orders, including clinic medications orders, diagnostic test orders, procedure orders and consult orders; where the start date of the order is 45 days before the date of the Encounter or 45 days after the date of theEncounter. The data comes from all [place] treatment facilities. Test Date/Time Test Type Test Details Facility Name Sep 27, 2023 12:00 AM Laboratory - Chemi stry Order TSH W/ REFLEX FT4 (STL) GREEN LI-HEP PLASMA SP [facility] Sep 27, 2023 12:00 AM Laboratory - Chemi stry Order VITAMIN D, 25-HYDROXY GOLD/RED SST SERUM SP [facility] Sep 27, 2023 12:00 AM Laboratory - Chemi stry Order LIPID PANEL (STL) GREEN LI/HEP BLD/PLAS PLASMA SP ONCE [facility] Sep 27, 2023 12:00 AM Laboratory - Chemi stry Order CBC BLOOD SP [facility] Sep 27, 2023 12:00 AM Laboratory - Chemi stry Order HGA1C BLOOD SP [facility] Sep 27, 2023 12:00 AM Laboratory - Chemi stry Order COMPREHENSIVE METABOLIC PANEL GREEN LI/HEP BLD/PLAS PLASMA SP [facility] Sep 27, 2023 12:00 AM Laboratory - Chemi stry Order IRON/TIBC PROFILE GOLD/RED SST SERUM SP [facility] Sep 27, 2023 12:00 AM Laboratory - Chemi stry Order BRAIN NATRIURETIC PEPTIDE LAVENDER BLOOD PLASMA SP [facility] Sep 27, 2023 12:00 AM Laboratory - Chemi stry Order B12 GOLD/RED SST SERUM SP [facility] Sep 27, 2023 12:00 AM Laboratory - Chemi stry Order PROST. SPECIFIC AG.(PB-STL) GOLD/RED SST SERUM SP [facility] Social History: Smoking Status (Most current) and Tobacco Use (All prior to encounter date) This section includes the most current, and the historical, smoking and tobacco- related health factors from the [place] facility where the Encounter took place. Current Smoking Status This section includes the most current smoking, or tobacco-related health factor, from the [place] facility where the Encounter took place. Date/Time Current Smoking Status Comment Facil ity May 31, 2023 11:30 AM [place]-TOBACCO NEVER USED [facility] Tobacco Use History This section includes a history of the smoking, or tobacco-related health factors, that were collected on or before the date of the Encounter. The data comes from the [place] facility where the Encounter took place. Date/Time Smoking Status/Tobacco Use Comment F acility Jan 20, 2022 11:30 AM [facility]BACCO [facility] Oct 12, 2020 02:30 PM VA-TOBACCO FORMER USER [facility] Oct 12, 2020 02:30 PM VA-TOBACCO QUIT 15 YRS OR MORE [facility] Oct 23, 2019 02:00 PM VA-TOBACCO FORMER USER [facility] Oct 23, 2019 02:00 PM VA-TOBACCO QUIT 15 YRS OR MORE [facility] Mar 22, 2018 02:38 PM VA-TOBACCO FORMER USER [facility] Mar 22, 2018 02:38 PM VA-TOBACCO QUIT 15 YRS OR MORE [facility] Apr 24, 2017 01:40 PM QUIT TOBACCO >7 YEARS AGO [facility] Aug 25, 2016 11:27 AM QUIT TOBACCO >7 YEARS AGO [facility] Feb 16, 2016 10:24 AM QUIT TOBACCO >7 YEARS AGO [facility] Feb 02, 2015 09:42 AM QUIT TOBACCO >7 YEARS AGO [facility] Encounter Notes: All associated encounter notes This section contains the clinical notes associated to the Encounter. Date/Time Encounter Note(s) Provider Source Oct 10, 2023 08:18 AM ADMINISTRATIVE NOT E: LOCAL TITLE: ADMINISTRATIVE STL STANDARD TITLE: ADMINISTRATIVE NOTE DATE OF NOTE: OCT 10, 2023@08:18 ENTRY DATE: OCT 10, 2023@08:18:27 AUTHOR: SHANTE TINSLEY EXP COSIGNER: URGENCY: STATUS: COMPLETED recieved a call from [facility] re: er visit (per their records [facility]) pt lives in [facility] please get records from [facility] er visit. /paul/ SHANTE TINSLEY MD STAFF PHYSICIAN Signed: 10/10/2023 08:19 Receipt Acknowledged By: 10/19/2023 13:37 /NICOLÁS Tamayo,RN REGISTERED NURSE SHANTE TINSLEY [facility] Sep 27, 2023 10:04 AM TELEHEALTH NOTE: LOCAL TITLE: PRIMARY CARE VIDEO CONNECT STL STANDARD TITLE: TELEHEALTH NOTE DATE OF NOTE: SEP 27, 2023@10:04 ENTRY DATE: SEP 27, 2023@10:04:49 AUTHOR: SHANTE TINSLEY EXP COSIGNER: URGENCY: STATUS: COMPLETED PRIMARY CARE VIDEO CONNECT STL Has ADDENDA ESTABLISHED PATIENT VIDEO: REASON FOR VISIT/CHIEF COMPLAINT: HPI: pt states he has a hard time breathing. back on oxygen again. pt was back in [facility] in [place] on steroids had chf? fluid on his lungs per pt hx SODIUM 137 136 - 145 mmol/L 09/19/2023 POTASSIUM 5.8 (H) 3.5 - 5.1 mmol/L 09/19/2023 CHLORIDE 102 98 - 107 mmol/L 09/19/2023 CO2, VENOUS 31 (H) 22 - 30 mmol/L 09/19/2023 ANION GAP 9.8 <18.0 mmol/L 09/19/2023 GLUCOSE 121 (H) 70 - 99 mg/dL 09/19/2023 BUN 29 (H) 8 - 26 mg/dL 09/19/2023 CREATININE, BLOOD 1.70 (H) 0.70 - 1.30 mg/dL 09/19/2023 BUN/CREATININE RATIO 17 12 - 20 ratio TOTAL PROTEIN 7.2 6.3 - 8.2 g/dL 09/19/2023 ALBUMIN 3.6 3.5 - 5.0 g/dL 09/19/2023 A/G RATIO 1.0 1.0 - 2.2 09/19/2023 6:56 PM CDT CALCIUM 9.6 8.7 - 10.5 mg/dL 09/19/2023 T BILI 0.6 0.2 - 1.2 mg/dL 09/19/2023 SGOT (AST) 13 5 - 34 U/L 09/19/2023 SGPT (ALT) 12 0 - 55 U/L 09/19/2023 ALKALINE PHOSPHATASE 76 40 - 150 U/L 09/19/2023 GFR, ESTIMATED 42 (L) >=60 09/19/2023 cbc: WBC 6.86 4.00 12.00 10(3)/mcL RBC 4.54 4.40 - 5.80 10(6)/mcL HEMOGLOBIN (HGB) 12.9 (L) 13.0 - 16.5 g/dL HEMATOCRIT (HCT) 42.6 38.0 - 50.0 % MCV 93.8 82.0 - 96.0 fL MCH 28.4 26.0 - 32.0 pg MCHC 30.3 (L) 31.0 - 36.0 g/dL PLATELET COUNT 170 140 - 440 10(3)/mcL RDW 14.4 11.8 - 15.5 % NEUTROPHILS 68.2 (H) 40.0 - 68.0 % LYMPHOCYTES 19.8 19.0 - 49.0 % EXAM DESCRIPTION: XR CHEST SINGLE VIEW PORTABLE REASON FOR STUDY: pt has chronic SOB but seem to be worse today. pt patel any other complains. pt is former smoker has hx of a-fib and HTN TECHNIQUE: Single radiographic view(s) of the chest. COMPARISON: 01/07/2023 FINDINGS: LUNGS: Chronic lung changes are noted. Allowing for overlying soft tissues, the lungs appear grossly clear. No consolidation or effusion is seen. HEART/MEDIASTINUM: Cardiac silhouette normal in size. Mediastinal and hilar contours appear normal. LINES/TUBES: None. BONES: No acute osseous abnormality. EXTERNAL EKG - 09/20/2023 1:38 PM CDT Atrial fibrillation Left axis deviation Left ventricular hypertrophy with QRS widening ( R in aVL , Prabhu product ) Abnormal QRS-T angle, consider primary T wave abnormality Abnormal ECG When compared with ECG of 08-JAN-2023 22:22, Left bundle branch block is no longer present Confirmed by Brennon Mijares ([id number]) on 09/20/2023 1:38:31 PM -------- his foot is reportedly doing fine. he has appt w podiatry in [place] (fu outside ne due to obesity and debility) WHAT IS YOUR GOAL FOR TODAY? SOURCE(S) OF HISTORY: Patient PAST MEDICAL HISTORY: 1) Benign essential hypertension 2) Atrial fibrillation 3) Hyperlipidemia 4) Obstructive sleep apnea syndrome 5) Cervicalgia 6) Difficulty hearing 7) Therapeutic drug level 8) Anticoagulant effect 9) Diabetes Mellitus Type 2 ([facility] [id number]) 10) Sclerosing mesenteritis 11) CAD - Coronary Artery Disease ([facility] [id number]) 12) Renal Impairment ([facility] [id number]) 13) Morbid obesity ([facility] [id number]) 14) Cerebral infarction 15) Hypothyroidism ([facility] [id number]) SOCIAL HISTORY: NICOTINE:quit 40 yrs ago ILLICIT DRUGS:none ALCOHOL:none ALLERGIES: LISINOPRIL ALLERGY REVIEW: Allergy list reviewed and remains current. MEDICATIONS: Active and Recently Outpatient Medications (excluding Supplies): Active Outpatient Medications Status 1) APIXABAN 5MG TAB TAKE ONE TABLET BY MOUTH TWICE A DAY ACTIVE FOR ANTICOAGULATION 2) ATORVASTATIN CALCIUM 40MG TAB TAKE ONE-HALF TABLET BY ACTIVE MOUTH EVERY EVENING FOR HIGH CHOLESTEROL 3) CHOLECALCIF 50MCG (D3-2,000UNIT) TAB TAKE TWO TABLETS ACTIVE BY MOUTH ONCE A DAY FOR VITAMIN D DEFICIENCY. 4) LEVOTHYROXINE NA (SYNTHROID) 50MCG TAB TAKE ONE ACTIVE TABLET BY MOUTH EVERY MORNING BEFORE A MEAL FOR THYROID. TAKE 30 MINUTES BEFORE FOOD. TAKE SEPARATELY FROM ALL OTHER MEDICATIONS. 5) METFORMIN HCL 500MG 24HR SA TAB TAKE ONE TABLET BY ACTIVE MOUTH ONCE A DAY FOR BLOOD SUGAR CONTROL. TAKE WITH FOOD. AVOID ALCOHOL. DISCONTINUE BEFORE GETTING XRAY DYE. 6) METOPROLOL TARTRATE 100MG TAB TAKE ONE-HALF TABLET BY ACTIVE MOUTH TWICE A DAY FOR HEART/BLOOD PRESSURE. TAKE WITH OR IMMEDIATELY FOLLOWING FOOD. 7) MUPIROCIN 2% OINT APPLY LIGHTLY TO AFFECTED AREA(S) ACTIVE TWICE A DAY EXTERNAL USE ONLY. APPLY TO TOE 8) NYSTATIN 448875 UNT/GM OINT APPLY LIGHTLY TO AFFECTED ACTIVE AREA(S) THREE TIMES A DAY - TOPICAL USE ONLY. 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 Handwritten corrections, additions and/or deletions were made to the list. Corrected Outpatient Medication List was provided to the patient/caregiver. REVIEW OF SYSTEMS: General: Normal Ears, Nose, Mouth, Throat: Normal Eye: Normal Cardiovascular: Normal Respiratory: Normal ABD/GI: Normal Musculoskeletal/Extremities: Normal /LEAD TECHNOLOGIST IN CYTOGENETICS: Normal Hematology & Lymph: Normal Endocrine: Normal Skin: Normal VITALS (most recent, as listed in the electronic record): Temperature: 97.2 F [36.2 C] (06/08/2022 10:01) BP: 130/78 (06/08/2022 10:01) Pulse: 113 (06/08/2022 10:01) Resp: 20 (06/08/2022 10:01) PulsOx: 90% (06/08/2022 10:01) Pain: 0 (06/08/2022 10:01) Weight: No data available for: WEIGHT General exam: pt awake alert and oriented. Speech and affect were normal slurred speech. Head: normocephalic. Eyes: nl eye movement Nose: wnl to limited exam Pt was not SOB, did not appear in acute pain or distress. Pscyh: nl affect. DATA REVIEW: HGA1C 7.2 H % 05/11/2021 14:29 HGA1C 7.6 H % 10/12/2020 12:25 HGA1C 6.4 H % 04/21/2020 12:06 HGA1C 6.8 H % 10/23/2019 13:38 HGA1C 7.0 H % 10/04/2018 08:13 Lipid Panel: No LIPID PANEL EO data found CMP: No COMPREHENSIVE METABOLIC PANEL EO data found CBC: No CBC EO data found PROST. SPECIFIC AG.(PB-STL) 0.916 ng/mL 05/11/2021 14:29 PROST. SPECIFIC AG.(PB-STL) 1.295 ng/mL 10/12/2020 12:25 PROST. SPECIFIC AG.(PB-STL) 1.377 ng/mL 10/23/2019 13:38 TSH: No TSH (1YR) EO data found VITAMIN D, 25-HYDROXY 38.0 ng/mL 05/11/2021 14:29 VITAMIN D, 25-HYDROXY 23.7 L ng/mL 10/12/2020 12:25 VITAMIN D, 25-HYDROXY 22.2 L ng/mL 04/21/2020 12:06 INR: No INR EO data found UA: No URINALYSIS EO data found IM - IMMUNIZATIONS ADMINISTERED Immunization Series Date Facility Reaction Info COVID-19 (MODERNA), MRNA, LNP-S,* 2 [facility] <C> COVID-19 (MODERNA), MRNA, LNP-S,* 1 10/12/2020 [facility] <C> INFLUENZA, HIGH-DOSE, QUADRIVALE* 2 12/07/2021 [facility] INFLUENZA, HIGH-DOSE, TRIVALENT,* 12/25/2017 [facility] <C> INFLUENZA, SPLIT VIRUS, QUADRIVA* 12/11/2018 [facility] INFLUENZA, SPLIT VIRUS, QUADRIVA* 03/31/2017 [facility] INFLUENZA, SPLIT VIRUS, TRIVALEN* 02/16/2016 [facility] <C> INFLUENZA, SPLIT VIRUS, TRIVALEN* 1 02/27/2013 [facility] INFLUENZA, UNSPECIFIED FORMULATI* 10/14/2014 Private P* PNEUMOCOCCAL CONJUGATE PCV 13 02/02/2015 [facility] PNEUMOCOCCAL POLYSACCHARIDE PPV23 02/16/2016 [facility] TDAP 02/02/2015 [facility] <C> ZOSTER LIVE 03/05/2015 [facility]* ZOSTER RECOMBINANT 2 01/20/2022 [facility]* ZOSTER RECOMBINANT 1 09/21/2018 [facility] CONTRAINDICATED No data available REFUSED ======= No data available <C> See the Detailed Immunizations Health Summary Component[DIM] for Comments * Value is truncated; see the Detailed Immunizations Health Summary Component[DIM] for complete text ST - SKIN TESTS No data available Result: Acceptable Follow-up Action: Re check prior to next visit. Data results reviewed with patient and/or caregiver. ASSESSMENT/PLAN: 1. a fib stable. 2. chf cct back on oxygen ? possible pickwickian syndrome. 3. hld cct renew meds 4. cva no change dysarthric speech 5. morbid obesity declines move program 6. dm check a1c 7. elbow pain rule out gout. check uric acid 8. ckd cct 9. anemia cct 10. anticoagulated. no bleeding issues hg stable from 09/19/23. 11. foot ulcer pt to fu with outside clipper machine operator tomorrow per pt hx SUMMARY STATEMENT: Plan of care has been discussed with including expected therapeutic benefits and potential side effects of prescribed medication and treatments. verbalizes understanding and is in agreement with the plan of care. Patient was instructed to keep all scheduled appointments and contact nutter up for any additional problems. PREVENTION & SCREENING: ALCOHOL: Clinical Reminder not due now or within a month COLORECTAL CANCER: Clinical Reminder not due now or within a month BLOOD PRESSURE: Clinical Reminder not due now or within a month HEMOGLOBIN A1C: Clinical Reminder not due now or within a month COVID-19 Immunization: Virtual/Telehealth Visit - Patient educated on the need for receiving COVID-19 (SARS-CoV-2) immunization either at [facility] or outside facility. Influenza Immunization: No influenza vaccination was received during the recent influenza season. Ischemic HD/Post IA Follow Up: Aspirin is contraindicated for the following reason(s): taking warfarin/coumadin Learning Assessment: V15-[facility] Video Connect/Video to Home: [facility] Video Connect (VVC)/Video to home template v1.5 Visit conducted by synchronous telehealth. [facility] Location/emergency number confirmed. Environment surveyed and all participants identified. Virtual conference room locked. VVC/Video to home appointment information: The following items were reviewed: - The nature of telehealth, its benefits, and risks. - Confidentiality and its limits. - The importance of having a confidential location for the service. - The emergency plan. - The appointment should be treated like an in person appointment (no smoking or driving during session, showing up fully dressed, etc.) *The Virtual Medical Room was locked for this encounter. *A survey of the environment was conducted and it is appropriate to conduct a VVC appointment. *Confirmed [facility] Non-[facility] location for this appointment: [facility] [place], [place] [address] Address and phone number verified with [facility]. Address: Phone: Emergency Contact: Name: Phone: * was notified of right to decline Telehealth services and eligibility for other options. consented to be seen via VVC. EMERGENCY PLAN In the event of an emergency, the or family will call emergency services, if capable. The Teleprovider will remain in the virtual medical room until emergency response arrives and handoff to emergency services is complete. If [facility] is unable to make emergency call, the Teleprovider is to call the national E911 service at [phone] and ask to be connected to emergency services for the 's location. 's Crisis Line: Dial 988 then press 1, or text [phone] Office of Connected Care Helpdesk ([facility]): [phone] or [phone] Verified Provider's location and contact information for this appointment: Other Location home Phone: /es/ SHANTE TINSLEY MD STAFF PHYSICIAN Signed: 09/27/2023 10:49 10/04/2023 ADDENDUM STATUS: COMPLETED meds per [facility] er: 09/19/23: albuterol (PROVENTIL, VENTOLIN) (2.5 MG/3ML) 0.083% Nebulizer Soln Indications: Chronic obstructive pulmonary disease, unspecified COPD type (HCC) 3 mL by Nebulization route 3 times daily. 360 mL 05/28/2019 apixaban (ELIQUIS) 5 MG Tablet Indications: History of Thromboembolic Disease Take 1 Tablet by mouth 2 times daily. Indications: History of Disease involving a Thrombosis or an Embolism 180 Tablet 04/07/2022 aspirin 81 MG Chewable Tablet Take 81 mg by mouth daily. atorvastatin (LIPITOR) 20 MG Tablet Take 20 mg by mouth daily. bisacodyl 10 MG Suppository 1 Suppository by Rectal route daily as needed for Constipation - 2nd line (constipation). 10 Suppository 05/28/2019 dilTIAZem (CARDIZEM CD) 180 MG CAPSULE SR 24 HR Take 1 Capsule by mouth daily. 90 Capsule 11/17/2022 fexofenadine (AMA) 180 MG Tablet Take 180 mg by mouth daily as needed for Allergies. furosemide (LASIX) 40 MG Tablet Take 40 mg by mouth 2 times daily. 12/07/2021 levothyroxine (SYNTHROID) 50 MCG Tablet Take 50 mcg by mouth every morning (before breakfast). 11/30/2021 metFORMIN (GLUCOPHAGE-XR) 500 MG TABLET SR 24 HR Take 500 mg by mouth 2 times daily (with meals). 05/02/2021 metoprolol Succinate (TOPROL-XL) 50 MG TABLET SR 24 HR Take 1 Tablet by mouth daily. 90 Tablet 04/01/2022 ondansetron (ZOFRAN-ODT) 4 MG TABLET DISPERSIBLE Take 1 Tab by mouth every 6 hours as needed for Nausea - 1st line. 10 Tab 05/28/2019 pantoprazole (PROTONIX) 40 MG Tablet Delayed Response Take 1 Tablet by mouth daily. 30 Tablet 11/16/2022 polyethylene glycol (GLYCOLAX, MIRALAX) Pack Take 1 Packet by mouth daily. Dissolve in 4-8 oz of liquid. 90 Packet 05/29/2019 /es/ SHANTE TINSLEY MD STAFF PHYSICIAN Signed: 10/04/2023 21:[address] [facility]
--- OUTSIDE RECORDS SUMMARY | 2024-03-28 09:33 | XMS_ITS | Encounter Summary ---
Author Organization [facility] Address [address] [place] [address] Phone Care Team Providers Care Rn Teacher Name Role Phone Jens Olsen MD Primary Care Provider Bere Erwin APRN, CUSTOMER SOLUTIONS ARCHITECT Unavailable Encounter Details Date Type Department Care Team (Late st Contact Info) Description 04/12/2022 Nursing Facility [facility] [address] [place] [address] Clint Fisher, PAC [address] [place] [address] Social History Tobacco Use Types [...] Coronavirus/COVID-19? No / Unsure 03/22/2022 3:44 AM CARE AIDE documented as of this encounter Progress Notes * Clint Fisher, PAC - 04/12/2022 1:09 PM CST [facility] PROGRESS NOTE Hans Gaytan is a 72 y.o. male at [facility] for rehabilitation. Prior to coming to rehabilitation facility patient was hospitalized at [facility] from 03/22 through 03/31 for influenza a [...] History: Patient sitting comfortably in his chair. He says he is feeling nauseated. Has been feeling this way since yesterday. He has not had any vomiting. He is having continued epigastric discomfort. Deniesany diarrhea. Last bowel movement was this morning. He just had breakfast and ate most of the food on his plate. Lab work drawn yesterday was reassuring. Nursing staff has no acute concerns otherwise. Past Medical History Positives Diagnosis Date ??? [...] CENTRAL VENOUS CATHETER N/A 05/13/2019 Procedure: PICC FIELD ARTILLERY TARGETING TECHNICIAN; Surgeon: Imaging, Sahc Invasive; Location: [facility]; Service: Cardiology ??? CENTRAL VENOUS CATHETER N/A 05/27/2019 Procedure: PICC FIELD ARTILLERY TARGETING TECHNICIAN; Surgeon: Imaging, Sahc Invasive; Location: [facility]; Service: Cardiology ??? CENTRAL VENOUS CATHETER N/A 03/29/2022 Procedure: PICC FIELD ARTILLERY TARGETING TECHNICIAN; Surgeon: Imaging, Sahc Invasive; Location: [facility]; Service: Cardiology Review of Systems: A 14 point comprehensive review of systems was negative except what is documented in interval history above. Objective: Exam: Vital Signs: B/P: 121/64 Pulse: 88 Respirations: 16 Temperature: 97.9 General: Well developed, [...] judgement and memory Lab Results: 04/07/2022 in [facility] emergency room, CBC with hemoglobin 10.3, [...] remains stable clinically. Redraw ordered for MondayApril 18 Episode of nausea and vomiting and diarrhea with hypotension overnight on 04/07 Emergency workup including labs and CT of abdomen were reassuring and patient was sent back to the facility with Zofran. Right great toe cellulitis Chapman to be the cause of his sepsis during hospitalization Has completed his course of metronidazole, Levaquin and linezolid Well-healing No signs of infection currently, receiving wound care Generalized weakness and deconditioning Receiving care home care and physical therapy rehabilitation Chronic atrial [...] system and there may be errors in tafe registrar. Despite proof reading the note, there may be mistakes and I apologize for those. By: TAMMI Estrada, 04/12/2022 1:10 PM CARE AIDE AIDE documented in this encounter Plan of Treatment [...] as of this encounter Care Teams Rn Teacher Relationship Specialty Start Date End Date Jens Olsen MD [address] [place] [address] PCP - General Internal Medicine 03/24/22 Bere Erwin APRN, CUSTOMER SOLUTIONS ARCHITECT [address] [place] [address] Nurse Practitioner Advanced Practice Nurse 04/26/22 documented as of this encounter
--- OUTSIDE RECORDS SUMMARY | 2024-03-28 09:33 | XMS_ITS | Clinical Summary ---
Author Organization [facility] Address [address] 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 This disclosure is being madepursuant to the Care Everywhere program and may not contain all information available regarding this patient. Last updated 17.[facility] Allergies Active Allergy Reactions Criticality Noted Date Comments Lisinopril Anaphylaxis High 10/21/2023 Medications * Be aware that medications may not be up to date on this document. Alwaysverify current medications with the patient. Medication Sig Dispensed Refills Start Date End Date Status metFORMIN ER 24hr (Glucophage XR) 500 MG tablet Take 1 (one) tablet by mouth 07/29/2023 Active pantoprazole EC (Protonix) 40 MG tablet Take 1 (one) tablet by mouth once daily 11/16/2022 Active atorvastatin (Lipitor) 20 MG tablet Take 1 (one) tablet by mouth 01/13/2023 Active levothyroxine (Synthroid) 50 MCG tablet Take 1 (one) tablet by mouth 01/13/2023 Active apixaban (Eliquis) 5 MG tablet Take 1 (one) tablet by mouth 01/13/2023 Active acetaminophen (Tylenol) 325 MG tablet Take 2 (two) tablets by mouth every 6 hours as needed Maximum allowable Acetaminophen amount = 4 Grams (4000 mg) / 24 hours. 11/02/2023 Active albuterol (Proventil;Ventolin ) (5 MG/ML) 0.5% nebulizer solution Inhale 0.5 mL by mouth every 4 hours as needed for Shortness of Breath or Wheezing 11/02/2023 Active budesonide-formoter ol (Symbicort) 160-4.5 MCG/ACT inhaler Inhale 2 (two) puffs by mouth 2 times daily 11/02/2023 Active insulin aspart (NovoLOG) pen Inject 0 (zero) Units to 12 (twelve) Units subcutaneously 4 times daily - before meals & nightly 11/02/2023 Active insulin glargine (Lantus/Semglee) 100 units/mL pen Inject 5 (five) Units subcutaneously at bedtime 11/02/2023 Active hydrocortisone (Cortef) 10 MG tablet Take 1 (one) tablet by mouth every evening 11/03/2023 Active polyethylene glycol 3350 (Miralax) 17 g packet Take 17 (seventeen) g by mouth once daily as needed for Constipation 11/02/2023 Active senna (Senokot) 8.6 MG tablet Take 1 (one) tablet by mouth once daily 11/03/2023 Active ferrous sulfate 325 (65 FE) MG tablet Take 1 (one) tablet by mouth once daily for 90 days 11/02/2023 Active dapagliflozin propanediol (Farxiga) 5 MG tablet Take 1 (one) tablet by mouth once daily 11/23/2023 Active carvedilol (Coreg) 12.5 MG tablet Take 1 (one) tablet by mouth 2 times daily with morning and evening meal 11/22/2023 Active furosemide (Lasix) 20 MG tablet Take 2 (two) tablets by mouth once daily 11/23/2023 Active Active Problems Problem Noted Date Diagnosed Date Shortness of breath 11/12/2023 Acute pulmonary edema 11/12/2023 Altered mental status, unspe cified altered mental status type 11/12/2023 Anemia, unspecified type 11/12/2023 Pleural effusion 11/12/2023 Thrombocytopenia 11/12/2023 Elevated serum creatinine 11/12/2023 CO2 retention 11/12/2023 History of COPD 11/12/2023 Acute on chronic congestive heart failure, unspecified heart failure type 11/12/2023 Elevated brain natriuretic peptide (BNP) level 0 11/12/2023 Pneumonia due to infectious organism, unspecified laterality, unspecified part of lung 11/12/2023 Localized swelling of right upper extremity 10/15 Multiple subsegmental pulmon maribell emboli without acute cor pulmonale 11/12/2023 Adrenal insufficiency 10/24/2023 HOMER (obstructive sleep apnea) 10/23/2023 Type 2 diabetes mellitus wit h chronic kidney disease, with long-term current use of insulin 10/23/2023 Stage 3b chronic kidney disease 10/23/2023 COPD, very severe 10/23/2023 Pulmonary hypertension 10/23/2023 Endotracheally intubated 10/23/2023 Atrial fibrillation, unspecified type 10/21/2023 Dialysis patient 10/21/2023 PIPE (acute kidney injury) 10/21/2023 Severe epistaxis 10/21/2023 Acute hypoxic on chronic hypercapnic respiratory failure 10/21/2023 Acute blood loss anemia 10/21/2023 Hemorrhagic shock 10/21/2023 Hyponatremia 10/21/2023 Acute metabolic encephalopathy 10/21/2023 Hyperglycemia 10/21/2023 Acute cystitis 10/21/2023 Severe sepsis without septic shock (CODE) 2023 Uremia 10/21/2023 Chronic hypoxemic respiratory failure 10/21/2023 Resolved Problems Problem Noted Date Diagnosed Date Resolved Date Respiratory distress 10/21/2023 024 Hyperkalemia 10/21/2023 10/21/2023 Social History Tobacco Use Types Packs/Day Years Used Date Smoking Tobacco: Unknown Tobacco Cessation:Counseling Given: Not Answered AUDIT-C Answer Date Recorded Q1: How often do you have a drink containing alcohol? Patient unable to answer 11/14/2023 Q2: How many drinks containi ng alcohol do you have on a typical day when you are drinking? Patient unable to answer Q3: How often do you have si x or more drinks on one occasion? Patient unable to answer 11/14/2023 Overall Financial Resource Strain (CARDIA) Answe r Date Recorded How hard is it for you to pa y for the very basics like food, housing, medical care, and heating? Not hard at all 11/14/2023 [facility] - Occupational Stress Questionnaire Answer Date Recorded Do you feel stress - tense, restless, nervous, or anxious, or unable to sleep at night because your mind is troubled all the time - these days? Not at all 11/14/2023 Hunger Vital Sign Answer Date Recorded Within the past 12 months, y ou worried that your food would run out before you got the money to buy more. Never true 11/14/19 24 Within the past 12 months, t he food you bought just didn't last and you didn't have money to get more. Never true 11/14/2023 PRAPARE - Transportation Answer Date Re corded In the past 12 months, has l ack of transportation kept you from medical appointments or from getting medications? No 02/2023 In the past 12 months, has l ack of transportation kept you from meetings, work, or from getting things needed for daily living? No 11/14/2023 Housing Stability Vital Sign Answer Avery e Recorded In the last 12 months, was t here a time when you were not able to pay the mortgage or rent on time? No 11/20/2023 In the last 12 months, how many places have you lived? 1 11/20/2023 In the last 12 months, was t here a time when you did not have a steady place to sleep or slept in a nursing home (including now)? No 11/20/2023 Sex and Gender Information Value Date Recorded Sex Assigned at Not on file Gender Identity Not on file Sexual Orientation Not on file Last Filed Vital Signs Vital Sign Reading Time Taken Comments Blood Pressure 143/97 11/23/2023 12:52 AM CDT Pulse 72 11/23/2023 12:52 AM CDT Temperature 36.6 C (97.9 F) 11/23/2023 12:52 AM CDT Respiratory Rate 20 11/22/2023 5:05 AM CDT Oxygen Saturation 98% 11/23/2023 12:52 AM CDT Inhaled Oxygen Concentration 40% 11/22/2023 5 :05 AM CDT Weight 138.8 kg (306 lb) 11/22/2023 8:53 AM CDT Height 182.9 cm (6') 11/22/2023 8:53 AM CDT Body Mass Index 41.5 11/22/2023 8:53 AM CDT Plan of Treatment Upcoming Encounters Date Type Department Care Team (Late st Contact Info) Description 04/03/2024 1:40 PM 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 Office Visit [facility] - Endocrinology [address] [place] [id number] Jak Sahu MD [address] [place] [address] Health Maintenance Due Date Last Done Comments COLOGUARD (AGES 45-75) - COLON CA SCREENING 1949 COLON MONITORING 1949 COLONOSCOPY - COLON CA SCREENING 1949 CT COLONOGRAPHY - COLON CA SCREENING 1950 Colorectal Cancer Screening 1949 FIT - COLON CA SCREENING 1949 FLEX SIG - COLON CA SCREENING 1949 HEPATITIS C SCREENING 01/28/1967 DTAP/TDAP/TD VACCINES (1 - Tdap) 02/02/1968 PNEUMOCOCCAL VACCINE 50+ (1 of 2 - PCV) 02/02/1968 HEPATITIS B VACCINE (1 of 3 - Risk Dialysis 4-dose series) 1969 ZOSTER VACCINE (1 of 2) 1999 COVID-19 VACCINE (3 - season) 2023 11/09/2020, 10/12/2020 INFLUENZA VACCINE (#1) 2023 , 11/19/2019, 12/11/2018, Additional history exists DIABETES RETINOPATHY SCREENING 10/23/2023 DIABETES-FOOT EXAM WITH MONOFILAMENT 10/23/2023 Respiratory Syncytial Virus (RSV) Vaccine Pt: or over 60 yrs (1 - 1-dose 75+ series) 02/02/2024 DEPRESSION SCREENING 02/14/2024 DIABETES - URINE PROTEIN SCREENING 02/14/2024 10/17/2023 MEDICARE AWV CALENDAR YEAR 2024 DIABETES-HGB A1C 04/20/2024 10/22/2023, 04/2023, 11/14/2022, Additional history exists DIABETES-SERUM CREATININE 11/21/20242023, 11/21/2023, 11/20/2023, Additional history exists HIB VACCINE Aged Out No longer eligi ble based on patient's age to complete this topic HPV VACCINE Aged Out No longer eligi ble based on patient's age to complete this topic MENINGOCOCCAL (Group B) VACCINE Aged Out No longer eligible based on patient's age to complete this topic MENINGOCOCCAL VACCINE Aged Out No aye malena eligible based on patient's age to complete this topic Procedures Procedure Name Priority Date/Time Associated Diagnosis Comments BASIC METABOLIC PANEL (CALCIUM TOTAL) Routine 11/22/2023 12:33 AM CDT HEMOGLOBIN A1C Routine 10/22/2023 3:15 AM CDT from Last 3 Months or Most Recently Relevant to Health Maintenance Results * (ABNORMAL) BASIC METABOLIC PANEL (CALCIUM TOTAL) (11/22/2023 12:33 AM CDT) BUN 28(H) 7 - 26 mg/dL 11/22/2023 3:00 AM [facility] Creatinine 1.67(H) 0.71 - 1.16 mg/dL 11/22/2023 3:00 AM [facility] Sodium 138 136 - 145 mmol/L 11/22/2023 3:00 AM [facility] Potassium 3.8 3.5 - 4.5 mmol/L 11/22/2023 3:00 AM [facility] Chloride 97(L) 98 - 107 mmol/L 11/22/2023 3:00 AM [facility] CO2 34(H) 22 - 29 mmol/L 11/22/2023 3:00 AM [facility] Glucose 137(H) 70 - 115 mg/dL 11/22/2023 3:00 AM [facility] Calcium 9.2 8.4 - 10.2 mg/dL 11/22/2023 3:00 AM [facility] Anion Gap 7 6 - 16 11/22/2023 3:00 AM [facility] BUN/Creatinine Ratio 17 7 - 23 11/22/2023 3:00 AM [facility] Osmolality Calculated 294 275 - 295 mOsm/kg 11/22/2023 3:00 AM [facility] eGFR by CKD-EPI 43(L) >=90 mL/min/1.7 3 m2 11/22/2023 3:00 AM [facility] Blood BLOOD SPECIMEN / Unknown Lab Venipuncture / Unknown 11/22/2023 12:33 AM CDT 11/22/2023 2:31 AM CDT Nitin Alfonso MD LAB - CHEMISTRY [facility] Performing Organization Address City/[facility]/ZIP Co de Phone Number [facility] [address] [place] [address], [facility] [phone] * (ABNORMAL) HEMOGLOBIN A1C (10/22/2023 3:15 AM CDT) Hemoglobin A1c 7.4(H) <=5.6 % 10/22/2023 9:24 AM CDT [facility] Estimated Average Glucose 166 mg/dL 10/22/2023 9:24 AM CDT [facility] Comment: HbA1c Interpretation: Normal : < 5.7% Pre-diabetes: 5.7-6.4% Diabetes: Equal to or greater than 6.5% Test results diagnostic of diabetes should be repeated for confirmation. Treatment target values recommended by ADA and other clinical organizations should be used to evaluate metabolic control in patients. Reference: [place] [employer] Association, Standards of Care in Diabetes -2020 In patients 70 years and older consider HbA1c target range of 7.0-7.5% (Reference: Felix Whittaker et al. JAMDA. 2012) The Sebia assay for the measurement of HbA1c is a National Glycohemoglobin Standardization Program (NGSP) certified method. Blood BLOOD SPECIMEN / Unknown Venipuncture / Unknown 10/22/2023 3:15 AM CDT 10/22/2023 3:21 AM CDT Georgette George MD LAB - CHEMISTRY [facility] [address] [place] [address], [facility] [phone] from Last 3 Months or Most Recently Relevant to Health Maintenance Additional Health Concerns Infection Onset Date Last Indicated MDRO Hx 11/03/2023 11/03/2023 Advance Directives * Full Code (Latest Code Status on File) Date Activated Date Inactivated Comments 11/12/2023 10:39 PM 11/23/2023 3:18 AM * Full Code Date Activated Date Inactivated Comments 10/21/2023 3:52 PM 11/02/2023 8:07 PM
--- OUTSIDE RECORDS SUMMARY | 2024-03-28 09:33 | XMS_ITS | Encounter Summary ---
Author Name [facility] Organization [facility] Address [address] [place] [address] Care Team Providers Care Underwear Welter Name Role Phone SHANTE OLSEN Primary Care Provider Unavail le Insurance Providers: [...] Policy Ferreira MEDICARE (WNR) MEDICARE (M) PART B Jan 13, 2014 PART B [id number] Chaz LINARES PATIENT MEDICARE (WNR) MEDICARE (M) PART A Jan 13, 2014 PART A [id number] Chaz LINARES PATIENT [facility] (WNR) MEDICARE ADVANTAGE [facility] (WNR) Apr 13, 2021 [id number] Chaz LINARES PATIENT Selected Encounter This section includes the information on record at [place] for the Encounter. Date/Time Encounter Type Encounter Description Reason Provider Source Apr 19, 2023 02:18 PM OFF/OP EST JUNE X REQ PHY/QHP PRIMARY CARE/MEDICINE ICD-10-CM I10 Essential (primary) hypertension JUAN JOSE GUTIERREZ IHChaz Encounter Template Text not used by [place] Assessments - Encounter Diagnoses This section includes the primary and secondary diagnoses documented for the Encounter. Date/Time Primary/Secondary Diagnosis Diagnosis Name Provider Source Apr 20, 2023 09:40 AM PRIMARY Essential (primary) hypertension MEGHAN JAIRO Becky [facility] Plan of Treatment: Future Appointments (+ 6 months) and Future Tests (+/- 45 days) The Plan of Treatment section includes future care activities for the patient from all [place] treatmentfacilities. This section includes future appointments and future orders which are active, pending or scheduled. Future Appointments This section includes appointments that were scheduled to occur 6 months from the date of the Encounter, up to a maximum of 20 appointments. The data comes from all [place] treatment facilities. Appointment Date/Time Appointment Type Appointme nt Facility Name Apr 26, 2023 09:30 AM AMBULATORY - MEDICINE [facility] May 31, 2023 08:00 AM AMBULATORY - NONE [facility] May 31, 2023 11:30 AM AMBULATORY - MEDICINE [facility] June 29, 2023 11:30 AM AMBULATORY - NONE [facility] Sep 27, 2023 10:00 AM AMBULATORY - MEDICINE [facility] Social History: Smoking Status (Most current) and Tobacco Use (All prior to encounter date) This section includes the most current, and the historical, smoking and tobacco- related health factors from the [place] facility where the Encounter took place. Current Smoking Status This section includes the most current smoking, or tobacco-related health factor, from the [place] facility where the Encounter took place. Date/Time Current Smoking Status Comment Zina ity Jan 20, 2022 11:30 AM VA-TOBACCO NEVER USED [facility] Tobacco Use History This section includes a history of the smoking, or tobacco-related health factors, that were collected on or before the date of the Encounter. The data comes from the [place] facility where the Encounter took place. Date/Time Smoking Status/Tobacco Use Comment F acility Oct 12, 2020 02:30 PM VA-TOBACCO FORMER USER [facility] Oct 12, 2020 02:30 PM VA-TOBACCO QUIT [address] [facility] Oct 23, 2019 02:00 PM VA-TOBACCO FORMER USER [facility] Oct 23, 2019 02:00 PM VA-TOBACCO QUIT 15 YRS OR MORE [facility] Mar 22, 2018 02:38 PM VA-TOBACCO FORMER USER [facility] Mar 22, 2018 02:38 PM VA-TOBACCO QUIT 15 YRS OR MORE [facility] Apr 24, 2017 01:40 PM QUIT TOBACCO >7 YEARS AGO [facility] Aug 25, 2016 11:27 AM QUIT TOBACCO >7 YEARS AGO [facility] Feb 16, 2016 10:24 AM QUIT TOBACCO >7 YEARS AGO [facility] Feb 02, 2015 09:42 AM QUIT TOBACCO >7 YEARS AGO [facility] Encounter Notes: All associated encounter notes This section contains the clinical notes associated to the Encounter. Date/Time Encounter Note(s) Provider Source Apr 19, 2023 02:18 PM NURSING NOTE: LOCAL TITLE: V15 PACT TELEPHONE CONTACT NOTE [facility] STANDARD TITLE: NURSING NOTE DATE OF NOTE: APR 19, 2023@14:18 ENTRY DATE: APR 19, 2023@14:21:56 AUTHOR: YASMINE GUTIERREZ EXP COSIGNER: URGENCY: STATUS: COMPLETED Unable to contact: Left voice mail message instructing patient to return call. Outbound call to patient for: RNCM reached out to Per Dr. Olsen please have pt come in to see me 3.7.24. prior to 1400 so we can do labs. /paul/ YASMINE GUTIERREZ RN, MSN Yasmine Gutierrez RN, MSN Signed: 04/19/2023 14:24 YASMINE GUTIERREZ [facility]
--- OUTSIDE RECORDS SUMMARY | 2024-03-28 09:33 | XMS_ITS | Referral Summary ---
Author Organization [facility] Address [address] [place] [address] Care Team Providers Care Poultry Processing Supervisor Name Role Phone Unavailable Primary Care Provider Unavailabl e Source Comments [facility],non-owned Affiliates and Associated Physician Practices is amultiple site organization consisting of ambulatory clinics and hospital sitesin [place], [place], [place] and [place]. This disclosure is being madepursuant to the Care Everywhere program and may not contain all information available regarding this patient. Last updated 17.[facility] Allergies Active Allergy Reactions Criticality Noted Date [...] and heating? Not hard at all 11/14/2023 [facility] [place] [facility] - Occupational Stress [...] place to sleep or slept in a senior living (including now)? No 11/20/2023 Sex and Gender [...] Mass Index 41.5 11/22/2023 8:53 AM CDT Functional Status Functional Status Response Date of Assess ment Is person deaf or have serious hearing difficult y? No 11/22/2023 Is person blind or have serious difficulty seein g? No 11/22/2023 Does person have serious dif ficulty walking/climbing stairs? Yes 11/22/2023 Does person have difficulty dressing/bathing? Ye s 11/22/2023 Does person have difficulty doing errands alone? Yes 11/22/2023 Cognitive Status Response Date of Assessm ent Does person have difficulty concentrating/remembering/making decisions? 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 Office Visit [facility] - Endocrinology [address] [place] [id number] Jak Sahu MD [address] [place] [address] Procedures Procedure Name Priority Date/Time Associated Diagnosis Comments BASIC METABOLIC PANEL (CALCIUM TOTAL) Routine 11/22/2023 12:33 AM CDT HEMOGLOBIN A1C Routine 10/22/2023 3:15 AM CDT from Last 3 Months or Most Recently Relevant to Health Maintenance Results * (ABNORMAL) BASIC METABOLIC PANEL (CALCIUM TOTAL) (11/22/2023 12:33 AM CDT) BUN 28(H) 7 - 26 mg/dL 11/22/2023 3:00 AM [facility] Creatinine 1.67(H) 0.71 - 1.16 mg/dL 11/22/2023 3:00 AM [facility] Sodium 138 136 - 145 mmol/L 11/22/2023 3:00 AM [facility] Potassium 3.8 3.5 - 4.5 mmol/L 11/22/2023 3:00 AM [facility] Chloride 97(L) 98 - 107 mmol/L 11/22/2023 3:00 AM [facility] CO2 34(H) 22 - 29 mmol/L 11/22/2023 3:00 AM [facility] Glucose 137(H) 70 - 115 mg/dL 11/22/2023 3:00 AM T [facility] Calcium 9.2 8.4 - 10.2 mg/dL 11/22/2023 3:00 AM [facility] Anion Gap 7 6 - 16 11/22/2023 3:00 AM [facility] BUN/Creatinine Ratio 17 7 - 23 11/22/2023 3:00 AM [facility] Osmolality Calculated 294 275 - 295 mOsm/kg 11/22/2023 3:00 AM [facility] eGFR by CKD-EPI 43(L) >=90 mL/min/1.7 3 m2 11/22/2023 3:00 AM [facility] Blood BLOOD SPECIMEN / Unknown Lab Venipuncture / Unknown 11/22/2023 12:33 AM CDT 11/22/2023 2:31 AM CDT Nitin Alfonso MD [facility] Organization Address City/State/ZIP Co de Phone Number [facility] [address] [place] [address], [facility] [phone] * (ABNORMAL) HEMOGLOBIN A1C (10/22/2023 3:15 AM CDT) Hemoglobin A1c 7.4(H) <=5.6 % 10/22/2023 9:24 AM [facility] Estimated Average Glucose 166 mg/dL 10/22/2023 9:24 AM [facility] Comment: HbA1c Interpretation: Normal : < 5.7% Pre-diabetes: 5.7-6.4% Diabetes: Equal to or greater than 6.5% Test results diagnostic of diabetes should be repeated for confirmation. Treatment target values recommended by ADA and other clinical organizations should be used to evaluate metabolic control in patients. Reference: [place] [employer] Association, Standards of Care in Diabetes [...] George MD LAB - CHEMISTRY [facility] [address] [place] [address], [facility] [phone] from Last 3 Months or Most Recently [...]
--- OUTSIDE RECORDS SUMMARY | 2024-03-28 09:33 | XMS_ITS | Clinical Summary ---
Author Organization [facility] Address [address] [place] [address] Care Team Providers Care Jewel Oliving Machine Operator Name Role Phone Jens Olsen MD Primary Care Provider [phone] Allergies Active Allergy Reactions Criticality Noted Date Comments Lisinopril Anaphylaxis High 12/01/2021 Medications apixaban (ELIQUIS) 5 mg tablet take 1 tablet by oral route 2 times every day 0 0 5 Active aspirin 81 mg tablet take 1 tablet (81MG) by ORAL route every day 0 0 Active tamsulosin (FLOMAX) 0.4 mg extended release capsule 0.4 mg. Acti ve vit D3-vit L-duuejelyy-omqm [phone] gedw-afh-af-mg tablet Take by mouth. Active pantoprazole (PROTONIX) 40 mg injection Active atorvastatin (LIPITOR) 80 mg tablet Take 80 mg by mouth daily. Active furosemide (LASIX) 40 mg tablet Take 1 tablet (40 mg total) by mouth 2 (two) times a day 60 tablet 2 Active metoprolol tartrate (LOPRESSOR) 25 mg immediate release tablet Take 0.5 tablets (12.5 mg total) by mouth 2 (two) times a day 30 tablet 2 Active ondansetron ODT (ZOFRAN-ODT) 8 mg disintegrating tablet Take 1 tablet (8 mg total) by mouth every 8 (eight) hours as needed for nausea or vomiting 30 tablet 3 Active Active Problems Problem Noted Date Diagnosed Date Hyperkalemia 12/01/2021 Diet-controlled diabetes mellitus ([facility]) 11/13 CHF (congestive heart failur e), NYHA class I, acute on chronic, diastolic 12/01/2021 Acute on chronic diastolic c ongestive heart failure ([facility]) 11/30/2021 Hypersomnia with sleep apnea 12/04/2014 Overview (05/19/2016): Hypersomnia with sleep apnea Morbid obesity 12/04/2014 Overview (05/19/2016): Morbid obesity with BMI of 40.0-44.9, adult Obstructive sleep apnea syndrome 12/04/2014 Overview (05/19/2016): Obstructive sleep apnea syndrome Hypertension 06/29/2013 Overview (05/20/2016): HYPERTENSION NOS Hyperlipidemia 06/29/2013 Overview (05/20/2016): HYPERLIPIDEMIA NEC/NOS Paroxysmal atrial fibrillation ([facility]) 014 Overview (05/19/2016): AF - Paroxysmal atrial fibrillation Systolic congestive heart failure ([facility]) Immunizations Name Administration Dates Next Due DTP 11/26/2011 Influenza, Quadrivalent, Hig h Dose, Preservative Free, Intrr 12/07/2021 Influenza, Split 02/27/2013,12/03/2009 Influenza, Trivalent, Recomb inant, Egg Free, Preservative Free, Antibiotic Free, IM (FLUBLOK) 11/18/2014 Medical History Medical History Date Comments Arrhythmia Hypertension COPD (chronic obstructive pulmonary disease) (HC C) CHF (congestive heart failure) ([facility]) (HCC) PAF (paroxysmal atrial fibrillation) ([facility] ( [facility]) Sleep apnea Diabetes mellitus (HCC) Family History Medical History Relation Name Comments Stomach cancer Mother cancer, gastr ic; Breast cancer Sister 2 Cancer, breast ; Relation Name Status Comments Mother Alive Sister 1 Alive Sister 2 Social History Tobacco Use Types Packs/Day Years Used Date Smoking Tobacco: Former Cigarettes Q uit: 1982 Smokeless Tobacco: Never Tobacco Cessation:Counseling Given: Not Answered Comments:Smoking History Packs/day: 1 Packs Alcohol Use Standard Drinks/Week Comments No 0 (1 standard drink = 0.6 oz pur e alcohol) Social Connection and Isolat ion Panel [NHANES] Answer Date Recorded In a typical week, how many times do you talk on the phone with family, friends, or neighbors? Once a week 12/03/2021 How often do you get togethe r with friends or relatives? Once a week 12/03/2021 How often do you attend chur or zoroastrian services? More than 4 times per year 12/03/2021 Do you belong to any clubs o r organizations such as synagogue groups, unions, fraternal or athletic groups, or school groups? No 12/03/2021 How often do you attend meet ings of the clubs or organizations you belong to? Never 12/03/2021 Are you , , di vorced, , never , or living with a partner? 12/03/2021 AUDIT-C Answer Date Recorded Frequency of Alcohol Consumption Not on file 12/01/2021 Q2: How many drinks containi ng alcohol do you have on a typical day when you are drinking? Patient does not drink 2 Frequency of Binge Drinking Not on file 11/13 Overall Financial Resource Strain (CARDIA) Answe r Date Recorded How hard is it for you to pa y for the very basics like food, housing, medical care, and heating? Not hard at all 12/03/2021 Hunger Vital Sign Answer Date Recorded Within the past 12 months, y ou worried that your food would run out before you got the money to buy more. Never true 12/04/19 22 Within the past 12 months, t he food you bought just didn't last and you didn't have money to get more. Never true 12/03/2021 PRAPARE - Transportation Answer Date Re corded In the past 12 months, has l ack of transportation kept you from medical appointments or from getting medications? No 11/14 In the past 12 months, has l ack of transportation kept you from meetings, work, or from getting things needed for daily living? No 12/03/2021 Housing Stability Vital Sign Answer Avery e Recorded In the last 12 months, was t here a time when you were not able to pay the mortgage or rent on time? No 12/03/2021 In the last 12 months, how many places have you lived? 1 12/03/2021 In the last 12 months, was t here a time when you did not have a steady place to sleep or slept in a longterm (including now)? No 12/03/2021 Personal Safety Answer Date Recorded Have you ever been in or are you currently in a harmful physical or emotional relationship or is someone making you feel afraid or unsafe? Denies 11/11/2023 Sex and Gender Information Value Date Recorded Sex Assigned at Not on file Legal Sex Male 11:50 PM INFORMATION RESOURCES DIRECTOR Gender Identity Not on file Sexual Orientation Not on file Obstetrics History Last Filed Vital Signs Vital Sign Reading Time Taken Comments Blood Pressure 103/59 11/12/2023 6:33 AM CDT Pulse 93 11/12/2023 6:33 AM CDT Temperature 36.8 C (98.2 F) 11/11/2023 6:03 PM CDT Respiratory Rate 16 11/12/2023 6:33 AM CDT Oxygen Saturation 95% 11/12/2023 6:33 AM CDT Inhaled Oxygen Concentration - - Weight 139 kg (306 lb 7 oz) 11/11/2023 6:03 PM C DT Height 167.6 cm (5' 6 ) 11/11/2023 6:03 PM CDT Body Mass Index 49.46 11/11/2023 6:03 PM CDT Plan of Treatment Health Maintenance Due Date Last Done Comments Albumin Creatinine Ratio, Urine 1949 Depression Screening 1949 Hepatitis C Screening 1949 Dilated Eye Exam 1949 Foot Exam 1949 Hepatitis B Screening 1967 Well Visit 65+ 2014 Lipid Panel 05/06/2020 05/07/2019, 04/14, 10/29/2012 Hemoglobin A1C 06/01/2022 12/01/2021 Fall Risk Assessment 12/07/2022 12/07/2021 Influenza Vaccine (#1) 2023 , 12/11/2018, 12/25/2017, Additional history exists eGFR 11/10/2024 11/11/2023, 03/17, 12/07/2021, Additional history exists DTaP/Tdap/Td Vaccine (3 - Td or Tdap) 02/02/2025 02/02/2015, 11/26/2011 Colon Cancer Screening-Colonoscopy 02/27/2027 02/27/2017 Pneumococcal vaccine 65+ Completed 02/16/2016, 01/14 Colon Cancer Screening-CT Colonography Discontinued 02/27/2017 Colon Cancer Screening-DNA Stool Discontinued 02/27/19 Colon Cancer Screening-FIT Discontinued 02/27/2017 Colon Cancer Screening-Sigmoidoscopy Discontinued 02/27/2017 Zoster Vaccine Completed 01/20/2022, 08/0 10/2018, 03/05/2015 Abdominal Aortic Aneurysm (A AA) Screen Completed 10/16/2023, 01/07/2023, 11/13/2022, Additional history exists Procedures Procedure Name Priority Date/Time Associated Diagnosis Comments EGFR STAT 11/11/2023 6:[address] ABDOMEN PELVIS W CONTRAST ED 04/07/2022 9:39 AM INFORMATION RESOURCES DIRECTOR HEMOGLOBIN A1C Routine 12/01/2021 3:39 AM CDT COLONOSCOPY REPORT 02/27/2017 SERUM LIPID PANEL Routine 05/02/2014 7:0 8 AM CDT from Last 3 Months or Most Recently Relevant to Health Maintenance Results * (ABNORMAL) eGFR (11/11/2023 6:12 PM CDT) eGFR 40(L) >=60 mL/min/1. 73 m2 Comment: Interpretive Data Reference Interval Normal >/= 90 mL/min/1.73m2 Mildly decreased* 60 - 89 mL/min/1.73m2 Mildly to moderately decreased 45 - 59 mL/min/1.73m2 Moderately to severely decreased 30 - 44 mL/min/1.73m2 Severely decreased 15 - 29 mL/min/1.73m2 Kidney Failure < 15 mL/min/1.73m2 *Relative to young adult level Estimated glomerular filtration rate is determined by the 2020 CKD-EPI equation recommended by the National Kidney Foundation (A Unifying Approach to GFR Estimation: Recommendations of the NKF-ASK Task Force on Reassessing the Inclusion of Race in Diagnosing Kidney Disease, PAULSRaine 2020). The CKD-EPI equation should not be used for patients with unstable renal function and has not been validated in children and those over 70. Current interpretive data was last reviewed 2020. Blood 11/11/2023 6:12 PM CDT 11/11/2023 6:14 PM CDT us Jj Sim MD LAB BLOOD ORDERABLES F inal Result [facility] [address] [facility] Department [place] [address] * CT Abdomen Pelvis W Contrast (04/07/2022 9:39 AM INFORMATION RESOURCES DIRECTOR) Anatomical Region Laterality Modality Body N/A Computed Tomogra phy 04/07/2022 10:3 9 AM INFORMATION RESOURCES DIRECTOR Narrative 04/07/2022 10:55 AM INFORMATION RESOURCES DIRECTOR EXAM DESCRIPTION: CT ABDOMEN PELVIS W CONTRAST REASON FOR STUDY: Abdominal pain with vomiting and diarrhea. TECHNIQUE: CT scan of the abdomen and pelvis performed with intravenous and without oral contrast using helical scanning technique with dynamic intravenous contrast injection. Reconstructed coronal and sagittal MPR images reviewed. All images stored on PACS. Automated exposure control was used as a dose optimization technique for this examination. CONTRAST TYPE/DOSE: 100mL of IOVERSOL 350 MG IODINE/ML INTRAVENOUS SOLUTION injected via intravenous COMPARISON: CT chest 03/26/2022, CT chest, abdomen, pelvis 03/07/2011 REFERENCE: Per ACR white paper recommendations, unless otherwise specified no follow-up imaging is recommended for incidental renal and adrenal lesions per consensus recommendations based on imaging criteria. Further lab evaluation could be pursued based on clinical findings. FINDINGS: LOWER CHEST: Linear 6 mm nodule in the anterior right lower lobe is unchanged from 01/02. A noncalcified 5 mm nodule in the right lower lobe previously measured 4 mm in 2011. No further follow-up per Fleischner society guidelines. Trace pleural effusions and adjacent consolidation have significantly decreased particularly on the right when compared to 03/26/2022. LIVER: Normal size. No identified cystic or solid masses. GALLBLADDER: Possible sludge or gallstones within the gallbladder. No pericholecystic inflammatory change. BILE DUCTS: No intrahepatic or extrahepatic ductal dilatation. SPLEEN: Normal size. No focal lesions. PANCREAS: No identified cystic or solid masses. No significant calcifications. No adjacent inflammation or peripancreatic fluid collections. Pancreatic duct not dilated. ADRENALS: Normal. KIDNEYS/URINARY TRACT: Cyst in the interpolar right kidney measuring 1.3 cm requires no specific follow-up. Cysts in the left kidney require no further follow-up. Urinary bladder is unremarkable. GI: No dilated bowel loops. No obvious wall thickening. Normal appendix. No significant diverticular disease. PERITONEUM: No ascites or free air. RETROPERITONEUM: No mass or adenopathy. REPRODUCTIVE: No significant abnormality. VASCULATURE: Atherosclerotic calcification of the abdominal aorta without aneurysm. MUSCULOSKELETAL: No significant abnormality. OTHER: No other abnormality. IMPRESSION: 1. No acute abnormality to explain the patient's symptoms. 2. Possible cholelithiasis or sludge within the gallbladder. No pericholecystic inflammatory change. 3. Improved aeration in the lung bases, particularly on the right. Trace pleural effusions have also significantly decreased in size. THIS IS AN ELECTRONICALLY VERIFIED FINAL REPORT 04/07/2022 10:55 AM - Electronically signed by Jaylan Escamilla M.D. LB: JAVIER Report ID: [id number] Reading Location: [id number] Procedure Note Jaylan Escamilla MD - 04/07/2022 EXAM DESCRIPTION: CT ABDOMEN PELVIS W CONTRAST REASON FOR STUDY: Abdominal pain with vomiting and diarrhea. TECHNIQUE: CT scan of the abdomen and pelvis performed with intravenousand without oral contrast using helical scanning technique with dynamic intravenous contrast injection. Reconstructed coronal and sagittal MPRimages reviewed. All images stored on PACS. Automated exposure control was used as a dose optimization technique forthis examination. CONTRAST TYPE/DOSE: 100mL of IOVERSOL 350 MG IODINE/ML INTRAVENOUSSOLUTION injected via intravenous COMPARISON: CT chest 03/26/2022, CT chest, abdomen, pelvis 03/07/2011 REFERENCE: Per ACR white paper recommendations, unless otherwise specifiedno follow-up imaging is recommended for incidental renal and adrenal lesionsper consensus recommendations based on imaging criteria. Further labevaluation could be pursued based on clinical findings. FINDINGS: LOWER CHEST: Linear 6 mm nodule in the anterior right lower lobe is unchanged from 01/02. A noncalcified 5 mm nodule in the right lower lobe previously measured 4 mm in 2012. No further follow-up per [facility] guidelines. Trace pleural effusions and adjacent consolidation have significantly decreased particularly on the right when compared to03/26/2022. LIVER: Normal size. No identified cystic or solid masses. GALLBLADDER: Possible sludge or gallstones within the gallbladder. No pericholecystic inflammatory change. BILE DUCTS: No intrahepatic or extrahepatic ductal dilatation. SPLEEN: Normal size. No focal lesions. PANCREAS: No identified cystic or solid masses. No significant calcifications. No adjacent inflammation or peripancreatic fluidcollections. Pancreatic duct not dilated. ADRENALS: Normal. KIDNEYS/URINARY TRACT: Cyst in the interpolar right kidney measuring 1.3cm requires no specific follow-up. Cysts in the left kidney require nofurther follow-up. Urinary bladder is unremarkable. GI: No dilated bowel loops. No obvious wall thickening. Normalappendix. No significant diverticular disease. PERITONEUM: No ascites or free air. RETROPERITONEUM: No mass or adenopathy. REPRODUCTIVE: No significant abnormality. VASCULATURE: Atherosclerotic calcification of the abdominal aortawithout aneurysm. MUSCULOSKELETAL: No significant abnormality. OTHER: No other abnormality. IMPRESSION: 1. No acute abnormality to explain the patient's symptoms. 2. Possible cholelithiasis or sludge within the gallbladder. No pericholecystic inflammatory change. 3. Improved aeration in the lung bases, particularly on the right.Trace pleural effusions have also significantly decreased in size. THIS IS AN ELECTRONICALLY VERIFIED FINAL REPORT 04/07/2022 10:55 AM - Electronically signed by Jaylan Escamilla M.D. LB: JAVIER Report ID: [id number] Reading Location: [id number] Michael Alcala MD IM CT PROCEDURES F inal Result * (ABNORMAL) Hemoglobin A1c (12/01/2021 3:39 AM CDT) Hgb A1C 6.7(H) 4.0 - 5.6 % [facility] Estimated Average Glucose 146 mg/dL [facility] Comment: The ADA recommends reporting an estimated Average Glucose (eAG) with all Hemoglobin A1c results using the equation derived from a study of 507 normal and diabetic adults. Minority populations were underrepresented and children were not included. (Diabetes Care 31:1966-3806, 2008). The eAG is not equivalent to a fasting glucose. Blood 12/01/2021 3:39 AM CDT 12/01/2021 3:49 AM CDT us Darwin Richard MD LAB BLOOD ORDERABLES F inal Result [facility] [address] [place] [address] * COLONOSCOPY REPORT (02/27/2017) Anatomical Region Laterality Modality Other us Provider Scanning GI PROCEDURE ORDERABLES Final Result * Serum lipid panel (05/02/2014 7:08 AM CDT) Cholesterol 159 40 - 199 mg/dl HISTORICAL RESULTS Comment: DESIRABLE = LESS THAN 200 MG/DL BORDERLINE HIGH = 200-239 MG/DL HIGH= GREATER THAN 239 MG/DL Triglycerides 93 -<150 mg/dl HISTORICAL RESULTS Comment: NORMAL = LESS THAN 150 MG/DL BORDERLINE HIGH = 150-199 MG/DL HIGH = 200-499 MG/DL VERY HIGH = GREATER THAN OR EQUAL TO 500 MG/DL HDL 43 40 - 60 mg/dl HISTORICAL RESULTS Comment: LOW HDL CHOLESTEROL = Less than 40 mg/dL NORMAL HDL CHOLESTEROL = 40-60 mg/dL HIGH HDL CHOLESTEROL = Greater than 60 mg/dL Non-HDL cholesterol, calculated 116 mg/dl HISTORICAL RESULTS Comment: OPTIMAL LESS THAN 130 LOW RISK 130 -159 MODERATE RISK 160 - 189 HIGH RISK GREATER THAN OR EQUAL TO 190 LDL, calculated 97 HIST ORICAL RESULTS Comment: LESS THAN 100 MG/DL OPTIMAL 100 - 129 MG/DL NEAR OPTIMAL / ABOVE OPTIMAL 130 - 159 MG/DL BORDERLINE HIGH 160 - 189 MG/DL HIGH GREATER THAN OR = 190 MG/DL VERY HIGH LDL VALUES ARE NOT VALID WHEN THE TOTAL TRIGLYCERIDE IS GREATER THAN 300 MG/DL. Serum 05/02/2014 7:08 AM CDT us David Hollingsworth MD LAB BLOOD ORDERABLES Ondina mejia Result HISTORICAL RESULTS from Last 3 Months or Most Recently Relevant to Health Maintenance Insurance [employer] HMO [employer] MED[employer]ARE HMO [employer] HMO Advance Directives For more information, please contact: [phone] * Full Code (Latest Code Status on File) Date Activated Date Inactivated Comments 11/30/2021 10:18 PM 12/08/2021 12:17 AM Care Teams Jewel Oliving Machine Operator Relationship Specialty Start Date End Date Jens Olsen MD [address] [facility] [address] PCP - General Internal Medicine 11/30/21
--- OUTSIDE RECORDS SUMMARY | 2024-03-28 09:33 | XMS_ITS | Encounter Summary ---
Author Name [facility] [place] [facility] [place] Organization [facility] [place] [facility] [place] Address [address] [place] [address] Care Team Providers Care Director Of Athletics Name Role Phone SHANTE TINSLEY Primary Care [...] PART B Jan 13, 2014 PART B [id number] [phone] Chaz LINARES PATIENT MEDICARE (WNR) MEDICARE (M) PART A Jan 13, 2014 PART A [id number] Chaz LINARES PATIENT [facility] (WNR) MEDICARE ADVANTAGE [facility] (WNR) Apr 13, 2021 [id number] [phone] Chaz LINARES PATIENT Selected Encounter This section includes the information on record at [place] for the Encounter. Date/Time Encounter Type Encounter Description Reason Pro vider Source May 17, 2023 08:35 AM Outpatient Encounter COMMUNITY CARE CONSULT IHE Encounter Template Text not used by VA Plan of Treatment: Future Appointments (+ 6 months) and Future Tests (+/- 45 days) The Plan of Treatment section includes future care activities for the patient from all [place] [facility]. This section includes future appointments and future orders which are active, pending or scheduled. Future Appointments This section includes appointments that were scheduled to occur 6 months from the date of the Encounter, up to a maximum of 20 appointments. The data comes from all [facility]. Appointment Date/Time Appointment Type Appointme nt Facility Name May 31, 2023 08:00 AM AMBULATORY - NONE [facility] May 31, 2023 11:30 AM AMBULATORY - MEDICINE [facility] June 29, 2023 11:30 AM AMBULATORY - NONE [facility] Sep 27, 2023 10:00 AM AMBULATORY - MEDICINE [facility] Active, Pending, and Scheduled Orders This section includes a listing of several types of active, pending, and scheduled orders, including clinic medications orders, diagnostic test orders, procedure orders and consult orders; where the start date of the order is 45 days before the date of the Encounter or 45 days after the date of theEncounter. The data comes from all [facility]. Test Date/Time Test Type Test Details Facility Name Jun 07, 2023 12:00 AM Laboratory - Microbiology Order C&S URINE URINE,[facility]OM [facility] Jun 07, 2023 12:00 AM Laboratory - Chemistry Order CYSTATIN C EGFR PANELS (STL-PB-MA) GREEN LI/HEP BLD/PLAS PLASMA [facility] Jun 07, 2023 12:00 AM Laboratory - Chemistry Order TSH W/ REFLEX FT4 (STL) GREEN LI/HEP BLD/PLAS PLASMA [facility] Jun 07, 2023 12:00 AM Laboratory - Chemistry Order VITAMIN D, 25-HYDROXY GOLD/RED SST SERUM [facility] Jun 07, 2023 12:00 AM Laboratory - Chemistry Order PROST. SPECIFIC AG.(PB-STL) GOLD/RED SST SERUM [facility] Jun 07, 2023 12:00 AM Laboratory - Chemistry Order COMPREHENSIVE METABOLIC PANEL GREEN LI/HEP BLD/PLAS PLASMA [facility] Jun 07, 2023 12:00 AM Laboratory - Chemistry Order LIPID PANEL (STL) GREEN LI/HEP BLD/PLAS PLASMA [facility] Jun 07, 2023 12:00 AM Laboratory - Chemistry Order CBC BLOOD SP [facility] Jun 07, 2023 12:00 AM Laboratory - Chemistry Order URINALYSIS (STL-PB) URINE SP [facility] Jun 07, 2023 12:00 AM Laboratory - Chemistry Order MICRAL/CREAT PROFILE (STL) URINE YELLOW SP [facility] Jun 07, 2023 12:00 AM Laboratory - Chemistry Order HGA1C BLOOD SP [facility] Social History: Smoking Status (Most current) and Tobacco Use (All prior to encounter date) This section includes the most current, and the historical, smoking and tobacco- related health factors from the [place] facility where the Encounter took place. Current Smoking Status This section includes the most current smoking, or tobacco-related health factor, from the [place] facility where the Encounter took place. Date/Time Current Smoking Status Comment Zina vermay Nov 29, 2018 07:51 PM ORYX ADMIT TOBACCO SCREEN NO [facility] Tobacco Use History This section includes a history of the smoking, or tobacco-related health factors, that were collected on or before the date of the Encounter. The data comes from the [place] facility where the Encounter took place. Date/Time Smoking Status/Tobacco Use Comment F acility Nov 29, 2018 07:28 PM LIFETIME NON-USER OF TOBACCO [facility] Encounter Notes: All associated encounter notes This section contains the clinical notes associated to the Encounter. Date/Time Encounter Note(s) Provider Source May 17, 2023 08:37 AM NONVA NOTE: LOCAL TITLE: COMMUNITY CARE-REQUEST FOR SERVICE NOTE ST STANDARD TITLE: NONVA NOTE DATE OF NOTE: MAY 17, 2023@08:37 ENTRY DATE: MAY 17, 2023@08:37:41 AUTHOR: PAMELA JC COSIGNER: URGENCY: STATUS: COMPLETED Request for Services (RFS) documentation has been sent for scanning to [facility] Consult: [facility] Consult No: [id number] Date sent to scanning: May A Request for Service (RFS) form [id number] has been received which includes the following: Care Requested: Continued skilled home health SN for wound care ICD-10 Dx code: L89.229 Date VA received request: May Date service required: May Requesting Community Provider Information: Name of Ordering Provider: LYNN AMANDA Office: Address, [facility], State: [address] [place] [address] Tinsley/Lupillo faxing clinical notes to provider/sent to scanning /paul/ NICOLÁS LO, RN REGISTERED NURSE Signed: 05/17/2023 08:50 Receipt Acknowledged By: 05/18/2023 20:56 /paul/ SHANTE TINSLEY MD STAFF PHYSICIAN PAMELA JC [facility]
--- OUTSIDE RECORDS SUMMARY | 2024-03-28 09:33 | XMS_ITS | Referral Summary ---
Author Organization [facility] Address [address] [place] [address] Care Team Providers Care Workers Compensation Claims Specialist Name Role Phone Jens Olsen MD Primary Care Provider [phone] Allergies Active Allergy Reactions Criticality Noted Date Comments Lisinopril Anaphylaxis High 12/01/2021 Medications apixaban (ELIQUIS) 5 mg tablet take 1 tablet by oral route 2 times every day 0 0 5 Active aspirin 81 mg tablet take 1 tablet (81MG) by ORAL route every day 0 0 Active tamsulosin (FLOMAX) 0.4 mg extended release capsule 0.4 mg. Acti ve vit D3-vit H-tbbgqjuan-nxqq [phone] usgs-jkc-oc-mg tablet Take by mouth. Active pantoprazole (PROTONIX) [...] Diagnosed Date Hyperkalemia 12/01/2021 Diet-controlled diabetes mellitus ([facility] 11/13 CHF (congestive heart failur e), NYHA class I, acute on chronic, diastolic 12/01/2021 Acute on chronic diastolic c ongestive heart failure ([facility] 11/30/2021 Hypersomnia with sleep apnea 12/04/2014 Overview (05/19/2016): Hypersomnia with sleep apnea Morbid obesity 12/04/2014 Overview (05/19/2016): Morbid obesity with BMI of 40.0-44.9, adult Obstructive sleep apnea syndrome 12/04/2014 Overview (05/19/2016): Obstructive sleep apnea syndrome Hypertension 06/29/2013 Overview (05/20/2016): HYPERTENSION NOS Hyperlipidemia 06/29/2013 Overview (05/20/2016): HYPERLIPIDEMIA NEC/NOS Paroxysmal atrial fibrillation ([facility]) 014 Overview (05/19/2016): AF - Paroxysmal atrial fibrillation Systolic congestive heart failure ([facility]) Immunizations Name Administration Dates Next Due DTP 11/26/2011 Influenza, Quadrivalent, Hig h Dose, Preservative Free, Intrr 12/07/2021 Influenza, Split 02/27/2013,12/03/2009 Influenza, Trivalent, Recomb inant, Egg Free, Preservative Free, Antibiotic Free, IM (FLUBLOK) 11/18/2014 Social History Tobacco Use Types Packs/Day Years [...] 12/03/2021 How often do you attend chur ch or rastafarian services? More than 4 times per year 12/03/2021 Do you belong to any clubs o r organizations such as bahai groups, unions, fraternal or athletic groups, or [...] you are drinking? Patient does not drink Frequency of Binge Drinking Not on file [...] place to sleep or slept in a custodial (including now)? No 12/03/2021 Personal Safety Answer Date Recorded Have you ever been in or are you currently in a harmful physical or emotional relationship or is someone making you feel afraid or unsafe? Denies 11/11/2023 Sex and Gender Information Value Date Recorded Sex Assigned at Not on file Legal Sex Male 11:50 PM FUEL DOCK ATTENDANT Gender Identity Not on file Sexual Orientation [...] 11/11/2023 6:03 PM CDT Plan of Treatment Not on file Procedures Procedure Name Priority Date/Time Associated Diagnosis Comments EGFR STAT 11/11/2023 6:[address] ABDOMEN PELVIS W CONTRAST ED 04/07/2022 9:39 AM FUEL DOCK ATTENDANT HEMOGLOBIN A1C Routine 12/01/2021 3:39 AM CDT [...] Inclusion of Race in Diagnosing Kidney Disease, JASN 2020). The CKD-EPI equation should not be used for patients with unstable renal function and has not been validated in children and those over 70. Current interpretive data was last reviewed 2020. Blood 11/11/2023 6:12 PM CDT 11/11/2023 6:14 PM CDT us Jj Sim MD LAB BLOOD ORDERABLES F inal Result [facility] Department [place] [address] * CT Abdomen Pelvis W Contrast (04/07/2022 9:39 AM FUEL DOCK ATTENDANT) Anatomical Region Laterality Modality Body N/A Computed Tomogra phy 04/07/2022 10:3 9 AM FUEL DOCK ATTENDANT Narrative 04/07/2022 10:55 AM FUEL DOCK ATTENDANT EXAM DESCRIPTION: CT ABDOMEN PELVIS W CONTRAST [...] Jaylan Escamilla M.D. LB: JAVIER Report ID: [id number] Reading Location: [id number] Procedure Note Jaylan Escamilla MD - 04/07/2022 [...] mm in 2012. No further follow-up per [facility] guidelines. Trace pleural effusions and adjacent [...] Jaylan Escamilla M.D. LB: JAVIER Report ID: [id number] Reading Location: [place] [address] Michael Alcala MD IM CT PROCEDURES F [...] and children were not included. (Diabetes Care 31:6815-9754, 2008). The eAG is not equivalent to a fasting glucose. Blood 12/01/2021 3:39 AM CDT 12/01/2021 3:49 AM CDT Darwin Richard MD LAB BLOOD ORDERABLES F inal Result [facility] [address] [address] Department [place] [address] * COLONOSCOPY REPORT (02/27/2017) Anatomical Region Laterality Modality Other Provider Scanning GI PROCEDURE ORDERABLES Final Result [...] Advance Directives For more information, please contact: [phone] * Full Code (Latest Code Status on File) Date Activated Date Inactivated Comments 11/30/2021 10:18 PM 12/08/2021 12:17 AM Care Teams Workers Compensation Claims Specialist Relationship Specialty Start Date End Date Jens Olsen MD [address] [place] [id number] PCP - General Internal Medicine 11/30/21
--- OUTSIDE RECORDS SUMMARY | 2024-03-28 09:33 | XMS_ITS | Encounter Summary ---
Author Name [facility] [place] [facility] [place] Organization [facility] [place] [facility] [place] Address [address] [place] [address] Care Team Providers Care Farm Crops Teacher Name Role Phone SHANTE TINSLEY Primary Care [...] PART A Jan 13, 2014 PART A [id number] Chaz LINARES PATIENT MEDICARE (WNR) MEDICARE (M) PART B Jan 13, 2014 PART B [id number] 69A Chaz LINARES PATIENT [facility] (WNR) MEDICARE ADVANTAGE [facility] (WNR) Apr 13, 2021 [id number] Chaz LINARES PATIENT Selected Encounter This section includes the information on record at [place] for the Encounter. Date/Time Encounter Type Encounter Description Reason Pro vider Source May 31, 2023 11:29 AM Outpatient Encounter COMMUNITY CARE CONSULT IHE Encounter Template Text not used by VA Plan of Treatment: Future Appointments (+ 6 months) and Future Tests (+/- 45 days) The Plan of Treatment section includes future care activities for the patient from all [place] treatmentfacilities. This section includes future appointments and future orders which are active, pending or scheduled. Future Appointments This section includes appointments that were scheduled to occur 6 months from the date of the Encounter, up to a maximum of 20 appointments. The data comes from all [facility]. Appointment Date/Time Appointment Type Appointme nt Facility Name June 29, 2023 11:30 AM AMBULATORY - NONE [facility] Sep 27, 2023 10:00 AM AMBULATORY - MEDICINE [facility] Active, Pending, and Scheduled Orders This section includes a listing of several types of active, pending, and scheduled orders, including clinic medications orders, diagnostic test orders, procedure orders and consult orders; where the start date of the order is 45 days before the date of the Encounter or 45 days after the date of theEncounter. The data comes from all [facility]. Test Date/Time Test Type Test Details Facility Name Jun 07, 2023 12:00 AM Laboratory - Chemistry Order CYSTATIN C EGFR PANELS (STL-PB-MA) GREEN LI/HEP BLD/PLAS PLASMA [facility] Jun 07, 2023 12:00 AM Laboratory - Microbiology Order C&S URINE URINE,RANDOM [facility] Jun 07, 2023 12:00 AM Laboratory - Chemistry Order TSH W/ REFLEX FT4 (STL) GREEN LI/HEP BLD/PLAS PLASMA [facility] Jun 07, 2023 12:00 AM Laboratory - Chemistry Order PROST. SPECIFIC AG.(PB-STL) GOLD/RED SST SERUM [facility] Jun 07, 2023 12:00 AM Laboratory - Chemistry Order VITAMIN D, 25-HYDROXY GOLD/RED SST SERUM [facility] Jun 07, 2023 12:00 AM Laboratory - Chemistry Order COMPREHENSIVE METABOLIC PANEL GREEN LI/HEP BLD/PLAS PLASMA [facility] Jun 07, 2023 12:00 AM Laboratory - Chemistry Order LIPID PANEL (STL) GREEN LI/HEP BLD/PLAS PLASMA SP [facility] Jun 07, 2023 12:00 AM Laboratory - Chemistry Order CBC BLOOD [facility] Jun 07, 2023 12:00 AM Laboratory - Chemistry Order HGA1C BLOOD [facility] Jun 07, 2023 12:00 AM Laboratory - Chemistry Order MICRAL/CREAT PROFILE (STL) URINE YELLOW SP [facility] Jun 07, 2023 12:00 AM Laboratory - Chemistry Order URINALYSIS (STL-PB) URINE SP [facility] Social History: Smoking Status (Most current) and Tobacco Use (All prior to encounter date) This section includes the most current, and the historical, smoking and tobacco- related health factors from the [place] facility where the Encounter took place. Current Smoking Status This section includes the most current smoking, or tobacco-related health factor, from the [place] facility where the Encounter took place. Date/Time Current Smoking Status Comment Zina pappas Nov 29, 2018 07:51 PM ORYX ADMIT TOBACCO SCREEN NO [facility] Tobacco Use History This section includes a history of the smoking, or tobacco-related health factors, that were collected on or before the date of the Encounter. The data comes from the [place] facility where the Encounter took place. Date/Time Smoking Status/Tobacco Use Comment Augusto penn Nov 29, 2018 07:28 PM LIFETIME NON-USER OF TOBACCO [facility] Encounter Notes: All associated encounter notes This section contains the clinical notes associated to the Encounter. Date/Time Encounter Note(s) Provider Source May 31, 2023 11:30 AM HOME HEALTH CONSUL T: [facility] TITLE: COMMUNITY HEALTH NURSING CONSULT [facility] STANDARD TITLE: HOME HEALTH CONSULT DATE OF NOTE: MAY 31, 2023@11:30 ENTRY DATE: MAY 31, 2023@11:30:41 AUTHOR: PAMELA JC EXP COSIGNER: URGENCY: STATUS: COMPLETED [facility]/[facility] CCN Skilled care needs discussed with Sonia gray [facility] at [phone] with documents regarding patient care needs and billing authorization faxed to agency at [phone]. Reason For Request: Type of Service: Evaluation and Treatment Chief Complaint: leg ulcer Patient History / Clinical Findings / Diagnosis (Co-Morbidities): leg ulcer. ------- Contact Information for provider who will manage the home health episode of care: Provider name: morelia Phone number: [phone] Fax number: [phone] The [place] IS being referred under [place] Pay SENIOR CARE ORDERS Wound Care: Wound #1 Wound #1 Location: right great toe Clean with Apply per wound guidance. Primary Dressing/Topical Medication: gauze telfa. Secure with tape Frequency of Dressing Change: 3x/week Other frequency: Supplies ordered: N/A Patient/family to perform wound care with HH Oversight YES Perform/teach central line care: NA RN may assess and direct wound care: Yes Comments/Additional Instructions Wound #2 Wound #2 Location: left buttock. Clean with Normal Saline Apply normal saline and wound cleanser. Primary Dressing/Topical Medication: telfa. Secure with duoderm. Frequency of Dressing Change: 3x/week Other frequency: Supplies ordered: N/A Patient/family to perform wound care with HH Oversight YES Perform/teach central line care: NA RN may assess and direct wound care: NA Comments/Additional Instructions Referral Source: SHANTE Stringer to sign home health orders Agency to provide care: [address] [place] [address] => Service: Skilled HOME Care - SN/WC - in accordance with [place] Standardized Episode of Care (SEOC) => Frequency: CLINICALLY NECESSARY => Duration: Initial authorization is 60 days. Agency MUST recertify after 60 days to continue care. Authorization maximum up to 180 days/SEOC or upon revocation by ordering provider or or closed by agency - whichever comes first. => NUMBER OF UNITS: CLINICALLY NECESSARY Approve SN visits per SEOC for up to 60 days => Begin service date: 05/31/23 => End service date: 07/31/23 (VA consults terminate automatically after 180 days) => Payer: [employer] CLAIMS INFORMATION [employer] Electronic submission: kasey miller Mailing address: [facility] Opt [address] [place] [address] Secure Please use [employer] Social Security number(SSN) or integration control number (ICN) listed on approved referral as insured ID. [facility] providers must submit claims to [employer] within 180 days from the date of services for outpatient care or date of discharge for inpatient care. Certain protected health information (PHI) may be enclosed; specifically, information related to HIV, sickle cell anemia and substance abuse. This specific PHI may NOT be redisclosed or used by the recipient person or office for any purpose other than that for which the disclosure was made. [Ref. 38 [facility] [[email or web address]] 7332(b)(2)(H)(ii)] The information is being disclosed by [place] for the treatment and care of the named patient in the record. Please note that [place] providers are not required to be PECOS enrolled and all skilled home health consults will be executed with [place] as the payor source. If the payor source is changed to Medicare, the agency will be responsible for ensuring the PECOS status of the ordering provider at all times. /paul/ NICOLÁS LO, RN REGISTERED NURSE Signed: 05/31/2023 11:40 PAMELA JC [facility]
--- OUTSIDE RECORDS SUMMARY | 2024-03-28 09:33 | XMS_ITS | Encounter Summary ---
Author Organization [facility] Address [address] [place] [address] Phone Care Team Providers Care Assistant Infant Toddler Teacher Name Role Phone Jens Olsen MD Primary Care Provider Bere Erwin APRN, DATA SPECIALIST Unavailable Encounter Details Date Type Department Care Team (Late st Contact Info) Description 04/29/2022 Nursing Facility [facility] [address] [place] [address] Clint Fisher, [address] [id number] Social History Tobacco Use Types Packs/Day Years [...] as of this encounter Progress Notes * [place] SummitClint, PAC - 04/29/2022 1:40 PM CDT [facility] NURSING PROGRESS NOTE Hans Gaytan is a 72 y.o. male at [facility] for rehabilitation. Prior to coming to rehabilitation facility patient was hospitalized at [facility] from 03/22 through 03/31 for [...] Says that he is feeling ???okay?? . Denies any GI symptoms. Denies any acute pain. Denies any sleep disturbances. Feels like therapy isgoing well. Planning for discharge early next week. Nursing staff has no concerns about the patient. Chart review shows that GI recommended stool sample which is going to be obtained here. Endoscopy next month. Past Medical History Positives Diagnosis Date ??? [...] use: Not Currently ??? Sexual activity: Not Currently Other Topics Concern ??? Not on file Social History Narrative ??? Not on file Past Surgical History: Procedure Laterality Date ??? CENTRAL VENOUS CATHETER N/A 05/13/2019 Procedure: PICC STUFFED CASING TIER; Surgeon: Imaging, Sahc Invasive; Location: [facility]; Service: Cardiology ??? CENTRAL VENOUS CATHETER N/A 05/27/2019 Procedure: PICC STUFFED CASING TIER; Surgeon: Imaging, Sahc Invasive; [facility]; Service: Cardiology ??? CENTRAL VENOUS CATHETER N/A 03/29/2022 Procedure: PICC STUFFED CASING TIER; Surgeon: Imaging, Sahc Invasive; [facility]; Service: Cardiology Review of Systems: A 14 point comprehensive review of systems was negative except what is documented in interval history above. Objective: Exam: Vital Signs: B/P: 136/73 Pulse: 80 Respirations: 18 Temperature: 97.5 General: Well developed, well nourished, in no [...] judgement and memory Lab Results: 04/07/2022 in [facility] emergency room, CBC with hemoglobin 10.3, [...] None Assessment/Plan: Generalized weakness and deconditioning Receiving [facility] care and physical therapy rehabilitation 04/29: Continues to improve. Planning for discharge back home next week. Acute GI bleeding 04/08: Highly suspicious for [...] 04/22: Has appointment with GI on 04/26. 04/29: Stable. Followed up with GI earlier this week, stool studies ordered for C diff which has been collected here. Has endoscopic be scheduled for 06/01. Obstructive sleep apnea Wears BiPAP at night [...] scheduled for 04/25/202204/26: CO2 levels trending down. Episode of nausea and vomiting and diarrhea with hypotension overnight on 04/07 Emergency workup including labs and CT of abdomen were reassuring and patient was sent back to the facility with Zofran. Right great toe cellulitis [place] to be the cause of his sepsis [...] this patient. This note was dictated using Epip[employer]te fluency dictation system and there may be errors in yoga teacher. Despite proof reading the note, there may be mistakes and I apologize for those. By: TAMMI Estrada, 04/29/2022 1:41 PM CDT documented in this encounter Plan [...] documented as of this encounter Care Teams Assistant Infant Toddler Teacher Relationship Specialty Start Date End Date Jens Olsen MD [address] [place] [address] PCP - General Internal Medicine 03/24/22 Bere Erwin APRN, DATA SPECIALIST [address] [place] [address] Nurse Practitioner Advanced Practice Nurse 04/26/22 documented as of this encounter
--- OUTSIDE RECORDS SUMMARY | 2024-03-28 09:33 | XMS_ITS | Encounter Summary ---
Author Organization [facility] Address [address] [place] [address] Phone Care Team Providers Care Light Out Examiner Name Role Phone Shante Olsen MD Primary Care Provider Bere Erwin APRN, FINISH OFF OPERATOR Unavailable Encounter Details Date Type Department Care Team (Late st Contact Info) Description 05/02/2022 Nursing Facility [facility] [address] [place] [address] Clint Fisher, [address] [id number] Social History Tobacco Use Types Packs/Day Years [...] Progress Notes * Clint Fisher, TAMMI - 05/02/2022 2:14 PM CDT [facility] LONG TERM DISCHARGE SUMMARY Name: Hans Gaytan Age: 72 y.o. : 1950 Attending Physician: Kailyn att. providers found Admission Date/Time: 04/01/2022 Expected Discharge Date: 05/02/2022 Primary Care Physician: SHANTE OLSEN MD Discharging Provider: TAMMI Estrada INSTRUCTIONS FOR PHYSICIANS ON FOLLOW UP AFTER DISCHARGE: Follow-up with PCP in 1-2 weeks. Keep follow-up appointment with Gastroenterology. Discharge Instructions: Discharge Condition: improved Disposition: Home Diet: Cardiac Diet and Diabetic Diet Activity: activity as tolerated Discharge Diagnoses: Generalized weakness and deconditioning, right great toe cellulitis, chronic atrial fibrillation, obstructive sleep apnea, previous CVA, diabetes mellitus type 2, morbid obesity,hypertension, COPD with chronic respiratory failure on 2 L supplemental oxygen, hypothyroidism, acute upper GI bleeding Admitting Diagnoses: Generalized weakness and deconditioning, right great toe cellulitis, chronic atrial fibrillation, obstructive sleep apnea, previous CVA, diabetes mellitus type 2, morbid obesity,hypertension, COPD with chronic respiratory failure on 2 L supplemental oxygen, hypothyroidism SKILLED CARE COURSE: Hans Gaytan was admitted to shelter facility for acute care rehabilitation. Prior to coming to rehabilitation facility patient was hospitalized at [facility] from 03/22 through 03/31 for influenza a infection and cellulitis of the lower extremity resulting in streptococcal septicemia. Upon arrival to rehabilitation facility his respiratory status was greatly improved and his antibiotic regimen have been deescalated to p.o. meds. Had Hematoemesis just prior to discharge from hospital, started on PPI therapy and Eliquis was held. Shortly after arrival to facility he was having episodes with vomiting and diarrhea. He had dark brown stool on my exam that was heme-positive. PPI therapy was escalated. Eliquis was held 14 days total. After some time the GI symptoms resolved. His hemoglobin was monitored closely and remained stable. Eliquis has been restarted at this time. He was referred to and is already been seen by Gastroenterology who was ordered of stool specimen to test for C [facility] should be pending at this time but I do not see the results yet. He is not having any diarrhea or GI symptoms however. Has GI follow-up and endoscopy scheduled for 06/01/2022 which she is to go to without fail. He finished his course of antibiotics for the cellulitis in the facility. There are no signs or symptoms of cellulitis at this time. While at the rehabilitation facility, the patient received shelter care and physical therapy rehabilitation. The patient has done well with their rehabilitation and has regained enough strength and ambulationthat it is felt that he can safely be discharged. Today he is sitting comfortably in his chair. Says he feels ???a lot better?? . He denies any acutesymptoms or concerns. He lives with his and is looking for to going home. His daughter will bepicking him up later today. Exam Day of Discharge: Vital Signs: B/P: 136/73 Pulse: 76 Respirations: 20 Temperature: 97.5 General: Well developed, well nourished, [...] deformities, joint mobility appears intact, no clubbing Neuro: Non-focal, CN intact, sensory and motor intact - dysarthria from previous CVA Psychological: alert and oriented X3, appropriate mood and affect, Intact judgement and memory Lab / Imaging Review: Lab Results: 04/07/2022 in [facility] emergency room, CBC with hemoglobin [...] unremarkable. Magnesium within normal limits. Imaging: None DISCHARGE PLAN: He will be discharging later today. Daughter is picking him up to take him home where he lives withhis . Home health ordered for nursing care and PT/OT. Understands to continue all current medications as directed and follow up with PCP in 1-2 weeks. Understands to follow-up with GI next month. I have spent time coordinating care for this shelter facility discharge: Greater than 30 minutes spent in coordinating care This note was dictated using [employer] fluency dictation system and there may be errors in electronic maintenance supervisor. Despite proof reading the note, there may be mistakes and I apologize for those. Signed: TAMMI Estrada, 05/02/2022, 2:14 PM CDT documented in this encounter Plan [...] documented as of this encounter Care Teams Light Out Examiner Relationship Specialty Start Date End Date Shante Olsen MD [address] [place] [address] PCP - General Internal Medicine 03/24/22 Bere Erwin APRN, FINISH OFF OPERATOR [address] [place] [address] Nurse Practitioner Advanced Practice Nurse 04/26/22 documented as of this encounter
--- OUTSIDE RECORDS SUMMARY | 2024-03-28 09:33 | XMS_ITS | Encounter Summary ---
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 This section includes the names of all active insurance providers for the patient. Insurance Provider Type of Coverage Plan Name Start of Policy Coverage End of Policy Coverage Group Number Member ID Insurance Provider's Telephone Number Policy Ferreira's Name Patient's Relationship to Policy Frereira MEDICARE (WNR) MEDICARE (M) PART A Jan 13, 2014 PART A [id number] Chaz LINARES PATIENT MEDICARE (WNR) MEDICARE (M) PART B Jan 13, 2014 PART B [id number] Chaz LINARES PATIENT [facility] (WNR) MEDICARE [facility]AGE [facility] (WNR) Apr 13, 2021 [id number] [phone] Chaz LINARES PATIENT Selected Encounter This section includes the information on record at [place] for the Encounter. Date/Time Encounter Type Encounter Description Reason Pro vider Source Apr 26, 2023 09:30 AM Outpatient Encounter PRIMARY CARE/MEDICINE IHE Encounter Template Text not used by [facility] Plan of Treatment: Future Appointments (+ 6 months) and Future Tests (+/- 45 days) The Plan of Treatment section includes future care activities for the patient from all [place] [facility] This section includes future appointments and future orders which are active, pending or scheduled. Future Appointments This section includes appointments that were scheduled to occur 6 months from the date of the Encounter, up to a maximum of 20 appointments. The data comes from all [facility]. Appointment Date/Time Appointment Type Appointme nt Facility Name May 31, 2023 08:00 AM AMBULATORY - NONE [facility] May 31, 2023 11:30 AM AMBULATORY - MEDICINE [facility] June 29, 2023 11:30 AM AMBULATORY - NONE [facility] Sep 27, 2023 10:00 AM AMBULATORY - MEDICINE [facility] Active, Pending, and Scheduled Orders This section includes a listing of several types of active, pending, and scheduled orders, including clinic medications orders, diagnostic test orders, procedure orders and consult orders; where the start date of the order is 45 days before the date of the Encounter or 45 days after the date of theEncounter. The data comes from all [facility]. Test Date/Time Test Type Test Details Facility Name Jun 07, 2023 12:00 AM Laboratory - Chemistry Order CYSTATIN C EGFR PANELS (STL-PB-MA) GREEN LI/HEP BLD/PLAS PLASMA [facility] Jun 07, 2023 12:00 AM Laboratory - Chemistry Order PROST. SPECIFIC AG.(PB-STL) GOLD/RED SST SERUM [facility] Jun 07, 2023 12:00 AM Laboratory - Microbiology Order C&S URINE URINE,RANDOM [facility] Jun 07, 2023 12:00 AM Laboratory - Chemistry Order TSH W/ REFLEX FT4 (STL) GREEN LI/HEP BLD/PLAS PLASMA [facility] Jun 07, 2023 12:00 AM Laboratory - Chemistry Order VITAMIN D, 25-HYDROXY GOLD/RED SST SERUM [facility] Jun 07, 2023 12:00 AM Laboratory - Chemistry Order COMPREHENSIVE METABOLIC PANEL GREEN LI/HEP BLD/PLAS PLASMA [facility] Jun 07, 2023 12:00 AM Laboratory - Chemistry Order LIPID PANEL (STL) GREEN LI/HEP BLD/PLAS PLASMA [facility] Jun 07, 2023 12:00 AM Laboratory - Chemistry Order CBC BLOOD SP [facility] Jun 07, 2023 12:00 AM Laboratory - Chemistry Order HGA1C BLOOD SP [facility] Jun 07, 2023 12:00 AM Laboratory - Chemistry Order URINALYSIS (STL-PB) URINE SP [facility] Jun 07, 2023 12:00 AM Laboratory - Chemistry Order MICRAL/CREAT PROFILE (STL) URINE YELLOW SP [facility] Social History: Smoking Status (Most current) and Tobacco Use (All prior to encounter date) This section includes the most current, and the historical, smoking and tobacco- related health factors from the [place] facility where the Encounter took place. Current Smoking Status This section includes the most current smoking, or tobacco-related health factor, from the [place] facility where the Encounter took place. Date/Time Current Smoking Status Comment Facil ity Jan 20, 2022 11:30 AM VA-TOBACCO NEVER USED [facility] Tobacco Use History This section includes a history of the smoking, or tobacco-related health factors, that were collected on or before the date of the Encounter. The data comes from the [place] facility where the Encounter took place. Date/Time Smoking Status/Tobacco Use Comment F acility Oct 12, 2020 02:30 PM VA-TOBACCO FORMER USER [facility] Oct 12, 2020 02:30 PM VA-TOBACCO QUIT 15 YRS OR MORE [facility] Oct 23, 2019 02:00 PM VA-TOBACCO FORMER USER [facility] Oct 23, 2019 02:00 PM VA-TOBACCO QUIT 15 YRS OR MORE [facility] Mar 22, 2018 02:38 PM VA-TOBACCO FORMER USER [facility] Mar 22, 2018 02:38 PM VA-TOBACCO QUIT 15 YRS OR MORE [facility] Apr 24, 2017 01:40 PM QUIT TOBACCO >7 YEARS AGO [facility] Aug 25, 2016 11:27 AM QUIT TOBACCO >7 YEARS AGO [facility] Feb 16, 2016 10:24 AM QUIT TOBACCO >7 YEARS AGO [facility] Feb 02, 2015 09:42 AM QUIT TOBACCO >7 YEARS AGO [facility] Encounter Notes: All associated encounter notes This section contains the clinical notes associated to the Encounter. Date/Time Encounter Note(s) Provider Source Apr 26, 2023 09:30 AM PRIMARY CARE TELEP DAIJA ENCOUNTER NOTE: LOCAL TITLE: PRIMARY CARE PROVIDER TELEPHONE CONTACT STL STANDARD TITLE: PRIMARY CARE TELEPHONE ENCOUNTER NOTE DATE OF NOTE: APR 26, 2023@09:30 ENTRY DATE: APR 26, 2023@09:30:49 AUTHOR: SHANTE TINSLEY EXP COSIGNER: URGENCY: STATUS: COMPLETED left message pt to return call vvc set up for this date/time. pt no showed. /es/ SHANTE TINSLEY MD STAFF PHYSICIAN Signed: 04/26/2023 09:31 SHANTE TINSLEY [facility]
--- OUTSIDE RECORDS SUMMARY | 2024-03-28 09:34 | XMS_ITS ---
Author Organization [facility] Address Unknown Allergies, Adverse Reactions, Alerts Substance Reaction Status Noted Date Resolved Date Lisinopril active 05/31/2019 Problems Problem Status Start Date End Date SEPSIS, UNSPECIFIED ORGANISM (Primary) (A41.9 - ICD-10-CM) ACTIVE 03/31/2022 CARDIAC ARREST, CAUSE UNSPEC IFIED (Primary) (I46.9 - ICD-10-CM) RESOLVED 05/28/2019 05/29/2019 OSTEOMYELITIS, UNSPECIFIED (M86.9 - ICD-10-CM) ACTIVE 03/31/2022 CHRONIC ATRIAL FIBRILLATION, UNSPECIFIED (I48.20 - ICD-10-CM) RESOLVED 05/28/2019 05/29/2019 CELLULITIS OF LEFT LOWER LIMB (L03.116 - ICD-10-CM) AC TIVE 03/31/2022 GASTRO-ESOPHAGEAL REFLUX DIS EASE WITHOUT ESOPHAGITIS (K21.9 - ICD-10-CM) RESOLVED 05/28/2019 05/29/2019 PNEUMONIA, UNSPECIFIED ORGANISM (J18.9 - ICD-10-CM) AC TIVE 03/31/2022 TYPE 2 DIABETES MELLITUS WIT H DIABETIC CHRONIC KIDNEY DISEASE (E11.22 - ICD-10-CM) RESOLVED 05/28/2019 05/29/2019 INFLUENZA DUE TO UNIDENTIFIE D INFLUENZA VIRUS WITH OTHER RESPIRATORY MANIFESTATIONS (J11.1 - ICD-10-CM) ACTIVE 023 ESSENTIAL (PRIMARY) HYPERTENSION (I10 - ICD-10-CM) RES OLVED 05/28/2019 05/29/2019 CHRONIC OBSTRUCTIVE PULMONAR Y DISEASE, UNSPECIFIED (J44.9 - ICD-10-CM) ACTIVE 03/31/2022 OBSTRUCTIVE SLEEP APNEA (DANITZA LT) (PEDIATRIC) (G47.33 - ICD-10-CM) RESOLVED 05/28/2019 05/29/2019 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 - ICD-10-CM) ACTIVE 03/31/2022 MORBID (SEVERE) OBESITY DUE TO EXCESS CALORIES (E66.01 - ICD-10-CM) RESOLVED 05/28/2019 05/29/2019 TYPE 2 DIABETES MELLITUS WIT H DIABETIC CHRONIC KIDNEY DISEASE (E11.22 - ICD-10-CM) ACTIVE 03/31/2022 CHRONIC KIDNEY DISEASE, STAG E 3 (MODERATE) (N18.3 - ICD-10-CM) RESOLVED 05/28/2019 05/29/2019 TYPE 2 DIABETES MELLITUS WIT H UNSPECIFIED COMPLICATIONS (E11.8 - ICD-10-CM) ACTIVE 03/31/2022 ACUTE AND CHRONIC RESPIRATOR Y FAILURE, UNSPECIFIED WHETHER WITH HYPOXIA OR HYPERCAPNIA (J96.20 - ICD-10-CM) RESOLVED 05/28/2019 05/29/2019 APHASIA (R47.01 - ICD-10-CM) ACTIVE 03/31/2022 SEPSIS, UNSPECIFIED ORGANISM (A41.9 - ICD-10-CM) RESOL NANCY 05/28/2019 05/29/2019 MORBID (SEVERE) OBESITY DUE TO EXCESS CALORIES (E66.01 - ICD-10-CM) ACTIVE 03/31/2022 CHRONIC OBSTRUCTIVE PULMONAR Y DISEASE, UNSPECIFIED (J44.9 - ICD-10-CM) RESOLVED 05/28/2019 05/29/2019 DYSPHAGIA, UNSPECIFIED (R13.10 - ICD-10-CM) ACTIVE 03/31/2022 OSTEOMYELITIS, UNSPECIFIED (M86.9 - ICD-10-CM) RESOLVE D 05/28/2019 05/29/2019 NEED FOR ASSISTANCE WITH PER DANIEL CARE (Z74.1 - ICD-10-CM) ACTIVE 03/31/2022 PROTEUS (MIRABILIS) (MORGANI I) THE CAUSE OF DISEASES CLASSIFIED ELSEWHERE (B96.4 - ICD-10-CM) RESOLVED 05/28/2019 05/29/2019 MUSCLE WEAKNESS (GENERALIZED) (M62.81 - ICD-10-CM) ACT DOMONIQUE 03/31/[address] METHICILLIN SUSCEPTIBLE STAP HYLOCOCCUS AUREUS INFECTION THE CAUSE OF DISEASES CLASSIFIED ELSEWHERE (B95.61 - ICD-10-CM) RESOLVED 05/28/2019 0 DIFFICULTY IN WALKING, NOT E LSEWHERE CLASSIFIED (R26.2 - ICD-10-CM) ACTIVE 03/31/2022 DIFFICULTY IN WALKING, NOT E LSEWHERE CLASSIFIED (R26.2 - ICD-10-CM) RESOLVED 05/28/2019 05/29/2019 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) ACTIVE 03/31/2022 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) ACTIVE 03/31/2022 COGNITIVE COMMUNICATION DEFICIT (R41.841 - ICD-10-CM) ACTIVE 03/31/2022 ESSENTIAL (PRIMARY) HYPERTENSION (I10 - ICD-10-CM) ACT DOMONIQUE 03/31/2022 UNSPECIFIED ATRIAL FIBRILLATION (I48.91 - ICD-10-CM) A CTIVE 03/31/2022 CHRONIC KIDNEY DISEASE, STAG E 3 UNSPECIFIED (N18.30 - ICD-10-CM) ACTIVE 03/31/2022 OBSTRUCTIVE SLEEP APNEA (DANITZA LT) (PEDIATRIC) (G47.33 - ICD-10-CM) ACTIVE 03/31/2022 HYPERLIPIDEMIA, UNSPECIFIED (E78.5 - ICD-10-CM) ACTIVE 03/31/2022 GASTROINTESTINAL HEMORRHAGE, UNSPECIFIED (K92.2 - ICD-10-CM) ACTIVE 03/31/2022 UNSPECIFIED HEARING LOSS, UN SPECIFIED EAR (H91.90 - ICD-10-CM) ACTIVE 03/31/2022 CHRONIC RESPIRATORY FAILURE, UNSPECIFIED WHETHER WITH HYPOXIA OR HYPERCAPNIA (J96.10 - ICD-10-CM) RESOLVED 03/31/2022 03/31/2022 Results * BASIC MET PNL INCL GFR (BMP) Performed by: [place] [address] [facility], [place] [address] [facility] [address] Component Value Range Date POTASSIUM 4.9 mEq/L 3.5-5.3 04/25/2022 05:1 6 pm EDT SODIUM 139 mEq/L 136-145 04/25/2022 05:1 6 pm EDT BUN (UREA NITROGEN) 21 mg/dL 7-25 04/26/19 23 05:16 pm EDT CARBON DIOXIDE (CO2) 39 mEq/L 21-33 023 05:16 pm EDT CHLORIDE 91 mEq/L 98-110 04/25/2022 05:1 6 pm EDT [id number]-[id number] 40 mL/min/1.73 m2 >60 04/25/2022 05:16 pm EDT GFR- 48 mL/min/1.73 m2 >60 05:16 pm EDT BUN/CREATININE RATIO 12 6-25 023 05:16 pm EDT CREATININE 1.7 mg/dL 0.7-1.3 04/25/2022 05:1 6 pm EDT GLUCOSE 136 04/25/2022 05:1 6 pm EDT CALCIUM 9.8 mg/dL 8.6-10.3 04/25/2022 05:1 6 pm EDT * Individual Tests: BASIC MET PNL INCL GFR (BMP) / MAGNESIUM Performed by: [address], [place] [address] Component Value Range Date MAGNESIUM 2.0 mg/dL 1.5-2.5 04/25/2022 05:1 6 pm EDT * BASIC MET PNL INCL GFR (BMP) Performed by: [address], [place] [address] Component Value Range Date CALCIUM 9.1 mg/dL 8.6-10.3 04/18/2022 06:2 5 pm EST GLUCOSE 129 04/18/2022 06:2 5 pm EST * CBC W/DIFF Performed by: [address], [place] [address] Component Value Range Date NUCLEATED RBC 0.1 NRBC/100 WBC <1.0 04/18/2022 06:25 pm EST * BASIC MET PNL INCL GFR (BMP) Performed by: [address], [place] [id number] Component Value Range Date GFR- 72 mL/min/1.73 m2 >60 06:25 pm EST CREATININE 1.2 mg/dL 0.7-1.3 04/18/2022 06:2 5 pm EST * CBC W/DIFF Performed by: [address], [place] [address] Component Value Range Date MPV 7.7 fL 6.5-12.0 04/18/2022 06:2 5 pm EST MONOCYTES (ABSOLUTE) 0.60 K/uL 0.15-1.10 023 06:25 pm EST * BASIC MET PNL INCL GFR (BMP) Performed by: [address], [place] [id number] Component Value Range Date BUN/CREATININE RATIO 14 6-25 023 06:25 pm EST * CBC W/DIFF Performed by: [address], [place] [id number] Component Value Range Date EOS (ABSOLUTE) 0.10 K/uL 0.20-0.80 04/18/2022 06 :25 pm EST EOS 2.8 % 0.0-8.0 04/18/2022 06:2 5 pm EST NEUTS (ABSOLUTE) 2.90 K/uL 1.50-7.60 04/18/2022 06:25 pm EST LYMPHS 17.9 % 13.0-48.0 04/18/2022 06:2 5 pm EST BASO 0.3 % 0.0-2.0 04/18/2022 06:2 5 pm EST MONOCYTES 12.8 % 2.0-12.0 04/18/2022 06:2 5 pm EST PLATELET 162 K/cmm 150-450 04/18/2022 06:2 5 pm EST MCV 98.0 fL 80.0-100.0 04/18/2022 06:2 5 pm EST LYMPHS (ABSOLUTE) 0.80 K/uL 0.90-5.50 04/18/2022 06:25 pm EST * BASIC MET PNL INCL GFR (BMP) Performed by: [address], [place] [id number] Component Value Range Date [id number] 59 mL/min/1.73 m2 >60 04/18/2022 06:25 pm EST * CBC W/DIFF Performed by: [address], [place] [id number] Component Value Range Date RDW 15.3 % 11.0-16.0 04/18/2022 06:2 5 pm EST NEUTROPHILS 66.2 % 40.0-80.0 04/18/2022 06:2 5 pm EST WBC 4.4 K/cmm 4.5-10.8 04/18/2022 06:2 5 pm EST HEMATOCRIT 35.2 % 42.0-54.0 04/18/2022 06:2 5 pm EST MCH 31.8 pg 26.0-35.0 04/18/2022 06:2 5 pm EST RBC 3.59 M/cmm 4.00-6.60 04/18/2022 06:2 5 pm EST MCHC 32.5 g/dL 31.0-36.5 04/18/2022 06:2 5 pm EST * BASIC MET PNL INCL GFR (BMP) Performed by: [address], [place] [address] Component Value Range Date CARBON DIOXIDE (CO2) >45 mEq/L 21-33 023 06:25 pm EST CHLORIDE 86 mEq/L 98-110 04/18/2022 06:2 5 pm EST SODIUM 142 mEq/L 136-145 04/18/2022 06:2 5 pm EST BUN (UREA NITROGEN) 17 mg/dL 7-25 04/19/19 06:25 pm EST * CBC W/DIFF Performed by: [address], [place] [address] Component Value Range Date HEMOGLOBIN 11.4 g/dL 14.0-18.0 04/18/2022 06:2 5 pm EST * BASIC MET PNL INCL GFR (BMP) Performed by: [address], [place] [address] Component Value Range Date POTASSIUM 3.3 mEq/L 3.5-5.3 04/18/2022 06:2 5 pm EST * CBC W/DIFF Performed by: [address], [place] [address] Component Value Range Date HEMOGLOBIN 10.5 g/dL 14.0-18.0 04/11/2022 02:2 6 pm EST * CMP-COMPREHENSIVE METABOLIC PNL Performed by: [address], [place] [address] Component Value Range Date POTASSIUM 3.9 mEq/L 3.5-5.3 04/11/2022 02:2 6 pm EST SODIUM 138 mEq/L 136-145 04/11/2022 02:2 6 pm EST BUN (UREA NITROGEN) 21 mg/dL 7-25 04/11/19 02:26 pm EST CARBON DIOXIDE (CO2) 42 mEq/L 21-33 023 02:26 pm EST CHLORIDE 90 mEq/L 98-110 04/11/2022 02:2 6 pm EST * CBC W/DIFF Performed by: [address], [place] [address] Component Value Range Date RBC 3.32 M/cmm 4.00-6.60 04/11/2022 02:2 6 pm EST MCHC 32.4 g/dL 31.0-36.5 04/11/2022 02:2 6 pm EST MCH 31.6 pg 26.0-35.0 04/11/2022 02:2 6 pm EST HEMATOCRIT 32.4 % 42.0-54.0 04/11/2022 02:2 6 pm EST WBC 9.0 K/cmm 4.5-10.8 04/11/2022 02:2 6 pm EST * CMP-COMPREHENSIVE METABOLIC PNL Performed by: [address], [place] [address] Component Value Range Date AST (SGOT) 13 IU/L 4-40 04/11/2022 02:2 6 pm EST ALBUMIN 2.9 g/dL 3.5-5.5 04/11/2022 02:2 6 pm EST PROTEIN, TOTAL 6.1 g/dL 6.0-8.3 04/11/2022 02 :26 pm EST ALKALINE PHOS 46 IU/L 34-136 04/11/2022 02: 26 pm EST * CBC W/DIFF Performed by: [address], [place] [address] Component Value Range Date RDW 14.8 % 11.0-16.0 04/11/2022 02:2 6 pm EST NEUTROPHILS 69.8 % 40.0-80.0 04/11/2022 02:2 6 pm EST * CMP-COMPREHENSIVE METABOLIC PNL Performed by: [address], [place] [address] Component Value Range Date URH-YHQ-[id number] 50 mL/min/1.73 m2 >60 04/11/2022 02:26 pm EST GFR- 60 mL/min/1.73 m2 >60 02:26 pm EST * CBC W/DIFF Performed by: [address], [place] [address] Component Value Range Date MCV 97.5 fL 80.0-100.0 04/11/2022 02:2 6 pm EST * CMP-COMPREHENSIVE METABOLIC PNL Performed by: [address], [place] [address] Component Value Range Date ALT (SGPT) 10 IU/L 4-55 04/11/2022 02:2 6 pm EST * CBC W/DIFF Performed by: [address], [place] [address] Component Value Range Date PLATELET 105 K/cmm 150-450 04/11/2022 02:2 6 pm EST LYMPHS (ABSOLUTE) 1.20 K/uL 0.90-5.50 04/11/2022 02:26 pm EST MONOCYTES 14.9 % 2.0-12.0 04/11/2022 02:2 6 pm EST LYMPHS 13.8 % 13.0-48.0 04/11/2022 02:2 6 pm EST BASO 0.4 % 0.0-2.0 04/11/2022 02:2 6 pm EST EOS 1.1 % 0.0-8.0 04/11/2022 02:2 6 pm EST NEUTS (ABSOLUTE) 6.30 K/uL 1.50-7.60 04/11/2022 02:26 pm EST EOS (ABSOLUTE) 0.10 K/uL 0.20-0.80 04/11/2022 02 :26 pm EST MONOCYTES (ABSOLUTE) 1.30 K/uL 0.15-1.10 023 02:26 pm EST * CMP-COMPREHENSIVE METABOLIC PNL Performed by: [address], [place] [address] Component Value Range Date BUN/CREATININE RATIO 15 6-25 023 02:26 pm EST A/G RATIO 0.9 0.8-2.0 04/11/2022 02:2 6 pm EST * CBC W/DIFF Performed by: [place] [address] [facility] [address], [place] [address] [facility] [id number] Component Value Range Date MPV 8.5 fL 6.5-12.0 04/11/2022 02:2 6 pm EST NUCLEATED RBC 0.1 NRBC/100 WBC <1.0 04/11/2022 02:26 pm EST * CMP-COMPREHENSIVE METABOLIC PNL Performed by: [place] [address] [facility] [address], [place] [address] [facility] [address] Component Value Range Date CREATININE 1.4 mg/dL 0.7-1.3 04/11/2022 02:2 6 pm EST GLUCOSE 117 04/11/2022 02:2 6 pm EST CALCIUM 9.1 mg/dL 8.6-10.3 04/11/2022 02:2 6 pm EST BILIRUBIN, TOTAL 0.5 mg/dL 0.2-1.2 04/11/2022 02:26 pm EST Encounters Encounter Performer Performer Role Encounter Diagnoses Location Date Discharge - Discharged / Transferred to another hospital - [facility] 05/28/2019 06:00 pm EDT - 05/29/2019 01:45 pm EDT Discharge - Discharged to home or self care - Home - Private home/apt. with no home health services [facility] 03/31/2022 05:20 pm EST - 05/02/2022 02:38 pm EDT Immunizations Vaccine Date SARS-COV-2 (COVID-19) 11/09/2020 01:00 a m EDT SARS-COV-2 (COVID-19) 10/12/2020 01:00 a m EDT Flucelvax (Influenza vaccine) 04/29/2022 01:00 pm EDT Pneumovax (PCV 20) 04/19/2022 06:00 am EST Social History
--- OUTSIDE RECORDS SUMMARY | 2024-03-28 09:34 | XMS_ITS | Encounter Summary ---
Author Name [facility] [place] [facility] [place] Address [address] [place] [address] Care Team Providers Care Monorail Operator Name Role Phone SHANTE TINSLEY Primary Care [...] PART A Jan 13, 2014 PART A [id number] Chaz LINARES PATIENT MEDICARE (WNR) MEDICARE (M) PART B Jan 13, 2014 PART B [id number] Chaz LINARES PATIENT [facility] (WNR) MEDICARE ADVANTAGE [facility] (WNR) Apr 13, 2021 [id number] [phone] Chaz LINARES PATIENT Selected Encounter This section includes the information on record at [place] for the Encounter. Date/Time Encounter Type Encounter Description Reason Provider Source May 31, 2023 11:30 AM OFFICE O/P EST MOD 30 MIN PRIMARY CARE/MEDICINE ICD-10-CM I10 Essential (primary) hypertension ENDY TINSLEY Encounter Template Text not used by [facility] Assessments - Encounter Diagnoses This section includes the primary and secondary diagnoses documented for the Encounter. Date/Time Primary/Secondary Diagnosis Diagnosis Name Provider Source May 31, 2023 12:03 PM PRIMARY Essential (primary) hypertension RADHA TINSLEY [facility] May 31, 2023 12:03 PM SECONDARY Cerebral infarction, unspecified RADHA TINSLEY [facility] May 31, 2023 12:03 PM SECONDARY Disorder of kidney and ureter, unspecified RADHA TINSLEY [facility] May 31, 2023 12:03 PM SECONDARY Hypothyroidism, unspecified [facility] May [facility], [facility]23 12:03 PM SECONDARY Morbid (severe) obesity due to excess calories [facility] May 31, 2023 12:03 PM SECONDARY Obstructive sleep apnea (adult) (pediatric) [facility] May 31, 2023 12:03 PM SECONDARY Type 2 diabetes mellitus without complications [facility] May 31, 2023 12:03 PM SECONDARY Unspecified abdominal pain ENDY TINSLEYE [place] [facility] May 31, 2023 12:03 PM SECONDARY Unspecified atrial fibrillation ENDY TINSLEYE [place] [facility] Plan of Treatment: Future Appointments (+ 6 [...] 20 appointments. The data comes from all [place] treatment facilities. Appointment Date/Time Appointment Type Appointme nt Facility Name June 29, 2023 11:30 AM AMBULATORY - NONE [facility] Sep 27, 2023 10:00 AM AMBULATORY - MEDICINE [facility] Active, Pending, and Scheduled Orders This section includes a listing of several types of active, pending, and scheduled orders, including clinic medications orders, diagnostic test orders, procedure orders and consult orders; where the start date of the order is 45 days before the date of the Encounter or 45 days after the date of theEncounter. The data comes from all [place] treatment facilities. Test Date/Time Test Type Test Details Facility Name Jun 07, 2023 12:00 AM Laboratory - Chemistry Order CYSTATIN C EGFR PANELS (STL-PB-MA) GREEN LI/HEP BLD/PLAS PLASMA SP [facility] Jun 07, 2023 12:00 AM Laboratory - Microbiology Order C&S URINE URINE,RANDOM [facility] Jun 07, 2023 12:00 AM Laboratory - Chemistry Order PROST. SPECIFIC AG.(PB-STL) GOLD/RED SST SERUM [facility] Jun 07, 2023 12:00 AM Laboratory - Chemistry Order TSH W/ REFLEX FT4 (STL) GREEN LI/HEP BLD/PLAS PLASMA [facility] Jun 07, 2023 12:00 AM Laboratory - Chemistry Order VITAMIN D, 25-HYDROXY GOLD/RED SST SERUM [facility] Jun 07, 2023 12:00 AM Laboratory - Chemistry Order COMPREHENSIVE METABOLIC PANEL GREEN LI/HEP BLD/PLAS PLASMA [facility] Jun 07, 2023 12:00 AM Laboratory - Chemistry Order LIPID PANEL (STL) GREEN LI/HEP BLD/PLAS PLASMA SP ONCE [facility] Jun 07, 2023 12:00 AM Laboratory - Chemistry Order HGA1C BLOOD [facility] Jun 07, 2023 12:00 AM Laboratory - Chemistry Order URINALYSIS (STL-PB) URINE [facility] Jun 07, 2023 12:00 AM Laboratory - Chemistry Order CBC BLOOD [facility] Jun 07, 2023 12:00 AM Laboratory - Chemistry Order MICRAL/CREAT PROFILE (STL) URINE YELLOW [facility] Social History: Smoking Status (Most [...] Encounter took place. Date/Time Current Smoking Status Jasen pappas May 31, 2023 11:30 AM NE-TOBACCO NEVER USED [facility] Tobacco Use History This section includes a history of the smoking, or tobacco-related health factors, that were collected on or before the date of the Encounter. The data comes from the [place] facility where the Encounter took place. Date/Time Smoking Status/Tobacco Use Comment F acility Jan 20, 2022 11:30 AM VA-TOBACCO NEVER USED [facility] Oct 12, 2020 02:30 PM VA-TOBACCO FORMER USER [facility] Oct 12, 2020 02:30 PM VA-TOBACCO QUIT 15 YRS OR MORE [facility] Oct 23, 2019 02:00 PM VA-TOBACCO FORMER USER [facility] Oct 23, 2019 02:00 PM VA-TOBACCO QUIT 15 YRS OR MORE [facility] Mar 22, 2018 02:38 PM VA-TOBACCO FORMER USER [facility] Mar 22, 2018 02:38 PM VA-TOBACCO QUIT 15 YRS OR MORE [facility] Apr 24, 2017 01:40 PM QUIT TOBACCO >7 YEARS AGO [facility] Aug 25, 2016 11:27 AM QUIT TOBACCO >7 YEARS AGO [facility] Feb 16, 2016 10:24 AM QUIT TOBACCO >7 YEARS AGO [facility] Feb 02, 2015 09:42 AM QUIT TOBACCO >7 YEARS AGO [facility] Encounter Notes: All associated encounter notes This section contains the clinical notes associated to the Encounter. Date/Time Encounter Note(s) Provider Source Jul 25, 2023 02:39 PM ADMINISTRATIVE NOT E: LOCAL TITLE: ADMINISTRATIVE STL STANDARD TITLE: ADMINISTRATIVE NOTE DATE OF NOTE: JUL 25, 2023@14:39 ENTRY DATE: JUL 25, 2023@14:39:07 AUTHOR: SHANTE TINSLEY COSIGNER: URGENCY: STATUS: COMPLETED received notfification from Home health (haritha sheppard rn coordination) that the pt has not had his dressing changed between visits and pt has new decubitus ulcers on buttocks. along with leg ulceer. I called her and left message. I notified the dept of aging to see if additional services could be made available to assist pt with care. /paul/ SHANTE TINSLEY MD STAFF PHYSICIAN Signed: 07/25/2023 14:42 SHANTE TINSLEY [facility] May 31, 2023 11:52 AM TELEHEALTH NOTE: LOCAL TITLE: PRIMARY CARE VIDEO CONNECT STL STANDARD TITLE: TELEHEALTH NOTE DATE OF NOTE: MAY 31, 2023@11:52 ENTRY DATE: MAY 31, 2023@11:52:08 AUTHOR: SHANTE TINSLEY COSIGNER: URGENCY: STATUS: COMPLETED ESTABLISHED PATIENT VIDEO: REASON FOR VISIT/CHIEF COMPLAINT: HPI: pt has ulcer on buttocks and foot and needs fu with vn vn consult placed yesterday. a fib no bleeding issues. cad: no chest pain. WHAT IS YOUR GOAL FOR TODAY? 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 MEDICATIONS: Active and Recently Outpatient Medications (excluding Supplies): Active Outpatient Medications Status 1) ATORVASTATIN CALCIUM 40MG TAB TAKE ONE-HALF TABLET BY ACTIVE MOUTH EVERY EVENING FOR HIGH CHOLESTEROL 2) LEVOTHYROXINE NA (SYNTHROID) 50MCG TAB TAKE ONE ACTIVE TABLET BY MOUTH EVERY MORNING BEFORE A MEAL FOR THYROID. TAKE 30 MINUTES BEFORE FOOD. TAKE SEPARATELY FROM ALL OTHER MEDICATIONS. 3) METFORMIN HCL 500MG 24HR SA TAB TAKE ONE TABLET BY ACTIVE MOUTH ONCE A DAY FOR BLOOD SUGAR CONTROL. TAKE WITH FOOD. AVOID ALCOHOL. DISCONTINUE BEFORE GETTING XRAY DYE. 4) METOPROLOL TARTRATE 100MG TAB TAKE ONE-HALF TABLET BY ACTIVE MOUTH TWICE A DAY FOR HEART/BLOOD PRESSURE. TAKE WITH OR IMMEDIATELY FOLLOWING FOOD. 5) PANTOPRAZOLE NA 40MG EC TAB TAKE ONE TABLET BY MOUTH HOLD TWICE A DAY TO LOWER STOMACH ACID - TAKE 30 MINUTES BEFORE MEAL(S) Pending Outpatient Medications Status 1) POLYETHYLENE GLYCOL 3350 ORAL PWDR MIX AND DRINK 2 PENDING CAPFULS BY MOUTH ONCE A DAY (MEASURE WITH CAP AND MIX IN 8 OZ OF WATER) Inactive Outpatient Medications Status 1) APIXABAN 5MG TAB TAKE ONE TABLET BY MOUTH TWICE A DAY FOR ANTICOAGULATION Active Non-VA Medications Status 1) Non-VA FEXOFENADINE HCL 180MG TAB 180MG BY MOUTH EACH ACTIVE MORNING NEEDED 2) Non-VA SENNOSIDES 8.6MG TAB 8.6MG BY MOUTH ONCE A DAY ACTIVE NEEDED 9 Total Medications MEDICATION RECONCILIATION: I have reviewed the patient's medication list with the patient and/or his/her care-salvage worker. Handwritten corrections, additions and/or deletions were made to the list. Corrected Outpatient Medication List was provided to the patient/caregiver. REVIEW OF SYSTEMS: General: Normal Ears, Nose, Mouth, Throat: Normal Eye: Normal Cardiovascular: Normal Respiratory: Normal ABD/GI: Normal Musculoskeletal/Extremities: Normal /BANK PRESIDENT: Normal Hematology & Lymph: Normal Endocrine: Normal Skin: Normal VITALS (most recent, as listed in the electronic record): Temperature: 97.2 F [36.2 C] (06/08/2022 10:01) BP: 130/78 (06/08/2022 10:01) Pulse: 113 (06/08/2022 10:01) Resp: 20 (06/08/2022 10:01) PulsOx: 90% (06/08/2022 10:01) Pain: 0 (06/08/2022 10:01) Weight: Measurement DT WEIGHT LB(KG)[BMI] 06/08/2022 10:01 296(134.26)[48*] General exam: pt awake alert and oriented. Speech and affect were normal Head: normocephalic. Eyes: nl eye movement Nose: [...] Info COVID-19 (MODERNA), MRNA, LNP-S,* 2 11/09/2020 [facility]* <C> COVID-19 (MODERNA), MRNA, LNP-S,* 1 10/12/2020 . [facility]* <C> INFLUENZA, HIGH DOSE SEASONAL 12/25/2017 [facility]* <C> INFLUENZA, HIGH-DOSE, QUADRIVALE* 2 12/07/2021 [facility] INFLUENZA, INJECTABLE, QUADRIVAL* 12/11/2018 . [facility]* INFLUENZA, INJECTABLE, QUADRIVAL* 03/31/2017 . [facility]* INFLUENZA, SEASONAL, INJECTABLE,* 02/16/2016 . [facility]* <C> INFLUENZA, SEASONAL, INJECTABLE,* 1 02/27/2013 [facility] INFLUENZA, UNSPECIFIED FORMULATI* 10/14/2014 [facility]* PNEUMOCOCCAL CONJUGATE PCV 13 02/02/2015 [facility]* PNEUMOCOCCAL POLYSACCHARIDE PPV23 02/16/2016 [facility]* TDAP 02/02/2015 [facility]* <C> ZOSTER LIVE 03/05/2015 [facility]* ZOSTER RECOMBINANT 2 01/20/2022 . [facility]* ZOSTER RECOMBINANT 1 09/21/2018 [facility]* CONTRAINDICATED No data available REFUSED ======= No data available <C> See the Detailed Immunizations Health Summary Component[DIM] for Comments * Value is truncated; see the Detailed Immunizations Health Summary Component [DIM] for complete text ST - SKIN TESTS No data available Result: Acceptable Follow-up Action: Re check prior to next visit. Data results reviewed with patient and/or caregiver. ASSESSMENT/PLAN: 1. cva cct 2. a fib anticoag with eliquis re ordered and needs labs. 3. dm cct 4. morbid obesity cct 5. leslie cct cpap 6. htn stable 7. constipation try miralax 8. foot ulcer senior living and leg ulcer consult re placed. SUMMARY STATEMENT: Plan of care has been discussed with including expected therapeutic benefits and potential side effects of prescribed medication and treatments. [facility]o verbalizes understanding and is in agreement with the plan of care. Patient was instructed to keep all scheduled appointments and contact service order clerk for any additional problems. PREVENTION & SCREENING: ALCOHOL: Clinical Reminder not due now or within a month COLORECTAL CANCER: Clinical Reminder not due now or within a month BLOOD PRESSURE: Clinical Reminder not due now or within a month HEMOGLOBIN A1C: Clinical Reminder not due now or within a month Suicide Screen: C-SSRS Screening [place]-Suicide Severity Rating Scale (C-SSRS Screener) 1. Over the past month, have you wished you were or wished you could go to sleep and not wake up? No 2. Over the past month, have you had any actual thoughts of killing yourself? No 3. Over the past month, have you been thinking about how you might do this? Response not required due to responses to other questions. 4. Over the past month, have you had these thoughts and had some intention of acting on them? Response not required due to responses to other questions. 5. Over the past month, have you started to work out or worked out the details of how to kill yourself? Response not required due to responses to other questions. 6. If yes, at any time in the past month did you intend to carry out this plan? Response not required due to responses to other questions. 7. In your lifetime, have you ever done anything, started to do anything, or prepared to do anything to end your life (for example, collected pills, obtained a gun, gave away valuables, went to the roof but didn't jump)? No 8. If YES, was this within the past 3 months? Response not required due to responses to other questions. Cystatin C with eGFR Screen: The patient has a condition that may benefit from obtaining a Cystatin C test for accurate assessment of renal function. Cystatin C w/eGFR ordered for renal assessment. Sexual Orientation: The patient thinks of their sexual orientation as: Straight or Heterosexual Alcohol Use Screen (AUDIT-C): Alcohol Screen: SCREEN FOR ALCOHOL (AUDIT-C) An alcohol screening test (AUDIT-C) was negative (score=0). 1. How often did you have a drink containing alcohol in the past year? Consider a drink to be a 12 ounce can or bottle of regular beer, 8 ounces of malt liquor, a 5 ounce glass of table wine, or a 1.5 ounce shot of liquor (like scotch, gin, or vodka). Never 2. How many drinks containing alcohol did you have on a typical day when you were drinking in the past year? Response not required due to responses to other questions. 3. How often did you have six or more drinks on one occasion in the past year? Response not required due to responses to other questions. Depression Screening: Perform PHQ-2 A PHQ-2 screen was performed. The score was 0 which is a negative screen for depression. Over the past two weeks, how often have you been bothered by the following problems? 1. Little interest or pleasure in doing things Not at all 2. Feeling down, depressed, or hopeless Not at all Homelessness/Food Insecurity Screen: In the past 2 months, have you been living in stable housing that you own, rent, or stay in as part of a household? Yes - Living in stable housing. Are you worried or concerned that in the next 2 months you may NOT have stable housing that you own, rent, or stay in as part of a household? No - Not worried about housing near future The reports the following: Within the past 12 months, you worried whether your food would run out before you got money to buy more. Never true Within the past 12 months, the food you bought just didn't last and you didn't have money to get more. Never true Influenza Immunization: Virtual/Telehealth Visit - Patient educated on the need for receiving influenza immunization either at [facility] or outside facility. PTSD Screening: PC-PTSD-5 A PTSD screening test (PC-PTSD-5) was negative (score=0). IN THE PAST MONTH, have you ever had any experience that was so frightening, horrible or traumatic. For example: A serious accident or fire a physical or sexual assault or abuse An earthquake or flood A war Seeing someone be killed or seriously injured Having a loved one through homicide or suicide 1. Have you ever experienced this kind of event? NO 2. Had nightmares about the event(s) or thought about the event(s) when you did not want to? Response not required due to responses to other questions. 3. Tried hard not to think about the event(s) or went out of your way to avoid situations that reminded you of the event(s)? Response not required due to responses to other questions. 4. Been constantly on guard, watchful, or easily startled? Response not required due to responses to other questions. 5. [place] numb or detached from people, activities, or your surroundings? Response not required due to responses to other questions. 6. [place] guilty or unable to stop blaming yourself or others for the event(s) or any problems the event(s) may have caused? Response not required due to responses to other questions. Diabetes Eye Exam: Patient is due for yearly diabetic eye exam. Diabetic Teleretinal imaging consult ordered today. Patient will be sent to have this done prior to leaving the medical center. Tobacco Use Screening: The patient has never used tobacco. [facility] - PHP MAP: PERSONAL HEALTH PLAN INVENTORY & MAP 's Response: family Palliative Care Provider: Palliative care is not clinically indicated at this time. V15-VA Video Connect/Video to Home: VA Video Connect (VVC)/Video to home template v1.5 Visit conducted by synchronous telehealth. [facility] location/emergency number confirmed. Environment surveyed and all participants [...] and it is appropriate to conduct a CVT/VVC appointment. *Confirmed 's Non-VA location for this appointment: [facility] [address], [place] [address] Address and phone number verified with . Address: Phone: Emergency Contact: Name: Phone: *Tippo was notified of right to decline Telehealth services and eligibility for other options. consented to be seen via CVT/VVC. EMERGENCY PLAN In the event of an emergency, the or family will call emergency services, if capable. The Teleprovider will remain in the virtual medical room until emergency response arrives and handoff to emergency services is complete. If is unable to make emergency call, the Teleprovider is to call the national [employer] service at [phone] and ask to be connected to emergency services for the 's location. [facility] Crisis Line: Dial 988 then press 1, or text [phone] Office of [facility] Helpdesk ([facility]): [phone] or [phone] Verified Provider's location and contact information for this appointment: Other Location home Phone: /es/ SHANTE TINSLEY MD STAFF PHYSICIAN Signed: 05/31/2023 12:03 [facility]
--- OUTSIDE RECORDS SUMMARY | 2024-03-28 09:34 | XMS_ITS | Patient Health Summary ---
Author Organization [facility] Address [address] 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 This disclosure is being madepursuant to the Care Everywhere program and may not contain all information available regarding this patient. Last updated 17.[facility] [employer] Allergies * Lisinopril(Anaphylaxis) -High Criticality Medications * Be aware that medications may not be up to date on this document. Alwaysverify current medications with the patient. * metFORMIN ER 24hr (Glucophage XR) 500 MG tablet(Started 07/29/2023) Take 1 (one) tablet by mouth * pantoprazole EC (Protonix) 40 MG tablet(Started 11/16/2022) Take 1 (one) tablet by mouth once daily * atorvastatin (Lipitor) 20 MG tablet(Started 01/13/2023) Take 1 (one) tablet by mouth * levothyroxine (Synthroid) 50 MCG tablet(Started 01/13/2023) Take 1 (one) tablet by mouth * apixaban (Eliquis) 5 MG tablet(Started 01/13/2023) Take 1 (one) tablet by mouth * acetaminophen (Tylenol) 325 MG tablet(Started 11/02/2023) Take 2 (two) tablets by mouth every 6 hours as needed Maximum allowable Acetaminophen amount = 4 Grams (4000 mg) / 24 hours. * albuterol (Proventil;Ventolin) (5 MG/ML) 0.5% nebulizer solution(Started 11/02/2023) Inhale 0.5 mL by mouth every 4 hours as needed for Shortness of Breath or Wheezing * budesonide-formoterol (Symbicort) 160-4.5 MCG/ACT inhaler(Started 11/02/2023) Inhale 2 (two) puffs by mouth 2 times daily * insulin aspart (NovoLOG) pen(Started 11/02/2023) Inject 0 (zero) Units to 12 (twelve) Units subcutaneously 4 times daily - before meals & nightly * insulin glargine (Lantus/Semglee) 100 units/mL pen(Started 11/02/2023) Inject 5 (five) Units subcutaneously at bedtime * hydrocortisone (Cortef) 10 MG tablet(Started 11/03/2023) Take 1 (one) tablet by mouth every evening * polyethylene glycol 3350 (Miralax) 17 g packet(Started 11/02/2023) Take 17 (seventeen) g by mouth once daily as needed for Constipation * senna (Senokot) 8.6 MG tablet(Started 11/03/2023) Take 1 (one) tablet by mouth once daily * ferrous sulfate 325 (65 FE) MG tablet(Started 11/02/2023) Take 1 (one) tablet by mouth once daily for 90 days * dapagliflozin propanediol (Farxiga) 5 MG tablet(Started 11/23/2023) Take 1 (one) tablet by mouth once daily * carvedilol (Coreg) 12.5 MG tablet(Started 11/22/2023) Take 1 (one) tablet by mouth 2 times daily with morning and evening meal * furosemide (Lasix) 20 MG tablet(Started 11/23/2023) Take 2 (two) tablets by mouth once daily Active Problems Problem Noted Date Diagnosed Date [...] and heating? Not hard at all 11/14/2023 [facility] - Occupational Stress [...] place to sleep or slept in a alf (including now)? No 11/20/2023 Sex and Gender [...] Mass Index 41.5 11/22/2023 8:53 AM CDT Procedures * GLUCOSE - POINT OF CARE(Performed 11/22/2023) * GLUCOSE - POINT OF CARE(Performed 11/22/2023) * ECHO LIMITED W CONTRAST COLOR AND DOPPLER(Performed 11/22/2023) Performed for Shortness of breath, Multiple subsegmental pulmonary emboli without acute cor pulmonale (HCC) * GLUCOSE - POINT OF CARE(Performed 11/22/2023) * CBC W AUTO DIFFERENTIAL(Performed 11/22/2023) * MAGNESIUM BLOOD(Performed 11/22/2023) * BASIC METABOLIC PANEL (CALCIUM TOTAL)(Performed 11/22/2023) * GLUCOSE - POINT OF CARE(Performed 11/21/2023) * GLUCOSE - POINT OF CARE(Performed 11/21/2023) * GLUCOSE - POINT OF CARE(Performed 11/21/2023) * CBC W AUTO DIFFERENTIAL(Performed 11/21/2023) * HEPATIC FUNCTION PANEL(Performed 11/21/2023) * PHOSPHORUS BLOOD(Performed 11/21/2023) * MAGNESIUM BLOOD(Performed 11/21/2023) * BASIC METABOLIC PANEL (CALCIUM TOTAL)(Performed 11/21/2023) * PT-INR SLH(Performed 11/21/2023) * GLUCOSE - POINT OF CARE(Performed 11/20/2023) * GLUCOSE - POINT OF CARE(Performed 11/20/2023) * GLUCOSE - POINT OF CARE(Performed 11/20/2023) * CBC W AUTO DIFFERENTIAL(Performed 11/20/2023) * HEPATIC FUNCTION PANEL(Performed 11/20/2023) * PHOSPHORUS BLOOD(Performed 11/20/2023) * MAGNESIUM BLOOD(Performed 11/20/2023) * BASIC METABOLIC PANEL (CALCIUM TOTAL)(Performed 11/20/2023) * PT-INR SLH(Performed 11/20/2023) * GLUCOSE - POINT OF CARE(Performed 11/19/2023) * GLUCOSE - POINT OF CARE(Performed 11/19/2023) * GLUCOSE - POINT OF CARE(Performed 11/19/2023) * GLUCOSE - POINT OF CARE(Performed 11/19/2023) * CBC W AUTO DIFFERENTIAL(Performed 11/19/2023) * HEPATIC FUNCTION PANEL(Performed 11/19/2023) * PHOSPHORUS BLOOD(Performed 11/19/2023) * MAGNESIUM BLOOD(Performed 11/19/2023) * BASIC METABOLIC PANEL (CALCIUM TOTAL)(Performed 11/19/2023) * PT-INR SLH(Performed 11/19/2023) * GLUCOSE - POINT OF CARE(Performed 11/18/2023) * GLUCOSE - POINT OF CARE(Performed 11/18/2023) * GLUCOSE - POINT OF CARE(Performed 11/18/2023) * CBC W AUTO DIFFERENTIAL(Performed 11/18/2023) * HEPATIC FUNCTION PANEL(Performed 11/18/2023) * PHOSPHORUS BLOOD(Performed 11/18/2023) * MAGNESIUM BLOOD(Performed 11/18/2023) * BASIC METABOLIC PANEL (CALCIUM TOTAL)(Performed 11/18/2023) * PT-INR SLH(Performed 11/18/2023) * GLUCOSE - POINT OF CARE(Performed 11/17/2023) * GLUCOSE - POINT OF CARE(Performed 11/17/2023) * GLUCOSE - POINT OF CARE(Performed 11/17/2023) * CBC W AUTO DIFFERENTIAL(Performed 11/17/2023) * HEPATIC FUNCTION PANEL(Performed 11/17/2023) * PHOSPHORUS BLOOD(Performed 11/17/2023) * MAGNESIUM BLOOD(Performed 11/17/2023) * BASIC METABOLIC PANEL (CALCIUM TOTAL)(Performed 11/17/2023) * PT-INR SLH(Performed 11/17/2023) * GLUCOSE - POINT OF CARE(Performed 11/17/2023) * GLUCOSE - POINT OF CARE(Performed 11/16/2023) * GLUCOSE - POINT OF CARE(Performed 11/16/2023) * GLUCOSE - POINT OF CARE(Performed 11/16/2023) * GLUCOSE - POINT OF CARE(Performed 11/16/2023) * CBC W AUTO DIFFERENTIAL(Performed 11/16/2023) * HEPATIC FUNCTION PANEL(Performed 11/16/2023) * PHOSPHORUS BLOOD(Performed 11/16/2023) * MAGNESIUM BLOOD(Performed 11/16/2023) * BASIC METABOLIC PANEL (CALCIUM TOTAL)(Performed 11/16/2023) * PT-INR SLH(Performed 11/16/2023) * GLUCOSE - POINT OF CARE(Performed 11/16/2023) * GLUCOSE - POINT OF CARE(Performed 11/15/2023) * GLUCOSE - POINT OF CARE(Performed 11/15/2023) * GLUCOSE - POINT OF CARE(Performed 11/15/2023) * GLUCOSE - POINT OF CARE(Performed 11/15/2023) * GLUCOSE - POINT OF CARE(Performed 11/15/2023) * BLOOD GASES CHEN + COOX PANEL(Performed 11/15/2023) * GLUCOSE - POINT OF CARE(Performed 11/15/2023) * GLUCOSE - POINT OF CARE(Performed 11/15/2023) * CBC W AUTO DIFFERENTIAL(Performed 11/15/2023) * HEPATIC FUNCTION PANEL(Performed 11/15/2023) * PHOSPHORUS BLOOD(Performed 11/15/2023) * MAGNESIUM BLOOD(Performed 11/15/2023) * BASIC METABOLIC PANEL (CALCIUM TOTAL)(Performed 11/15/2023) * PT-INR SLH(Performed 11/15/2023) * GLUCOSE - POINT OF CARE(Performed 11/14/2023) * GLUCOSE - POINT OF CARE(Performed 11/14/2023) * GLUCOSE - POINT OF CARE(Performed 11/14/2023) * BLOOD GASES CHEN + COOX PANEL(Performed 11/14/2023) * GLUCOSE - POINT OF CARE(Performed 11/14/2023) * CBC W AUTO DIFFERENTIAL(Performed 11/14/2023) * PT-INR SLH(Performed 11/14/2023) * HEPATIC FUNCTION PANEL(Performed 11/14/2023) * PHOSPHORUS BLOOD(Performed 11/14/2023) * MAGNESIUM BLOOD(Performed 11/14/2023) * BASIC METABOLIC PANEL (CALCIUM TOTAL)(Performed 11/14/2023) * GLUCOSE - POINT OF CARE(Performed 11/14/2023) * GLUCOSE - POINT OF CARE(Performed 11/14/2023) * BLOOD GASES ART + COOX PANEL(Performed 11/13/2023) * BLOOD GASES ART + COOX PANEL(Performed 11/13/2023) * GLUCOSE - POINT OF CARE(Performed 11/13/2023) * VAS BILATERAL VENOUS DUPLEX LE(Performed 11/13/2023) Performed for Other acute pulmonary embolism without acute cor pulmonale (HCC) * CULTURE SPUTUM+GRAM STAIN(Performed 11/13/2023) * GLUCOSE - POINT OF CARE(Performed 11/13/2023) * CARDIAC EKG ORDER(Performed 11/13/2023) * GLUCOSE - POINT OF CARE(Performed 11/13/2023) * PROCALCITONIN LEVEL(Performed 11/13/2023) * GLUCOSE - POINT OF CARE(Performed 11/13/2023) * BLOOD GASES ART + COOX PANEL(Performed 11/13/2023) * VITAMIN B12(Performed 11/13/2023) * PTT SLH(Performed 11/13/2023) * LEGIONELLA ANTIGEN URINE(Performed 11/13/2023) * STREP PNEUMONIAE ANTIGEN URINE(Performed 11/13/2023) * RESPIRATORY PANEL WITH SARS-COV-2 BY PCR (STL)(Performed 11/13/2023) * URINALYSIS REFLEX MICROSCOPIC REFLEX CULTURE(Performed 11/13/2023) * URINE DRUG SCREEN IMMUNOASSAY(Performed 11/13/2023) * XR CHEST 1VW PORTABLE(Performed 11/13/2023) Performed for Altered mental status, unspecified altered mental status type, Shortness of breath, Localized swelling of right upper extremity, Acute on chronic congestive heart failure, unspecified heart failure type (HCC), Anemia, unspecified type, Thrombocytopenia (HCC), Elevated serum creatinine, Pneumonia due to infectious organism, unspecified laterality, unspecified part of lung, Elevated brain natriuretic peptide (BNP) level, CO2 retention, History of COPD, Multiple subsegmental pulmonary emboli without acute cor pulmonale (HCC), Pleural effusion, Acute pulmonary edema (HCC) * XR ABDOMEN KUB PORTABLE(Performed 11/13/2023) Performed for Shortness of breath * ED INTUBATION(Performed 11/13/2023) * MRSA DNA PCR(Performed 11/13/2023) * BLOOD GASES CHEN + COOX PANEL(Performed 11/13/2023) * PTT SLH(Performed 11/13/2023) * PT-INR SLH(Performed 11/13/2023) * CBC W/O DIFFERENTIAL(Performed 11/13/2023) * BASIC METABOLIC PANEL (CALCIUM TOTAL)(Performed 11/13/2023) * BLOOD GASES CHEN + COOX PANEL(Performed 11/13/2023) * PTT SLH(Performed 11/13/2023) * BLOOD GASES CHEN + COOX PANEL(Performed 11/12/2023) * PT-INR SLH(Performed 11/12/2023) * CT ANGIO UPPER EXTREMITY RIGHT(Performed 11/12/2023) Performed for Altered mental status, unspecified altered mental status type, Shortness of breath, Localized swelling of right upper extremity * CT ANGIO CHEST PULM EMBOLISM(Performed 11/12/2023) Performed for Altered mental status, unspecified altered mental status type, Shortness of breath * CT HEAD WO CONTRAST(Performed 11/12/2023) Performed for Altered mental status, unspecified altered mental status type, Shortness of breath * CULTURE BLOOD(Performed 11/12/2023) * BLOOD GASES CHEN + COOX PANEL(Performed 11/12/2023) * TROPONIN-I HIGH SENSITIVE REFLEX 1HOUR(Performed 11/12/2023) * CULTURE BLOOD(Performed 11/12/2023) * EKG 12-LEAD(Performed 11/12/2023) Performed for Altered mental status, unspecified altered mental status type, Shortness of breath * XR HAND RIGHT 3VW OR MORE(Performed 11/12/2023) Performed for Altered mental status, unspecified altered mental status type, Shortness of breath * XR FOREARM RIGHT 2VW OR MORE(Performed 11/12/2023) Performed for Altered mental status, unspecified altered mental status type, Shortness of breath * XR CHEST 1VW PORTABLE(Performed 11/12/2023) Performed for Altered mental status, unspecified altered mental status type, Shortness of breath * SARS-COV-2 (COVID-19) FLU A/B RSV PCR RAPID(Performed 11/12/2023) * BLOOD GASES ART + COOX PANEL(Performed 11/12/2023) * B-TYPE NATRIURETIC PEPTIDE(Performed 11/12/2023) * TROPONIN-I HIGH SENSITIVE BASELINE + 1HR(Performed 11/12/2023) * CBC W AUTO DIFFERENTIAL(Performed 11/12/2023) * COMPREHENSIVE METABOLIC PANEL(Performed 11/12/2023) * MAGNESIUM BLOOD(Performed 11/12/2023) * PHOSPHORUS BLOOD(Performed 11/12/2023) * ACETAMINOPHEN LEVEL(Performed 11/12/2023) * SALICYLATE LEVEL BLOOD(Performed 11/12/2023) * TRICYCLICS SCREEN BLOOD(Performed 11/12/2023) * ALCOHOL ETHYL BLOOD(Performed 11/12/2023) * GLUCOSE - POINT OF CARE(Performed 11/02/2023) * GLUCOSE - POINT OF CARE(Performed 11/02/2023) * VAS BILATERAL VENOUS DUPLEX LE(Performed 11/02/2023) Performed for Pain of left lower extremity * GLUCOSE - POINT OF CARE(Performed 11/02/2023) * GLUCOSE - POINT OF CARE(Performed 11/02/2023) * MRSA DNA PCR(Performed 11/02/2023) * PHOSPHORUS BLOOD(Performed 11/02/2023) * MAGNESIUM BLOOD(Performed 11/02/2023) * COMPREHENSIVE METABOLIC PANEL(Performed 11/02/2023) * CBC W AUTO DIFFERENTIAL(Performed 11/02/2023) * GLUCOSE - POINT OF CARE(Performed 11/02/2023) * GLUCOSE - POINT OF CARE(Performed 11/01/2023) * GLUCOSE - POINT OF CARE(Performed 11/01/2023) * GLUCOSE - POINT OF CARE(Performed 11/01/2023) * GLUCOSE - POINT OF CARE(Performed 11/01/2023) * FERRITIN(Performed 11/01/2023) * IRON + TRANSFERRIN PANEL(Performed 11/01/2023) * GLUCOSE - POINT OF CARE(Performed 11/01/2023) * PHOSPHORUS BLOOD(Performed 11/01/2023) * MAGNESIUM BLOOD(Performed 11/01/2023) * COMPREHENSIVE METABOLIC PANEL(Performed 11/01/2023) * CBC W AUTO DIFFERENTIAL(Performed 11/01/2023) * GLUCOSE - POINT OF CARE(Performed 10/31/2023) * GLUCOSE - POINT OF CARE(Performed 10/31/2023) * GLUCOSE - POINT OF CARE(Performed 10/31/2023) * GLUCOSE - POINT OF CARE(Performed 10/31/2023) * GLUCOSE - POINT OF CARE(Performed 10/31/2023) * PHOSPHORUS BLOOD(Performed 10/31/2023) * MAGNESIUM BLOOD(Performed 10/31/2023) * COMPREHENSIVE METABOLIC PANEL(Performed 10/31/2023) * CBC W AUTO DIFFERENTIAL(Performed 10/31/2023) * GLUCOSE - POINT OF CARE(Performed 10/30/2023) * GLUCOSE - POINT OF CARE(Performed 10/30/2023) * GLUCOSE - POINT OF CARE(Performed 10/30/2023) * PHOSPHORUS BLOOD(Performed 10/30/2023) * MAGNESIUM BLOOD(Performed 10/30/2023) * COMPREHENSIVE METABOLIC PANEL(Performed 10/30/2023) * CBC W AUTO DIFFERENTIAL(Performed 10/30/2023) * GLUCOSE - POINT OF CARE(Performed 10/30/2023) * GLUCOSE - POINT OF CARE(Performed 10/30/2023) * GLUCOSE - POINT OF CARE(Performed 10/30/2023) * GLUCOSE - POINT OF CARE(Performed 10/29/2023) * GLUCOSE - POINT OF CARE(Performed 10/29/2023) * GLUCOSE - POINT OF CARE(Performed 10/29/2023) * GLUCOSE - POINT OF CARE(Performed 10/29/2023) * PHOSPHORUS BLOOD(Performed 10/29/2023) * MAGNESIUM BLOOD(Performed 10/29/2023) * COMPREHENSIVE METABOLIC PANEL(Performed 10/29/2023) * CBC W AUTO DIFFERENTIAL(Performed 10/29/2023) * GLUCOSE - POINT OF CARE(Performed 10/28/2023) * GLUCOSE - POINT OF CARE(Performed 10/28/2023) * PHOSPHORUS BLOOD(Performed 10/28/2023) * MAGNESIUM BLOOD(Performed 10/28/2023) * COMPREHENSIVE METABOLIC PANEL(Performed 10/28/2023) * CBC W AUTO DIFFERENTIAL(Performed 10/28/2023) * GLUCOSE - POINT OF CARE(Performed 10/28/2023) * XR CHEST 1VW PORTABLE(Performed 10/28/2023) Performed for Respiratory distress, COPD, very severe (HCC) * GLUCOSE - POINT OF CARE(Performed 10/28/2023) * GLUCOSE - POINT OF CARE(Performed 10/28/2023) * EKG 12-LEAD(Performed 10/28/2023) Performed for Atrial fibrillation, unspecified type (HCC) * GLUCOSE - POINT OF CARE(Performed 10/27/2023) * GLUCOSE - POINT OF CARE(Performed 10/27/2023) * HGB HCT PANEL(Performed 10/27/2023) * GLUCOSE - POINT OF CARE(Performed 10/27/2023) * GLUCOSE - POINT OF CARE(Performed 10/27/2023) * CBC W AUTO DIFFERENTIAL(Performed 10/27/2023) * MAGNESIUM BLOOD(Performed 10/27/2023) * PHOSPHORUS BLOOD(Performed 10/27/2023) * COMPREHENSIVE METABOLIC PANEL(Performed 10/27/2023) * GLUCOSE - POINT OF CARE(Performed 10/27/2023) * GLUCOSE - POINT OF CARE(Performed 10/26/2023) * GLUCOSE - POINT OF CARE(Performed 10/26/2023) * GLUCOSE - POINT OF CARE(Performed 10/26/2023) * GLUCOSE - POINT OF CARE(Performed 10/26/2023) * CBC W AUTO DIFFERENTIAL(Performed 10/26/2023) * MAGNESIUM BLOOD(Performed 10/26/2023) * PHOSPHORUS BLOOD(Performed 10/26/2023) * COMPREHENSIVE METABOLIC PANEL(Performed 10/26/2023) * GLUCOSE - POINT OF CARE(Performed 10/26/2023) * GLUCOSE - POINT OF CARE(Performed 10/25/2023) * GLUCOSE - POINT OF CARE(Performed 10/25/2023) * GLUCOSE - POINT OF CARE(Performed 10/25/2023) * CBC W AUTO DIFFERENTIAL(Performed 10/25/2023) * GLUCOSE - POINT OF CARE(Performed 10/25/2023) * MAGNESIUM BLOOD(Performed 10/25/2023) * CBC W AUTO DIFFERENTIAL(Performed 10/25/2023) * PHOSPHORUS BLOOD(Performed 10/25/2023) * COMPREHENSIVE METABOLIC PANEL(Performed 10/25/2023) * CBC W AUTO DIFFERENTIAL(Performed 10/24/2023) * GLUCOSE - POINT OF CARE(Performed 10/24/2023) * CBC W AUTO DIFFERENTIAL(Performed 10/24/2023) * GLUCOSE - POINT OF CARE(Performed 10/24/2023) * EXTUBATION(Performed 10/24/2023) * GLUCOSE - POINT OF CARE(Performed 10/24/2023) * MECHANICAL VENTILATION(Performed 10/24/2023) * CBC W AUTO DIFFERENTIAL(Performed 10/24/2023) * GLUCOSE - POINT OF CARE(Performed 10/24/2023) * MAGNESIUM BLOOD(Performed 10/24/2023) * T4 FREE(Performed 10/24/2023) * VANCOMYCIN LEVEL RANDOM(Performed 10/24/2023) * CBC W AUTO DIFFERENTIAL(Performed 10/24/2023) * PHOSPHORUS BLOOD(Performed 10/24/2023) * COMPREHENSIVE METABOLIC PANEL(Performed 10/24/2023) * GLUCOSE - POINT OF CARE(Performed 10/23/2023) * CBC W AUTO DIFFERENTIAL(Performed 10/23/2023) * EKG 12-LEAD(Performed 10/23/2023) Performed for Atrial fibrillation, unspecified type (HCC) * EKG 12-LEAD(Performed 10/23/2023) Performed for Atrial fibrillation, unspecified type (HCC) * EKG 12-LEAD(Performed 10/23/2023) Performed for Atrial fibrillation, unspecified type (HCC) * GLUCOSE - POINT OF CARE(Performed 10/23/2023) * CBC W AUTO DIFFERENTIAL(Performed 10/23/2023) * GLUCOSE - POINT OF CARE(Performed 10/23/2023) * CBC W AUTO DIFFERENTIAL(Performed 10/23/2023) * ECHO COMPLETE W CONTRAST(Performed 10/23/2023) Performed for Atrial fibrillation, unspecified type (HCC) * GLUCOSE - POINT OF CARE(Performed 10/23/2023) * CALCIUM IONIZED WHOLE BLOOD(Performed 10/23/2023) * ACTH(Performed 10/23/2023) * TRIGLYCERIDES BLOOD(Performed 10/23/2023) * CBC W AUTO DIFFERENTIAL(Performed 10/23/2023) * PHOSPHORUS BLOOD(Performed 10/23/2023) * COMPREHENSIVE METABOLIC PANEL(Performed 10/23/2023) * GLUCOSE - POINT OF CARE(Performed 10/22/2023) * CBC W AUTO DIFFERENTIAL(Performed 10/22/2023) * VANCOMYCIN LEVEL RANDOM(Performed 10/22/2023) * GLUCOSE - POINT OF CARE(Performed 10/22/2023) * CBC W AUTO DIFFERENTIAL(Performed 10/22/2023) * EKG 12-LEAD(Performed 10/22/2023) Performed for Atrial fibrillation, unspecified type (HCC) * ACTH 60 MINUTES(Performed 10/22/2023) * GLUCOSE - POINT OF CARE(Performed 10/22/2023) * ACTH CORTISOL BASELINE(Performed 10/22/2023) * PTH INTACT W/O CALCIUM(Performed 10/22/2023) * VITAMIN D 1,25 DIHYDROXY(Performed 10/22/2023) * VITAMIN D 25-HYDROXY(Performed 10/22/2023) * IRON + TRANSFERRIN PANEL(Performed 10/22/2023) * CBC W AUTO DIFFERENTIAL(Performed 10/22/2023) * XR CHEST 1VW PORTABLE(Performed 10/22/2023) Performed for Respiratory distress * GLUCOSE - POINT OF CARE(Performed 10/22/2023) * CORTISOL BLOOD AM(Performed 10/22/2023) * HEMOGLOBIN A1C(Performed 10/22/2023) * CBC W AUTO DIFFERENTIAL(Performed 10/22/2023) * PHOSPHORUS BLOOD(Performed 10/22/2023) * COMPREHENSIVE METABOLIC PANEL(Performed 10/22/2023) * TRANSFUSE RED BLOOD CELL LEUKOREDUCED UNIT(S)(Performed 10/22/2023) * PREPARE RBC LEUKOREDUCED UNIT(Performed 10/21/2023) * GLUCOSE - POINT OF CARE(Performed 10/21/2023) * CBC W AUTO DIFFERENTIAL(Performed 10/21/2023) * CREATININE URINE RANDOM(Performed 10/21/2023) * SODIUM URINE RANDOM(Performed 10/21/2023) * URINALYSIS REFLEX TO MICROSCOPIC NO CULTURE(Performed 10/21/2023) * CULTURE WOUND+GRAM STAIN(Performed 10/21/2023) * STREP PNEUMONIAE ANTIGEN URINE(Performed 10/21/2023) * LEGIONELLA ANTIGEN URINE(Performed 10/21/2023) * CULTURE URINE(Performed 10/21/2023) * EKG 12-LEAD(Performed 10/21/2023) Performed for Atrial fibrillation, unspecified type (HCC) * BLOOD TYPE VERIFICATION(Performed 10/21/2023) * XR FOOT RIGHT 2VW(Performed 10/21/2023) Performed for Blister of toe of right foot with infection, initial encounter * GLUCOSE - POINT OF CARE(Performed 10/21/2023) * VANCOMYCIN LEVEL RANDOM(Performed 10/21/2023) * CULTURE BLOOD(Performed 10/21/2023) * TYPE + SCREEN PANEL(Performed 10/21/2023) * CULTURE BLOOD(Performed 10/21/2023) * TSH REFLEX FREE T4(Performed 10/21/2023) * CBC W AUTO DIFFERENTIAL(Performed 10/21/2023) * LDH BLOOD(Performed 10/21/2023) * D-DIMER(Performed 10/21/2023) * FIBRINOGEN ACTIVITY(Performed 10/21/2023) * PTT SLH(Performed 10/21/2023) * PT-INR SLH(Performed 10/21/2023) * TROPONIN-I HIGH SENSITIVE(Performed 10/21/2023) * B-TYPE NATRIURETIC PEPTIDE(Performed 10/21/2023) * BLOOD GASES ART + COOX PANEL(Performed 10/21/2023) * LACTIC ACID BLOOD(Performed 10/21/2023) * PHOSPHORUS BLOOD(Performed 10/21/2023) * MAGNESIUM BLOOD(Performed 10/21/2023) * COMPREHENSIVE METABOLIC PANEL(Performed 10/21/2023) * XR CHEST 1VW PORTABLE(Performed 10/21/2023) Performed for Respiratory distress * VENTILATOR LIBERATION TRIAL PROTOCOL(Performed 10/21/2023) * MAGNESIUM BLOOD(Performed 06/19/2019) * RENAL FUNCTION PANEL(Performed 06/19/2019) * MAGNESIUM BLOOD(Performed 06/17/2019) * RENAL FUNCTION PANEL(Performed 06/17/2019) * CBC W/O DIFFERENTIAL(Performed 06/17/2019) * RENAL FUNCTION PANEL(Performed 06/15/2019) * US ABDOMEN COMPLETE(Performed 06/14/2019) * RENAL FUNCTION PANEL(Performed 06/14/2019) * MAGNESIUM BLOOD(Performed 06/14/2019) * MAGNESIUM BLOOD(Performed 06/13/2019) * RENAL FUNCTION PANEL(Performed 06/13/2019) * XR ABDOMEN KUB(Performed 06/12/2019) * XR CHEST 1VW PORTABLE(Performed 06/12/2019) * TROPONIN I(Performed 06/12/2019) * RENAL FUNCTION PANEL(Performed 06/12/2019) * MAGNESIUM BLOOD(Performed 06/11/2019) * CBC W/O DIFFERENTIAL(Performed 06/11/2019) * COMPREHENSIVE METABOLIC PANEL(Performed 06/11/2019) * LACTIC ACID BLOOD(Performed 06/10/2019) * COMPREHENSIVE METABOLIC PANEL(Performed 06/10/2019) * BLOOD GASES ARTERIAL(Performed 06/10/2019) * CBC W/O DIFFERENTIAL(Performed 06/10/2019) * RENAL FUNCTION PANEL(Performed 06/10/2019) * XR CHEST 1VW PORTABLE(Performed 06/10/2019) * XR ABDOMEN KUB(Performed 06/09/2019) * TROPONIN I(Performed 06/09/2019) * MAGNESIUM BLOOD(Performed 06/09/2019) * BASIC METABOLIC PANEL (CALCIUM TOTAL)(Performed 06/09/2019) * TROPONIN I(Performed 06/08/2019) * MAGNESIUM BLOOD(Performed 06/08/2019) * RENAL FUNCTION PANEL(Performed 06/08/2019) * BLOOD GASES ARTERIAL(Performed 06/07/2019) * MAGNESIUM BLOOD(Performed 06/07/2019) * CBC W/O DIFFERENTIAL(Performed 06/07/2019) * B-TYPE NATRIURETIC PEPTIDE(Performed 06/07/2019) * RENAL FUNCTION PANEL(Performed 06/07/2019) * XR CHEST 1VW PORTABLE(Performed 06/06/2019) * MAGNESIUM BLOOD(Performed 06/06/2019) * RENAL FUNCTION PANEL(Performed 06/06/2019) * RENAL FUNCTION PANEL(Performed 06/05/2019) * B-TYPE NATRIURETIC PEPTIDE(Performed 06/05/2019) * XR ABDOMEN KUB(Performed 06/04/2019) * BEDSIDE SPIROMETRY(Performed 06/04/2019) * FERRITIN(Performed 06/04/2019) * IRON + TRANSFERRIN PANEL(Performed 06/04/2019) * CBC W/O DIFFERENTIAL(Performed 06/04/2019) * RENAL FUNCTION PANEL(Performed 06/04/2019) * US RETROPERITONEAL COMPLETE(Performed 06/03/2019) * BLOOD GASES ARTERIAL(Performed 06/03/2019) * URINE MICROSCOPIC ONLY REFLEX TO CULTURE(Performed 06/03/2019) * PROTEIN CREATININE RATIO URINE RANDOM PNL(Performed 06/03/2019) * CHLORIDE URINE RANDOM(Performed 06/03/2019) * SODIUM URINE RANDOM(Performed 06/03/2019) * URINALYSIS REFLEX MICROSCOPIC REFLEX CULTURE(Performed 06/03/2019) * CULTURE URINE(Performed 06/03/2019) * MAGNESIUM BLOOD(Performed 06/03/2019) * BASIC METABOLIC PANEL (CALCIUM TOTAL)(Performed 06/03/2019) * B-TYPE NATRIURETIC PEPTIDE(Performed 06/02/2019) * BASIC METABOLIC PANEL (CALCIUM TOTAL)(Performed 06/02/2019) * BLOOD GASES ARTERIAL(Performed 06/01/2019) Performed for SOB (shortness of breath) * XR CHEST 1VW PORTABLE(Performed 06/01/2019) * TSH(Performed 06/01/2019) * COMPREHENSIVE METABOLIC PANEL(Performed 06/01/2019) * CBC W/O DIFFERENTIAL(Performed 06/01/2019) Results * (ABNORMAL) GLUCOSE - POINT OF CARE (11/22/2023 4:06 PM CDT) Only the most recent of100 resultswithin the time period is included. Glucose WB/POC 166(H) 70 - 115 mg/dL 11/22/2023 4:31 PM CDT [facility] Specimen Type Cap Fingerstick 2023 4:31 PM CDT [facility] Blood BLOOD SPECIMEN / Unknown 11/22/2023 4:06 PM CDT 11/22/2023 4:31 PM CDT Oswaldo Vu III, MD LAB - POINT OF C ARE ORDERABLES 81 [address] [address], [facility] [phone] * ECHO LIMITED W CONTRAST COLOR AND DOPPLER (11/22/2023 10:56 AM CDT) Only the most recent of2 resultswithin the time period is included. LV EDV A2C 109.648 ml SSM CV FU JI PACS RVOT VTI 10.726 cm SSM CV FUJ I PACS TAPSE 1.506 cm SSM CV FUJ I PACS LV A2C EF 53.078 % SSM CV FUJ I PACS LV ESV A4C 52.353 ml SSM CV FU JI PACS RVOT pk dejan 74.585 cm/s SSM CV F UJI PACS LVIDs 3.21 cm SSM CV FUJ I PACS LV biplane EF 53 % SSM CV FUJI PACS TR pk dejan 230.479 cm/s SSM CV FUJ I PACS LV A4C EF 32.81 % SSM CV FUJ I PACS RVIDd 3.049 cm SSM CV FUJ I PACS PV pk dejan 83.626 cm/s SSM CV FUJ I PACS RVOT diam Doppler 2.58 cm SSM CV FUJI PACS IVSd 2D 1.461 cm SSM CV FUJ I PACS LVPWd 1.669 cm SSM CV FUJ I PACS LV EDV A4C 77.918 ml SSM CV FU JI PACS LVIDd 4.218 cm SSM CV FUJ I PACS PV VTI 13.208 cm SSM CV FUJ I PACS LV ESV A2C 51.448 ml SSM CV FU JI PACS RA area 30.48 cm SSM CV FUJI PACS Myocardial strain charge 2 unitless SSM CV FUJI PACS Anatomical Region Laterality Modality Ultrasound 11/22/2023 10:3 4 AM CDT Narrative 11/23/2023 9:26 AM CDT Summary * There is severely increased left ventricular wall thickness consistent with concentric remodeling. * The left ventricle is normal in size. * Left ventricular segmental wall motion is normal. * Left ventricular systolic function is normal with an estimated ejection fraction of 53% by biplane method of disks. * The left ventricular diastolic function is normal. * Right ventricle is normal in size with normal systolic function. * The right atrium is moderately dilated. * No significant valvular abnormalities. Patient Info Name: Hans Linares Age: 73 years : 1950 Gender: Male Ht: 72 in Wt: 306 lb BSA: 2.72 m2 HR: 80 bpm BP: 142 / 95 mmHg Exam Date: 11/22/2023 10:34 AM Patient Status: I/P Study Site: [facility] [address] Primary Location: [facility] Info Technical Quality: Adequate Exam Type: ECHO LIMITED W CONTRAST COLOR AND DOPPLER Indications R06.02 - Shortness of breath I26.94 - Multiple subsegmental pulmonary emboli without acute cor pulmonale (HCC) Procedure(s) * A complete 2D, color Doppler, and spectral Doppler transthoracic echocardiogram was performed. Contrast/Agitated Saline Contrast / Saline: Definity Amount: 0.50 ml Administered By: Paul Kwon Reaction to Contrast: no Staff Referring Physician: Zonia Story Ordering Provider: Zonia Story Attending Physician: Zonia Story Manager Nc: Paul Kwon Left Ventricle The left ventricular mass is normal. There is severely increased left ventricular wall thickness consistent with concentric remodeling. The left ventricle is normal in size. Left ventricular segmental wall motion is normal. Left ventricular systolic function is normal with an estimated ejection fraction of 53% by biplane method of disks. The left ventricular diastolic function is normal. Right Ventricle The right ventricle is normal in size. Right ventricular systolic function is normal. Left Atrium The left atrium is normal in size. Right Atrium The right atrium is moderately dilated. Atrial Septum Intact interatrial septum visualized by 2D and color Doppler imaging. Aortic Valve The aortic valve is trileaflet. There is no aortic valve stenosis. There is no aortic valve regurgitation. Pulmonic Valve The pulmonic valve is normal. There is no pulmonic valve stenosis. There is mild pulmonic regurgitation. Mitral Valve The mitral valve is normal. There is no mitral valve stenosis. There is mild mitral valve regurgitation. Tricuspid Valve The tricuspid valve is normal. There is mild tricuspid valve regurgitation. Unable to assess pulmonary pressures due to a lack of tricuspid and pulmonic regurgitation. Inferior Vena Cava The inferior vena cava is normal in size (< 2.1 cm). There is < 50% collapse of the IVC upon inspiration with an estimated right atrial pressure of 3 mmHg. Pericardium/Pleural There is no pericardial effusion. Aorta The aortic root at the sinus of Valsalva is normal in size. The ascending aorta is normal in size. Measurements Pulmonic Valve Name Value Normal PV 2D RVOT Diameter (2D) 2.6 cm 1.7-2.7 RVOT Doppler RVOT Peak Velocity 0.7 m/s RVOT Peak Gradient 2 mmHg RVOT Mean Gradient 1 mmHg PV Doppler PV Peak Velocity 0.8 m/s PV Peak Gradient 3 mmHg PV Mean Gradient 2 mmHg PV Area (Cont Eq VTI) 4.24 cm2 PV Area Index (Cont Eq VTI) 1.56 cm2/m2 PV Area (Cont Eq Dejan) 4.7 cm2 PV Area Index (Cont Eq Dejan) 1.72 cm2/m2 Tricuspid Valve Name Value Normal TV Regurgitation Doppler TR Peak Velocity 2.3 m/s TR Peak Gradient 21 mmHg Estimated PAP/RSVP RA Pressure 3 mmHg <=5 PA Systolic Pressure 24 mmHg <35 RV Systolic Pressure 24 mmHg <36 Ventricles Name Value Normal LV Dimensions 2D/MM IVS Diastolic Thickness (2D) 1.5 cm 0.6-1.0 LVID Diastole (2D) 4.2 cm 4.2-5.8 LVPW Diastolic Thickness (2D) 1.7 cm 0.6-1.0 IVS Systolic Thickness (2D) 2.0 cm LVID Systole (2D) 3.2 cm 2.5-4.0 LVPW Systolic Thickness (2D) 2.0 cm LV Mass (2D Cubed) 310 g 88-224 LV Mass Index (2D Cubed) 114 g/m2 49-115 Relative Wall Thickness (2D) 0.79 <=0.42 LV Fractional Shortening/Ejection Fraction 2D/MM LV Fractional Shortening (2D) 24 % 25-43 LV EF (2D Teicholz) 48 % 52-72 LV Diastolic Volume (4C MOD) 78 ml LV EF (4C MOD) 33 % LV Diastolic Volume (2C MOD) 110 ml LV EF (2C MOD) 53 % LV Diastolic Volume (BP MOD) 92 ml 62-150 LV Diastolic Volume Index (BP MOD) 34 ml/m2 34-74 LV Systolic Volume (BP MOD) 52 ml 21-61 LV Systolic Volume Index (BP MOD) 19 ml/m2 11-31 LV EF (BP MOD) 53 % 52-72 LV Diastolic Length (4C) 8.1 cm LV Systolic Length (4C) 7.2 cm LV Stroke Volume (4C MOD) 26 ml RV Dimensions 2D/MM RVID Diastole (2D) 3.0 cm 2.5-3.5 RVID Systole (2D) 2.6 cm TAPSE 1.5 cm >=1.7 Atria Name Value Normal RA Dimensions RA Area (4C) 30 cm2 <=18 RA Area (4C) Index 11 cm2/m2 Report Signatures Finalized by Yaneth Zayas MD on 11/23/2023 09:26 AM Procedure Note Yaneth Zayas MD - 11/23/2023 Summary * There is severely increased left ventricular wall thicknessconsistent with concentric remodeling. * The left ventricle is normal in size. * Left ventricular segmental wall motion is normal. * Left ventricular systolic function is normal with an estimatedejection fraction of 53% by biplane method of disks. * The left ventricular diastolic function is normal. * Right ventricle is normal in size with normal systolic function. * The right atrium is moderately dilated. * No significant valvular abnormalities. Patient Info Name: Hans Linares Age: 73 years : 1950 Gender: Male Ht: 72 in Wt: 306 lb BSA: 2.72 m2 HR: 80 bpm BP: 142 / 95 mmHg Exam Date: 11/22/2023 10:34 AM Patient Status: I/P Study Site: [facility] Primary Location: [facility] Info Technical Quality: Adequate Exam Type: ECHO LIMITED W CONTRAST COLOR AND DOPPLER Indications R06.02 - Shortness of breath I26.94 - Multiple subsegmental pulmonary emboli without acute cor pulmonale (HCC) Procedure(s) * A complete 2D, color Doppler, and spectral Doppler transthoracic echocardiogram was performed. Contrast/Agitated Saline Contrast / Saline: Definity Amount: 0.50 ml Administered By: Paul Kwon Reaction to Contrast: no Staff Referring Physician: Zonia Story Ordering Provider: Zonia Story Attending Physician: Zonia Story Manager Nc: Paul Kwon Left Ventricle The left ventricular mass is normal. There is severely increased left ventricular wall thickness consistent with concentric remodeling. Theleft ventricle is normal in size. Left ventricular segmental wall motion isnormal. Left ventricular systolic function is normal with an estimated ejection fraction of 53% by biplane method of disks. The left ventriculardiastolic function is normal. Right Ventricle The right ventricle is normal in size. Right ventricular systolicfunction is normal. Left Atrium The left atrium is normal in size. Right Atrium The right atrium is moderately dilated. Atrial Septum Intact interatrial septum visualized by 2D and color Doppler imaging. Aortic Valve The aortic valve is trileaflet. There is no aortic valve stenosis. Thereis no aortic valve regurgitation. Pulmonic Valve The pulmonic valve is normal. There is no pulmonic valve stenosis. Thereis mild pulmonic regurgitation. Mitral Valve The mitral valve is normal. There is no mitral valve stenosis. There ismild mitral valve regurgitation. Tricuspid Valve The tricuspid valve is normal. There is mild tricuspid valveregurgitation. Unable to assess pulmonary pressures due to a lack of tricuspid andpulmonic regurgitation. Inferior Vena Cava The inferior vena cava is normal in size (< 2.1 cm). There is < 50%collapse of the IVC upon inspiration with an estimated right atrial pressure of 3mmHg. Pericardium/Pleural There is no pericardial effusion. Aorta The aortic root at the sinus of Valsalva is normal in size. Theascending aorta is normal in size. Measurements Pulmonic Valve Name Value Normal PV 2D RVOT Diameter (2D) 2.6 cm 1.7-2.7 RVOT Doppler RVOT Peak Velocity 0.7 m/s RVOT Peak Gradient 2 mmHg RVOT Mean Gradient 1 mmHg PV Doppler PV Peak Velocity 0.8 m/s PV Peak Gradient 3 mmHg PV Mean Gradient 2 mmHg PV Area (Cont Eq VTI) 4.24 cm2 PV Area Index (Cont Eq VTI) 1.56 cm2/m2 PV Area (Cont Eq Dejan) 4.7 cm2 PV Area Index (Cont Eq Dejan) 1.72 cm2/m2 Tricuspid Valve Name Value Normal TV Regurgitation Doppler TR Peak Velocity 2.3 m/s TR Peak Gradient 21 mmHg Estimated PAP/RSVP RA Pressure 3 mmHg <=5 PA Systolic Pressure 24 mmHg <35 RV Systolic Pressure 24 mmHg <36 Ventricles Name Value Normal LV Dimensions 2D/MM IVS Diastolic Thickness (2D) 1.5 cm 0.6-1.0 LVID Diastole (2D) 4.2 cm 4.2-5.8 LVPW Diastolic Thickness (2D) 1.7 cm 0.6-1.0 IVS Systolic Thickness (2D) 2.0 cm LVID Systole (2D) 3.2 cm 2.5-4.0 LVPW Systolic Thickness (2D) 2.0 cm LV Mass (2D Cubed) 310 g 88-224 LV Mass Index (2D Cubed) 114 g/m2 49-115 Relative Wall Thickness (2D) 0.79 <=0.42 LV Fractional Shortening/Ejection Fraction 2D/MM LV Fractional Shortening (2D) 24 % 25-43 LV EF (2D Teicholz) 48 % 52-72 LV Diastolic Volume (4C MOD) 78 ml LV EF (4C MOD) 33 % LV Diastolic Volume (2C MOD) 110 ml LV EF (2C MOD) 53 % LV Diastolic Volume (BP MOD) 92 ml 62-150 LV Diastolic Volume Index (BP MOD) 34 ml/m2 34-74 LV Systolic Volume (BP MOD) 52 ml 21-61 LV Systolic Volume Index (BP MOD) 19 ml/m2 11-31 LV EF (BP MOD) 53 % 52-72 LV Diastolic Length (4C) 8.1 cm LV Systolic Length (4C) 7.2 cm LV Stroke Volume (4C MOD) 26 ml RV Dimensions 2D/MM RVID Diastole (2D) 3.0 cm 2.5-3.5 RVID Systole (2D) 2.6 cm TAPSE 1.5 cm >=1.7 Atria Name Value Normal RA Dimensions RA Area (4C) 30 cm2 <=18 RA Area (4C) Index 11 cm2/m2 Report Signatures Finalized by Yaneth Zayas MD on 11/23/2023 09:26 AM Zonia Story MD ECHO CUPID * (ABNORMAL) CBC W AUTO DIFFERENTIAL (11/22/2023 12:33 AM CDT) Only the most recent of34 resultswithin the time period is included. WBC 6.4 4.0 - 10.7 x10E9/L 11/22/2023 2:45 AM T [facility] RBC Count 2.99(L) 4.30 - 5.80 x10E12/L 11/22/2023 2:45 AM [facility] Hemoglobin 8.7(L) 13.3 - 17.5 g/dL 11/22/2023 2:45 AM [facility] Hematocrit 28.4(L) 38.7 - 51.1 % 11/22/2023 2:45 AM [facility] MCV 95.0 80.0 - 98.0 fL 11/22/2023 2:45 AM [facility] MCH 29.1 26.7 - 33.6 pg 11/22/2023 2:45 AM [facility] MCHC 30.6(L) 31.7 - 36.3 g/dL 11/22/2023 2:45 AM [facility] RDW-CV 18.3(H) 11.3 - 14.8 % 11/22/2023 2:45 AM [facility] Platelet Count 165 150 - 420 x10E9/L 11/22/2023 2:45 AM [facility] MPV 10.2 7.8 - 11.4 fL 11/22/2023 2:45 AM [facility] Neutrophil % 66.1 41.0 - 74.0 % 11/22/2023 2:45 AM [facility] Lymphocyte % 19.4 17.0 - 47.0 % 11/22/2023 2:45 AM [facility] Monocyte % 12.3(H) 3.0 - 11.0 % 11/22/2023 2:45 AM [facility] Eosinophil % 0.8 0.0 - 7.0 % 11/22/2023 2:45 AM [facility] Basophil % 0.3 0.0 - 1.6 % 11/22/2023 2:45 AM [facility] Immature Granulocytes % 1.1(H) 0.0 - 1.0 % 11/22/2023 2:45 AM [facility] Neutrophil Absolute 4.26 1.60 - 7.50 x10E9/L 11/22/2023 2:45 AM [facility] Lymphocyte Absolute 1.25 1.00 - 4.40 x10E9/L 11/22/2023 2:45 AM CDT [facility] Monocyte Absolute 0.79 0.15 - 1.00 x10E9/L 11/22/2023 2:45 AM [facility] Eosinophil Absolute 0.05 0.00 - 0.60 x10E9/L 11/22/2023 2:45 AM [facility] Basophil Absolute 0.02 0.00 - 0.13 x10E9/L 11/22/2023 2:45 AM [facility] Blood BLOOD SPECIMEN / Unknown Lab Venipuncture / Unknown 11/22/2023 12:33 AM CDT 11/22/2023 2:31 AM CDT Nitin Alfonso MD LAB - HEMATOLOGY ORD ERABLES [facility] [address] [place] [address], [facility] [phone] * (ABNORMAL) BASIC METABOLIC PANEL (CALCIUM TOTAL) (11/22/2023 12:33 AM CDT) Only the most recent of13 resultswithin the time period is included. BUN 28(H) 7 - 26 mg/dL 11/22/2023 3:00 AM [facility] Creatinine 1.67(H) 0.71 - 1.16 mg/dL 11/22/2023 3:00 AM [facility] Sodium 138 136 - 145 mmol/L 11/22/2023 3:00 AM [facility] Potassium 3.8 3.5 - 4.5 mmol/L 11/22/2023 3:00 AM [facility] Chloride 97(L) 98 - 107 mmol/L 11/22/2023 3:00 AM [facility] CO2 34(H) 22 - 29 mmol/L 11/22/2023 3:00 AM [facility] Glucose 137(H) 70 - 115 mg/dL 11/22/2023 3:00 AM [facility] Calcium 9.2 8.4 - 10.2 mg/dL 11/22/2023 3:00 AM [facility] Anion Gap 7 6 - 16 11/22/2023 3:00 AM [facility] BUN/Creatinine Ratio 17 7 - 23 11/22/2023 3:00 AM T [facility] Osmolality Calculated 294 275 - 295 mOsm/kg 11/22/2023 3:00 AM [facility] eGFR by CKD-EPI 43(L) >=90 mL/min/1.7 3 m2 11/22/2023 3:00 AM T [facility] Blood BLOOD SPECIMEN / Unknown Lab Venipuncture / Unknown 11/22/2023 12:33 AM CDT 11/22/2023 2:31 AM CDT Nitin Alfonso MD LAB - CHEMISTRY TEO AMOR Performing Organization Address City/[facility]/ZIP Co de Phone Number [address] [address], [facility] [phone] * MAGNESIUM BLOOD (11/22/2023 12:33 AM CDT) Only the most recent of31 resultswithin the time period is included. Magnesium 1.9 1.6 - 2.6 mg/dL 11/22/2023 3:00 AM [facility] Blood BLOOD SPECIMEN / Unknown Lab Venipuncture / Unknown 11/22/2023 12:33 AM CDT 11/22/2023 2:31 AM CDT Nitin Alfonso MD LAB - CHEMISTRY TEO AM[facility] Performing Organization Address City/[facility]/ZIP Co de Phone Number [address] [address], [facility] [phone] * (ABNORMAL) PT-INR [facility] (11/21/2023 1:34 AM CDT) Only the most recent of11 resultswithin the time period is included. PT 15.3(H) 12.1 - 14.8 Seconds 11/21/2023 3:14 AM T [facility] INR 1.2 See Comment 11/21/2023 3:14 AM T [facility] Comment:The suggested therap eutic range for standard coumadin (warfarin) therapy is an INR of 2.0-3.0. For high-risk patients (Mechanical Mitral Valve Prosthesis, etc.), the suggested prophylactic therapeutic range is an INR of 2.5-3.5. Blood BLOOD SPECIMEN / Unknown Lab Venipuncture / Unknown 11/21/2023 1:34 AM CDT 11/21/2023 2:45 AM CDT Belén Baitsta MD LAB - COAGULATION OR DERABLES Performing Organization Address [facility]/ZIP Co de Phone Number [address] [address], [facility] [phone] * (ABNORMAL) PHOSPHORUS BLOOD (11/21/2023 1:34 AM CDT) Only the most recent of22 resultswithin the time period is included. Pathologist [facility] Phosphorus 2.6(L) 2.8 - 5.1 mg/dL 11/21/2023 3:15 AM CDT [facility] Blood BLOOD SPECIMEN / Unknown Lab Venipuncture / Unknown 11/21/2023 1:34 AM CDT 11/21/2023 2:45 AM CDT Nitin Alfonso MD LAB - CHEMISTRY TEO AMOR Performing Organization Address [facility] Co de Phone Number [address] [address], [facility] [phone] * (ABNORMAL) HEPATIC FUNCTION PANEL (11/21/2023 1:34 AM CDT) Only the most recent of8 resultswithin the time period is included. Protein Total 5.7(L) 6.0 - 8.3 g/dL 024 3:15 AM CDT [facility] Albumin 2.9(L) 3.4 - 5.0 g/dL 11/21/2023 3:15 AM CDT [facility] Bilirubin Total 0.5 0.2 - 1.2 mg/dL 09/2023 3:15 AM CDT [facility] Bilirubin Conjugated 0.2 0.1 - 0.5 mg/dL 11/21/2023 3:15 AM [facility] Bilirubin Unconjugated 0.3 Unconjugated Bilirubin is a calculated value: Reference ranges have not been established. mg/dL 11/21/2023 3:15 AM [facility] Alkaline Phosphatase 53 40 - 150 U/L 11/21/2023 3:15 AM [facility] ALT 10 5 - 55 U/L 11/21/2023 3:15 AM [facility] AST 12 5 - 34 U/L 11/21/2023 3:15 AM [facility] Albumin/Globulin Ratio 1.0(L) 1.1 - 2.3 11/21/2023 3:15 AM [facility] Blood BLOOD SPECIMEN / Unknown Lab Venipuncture / Unknown 11/21/2023 1:34 AM CDT 11/21/2023 2:45 AM T Nitin Alfonso MD LAB - CHEMISTRY TEO [facility] Organization Address City/State/ZIP Co de Phone Number [address] [address], [facility] [phone] * (ABNORMAL) BLOOD GASES CHEN + COOX PANEL (11/15/2023 8:51 AM [facility]) Only the most recent of6 resultswithin the time period is included. pH Venous 7.39 7.32 - 7.42 pH 11/15/2023 9:01 AM [facility] pO2 Venous 37 35 - 40 mmHg 11/15/2023 9:01 AM [facility] pCO2 Venous 66(H) 40 - 50 mmHg 11/15/2023 9:01 AM [facility] HCO3 Venous 40.0(H) 20 - 30 mmol/L 11/15/2023 9:01 AM [facility] Base Excess Venous 13.1(H) -2.0 - 2.0 mmol/L 11/15/2023 9:01 AM [facility] Oxyhemoglobin Venous 58.5 % 03/2023 9:01 AM [facility] Deoxyhemoglobin (HHB) Venous % 39.0 % 11/15/2023 9:01 AM [facility] Methemoglobin <0.8 0.0 - 2.0 % 11/15/2023 9:01 AM [facility] Carboxyhemoglobin 2.1(H) 0.0 - 2.0 % 2023 9:01 AM [facility] O2 Content Venous 7.3 Interpret within clinical context ml/dL 11/15/2023 9:01 AM [facility] Hemoglobin by COOX 8.8(L) 12.0 - 17.6 g/dL 11/15/2023 9:01 AM [facility] O2 Saturation Venous 60(L) >=70 % 03/2023 9:01 AM [facility] FI O2 Mixed Venous 28.0 % 2023 9:01 AM [facility] Blood BLOOD SPECIMEN / Unknown Venipuncture / Unknown 11/15/2023 8:51 AM T 11/15/2023 8:55 AM [facility] - 11/15/2023 9:01 AM [facility] Carboxyhemoglobin Normal Concentration: Non-smokers: 0-2%; Smokers: 0-9%; Toxic: >20% Nitin Alfonso MD LAB - BLOOD GASES OR DERABLES [facility] [address] [place] [phone], [facility] [phone] * (ABNORMAL) BLOOD GASES ART + COOX PANEL (11/13/2023 10:41 PM [facility]) Only the most recent of5 resultswithin the time period is included. pH Arterial 7.55(H) 7.35 - 7.45 pH 11/13/2023 10:47 PM [facility] pO2 Arterial 56(L) 80 - 100 mmHg 11/13/2023 10:47 PM [facility] pCO2 Arterial 40 35 - 45 mmHg 10:47 PM [facility] HCO3 Arterial 35.0(H) 20.0 - 30.0 mmol/L 11/13/2023 10:47 PM [facility] BE Arterial 11.6(H) -2.0 - 2.0 mmol/L 11/13/2023 10:47 PM [facility] Oxyhemoglobin Arterial 92.1 % 11/13/2023 10:47 PM [facility] Dexoyhemoglobin (HHB) % 5.3 % 11/13/2023 10:47 PM [facility] Methemoglobin <0.8 0.0 - 2.0 % 11/13/2023 10:47 PM [facility] Carboxyhemoglobin 2.6(H) 0.0 - 2.0 % 2023 10:47 PM [facility] O2 Content Arterial 10.7 Interpret within clinical context ml/dL 11/13/2023 10:47 PM [facility] Hemoglobin by COOX 8.2(L) 12.0 - 17.6 g/dL 11/13/2023 10:47 PM [facility] O2 Saturation Arterial 95 90 - 100 % 11/13/2023 10:47 PM [facility] FI O2 Arterial 35.0 % 11/13/2023 10:47 PM [facility] Blood, arterial ARTERIAL BLOOD SPECIMEN / Unknown Arterial Puncture / Unknown 11/13/2023 10:41 PM CDT 11/13/2023 10:44 PM CDT Narrative [facility] - 11/13/2023 10:47 PM CDT Carboxyhemoglobin Normal Concentration: Non-smokers: 0-2%; Smokers: 0-9%; Toxic: >20% Nitin Alfonso MD LAB - BLOOD GASES OR DERABLES [facility] [address] [place] [address], [facility] [phone] * VAS Bilateral Venous Duplex Le (11/13/2023 6:24 PM CDT) Only the most recent of2 resultswithin the time period is included. Anatomical Region Laterality Modality Lower Extremity Intravascular Ul trasound 11/13/2023 4:56 PM CDT Narrative Procedure Note Jj Serna MD - 11/14/2023 Peter Art DO VASCULAR LAB ORDERAB LES * CULTURE SPUTUM+GRAM STAIN (11/13/2023 5:54 PM CDT) Culture Rare normal oropharyngeal terence ANDIE 11/15/2023 10:11 AM CDT [facility]CRO[facility]OLOG[facility] Gram Stain Light Gram-positive cocci 11/15/2023 10:11 AM CDT [facility]CROBIOLOG[facility] Gram Stain >= 25 per low power field Polymorphonuclear cells 11/15/2023 10:11 AM CDT [facility] MICROBIOLOG[facility] Gram Stain <10 per low power field Squamous epithelial cells 11/15/2023 10:11 AM CDT [facility]CRO[facility] Microbiology SPECIMEN FROM ENDOTRACHEAL TUBE / Unknown Collection / Unknown 11/13/2023 5:54 PM CDT 11/13/2023 6:00 PM CDT Peter Art DO LAB - MICROBIOLOGY O RDERABLES [facility] MICROBIOLOGY [address] [place] [address], [facility] [phone] * CARDIAC EKG ORDER (11/13/2023 2:14 PM CDT) Narrative 11/13/2023 2:14 PM CDT Ordered by an unspecified provider. Scanned Document CARDIAC SERVICES ORD ERABLES * PROCALCITONIN LEVEL (11/13/2023 10:07 AM CDT) PROCALCITONIN 0.09 <=0.10 ng/mL 11/13/2023 11:17 AM CDT [facility] Blood BLOOD SPECIMEN / Unknown Venipuncture / Unknown 11/13/2023 10:07 AM CDT 11/13/2023 10:16 AM CDT Narrative [facility] - 11/13/2023 11:17 AM CDT The change in procalcitonin (PCT) concentration over time provides support in decision making on antibiotic discontinuation for suspected or confirmed septic patients. Follow-up samples should be tested once every 1-2 days based upon physician discretion taking into account the patient s evolution and progress. Consider discontinuation of antibiotic therapy if the PCT current is <= 0.5 ng/mL or if the delta PCT is > 80%. Duration of antibiotics should not be determined solely on PCT; established guidelines for the indication should be followed. PCT peak: Highest observed PCT concentration PCT current: Most recent PCT concentration Calculate delta PCT using the following equation: Delta PCT = PCT Peak PCT current X 100% PCT Peak The Change in Procalcitonin Calculator is available at [email or web address] If clinical picture has not improved and PCT remains high, reevaluate and consider treatment failure or other causes. Peter Art DO LAB - CHEMISTRY TEO AM[facility] Organization Address City/State/ZIP Co de Phone Number [address] [address], [facility] [phone] * RESPIRATORY PANEL WITH SARS-COV-2 BY PCR (ST) (11/13/2023 6:04 AM CDT) [facility] Adenovirus PCR Not detected Not detected 11/13/2023 10:27 AM CDT [facility] Coronavirus 229E PCR Not detected Not detected 11/13/2023 10:27 AM CDT [facility] Coronavirus HKU1 PCR Not detected Not detected 11/13/2023 10:27 AM CDT [facility] Coronavirus NL63 PCR Not detected Not detected 11/13/2023 10:27 AM CDT [facility] Coronavirus OC43 PCR Not detected Not detected 11/13/2023 10:27 AM CDT [facility] COVID-19 PCR Not detected Not detected 11/13/2023 10:27 AM CDT [facility] Human Metapneumovirus PCR Not detected Not detected 11/13/2023 10:27 AM CDT [facility] Human Rhinovirus/Enterov irus PCR Not detected Not detected 11/13/2023 10:27 AM CDT [facility] Influenza A PCR Not detected Not detected 11/13/2023 10:27 AM CDT [facility] Influenza B PCR Not detected Not detected 11/13/2023 10:27 AM CDT [facility] Parainfluenza Virus 1 PCR Not detected Not detected 11/13/2023 10:27 AM CDT [facility] Parainfluenza Virus 2 PCR Not detected Not detected 11/13/2023 10:27 AM CDT [facility] Parainfluenza Virus 3 PCR Not detected Not detected 11/13/2023 10:27 AM CDT [facility] Parainfluenza Virus 4 PCR Not detected Not detected 11/13/2023 10:27 AM CDT [facility] Respiratory Syncytial Virus PCR Not detected Not detected 11/13/2023 10:27 AM CDT [facility] Bordetella parapertussis PCR Not detected Not detected 11/13/2023 10:27 AM CDT [facility] Bordetella pertussis PCR Not detected Not detected 11/13/2023 10:27 AM CDT [facility] Chlamydia pneumoniae PCR Not detected Not detected 11/13/2023 10:27 AM CDT [facility] Mycoplasma pneumoniae PCR Not detected Not detected 11/13/2023 10:27 AM CDT [facility] Microbiology SPECIMEN FROM NASOPHARYNGEAL STRUCTURE / Unknown Collection / Unknown 11/13/2023 6:04 AM CDT 11/13/2023 6:07 AM CDT Narrative [facility] - 11/13/2023 10:27 AM CDT This nucleic amplification assay has received FDA authorization via the [employer]. Peter Art DO LAB - MICROBIOLOGY O RDERABLES [facility] [address] [place] [address], [facility] [phone] * (ABNORMAL) PTT [facility] (11/13/2023 6:04 AM CDT) Only the most recent of4 resultswithin the time period is included. APTT >200.0(HH ) 23.0 - 38.4 Seconds 11/13/2023 7:04 AM CDT [facility] Comment:Suggested therapeuti c range for full dose I.V. unfractionated heparin therapy for venous thromboembolism is 71 to 109 seconds. Blood BLOOD SPECIMEN / Unknown Venipuncture / Unknown 11/13/2023 6:04 AM CDT 11/13/2023 6:10 AM CDT Belén Batista MD LAB - COAGULATION OR DERABLES Performing Organization Address City/[facility]/ZIP Co de Phone Number [facility] [place] [address] [place] [address], [facility] [phone] * STREP PNEUMONIAE ANTIGEN URINE (11/13/2023 6:04 AM CDT) Only the most recent of2 resultswithin the time period is included. Streptococcus pneumoniae Antigen Urine Negative Negative 11/13/2023 9:25 AM CDT [facility] Urine URINE / Unknown Collection / Unknown 11/13/2023 6:04 AM CDT 11/13/2023 6:07 AM CDT Narrative [facility] - 11/13/2023 9:25 AM CDT Patients who have received the Streptococcus pneumoniae vaccines may test positive in the 48 hours following vaccination. It is recommended to avoid testing within five days of receiving vaccination. Testing pediatric patients is discouraged because of their high rates of nasal colonization with Streptococcus pneumoniae leading to false positive results. Samples from patients taking antibiotics for more than 24 hours may cause false negatives. Peter Art DO LAB - MICROBIOLOGY O RDERABLES Performing Organization Address City/[facility]/ZIP Co de Phone Number [facility] [address] [place] [address], [facility] [phone] * LEGIONELLA ANTIGEN URINE (11/13/2023 6:04 AM CDT) Only the most recent of2 resultswithin the time period is included. Legionella Antigen Urine Negative Negative 11/13/2023 10:12 AM CDT [facility] Urine URINE / Unknown Collection / Unknown 11/13/2023 6:04 AM CDT 11/13/2023 6:07 AM CDT Narrative [facility] - 11/13/2023 10:12 AM CDT This assay detects Legionella pneumophila serogroup one (1) antigen. A negative test result does not rule out the possibility of Legionella infection due to other serogroups or species of Legionella. A positive result may indicate a recent or remote infection with serogroup 1. Peter Art DO LAB - MICROBIOLOGY O RDERABLES [facility] [address] [place] [address], [facility] [phone] * VITAMIN B12 (11/13/2023 6:04 AM CDT) Vitamin B12 737 213 - 816 pg/mL 11/13/2023 6:59 AM CDT [facility] Blood BLOOD SPECIMEN / Unknown Venipuncture / Unknown 11/13/2023 6:04 AM CDT 11/13/2023 6:10 AM CDT Peter Art DO LAB - CHEMISTRY ORDE RABMANJIT Performing Organization Address City/[facility]/ZIP Co de Phone Number [facility] [address] [place] [address], [facility] [phone] * (ABNORMAL) URINALYSIS REFLEX MICROSCOPIC REFLEX CULTURE (11/13/2023 5:35 AM CDT) Only the most recent of2 resultswithin the time period is included. Color UA Yellow Straw, Yellow 11/13/2023 5:57 AM CDT [facility] Clarity UA Slt Cloudy(A) Clear 11/13/2023 5:57 AM CDT [facility] Specific [place] UA 1.017 1.005 - 1.030 11/13/2023 5:57 AM CDT [facility] pH UA 5.0 5.0 - 8.0 pH 11/13/2023 5:57 AM CDT [facility] Protein UA Negative Negative 11/13/2023 5:57 AM CDT [facility] Glucose UA Negative Negative 11/13/2023 5:57 AM CDT [facility] Ketone UA Negative Negative 11/13/2023 5:57 AM CDT [facility] Bilirubin UA Negative Negative 11/13/2023 5:57 AM CDT [facility] Blood UA Negative Negative 11/13/2023 5:57 AM CDT [facility] Nitrite UA Negative Negative 11/13/2023 5:57 AM CDT [facility] Leukocyte Esterase Negative Negative 11/13/2023 5:57 AM CDT [facility] Urobilinogen UA Negative Negative mg/dL 11/13/2023 5:57 AM T [facility] Comment UA Microscopic not indicated. 11/13/2023 5:57 AM T [facility] Urine URINE SPECIMEN OBTAINED BY CLEAN CATCH PROCEDURE / Unknown Collection / Unknown 11/13/2023 5:35 AM CDT 11/13/2023 5:49 AM CDT [facility] - 11/13/2023 5:57 AM CDT Kyara Raymond MD LAB - URINALYSIS ORD ERABLES [address] [address] [phone] * URINE DRUG SCREEN IMMUNOASSAY (11/13/2023 5:35 AM CDT) [facility] Amphetamines Screen Urine Negative Negative: < 1000 ng/mL 11/13/2023 6:14 AM [facility] Barbiturates Screen Urine Negative Negative: < 200 ng/mL 11/13/2023 6:14 AM [facility] Benzodiazepine Screen Urine Negative Negative: < 200 ng/mL 11/13/2023 6:14 AM [facility] Opiates Urine Negative Negative: < 300 ng/mL 11/13/2023 6:14 AM [facility] Cocaine Metabolites Urine Negative Negative: < 300 ng/mL 11/13/2023 6:14 AM [facility] Phencyclidine Screen Urine Negative Negative: < 25 ng/ml 11/13/2023 6:14 AM [facility] Cannabinoids Screen Urine Negative Negative: <50 ng/mL 11/13/2023 6:14 AM [facility] Methadone Screen Urine Negative Negative: < 300 ng/mL 11/13/2023 6:14 AM CDT [facility] Fentanyl Screen Urine Negative Negative: <1.5 ng/mL 11/13/2023 6:14 AM CDT [facility] Urine URINE / Unknown Collection / Unknown 11/13/2023 5:35 AM CDT 11/13/2023 5:49 AM CDT Narrative [facility] - 11/13/2023 6:14 AM CDT The Urine Toxicology Screening Panel does not screen for Propoxyphene, Meprobamate, Carisoprodol, Trazodone, wpjh-ary-cdriarm medications and/or volatiles (Acetone, Isopropanol, Methanol or Ethylene Glycol). Ethanol, Salicylate, Acetaminophen, Tricyclic Antidepressants and several therapeutic drugs may be individually assayed in serum or plasma specimen. Toxicology testing by the [facility] is an aid to medical diagnosis and treatment of patients. No documented chain of custody was maintained. Results are intended to be used for clinical purposes only. Kyara Raymond MD LAB - URINE CHEMISTR Y ORDERABLES Performing Organization Address City/State/[facility] Co de Phone Number [facility] [address] [place] [address], [facility] [phone] * XR Chest 1Vw Portable (11/13/2023 5:24 AM CDT) Only the most recent of9 resultswithin the time period is included. Anatomical Region Laterality Modality Chest Digital Radiogra phy 11/13/2023 5:33 AM CDT Narrative 11/13/2023 9:36 AM CDT PROCEDURE: XR CHEST 1VW PORTABLE, XR ABDOMEN KUB PORTABLE, DATE/TIME OF EXAM: 11/13/2023 5:24 AM, LOCATION [facility] INDICATION: R41.82: Altered mental status, unspecified altered mental status type R06.02: Shortness of breath R22.31: Localized swelling of right upper extremity I50.9: Acute on chronic congestive heart failure, unspecified heart failure type (HCC) D64.9: Anemia, unspecified type D69.6: Thrombocytopenia (HCC) R79.89: Elevated serum creatinine J18.9: Pneumonia due to infectious organism, unspecified lat ADDITIONAL CLINICAL INFORMATION: Ordering Provider Reason For Exam: post-intubation (accession [id number]), Post intubation (accession [id number]) COMPARISON: X-ray chest 11/12/2023. TECHNIQUE: Frontal radiograph of the chest. FINDINGS/IMPRESSION: X-ray chest *Endotracheal tube tip terminates at the lower thoracic trachea. *Enteric tube terminates below diaphragm. There are patchy bilateral perihilar and basilar airspace/interstitial opacities, consistent with pulmonary edema. Superimposed infectious/inflammatory pathology cannot be excluded. Small to moderate bilateral pleural effusions. No pneumothorax is visible. The cardiomediastinal silhouette is obscured. X-ray KUB Enteric tube tip and sidehole terminate at the stomach. Report dictated by Gianluca Shepherd MD, (Wash Plant Operator). I, Chidi Michelle MD have personally reviewed and interpreted this examination/study. > Interpreting Provider: Chidi Michelle MD on 11/13/2023 9:36 AM Procedure Note Chidi Michelle MD - 11/13/2023 PROCEDURE: XR CHEST 1VW PORTABLE, XR ABDOMEN KUB PORTABLE, DATE/TIME OF EXAM: 11/13/2023 5:24 AM, LOCATION [facility] INDICATION: R41.82: Altered mental status, unspecified altered mental status type R06.02: Shortness of breath R22.31: Localized swelling of right upper extremity I50.9: Acute on chronic congestive heart failure, unspecified heartfailure type ([facility]) D64.9: Anemia, unspecified type D69.6: Thrombocytopenia ([facility]) R79.89: Elevated serum creatinine J18.9: Pneumonia due to infectious organism, unspecified lat ADDITIONAL CLINICAL INFORMATION: Ordering Provider Reason For Exam: post-intubation ([id number]), Post intubation (accession [id number]) COMPARISON: X-ray chest 11/12/2023. TECHNIQUE: Frontal radiograph of the chest. FINDINGS/IMPRESSION: X-ray chest *Endotracheal tube tip terminates at the lower thoracic trachea. *Enteric tube terminates below diaphragm. There are patchy bilateral perihilar and basilar airspace/interstitial opacities, consistent with pulmonary edema. Superimposed infectious/inflammatory pathology cannot be excluded. Small to moderate bilateral pleural effusions. No pneumothorax is visible. The cardiomediastinal silhouette is obscured. X-ray KUB Enteric tube tip and sidehole terminate at the stomach. Report dictated by Gianluca Shepherd MD, (Wash Plant Operator). Chidi Medina MD have personally reviewed andinterpreted this examination/study. > Interpreting Provider: Chidi Michelle MD on 11/13/2023 9:36AM Peter Art DO DIAGNOSTIC IMAGING O RDERABLES * XR Abdomen Kub Portable (11/13/2023 5:24 AM CDT) Anatomical Region Laterality Modality Abdomen Digital Radiogra phy 11/13/2023 5:33 AM CDT Narrative 11/13/2023 9:36 AM CDT PROCEDURE: XR CHEST 1VW PORTABLE, XR ABDOMEN KUB PORTABLE, DATE/TIME OF EXAM: 11/13/2023 5:24 AM, LOCATION [facility] INDICATION: R41.82: Altered mental status, unspecified altered mental status type R06.02: Shortness of breath R22.31: Localized swelling of right upper extremity I50.9: Acute on chronic congestive heart failure, unspecified heart failure type ([facility]) D64.9: Anemia, unspecified type D69.6: Thrombocytopenia ([facility]) R79.89: Elevated serum creatinine J18.9: Pneumonia due to infectious organism, unspecified lat ADDITIONAL CLINICAL INFORMATION: Ordering Provider Reason For Exam: post-intubation (accession [id number]), Post intubation (accession [id number]) COMPARISON: X-ray chest 11/12/2023. TECHNIQUE: Frontal radiograph of the chest. FINDINGS/IMPRESSION: X-ray chest *Endotracheal tube tip terminates at the lower thoracic trachea. *Enteric tube terminates below diaphragm. There are patchy bilateral perihilar and basilar airspace/interstitial opacities, consistent with pulmonary edema. Superimposed infectious/inflammatory pathology cannot be excluded. Small to moderate bilateral pleural effusions. No pneumothorax is visible. The cardiomediastinal silhouette is obscured. X-ray KUB Enteric tube tip and sidehole terminate at the stomach. Report dictated by Gianluca Shepherd MD, (Wash Plant Operator). Chidi Medina MD have personally reviewed and interpreted this examination/study. > Interpreting Provider: Chidi Michelle MD on 11/13/2023 9:36 AM Procedure Note Chidi Michelle MD - 11/13/2023 PROCEDURE: XR CHEST 1VW PORTABLE, XR ABDOMEN KUB PORTABLE, DATE/TIME OF EXAM: 11/13/2023 5:24 AM, LOCATION [facility] INDICATION: R41.82: Altered mental status, unspecified altered mental status type R06.02: Shortness of breath R22.31: Localized swelling of right upper extremity I50.9: Acute on chronic congestive heart failure, unspecified heartfailure type ([facility]) D64.9: Anemia, unspecified type D69.6: Thrombocytopenia ([facility]) R79.89: Elevated serum creatinine J18.9: Pneumonia due to infectious organism, unspecified lat ADDITIONAL CLINICAL INFORMATION: Ordering Provider Reason For Exam: post-intubation ([id number]), Post intubation (accession [id number]) COMPARISON: X-ray chest 11/12/2023. TECHNIQUE: Frontal radiograph of the chest. FINDINGS/IMPRESSION: X-ray chest *Endotracheal tube tip terminates at the lower thoracic trachea. *Enteric tube terminates below diaphragm. There are patchy bilateral perihilar and basilar airspace/interstitial opacities, consistent with pulmonary edema. Superimposed infectious/inflammatory pathology cannot be excluded. Small to moderate bilateral pleural effusions. No pneumothorax is visible. The cardiomediastinal silhouette is obscured. X-ray KUB Enteric tube tip and sidehole terminate at the stomach. Report dictated by Gianluca Shepherd MD, (Wash Plant Operator). I, Chidi Michelle MD have personally reviewed andinterpreted this examination/study. > Interpreting Provider: Chidi Michelle MD on 11/13/2023 9:36AM Truong Tatum MD DIAGNOSTIC IMAGING O RDERABLES * Intubation (11/13/2023 5:13 AM CDT) Truong Mejía MD - 11/13/2023 5:13 AM CDT Jan Brito MD 11/13/2023 5:20 AM Intubation Date/Time: 11/13/2023 5:13 AM Performed by: Jan Brito MD Authorized by: Peter Art DO Consent: Consent obtained: Verbal Consent given by: Patient Risks, benefits, and alternatives were discussed: yes Risks discussed: Aspiration, brain injury, bleeding, hypoxia, and dental trauma Alternatives discussed: No treatment and delayed treatment Hewlett protocol: Procedure explained and questions answered to patient or proxy's satisfaction: yes Relevant documents present and verified: yes Test results available: yes Imaging studies available: yes Required blood products, implants, devices, and special equipment available: yes Immediately prior to procedure, a time out was called: yes Patient identity confirmed: Verbally with patient and arm band Pre-procedure details: Indications: respiratory distress Patient status: Awake Look externally: facial hair Mallampati score: I Obstruction: none Neck mobility: normal Pharmacologic strategy: RSI Induction agents: Ketamine Paralytics: Succinylcholine Procedure details: Preoxygenation: CPAP CPR in progress: no Number of attempts: 1 Successful intubation attempt details: Intubation method: Oral Intubation technique: video assisted Laryngoscope blade: Hypercurved and Mac 4 Bougie used: no Grade view: I Tube size (mm): 8.0 Tube type: Cuffed Tube visualized through cords: yes Placement assessment: ETT at teeth/gumline (cm): 25 at the gumline Tube secured with: ETT vides Breath sounds: Equal Placement verification: chest rise, colorimetric ETCO2 and CXR verification CXR findings: Appropriate position Post-procedure details: Procedure completion: Tolerated Peter Art DO PROCEDURE/MINOR SURG ICAL ORDERABLES * (ABNORMAL) MRSA DNA PCR (11/13/2023 4:33 AM CDT) Only the most recent of2 resultswithin the time period is included. MRSA DNA by PCR Detected( A) Not detected 11/13/2023 10:52 AM CDT [facility] Microbiology SPECIMEN FROM NASAL FOSSAE / Unknown Collection / Unknown 11/13/2023 4:33 AM CDT 11/13/2023 4:40 AM CDT Narrative [facility] - 11/13/2023 10:52 AM CDT Methicillin-resistant Staphylococcus aureus (MRSA) DNA is detected (presumed colonized with MRSA). Kyara Raymond MD LAB - MICROBIOLOGY O RDERABLES [facility] [address] [place] [address], [facility] [phone] * (ABNORMAL) CBC W/O DIFFERENTIAL (11/13/2023 4:09 AM CDT) Only the most recent of7 resultswithin the time period is included. WBC 5.8 4.0 - 10.7 x10E9/L 11/13/2023 4:24 AM [facility] RBC Count 2.80(L) 4.30 - 5.80 x10E12/L 11/13/2023 4:24 AM [facility] Hemoglobin 8.1(L) 13.3 - 17.5 g/dL 11/13/2023 4:24 AM [facility] Hematocrit 28.6(L) 38.7 - 51.1 % 11/13/2023 4:24 AM [facility] MCV 102.1(H) 80.0 - 98.0 fL 11/13/2023 4:24 AM [facility] MCH 28.9 26.7 - 33.6 pg 11/13/2023 4:24 AM [facility] MCHC 28.3(L) 31.7 - 36.3 g/dL 11/13/2023 4:24 AM [facility] RDW-CV 18.8(H) 11.3 - 14.8 % 11/13/2023 4:24 AM [facility] Platelet Count 94(L) 150 - 420 x10E9/L 11/13/2023 4:24 AM [facility] MPV 10.6 7.8 - 11.4 fL 11/13/2023 4:24 AM [facility] NRBC 0.3(H) <=0.0 /100 WBC 11/13/2023 4:24 AM [facility] Blood BLOOD SPECIMEN / Unknown Venipuncture / Unknown 11/13/2023 4:09 AM CDT 11/13/2023 4:12 AM CDT Belén Batista MD LAB - HEMATOLOGY ORD ERABLES [facility] [place] [address], [facility] [phone] * CT Angio Chest Pulm Embolism (11/12/2023 8:20 PM CDT) Anatomical Region Laterality Modality Chest Computed Tomogra phy 11/12/2023 8:32 PM CDT Impressions 11/12/2023 11:12 PM CDT Impression: 1.Small volume of acute pulmonary embolism involving the right middle lobe and right lower lobe segmental and subsegmental branches with CT evidence of right heart strain. 2.Multifocal groundglass consolidations in the bilateral lungs with an upper lobe predominance compatible with multifocal pneumonia. 3.Mild cardiogenic pulmonary edema. 4.Layering small to moderate bilateral pleural effusions. 5.1.3 cm partially calcified nodule in the right thyroid lobe. Recommend correlation with prior imaging. Alternatively a nonemergent thyroid ultrasound may be obtained for further characterization. Findings were communicated to Dr. Jane March by telephone by Dr. Alves at 11/12/2023 8:56 PM with readback comprehension and verification. > Dictated by Torin Alves MD (associate professor of radiology). IJeanette MD have personally reviewed and interpreted this examination/study. > Interpreting Provider: Jeanette Beal MD on 11/12/2023 11:12 PM Narrative 11/12/2023 11:12 PM CDT PROCEDURE: CT ANGIO CHEST PULM EMBOLISM, DATE/TIME OF EXAM: 11/12/2023 8:35 PM, LOCATION [facility] INDICATION: R41.82: Altered mental status, unspecified altered mental status type R06.02: Shortness of breath ADDITIONAL CLINICAL INFORMATION: Ordering Provider Reason For Exam: PE COMPARISON: None. TECHNIQUE: CT of the chest was performed following the uneventful administration of 75 mL of Isovue 370 intravenous contrast according to a pulmonary embolism protocol. Multiplanar reconstructions were created. Findings: Study Quality This examination for the diagnosis of pulmonary embolism is adequate. Pulmonary Arteries: Filling defects within the right middle lobe segmental and subsegmental pulmonary arteries and right lower lobe subsegmental arteries (images 142 and 161, series 5) compatible with acute pulmonary embolism. Thoracic Vasculature: The thoracic aorta and branch vessels are atherosclerotic. Lower Neck and Axillae: Partially calcified 1.3 cm nodule in the right thyroid lobe. Lungs: There are bilateral, right greater than left layering pleural effusions with associated basilar atelectasis. Multifocal groundglass opacities, involving the bilateral upper lobes, right middle lobe, and to a lesser extent in the left lower lobe may represent multifocal pneumonia. There is also some interlobular septal thickening likely reflecting a component of pulmonary edema. Heart and Pericardium: Mild cardiomegaly without pericardial fluid or thickening. The right ventricle is enlarged and the RV to LV the ratio is more than 1 suggestive of right heart strain. The internal septum is flattened. The coronary arteries are atherosclerotic. Mediastinum and Luz Marina: Prominent mediastinal nodes, the largest pretracheal node measuring 1.0 cm in short axis diameter. Bones and Chest Wall: Bone windows demonstrate no suspicious lytic or blastic lesions. The visible osseous structures are intact. Mild degenerative changes are seen in the spine. Upper Abdomen: Small hiatal hernia is present. Otherwise the visible upper abdominal viscera appear normal. Procedure Note Regi Beal MD - 11/12/2023 PROCEDURE: CT ANGIO CHEST PULM EMBOLISM, DATE/TIME OF EXAM: 11/12/2023 8:35 PM, LOCATION [facility] INDICATION: R41.82: Altered mental status, unspecified altered mental status type R06.02: Shortness of breath ADDITIONAL CLINICAL INFORMATION: Ordering Provider Reason For Exam: PE COMPARISON: None. TECHNIQUE: CT of the chest was performed following the uneventful administration of 75 mL of Isovue 370 intravenous contrast according toa pulmonary embolism protocol. Multiplanar reconstructions were created. Findings: Study Quality This examination for the diagnosis of pulmonary embolism is adequate. Pulmonary Arteries: Filling defects within the right middle lobe segmental and subsegmental pulmonary arteries and right lower lobe subsegmental arteries ([id number] 161, series 5) compatible with acute pulmonary embolism. Thoracic Vasculature: The thoracic aorta and branch vessels are atherosclerotic. Lower Neck and Axillae: Partially calcified 1.3 cm nodule in the right thyroid lobe. Lungs: There are bilateral, right greater than left layering pleural effusions with associated basilar atelectasis. Multifocal groundglass opacities, involving the bilateral upper lobes, right middle lobe, and to a lesser extent in the left lower lobe may represent multifocal pneumonia. Thereis also some interlobular septal thickening likely reflecting a componentof pulmonary edema. Heart and Pericardium: Mild cardiomegaly without pericardial fluid or thickening. The right ventricle is enlarged and the RV to LV the ratio is more than 1suggestive of right heart strain. The internal septum is flattened. The coronary arteries are atherosclerotic. Mediastinum and Luz Marina: Prominent mediastinal nodes, the largest pretracheal node measuring 1.0cm in short axis diameter. Bones and Chest Wall: Bone windows demonstrate no suspicious lytic or blastic lesions. The visible osseous structures are intact. Mild degenerative changes areseen in the spine. Upper Abdomen: Small hiatal hernia is present. Otherwise the visible upper abdominal viscera appear normal. Impression: 1.Small volume of acute pulmonary embolism involving the right middlelobe and right lower lobe segmental and subsegmental branches with CTevidence of right heart strain. 2.Multifocal groundglass consolidations in the bilateral lungs with an upper lobe predominance compatible with multifocal pneumonia. 3.Mild cardiogenic pulmonary edema. 4.Layering small to moderate bilateral pleural effusions. 5.1.3 cm partially calcified nodule in the right thyroid lobe. Recommend correlation with prior imaging. Alternatively a nonemergent thyroid ultrasound may be obtained for further characterization. Findings were communicated to Dr. Jane March by telephone by Dr. Alves at 11/12/2023 8:56 PM with readback comprehension and verification. > Dictated by Torin Alves MD (associate professor of radiology). IJeanette MD have personally reviewed and interpreted this examination/study. > Interpreting Provider: Jeanette Beal MD on 11/12/2023 11:12 PM Kyara Raymond MD CT ORDERABLES * CT Angio Upper Extremity Right (11/12/2023 8:20 PM CDT) Anatomical Region Laterality Modality Upper Extremity Computed Tomogra phy 11/12/2023 8:47 PM CDT Impressions 11/12/2023 11:21 PM CDT Impression: 1.Diffuse soft tissue edema in the dorsal soft tissues extending from the elbow throughout the right hand. No evidence of well-defined soft tissue fluid collection. 2.Patency of the right upper extremity arteries and veins, without evidence of deep venous thrombosis. The veins distal to the mid forearm cannot be well evaluated and Doppler ultrasound may be obtained if clinically indicated. 3.No acute fracture in the right upper extremity. Findings were communicated to Dr. Jane March by telephone by Dr. Alves at 11/12/2023 8:56 PM with readback comprehension and verification. > Dictated by Torin Alves MD, (associate professor of radiology). IJeanette MD have personally reviewed and interpreted this examination/study. > Interpreting Provider: Jeanette Beal MD on 11/12/2023 11:21 PM Narrative 11/12/2023 11:21 PM CDT PROCEDURE: CT ANGIO UPPER EXTREMITY RIGHT, DATE/TIME OF EXAM: 11/12/2023 8:35 PM, LOCATION [facility] INDICATION: R41.82: Altered mental status, unspecified altered mental status type R06.02: Shortness of breath R22.31: Localized swelling of right upper extremity ADDITIONAL CLINICAL INFORMATION: Ordering Provider Reason For Exam: dvt COMPARISON: None. TECHNIQUE: CT angiography of right upper extremity was performed following the uneventful administration of 100 mL of Isovue 370 intravenous contrast according to standard protocol. Three dimensional postprocessing was performed by the technologist and sent to the workstation for review. Axial CTA was per performed following intravenous injection of contrast medium. Multiformat reconstruction was performed in sagittal and coronal images from the axial source images. MIP images were: obtained in coronal plane. Findings: Vessels: The arteries of the right upper extremity are widely patent and well-opacified throughout the arm. There is also opacification of the right upper extremity veins on the venous phase, without evidence of deep venous thrombosis although evaluation below the level of the mid forearm is limited secondary to significant contamination from arterial and venous structures Bones: Bone windows demonstrate no suspicious lytic or blastic lesions. The visible osseous structures are intact. Soft tissues: There is diffuse soft tissue edema involving the dorsal soft tissues of the right arm, extending from the elbow throughout the right hand. No evidence of peripherally enhancing soft tissue fluid collection. Other: Additional partially visualized findings in the right hemithorax are fully characterized on concurrently obtained CT chest pulmonary embolism study. Procedure Note Regi Beal MD - 11/12/2023 PROCEDURE: CT ANGIO UPPER EXTREMITY RIGHT, DATE/TIME OF EXAM:11/12/2023 8:35 PM, LOCATION [facility] INDICATION: R41.82: Altered mental status, unspecified altered mental status type R06.02: Shortness of breath R22.31: Localized swelling of right upper extremity ADDITIONAL CLINICAL INFORMATION: Ordering Provider Reason For Exam: dvt COMPARISON: None. TECHNIQUE: CT angiography of right upper extremity was performedfollowing the uneventful administration of 100 mL of Isovue 370 intravenouscontrast according to standard protocol. Three dimensional postprocessing was performed by the technologist and sent to the workstation for review. Axial CTA was per performed following intravenous injection of contrast medium. Multiformat reconstruction was performed in sagittal and coronal images from the axial source images. MIP images were: obtained in coronal plane. Findings: Vessels: The arteries of the right upper extremity are widely patent and well-opacified throughout the arm. There is also opacification of theright upper extremity veins on the venous phase, without evidence of deepvenous thrombosis although evaluation below the level of the mid forearm is limited secondary to significant contamination from arterial and venous structures Bones: Bone windows demonstrate no suspicious lytic or blastic lesions. The visible osseous structures are intact. Soft tissues: There is diffuse soft tissue edema involving the dorsal soft tissues ofthe right arm, extending from the elbow throughout the right hand. Noevidence of peripherally enhancing soft tissue fluid collection. Other: Additional partially visualized findings in the right hemithorax arefully characterized on concurrently obtained CT chest pulmonary embolismstudy. Impression: 1.Diffuse soft tissue edema in the dorsal soft tissues extending fromthe elbow throughout the right hand. No evidence of well-defined soft tissue fluid collection. 2.Patency of the right upper extremity arteries and veins, withoutevidence of deep venous thrombosis. The veins distal to the mid forearm cannot be well evaluated and Doppler ultrasound may be obtained if clinically indicated. 3.No acute fracture in the right upper extremity. Findings were communicated to Dr. Jane March by telephone by Dr. Alves at 11/12/2023 8:56 PM with readback comprehension and verification. > Dictated by Torin Alves MD, (associate professor of radiology). I, Chaz. Gerson Beal MD have personally reviewed and interpreted this examination/study. > Interpreting Provider: Jeanette Beal MD on 11/12/2023 11:21 PM Kyara Raymond MD CT ORDERABLES * CT Head Wo Contrast (11/12/2023 8:20 PM CDT) Anatomical Region Laterality Modality Head Computed Tomogra phy 11/12/2023 7:55 PM CDT Impressions 11/12/2023 8:01 PM CDT IMPRESSION: No acute intracranial abnormality. > Interpreting Provider: Erendira Griffin MD, PhD on 11/12/2023 8:01 PM Narrative 11/12/2023 8:01 PM CDT EXAM: CT HEAD WO CONTRAST, DATE/TIME OF EXAM: 11/12/2023 7:50 PM, LOCATION: [facility] HISTORY: R41.82: Altered mental status, unspecified altered mental status type R06.02: Shortness of breath ADDITIONAL CLINICAL INFORMATION: Ordering Provider Reason For Exam: AMS. EXAMINATION: CT scan of the head without intravenous contrast TECHNIQUE: CT of the head was performed without intravenous contrast according to standard protocol. CT dose reduction technique was used, including Automated Exposure Control. COMPARISON: No prior similar studies are available for comparison. FINDINGS: Exam degraded by mild motion artifact. Within this limitation, the following assessment is made: BRAIN PARENCHYMA: No acute hemorrhage, large vascular territory infarct, or mass effect. Scattered and confluent white matter hypodensities, which are nonspecific but likely represents the sequela of chronic microangiopathic change. Mild generalized parenchymal volume loss, which is commensurate for age. VENTRICLES/EXTRA-AXIAL SPACES: No ventriculomegaly or extra-axial collection. Basal cisterns are patent. EXTRACRANIAL STRUCTURES: No acute or suspicious osseous abnormality. Normal soft tissues. Left frontal sinus nearly completely opacified with a moderate-sized mucosal retention cyst versus polyp. Mild polypoid mucosal thickening of the paranasal sinuses elsewhere. Small volume mucosal opacities of the nasal cavity bilaterally. S-shaped curvature of the nasal septum with a small right-sided spur. Incidentally noted bilateral middle nasal turbinate conchae bullosae versus lamellae. Bmpsr-da-hsclxvop left mastoid effusion. Right mastoid air cells are clear. Orbits are unremarkable. Minimal calcific atherosclerosis of the right carotid siphon and moderate calcific atherosclerosis of the left carotid bifurcation. Patient is edentulous on the contracting manager topogram. Procedure Note Erendira Griffin MD - 11/12/2023 EXAM: CT HEAD WO CONTRAST, DATE/TIME OF EXAM: 11/12/2023 7:50 PM, LOCATION: [facility] HISTORY: R41.82: Altered mental status, unspecified altered mentalstatus type R06.02: Shortness of breath ADDITIONAL CLINICAL INFORMATION: Ordering Provider Reason For Exam: AMS. EXAMINATION: CT scan of the head without intravenous contrast TECHNIQUE: CT of the head was performed without intravenous contrast according to standard protocol. CT dose reduction technique was used, including Automated Exposure Control. COMPARISON: No prior similar studies are available for comparison. FINDINGS: Exam degraded by mild motion artifact. Within this limitation, the following assessment is made: BRAIN PARENCHYMA: No acute hemorrhage, large vascular territory infarct,or mass effect. Scattered and confluent white matter hypodensities, whichare nonspecific but likely represents the sequela of chronicmicroangiopathic change. Mild generalized parenchymal volume loss, which is commensuratefor age. VENTRICLES/EXTRA-AXIAL SPACES: No ventriculomegaly or extra-axial collection. Basal cisterns are patent. EXTRACRANIAL STRUCTURES: No acute or suspicious osseous abnormality.Normal soft tissues. Left frontal sinus nearly completely opacified with a moderate-sized mucosal retention cyst versus polyp. Mild polypoidmucosal thickening of the paranasal sinuses elsewhere. Small volume mucosal opacities of the nasal cavity bilaterally. S-shaped curvature of thenasal septum with a small right-sided spur. Incidentally noted bilateralmiddle nasal turbinate conchae bullosae versus lamellae. Ryqxj-do-yulnrats left mastoid effusion. Right mastoid air cells are clear. Orbits are unremarkable. Minimal calcific atherosclerosis of the right carotidsiphon and moderate calcific atherosclerosis of the left carotid bifurcation. Patient is edentulous on the contracting manager topogram. IMPRESSION: No acute intracranial abnormality. > Interpreting Provider: Erendira Griffin MD, PhD on 11/12/2023 8:01 PM Kyara Raymond MD CT ORDERABLES * CULTURE BLOOD (11/12/2023 7:03 PM CDT) Only the most recent of4 resultswithin the time period is included. Pathologist [facility] Culture No growth day 5 ANDIE 11/17/2023 10:31 PM CDT [facility] MICROBIOLOGY Blood PERIPHERAL BLOOD / Unknown Venipuncture / Unknown 11/12/2023 7:03 PM CDT 11/12/2023 7:13 PM CDT Kyara Raymond MD LAB - MICROBIOLOGY O RDERABLES Performing Organization Address City/[facility]/ZIP Co de Phone Number [facility] MICROBIOLOGY [address] [place] [address], [facility] [phone] * TROPONIN-I HIGH SENSITIVE REFLEX 1HOUR (11/12/2023 6:45 PM CDT) [facility] Troponin I High Sensitive 19 <=35 ng/L 11/12/2023 7:56 PM CDT [facility] Delta Troponin I HS 11/12/2023 7:56 PM CDT [facility] Comment:Delta value intentio nathan not calculated. Baseline to 1 hour specimen collection interval exceeded. Blood BLOOD SPECIMEN / Unknown Venipuncture / Unknown 11/12/2023 6:45 PM CDT 11/12/2023 7:16 PM CDT Kyara Raymond MD LAB - CHEMISTRY TEO AMOR Performing Organization Address City/[facility]/ZIP Co de Phone Number [facility] [address] [place] [address], [place] [phone] * EKG 12-LEAD (11/12/2023 5:31 PM CDT) Only the most recent of7 resultswithin the time period is included. Pathologist [facility] Ventricular Rate 88 BPM [facility] MUSE QRS Duration ms 124 ms [facility] MUSE Q-T Interval ms 346 ms [facility] MUSE QTC Calculation (Bezet) 418 ms SL MUSE Calculated R Centerpoint -45 degrees [facility] MUSE Calculated T Centerpoint 124 degrees [facility] MUSE Interpretation EKG ATRIAL FIBRILLATION LEFT ANTERIOR HEMIBLOCK Poor R wave progression in precordial leads ANTEROLATERAL INFARCT (CITED ON OR BEFORE 28-OCT-2023) ABNORMAL ECG WHEN COMPARED WITH ECG OF 28-OCT-2023 01:47, VENT. RATE HAS INCREASED BY 30 BPM BASELINE ARTIFACT IS NO LONGER PRESENT Confirmed by KENTRELL COOPER MD ([id number]) on 11/12/2023 11:48:19 PM [facility] MUSE 11/12/2023 5:31 PM CDT 11/12/2023 11:48 PM CDT Kyara Raymond MD ECG ORDERABLES [facility] * XR Hand Right 3Vw or More (11/12/2023 5:02 PM CDT) Anatomical Region Laterality Modality Wrist / Hand Digital Radiogra phy 11/12/2023 5:34 PM CDT Impressions 11/13/2023 8:34 AM CDT IMPRESSION: No acute fracture or dislocation identified. Report dictated by Colby Romero MD, (associate professor of radiology). I, Chidi Michelle MD have personally reviewed and interpreted this examination/study. > Interpreting Provider: Chidi Michelle MD on 11/13/2023 8:34 AM Narrative 11/13/2023 8:34 AM CDT PROCEDURE: XR HAND RIGHT 3VW OR MORE, DATE/TIME OF EXAM: 11/12/2023 5:02 PM, LOCATION [facility] INDICATION: R41.82: Altered mental status, unspecified altered mental status type R06.02: Shortness of breath ADDITIONAL CLINICAL INFORMATION: Ordering Provider Reason For Exam: SWELLING Technologist Note: Additional: COMPARISON: None. FINDINGS: The osseous structures are intact and well aligned without acute fracture or dislocation. The joint spaces are preserved. Bone density and texture are normal. Diffuse soft tissue swelling is present. Procedure Note Chidi Michelle MD - 11/13/2023 PROCEDURE: XR HAND RIGHT 3VW OR MORE, DATE/TIME OF EXAM: 45:02 PM, LOCATION [facility] INDICATION: R41.82: Altered mental status, unspecified altered mental status type R06.02: Shortness of breath ADDITIONAL CLINICAL INFORMATION: Ordering Provider Reason For Exam: SWELLING Technologist Note: Additional: COMPARISON: None. FINDINGS: The osseous structures are intact and well aligned without acutefracture or dislocation. The joint spaces are preserved. Bone density and texture are normal. Diffuse soft tissue swelling is present. IMPRESSION: No acute fracture or dislocation identified. Report dictated by Colby Romero MD, MD (associate professor of radiology). Chidi Medina MD have personally reviewed andinterpreted this examination/study. > Interpreting Provider: Chidi Michelle MD on 11/13/2023 8:34AM Kyara Raymond MD DIAGNOSTIC IMAGING O RDERABLES * XR Forearm Right 2Vw or More (11/12/2023 5:02 PM CDT) Anatomical Region Laterality Modality Upper Extremity Digital Radiogra phy 11/12/2023 5:37 PM CDT Impressions 11/13/2023 8:35 AM CDT IMPRESSION: 1.No acute radial or ulnar fracture identified. 2.Extensive soft tissue swelling. Report dictated by Colby Romero MD, MD (associate professor of radiology). Chidi Medina MD have personally reviewed and interpreted this examination/study. > Interpreting Provider: Chidi Michelle MD on 11/13/2023 8:35 AM Narrative 11/13/2023 8:35 AM CDT PROCEDURE: XR FOREARM RIGHT 2VW OR MORE, DATE/TIME OF EXAM: 11/12/2023 5:02 PM, LOCATION [facility] INDICATION: R41.82: Altered mental status, unspecified altered mental status type R06.02: Shortness of breath ADDITIONAL CLINICAL INFORMATION: Ordering Provider Reason For Exam: Technologist Note: Additional: COMPARISON: None. FINDINGS: The radius and ulna are intact without evidence of acute fracture. Bone density and texture are normal. Diffuse soft tissue swelling is present. Procedure Note Chidi Michelle MD - 11/13/2023 PROCEDURE: XR FOREARM RIGHT 2VW OR MORE, DATE/TIME OF EXAM: 11/12/2023 5:02 PM, LOCATION [facility] INDICATION: R41.82: Altered mental status, unspecified altered mental status type R06.02: Shortness of breath ADDITIONAL CLINICAL INFORMATION: Ordering Provider Reason For Exam: Technologist Note: Additional: COMPARISON: None. FINDINGS: The radius and ulna are intact without evidence of acute fracture. Bone density and texture are normal. Diffuse soft tissue swelling is present. IMPRESSION: 1.No acute radial or ulnar fracture identified. 2.Extensive soft tissue swelling. Report dictated by Colby Romero MD, MD (associate professor of radiology). I, Chidi Michelle MD have personally reviewed andinterpreted this examination/study. > Interpreting Provider: Chidi Michelle MD on 11/13/2023 8:35AM Kyara Raymond MD DIAGNOSTIC IMAGING O RDERABLES * SARS-COV-2 (COVID-19) FLU A/B RSV PCR RAPID (11/12/2023 4:55 PM CDT) COVID-19 PCR Not detected Not detected 11/12/19 6:13 PM CDT [facility] Influenza A PCR Not detected Not detected 11/12/2023 6:13 PM CDT [facility] Influenza B PCR Not detected Not detected 11/12/2023 6:13 PM CDT [facility] RSV PCR Not detected Not detected 11/12/2023 6:13 PM CDT [facility] Microbiology SPECIMEN FROM NASOPHARYNGEAL STRUCTURE / Unknown Collection / Unknown 11/12/2023 4:55 PM CDT 11/12/2023 5:29 PM CDT Narrative [facility] - 11/12/2023 6:13 PM CDT This nucleic acid amplification assay has been authorized by the Food and Drug administration (FDA) under an Emergency Use Authorization (EUA). This test is only authorized for the duration of time the declaration that circumstances exist justifying the authorization of emergency use of in vitro diagnostic tests for detection of SARS-CoV-2 virus and/or diagnosis of COVID-19 infection under section 564(b)(1) of the Act, 21 U.S.C 360bbb-3 (b)(1), unless the authorization is terminated or revoked sooner. Fact Sheets for this EUA assay are available upon request. Kyara Raymond MD LAB - MICROBIOLOGY O RDERAMICHAEL Performing Organization Address [facility]/ZIP Co de Phone Number [address] [address], [facility] [phone] * TROPONIN-I HIGH SENSITIVE BASELINE + 1HR (11/12/2023 4:40 PM CDT) Troponin I High Sensitive 20 <=35 ng/L 11/12/2023 5:40 PM CDT [facility] Blood BLOOD SPECIMEN / Unknown Venipuncture / Unknown 11/12/2023 4:40 PM CDT 11/12/2023 5:07 PM CDT Kyara Raymond MD LAB - CHEMISTRY ORDChaz AMOR Performing Organization Address [facility]/ZIP Co de Phone Number [address] [address], [facility] [phone] * (ABNORMAL) TRICYCLICS SCREEN BLOOD (11/12/2023 4:40 PM CDT) Tricyclic Antidepressants <40(L) 80 - 200 ng/mL 11/12/2023 5:45 PM CDT [facility] Blood BLOOD SPECIMEN / Unknown Venipuncture / Unknown 11/12/2023 4:40 PM CDT 11/12/2023 4:50 PM CDT Narrative [facility] - 11/12/2023 5:45 PM CDT Many drugs significantly cross-react with this assay, including: diphenhydramine, cyclobenzoprine, gabapentin, and fluoxetine. Results should be confirmed by quantitative mass spectrometry. This assay should not be used for following trends. Expected Values for Tricyclic Antidepressants: Pharmacokinetic studies have shown there is a marked individual variation in the therapeutic and toxic response to tricyclic antidepressants at similar blood concentrations. Cardiac effects have been demonstrated with TCA blood levels as low as 50-100 ng/mL. With TCA levels >500 ng/mL, the incidence of serious cardiac toxicity increases significantly. With TCA levels >1000 ng/mL, severe, sometimes fatal, cardiac and other side effects often occur. Kyara Raymond MD LAB - CHEMISTRY TEO AMOR Performing Organization Address [facility]/ZIP Co de Phone Number [facility] [address] [place] [address], [facility] [phone] * (ABNORMAL) B-TYPE NATRIURETIC PEPTIDE (11/12/2023 4:40 PM CDT) Only the most recent of5 resultswithin the time period is included. BNP 564(H) <100 pg/mL 11/12/2023 5:38 PM CDT [facility] Comment: A decision threshold of 100 pg/mL has been demonstrated to provide the maximal combination of sensitivity, specificity and predictive value for the diagnosis of congestive heart failure (CHF). Virtually all patients with no evidence of CHF have BNP values less than 100 pg/mL. A BNP value greater than 100 pg/mL is consistent with the diagnosis of CHF in the appropriate clinical setting. In a study of 693 patients (male and female) with diagnosed CHF, the following values were determined based on the NYHA functional classification system: NYHA Functional Class Mean Valule (pg/mL) % >100 pg/mL I 320 58.1 II 432 73.0 III 656 79.0 IV 1635 98.3 Blood BLOOD SPECIMEN / Unknown Venipuncture / Unknown 11/12/2023 4:40 PM CDT 11/12/2023 5:06 PM CDT Kyara Raymond MD LAB - CHEMISTRY TEO AMOR Performing Organization Address [facility]/ZIP Co de Phone Number [facility] [address] [place] [address], [place] [phone] * (ABNORMAL) COMPREHENSIVE METABOLIC PANEL (11/12/2023 4:40 PM CDT) Only the most recent of17 resultswithin the time period is included. BUN 33(H) 7 - 26 mg/dL 11/12/2023 5:37 PM CDT [facility] Creatinine 1.77(H) 0.71 - 1.16 mg/dL 11/12/2023 5:37 PM [facility] Sodium 140 136 - 145 mmol/L 11/12/2023 5:37 PM [facility] Potassium 5.0(H) 3.5 - 4.5 mmol/L 11/12/2023 5:37 PM [facility] Chloride 99 98 - 107 mmol/L 11/12/2023 5:37 PM [facility] CO2 33(H) 22 - 29 mmol/L 11/12/2023 5:37 PM [facility] Glucose 146(H) 70 - 115 mg/dL 11/12/2023 5:37 PM [facility] Calcium 9.3 8.4 - 10.2 mg/dL 11/12/2023 5:37 PM [facility] Protein Total 6.0 6.0 - 8.3 g/dL 11/12/2023 5:37 PM [facility] Albumin 2.9(L) 3.4 - 5.0 g/dL 11/12/2023 5:37 PM [facility] Bilirubin Total 0.6 0.2 - 1.2 mg/dL 11/12/2023 5:37 PM [facility] Alkaline Phosphatase 67 40 - 150 U/L 11/12/2023 5:37 PM [facility] ALT 9 5 - 55 U/L 11/12/2023 5:37 PM [facility] AST 10 5 - 34 U/L 11/12/2023 5:37 PM [facility] Anion Gap 8 6 - 16 11/12/2023 5:37 PM [facility] BUN/Creatinine Ratio 19 7 - 23 11/12/2023 5:37 PM [facility] Osmolality Calculated 300(H) 275 - 295 mOsm/kg 11/12/2023 5:37 PM [facility] Albumin/Globulin Ratio 0.9(L) 1.1 - 2.3 11/12/2023 5:37 PM [facility] eGFR by CKD-EPI 40(L) >=90 mL/min/1.7 3 m2 11/12/2023 5:37 PM [facility] Blood BLOOD SPECIMEN / Unknown Venipuncture / Unknown 11/12/2023 4:40 PM CDT 11/12/2023 5:07 PM CDT Kyara Raymond MD LAB - CHEMISTRY TEO AMOR Performing Organization Address City/[facility]/ZIP Co de Phone Number [facility] [address] [place] [address], [facility] [phone] * ALCOHOL ETHYL BLOOD (11/12/2023 4:40 PM CDT) Ethanol (mg/dL) <10 <10 mg/dL 5:37 PM CDT [facility] Ethanol Calculated (g/dL) <0.010 <=0.010 g/dL 11/12/2023 5:37 PM CDT [facility] Blood BLOOD SPECIMEN / Unknown Venipuncture / Unknown 11/12/2023 4:40 PM CDT 11/12/2023 5:07 PM CDT Narrative [facility] - 11/12/2023 5:37 PM CDT Ethanol Interp <10: None Detected. Depression of [employer]: >100 mg/dl Potentially Critical: >250 mg/dl Potentially Fatal >400 mg/dl Ethanol in the patient's blood will contribute to the osmolar gap. Ethanol's contribution to the osmolar gap can be estimated by dividing the concentration of ethanol in mg/dL by 4.6. This test is for clinical use only and does not equal a KERLINE for legal purposes. Kyara Raymond MD LAB - CHEMISTRY TEO AMOR Performing Organization Address City/[facility]/ZIP Co de Phone Number [facility] [address] [place] [address], [facility] [phone] * (ABNORMAL) SALICYLATE LEVEL BLOOD (11/12/2023 4:40 PM CDT) Salicylate <5(L) 15 - 30 mg/dL 11/12/2023 5:32 PM CDT [facility] Blood BLOOD SPECIMEN / Unknown Venipuncture / Unknown 11/12/2023 4:40 PM CDT 11/12/2023 5:07 PM CDT Narrative [facility] - 11/12/2023 5:32 PM CDT This test is not intended for use with low-dose aspirin therapy. Most patients on low-dose aspirin for cardiovascular prophylaxis will have serum concentrations near or below the lower limit of the analytical range. Kyara Raymond MD LAB - CHEMISTRY TEO AMOR Performing Organization Address [facility]/ZIP Co de Phone Number [address] [address], [facility] [phone] * ACETAMINOPHEN LEVEL (11/12/2023 4:40 PM CDT) [facility] Acetaminophen <3.0 <3.0 ug/mL 11/12/2023 5:37 PM CDT [facility] Blood BLOOD SPECIMEN / Unknown Venipuncture / Unknown 11/12/2023 4:40 PM CDT 11/12/2023 5:07 PM CDT Narrative [facility] - 11/12/2023 5:37 PM CDT Acetaminophen Toxicity Levels (Hours Post Ingestion): >200 ug/mL at 4 hours >100 ug/mL at 8 hours >50 ug/mL at 12 hours For acute ingestion, please refer to Acetaminophen nomogram to determine the risk of toxicity based on time since ingestion and acetaminophen level (see link provided). Note the nomogram disclaimer. WARNING: Assessing the potential toxicity of an acetaminophen level on a standard risk nomogram must take into consideration many factors including any uncertainty of the time since ingestion or the possibility of other medications that may alter the peak level. Contact the [facility] at or reserved for healthcare professionals to assist you in evaluating potentially toxic acetaminophen levels. Kyara Raymond MD LAB - CHEMISTRY TEO AMOR Performing Organization Address [facility]/ZIP Co de Phone Number [address] [address], [place] [phone] * (ABNORMAL) IRON + TRANSFERRIN PANEL (11/01/2023 10:10 AM CDT) Only the most recent of3 resultswithin the time period is included. Iron 17(L) 50 - 175 ug/dL 11/01/2023 11:10 AM CDT [facility] Transferrin 241 174 - 382 mg/dL 11/01/2023 11:10 AM CDT [facility] Transferrin Saturation % 6(L) 16 - 50 % 11/01/2023 11:10 AM CDT [facility] TIBC Calculated 301 240 - 450 ug/dL 11/01/2023 11:10 AM CDT [facility] Blood BLOOD SPECIMEN / Unknown Lab Venipuncture / Unknown 11/01/2023 10:10 AM CDT 11/01/2023 10:21 AM CDT Meri Arroyo PA-C LAB - CHEMISTRY OR DERABLES Performing Organization Address City/[facility]/ZIP Co de Phone Number [address] [address], [facility] [phone] * FERRITIN (11/01/2023 10:10 AM CDT) Only the most recent of2 resultswithin the time period is included. Ferritin 25 22 - 275 ng/mL 11/01/2023 11:15 AM CDT [facility] Blood BLOOD SPECIMEN / Unknown Lab Venipuncture / Unknown 11/01/2023 10:10 AM CDT 11/01/2023 10:21 AM CDT Meri Arroyo PA-C LAB - CHEMISTRY OR DERABLES Performing Organization Address City/[facility]/ZIP Co de Phone Number [address] [address], [place] [phone] * (ABNORMAL) HGB HCT PANEL (10/27/2023 4:29 PM CDT) Hemoglobin 7.3(L) 13.3 - 17.5 g/dL 10/27/2023 4:42 PM CDT [facility] Hematocrit 23.3(L) 38.7 - 51.1 % 10/27/2023 4:42 PM CDT [facility] Blood BLOOD SPECIMEN / Unknown Lab Venipuncture / Unknown 10/27/2023 4:29 PM CDT 10/27/2023 4:38 PM CDT Meri Arroyo PA-C LAB - HEMATOLOGY O RDERABLES Performing Organization Address City/[facility]/ZIP Co de Phone Number [address] [address], [place] [phone] * VANCOMYCIN LEVEL RANDOM (10/24/2023 4:13 AM CDT) Only the most recent of3 resultswithin the time period is included. Vancomycin Random 17.8 Therapeutic Ranges not established for random specimens ug/mL 10/24/2023 4:40 AM CDT [facility] Blood BLOOD SPECIMEN / Unknown Venipuncture / Unknown 10/24/2023 4:13 AM CDT 10/24/2023 4:19 AM CDT Narrative [facility] - 10/24/2023 4:40 AM CDT See institution protocol. Georgette George MD LAB - CHEMISTRY TEO AMOR Performing Organization Address [facility]/ZIP Co de Phone Number [address] [address], [place] [phone] * T4 FREE (10/24/2023 4:13 AM CDT) T4 Free 0.7 0.7 - 1.5 ng/dL 10/24/2023 5:15 AM CDT [facility] Blood BLOOD SPECIMEN / Unknown Venipuncture / Unknown 10/24/2023 4:13 AM CDT 10/24/2023 4:25 AM CDT David Hicks MD LAB - CHEMISTRY TEO AMOR Performing Organization Address City/[facility]/ZIP Co de Phone Number [address] [address], [place] [phone] * (ABNORMAL) CALCIUM IONIZED WHOLE BLOOD (10/23/2023 3:26 AM CDT) Calcium Ionized 1.16 mmol/L 10/23/2023 3:34 AM CDT [facility] pH 7.48(H) 7.35 - 7.45 pH 10/23/2023 3:34 AM CDT [facility] Ionized Calcium pH Adjusted 1.20 1.19 - 1.34 mmol/L 10/23/2023 3:34 AM CDT [facility] Blood BLOOD SPECIMEN / Unknown Venipuncture / Unknown 10/23/2023 3:26 AM CDT 10/23/2023 3:29 AM CDT Georgette George MD LAB - CHEMISTRY TEO AMOR Performing Organization Address [facility]/ZIP Co de Phone Number [address] [address], [facility] [phone] * ACTH (10/23/2023 3:26 AM CDT) ACTH 17.3 7.2 - 63.3 pg/mL 10/24/2023 6:22 PM CDT [facility] ([facility]) Comment: INTERPRETIVE INFORMATION: Adrenocorticotropic Hormone Reference interval based on samples collected between 7 a.m. and 10 a.m. No reference intervals established for p.m. collections. Pediatric reference values are the same as adults (Acta Paediatr Scand 1981;70:341-345). This assay measures intact ACTH 1-39; some types of synthetic ACTH and ACTH fragments are not detected by this assay. Performed By: [employer] [address] [place] [address] Security Tester: Waldo Fuentes MD, PhD CLIA Number: [id number] Blood BLOOD SPECIMEN / Unknown Venipuncture / Unknown 10/23/2023 3:26 AM CDT 10/23/2023 3:31 AM CDT Georgette George MD LAB - CHEMISTRY TEO AM[facility] [employer] [facility]) [address] [place] [address], [facility] * (ABNORMAL) TRIGLYCERIDES BLOOD (10/23/2023 3:26 AM CDT) Triglycerides 172(H) <150 mg/dL 10/23/2023 4:02 AM CDT [facility] Comment: ATP III Classification of Triglycerides: <150 mg/dL: Normal 150 - 199 mg/dL: Borderline High 200 - 400 mg/dL: High >500 mg/dL: Very High Blood BLOOD SPECIMEN / Unknown Venipuncture / Unknown 10/23/2023 3:26 AM CDT 10/23/2023 3:31 AM CDT Georgette George MD LAB - CHEMISTRY TEO AMOR Performing Organization Address City/[facility]/ZIP Co de Phone Number [address] [address], [facility] [phone] * (ABNORMAL) ACTH 60 MINUTES (10/22/2023 1:05 PM CDT) Cortisol 60 Min 6.1(L) >=20.0 mcg/dL 10/22/2023 2:04 PM CDT [facility] Blood BLOOD SPECIMEN / Unknown Venipuncture / Unknown 10/22/2023 1:05 PM CDT 10/22/2023 1:15 PM CDT Georgette George MD LAB - CHEMISTRY TEO AMOR Performing Organization Address City/[facility]/ZIP Co de Phone Number [address] [address], [facility] [phone] * ACTH CORTISOL BASELINE (10/22/2023 11:59 AM CDT) Cortisol Baseline <1.0 No Reference Range Established mcg/dL 10/22/2023 12:57 PM CDT [facility] Blood BLOOD SPECIMEN / Unknown Venipuncture / Unknown 10/22/2023 11:59 AM CDT 10/22/2023 12:12 PM CDT Georgette George MD LAB - CHEMISTRY TEO AMOR Performing Organization Address City/[facility]/ZIP Co de Phone Number [address] [address], [facility] [phone] * (ABNORMAL) PTH INTACT W/O CALCIUM (10/22/2023 9:41 AM CDT) PTH Intact 283.9(H) 8.0 - 77.0 pg/mL 10/22/2023 10:38 AM CDT [facility] Blood BLOOD SPECIMEN / Unknown Venipuncture / Unknown 10/22/2023 9:41 AM CDT 10/22/2023 10:08 AM CDT Georgette George MD LAB - CHEMISTRY TEO AMOR Performing Organization Address [facility] Co de Phone Number [address] [address], [facility] [phone] * VITAMIN D 1,25 DIHYDROXY (10/22/2023 9:41 AM CDT) Vitamin D, 1,25 Dihydroxy 25.9 19.9 - 79.3 pg/mL 10/25/2023 12:53 AM CDT [employer] [facility]) Comment: INTERPRETIVE INFORMATION: Vitamin D, 1,25-Dihydroxy This test is primarily indicated during patient evaluation for hypercalcemia and renal failure. A normal result does not rule out Vitamin D deficiency. The recommended test for diagnosing Vitamin D deficiency is Vitamin D 25-hydroxy. Performed By: [employer] [address] [place] [address] Security Tester: Waldo Fuentes MD, PhD CLIA Number: [id number] Blood BLOOD SPECIMEN / Unknown Venipuncture / Unknown 10/22/2023 9:41 AM CDT 10/22/2023 9:47 AM CDT Georgette George MD LAB - CHEMISTRY TEO AMOR Performing Organization Address City/[facility]/ZIP Co de Phone Number [employer] [facility]) [address] [place], [place] [address] * (ABNORMAL) VITAMIN D 25-HYDROXY (10/22/2023 9:41 AM CDT) Vitamin D, 25 Hydroxy 18.3(L) 30.0 - 80.0 ng/mL 10/22/2023 10:36 AM CDT [facility] Comment: The recommendations for 25-Hydroxy Vitamin D clinical decision points are as follows: Deficient: <20.0 ng/mL Insufficient: 20.0 - 29.9 ng/mL Sufficient: 30.0 - 100.0 ng/mL Potential Toxicity: >100 ng/mL Reference: The Endocrine Society Clinical Practice Guidelines. 2011 If the 25-Hydroxy Vitamin D results are inconsitent with clinical evidence, it is recommended that follow-up testing using a method such as LC/MS/MS be performed to confirm the result. Blood BLOOD SPECIMEN / Unknown Venipuncture / Unknown 10/22/2023 9:41 AM CDT 10/22/2023 9:49 AM CDT Georgette George MD LAB - CHEMISTRY TEO AM[facility] Organization Address City/State/[facility] Co de Phone Number [facility] [address] [place] [address], [facility] [phone] * (ABNORMAL) HEMOGLOBIN A1C (10/22/2023 3:15 AM CDT) Hemoglobin A1c 7.4(H) <=5.6 % 10/22/2023 9:24 AM CDT [facility] Estimated Average Glucose 166 mg/dL 10/22/2023 9:24 AM CDT [facility] Comment: HbA1c Interpretation: Normal : < 5.7% Pre-diabetes: 5.7-6.4% Diabetes: Equal to or greater than 6.5% Test results diagnostic of diabetes should be repeated for confirmation. Treatment target values recommended by ADA and other clinical organizations should be used to evaluate metabolic control in patients. Reference: [place] [employer], Standards of Care in Diabetes -2020 In patients 70 years and older consider HbA1c target range of 7.0-7.5% (Reference: nael Miramontes. JAMDA. 2012) The Sebia assay for the measurement of HbA1c is a National Glycohemoglobin Standardization Program (NGSP) certified method. Blood BLOOD SPECIMEN / Unknown Venipuncture / Unknown 10/22/2023 3:15 AM CDT 10/22/2023 3:21 AM CDT Georgette George MD LAB - CHEMISTRY TEO AMOR Performing Organization Address [facility] Co de Phone Number [address] [address], [facility] [phone] * (ABNORMAL) CORTISOL BLOOD AM (10/22/2023 3:15 AM CDT) Pathologist [facility] Cortisol AM <1.0(L) 3.7 - 19.4 ug/dL 10/22/2023 4:05 AM CDT [facility] Blood BLOOD SPECIMEN / Unknown Venipuncture / Unknown 10/22/2023 3:15 AM CDT 10/22/2023 3:22 AM CDT Narrative [facility] - 10/22/2023 4:05 AM CDT Normal cortisol levels are generally highest in the morning hours and lowest from late evening through the lapper hours (8 PM to 4 AM). The PM measurements of cortisol run approximately one-half to one-third of the AM values. Georgette George MD LAB - CHEMISTRY TEO AMOR Performing Organization Address [facility] Co de Phone Number [address] [address], [facility] [phone] * TRANSFUSE RED BLOOD CELL LEUKOREDUCED UNIT(S) (10/22/2023 2:10 AM CDT) Georgette George MD NURSING - BLOOD PROD TRANSFUSION * PREPARE (CROSSMATCH) RBC UNIT(S), 1 Units (10/21/2023 11:51 PM CDT) Unit Description AS1 LR PRBC IRR [facility] BLOOD BANK LAB Unit ABO O [facility] BLOOD BANK LAB Unit Rh POS [facility] BLOOD BANK LAB Product Number R04 [facility] B LOOD [facility]ANK LAB Unit Donor # [id number] [facility] BLOOD BANK LAB Unit Status transfused [facility] BLO OD BANK LAB Product Code [id number] [facility] BLO OD BANK LAB Blood Type Barcode 5100 [facility] BLOOD BANK LAB Expiration Date [facility] BLOOD BANK LAB Blood Bank BLOOD SPECIMEN / Unknown 10/21/2023 5:26 PM CDT Georgette George MD LAB - BLOOD BANK ORD ERABLES [facility] BLOOD BANK LAB [address] [place] [address], [facility] [phone] * (ABNORMAL) CULTURE WOUND+GRAM STAIN (10/21/2023 9:29 PM CDT) Culture Heavy Achromobacter denitrificans(A) ANDIE 10/24/2023 12:07 PM CDT [facility] Comment:Isolate is multi maty g resistant organism (MDRO). Culture Heavy normal skin terence 10/24/2023 12:07 PM CDT [facility] Gram Stain Light Gram-positive cocci 10/24/2023 12:07 PM CDT [facility] Gram Stain Light Gram-negative bacilli 10/24/2023 12:07 PM CDT [facility] Gram Stain Rare Polymorphonuclear cells 10/24/2023 12:07 PM CDT [facility] Microbiology SPECIMEN FROM WOUND / Unknown Collection / Unknown 10/21/2023 9:29 PM CDT 10/21/2023 9:35 PM CDT Narrative [facility] - 10/24/2023 12:07 PM CDT This isolate is a multidrug resistant organism (MDRO). MDROs are resistant to 3 or more classes of antibiotics. Contact Precautions required. Infectious Diseases consult recommended. Organism Antibiotic Method Susceptibility Achromobacter denitrificans Amikacin ANDIE >=64 ug/mL: Resistant Achromobacter denitrificans Cefepime ANDIE 16 ug/mL: Intermediate Achromobacter denitrificans Ceftazidime ANDIE 4 ug/mL: Susceptible Achromobacter denitrificans Ciprofloxacin ANDIE 2 ug/mL: Intermediate Achromobacter denitrificans Gentamicin ANDIE >=16 ug/mL: Resistant Achromobacter denitrificans Meropenem ANDIE <=0.25 ug/mL: Susceptible Achromobacter denitrificans Piperacillin-tazobactam ANDIE <=4 ug/mL: Susceptible Achromobacter denitrificans Tobramycin ANDIE 8 ug/mL: Intermediate Achromobacter denitrificans Trimethoprim-sulfamethoxaz ole ANDIE <=20 ug/mL: Susceptible Georgette George MD LAB - MICROBIOLOGY O RDERABLES [facility] MICRO[facility] [address] [place] [address], [facility] [phone] * (ABNORMAL) URINALYSIS REFLEX TO MICROSCOPIC NO CULTURE (10/21/2023 9:29 PM CDT) Color UA Yellow Straw, Yellow 10/21/2023 9:48 PM [facility] Clarity UA Slt Cloudy(A) Clear 10/21/2023 9:48 PM CDT [facility] LABORATORY [facility] Specific [place] UA 1.013 1.005 - 1.030 10/21/2023 9:48 PM [facility] pH UA 5.0 5.0 - 8.0 pH 10/21/2023 9:48 PM [facility] Protein UA Negative Negative 10/21/2023 9:48 PM [facility] Glucose UA 2+(A) Negative 10/21/2023 9:48 PM [facility] Ketone UA Trace(A) Negative 10/21/2023 9:48 PM [facility] Bilirubin UA Negative Negative 10/21/2023 9:48 PM [facility] Blood UA 2+(A) Negative 10/21/2023 9:48 PM [facility] Nitrite UA Negative Negative 10/21/2023 9:48 PM [facility] Leukocyte Esterase Trace(A) Negative 10/21/2023 9:48 PM [facility] Urobilinogen UA Negative Negative mg/dL 10/21/2023 9:48 PM [facility] RBC UA 0-2 None Seen, 0-2, 3-5 /HPF 10/21/2023 9:48 PM CDT [facility] WBC UA 0-5 None Seen, 0-5 /HPF 10/21/2023 9:48 PM CDT [facility] Bacteria UA 1+(A) None /HPF 10/21/2023 9:48 PM CDT [facility] Squamous Epithelial Cells UA 0-2 None Seen, 0-2, 3-5 /HPF 10/21/2023 9:48 PM CDT [facility] LABOR[facility] Mucus UA 1+ /LPF 10/21/2023 9:48 PM CDT [facility] Urine URINE SPECIMEN OBTAINED BY CLEAN CATCH PROCEDURE / Unknown Collection / Unknown 10/21/2023 9:29 PM CDT 10/21/2023 9:35 PM CDT Narrative [facility] - 10/21/2023 9:48 PM CDT Georgette George MD LAB - URINALYSIS ORD ERABLES [facility] [address] [place] [address], [place] [phone] * CULTURE URINE (10/21/2023 9:29 PM CDT) Only the most recent of2 resultswithin the time period is included. Pathologist [facility] Culture Urine 10,000-50,000 CFU/mL urogenital terence ANDIE 10/23/2023 2:21 AM CDT [facility] Urine URINE SPECIMEN OBTAINED BY CLEAN CATCH PROCEDURE / Unknown Collection / Unknown 10/21/2023 9:29 PM CDT 10/21/2023 9:35 PM CDT Georgette George MD LAB - MICROBIOLOGY O RDERABLES [facility] [address] [place] [address], [facility] [phone] * SODIUM URINE RANDOM (10/21/2023 9:29 PM CDT) Only the most recent of2 resultswithin the time period is included. Sodium Urine 43 Not Established mmol/L 10/21/2023 10:03 PM CDT [facility] Urine URINE SPECIMEN OBTAINED BY CLEAN CATCH PROCEDURE / Unknown Collection / Unknown 10/21/2023 9:29 PM CDT 10/21/2023 9:35 PM CDT Georgette George MD LAB - URINE CHEMISTR Y ORDERABLES Performing Organization Address [facility]/ZIP Co de Phone Number [address] [address], [place] [phone] * CREATININE URINE RANDOM (10/21/2023 9:29 PM CDT) Creatinine Urine 40.66 Not Established mg/dL 10/21/2023 10:03 PM CDT [facility] Urine URINE SPECIMEN OBTAINED BY CLEAN CATCH PROCEDURE / Unknown Collection / Unknown 10/21/2023 9:29 PM CDT 10/21/2023 9:35 PM CDT Georgette George MD LAB - URINE CHEMISTR Y ORDERABLES Performing Organization Address [facility] Co de Phone Number [address] [address], [place] [phone] * BLOOD TYPE VERIFICATION (10/21/2023 6:45 PM CDT) ABO Rh O POS 10/21/2023 7:2 7 PM CDT [facility] BLOOD BANK LAB Blood Bank BLOOD SPECIMEN / Unknown Venipuncture / Unknown 10/21/2023 6:45 PM CDT 10/21/2023 7:01 PM CDT Georgette George MD LAB - BLOOD BANK ORD ERABLES Performing Organization Address [facility] Co de Phone Number [facility] BLOOD BANK LAB [address] [place] [address], [place] [phone] * XR Foot Right 2Vw (10/21/2023 6:20 PM CDT) Anatomical Region Laterality Modality Ankle / Foot Radiographic Kirstin ging 10/22/2023 8:46 AM CDT Impressions 10/22/2023 8:49 AM CDT IMPRESSION: No acute osseous abnormality. Questioned soft tissue ulceration of the distal first digit. Correlate with physical exam. No radiographic evidence of osteomyelitis at this time. > Interpreting Provider: Geraldo Rodriguez MD on 10/22/2023 8:49 AM Narrative 10/22/2023 8:49 AM CDT PROCEDURE: XR FOOT RIGHT 2VW DATE/TIME OF EXAM: 10/21/2023 6:40 PM CLINICAL INFORMATION: None relevant/not provided if blank. Indication: S90.424A: Blister of toe of right foot with infection, initial encounter L08.9: Blister of toe of right foot with infection, initial encounter Additional History: COMPARISON: None. FINDINGS: Questioned soft tissue ulceration of the distal tip of the first digit. No underlying cortical erosion or osteopenia. No acute fracture or dislocation. Joint spaces are relatively maintained. Mild soft tissue edema of the foot is noted. Procedure Note Gerlado Rodriguez MD - 10/22/2023 PROCEDURE: XR FOOT RIGHT 2VW DATE/TIME OF EXAM: 10/21/2023 6:40 PM CLINICAL INFORMATION: None relevant/not provided if blank. Indication: S90.424A: Blister of toe of right foot with infection,initial encounter L08.9: Blister of toe of right foot with infection, initial encounter Additional History: COMPARISON: None. FINDINGS: Questioned soft tissue ulceration of the distal tip of the first digit.No underlying cortical erosion or osteopenia. No acute fracture or dislocation. Joint spaces are relatively maintained. Mild soft tissueedema of the foot is noted. IMPRESSION: No acute osseous abnormality. Questioned soft tissue ulceration of the distal first digit. Correlatewith physical exam. No radiographic evidence of osteomyelitis at this time. > Interpreting Provider: Geraldo Rodriguez MD on 10/22/2023 8:49 AM Georgette George MD DIAGNOSTIC IMAGING O RDERABLES * TYPE + SCREEN PANEL (10/21/2023 5:17 PM CDT) Antibody Screen NEG 6:06 PM CDT [facility] BLOOD BANK LAB ABO Rh O POS 10/21/2023 6:06 PM CDT [facility] [address] [facility] Blood Bank BLOOD SPECIMEN / Unknown Venipuncture / Unknown 10/21/2023 5:17 PM CDT 10/21/2023 5:26 PM CDT Georgette George MD LAB - BLOOD BANK ORD ERAMICHAEL Performing Organization Address City/[facility]/ZIP Co de Phone Number [facility] [address] [facility] [address] [place] [address], [place] [phone] * (ABNORMAL) TROPONIN-I HIGH SENSITIVE (10/21/2023 4:24 PM CDT) Pathologist [facility] Troponin I High Sensitive 130(H) <=35 ng/L 10/21/2023 5:15 PM CDT [facility] Blood BLOOD SPECIMEN / Unknown Venipuncture / Unknown 10/21/2023 4:24 PM CDT 10/21/2023 4:36 PM CDT Georgette George MD LAB - CHEMISTRY TEO AMOR Performing Organization Address [facility]/ZIP Co de Phone Number [address] [address], [place] [phone] * TSH REFLEX FREE T4 (10/21/2023 4:24 PM CDT) Pathologist [facility] TSH 1.593 0.350 - 4.940 uIU/mL 10/21/2023 5:33 PM CDT [facility] Blood BLOOD SPECIMEN / Unknown Venipuncture / Unknown 10/21/2023 4:24 PM CDT 10/21/2023 4:36 PM CDT Georgette George MD LAB - CHEMISTRY TEO AMOR Performing Organization Address City/[facility]/ZIP Co de Phone Number [address] [address], [place] [phone] * (ABNORMAL) D-DIMER (10/21/2023 4:24 PM CDT) D-Dimer Quantitative 0.74(H) <=0.50 mcg/mL FEU 10/21/2023 5:15 PM CDT [facility] [address] [facility] Comment: In the absence of clinical symptoms, a value less than or equal to 0.5 mcg/mL FEU significantly decreases the probability of PE/DVT (negative predictive value >95%). 1 mcg/mL FEU = 1 Fibrinogen Equivalent Unit (approximates 0.5 mcg/ml of D- Dimer). ISTH DIAGNOSTIC SCORING SYSTEM FOR DIC Score 0 1 2 3 Platelet Count(x10^3/uL) > 100 < 100 < 50 N/A PT Prolongation above upper limit of normal 0-3 3-6 > 6 N/A range (seconds) Fibrinogen (mg/dL) > 100 < 100 N/A N/A D-Dimer (mcg/mL FEU) < 0.50 N/A 0.50-5.0 > 5 Calculate Cumulative Score: > or = 5 :compatible with overt DIC < 5 :suggestive for non-overt DIC N/A = Non applicable Reference: Br. J. Haematol. 145:24-33,2009. Blood BLOOD SPECIMEN / Unknown Venipuncture / Unknown 10/21/2023 4:24 PM CDT 10/21/2023 4:35 PM CDT Georgette George MD LAB - COAGULATION OR DERABLES Performing Organization Address City/[facility]/ZIP Co de Phone Number [address] [address], [facility] [phone] * (ABNORMAL) FIBRINOGEN ACTIVITY (10/21/2023 4:24 PM CDT) Pathologist [facility] Fibrinogen Clauss 163(L) 200 - 400 mg/dL 10/21/2023 5:14 PM CDT [facility] Blood BLOOD SPECIMEN / Unknown Venipuncture / Unknown 10/21/2023 4:24 PM CDT 10/21/2023 4:35 PM CDT Georgette George MD LAB - COAGULATION OR DERABLES [address] [address], [facility] [phone] * LDH BLOOD (10/21/2023 4:24 PM CDT) Pathologist [facility] LDH Total 129 125 - 243 Units/L 10/21/2023 5:11 PM CDT [facility] Blood BLOOD SPECIMEN / Unknown Venipuncture / Unknown 10/21/2023 4:24 PM CDT 10/21/2023 4:36 PM CDT Georgette George MD LAB - CHEMISTRY TEO AMOR Performing Organization Address City/[facility]/ZIP Co de Phone Number [facility] [address] [place] [address], [facility] [phone] * LACTIC ACID BLOOD (10/21/2023 4:24 PM CDT) Only the most recent of2 resultswithin the time period is included. Pathologist [facility] Lactic Acid-Stat 1.4 <=2.0 mmol/L 10/21/2023 5:01 PM CDT [facility] Blood BLOOD SPECIMEN / Unknown Venipuncture / Unknown 10/21/2023 4:24 PM CDT 10/21/2023 4:36 PM CDT Georgette George MD LAB - CHEMISTRY TEO AMOR Performing Organization Address [facility] Co de Phone Number [facility] [address] [place] [address], [place] [phone] * (ABNORMAL) RENAL FUNCTION PANEL (06/19/2019 4:59 AM CDT) Only the most recent of12 resultswithin the time period is included. Pathologist [facility] Glucose 121(H) 70 - 105 mg/dL 06/19/2019 6:14 AM [facility] Sodium 135(L) 136 - 145 mmol/L 06/19/2019 6:14 AM [facility] Potassium 4.2 3.5 - 5.1 mmol/L 06/19/2019 6:14 AM [facility] Chloride 93(L) 98 - 107 mmol/L 06/19/2019 6:14 AM [facility] CO2 30 23 - 31 mmol/L 06/19/2019 6:14 AM [facility] Calcium 10.1 8.4 - 10.4 mg/dL 06/19/2019 6:14 AM [facility] Anion Gap 12 8 - 16 mmol/L 06/19/2019 6:14 AM [facility] BUN 55(H) 8.4 - 25.7 mg/dL 06/19/2019 6:14 AM CDT [facility] Creatinine 1.73(H) 0.72 - 1.25 mg/dL 06/19/2019 6:14 AM CDT [facility] Albumin 3.6 3.2 - 4.6 gm/dL 06/19/2019 6:14 AM CDT [facility] Phosphorus 4.0 2.3 - 4.7 mg/dL 06/19/2019 6:14 AM CDT [facility] eGFR by MDRD 39 mL/min/1.7 3m2 06/19/2019 6:14 AM CDT [facility] eGFR by MDRD 48 mL/min/1.7 3m2 06/19/2019 6:14 AM CDT [facility] Blood BLOOD SPECIMEN / Unknown Venipuncture / Unknown 06/19/2019 4:59 AM CDT 06/19/2019 5:53 AM CDT Graham Pichardo MD LAB - CHEMISTRY TEO AMOR [facility] Organization Address City/State/ZIP Co de Phone Number [facility] [address] [place] [address] * US ABDOMEN COMPLETE (06/14/2019 2:56 PM CDT) Anatomical Region Laterality Modality Abdomen Ultrasound 06/14/2019 3:07 PM CDT Impressions 06/14/2019 3:15 PM CDT 1. Cholelithiasis with mild gallbladder wall thickening. No pericholecystic fluid or sonographic Obrien sign. Gallbladder wall thickening can be seen in the setting of chronic cholecystitis, hypoalbuminemia, or volume overload. 2. Stable mild dilatation of the left renal pelvis. *Reading Radiologist: Naomi Ward on 06/14/2019 at 3:15 PM Narrative 06/14/2019 3:15 PM CDT Ultrasound abdomen complete COMPARISON: 06/03/2019. HISTORY: Abdominal pain. TECHNIQUE: Real-time ultrasound of the abdomen, complete, with DICOM image capture performed by chief cardiopulmonary technologist. FINDINGS: Liver is without mass or biliary dilatation. Liver echotexture is normal. Common bile duct size is within normal limits for patient demographic. No ascites or upper abdominal lymphadenopathy. Gallstones are visualized in the gallbladder. There is mild gallbladder wall thickening to 4 mm. No pericholecystic fluid or sonographic Obrien's sign. Visualized portions of the pancreas are grossly normal. No splenomegaly. Kidneys are of normal size. There is stable mild dilatation of the left renal pelvis. Aorta and IVC calibers are within normal limits. Procedure Note Naomi Ward MD - 06/14/2019 Ultrasound abdomen complete COMPARISON: 06/03/2019. HISTORY: Abdominal pain. TECHNIQUE: Real-time ultrasound of the abdomen, complete, with DICOM image capture performed by chief cardiopulmonary technologist. FINDINGS: Liver is without mass or biliary dilatation. Liver echotexture is normal. Common bile duct size is within normal limits for patient demographic. No ascites or upper abdominal lymphadenopathy. Gallstones are visualized in the gallbladder. There is mild gallbladder wall thickening to 4 mm. No pericholecystic fluid or sonographic Obrien's sign. Visualized portions of the pancreas are grossly normal. No splenomegaly. Kidneys are of normal size. There is stable mild dilatation of the left renal pelvis. Aorta and IVC calibers are within normal limits. IMPRESSION 1. Cholelithiasis with mild gallbladder wall thickening. No pericholecystic fluid or sonographic Obrien sign. Gallbladder wall thickening can be seen in the setting of chronic cholecystitis, hypoalbuminemia, or volume overload. 2. Stable mild dilatation of the left renal pelvis. *Reading Radiologist: Naomi Ward on 06/14/2019 at 3:15 PM Hieu Morris MD US ORDERABLES * XR ABDOMEN KUB (06/12/2019 3:40 PM CDT) Only the most recent of3 resultswithin the time period is included. Anatomical Region Laterality Modality Abdomen Radiographic Kirstin ging 06/12/2019 3:53 PM CDT Impressions 06/12/2019 3:55 PM CDT Findings suggestive of mild colitis; no bowel obstruction. *Reading Radiologist: Arley Flores on 06/12/2019 at 3:55 PM Narrative 06/12/2019 3:55 PM CDT Procedure Title: XR ABDOMEN KUB*[id number] HISTORY: Abdominal distention. COMPARISON: 06/09/2019. Based on available information this is an LTACH patient. FINDINGS: Distended presumed sigmoid loop has decompressed in the interval. Nonobstructive bowel gas pattern. There does appear to be some haustral thickening along the ascending and transverse colon, suggesting a nonspecific colitis. Procedure Note Arley Flores MD - 06/12/2019 Procedure Title: XR ABDOMEN KUB*[id number] HISTORY: Abdominal distention. COMPARISON: 06/09/2019. Based on available information this is an LTACH patient. FINDINGS: Distended presumed sigmoid loop has decompressed in the interval. Nonobstructive bowel gas pattern. There does appear to be some haustral thickening along the ascending and transverse colon, suggesting a nonspecific colitis. IMPRESSION Findings suggestive of mild colitis; no bowel obstruction. *Reading Radiologist: Arley Flores on 06/12/2019 at 3:55 PM Hieu Morris MD DIAGNOSTIC IMAGING O RDERABLES * TROPONIN I (06/12/2019 8:14 AM CDT) Only the most recent of3 resultswithin the time period is included. Pathologist [facility] Troponin I 0.013 <0.038 ng/mL 06/12/2019 9:08 AM CDT [facility] Blood BLOOD SPECIMEN / Unknown Venipuncture / Unknown 06/12/2019 8:14 AM CDT 06/12/2019 8:34 AM CDT Hieu Morris MD LAB - CHEMISTRY TEO AMOR [facility] Organization Address City/State/ZIP Co de Phone Number [facility] [address] [place] [address] * (ABNORMAL) BLOOD GASES ARTERIAL (06/10/2019 7:36 AM CDT) Only the most recent of4 resultswithin the time period is included. pH Arterial 7.47(H) 7.35 - 7.45 pH 06/10/2019 7:42 AM CDT [facility] Comment:H pCO2 Arterial 55(H) 35 - 45 mm hg 06/10/2019 7:42 AM CDT [facility] Comment:H pO2 Arterial 59(L) 80 - 100 mm hg 06/10/2019 7:42 AM CDT [facility] Comment:L HCO3 Arterial 39(H) 22 - 26 mmol/L 06/10/2019 7:42 AM CDT [facility] Comment:H BE Arterial 12.9(H) -2.0 - 2.0 mmol/L 06/10/2019 7:42 AM CDT [facility] Comment:H O2 Saturation Arterial 92 90 - 100 % 06/10/2019 7:42 AM CDT [facility] Hemoglobin Arterial 13.2(L) 14.0 - 16.0 gm/dL 06/10/2019 7:42 AM CDT [facility] Carboxyhemoglobin Arterial 1.3 0.0 - 2.5 % 06/10/2019 7:42 AM CDT [facility] Methemoglobin Arterial 0.2 0.0 - 2.0 % 06/10/2019 7:42 AM CDT [facility] Oxyhemoglobin Arterial 89 % 06/10/2019 7:42 AM CDT [facility] Comment:L O2 Content Arterial 16.5 % 06/09 7:42 AM CDT [facility] Comment:L Mode NC 06/10/2019 7:42 AM CDT [facility] Cyril's Test Positive 06/10/2019 7:42 AM CDT [facility] Liter Flow (LPM) 3.00 06/10/19 20 7:42 AM CDT [facility] Sample Site L Radial 06/10/2019 7:42 AM CDT [facility] Sample Type Arterial 06/10/2019 7:42 AM CDT [facility] [place] [place] [id number] 06/10/2019 7:42 AM CDT [facility] Blood, arterial ARTERIAL BLOOD SPECIMEN / Unknown 06/10/2019 7:36 AM CDT 06/10/2019 7:36 AM CDT Lance Britt MD LAB - BLOOD GAS ES ORDERABLES [facility] [address] [phone] * Simple PFT (06/04/2019 11:42 AM CDT) Narrative Procedure Note Hubert Cameron MD - 06/04/2019 11:42 AM CDT [facility] PULMONARY FUNCTION SCREENING TEST PATIENT NAME: HANS LINARES MR#: [id number] ROOM#: [id number] CSN: [id number] REFERRING PHYSICIAN: SEX: M : 1950 DATE OF TEST: INDICATION: A 69-year-old gentleman, height 5 feet 6 inches, weight 200 pounds. FINDINGS: Spirometry reveals an FVC of 0.89 L, 24% of predicted, FEV10.60 L, 22% of predicted, FEV1/FVC 67, and FEF 25%/75%, 0.34 L/second, 16% of predicted. Flow volume loop shows overall concavity and prolongedexpiratory phase. IMPRESSION: Moderate to severe obstructive airways disease with acomponent of restrictive lung disease. The test results data can be found under the MEDIA tab in Epic. HUBERT CAMERON M.D. ELISEO/GAYE #:[id number] cc: Hieu Morris MD [facility] PULMONARY FUNCTION SCREENING TEST - Hieu Morris MD RESPIRATORY THERAPY ORDERABLES [facility] * US RETROPERITONEAL COMPLETE (06/03/2019 3:33 PM CDT) Anatomical Region Laterality Modality Abdomen Ultrasound 06/03/2019 3:48 PM CDT Impressions 06/03/2019 3:50 PM CDT 1. Mild dilatation of the left renal pelvis. Otherwise unremarkable renal ultrasound. 2. Limited exam as above. *Reading Radiologist: Naomi Ward on 06/03/2019 at 3:50 PM Narrative 06/03/2019 3:50 PM CDT Ultrasound Kidney and Bladder COMPARISON: No relevant examinations. HISTORY: PIPE ,CKD TECHNIQUE: Real-time ultrasound of the kidneys and bladder with DICOM image capture performed by chief cardiopulmonary technologist. FINDINGS: Evaluation is limited by patient body habitus and patient immobility. Portions of the kidneys are not well visualized. Measurements: The right kidney measures 11.1 cm in length. The left kidney measures 8.3 cm in length. There is mild dilatation of the left renal pelvis. The right kidney is grossly unremarkable. Bladder: Decompressed by Mccarty catheter which limits evaluation. Ureteral jets: Not seen bilaterally. Procedure Note Naomi Ward MD - 06/03/2019 Ultrasound Kidney and Bladder COMPARISON: No relevant examinations. HISTORY: PIPE ,CKD TECHNIQUE: Real-time ultrasound of the kidneys and bladder with DICOM image capture performed by chief cardiopulmonary technologist. FINDINGS: Evaluation is limited by patient body habitus and patient immobility. Portions of the kidneys are not well visualized. Measurements: The right kidney measures 11.1 cm in length. The left kidney measures 8.3 cm in length. There is mild dilatation of the left renal pelvis. The right kidney is grossly unremarkable. Bladder: Decompressed by Mccarty catheter which limits evaluation. Ureteral jets: Not seen bilaterally. IMPRESSION 1. Mild dilatation of the left renal pelvis. Otherwise unremarkable renal ultrasound. 2. Limited exam as above. *Reading Radiologist: Naomi Ward on 06/03/2019 at 3:50 PM Graham Pichardo MD US ORDERABLES * (ABNORMAL) URINE MICROSCOPIC ONLY REFLEX TO CULTURE (06/03/2019 12:49 PM CDT) Reflex Status Culture to follow 06/03/2019 3:48 PM CDT [facility] RBC UA >100(A) None Seen, 0-2, 3-5 # /hpf 06/03/2019 3:48 PM CDT [facility] WBC UA 11-20(A) None Seen, 0-5 # /hpf 06/03/2019 3:48 PM CDT [facility] Bacteria UA Trace(A) None Seen 06/03/2019 3:48 PM CDT [facility] Squamous Epithelial Cells None Seen None Seen, 0-2, 3-5 /hpf 06/03/2019 3:48 PM CDT [facility] Mucus UA 1+ /LPF 06/03/2019 3:48 PM CDT [facility] Budding Yeast Many(A) None seen /hpf 06/03/2019 3:48 PM CDT [facility] Hyaline Casts 3-5(A) None Seen, 0-2 # /lpf 06/03/2019 3:48 PM CDT [facility] Urine (Urine, Mccarty Cath) Collection / Unknown 06/03/2019 12:49 PM CDT 06/03/2019 2:18 PM CDT Narrative [facility] - 06/03/2019 3:48 PM CDT Graham Pichardo MD LAB - URINALYSIS ORD ERABLES Performing Organization Address [facility]/ZIP Co de Phone Number [facility] [address] [place] [address] * (ABNORMAL) PROTEIN CREATININE RATIO URINE RANDOM PNL (06/03/2019 12:49 PM CDT) Protein Urine 62.9(H) <11.9 mg/dL 06/03/2019 3:07 PM CDT [facility] Creatinine Urine 36.75 mg/dL 06/03/2019 3:07 PM CDT [facility] Protein/Creatin ine Ratio Urine 1.71 06/03/2019 3:07 PM CDT [facility] Urine MISCELLANEOUS SAMPLES / Unknown Collection / Unknown 06/03/2019 12:49 PM CDT 06/03/2019 2:18 PM CDT Graham Pichardo MD LAB - URINE CHEMISTR Y ORDERABLES Performing Organization Address [facility]/ZIP Co de Phone Number [facility] [address] [place] [address] * CHLORIDE URINE RANDOM (06/03/2019 12:49 PM CDT) Chloride Urine 114.0 mmol/L 06/03/2019 3:07 PM CDT [facility] Urine MISCELLANEOUS SAMPLES / Unknown Collection / Unknown 06/03/2019 12:49 PM CDT 06/03/2019 2:18 PM CDT Graham Pichardo MD LAB - URINE CHEMISTR Y ORDERABLES Performing Organization Address [facility]/ZIP Co de Phone Number [facility] [address] [place] [address] * (ABNORMAL) TSH (06/01/2019 4:05 AM CDT) TSH 7.2125(H) 0.35 - 4.94 uIU/mL 06/01/2019 7:02 AM CDT [facility] Blood BLOOD SPECIMEN / Unknown Venipuncture / Unknown 06/01/2019 4:05 AM CDT 06/01/2019 4:59 AM CDT Hieu Morris MD LAB - CHEMISTRY TEO AMOR [facility] Organization Address City/State/ZIP Co de Phone Number [facility] [address] [place] [address]
--- OUTSIDE RECORDS SUMMARY | 2024-03-28 09:34 | XMS_ITS | Encounter Summary ---
Author Name [facility] Organization [facility] [employer] Address [address] [place] [address] Care Team Providers Care Manager Emergency Department Name Role Phone SHANTE TINSLEY [facility] Insurance Providers: All historical and current Section [...] PART A Jan 13, 2014 PART A [id number] [phone] Chaz LINARES PATIENT MEDICARE (WNR) MEDICARE (M) PART B Jan 13, 2014 PART B [id number] [phone] Chaz LINARES PATIENT [employer] MCR (WNR) MEDICARE ADVANTAGE [facility] (WNR) Apr 13, 2021 [id number] [phone] Chaz LINARES PATIENT Selected Encounter This section includes the information on record at [place] for the Encounter. Date/Time Encounter Type Encounter Description Reason Provider Source Mar 08, 2024 04:36 PM Outpatient Encounter ADMIN PAT ACTIVTIES (MASNONCT) LENI HEAD Encounter Template Text not used by [facility] Encounter Notes: All associated encounter notes This section contains the clinical notes associated to the Encounter. Date/Time Encounter Note(s) Provider Source Mar 08, 2024 04:36 PM PHARMACY MEDICATIO N MGT DISCHARGE NOTE: LOCAL TITLE: PHARMACY COMMUNITY CARE PRESCRIPTION PROCESSING NOT STANDARD TITLE: PHARMACY MEDICATION MGT DISCHARGE NOTE DATE OF NOTE: MAR 08, 2024@16:36 ENTRY DATE: MAR 08, 2024@16:36:18 AUTHOR: LENI HEAD WHI EXP COSIGNER: URGENCY: STATUS: COMPLETED Pharmacy service received prescription(s) via: Inbound ERx ELIGIBILITY: [facility] ([facility]) eligibility has been verified and/or is documented. Authorization #: in [facility] PRESCRIPTION INFORMATION: Provider Information:[facility], [facility] [address] [facility] [address] phone: [phone] fax: [phone] 1) jardiance 10mg tablet, take 5mg (1/2 x 10mg) PO daily #30, 0 refills DISPOSITION: Contacted patient's provider regarding: Other intervention: Comment: 5mg dose does not match dose recommended for needed indication. Spoke to Prescriber and she advised pt got this dose in hospital but unclear why. She advised that his blood sugars were good and his ECHO did not indicate heart failure so can cancel RX for jardiance at this time. She recommends pt to follow-up with PCP to determine if he needs jardiance to continue. ATTN PCP: Pt recenrly hospitalized at [facility] in [facility]. Please follow-up with pt, as appropriate /paul/ LENI HEAD PharmD [facility] Pharmacist, Pharmacy Signed: 03/08/2024 16:39 Receipt Acknowledged By: 03/08/2024 17:54 /paul/ NICOLÁS COTE,RN REGISTERED NURSE 03/13/2024 15:28 /paul/ SHANTE TINSLEY MD STAFF PHYSICIAN LENI HEAD [facility] [facility]
--- NOTE | 2024-03-28 09:36 | PC.NURSE ---
EDP at bedside to prepare for intubation, Levophed initiated, EDP giving epi IVP to avoid arrest. Pt on monitoring tech.
[2024-03-28] MEDS: RAPID SEQUENCE INTUBATION KIT 1 EACH (09:40)
--- NOTE | 2024-03-28 09:40 | PC.NURSE ---
Pt given 40 etomidate, 100 rocuronim given IVP for intubation by Dr Barnett at this time. Resp in assist.
--- NOTE | 2024-03-28 09:43 | PC.NURSE ---
Pt intubation completed by EDP Dr Barnett, positive color change,equal chest rise and fall. Pt on cardiac cath lab radiology technologist.
[2024-03-28] MEDS: fentaNYL CITRATE INJ (*CRX) 100 MCG/2 ML VIAL IV PUSH (09:57)
[2024-03-28] MEDS: FENTANYL 2,500MCG/NS250ML(*CRX 2,500 MCG/250 ML BAG IV CONT (09:58)
[2024-03-28 10:15] LABS: Basophils Percent Auto 0.2 % (0.2-1.2); Eosinophils Percent Auto 0.3 % (0-4.4); Hematocrit 36.3 % (42.0-52.0); Hemoglobin 10.4 g/dL (14.0-18.0); Immature Granulocyte Absolute 0.06 K/mm3 (0.00-0.031); Immature Granulocyte Percent A 0.6 % (0-0.5); Immature Platelet Fraction Pct 3.2 % (0.9-11.2); Lymphocytes Absolute Auto 1.47 K/mm3 (0.9-3.2); Lymphocytes Percent Auto 15.4 % (18.3-44.2); Mean Corpuscular HGB Conc 28.7 g/dl (32-36); Mean Corpuscular Volume 97.8 fl (80-100); Mean Platelet Volume 10.3 fl (7.4-10.4); Monocytes Percent Auto 10.9 % (2.6-8.5); Neutrophils Absolute Auto 6.9 K/mm3 (1.3-6.7); Neutrophils Percent Auto 72.6 % (45.5-73.1); Platelet Count Result 134 k/mm3 (150-375); Red Blood Count 3.71 M/mm3 (4.6-6.20); Red Cell Distribution Width 15.9 % (11.5-14.5); White Blood Count 9.6 K/mm3 (4.5-10.0)
[2024-03-28 10:27] LABS: Anisocytosis 1+; Hypochromasia 1+; Ovalocytes 1+; Platelet Estimate Slightly Decreased (Adequate); Schistocytes None Seen
--- NOTE | 2024-03-28 10:32 | PC.NURSE ---
pt to CT scan via stretcher on tele monitor, medications infusing, resp in assist
[2024-03-28 10:36] LABS: Alanine Aminotransferase 10 U/L (6-50); Albumin Level 3.1 g/dL (3.5-5.1); Alkaline Phosphatase 57 U/L (38-126); Aspartate Amino Transferase 18 U/L (17-59); Bilirubin,Total 0.4 mg/dL (0.2-1.3); Blood Urea Nitrogen 67 mg/dL (9-20); Carbon Dioxide > 40 mmol/L (22-30); Chloride 88 mmol/L (98-107); Estimated CRCL calculation 33 ml/min; Estimated Glomerular Filt Rate 23; Glucose 152 mg/dL (65-110); Magnesium 2.5 mg/dL (1.6-2.3); NT Pro B Type Natriuretic Pept 9230 pg/mL (19.9-100); Potassium 5.4 mmol/L (3.4-5.0); Sodium 134 mmol/L (137-145); Triglycerides 92 mg/dL (<150); Troponin I 0.042 ng/mL (0.000-0.034)
[2024-03-28 10:56] LABS: Influenza A QL RT-PCR Negative (Negative); Influenza B QL RT-PCR Negative (Negative); RSV RNA, RT-PCR Negative (Negative); SARS-CoV-2 RNA PCR Negative (Negative)
[2024-03-28 10:58] LABS: Alveolar/Arterial O2 Gradient 402.1 mmHg; Base Excess ABG 8.4 mEq/l (+/-2.0); Fractional Inspired Oxygen 75 %; HCO3 ABG 32.4 mEq/l (22.0-26.0); Oxygen Content ABG 15.2 %vol (16.0-22.0); Oxygen Saturation ABG 97.3 % (95.0-100.0); Oxyhemoglobin 96.6 % THb (90.0-100.0); PCO2 ABG 42.6 mmHg (35.0-45.0); PO2 ABG 87.4 mmHg (80.0-100.0); PO2 FiO2 Ratio Arterial Blood 1.17 %; Total Hemoglobin 11.1 g/dL (12.0-18.0); pH ABG 7.499 (7.350-7.450)
[2024-03-28] MEDS: LACTATED RINGERS 1,000 ML 999 ML IV CONT (11:00)
[2024-03-28 11:04] LABS: Arterial Blood Gas PEEP 5 cmH2O; Arterial Blood Gas Tidal Volume 500 ml; Arterial Blood Gas Vent Mode CMV; Arterial Blood Gas Ventilator rate 24 /MIN; Device VENTILATOR; Modified Allen's Test Pass; Site Drawn RIGHT RADIAL
[2024-03-28 11:05] LABS: Add Urine Microscopic? YES; Appearance Urine Cloudy (Clear); Bacteria Urine None Seen /hpf; Bilirubin Urine Negative (Negative); Blood Urine 1+ (Negative); Color Urine Yellow (Yellow); Glucose Urine UA 2+ mg/dL (Negative); Hyaline Casts Urine Present /lpf; Ketones Urine Negative (Negative); Leukocyte Esterase Ur 2+ LEU/UL (Negative); Need Manual Microscopic Reviewed; Nitrate Urine Negative (Negative); Protein Urine 2+ mg/dL (Negative); Specific Grav Ur 1.011 (1.001-1.035); Squamous Epithelial Cell Urine None Seen /hpf (Few); Urobilinogen Urine 0.2 mg/dL (<2.0); WBC Clumps Urine Present /HPF; WBC Urine >100 /hpf (0-3)
[2024-03-28] MEDS: SODIUM CHLORIDE 0.9% IV 1,000 ML 999 ML IV CONT (11:06)
[2024-03-28] MEDS: IPRATROPIUM BR 0.02% INH SOLN 0.5 MG/2.5 ML VIAL 1 MG INHALATION (11:12)
[2024-03-28] MEDS: ALBUTEROL SULFATE NEB 2.5 MG/3 ML INH 15 MG INHALATION (11:13)
--- NOTE | 2024-03-28 11:15 | ED_ITS ---
HPI - SOB/Dyspnea General Chief Complaint: Shortness of Breath/Dyspnea Stated Complaint: resp distress, AMS History of Present Illness HPI Narrative: Patient presenting here with reported shortness of breath from [facility], on arrival here he was obtunded and unable to answer my questions. Related Data Home Medications ?Medication ?Instructions ?Recorded ?Confirmed ?Last Taken ?Type albuterol sulfate 2.5 mg/3 mL 2.5 mg inhalation TID 01/13/23 03/28/24 Unknown History (0.083 %) solution for nebulization apixaban 5 mg tablet (Eliquis) 5 mg PO DAILY 01/13/23 03/28/24 Unknown History bisacodyl 10 mg rectal suppository 10 mg RECTAL DAILY PRN Constipation 01/13/23 03/28/24 Unknown History furosemide 40 mg tablet 40 mg PO DAILY 01/13/23 03/28/24 Unknown History levothyroxine 50 mcg tablet 50 mcg PO DAILY 01/13/23 03/28/24 Unknown History magnesium citrate (Citroma oral 296 ml PO PRN PRN Constipation 01/13/23 03/03/24 Unknown History solution) magnesium hydroxide 400 mg/5 mL 30 ml PO PRN PRN Constipation 01/13/23 03/03/24 Unknown History oral suspension (Milk of Magnesia) pantoprazole 40 mg tablet,delayed 40 mg PO DAILY 01/13/23 03/03/24 Unknown History release (Protonix) budesonide-formoterol HFA 160 2 puff inhalation BID 03/03/24 03/03/24 Unknown History mcg-4.5 mcg/actuation aerosol inhaler carvedilol 12.5 mg tablet 12.5 mg PO BID hypertension 03/03/24 03/28/24 Unknown History cholecalciferol (vitamin D3) 1,250 50,000 unit PO WEEKLY 03/03/24 03/28/24 Unknown History mcg (50,000 unit) capsule hydrocortisone 10 mg tablet 10 mg PO HS 03/03/24 03/28/24 Unknown History insulin aspart U-100 100 unit/mL 5 unit subcut ACHS 03/03/24 03/28/24 Unknown History (3 mL) subcutaneous pen metformin 500 mg tablet,extended 500 mg PO DAILY 03/03/24 03/28/24 Unknown History release 24 hr Allergies Allergy/AdvReac Type Severity Reaction Status Date / Time lisinopril Allergy Unknown Verified 03/03/24 19:29 Review of Systems 2 Review of Systems: ROS unobtainable: Yes unobtainable due to medical condition [facility] Past Medical History Medical History (Updated 03/28/24 @ 14:28 by Flores Barnett MD) Chronic respiratory failure with hypoxia, on home oxygen therapy Obesity hypoventilation syndrome Osteomyelitis (2020) right foot Hypothyroidism Chronic kidney disease, stage 3 Gastroesophageal reflux disease Obstructive sleep apnea treated with BiPAP Chronic obstructive pulmonary disease Sclerosing mesenteritis Hyperlipidemia Hypertension Deep venous thrombosis Cerebrovascular accident Heart failure with preserved ejection fraction Chronic anticoagulation Type 2 diabetes mellitus Urinary retention Morbid obesity Chronic kidney disease Atrial fibrillation Surgical History Surgical History Status post right foot surgery Family History Family History Father Cancer Mother Chronic obstructive pulmonary disease Cancer Social History Social History Social History: Surrogate medical decision maker: Ayana Gaytan, spouse. Code status: Smoking packs per day: 1 Smoking cigarettes per day: 20.0 Years smoked: 15 Smoking pack-years: 15.00 Smoking status: Never smoker Tobacco type: cigarettes Second hand tobacco smoke exposure: Yes Alcohol intake: never Substance use: never Substance use type: does not use Lack of Transportation: No Lack of Food: Never True Current Housing: I Have Housing Concerned About Future Housing: No Difficulty Paying Gas/Electric Bills: No Difficulty Paying for Meds: No Currently Unemployed: No Education: Decline to Answer Difficulty w/ Childcare or Family Care: No Living arrangements: [facility] Additional living arrangements comments: [facility] Occupation/Education: retired 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 EYES: conjunctiva normal LUNGS: Poor respiratory effort with minimal lung sounds HEART: Slightly tachycardic ABD: [Soft], [nontender to palpation] EXT: Right great toe with nail avulsion SKIN: See above NEURO: [obtunded. Withdraws all extremities to painful stimulus.] Course Vital Signs Vital signs: Vital Signs Temperature 97.8 F 03/28/24 09:03 Pulse Rate 106 H 03/28/24 09:03 Respiratory Rate 28 H 03/28/24 09:03 Blood Pressure 79/43 L 03/28/24 09:03 Pulse Oximetry 95 03/28/24 09:03 Oxygen Delivery Room Air 03/28/24 09:03 Temperature 97.8 F 03/28/24 09:03 Pulse Rate 119 H 03/28/24 14:06 Respiratory Rate 22 H 03/28/24 12:55 Blood Pressure 120/71 03/28/24 12:55 Pulse Oximetry 99 03/28/24 14:06 Oxygen Delivery Mechanical Ventilation 03/28/24 14:06 Oxygen Flow Rate 4 03/28/24 09:30 Fraction of Inspired Oxygen 50 03/28/24 14:06 Procedures ABG Interpretation ABG Interpretation 1: ABG Results: initial ABG c/w CO2 narcosis ABG Interpretation 2: ABG Results: 2nd abg s/p intubation improved CO2 Intubation Intubation #1: Intubation Date: 03/28/24 sedative: Etomidate Mg Given: 40 paralytic: Rocuronium Mg Given: 100 Laryngoscope: fiber optic video scope Tube Size (cm): 7.5 Method of Intubation: orotracheal Number of Attempts: 2 Tube Secured Depth (cm): 24 Tube Placement Confirmation: visualized tube passing through cords, equal breath sounds bilaterally and confirmation by capnometry Patient Tolerated Procedure: well and no complications Intubation Complications: none MDM - SOB/Dyspnea MDM Narrative Medical decision making narrative: Patient presents here with reports shortness of breath, on exam he is altered, barely able to wake up, I am highly concerned for impending airway compromise, broad workup already initiated will tentatively trial BiPAP with close observation, however patient blood pressure starting to become quite low, 60/30, I did feel it was necessary to intubate him at this time but resuscitate 1st. Levophed initiated, for blood pressure still quite low despite high doses so I did give 1 dose of push dose epinephrine which helped bring MAP > 70 and I did intubate successfully without cardiovascular collapse. I did call [facility] and [facility] to update them. tells me that he often does not wear his CPAP at night which does explain the CO2 narcosis seen on his ABG. This has improved while he is been on the ventilator, he had midline axis is obtained so he can be continued on Levophed as necessary, he has become more alert. Admitted to ICU after discussion with hospitalist and tile shader. Lab Data 03/28/24 10:03 03/28/24 10:03 Labs: Lab Results 03/28/24 03/28/24 03/28/24 Range/Units 10:03 10:12 10:55 WBC 9.6 (4.5-10.0) K/mm3 RBC 3.71 L (4.6-6.20) M/mm3 Hgb 10.4 L (14.0-18.0) g/dL Hct 36.3 L (42.0-52.0) % MCV 97.8 (80-100) fl MCH 28.0 (26-34) pg MCHC 28.7 L (32-36) g/dl RDW 15.9 H (11.5-14.5) % Plt Count 134 L (150-375) k/mm3 MPV 10.3 (7.4-10.4) fl Immature Gran % (Auto) 0.6 H (0-0.5) % Neut % (Auto) 72.6 (45.5-73.1) % Lymph % (Auto) 15.4 L (18.3-44.2) % [place] % (Auto) 10.9 H (2.6-8.5) % Eos % (Auto) 0.3 (0-4.4) % Baso % (Auto) 0.2 (0.2-1.2) % Lymph # (Auto) 1.47 (0.9-3.2) K/mm3 [place] # (Auto) 1.0 H (0.1-0.6) K/mm3 Eos # (Auto) 0.0 (0-0.3) K/mm3 Baso # (Auto) 0.0 (0.0-0.1) K/mm3 Abs Immat Gran (auto) 0.06 H (0.00-0.031) K/mm3 Absolute Neuts (auto) 6.9 H (1.3-6.7) K/mm3 Absolute Nucleated RBC 0.000 (0.0-0.012) K/mm3 Nucleated RBC % 0.0 (0.0-0.2) % Platelet Estimate Slightly decreased (Adequate) % Immature Plt Fraction 3.2 (0.9-11.2) % Hypochromasia 1+ Anisocytosis 1+ Ovalocytes 1+ Schistocytes None seen Minute Volume Not Reportable Vent Mode Cmv Tidal Volume 500 ml PEEP 5 cmH2O Peak Inspir Pressure Not Reportable Pressure Support Not Reportable Sodium 134 L (137-145) mmol/L Potassium 5.4 H (3.4-5.0) mmol/L Chloride 88 L (98-107) mmol/L Carbon Dioxide > 40 H (22-30) mmol/L Anion Gap (4-12) mmol/L BUN 67 H D (9-20) mg/dL Creatinine 2.67 H (0.7-1.3) mg/dL Estim Creat Clear Calc 33 ml/min Estimated GFR 23 L (59 - ) Glucose 152 H (65-110) mg/dL Lactic Acid (0.7-2.0) mmol/L Calcium 9.0 (8.4-10.2) mg/dL Magnesium 2.5 H (1.6-2.3) mg/dL Total Bilirubin 0.4 (0.2-1.3) mg/dL AST 18 (17-59) U/L ALT 10 (6-50) U/L Alkaline Phosphatase 57 (38-126) U/L Troponin I 0.042 H* (0.000-0.034) ng/mL NT-Pro-B Natriuret Pep 9230 H (19.9-100) pg/mL Total Protein 7.0 (6.3-8.2) g/dL Albumin 3.1 L (3.5-5.1) g/dL Triglycerides 92 (<150) mg/dL Urine Color Yellow (Yellow) Urine Appearance Cloudy H (Clear) Urine pH 7.0 (5.0-9.0) Ur Specific [place] 1.011 (1.001-1.035) Urine Protein 2+ H (Negative) mg/dL Urine Glucose (UA) 2+ H (Negative) mg/dL Urine Ketones Negative (Negative) mg/dL Ur Blood (Man) 1+ H (Negative) Urine Nitrate Negative (Negative) Urine Bilirubin Negative (Negative) Urine Urobilinogen 0.2 (<2.0) mg/dL Add Ur Microanalysis Reviewed Leukocyte Esterase Rfl 2+ H (Negative) VALERIA/UL Urine RBC 3-5 H (0-2) /hpf Urine WBC >100 H (0-3) /hpf Urine WBC Clumps Present H (None) /HPF Ur Squamous Epith Cells None seen (Few) /hpf Urine Bacteria None seen /hpf Urine Casts 11-20 Hyaline Casts Present (None) /lpf Influenza A (RT-PCR) Negative (Negative) Influenza B (RT-PCR) Negative (Negative) RSV (RT-PCR) Negative (Negative) SARS-CoV-2 RNA (RT-PCR) Negative (Negative) 03/28/24 Range/Units 11:39 WBC (4.5-10.0) K/mm3 RBC (4.6-6.20) M/mm3 Hgb (14.0-18.0) g/dL Hct (42.0-52.0) % MCV (80-100) fl MCH (26-34) pg MCHC (32-36) g/dl RDW (11.5-14.5) % Plt Count (150-375) k/mm3 MPV (7.4-10.4) fl Immature Gran % (Auto) (0-0.5) % Neut % (Auto) (45.5-73.1) % Lymph % (Auto) (18.3-44.2) % [place] % (Auto) (2.6-8.5) % Eos % (Auto) (0-4.4) % Baso % (Auto) (0.2-1.2) % Lymph # (Auto) (0.9-3.2) K/mm3 [place] # (Auto) (0.1-0.6) K/mm3 Eos # (Auto) (0-0.3) K/mm3 Baso # (Auto) (0.0-0.1) K/mm3 Abs Immat Gran (auto) (0.00-0.031) K/mm3 Absolute Neuts (auto) (1.3-6.7) K/mm3 Absolute Nucleated RBC (0.0-0.012) K/mm3 Nucleated RBC % (0.0-0.2) % Platelet Estimate (Adequate) % Immature Plt Fraction (0.9-11.2) % Hypochromasia Anisocytosis Ovalocytes Schistocytes Minute Volume Vent Mode Tidal Volume ml PEEP cmH2O Peak Inspir Pressure Pressure Support Sodium (137-145) mmol/L Potassium (3.4-5.0) mmol/L Chloride (98-107) mmol/L Carbon Dioxide (22-30) mmol/L Anion Gap (4-12) mmol/L BUN (9-20) mg/dL Creatinine (0.7-1.3) mg/dL Estim Creat Clear Calc ml/min Estimated GFR (59 - ) Glucose (65-110) mg/dL Lactic Acid 2.0 (0.7-2.0) mmol/L Calcium (8.4-10.2) mg/dL Magnesium (1.6-2.3) mg/dL Total Bilirubin (0.2-1.3) mg/dL AST (17-59) U/L ALT (6-50) U/L Alkaline Phosphatase (38-126) U/L Troponin I (0.000-0.034) ng/mL NT-Pro-B Natriuret Pep (19.9-100) pg/mL Total Protein (6.3-8.2) g/dL Albumin (3.5-5.1) g/dL Triglycerides (<150) mg/dL Urine Color (Yellow) Urine Appearance (Clear) Urine pH (5.0-9.0) Ur Specific [place] (1.001-1.035) Urine Protein (Negative) mg/dL Urine Glucose (UA) (Negative) mg/dL Urine Ketones (Negative) mg/dL Ur Blood (Man) (Negative) Urine Nitrate (Negative) Urine Bilirubin (Negative) Urine Urobilinogen (<2.0) mg/dL Add Ur Microanalysis Leukocyte Esterase Rfl (Negative) VALERIA/UL Urine RBC (0-2) /hpf Urine WBC (0-3) /hpf Urine WBC Clumps (None) /HPF Ur Squamous Epith Cells (Few) /hpf Urine Bacteria /hpf Urine Casts Hyaline Casts (None) /lpf Influenza A (RT-PCR) (Negative) Influenza B (RT-PCR) (Negative) RSV (RT-PCR) (Negative) SARS-CoV-2 RNA (RT-PCR) (Negative) ABG Data ABG results: 03/28/24 03/28/24 09:15 10:55 Puncture Site Right radial Right radial ABG pH 7.191 L* 7.499 H ABG pCO2 117.0 H* 42.6 ABG pO2 93.8 87.4 ABG PO2/FiO2 Ratio 2.61 1.17 ABG HCO3 43.8 H 32.4 H ABG O2 Saturation 94.5 L 97.3 ABG O2 Content 15.6 L 15.2 L ABG Base Excess 11.6 8.4 A-a Gradient 27.2 402.1 Oxyhemoglobin 94.7 96.6 Total Hemoglobin 11.6 L 11.1 L O2 Delivery Device Nasal cannula Ventilator O2 Liters/Min 4.0 Not Reportable Vent Rate 24 FiO2 36 75 Critical Care Time Critical Care Time Critical Care Time: Yes Total Critical Care Time: 71 Discharge Plan Discharge Clinical Impression: UTI (urinary tract infection), Acute respiratory failure with hypercapnia, Chronic respiratory failure with hypoxia, Chronic obstructive pulmonary disease Patient Disposition: Still a Patient Condition: Critical
--- NOTE | 2024-03-28 11:18 | PC.NURSE ---
This RN contacted [facility] and gave nurse to nurse report to Emperat[facility]. Discussed update as well as POC. [facility] is aware of pt diagnosis and admit to ICU.
[2024-03-28] MEDS: MIDAZOLAM HCL (*CRX) 2 MG/2 ML VIAL 4 MG IV PUSH (11:35)
--- NOTE | 2024-03-28 11:42 | PC.NURSE ---
Sam LIN at side of bed at this time for PICC line placement
[2024-03-28] MEDS: cefTRIAXone 2 GM/NS 100 ML 2 GM/100 ML BAG IVPB (12:49)
[2024-03-28] MEDS: PANTOPRAZOLE SODIUM IV 40 MG VIAL IV PUSH (12:49)
[2024-03-28] MEDS: MIDAZOLAM HCL (*CRX) 2 MG/2 ML VIAL IV PUSH (13:58)
--- NOTE | 2024-03-28 14:03 | ADMGEN ---
This patient, Hans Gaytan, was admitted to Intensive Care Unit-7. Patient/family oriented to hospital policies and general routines including ID bracelet, bed and alarms, visiting hours, pain management, procedures, bathroom and other care routines, personal items, smoking policy, room service/diet, and visiting hours. Information on how to activate the Rapid Response Team has been discussed. Patient/Family are encouraged to report perceived risks to care and to ask questions if they do not understand what they are told or what they should do.
--- NOTE | 2024-03-28 14:05 | WPDCNINT ---
Assessment and Plan Assessment and plan (1) Acute respiratory failure with hypercapnia: Code(s): J96.02 - Acute respiratory failure with hypercapnia Status: Acute Assessment and Plan: 01/25:Patient presented with respiratory distress, shortness of breath, altered mental status -initial ABG showed pH of 7.19 and pCO2 of 117, patient was obtunded, BiPAP was not an option due to altered mental status so that patient was intubated in the ER -etiology: COPD exacerbation, hypercapnic respiratory failure, pneumonia -remains on CMV mode of ventilation, peep of 5, 50% FiO2 -chest x-ray and repeat ABGs reviewed, ventilator adjusted -start Xopenex and Atrovent nebs -sedated with fentanyl and Versed infusion, maintain RASS of 0 to -2, daily SBT and SAT - RSV, COVID and influenza are negative (2) Shock: Code(s): R57.9 - Shock, unspecified Status: Acute Assessment and Plan: Patient presented with hypotension, anemia related to sepsis/infection/hypovolemia, UTI -patient given 2 L IV fluid bolus in the ER -03/28: left-sided PICC line was inserted in the ER -patient remained hypotensive, Levophed was started, maintain MAP > 65 mmHg wall show adequate end organ perfusion -creatinine has increased from baseline, monitor urine output and renal function -continue ceftriaxone, add vancomycin and doxycycline (03/28) -03/28: blood and urine cultures have been obtained. Will order sputum culture (3) Acute worsening of stage 3 chronic kidney disease: Code(s): N18.30 - Chronic kidney disease, stage 3 unspecified Status: Acute Assessment and Plan: Patient has history of chronic kidney disease stage 3 (baseline creatinine seems to be 1.4-1.8). Likely related to hypotension from shock, infection, UTI, hypovolemia -patient presented with a creatinine of 2.67 this admission -adequately fluid-resuscitated -will order maintenance IV fluids for 1000 mL -will use albumin for additional intravascular volume repletion if needed -continue to monitor urine output, renal function electrolytes (4) Atrial fibrillation: Qualifiers: Atrial fibrillation type: unspecified Qualified Code(s): I48.91 - Unspecified atrial fibrillation Code(s): I48.91 - Unspecified atrial fibrillation Status: Chronic Assessment and Plan: Patient has a history of atrial fibrillation on Eliquis and the nursing -currently was in AFib with rates in the 90s to 100s -will restart Eliquis (5) Chronic obstructive pulmonary disease: Code(s): J44.9 - Chronic obstructive pulmonary disease, unspecified Status: Acute Assessment and Plan: History of COPD, on 4 L home oxygen -continue antibiotics, bronchodilator -will hold steroids as patient does not have any wheezing (6) Diabetes mellitus: Code(s): E11.9 - Type 2 diabetes mellitus without complications Status: Chronic Assessment and Plan: Accu-Cheks and sliding scale insulin (7) Heart failure with preserved ejection fraction: Code(s): I50.30 - Unspecified diastolic (congestive) heart failure Status: Acute Assessment and Plan: ProBNP was 9230 -troponin was 0.042, -will repeat troponin level -chest x-ray does not look fluid volume overloaded -continue to monitor -check echocardiogram (8) Hypothyroidism: Code(s): E03.9 - Hypothyroidism, unspecified Status: Acute Assessment and Plan: Will restart home pneumothorax (9) Urinary tract infection: Code(s): N39.0 - Urinary tract infection, site not specified Status: Acute Assessment and Plan: UA was reflective of UTI, -Continue antibiotics as above, urine cultures have been obtained Plan DVT prophylaxis: Eliquis Stress ulcer prophylaxis: Protonix Nutrition: Will start tube feeds in a.m. Code Status: Full code Critical Care Time Spent: 55 minutes Due to a high probability of clinically significant, life threatening deterioration, the patient required my highest level of preparedness to intervene emergently and I personally spent this critical care time directly and personally managing the patient. This critical care time included obtaining a history; examining the patient; pulse oximetry; ordering and review of studies; arranging urgent treatment with development of a management plan; evaluation of patient's response to treatment; frequent reassessment; and discussions with other providers. It was exclusive of separately billable procedures and treating other patients and teaching time. Please see Assessment and Plan section and the rest of the note for further information on patient assessment and treatment This dictation may have been done utilizing a voice recognition system. Attempts have been made to correct errors. However, there may be uncorrected grammatical, spelling, and recognitions errors present. 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 Consult date: 03/28/24 Reason for consult: Acute hypercapnic respiratory failure, encephalopathy, hypotensive, shock, pneumonia, UTI, acute on chronic kidney disease HPI: Hans Gaytan is a 74 year old male with past medical history of chronic hypercapnic and hypoxic respiratory failure on 4 L off oxygen at the senior care, obesity hypoventilation syndrome, history of right foot osteomyelitis, chronic kidney disease stage 3, obstructive sleep apnea on BiPAP, GERD, hypothyroidism, hyperlipidemia, essential hypertension a history of DVT, history of CVA, has heart failure with preserved ejection fraction, history of atrial fibrillation on Eliquis presents to the ED on 01/25/2025 with complains of shortness of breath dyspnea from the senior care via EMS. On arrival to the ED patient patient was obtunded, initial ABG showed a pH of 7.19, pCO2 of 117, PO2 of 93, HC03 43, O2 sats 94% on 4 L nasal cannula. Patient was obtunded with altered mental status and would have not tolerated BiPAP so ER physician intubated the patient. Patient was given 2 L IV fluids, PICC line was placed in the left upper arm and started on Levophed. Patient was transferred to the ICU for further management In the ER hemoglobin S WBC count was 9.6, hemoglobin 10.4, platelets 134. Sodium 134, potassium 5.4, CO2>40, BUN 67, creatinine of 2.67, glucose 152. Troponin was 0.042, proBNP was 9230. UA was positive for UTI for. Influenza, RSV and SARS-CoV-2 PCR was negative -chest x-ray on admission showed airspace opacities in mid and lower lung zones, likely atelectasis, cardiomegaly -CT brain on admission: No intracranial hemorrhage, mass, or acute infarct. Atrophy and chronic white matter changes Patient seen and examined upon arrival in the ICU. Remains intubated on CMV mode of ventilation, peep of 5 and 50% FiO2. Sedated with fentanyl infusion, does not open his eyes or follow simple commands. Breathing with the ventilator. Remains on Levophed at 5 mcg/min. Patient received 2 L IV fluid bolus in the ER, ceftriaxone IV x1. Has a Mccarty catheter with adequate urine output, currently afebrile. Tachycardic Review of Systems Review of Systems: ROS unobtainable: Yes unobtainable due to endotracheal tube, unobtainable due to medical condition and unobtainable due to mental status PMFSH Past Medical History Medical History (Updated 03/28/24 @ 14:28 by Flores Barnett MD) Chronic respiratory failure with hypoxia, on home oxygen therapy Obesity hypoventilation syndrome Osteomyelitis (2019) right foot Hypothyroidism Chronic kidney disease, stage 3 Gastroesophageal reflux disease Obstructive sleep apnea treated with BiPAP Chronic obstructive pulmonary disease Sclerosing mesenteritis Hyperlipidemia Hypertension Deep venous thrombosis Cerebrovascular accident Heart failure with preserved ejection fraction Chronic anticoagulation Type 2 diabetes mellitus Urinary retention Morbid obesity Chronic kidney disease Atrial fibrillation Surgical History Surgical History Status post right foot surgery Family History Family History Father Cancer Mother Chronic obstructive pulmonary disease Cancer Social History Social History Social History: Surrogate medical decision maker: Ayana Gaytan, spouse. Code status: Smoking packs per day: 1 Smoking cigarettes per day: 20.0 Years smoked: 15 Smoking pack-years: 15.00 Smoking status: Never smoker Tobacco type: cigarettes Second hand tobacco smoke exposure: Yes Alcohol intake: never Substance use: never Substance use type: does not use Lack of Transportation: No Lack of Food: Never True Current Housing: I Have Housing Concerned About Future Housing: No Difficulty Paying Gas/Electric Bills: No Difficulty Paying for Meds: No Currently Unemployed: No Education: Decline to Answer Difficulty w/ Childcare or Family Care: No Living arrangements: senior care Additional living arrangements comments: [place] Occupation/Education: retired 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 Spiritual care concerns: No Agree to blood products: Yes Meds Home Medications and Allergies Home Medications ?Medication ?Instructions ?Recorded ?Confirmed ?Type albuterol sulfate 2.5 mg/3 mL 2.5 mg inhalation TID 01/13/23 03/28/24 History (0.083 %) solution for nebulization apixaban 5 mg tablet (Eliquis) 5 mg PO DAILY 01/13/23 03/28/24 History bisacodyl 10 mg rectal suppository 10 mg RECTAL DAILY PRN Constipation 01/13/23 03/28/24 History furosemide 40 mg tablet 40 mg PO DAILY 01/13/23 03/28/24 History levothyroxine 50 mcg tablet 50 mcg PO DAILY 01/13/23 03/28/24 History magnesium citrate (Citroma oral 296 ml PO PRN PRN Constipation 01/13/23 03/03/24 History solution) magnesium hydroxide 400 mg/5 mL 30 ml PO PRN PRN Constipation 01/13/23 03/03/24 History oral suspension (Milk of Magnesia) pantoprazole 40 mg tablet,delayed 40 mg PO DAILY 01/13/23 03/03/24 History release (Protonix) budesonide-formoterol HFA 160 2 puff inhalation BID 03/03/24 03/03/24 History mcg-4.5 mcg/actuation aerosol inhaler carvedilol 12.5 mg tablet 12.5 mg PO BID hypertension 03/03/24 03/28/24 History cholecalciferol (vitamin D3) 1,250 50,000 unit PO WEEKLY 03/03/24 03/28/24 History mcg (50,000 unit) capsule hydrocortisone 10 mg tablet 10 mg PO HS 03/03/24 03/28/24 History insulin aspart U-100 100 unit/mL 5 unit subcut ACHS 03/03/24 03/28/24 History (3 mL) subcutaneous pen metformin 500 mg tablet,extended 500 mg PO DAILY 03/03/24 03/28/24 History release 24 hr empagliflozin 10 mg tablet 5 mg (1/2 x 10 mg) PO DAILY #30 03/07/24 03/28/24 Rx (Jardiance) tabs Allergies Allergy/AdvReac Type Severity Reaction Status Date / Time lisinopril Allergy Unknown Verified 03/03/24 19:29 Vital Signs Vital Signs - 24 hr 03/28/24 09:03 03/28/24 09:16 03/28/24 09:21 Temperature 97.8 F Pulse Rate 106 H 100 98 Respiratory Rate 28 H 25 H 21 H Blood Pressure 79/43 L Pulse Oximetry 95 Oxygen Delivery Room Air Oxygen Flow Rate Fraction of Inspired Oxygen 03/28/24 09:25 03/28/24 09:30 03/28/24 09:37 Temperature Pulse Rate 98 104 H Respiratory Rate 25 H Blood Pressure 59/47 L 128/82 Pulse Oximetry 98 92 Oxygen Delivery Nasal Cannula Oxygen Flow Rate 4 Fraction of Inspired Oxygen 03/28/24 09:50 03/28/24 09:54 03/28/24 09:58 Temperature Pulse Rate 152 H 137 H 131 H Respiratory Rate 24 H Blood Pressure Pulse Oximetry 100 Oxygen Delivery Mechanical Ventilation Oxygen Flow Rate Fraction of Inspired Oxygen 75 03/28/24 10:15 03/28/24 10:34 03/28/24 10:45 Temperature Pulse Rate 111 H 100 Respiratory Rate 24 H Blood Pressure 119/76 Pulse Oximetry 100 100 Oxygen Delivery Mechanical Ventilation Mechanical Ventilation Oxygen Flow Rate Fraction of Inspired Oxygen 75 03/28/24 10:57 03/28/24 11:00 03/28/24 11:02 Temperature Pulse Rate 90 84 79 Respiratory Rate 24 H Blood Pressure 70/59 L 77/29 L Pulse Oximetry 99 99 Oxygen Delivery Mechanical Ventilation Oxygen Flow Rate Fraction of Inspired Oxygen 75 03/28/24 11:09 03/28/24 11:10 03/28/24 11:15 Temperature Pulse Rate 91 95 99 Respiratory Rate 22 H 22 H Blood Pressure 99/71 L Pulse Oximetry 100 Oxygen Delivery Oxygen Flow Rate Fraction of Inspired Oxygen 03/28/24 11:29 03/28/24 11:40 03/28/24 12:45 Temperature Pulse Rate 108 H 108 H 109 H Respiratory Rate 24 H 24 H 22 H Blood Pressure 111/81 Pulse Oximetry 98 Oxygen Delivery Oxygen Flow Rate Fraction of Inspired Oxygen 03/28/24 12:47 03/28/24 12:48 03/28/24 12:55 Temperature Pulse Rate 109 H 111 H 119 H Respiratory Rate 22 H 22 H Blood Pressure 120/71 Pulse Oximetry 98 100 Oxygen Delivery Mechanical Ventilation Oxygen Flow Rate Fraction of Inspired Oxygen 50 Exam Narrative: General: Patient intubated, sedated, in no acute distress HEENT:? Pupils are pinpoint but equal and reactive, sclerae ischemia, ETT in place Neck:? Supple, thick neck Respiratory:? Coarse breath sounds bilaterally, decreased at bases, no wheezing, adequate air entry Cardiac:? Irregularly irregular, tachycardia Abdomen:? Says soft, nontender, nondistended, morbidly obese, hypoactive bowel sound Extremities:? Trace bilateral lower extremity edema, pitting edema on dorsum of the feet bilaterally. Palpable pedal pulses Neuro:? Patient is intubated, sedated, does not open his eyes or follow simple commands. Does withdraw to pain Skin:? Left big toe nail seems to have, off with residual clot Psych:? Unable to assess at this time Results Labs 03/28/24 10:03 03/28/24 10:03 Labs: Short CBC 03/28/24 Range/Units 10:03 WBC 9.6 (4.5-10.0) K/mm3 Hgb 10.4 L (14.0-18.0) g/dL Hct 36.3 L (42.0-52.0) % Plt Count 134 L (150-375) k/mm3 BMP 03/28/24 10:03 Sodium 134 L Potassium 5.4 H Chloride 88 L Carbon Dioxide > 40 H BUN 67 H D Creatinine 2.67 H Glucose 152 H Calcium 9.0 Cardiac Enzymes 03/28/24 Range/Units 10:03 Troponin I 0.042 H* (0.000-0.034) ng/mL Liver Function 03/28/24 Range/Units 10:03 Total Bilirubin 0.4 (0.2-1.3) mg/dL AST 18 (17-59) U/L ALT 10 (6-50) U/L Alkaline Phosphatase 57 (38-126) U/L Albumin 3.1 L (3.5-5.1) g/dL Urine 03/28/24 Range/Units 10:12 Urine Color Yellow (Yellow) Urine Appearance Cloudy H (Clear) Urine pH 7.0 (5.0-9.0) Ur Specific [place] 1.011 (1.001-1.035) Urine Protein 2+ H (Negative) mg/dL Urine Glucose (UA) 2+ H (Negative) mg/dL Quality VTE Prophylaxis VTE prophylaxis: pharmacologic ordered Hospitalist MIPS Advance Care Plan I have confirmed that the patient's Advanced Care Plan is present, code status is documented, or surrogate decision maker is listed in patient medical record.: Yes Medication Reconciliation I have utilized all available resources to obtain, update and review the patients current medications (includes all prescriptions, OTC, herbals, cannabis, and nutritional supplements).: Yes
[2024-03-28] MEDS: ALBUMIN HUMAN 25% 25 GM/100 ML 100 ML IVPB ×2 (14:12→20:32)
[2024-03-28] MEDS: SODIUM ZIRCONIUM CYCLOSILICATE 10 GM POWD.PACK PO (14:13)
[2024-03-28] MEDS: MIDAZOLAM 100MG/NS 100ML(*CRX) 100 MG/100 ML BAG IV CONT (14:21)
[2024-03-28] MEDS: DEXTROSE 50% 25 GM/50 ML SYRINGE IV PUSH (14:23)
[2024-03-28] MEDS: INSULIN HUMAN REGULAR (*BKC) 100 UNITS/ML 10 UNITS IV PUSH (14:23)
[2024-03-28] MEDS: LEVALBUTEROL NEB 1.25 MG/3 ML INHALATION ×2 (14:24→19:32)
[2024-03-28] MEDS: DOXYCYCLINE 100 MG/NS 100 ML 100 MG/100 ML BAG IVPB ×2 (14:24→20:33)
[2024-03-28] MEDS: IPRATROPIUM BR 0.02% INH SOLN 0.5 MG/2.5 ML VIAL INHALATION ×2 (14:24→19:32)
[2024-03-28 14:33] LABS: Glucose Point of Care 161 mg/dl (65-105)
[2024-03-28] MEDS: SALINE LOCK FLUSH 10 ML IV PUSH ×2 (14:33→20:34)
--- NOTE | 2024-03-28 14:38 | P.HP_ITS ---
H&P: HPI History of Present Illness Date/Time: 03/28/24 14:38 Chief Complaint: Shortness breath Narrative: 74-year-old male past medical history diabetes, chronic kidney disease stage 3, obstructive sleep apnea compliant with BiPAP, history of DVT, CVA, CHF and diabetes presents to the hospital with shortness of breath. According to the ED note upon arrival to the ED the patient was attended. Patient was intubated and started on pressors for 70/29. HPI limited due to patient being intubated. In the ED lab work showed hemoglobin of 10.4 which is around baseline, potassium of 5.4, carbon dioxide a over 40, BUN of 67, creatinine of 2.67 baseline around 1.6, blood sugar of 152, magnesium of 2.5, troponin of 0.042, BNP of 9230, UA shows 2+ leukocyte esterase and negative for nitrates. Influenza A/B, RSV, COVID negative. Chest x-ray shows no pleural effusion or pneumothorax, abdominal x-ray shows, NG in the stomach okay to use, head CT shows no acute process, PICC line with proper placement okay to use. Blood cultures pending. EKG shows AFib with RVR rate of 102. Patient has been started on Rocephin, albumin, doxycycline, vancomycin, levo and given 2 L of IV fluids. Patient admitted to ICU Review of Systems Review of Systems: ROS unobtainable: Yes unobtainable due to endotracheal tube [facility] Past Medical History Medical History Chronic respiratory failure with hypoxia, on home oxygen therapy Obesity hypoventilation syndrome Osteomyelitis (2019) right foot Hypothyroidism Chronic kidney disease, stage 3 Gastroesophageal reflux disease Obstructive sleep apnea treated with BiPAP Chronic obstructive pulmonary disease Sclerosing mesenteritis Hyperlipidemia Hypertension Deep venous thrombosis Cerebrovascular accident Heart failure with preserved ejection fraction Chronic anticoagulation Type 2 diabetes mellitus Urinary retention Morbid obesity Chronic kidney disease Atrial fibrillation Surgical History Surgical History Status post right foot surgery Family History Family History Father Cancer Mother Chronic obstructive pulmonary disease Cancer Social History Social History Social History: Surrogate medical decision maker: Ayana Gaytan, spouse. Code status: Smoking packs per day: 1 Smoking cigarettes per day: 20.0 Years smoked: 15 Smoking pack-years: 15.00 Smoking status: Never smoker Tobacco type: cigarettes Second hand tobacco smoke exposure: Yes Alcohol intake: never Substance use: never Substance use type: does not use Lack of Transportation: No Lack of Food: Never True Current Housing: I Have Housing Concerned About Future Housing: No Difficulty Paying Gas/Electric Bills: No Difficulty Paying for Meds: No Currently Unemployed: No Education: Decline to Answer Difficulty w/ Childcare or Family Care: No Living arrangements: senior living Additional living arrangements comments: [place] Occupation/Education: retired 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 Spiritual care concerns: No Agree to blood products: Yes Meds Home Medications and Allergies Home Medications ?Medication ?Instructions ?Recorded ?Confirmed ?Type albuterol sulfate 2.5 mg/3 mL 2.5 mg inhalation TID 01/13/23 03/28/24 History (0.083 %) solution for nebulization apixaban 5 mg tablet (Eliquis) 5 mg PO DAILY 01/13/23 03/28/24 History bisacodyl 10 mg rectal suppository 10 mg RECTAL DAILY PRN Constipation 01/13/23 03/28/24 History furosemide 40 mg tablet 40 mg PO DAILY 01/13/23 03/28/24 History levothyroxine 50 mcg tablet 50 mcg PO DAILY 01/13/23 03/28/24 History magnesium citrate (Citroma oral 296 ml PO PRN PRN Constipation 01/13/23 03/28/24 History solution) magnesium hydroxide 400 mg/5 mL 30 ml PO PRN PRN Constipation 01/13/23 03/28/24 History oral suspension (Milk of Magnesia) pantoprazole 40 mg tablet,delayed 40 mg PO DAILY 01/13/23 03/28/24 History release (Protonix) budesonide-formoterol HFA 160 2 puff inhalation BID 03/03/24 03/28/24 History mcg-4.5 mcg/actuation aerosol inhaler carvedilol 12.5 mg tablet 12.5 mg PO BID hypertension 03/03/24 03/28/24 History cholecalciferol (vitamin D3) 1,250 50,000 unit PO WEEKLY 03/03/24 03/28/24 History mcg (50,000 unit) capsule hydrocortisone 10 mg tablet 10 mg PO HS 03/03/24 03/28/24 History insulin aspart U-100 100 unit/mL 5 unit subcut ACHS 03/03/24 03/28/24 History (3 mL) subcutaneous pen metformin 500 mg tablet,extended 500 mg PO DAILY 03/03/24 03/28/24 History release 24 hr empagliflozin 10 mg tablet 5 mg (1/2 x 10 mg) PO DAILY #30 03/07/24 03/28/24 Rx (Jardiance) tabs Saccharomyces boulardii 250 mg 250 mg PO BID 03/28/24 03/28/24 History capsule (Daily Probiotic (S. boulardii)) cholecalciferol (vitamin D3) 125 250 mcg PO WEEKLY 03/28/24 03/28/24 History mcg (5,000 unit) tablet meropenem 1 gram intravenous 1 g IV Q12H 03/28/24 03/28/24 History solution multivitamin 1 tablet PO DAILY 03/28/24 03/28/24 History ondansetron 4 mg disintegrating 4 mg PO Q8H PRN nausea and vomiting 03/28/24 03/28/24 History tablet Allergies Allergy/AdvReac Type Severity Reaction Status Date / Time lisinopril Allergy Unknown Verified 03/28/24 16:52 Vital Signs Vital Signs - 24 hr 03/28/24 09:03 03/28/24 09:16 03/28/24 09:21 Temperature 97.8 F Pulse Rate 106 H 100 98 Respiratory Rate 28 H 25 H 21 H Blood Pressure 79/43 L Pulse Oximetry 95 Oxygen Delivery Room Air Oxygen Flow Rate Fraction of Inspired Oxygen 03/28/24 09:25 03/28/24 09:30 03/28/24 09:37 Temperature Pulse Rate 98 104 H Respiratory Rate 25 H Blood Pressure 59/47 L 128/82 Pulse Oximetry 98 92 Oxygen Delivery Nasal Cannula Oxygen Flow Rate 4 Fraction of Inspired Oxygen 03/28/24 09:50 03/28/24 09:54 03/28/24 09:58 Temperature Pulse Rate 152 H 137 H 131 H Respiratory Rate 24 H Blood Pressure Pulse Oximetry 100 Oxygen Delivery Mechanical Ventilation Oxygen Flow Rate Fraction of Inspired Oxygen 75 03/28/24 10:15 03/28/24 10:34 03/28/24 10:45 Temperature Pulse Rate 111 H 100 Respiratory Rate 24 H Blood Pressure 119/76 Pulse Oximetry 100 100 Oxygen Delivery Mechanical Ventilation Mechanical Ventilation Oxygen Flow Rate Fraction of Inspired Oxygen 75 03/28/24 10:57 03/28/24 11:00 03/28/24 11:02 Temperature Pulse Rate 90 84 79 Respiratory Rate 24 H Blood Pressure 70/59 L 77/29 L Pulse Oximetry 99 99 Oxygen Delivery Mechanical Ventilation Oxygen Flow Rate Fraction of Inspired Oxygen 75 03/28/24 11:09 03/28/24 11:10 03/28/24 11:15 Temperature Pulse Rate 91 95 99 Respiratory Rate 22 H 22 H Blood Pressure 99/71 L Pulse Oximetry 100 Oxygen Delivery Oxygen Flow Rate Fraction of Inspired Oxygen 03/28/24 11:29 03/28/24 11:40 03/28/24 12:45 Temperature Pulse Rate 108 H 108 H 109 H Respiratory Rate 24 H 24 H 22 H Blood Pressure 111/81 Pulse Oximetry 98 Oxygen Delivery Oxygen Flow Rate Fraction of Inspired Oxygen 03/28/24 12:47 03/28/24 12:48 03/28/24 12:55 Temperature Pulse Rate 109 H 111 H 119 H Respiratory Rate 22 H 22 H Blood Pressure 120/71 Pulse Oximetry 98 100 Oxygen Delivery Mechanical Ventilation Oxygen Flow Rate Fraction of Inspired Oxygen 50 03/28/24 14:06 03/28/24 14:21 03/28/24 14:25 Temperature Pulse Rate 119 H 101 H 109 H Respiratory Rate 18 18 Blood Pressure Pulse Oximetry 99 Oxygen Delivery Mechanical Ventilation Oxygen Flow Rate Fraction of Inspired Oxygen 50 03/28/24 14:37 Temperature Pulse Rate 106 H Respiratory Rate 18 Blood Pressure Pulse Oximetry Oxygen Delivery Oxygen Flow Rate Fraction of Inspired Oxygen Exam Narrative: General: Intubated sedated HEENT: normocephalic, atraumatic. Mucous membranes moist. EOMI, PERRLA, bilateral sclera anicteric, no conjunctival injection. Neck supple without JVD, lymphadenopathy, or bruit. ETT, OG Respiratory: Synchronous with vent Cardiovascular: Regular rate and rhythm, normal S1-S2 upon ascultation. No murmurs, rubs, or clicks. PMI is nondisplaced, capillary refill less than 3 second. Abdomen: Soft, round, no pulsatile masses, nondistended . No rebound, no guarding. No CVA tenderness, no hepatosplenomegaly. Bowel sounds present to all four quadrants. No high pitch or tinkling sounds, resonant to percussion. Extremities: No cyanosis, clubbing, or edema present. Pulses are palpable 2/2. Neuro: PERRLA. Intubated sedated Skin: Warm, dry, and intact, without rash, erythema, or lesion. Psych: Unable to assess H&P: Results Labs Labs: Short CBC 03/28/24 Range/Units 10:03 WBC 9.6 (4.5-10.0) K/mm3 Hgb 10.4 L (14.0-18.0) g/dL Hct 36.3 L (42.0-52.0) % Plt Count 134 L (150-375) k/mm3 BMP 03/28/24 10:03 Sodium 134 L Potassium 5.4 H Chloride 88 L Carbon Dioxide > 40 H BUN 67 H D Creatinine 2.67 H Glucose 152 H Calcium 9.0 Cardiac Enzymes 03/28/24 Range/Units 10:03 Troponin I 0.042 H* (0.000-0.034) ng/mL Liver Function 03/28/24 Range/Units 10:03 Total Bilirubin 0.4 (0.2-1.3) mg/dL AST 18 (17-59) U/L ALT 10 (6-50) U/L Alkaline Phosphatase 57 (38-126) U/L Albumin 3.1 L (3.5-5.1) g/dL Urine 03/28/24 Range/Units 10:12 Urine Color Yellow (Yellow) Urine Appearance Cloudy H (Clear) Urine pH 7.0 (5.0-9.0) Ur Specific [place] 1.011 (1.001-1.035) Urine Protein 2+ H (Negative) mg/dL Urine Glucose (UA) 2+ H (Negative) mg/dL Assessment and Plan Assessment and plan (1) Acute respiratory failure with hypercapnia: Code(s): J96.02 - Acute respiratory failure with hypercapnia Status: Acute Assessment and Plan: Admitted to ICU Intubated Management per ICU (2) PIPE (acute kidney injury): Code(s): N17.9 - Acute kidney failure, unspecified Status: Acute Assessment and Plan: IVF for hydration A.m. labs Urine electrolytes (3) Shock: Code(s): R57.9 - Shock, unspecified Status: Acute Assessment and Plan: Secondary to above 2 L bolus in ED PICC line placed On levo Vancomycin, Rocephin and doxycycline Stress ulcer prophylaxis Hold home antihypertensives and diuretics (4) Urinary tract infection: Code(s): N39.0 - Urinary tract infection, site not specified Status: Acute Assessment and Plan: IV Rocephin (5) Diabetes mellitus: Code(s): E11.9 - Type 2 diabetes mellitus without complications Status: Chronic Assessment and Plan: Accu-Cheks q.6 and SSI NPO (6) Hypothyroidism: Code(s): E03.9 - Hypothyroidism, unspecified Status: Acute Assessment and Plan: IV Synthroid (7) Heart failure with preserved ejection fraction: Code(s): I50.30 - Unspecified diastolic (congestive) heart failure Status: Acute Assessment and Plan: Holding diuretics at this time due to sepsis and hypotension Monitor for fluid overload (8) Hyperkalemia: Code(s): E87.5 - Hyperkalemia Status: Acute Assessment and Plan: Improved Lokelma Dextrose and IV insulin Plan Daughter at bedside and updated on patient's plan of care. She states that she is the POA about her father did not want to be reintubated as he was intubated several times in the fall. Will continue management with full code until POA paperwork is provided. Daughter where Quality VTE Prophylaxis VTE prophylaxis: mechanical ordered and pharmacologic ordered Hospitalist MIPS Advance Care Plan I have confirmed that the patient's Advanced Care Plan is present, code status is documented, or surrogate decision maker is listed in patient medical record.: Yes Medication Reconciliation I have utilized all available resources to obtain, update and review the patients current medications (includes all prescriptions, OTC, herbals, cannabis, and nutritional supplements).: Yes
[2024-03-28 14:57] LABS: Creatine Kinase 61 U/L (55-170)
[2024-03-28 15:12] LABS: Troponin I 0.122 ng/mL (0.000-0.034)
[2024-03-28 15:25] LABS: MRSA (PCR) DETECTED (NOT DETECTE)
[2024-03-28] MEDS: LACTATED RINGERS 1,000 ML 75 ML IV CONT (15:39)
[2024-03-28] MEDS: VANCOMYCIN 2,000 MG/NS 500 ML BAG 250 MG IVPB (15:56)
[2024-03-28 16:20] LABS: Eosinophil Urine None Seen % (None Seen); Urine Eos QC 2nd Tech Confirmed
[2024-03-28 16:48] LABS: Creatinine Urine 28.4 mg/dL
[2024-03-28 16:52] LABS: Potassium Urine Random 23.9 meq/L; Sodium Urine Random 61 meq/L
[2024-03-28 17:21] LABS: Glucose Point of Care 123 mg/dl (65-105)
[2024-03-28 17:44] LABS: Anion Gap 6 mmol/L (4-12); Blood Urea Nitrogen 58 mg/dL (9-20); Calcium 8.7 mg/dL (8.4-10.2); Carbon Dioxide 36 mmol/L (22-30); Chloride 92 mmol/L (98-107); Estimated CRCL calculation 34 ml/min; Estimated Glomerular Filt Rate 28; Glucose 115 mg/dL (65-110); Potassium 4.1 mmol/L (3.4-5.0); Sodium 134 mmol/L (137-145)
[2024-03-28] MEDS: MINERAL OIL/WHITE PETROLATUM OINTMENT 1 APPLIC EACH EYE (20:34)
[2024-03-28] MEDS: CENTRAL LINE FLUSH 10 ML IV PUSH (20:35)
[2024-03-29] VITALS (47 sets, daily range): BP systolic 75–176; BP diastolic 41–162; PULSE 74–132; RESP 18–22; TEMP 36.3–37.7; O2SAT 88–98; BMI 40.4
--- NOTE | 2024-03-29 | ECHO_ITS ---
Patient Info Name: Hans Gaytan Age: 74 years : 1950 Gender: Male Ht: 69 in Wt: 273 lbs BSA: 2.51 m2 HR: 97 bpm BP: 104 / 62 mmHg Technical Quality: Good Exam Date: 03/29/2024 1:41 PM Exam Location: Echo Lab Exam Room: ICU 7 Patient Status: Inpatient Admit Date: 03/28/2024 Staff Ordering Physician: Blanche Andrade MD R D Manager: Della Summers RDCS Attending Provider: Jeannine Pemberton MD Referring Physician: Lupe MANCIA; Exam Type: CA echo doppler color flow Study Info Indications - Acute resp failure Complete two-dimensional, color flow and Doppler transthoracic echocardiogram is performed. Summary 1. Complete two-dimensional, color flow and Doppler transthoracic echocardiogram is performed. 2. Left ventricular chamber dimension is moderately enlarged. 3. Left ventricular systolic function is moderately globally reduced, estimated at 40-45%. 4. The left ventricular diastolic function is normal. 5. E/e' 9 is minimally elevated. 6. Left atrial chamber dimension is moderately enlarged. 7. Right atrial chamber dimension is moderately enlarged. 8. There is mild aortic valve sclerosis. 9. There is mild mitral valve regurgitation. 10. There is mild to moderate tricuspid valve regurgitation. 11. Severe pulmonary hypertension, estimated pulmonary arterial systolic pressure is 64 mmHg. Left Ventricle E/e' 9 is minimally elevated. Left ventricular chamber dimension is moderately enlarged. Left ventricular systolic function is moderately globally reduced, estimated at 40-45%. The left ventricular diastolic function is normal. Right Ventricle Right ventricular chamber dimension is not well visualized. Left Atria Left atrial chamber dimension is moderately enlarged. Right Atria Right atrial chamber dimension is moderately enlarged. Aortic Valve The aortic valve is trileaflet. There is mild aortic valve sclerosis. There is no aortic valve stenosis. There is no aortic valve regurgitation. Pulmonic Valve There is no pulmonic regurgitation. Mitral Valve There is no mitral valve stenosis. There is mild mitral valve regurgitation. Tricuspid Valve There is mild to moderate tricuspid valve regurgitation. Severe pulmonary hypertension, estimated pulmonary arterial systolic pressure is 64 mmHg. Pericardium/Pleural There is no pericardial effusion. Inferior Vena Cava Normal inferior vena cava with >50% collapse upon inspiration consistent with normal right atrial pressure, 5 mmHg. Aorta The aortic root size at the sinus of Valsalva is normal. Left Ventricular Outflow Tract Name Value Normal LVOT 2D LVOT Diameter 2.4 cm LVOT Doppler LVOT Peak Gradient 2 mmHg LVOT Mean Gradient 1 mmHg LVOT VTI 11 cm LVOT VTI/AV VTI Ratio 0.5 LVOT Stroke Volume 48 ml LVOT CO 3.7 l/min LVOT CI 1.5 l/min/m2 Pulmonic Valve Name Value Normal PV Doppler PV Peak Gradient 3 mmHg Mitral Valve Name Value Normal MV Doppler MV Peak Gradient 6 mmHg MV Mean Gradient 1 mmHg MV Decel R[place]y 583 cm/s2 MV PHT 46 ms MV Area (PHT) 4.8 cm2 4.0-5.0 MV Area (Cont Eq VTI) 2.1 cm2 MV Diastolic Function MV E Peak Velocity 92 cm/s MV A Peak Velocity 27 cm/s MV E/A 3.4 MV Decel Time 158 ms MV Annular TDI MV E/e' (Septal) 10.0 <=8.0 MV E/e' (Lateral) 9.6 <=8.0 MV E/e' (Average) 9.8 Tricuspid Valve Name Value Normal TV Regurgitation Doppler TR Peak Velocity 384 cm/s TR Peak Gradient 54 mmHg Estimated PAP/RSVP RA Pressure 5 mmHg <=5 PA Systolic Pressure 64 mmHg <36 RV Systolic Pressure 64 mmHg <36 Aortic Valve Name Value Normal AV Doppler AV Peak Velocity 124 cm/s AV Peak Gradient 6 mmHg AV Mean Gradient 4 mmHg AV VTI 22 cm AV Area (Cont Eq VTI) 2.2 cm2 >=3.0 AV Area (Cont Eq Dejan) 2.4 cm2 AV Regurgitation 2D LVOT Area 4.4 cm2 Ventricles Name Value Normal LV Dimensions 2D/MM IVS Diastolic Thickness (2D) 0.9 cm 0.6-1.0 LVID Diastole (2D) 5.2 cm 4.2-5.8 LVIW Diastolic Thickness (2D) 0.8 cm 0.6-1.0 LVID Systole (2D) 4.2 cm 2.5-4.0 LVOT Diameter 2.4 cm LV Mass (2D Cubed) 157.77 g 88.00-224.00 LV Mass Index (2D Cubed) 63 g/m2 49-115 Relative Wall Thickness (2D) 0.32 LV Fractional Shortening/Ejection Fraction 2D/MM LV Fractional Shortening (2D) 20 % 25-43 LV EF (2D Teicholz) 40 % 52-72 LV Diastolic Volume (2C MOD) 169 ml LV EF (2C MOD) 45 % Atria Name Value Normal LA Dimensions LA Volume (4C A-L) 94 ml LA Volume (BP A-L) 104 ml RA Dimensions RA Area (4C) 26.8 cm2 <=18.0 Report Signatures
[2024-03-29 00:15] LABS: Glucose Point of Care 156 mg/dl (65-105)
[2024-03-29] MEDS: ALBUMIN HUMAN 25% 25 GM/100 ML 100 ML IVPB ×2 (00:27→06:44)
[2024-03-29] MEDS: IPRATROPIUM BR 0.02% INH SOLN 0.5 MG/2.5 ML VIAL INHALATION ×4 (01:42→21:00)
[2024-03-29] MEDS: LEVALBUTEROL NEB 1.25 MG/3 ML INHALATION ×4 (01:42→21:00)
[2024-03-29] MEDS: FENTANYL 2,500MCG/NS250ML(*CRX 2,500 MCG/250 ML BAG 15 MCG IV CONT ×2 (04:40→22:00)
[2024-03-29 05:11] LABS: Alveolar/Arterial O2 Gradient 250.6 mmHg; Base Excess ABG 9.7 mEq/l (+/-2.0); Carboxyhemoglobin 0.4 % THb (0-2.0); Fractional Inspired Oxygen 50 %; Methemoglobin ABG 0.3 %THb (0-1.5); Oxygen Content ABG 12.5 %vol (16.0-22.0); Oxygen Saturation ABG 90.7 % (95.0-100.0); Oxyhemoglobin 88.5 % THb (90.0-100.0); PCO2 ABG 45.3 mmHg (35.0-45.0); PO2 ABG 54.9 mmHg (80.0-100.0); Reduced Hemoglobin 10.8 %THb (0-5.0); pH ABG 7.493 (7.350-7.450)
[2024-03-29 05:12] LABS: Modified Allen's Test Pass; Site Drawn LEFT RADIAL
[2024-03-29 05:13] LABS: Arterial Blood Gas PEEP 5 cmH2O; Arterial Blood Gas Tidal Volume 500 ml; Arterial Blood Gas Vent Mode CMV; Arterial Blood Gas Ventilator rate 18 /MIN; Device VENTILATOR
[2024-03-29] MEDS: SALINE LOCK FLUSH 10 ML IV PUSH ×3 (06:26→20:02)
[2024-03-29] MEDS: CENTRAL LINE FLUSH 10 ML IV PUSH ×3 (06:26→20:02)
[2024-03-29] MEDS: LEVOTHYROXINE SODIUM 50 MCG TABLET PO (06:28)
[2024-03-29 06:32] LABS: Basophils Percent Auto 0.5 % (0.2-1.2); Eosinophils Absolute Auto 0.2 K/mm3 (0-0.3); Eosinophils Percent Auto 1.8 % (0-4.4); Hematocrit 30.5 % (42.0-52.0); Hemoglobin 9.1 g/dL (14.0-18.0); Immature Granulocyte Absolute 0.05 K/mm3 (0.00-0.031); Immature Granulocyte Percent A 0.6 % (0-0.5); Lymphocytes Absolute Auto 1.09 K/mm3 (0.9-3.2); Lymphocytes Percent Auto 12.9 % (18.3-44.2); Mean Corpuscular HGB Conc 29.8 g/dl (32-36); Mean Corpuscular Hemoglobin 27.5 pg (26-34); Mean Corpuscular Volume 92.1 fl (80-100); Mean Platelet Volume 9.9 fl (7.4-10.4); Monocytes Absolute Auto 0.9 K/mm3 (0.1-0.6); Monocytes Percent Auto 10.4 % (2.6-8.5); Neutrophils Absolute Auto 6.2 K/mm3 (1.3-6.7); Neutrophils Percent Auto 73.8 % (45.5-73.1); Platelet Count Result 125 k/mm3 (150-375); Red Blood Count 3.31 M/mm3 (4.6-6.20); White Blood Count 8.4 K/mm3 (4.5-10.0)
[2024-03-29 06:39] LABS: Alanine Aminotransferase 12 U/L (6-50); Albumin Level 3.3 g/dL (3.5-5.1); Alkaline Phosphatase 49 U/L (38-126); Anion Gap 9 mmol/L (4-12); Aspartate Amino Transferase 16 U/L (17-59); Blood Urea Nitrogen 54 mg/dL (9-20); Carbon Dioxide 34 mmol/L (22-30); Chloride 93 mmol/L (98-107); Estimated CRCL calculation 36 ml/min; Estimated Glomerular Filt Rate 31; Glucose 136 mg/dL (65-110); Lactic Acid Reflex 1.3 mmol/L (0.7-2.0); Phosphorus 2.8 mg/dL (2.5-4.5); Potassium 4.2 mmol/L (3.4-5.0); Sodium 136 mmol/L (137-145)
[2024-03-29 06:41] LABS: Glucose Point of Care 146 mg/dl (65-105)
[2024-03-29 07:27] LABS: Anisocytosis 1+; Hypochromasia 1+; Ovalocytes 1+; Platelet Estimate Decreased (Adequate); Schistocytes None Seen
[2024-03-29] MEDS: APIXABAN 5 MG TABLET PO (08:51)
[2024-03-29] MEDS: cefTRIAXone 2 GM/NS 100 ML 2 GM/100 ML BAG IVPB (08:51)
[2024-03-29] MEDS: DOXYCYCLINE 100 MG/NS 100 ML 100 MG/100 ML BAG IVPB ×2 (08:51→20:01)
[2024-03-29] MEDS: MINERAL OIL/WHITE PETROLATUM OINTMENT 1 APPLIC EACH EYE ×2 (08:52→20:02)
[2024-03-29] MEDS: PANTOPRAZOLE SODIUM IV 40 MG VIAL IV PUSH (08:52)
[2024-03-29 09:32] LABS: INR 1.1; Prothrombin Time 15.1 Seconds (11.1-14.7)
[2024-03-29 09:34] LABS: Partial Thromboplastin Time 41.1 Seconds (22.3-36.8)
--- NOTE | 2024-03-29 10:44 | P.CONUR_ITS ---
Assessment and Plan Assessment and plan (1) UTI (urinary tract infection): Code(s): N39.0 - Urinary tract infection, site not specified Status: Acute Assessment and Plan: Present on admission. UA suspicious for UTI. 03/28/24 Urine culture pending on broad spectrum abx. (2) Acute worsening of stage 3 chronic kidney disease: Code(s): N18.30 - Chronic kidney disease, stage 3 unspecified Status: Acute (3) Acute urinary retention: Code(s): R33.8 - Other retention of urine Status: Acute Assessment and Plan: Currently managed with indwelling Mccarty (4) Hydronephrosis: Qualifiers: Hydronephrosis type: unspecified Qualified Code(s): N13.30 - Unspecified hydronephrosis Code(s): N13.30 - Unspecified hydronephrosis Status: Acute Assessment and Plan: Mild, bilateral CT negative for stones/obstruction (5) Fecal impaction: Code(s): K56.41 - Fecal impaction Status: Acute Assessment and Plan: Hx chronic constipation, severe at times Plan - UTI, PIPE, acute urinary retention, mild bilateral hydronephrosis likely secondary to 7.5cm rectal stool ball identified on CT imaging - Suspect patient had been experiencing retention issues at the nursing facility prior to admission given he had 1.4L urinary output <2hours after Mccarty placement - Renal function is improving with bladder decompression, Cr 2.09 from 2.67 (baseline 1.5-1.8) - Recommend aggressive bowel regimen to relieve fecal impaction - Continue culture-directed abx for suspected UTI - Maintain indwelling Mccarty catheter properly secured and off tension while recovering in the ICU - Void trial prior to discharge - No plan for inpatient urologic surgical intervention Case discussed with Dr. Jean Baptiste Urology Consult Note HPI Date Seen: 03/29/24 Requesting Physician: Jeannine Pemberton MD Primary Care Provider: [facility] Consult Narrative Reason for consult: Hydroureteronephrosis, UTI, PIPE Narrative: Hans Gaytan is a 74-year-old male who was admitted to the ICU 03/28/24 from a nursing facility for evaluation and management of acute on chronic respiratory failure requiring intubation, shock requiring pressor support, COPD exacerbation, PIPE, UTI. He presented to the ER dyspneic and obtunded. Urology was consulted after renal ultrasound revealed mild right hydronephrosis, right proximal hydroureter. Follow-up CT imaging this morning revealed mild bilateral hydronephrosis, negative for stones, bladder wall thickening suspicious for cystitis, decompressed bladder with Mccarty in place, 7.5cm rectal stool ball. Urinalysis suspicious for UTI. On chart review, indwelling Mccarty was placed in the ER with 400mL urinary output and an additional 1000mL output over the next two hours. Patient does not appear to have much of a urological history. He is not on any prostate or bladder medications at home. Medical history significant for chronic respiratory failure, O2 dependent, CKD III (baseline Cr 1.5-1.8.), morbid obesity (BMI >40), HTN, AFIB on Eliquis, T2DM, former smoker. Patient intubated/sedated on exam in the ICU. Family present. They report slow decline in health following CVA back in 2019 -->sharp decline in the past 2-3 months requiring buttermaker continuous churn care placement. He has had recent issues with severe constipation. They have no known knowledge of previous urology evaluation. PERTINENT LABS: 03/28/24 - WBC 9.6, HGB 10.4, Cr 2.67 Urinalysis - 2+ LE, 1+ blood, 3-5 RBC, >100 WBC Blood and urine cultures pending on broad spectrum antibiotics 03/29/24 - WBC 8.4, HGB 9.1, Cr 2.09 Review of Systems 2 Review of Systems: ROS unobtainable: Yes unobtainable due to endotracheal tube PMFSH Past Medical History Medical History Chronic respiratory failure with hypoxia, on home oxygen therapy Obesity hypoventilation syndrome Osteomyelitis (2019) right foot Hypothyroidism Chronic kidney disease, stage 3 Gastroesophageal reflux disease Obstructive sleep apnea treated with BiPAP Chronic obstructive pulmonary disease Sclerosing mesenteritis Hyperlipidemia Hypertension Deep venous thrombosis Cerebrovascular accident Heart failure with preserved ejection fraction Chronic anticoagulation Type 2 diabetes mellitus Urinary retention Morbid obesity Chronic kidney disease Atrial fibrillation Surgical History Surgical History Status post right foot surgery Family History Family History Father Cancer Mother Chronic obstructive pulmonary disease Cancer Social History Social History Social History: Surrogate medical decision maker: Ayana Gaytan, spouse. Code status: Smoking packs per day: 1 Smoking cigarettes per day: 20.0 Years smoked: 15 Smoking pack-years: 15.00 Smoking status: Never smoker Tobacco type: cigarettes Second hand tobacco smoke exposure: Yes Alcohol intake: never Substance use: never Substance use type: does not use Lack of Transportation: No Lack of Food: Never True Current Housing: I Have Housing Concerned About Future Housing: No Difficulty Paying Gas/Electric Bills: No Difficulty Paying for Meds: No Currently Unemployed: No Education: Decline to Answer Difficulty w/ Childcare or Family Care: No Living arrangements: senior living Additional living arrangements comments: [place] Occupation/Education: retired 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 Spiritual care concerns: No Agree to blood products: Yes Meds Home Medications and Allergies Home Medications ?Medication ?Instructions ?Recorded ?Confirmed ?Type albuterol sulfate 2.5 mg/3 mL 2.5 mg inhalation TID 01/13/23 03/28/24 History (0.083 %) solution for nebulization apixaban 5 mg tablet (Eliquis) 5 mg PO DAILY 01/13/23 03/28/24 History bisacodyl 10 mg rectal suppository 10 mg RECTAL DAILY PRN Constipation 01/13/23 03/28/24 History furosemide 40 mg tablet 40 mg PO DAILY 01/13/23 03/28/24 History levothyroxine 50 mcg tablet 50 mcg PO DAILY 01/13/23 03/28/24 History magnesium citrate (Citroma oral 296 ml PO PRN PRN Constipation 01/13/23 03/28/24 History solution) magnesium hydroxide 400 mg/5 mL 30 ml PO PRN PRN Constipation 01/13/23 03/28/24 History oral suspension (Milk of Magnesia) pantoprazole 40 mg tablet,delayed 40 mg PO DAILY 01/13/23 03/28/24 History release (Protonix) budesonide-formoterol HFA 160 2 puff inhalation BID 03/03/24 03/28/24 History mcg-4.5 mcg/actuation aerosol inhaler carvedilol 12.5 mg tablet 12.5 mg PO BID hypertension 03/03/24 03/28/24 History cholecalciferol (vitamin D3) 1,250 50,000 unit PO WEEKLY 03/03/24 03/28/24 History mcg (50,000 unit) capsule hydrocortisone 10 mg tablet 10 mg PO HS 03/03/24 03/28/24 History insulin aspart U-100 100 unit/mL 5 unit subcut ACHS 03/03/24 03/28/24 History (3 mL) subcutaneous pen metformin 500 mg tablet,extended 500 mg PO DAILY 03/03/24 03/28/24 History release 24 hr empagliflozin 10 mg tablet 5 mg (1/2 x 10 mg) PO DAILY #30 03/07/24 03/28/24 Rx (Jardiance) tabs Saccharomyces boulardii 250 mg 250 mg PO BID 03/28/24 03/28/24 History capsule (Daily Probiotic (S. boulardii)) cholecalciferol (vitamin D3) 125 250 mcg PO WEEKLY 03/28/24 03/28/24 History mcg (5,000 unit) tablet meropenem 1 gram intravenous 1 g IV Q12H 03/28/24 03/28/24 History solution multivitamin 1 tablet PO DAILY 03/28/24 03/28/24 History ondansetron 4 mg disintegrating 4 mg PO Q8H PRN nausea and vomiting 03/28/24 03/28/24 History tablet Allergies Allergy/AdvReac Type Severity Reaction Status Date / Time lisinopril Allergy Unknown Verified 03/28/24 16:52 Vital Signs Vital Signs - 24 hr 03/28/24 10:45 03/28/24 10:57 03/28/24 11:00 Temperature Pulse Rate 100 90 84 Respiratory Rate 24 H Blood Pressure 70/59 L Pulse Oximetry 100 99 99 Oxygen Delivery Mechanical Ventilation Mechanical Ventilation Fraction of Inspired Oxygen 75 75 03/28/24 11:02 03/28/24 11:09 03/28/24 11:10 Temperature Pulse Rate 79 91 95 Respiratory Rate 22 H Blood Pressure 77/29 L 99/71 L Pulse Oximetry 100 Oxygen Delivery Fraction of Inspired Oxygen 03/28/24 11:15 03/28/24 11:29 03/28/24 11:40 Temperature Pulse Rate 99 108 H 108 H Respiratory Rate 22 H 24 H 24 H Blood Pressure 111/81 Pulse Oximetry 98 Oxygen Delivery Fraction of Inspired Oxygen 03/28/24 12:45 03/28/24 12:47 03/28/24 12:48 Temperature Pulse Rate 109 H 109 H 111 H Respiratory Rate 22 H 22 H Blood Pressure Pulse Oximetry 98 Oxygen Delivery Mechanical Ventilation Fraction of Inspired Oxygen 50 03/28/24 12:55 03/28/24 13:24 03/28/24 14:00 Temperature Pulse Rate 119 H 120 H Respiratory Rate 22 H Blood Pressure 120/71 Pulse Oximetry 100 Oxygen Delivery Mechanical Ventilation Fraction of Inspired Oxygen 50 03/28/24 14:00 03/28/24 14:06 03/28/24 14:21 Temperature Pulse Rate 120 H 119 H 101 H Respiratory Rate 18 18 Blood Pressure 145/84 H Pulse Oximetry 99 99 Oxygen Delivery Mechanical Ventilation Fraction of Inspired Oxygen 50 03/28/24 14:25 03/28/24 14:32 03/28/24 14:37 Temperature Pulse Rate 109 H 102 H 106 H Respiratory Rate 18 18 Blood Pressure 125/77 Pulse Oximetry Oxygen Delivery Fraction of Inspired Oxygen 03/28/24 15:01 03/28/24 16:00 03/28/24 16:00 Temperature 97.4 F L Pulse Rate 111 H 100 100 Respiratory Rate 18 18 Blood Pressure 127/80 Pulse Oximetry 100 Oxygen Delivery Fraction of Inspired Oxygen 03/28/24 16:00 03/28/24 16:00 03/28/24 16:00 Temperature Pulse Rate 100 100 Respiratory Rate 18 18 Blood Pressure Pulse Oximetry Oxygen Delivery Fraction of Inspired Oxygen 45 03/28/24 16:01 03/28/24 16:54 03/28/24 17:03 Temperature Pulse Rate 100 111 H 99 Respiratory Rate Blood Pressure 127/80 126/84 Pulse Oximetry 99 Oxygen Delivery Mechanical Ventilation Fraction of Inspired Oxygen 40 03/28/24 17:49 03/28/24 17:50 03/28/24 17:50 Temperature Pulse Rate 99 102 H 107 H Respiratory Rate 18 18 Blood Pressure 85/46 L Pulse Oximetry Oxygen Delivery Fraction of Inspired Oxygen 03/28/24 18:43 03/28/24 19:32 03/28/24 19:32 Temperature Pulse Rate 105 H 119 H 119 H Respiratory Rate 18 Blood Pressure 144/84 H Pulse Oximetry 94 Oxygen Delivery Mechanical Ventilation Fraction of Inspired Oxygen 45 03/28/24 20:00 03/28/24 20:00 03/28/24 20:00 Temperature Pulse Rate 115 H 115 H 115 H Respiratory Rate 21 H 21 H Blood Pressure 122/111 H Pulse Oximetry 89 L 89 L Oxygen Delivery Mechanical Ventilation Fraction of Inspired Oxygen 40 03/28/24 20:00 03/28/24 20:00 03/28/24 20:00 Temperature Pulse Rate 122 H 122 H Respiratory Rate 18 18 Blood Pressure Pulse Oximetry Oxygen Delivery Fraction of Inspired Oxygen 100 03/28/24 20:00 03/28/24 20:01 03/28/24 22:00 Temperature Pulse Rate 122 H 113 H 111 H Respiratory Rate 18 Blood Pressure 122/111 H Pulse Oximetry Oxygen Delivery Fraction of Inspired Oxygen 03/28/24 22:00 03/28/24 22:00 03/28/24 22:05 Temperature 97.8 F Pulse Rate 122 H 122 H 117 H Respiratory Rate 18 24 H Blood Pressure 131/91 H 131/91 H Pulse Oximetry 91 Oxygen Delivery Fraction of Inspired Oxygen 03/28/24 22:32 03/28/24 22:37 03/29/24 00:00 Temperature 98.4 F Pulse Rate 117 H 122 H 117 H Respiratory Rate 18 18 Blood Pressure 117/82 Pulse Oximetry 94 92 Oxygen Delivery Mechanical Ventilation Fraction of Inspired Oxygen 45 03/29/24 00:00 03/29/24 00:00 03/29/24 00:00 Temperature Pulse Rate 117 H 117 H 117 H Respiratory Rate 18 18 Blood Pressure 117/81 Pulse Oximetry Oxygen Delivery Fraction of Inspired Oxygen 03/29/24 00:00 03/29/24 00:00 03/29/24 00:00 Temperature Pulse Rate 132 H Respiratory Rate Blood Pressure Pulse Oximetry Oxygen Delivery Mechanical Ventilation Fraction of Inspired Oxygen 45 45 03/29/24 00:30 03/29/24 00:30 03/29/24 00:30 Temperature Pulse Rate 118 H 118 H 118 H Respiratory Rate 18 18 Blood Pressure 127/106 H Pulse Oximetry Oxygen Delivery Fraction of Inspired Oxygen 03/29/24 00:35 03/29/24 00:40 03/29/24 00:45 Temperature Pulse Rate 116 H 119 H 123 H Respiratory Rate Blood Pressure 133/102 H 176/162 H 143/132 H Pulse Oximetry Oxygen Delivery Fraction of Inspired Oxygen 03/29/24 01:20 03/29/24 01:35 03/29/24 01:42 Temperature Pulse Rate 101 H 100 106 H Respiratory Rate Blood Pressure 75/41 L 119/90 Pulse Oximetry 93 Oxygen Delivery Mechanical Ventilation Fraction of Inspired Oxygen 45 03/29/24 01:42 03/29/24 01:45 03/29/24 02:00 Temperature Pulse Rate 106 H 103 H 105 H Respiratory Rate 18 18 Blood Pressure 145/102 H Pulse Oximetry Oxygen Delivery Fraction of Inspired Oxygen 03/29/24 02:00 03/29/24 02:00 03/29/24 02:00 Temperature Pulse Rate 105 H 105 H 105 H Respiratory Rate 18 Blood Pressure 154/95 H Pulse Oximetry Oxygen Delivery Fraction of Inspired Oxygen 03/29/24 02:00 03/29/24 02:01 03/29/24 02:15 Temperature Pulse Rate 102 H 105 H 102 H Respiratory Rate 18 18 18 Blood Pressure 154/95 H Pulse Oximetry 89 L 88 L Oxygen Delivery Fraction of Inspired Oxygen 03/29/24 02:15 03/29/24 02:30 03/29/24 02:45 Temperature Pulse Rate 107 H 110 H 113 H Respiratory Rate Blood Pressure 134/83 126/77 117/77 Pulse Oximetry Oxygen Delivery Fraction of Inspired Oxygen 03/29/24 03:47 03/29/24 03:47 03/29/24 04:00 Temperature 99.6 F Pulse Rate Respiratory Rate Blood Pressure Pulse Oximetry Oxygen Delivery Mechanical Ventilation Fraction of Inspired Oxygen 50 50 03/29/24 04:00 03/29/24 04:00 03/29/24 04:00 Temperature Pulse Rate 100 100 100 Respiratory Rate 18 18 Blood Pressure 94/49 L Pulse Oximetry Oxygen Delivery Fraction of Inspired Oxygen 03/29/24 04:00 03/29/24 04:01 03/29/24 04:17 Temperature Pulse Rate 97 100 106 H Respiratory Rate 18 18 Blood Pressure 94/49 L 104/62 Pulse Oximetry 97 97 Oxygen Delivery Fraction of Inspired Oxygen 03/29/24 04:40 03/29/24 05:05 03/29/24 06:00 Temperature Pulse Rate 102 H 97 98 Respiratory Rate 18 18 Blood Pressure Pulse Oximetry 94 Oxygen Delivery Mechanical Ventilation Fraction of Inspired Oxygen 50 03/29/24 06:00 03/29/24 06:00 03/29/24 06:00 Temperature Pulse Rate 98 98 98 Respiratory Rate 18 Blood Pressure 98/56 L Pulse Oximetry Oxygen Delivery Fraction of Inspired Oxygen 03/29/24 06:01 03/29/24 06:15 03/29/24 06:16 Temperature Pulse Rate 99 95 90 Respiratory Rate 18 18 20 Blood Pressure 98/56 L 101/69 Pulse Oximetry 98 97 97 Oxygen Delivery Fraction of Inspired Oxygen 03/29/24 08:00 03/29/24 08:00 03/29/24 08:00 Temperature 97.4 F L Pulse Rate 92 Respiratory Rate 20 Blood Pressure 98/73 L Pulse Oximetry 97 Oxygen Delivery Mechanical Ventilation Fraction of Inspired Oxygen 50 50 03/29/24 08:35 03/29/24 08:38 03/29/24 08:44 Temperature Pulse Rate 95 101 H 86 Respiratory Rate 18 18 Blood Pressure Pulse Oximetry 92 Oxygen Delivery Mechanical Ventilation Fraction of Inspired Oxygen 50 03/29/24 10:00 Temperature Pulse Rate 89 Respiratory Rate 18 Blood Pressure 128/76 Pulse Oximetry 95 Oxygen Delivery Fraction of Inspired Oxygen Exam 2 Const: Other: Intubated/sedated Urinary Catheter: Urinary Catheter: patent and draining and urine clear (yellow) Results Labs 03/29/24 06:14 03/29/24 06:14 Labs: Short CBC 03/29/24 Range/Units 06:14 WBC 8.4 (4.5-10.0) K/mm3 Hgb 9.1 L (14.0-18.0) g/dL Hct 30.5 L (42.0-52.0) % Plt Count 125 L (150-375) k/mm3 BMP 03/28/24 03/29/24 17:17 06:14 Sodium 134 L 136 L Potassium 4.1 4.2 Chloride 92 L 93 L Carbon Dioxide 36 H 34 H BUN 58 H 54 H Creatinine 2.26 H 2.09 H Glucose 115 H 136 H Calcium 8.7 9.0 Cardiac Enzymes 03/28/24 03/28/24 Range/Units 14:40 14:40 Total Creatine Kinase 61 Cancelled (55-170) U/L Troponin I 0.122 H* D (0.000-0.034) ng/mL Liver Function 03/29/24 Range/Units 06:14 Total Bilirubin 1.0 (0.2-1.3) mg/dL AST 16 L (17-59) U/L ALT 12 (6-50) U/L Alkaline Phosphatase 49 (38-126) U/L Albumin 3.3 L (3.5-5.1) g/dL Urine 03/28/24 Range/Units 10:12 Urine Color Yellow (Yellow) Urine Appearance Cloudy H (Clear) Urine pH 7.0 (5.0-9.0) Ur Specific [place] 1.011 (1.001-1.035) Urine Protein 2+ H (Negative) mg/dL Urine Glucose (UA) 2+ H (Negative) mg/dL
--- NOTE | 2024-03-29 11:24 | P.PNINT_ITS ---
Progress Note: A&P Assessment and Plan (1) Acute respiratory failure with hypercapnia: Code(s): J96.02 - Acute respiratory failure with hypercapnia Status: Acute Assessment and Plan: 01/25:Patient presented with respiratory distress, shortness of breath, altered mental status -initial ABG showed pH of 7.19 and pCO2 of 117, patient was obtunded, BiPAP was not an option due to altered mental status so that patient was intubated in the ER -etiology: COPD exacerbation, hypercapnic respiratory failure, pneumonia, obesity hypoventilation syndrome, obstructive sleep apnea may also be playing a role -ccontinue n CMV mode of ventilation, peep of 5, 50% FiO2, will increase PEEP to 8 -chest x-ray and repeat ABGs reviewed, ventilator adjusted -contain Xopenex and Atrovent nebs -sedated with fentanyl and Versed infusion, maintain RASS of 0 to -2, daily SBT and SAT, asked the bedside RN to trend down the sedation and wake the patient up so we can place him on SBT and SAT. - RSV, COVID and influenza are negative (2) Shock: Code(s): R57.9 - Shock, unspecified Status: Acute Assessment and Plan: Patient presented with hypotension, anemia related to sepsis/infection/hypovolemia, UTI -patient given 2 L IV fluid bolus in the ER -03/28: left-sided PICC line was inserted in the ER -off Levophed, continue maintain MAP > 65 mmHg wall show adequate end organ perfusion -urine output has been good, improving creatinine, - monitor urine output and renal function -continue ceftriaxone, add vancomycin and doxycycline (03/28) -03/28: blood and urine cultures have been obtained. Will order sputum culture (3) Acute worsening of stage 3 chronic kidney disease: Code(s): N18.30 - Chronic kidney disease, stage 3 unspecified Status: Acute Assessment and Plan: Patient has history of chronic kidney disease stage 3 (baseline creatinine seems to be 1.4-1.8). Likely related to hypotension from shock, infection, UTI, hypovolemia -patient presented with a creatinine of 2.67 this admission -adequately fluid-resuscitated negative blood cultures 03/29/2024 only -status post IV fluids -used albumin for additional intravascular volume repletion -continue to monitor urine output, renal function electrolytes (4) Atrial fibrillation: Qualifiers: Atrial fibrillation type: unspecified Qualified Code(s): I48.91 - Unspecified atrial fibrillation Code(s): I48.91 - Unspecified atrial fibrillation Status: Chronic Assessment and Plan: Patient has a history of atrial fibrillation on Eliquis and the nursing -currently was in AFib with rates in the 90s to 100s -continue Eliquis (5) Chronic obstructive pulmonary disease: Code(s): J44.9 - Chronic obstructive pulmonary disease, unspecified Status: Acute Assessment and Plan: History of COPD, on 4 L home oxygen -continue antibiotics, bronchodilator -will hold steroids as patient does not have any wheezing (6) Diabetes mellitus: Code(s): E11.9 - Type 2 diabetes mellitus without complications Status: Chronic Assessment and Plan: Accu-Cheks and sliding scale insulin (7) Heart failure with preserved ejection fraction: Code(s): I50.30 - Unspecified diastolic (congestive) heart failure Status: Acute Assessment and Plan: ProBNP was 9230 -troponin was 0.042, 0.122 -chest x-ray does not look fluid volume overloaded -continue to monitor -check echocardiogram (8) Hypothyroidism: Code(s): E03.9 - Hypothyroidism, unspecified Status: Acute Assessment and Plan: Will restart home levothyroxine (9) Urinary tract infection: Code(s): N39.0 - Urinary tract infection, site not specified Status: Acute Assessment and Plan: UA was reflective of UTI, -Continue antibiotics as above, urine cultures have been obtained Plan DVT prophylaxis: Eliquis Stress ulcer prophylaxis: Protonix Nutrition: Continue tube feeds. Code Status: Full code Critical Care Time Spent: 33 minutes Discuss with family at bedside updated them with patient's condition plan of care. I answered all the question Due to a high probability of clinically significant, life threatening deterioration, the patient required my highest level of preparedness to intervene emergently and I personally spent this critical care time directly and personally managing the patient. This critical care time included obtaining a history; examining the patient; pulse oximetry; ordering and review of studies; arranging urgent treatment with development of a management plan; evaluation of patient's response to treatment; frequent reassessment; and discussions with other providers. It was exclusive of separately billable procedures and treating other patients and teaching time. Please see Assessment and Plan section and the rest of the note for further information on patient assessment and treatment This dictation may have been done utilizing a voice recognition system. Attempts have been made to correct errors. However, there may be uncorrected grammatical, spelling, and recognitions errors present. Subjective Date/time seen: 03/29/24 11:24 Interval history: Reason for consult: Acute hypercapnic respiratory failure, encephalopathy, hypotensive, shock, pneumonia, UTI, acute on chronic kidney disease 01/26/2025: Patient seen and examined the ICU remains intubated on CMV mode of ventilation, peep of 5, 50% FiO2. Sedated with fentanyl and Versed infusion, does not open his eyes or follow simple commands. With good urine output, creatinine improving. Off Levophed, hemodynamically stable. Lactic acid is normal Review of Systems Review of Systems: ROS unobtainable: Yes unobtainable due to endotracheal tube, unobtainable due to medical condition and unobtainable due to mental sta tus Exam Narrative: General: Patient intubated, sedated, in no acute distress HEENT:? Pupils are pinpoint but equal and reactive, sclerae ischemia, ETT in place Neck:? Supple, thick neck Respiratory:? Coarse breath sounds bilaterally, decreased at bases, no wheezing, adequate air entry Cardiac:? Irregularly irregular, tachycardia Abdomen:? Says soft, nontender, nondistended, morbidly obese, hypoactive bowel sound Extremities:? Trace bilateral lower extremity edema, pitting edema on dorsum of the feet bilaterally. Palpable pedal pulses Neuro:? Patient is intubated, sedated, does not open his eyes or follow simple commands. Does withdraw to pain Skin:? Left big toe nail seems to have, off with residual clot Psych:? Unable to assess at this time Objective Data Vital Signs Vital Signs: Vital Signs - 24 hr 03/28/24 11:29 03/28/24 11:40 03/28/24 12:45 Temperature Pulse Rate 108 H 108 H 109 H Respiratory Rate 24 H 24 H 22 H Blood Pressure 111/81 Pulse Oximetry 98 Oxygen Delivery Fraction of Inspired Oxygen 03/28/24 12:47 03/28/24 12:48 03/28/24 12:55 Temperature Pulse Rate 109 H 111 H 119 H Respiratory Rate 22 H 22 H Blood Pressure 120/71 Pulse Oximetry 98 100 Oxygen Delivery Mechanical Ventilation Fraction of Inspired Oxygen 50 03/28/24 13:24 03/28/24 14:00 03/28/24 14:00 Temperature Pulse Rate 120 H 120 H Respiratory Rate 18 Blood Pressure 145/84 H Pulse Oximetry 99 Oxygen Delivery Mechanical Ventilation Fraction of Inspired Oxygen 50 03/28/24 14:06 03/28/24 14:21 03/28/24 14:25 Temperature Pulse Rate 119 H 101 H 109 H Respiratory Rate 18 18 Blood Pressure Pulse Oximetry 99 Oxygen Delivery Mechanical Ventilation Fraction of Inspired Oxygen 50 03/28/24 14:32 03/28/24 14:37 03/28/24 15:01 Temperature Pulse Rate 102 H 106 H 111 H Respiratory Rate 18 18 Blood Pressure 125/77 Pulse Oximetry Oxygen Delivery Fraction of Inspired Oxygen 03/28/24 16:00 03/28/24 16:00 03/28/24 16:00 Temperature 97.4 F L Pulse Rate 100 100 100 Respiratory Rate 18 18 Blood Pressure 127/80 Pulse Oximetry 100 Oxygen Delivery Fraction of Inspired Oxygen 03/28/24 16:00 03/28/24 16:00 03/28/24 16:01 Temperature Pulse Rate 100 100 Respiratory Rate 18 Blood Pressure 127/80 Pulse Oximetry Oxygen Delivery Fraction of Inspired Oxygen 45 03/28/24 16:54 03/28/24 17:03 03/28/24 17:49 Temperature Pulse Rate 111 H 99 99 Respiratory Rate 18 Blood Pressure 126/84 Pulse Oximetry 99 Oxygen Delivery Mechanical Ventilation Fraction of Inspired Oxygen 40 03/28/24 17:50 03/28/24 17:50 03/28/24 18:43 Temperature Pulse Rate 102 H 107 H 105 H Respiratory Rate 18 Blood Pressure 85/46 L 144/84 H Pulse Oximetry Oxygen Delivery Fraction of Inspired Oxygen 03/28/24 19:32 03/28/24 19:32 03/28/24 20:00 Temperature Pulse Rate 119 H 119 H 115 H Respiratory Rate 18 21 H Blood Pressure Pulse Oximetry 94 89 L Oxygen Delivery Mechanical Ventilation Mechanical Ventilation Fraction of Inspired Oxygen 45 40 03/28/24 20:00 03/28/24 20:00 03/28/24 20:00 Temperature Pulse Rate 115 H 115 H Respiratory Rate 21 H Blood Pressure 122/111 H Pulse Oximetry 89 L Oxygen Delivery Fraction of Inspired Oxygen 100 03/28/24 20:00 03/28/24 20:00 03/28/24 20:00 Temperature Pulse Rate 122 H 122 H 122 H Respiratory Rate 18 18 Blood Pressure 122/111 H Pulse Oximetry Oxygen Delivery Fraction of Inspired Oxygen 03/28/24 20:01 03/28/24 22:00 03/28/24 22:00 Temperature Pulse Rate 113 H 111 H 122 H Respiratory Rate 18 18 Blood Pressure Pulse Oximetry Oxygen Delivery Fraction of Inspired Oxygen 03/28/24 22:00 03/28/24 22:05 03/28/24 22:32 Temperature 97.8 F Pulse Rate 122 H 117 H 117 H Respiratory Rate 24 H Blood Pressure 131/91 H 131/91 H Pulse Oximetry 91 94 Oxygen Delivery Mechanical Ventilation Fraction of Inspired Oxygen 45 03/28/24 22:37 03/29/24 00:00 03/29/24 00:00 Temperature 98.4 F Pulse Rate 122 H 117 H 117 H Respiratory Rate 18 18 18 Blood Pressure 117/82 Pulse Oximetry 92 Oxygen Delivery Fraction of Inspired Oxygen 03/29/24 00:00 03/29/24 00:00 03/29/24 00:00 Temperature Pulse Rate 117 H 117 H Respiratory Rate 18 Blood Pressure 117/81 Pulse Oximetry Oxygen Delivery Fraction of Inspired Oxygen 45 03/29/24 00:00 03/29/24 00:00 03/29/24 00:30 Temperature Pulse Rate 132 H 118 H Respiratory Rate Blood Pressure 127/106 H Pulse Oximetry Oxygen Delivery Mechanical Ventilation Fraction of Inspired Oxygen 45 03/29/24 00:30 03/29/24 00:30 03/29/24 00:35 Temperature Pulse Rate 118 H 118 H 116 H Respiratory Rate 18 18 Blood Pressure 133/102 H Pulse Oximetry Oxygen Delivery Fraction of Inspired Oxygen 03/29/24 00:40 03/29/24 00:45 03/29/24 01:20 Temperature Pulse Rate 119 H 123 H 101 H Respiratory Rate Blood Pressure 176/162 H 143/132 H 75/41 L Pulse Oximetry Oxygen Delivery Fraction of Inspired Oxygen 03/29/24 01:35 03/29/24 01:42 03/29/24 01:42 Temperature Pulse Rate 100 106 H 106 H Respiratory Rate 18 Blood Pressure 119/90 Pulse Oximetry 93 Oxygen Delivery Mechanical Ventilation Fraction of Inspired Oxygen 45 03/29/24 01:45 03/29/24 02:00 03/29/24 02:00 Temperature Pulse Rate 103 H 105 H 105 H Respiratory Rate 18 18 Blood Pressure 145/102 H Pulse Oximetry Oxygen Delivery Fraction of Inspired Oxygen 03/29/24 02:00 03/29/24 02:00 03/29/24 02:00 Temperature Pulse Rate 105 H 105 H 102 H Respiratory Rate 18 Blood Pressure 154/95 H Pulse Oximetry 89 L Oxygen Delivery Fraction of Inspired Oxygen 03/29/24 02:01 03/29/24 02:15 03/29/24 02:15 Temperature Pulse Rate 105 H 102 H 107 H Respiratory Rate 18 18 Blood Pressure 154/95 H 134/83 Pulse Oximetry 88 L Oxygen Delivery Fraction of Inspired Oxygen 03/29/24 02:30 03/29/24 02:45 03/29/24 03:47 Temperature 99.6 F Pulse Rate 110 H 113 H Respiratory Rate Blood Pressure 126/77 117/77 Pulse Oximetry Oxygen Delivery Fraction of Inspired Oxygen 03/29/24 03:47 03/29/24 04:00 03/29/24 04:00 Temperature Pulse Rate 100 Respiratory Rate 18 Blood Pressure Pulse Oximetry Oxygen Delivery Mechanical Ventilation Fraction of Inspired Oxygen 50 50 03/29/24 04:00 03/29/24 04:00 03/29/24 04:00 Temperature Pulse Rate 100 100 97 Respiratory Rate 18 Blood Pressure 94/49 L Pulse Oximetry Oxygen Delivery Fraction of Inspired Oxygen 03/29/24 04:01 03/29/24 04:17 03/29/24 04:40 Temperature Pulse Rate 100 106 H 102 H Respiratory Rate 18 18 18 Blood Pressure 94/49 L 104/62 Pulse Oximetry 97 97 Oxygen Delivery Fraction of Inspired Oxygen 03/29/24 05:05 03/29/24 06:00 03/29/24 06:00 Temperature Pulse Rate 97 98 98 Respiratory Rate 18 Blood Pressure 98/56 L Pulse Oximetry 94 Oxygen Delivery Mechanical Ventilation Fraction of Inspired Oxygen 50 03/29/24 06:00 03/29/24 06:00 03/29/24 06:01 Temperature Pulse Rate 98 98 99 Respiratory Rate 18 18 Blood Pressure 98/56 L Pulse Oximetry 98 Oxygen Delivery Fraction of Inspired Oxygen 03/29/24 06:15 03/29/24 06:16 03/29/24 08:00 Temperature 97.4 F L Pulse Rate 95 90 92 Respiratory Rate 18 20 20 Blood Pressure 101/69 98/73 L Pulse Oximetry 97 97 97 Oxygen Delivery Fraction of Inspired Oxygen 03/29/24 08:00 03/29/24 08:00 03/29/24 08:35 Temperature Pulse Rate 95 Respiratory Rate 18 Blood Pressure Pulse Oximetry Oxygen Delivery Mechanical Ventilation Fraction of Inspired Oxygen 50 50 03/29/24 08:38 03/29/24 08:44 03/29/24 10:00 Temperature Pulse Rate 101 H 86 89 Respiratory Rate 18 18 Blood Pressure 128/76 Pulse Oximetry 92 95 Oxygen Delivery Mechanical Ventilation Fraction of Inspired Oxygen 50 03/29/24 11:08 Temperature Pulse Rate 77 Respiratory Rate Blood Pressure Pulse Oximetry 95 Oxygen Delivery Mechanical Ventilation Fraction of Inspired Oxygen 50 Intake/Output Intake/Output: Intake & Output 03/26/24 03/27/24 03/28/24 03/29/24 23:59 23:59 23:59 23:59 Intake Total 2755.1 492.4 Output Total 2250 1450 Balance 505.1 -957.6 Meds/Results Medications: Active Medications Generic Name Dose Route Start Last Admin Trade Name Freq PRN Reason Stop Dose Admin Apixaban 5 mg 03/29/24 09:00 03/29/24 08:51 Apixaban 5 Mg Tablet PO 5 mg DAILY LAURA Administration Bisacodyl 10 mg 03/28/24 19:00 Bisacodyl 10 Mg Suppository RECTAL DAILY PRN Constipation Dextrose 12.5 gm 03/28/24 13:45 Dextrose 50% 25 Gm/50 Ml Syringe IV PUSH PRN PRN Hypoglycemia Protocol Glucagon 1 mg 03/28/24 13:45 Glucagon For Inj 1 Mg Vial IM PRN PRN Hypoglycemia Protocol Glucose 15 gm 03/28/24 13:45 Glucose Oral Gel 15 Gm Of Glucse In 37.5 Gm Tube PO PRN PRN Hypoglycemia Protocol Dextrose 1,000 mls @ 100 mls/hr 03/28/24 13:45 Dextrose 5% 1,000 Ml IVPB PRN PRN Hypoglycemia Protocol Ceftriaxone Sodium 2 gm in 100 mls @ 200 mls/hr 03/29/24 09:00 03/29/24 09:21 Rocephin 2 Gm/Ns 100 Ml IVPB Infused Q24H LAURA Infusion Doxycycline Hyclate 100 mg in 100 mls @ 100 mls/hr 03/28/24 13:50 03/29/24 09:51 Vibramycin 100 Mg/Ns 100 Ml IVPB Infused Q12HR LAURA Infusion Midazolam HCl 100 mg in 100 mls @ 4 mls/hr 03/28/24 13:55 03/29/24 06:00 Versed 100 Mg/Ns 100 Ml IV CONT 4 mg/hr .Q25H LAURA 4 mls/hr Titration Protocol 4 MG/HR Fentanyl Citrate 2,500 mcg in 250 mls @ 2.5 mls/hr 03/29/24 04:30 03/29/24 06:00 Fentanyl 2,500 Mcg/Ns 250 Ml IV CONT 150 mcg/hr .Q72H LAURA 15 mls/hr Titration Protocol 25 MCG/HR Insulin Aspart 3 - 6 units 03/28/24 18:00 03/29/24 06:26 Insulin Aspart (*Bkc) 100 Units/Ml SUB-Q Not Given Q6HR LAURA Protocol Ipratropium [place] 0.5 mg 03/28/24 14:00 03/29/24 08:34 Ipratropium Br 0.02% Inh Soln 0.5 Mg/2.5 Ml Vial INHALATION 0.5 mg Q6HRT LAURA Administration Levalbuterol HCl 1.25 mg 03/28/24 14:00 03/29/24 08:35 Levalbuterol Neb 1.25 Mg/3 Ml INHALATION 1.25 mg Q6HRT LAURA Administration Levothyroxine Sodium 50 mcg 03/29/24 06:30 03/29/24 06:28 Levothyroxine Sodium 50 Mcg Tablet PO 50 mcg DAILY@0630 LAURA Administration Multi-Ingred Cream/Lotion/Oil/Oint 1 applic 03/28/24 21:00 03/29/24 08:52 Mineral Oil/White Petrolatum Ointment EACH EYE 1 applic Q12HR LAURA Administration Pantoprazole Sodium 40 mg 03/29/24 09:00 03/29/24 08:52 Pantoprazole Sodium Iv 40 Mg Vial IV PUSH 40 mg QAM LAURA Administration Perflutren Lipid Microsphere 0 ml 03/28/24 14:34 Perflutren Lipid Microspheres 1.5 Ml Vial Diluted To 10 Ml Total Volume IV PUSH 03/31/24 14:34 ONCE PRN adequate visualization Protocol Sodium Chloride 10 ml 03/28/24 14:00 03/29/24 06:26 Saline Lock Flush IV PUSH 10 ml Q8HR LAURA Administration Sodium Chloride 10 ml 03/28/24 14:00 03/29/24 06:26 Central Line Flush IV PUSH 10 ml Q8HR LAURA Administration Sodium Chloride 10 ml 03/28/24 12:56 Central Line Flush IV PUSH PRN PRN with TPN bag changes Sodium Chloride 20 ml 03/28/24 12:56 Central Line Flush IV PUSH PRN PRN after blood draws Vancomycin HCl 1 each 03/28/24 14:45 Vancomycin For Acute Kidney Injury IVPB PRN PRN Vancomycin Protocol Radiology Results: ITS Impressions Abdomen X-Ray 03/28/24 10:10 IMPRESSION: 1. Nasogastric tube tip in the stomach. Head CT 03/28/24 10:49 Impression: No intracranial hemorrhage, mass, or acute infarct. Atrophy and chronic white matter changes, as above. Renal Ultrasound 03/28/24 15:15 IMPRESSION: 1. Mild right hydronephrosis. The previously seen stones in the right renal collecting system are no longer visualized patient concern for progression into the ureter with secondary obstruction. The stones were visible on the prior CT but not on intervening upper GI study performed on 03/04/2024 suggesting may be difficult to identify by a radiolucent would consider renal stone CT for further evaluation. Chest X-Ray 03/29/24 06:27 IMPRESSION: 1. Airspace opacities in right mid and lower lung zones and all left lung zones, left worse than right worse than the left, consistent with atelectasis versus pneumonia. 2. Cardiomegaly. 3. PICC tip folded on itself in the right brachiocephalic vein. Abdomen/Pelvis CT 03/29/24 09:39 IMPRESSION: 1. Mild bilateral hydronephrosis without evident urolithiasis. This is likely related to the wall thickening in the decompressed bladder itself likely related to cystitis. 2. Consolidation at the bilateral lower lungs suspicious for combination of atelectasis and pneumonia. 3. Persistent 7.5 cm ball of stool at the rectum with mild wall thickening and minimal perirectal stranding which can be seen with constipation/fecal impaction and secondary stercoral colitis. Labs Labs: Laboratory Results - last 24 hr 03/28/24 03/28/24 03/28/24 10:12 11:39 14:03 WBC RBC Hgb Hct MCV MCH MCHC RDW Plt Count MPV Immature Gran % (Auto) Neut % (Auto) Lymph % (Auto) [place] % (Auto) Eos % (Auto) Baso % (Auto) Lymph # (Auto) [place] # (Auto) Eos # (Auto) Baso # (Auto) Abs Immat Gran (auto) Absolute Neuts (auto) Absolute Nucleated RBC Nucleated RBC % Platelet Estimate Hypochromasia Anisocytosis Ovalocytes Schistocytes PT INR APTT Puncture Site ABG pH ABG pCO2 ABG pO2 ABG PO2/FiO2 Ratio ABG HCO3 ABG O2 Saturation ABG O2 Content ABG Base Excess A-a Gradient Oxyhemoglobin Carboxyhemoglobin Methemoglobin Reduced Hemoglobin Total Hemoglobin O2 Delivery Device O2 Liters/Min Minute Volume Vent Rate Vent Mode FiO2 Tidal Volume PEEP Peak Inspir Pressure Pressure Support Sodium Potassium Chloride Carbon Dioxide Anion Gap BUN Creatinine Estim Creat Clear Calc Estimated GFR Glucose POC Capillary Glucose Lactic Acid 2.0 Calcium Phosphorus Magnesium Total Bilirubin AST ALT Alkaline Phosphatase Total Creatine Kinase Troponin I Total Protein Albumin TSH Urine Color Yellow Urine Appearance Cloudy H Urine pH 7.0 Ur Specific [place] 1.011 Urine Protein 2+ H Urine Glucose (UA) 2+ H Urine Ketones Negative Ur Blood (Man) 1+ H Urine Nitrate Negative Urine Bilirubin Negative Urine Urobilinogen 0.2 Add Ur Microanalysis Reviewed Leukocyte Esterase Rfl 2+ H Urine RBC 3-5 H Urine WBC >100 H Urine WBC Clumps Present H Ur Squamous Epith Cells None seen Urine Bacteria None seen Urine Casts 11-20 Hyaline Casts Present Urine Eosinophils Ur Random Sodium Ur Random Potassium Urine Creatinine Nasal MRSA (PCR) Detected A* 03/28/24 03/28/24 03/28/24 14:20 14:40 14:40 WBC RBC Hgb Hct MCV MCH MCHC RDW Plt Count MPV Immature Gran % (Auto) Neut % (Auto) Lymph % (Auto) [place] % (Auto) Eos % (Auto) Baso % (Auto) Lymph # (Auto) [place] # (Auto) Eos # (Auto) Baso # (Auto) Abs Immat Gran (auto) Absolute Neuts (auto) Absolute Nucleated RBC Nucleated RBC % Platelet Estimate Hypochromasia Anisocytosis Ovalocytes Schistocytes PT INR APTT Puncture Site ABG pH ABG pCO2 ABG pO2 ABG PO2/FiO2 Ratio ABG HCO3 ABG O2 Saturation ABG O2 Content ABG Base Excess A-a Gradient Oxyhemoglobin Carboxyhemoglobin Methemoglobin Reduced Hemoglobin Total Hemoglobin O2 Delivery Device O2 Liters/Min Minute Volume Vent Rate Vent Mode FiO2 Tidal Volume PEEP Peak Inspir Pressure Pressure Support Sodium Potassium Chloride Carbon Dioxide Anion Gap BUN Creatinine Estim Creat Clear Calc Estimated GFR Glucose POC Capillary Glucose 161 H Lactic Acid Calcium Phosphorus Magnesium Total Bilirubin AST ALT Alkaline Phosphatase Total Creatine Kinase 61 Cancelled Troponin I 0.122 H* D Total Protein Albumin TSH Urine Color Urine Appearance Urine pH Ur Specific [place] Urine Protein Urine Glucose (UA) Urine Ketones Ur Blood (Man) Urine Nitrate Urine Bilirubin Urine Urobilinogen Add Ur Microanalysis Leukocyte Esterase Rfl Urine RBC Urine WBC Urine WBC Clumps Ur Squamous Epith Cells Urine Bacteria Urine Casts Hyaline Casts Urine Eosinophils Ur Random Sodium Ur Random Potassium Urine Creatinine Nasal MRSA (PCR) 03/28/24 03/28/24 03/28/24 15:53 17:16 17:17 WBC RBC Hgb Hct MCV MCH MCHC RDW Plt Count MPV Immature Gran % (Auto) Neut % (Auto) Lymph % (Auto) [place] % (Auto) Eos % (Auto) Baso % (Auto) Lymph # (Auto) [place] # (Auto) Eos # (Auto) Baso # (Auto) Abs Immat Gran (auto) Absolute Neuts (auto) Absolute Nucleated RBC Nucleated RBC % Platelet Estimate Hypochromasia Anisocytosis Ovalocytes Schistocytes PT INR APTT Puncture Site ABG pH ABG pCO2 ABG pO2 ABG PO2/FiO2 Ratio ABG HCO3 ABG O2 Saturation ABG O2 Content ABG Base Excess A-a Gradient Oxyhemoglobin Carboxyhemoglobin Methemoglobin Reduced Hemoglobin Total Hemoglobin O2 Delivery Device O2 Liters/Min Minute Volume Vent Rate Vent Mode FiO2 Tidal Volume PEEP Peak Inspir Pressure Pressure Support Sodium 134 L Potassium 4.1 Chloride 92 L Carbon Dioxide 36 H Anion Gap 6 BUN 58 H Creatinine 2.26 H Estim Creat Clear Calc 34 Estimated GFR 28 L Glucose 115 H POC Capillary Glucose 123 H Lactic Acid Calcium 8.7 Phosphorus Magnesium Total Bilirubin AST ALT Alkaline Phosphatase Total Creatine Kinase Troponin I Total Protein Albumin TSH Urine Color Urine Appearance Urine pH Ur Specific [place] Urine Protein Urine Glucose (UA) Urine Ketones Ur Blood (Man) Urine Nitrate Urine Bilirubin Urine Urobilinogen Add Ur Microanalysis Leukocyte Esterase Rfl Urine RBC Urine WBC Urine WBC Clumps Ur Squamous Epith Cells Urine Bacteria Urine Casts Hyaline Casts Urine Eosinophils None seen Ur Random Sodium 61 Ur Random Potassium 23.9 Urine Creatinine 28.4 Nasal MRSA (PCR) 03/29/24 03/29/24 03/29/24 00:09 04:55 06:14 WBC 8.4 RBC 3.31 L Hgb 9.1 L Hct 30.5 L MCV 92.1 D MCH 27.5 MCHC 29.8 L RDW 16.0 H Plt Count 125 L MPV 9.9 Immature Gran % (Auto) 0.6 H Neut % (Auto) 73.8 H Lymph % (Auto) 12.9 L [place] % (Auto) 10.4 H Eos % (Auto) 1.8 Baso % (Auto) 0.5 Lymph # (Auto) 1.09 [place] # (Auto) 0.9 H Eos # (Auto) 0.2 Baso # (Auto) 0.0 Abs Immat Gran (auto) 0.05 H Absolute Neuts (auto) 6.2 Absolute Nucleated RBC 0.000 Nucleated RBC % 0.0 Platelet Estimate Decreased Hypochromasia 1+ Anisocytosis 1+ Ovalocytes 1+ Schistocytes None seen PT 15.1 H INR 1.1 APTT 41.1 H Puncture Site Left radial ABG pH 7.493 H ABG pCO2 45.3 H ABG pO2 54.9 L ABG PO2/FiO2 Ratio 1.10 ABG HCO3 34.0 H ABG O2 Saturation 90.7 L ABG O2 Content 12.5 L ABG Base Excess 9.7 A-a Gradient 250.6 Oxyhemoglobin 88.5 L Carboxyhemoglobin 0.4 Methemoglobin 0.3 Reduced Hemoglobin 10.8 H Total Hemoglobin 10.0 L O2 Delivery Device Ventilator O2 Liters/Min Not Reportable Minute Volume Not Reportable Vent Rate 18 Vent Mode Cmv FiO2 50 Tidal Volume 500 PEEP 5 Peak Inspir Pressure Not Reportable Pressure Support Not Reportable Sodium 136 L Potassium 4.2 Chloride 93 L Carbon Dioxide 34 H Anion Gap 9 BUN 54 H Creatinine 2.09 H Estim Creat Clear Calc 36 Estimated GFR 31 L Glucose 136 H POC Capillary Glucose 156 H Lactic Acid 1.3 Calcium 9.0 Phosphorus 2.8 Magnesium 2.0 Total Bilirubin 1.0 AST 16 L ALT 12 Alkaline Phosphatase 49 Total Creatine Kinase Troponin I Total Protein 6.0 L Albumin 3.3 L TSH 1.460 Urine Color Urine Appearance Urine pH Ur Specific [place] Urine Protein Urine Glucose (UA) Urine Ketones Ur Blood (Man) Urine Nitrate Urine Bilirubin Urine Urobilinogen Add Ur Microanalysis Leukocyte Esterase Rfl Urine RBC Urine WBC Urine WBC Clumps Ur Squamous Epith Cells Urine Bacteria Urine Casts Hyaline Casts Urine Eosinophils Ur Random Sodium Ur Random Potassium Urine Creatinine Nasal MRSA (PCR) 03/29/24 06:38 WBC RBC Hgb Hct MCV MCH MCHC RDW Plt Count MPV Immature Gran % (Auto) Neut % (Auto) Lymph % (Auto) [place] % (Auto) Eos % (Auto) Baso % (Auto) Lymph # (Auto) [place] # (Auto) Eos # (Auto) Baso # (Auto) Abs Immat Gran (auto) Absolute Neuts (auto) Absolute Nucleated RBC Nucleated RBC % Platelet Estimate Hypochromasia Anisocytosis Ovalocytes Schistocytes PT INR APTT Puncture Site ABG pH ABG pCO2 ABG pO2 ABG PO2/FiO2 Ratio ABG HCO3 ABG O2 Saturation ABG O2 Content ABG Base Excess A-a Gradient Oxyhemoglobin Carboxyhemoglobin Methemoglobin Reduced Hemoglobin Total Hemoglobin O2 Delivery Device O2 Liters/Min Minute Volume Vent Rate Vent Mode FiO2 Tidal Volume PEEP Peak Inspir Pressure Pressure Support Sodium Potassium Chloride Carbon Dioxide Anion Gap BUN Creatinine Estim Creat Clear Calc Estimated GFR Glucose POC Capillary Glucose 146 H Lactic Acid Calcium Phosphorus Magnesium Total Bilirubin AST ALT Alkaline Phosphatase Total Creatine Kinase Troponin I Total Protein Albumin TSH Urine Color Urine Appearance Urine pH Ur Specific [place] Urine Protein Urine Glucose (UA) Urine Ketones Ur Blood (Man) Urine Nitrate Urine Bilirubin Urine Urobilinogen Add Ur Microanalysis Leukocyte Esterase Rfl Urine RBC Urine WBC Urine WBC Clumps Ur Squamous Epith Cells Urine Bacteria Urine Casts Hyaline Casts Urine Eosinophils Ur Random Sodium Ur Random Potassium Urine Creatinine Nasal MRSA (PCR) Quality VTE Prophylaxis VTE prophylaxis: mechanical ordered and pharmacologic ordered
[2024-03-29 11:55] LABS: Glucose Point of Care 121 mg/dl (65-105)
[2024-03-29 15:44] LABS: Vancomycin Random 12.4 ug/mL (10-20)
[2024-03-29] MEDS: VANCOMYCIN 1,500 MG/NS 500 ML 1,500 MG/500 ML BAG 250 MG IVPB (17:30)
[2024-03-29 17:59] LABS: Glucose Point of Care 123 mg/dl (65-105)
[2024-03-29] MEDS: MIDAZOLAM 100MG/NS 100ML(*CRX) 100 MG/100 ML BAG IV CONT (18:02)
[2024-03-30] VITALS (33 sets, daily range): BP systolic 107–153; BP diastolic 52–115; PULSE 73–108; RESP 18–28; TEMP 36.8–37.6; O2SAT 91–100
[2024-03-30 00:31] LABS: Glucose Point of Care 144 mg/dl (65-105)
[2024-03-30] MEDS: IPRATROPIUM BR 0.02% INH SOLN 0.5 MG/2.5 ML VIAL INHALATION ×4 (01:26→20:21)
[2024-03-30] MEDS: LEVALBUTEROL NEB 1.25 MG/3 ML INHALATION ×4 (01:26→20:21)
[2024-03-30 04:40] LABS: Basophils Percent Auto 0.3 % (0.2-1.2); Eosinophils Absolute Auto 0.1 K/mm3 (0-0.3); Eosinophils Percent Auto 1.8 % (0-4.4); Hematocrit 28.3 % (42.0-52.0); Hemoglobin 8.7 g/dL (14.0-18.0); Immature Granulocyte Absolute 0.04 K/mm3 (0.00-0.031); Immature Granulocyte Percent A 0.5 % (0-0.5); Lymphocytes Absolute Auto 0.82 K/mm3 (0.9-3.2); Lymphocytes Percent Auto 10.4 % (18.3-44.2); Mean Corpuscular HGB Conc 30.7 g/dl (32-36); Mean Corpuscular Hemoglobin 28.2 pg (26-34); Mean Corpuscular Volume 91.9 fl (80-100); Mean Platelet Volume 10.3 fl (7.4-10.4); Monocytes Absolute Auto 0.9 K/mm3 (0.1-0.6); Monocytes Percent Auto 10.8 % (2.6-8.5); Neutrophils Percent Auto 76.2 % (45.5-73.1); Platelet Count Result 123 k/mm3 (150-375); Red Blood Count 3.08 M/mm3 (4.6-6.20); Red Cell Distribution Width 16.8 % (11.5-14.5); White Blood Count 7.9 K/mm3 (4.5-10.0)
[2024-03-30 04:54] LABS: Alanine Aminotransferase 11 U/L (6-50); Albumin Level 3.1 g/dL (3.5-5.1); Alkaline Phosphatase 50 U/L (38-126); Anion Gap 6 mmol/L (4-12); Aspartate Amino Transferase 16 U/L (17-59); Bilirubin,Total 0.8 mg/dL (0.2-1.3); Blood Urea Nitrogen 50 mg/dL (9-20); Calcium 9.2 mg/dL (8.4-10.2); Carbon Dioxide 33 mmol/L (22-30); Chloride 98 mmol/L (98-107); Estimated CRCL calculation 43 ml/min; Estimated Glomerular Filt Rate 38; Glucose 148 mg/dL (65-110); Lactic Acid Reflex 0.8 mmol/L (0.7-2.0); Potassium 3.9 mmol/L (3.4-5.0); Sodium 137 mmol/L (137-145)
[2024-03-30 05:14] LABS: Alveolar/Arterial O2 Gradient 124.8 mmHg; Base Excess ABG 8.8 mEq/l (+/-2.0); Carboxyhemoglobin 0.1 % THb (0-2.0); Fractional Inspired Oxygen 40 %; HCO3 ABG 34.4 mEq/l (22.0-26.0); Methemoglobin ABG 0.3 %THb (0-1.5); Oxygen Content ABG 13.4 %vol (16.0-22.0); Oxygen Saturation ABG 97.6 % (95.0-100.0); Oxyhemoglobin 96.9 % THb (90.0-100.0); PCO2 ABG 53.1 mmHg (35.0-45.0); PO2 ABG 99.3 mmHg (80.0-100.0); PO2 FiO2 Ratio Arterial Blood 2.48 %; Reduced Hemoglobin 2.7 %THb (0-5.0); Total Hemoglobin 9.7 g/dL (12.0-18.0); pH ABG 7.429 (7.350-7.450)
[2024-03-30 05:16] LABS: Site Drawn RIGHT RADIAL
[2024-03-30 05:17] LABS: Arterial Blood Gas Vent Mode CMV; Arterial Blood Gas Ventilator rate 18 /MIN; Device VENTILATOR; Modified Allen's Test Pass
[2024-03-30 05:18] LABS: Arterial Blood Gas PEEP 8 cmH2O; Arterial Blood Gas Tidal Volume 500 ml
[2024-03-30] MEDS: SALINE LOCK FLUSH 10 ML IV PUSH ×3 (05:45→20:57)
[2024-03-30] MEDS: LEVOTHYROXINE SODIUM 50 MCG TABLET PO (05:45)
[2024-03-30] MEDS: CENTRAL LINE FLUSH 10 ML IV PUSH ×3 (05:45→20:56)
[2024-03-30] MEDS: cefTRIAXone 2 GM/NS 100 ML 2 GM/100 ML BAG IVPB (08:42)
[2024-03-30] MEDS: DOXYCYCLINE 100 MG/NS 100 ML 100 MG/100 ML BAG IVPB ×2 (08:42→20:56)
[2024-03-30] MEDS: PANTOPRAZOLE SODIUM IV 40 MG VIAL IV PUSH (08:43)
[2024-03-30] MEDS: APIXABAN 5 MG TABLET PO (08:43)
[2024-03-30] MEDS: SENNA/DOCUSATE SODIUM TABLET 1 TAB PO ×2 (08:43→20:55)
[2024-03-30] MEDS: MINERAL OIL/WHITE PETROLATUM OINTMENT 1 APPLIC EACH EYE ×2 (08:43→20:55)
[2024-03-30] MEDS: polyethylene glycoL 3350 17 GM POWD.PACK PO (08:43)
--- NOTE | 2024-03-30 09:49 | WPDUROPN2 ---
Progress Note: A&P Assessment and Plan (1) Acute urinary retention: Code(s): R33.8 - Other retention of urine Status: Acute (2) Acute on chronic renal insufficiency: Code(s): N28.9 - Disorder of kidney and ureter, unspecified; N18.9 - Chronic kidney disease, unspecified Status: Acute Plan 74 yr old male admitted with respiratory failure and fecal impactation with evidence of urinary retention, acute on chronic renal insufficiency, and mild hydronephrosis due to fecal impaction - bl[place] in place draining clear yellow urine with good UOP - Cr improved to 1.74 - continue aggressive bowel regiment - urine culture NG; will defer to primary team re: antibiotics Subjective Subjective Date/Time Seen: 03/30/24 09:49 Interval history: Remains intubated and sedated. Good UOP. Review of Systems Review of Systems: ROS unobtainable: Yes unobtainable due to endotracheal tube Exam Const: Other: Intubated/sedated Urinary Catheter: Urinary Catheter: patent and draining and urine clear (yellow) Objective Data Vital Signs Vital Signs: Vital Signs - 24 hr 03/29/24 10:00 03/29/24 10:00 03/29/24 10:00 Temperature Pulse Rate 89 89 89 Respiratory Rate 18 18 18 Blood Pressure 128/76 Pulse Oximetry 95 Oxygen Delivery Fraction of Inspired Oxygen 03/29/24 10:00 03/29/24 11:08 03/29/24 12:00 Temperature Pulse Rate 89 77 74 Respiratory Rate 21 H Blood Pressure Pulse Oximetry 95 Oxygen Delivery Mechanical Ventilation Fraction of Inspired Oxygen 50 03/29/24 12:00 03/29/24 12:00 03/29/24 12:00 Temperature 36.4 C Pulse Rate 74 82 81 Respiratory Rate 21 H 18 Blood Pressure 132/75 Pulse Oximetry 96 Oxygen Delivery Fraction of Inspired Oxygen 03/29/24 12:00 03/29/24 12:00 03/29/24 14:00 Temperature Pulse Rate 92 Respiratory Rate 21 H Blood Pressure Pulse Oximetry Oxygen Delivery Mechanical Ventilation Fraction of Inspired Oxygen 50 50 03/29/24 14:00 03/29/24 14:00 03/29/24 14:00 Temperature Pulse Rate 92 92 92 Respiratory Rate 21 H 21 H Blood Pressure 111/81 Pulse Oximetry 96 Oxygen Delivery Fraction of Inspired Oxygen 03/29/24 15:00 03/29/24 15:00 03/29/24 15:26 Temperature Pulse Rate 104 H 104 H 104 H Respiratory Rate 22 H 22 H 19 Blood Pressure Pulse Oximetry Oxygen Delivery Fraction of Inspired Oxygen 03/29/24 15:35 03/29/24 15:36 03/29/24 16:00 Temperature Pulse Rate 104 H 98 Respiratory Rate 19 Blood Pressure Pulse Oximetry 96 Oxygen Delivery Mechanical Ventilation Mechanical Ventilation Fraction of Inspired Oxygen 50 50 03/29/24 16:00 03/29/24 16:00 03/29/24 16:00 Temperature 36.6 C Pulse Rate 93 101 H Respiratory Rate 18 Blood Pressure 102/62 Pulse Oximetry 95 Oxygen Delivery Fraction of Inspired Oxygen 50 03/29/24 16:00 03/29/24 16:00 03/29/24 18:00 Temperature Pulse Rate 93 93 110 H Respiratory Rate 18 18 Blood Pressure Pulse Oximetry Oxygen Delivery Fraction of Inspired Oxygen 03/29/24 18:00 03/29/24 18:00 03/29/24 18:02 Temperature Pulse Rate 110 H 110 H 110 H Respiratory Rate 19 19 19 Blood Pressure 119/73 Pulse Oximetry 97 Oxygen Delivery Fraction of Inspired Oxygen 03/29/24 18:02 03/29/24 19:45 03/29/24 20:00 Temperature 37.7 C H Pulse Rate 110 H 98 Respiratory Rate 19 18 Blood Pressure Pulse Oximetry Oxygen Delivery Fraction of Inspired Oxygen 03/29/24 20:00 03/29/24 20:00 03/29/24 20:00 Temperature Pulse Rate 98 97 Respiratory Rate 18 Blood Pressure Pulse Oximetry Oxygen Delivery Fraction of Inspired Oxygen 40 03/29/24 20:00 03/29/24 20:00 03/29/24 21:06 Temperature Pulse Rate 100 88 Respiratory Rate 20 Blood Pressure 105/83 Pulse Oximetry 96 93 Oxygen Delivery Mechanical Ventilation Mechanical Ventilation Fraction of Inspired Oxygen 40 40 03/29/24 21:09 03/29/24 21:20 03/29/24 22:00 Temperature Pulse Rate 84 87 88 Respiratory Rate 18 18 18 Blood Pressure Pulse Oximetry Oxygen Delivery Fraction of Inspired Oxygen 03/29/24 22:00 03/29/24 22:00 03/29/24 22:00 Temperature Pulse Rate 88 88 79 Respiratory Rate 18 18 Blood Pressure Pulse Oximetry Oxygen Delivery Fraction of Inspired Oxygen 03/29/24 22:00 03/29/24 23:36 03/30/24 00:00 Temperature Pulse Rate 79 88 91 Respiratory Rate 18 18 Blood Pressure 136/84 Pulse Oximetry 93 93 Oxygen Delivery Mechanical Ventilation Fraction of Inspired Oxygen 40 03/30/24 00:00 03/30/24 00:00 03/30/24 00:00 Temperature Pulse Rate 91 Respiratory Rate 18 Blood Pressure Pulse Oximetry Oxygen Delivery Mechanical Ventilation Fraction of Inspired Oxygen 40 40 03/30/24 00:00 03/30/24 00:01 03/30/24 01:27 Temperature 37.6 C Pulse Rate 104 H 91 92 Respiratory Rate 18 Blood Pressure 110/68 Pulse Oximetry 94 94 Oxygen Delivery Mechanical Ventilation Fraction of Inspired Oxygen 40 03/30/24 01:27 03/30/24 01:40 03/30/24 02:00 Temperature Pulse Rate 92 92 91 Respiratory Rate 18 18 18 Blood Pressure Pulse Oximetry Oxygen Delivery Fraction of Inspired Oxygen 03/30/24 02:00 03/30/24 02:00 03/30/24 02:00 Temperature Pulse Rate 91 91 91 Respiratory Rate 18 18 Blood Pressure 110/69 Pulse Oximetry 94 Oxygen Delivery Fraction of Inspired Oxygen 03/30/24 03:41 03/30/24 03:48 03/30/24 04:00 Temperature Pulse Rate 91 Respiratory Rate 18 Blood Pressure Pulse Oximetry Oxygen Delivery Mechanical Ventilation Fraction of Inspired Oxygen 40 40 03/30/24 04:00 03/30/24 04:00 03/30/24 04:00 Temperature 37.2 C Pulse Rate 91 91 88 Respiratory Rate 18 18 Blood Pressure 107/52 L Pulse Oximetry 93 Oxygen Delivery Fraction of Inspired Oxygen 03/30/24 05:01 03/30/24 06:00 03/30/24 06:00 Temperature Pulse Rate 82 83 83 Respiratory Rate 18 18 Blood Pressure Pulse Oximetry 95 Oxygen Delivery Mechanical Ventilation Fraction of Inspired Oxygen 40 03/30/24 06:00 03/30/24 06:00 03/30/24 08:00 Temperature 36.8 C Pulse Rate 83 83 85 Respiratory Rate 18 18 Blood Pressure 110/75 107/57 L Pulse Oximetry 96 95 Oxygen Delivery Fraction of Inspired Oxygen 03/30/24 08:00 03/30/24 08:00 03/30/24 08:15 Temperature Pulse Rate 85 85 95 Respiratory Rate 18 18 18 Blood Pressure Pulse Oximetry Oxygen Delivery Fraction of Inspired Oxygen 03/30/24 08:17 03/30/24 08:21 03/30/24 08:40 Temperature Pulse Rate 80 79 80 Respiratory Rate 18 18 Blood Pressure Pulse Oximetry 95 Oxygen Delivery Mechanical Ventilation Fraction of Inspired Oxygen 40 03/30/24 08:40 Temperature Pulse Rate 80 Respiratory Rate 18 Blood Pressure Pulse Oximetry Oxygen Delivery Fraction of Inspired Oxygen Intake/Output Intake/Output: Intake & Output 03/27/24 03/28/24 03/29/24 03/30/24 23:59 23:59 23:59 23:59 Intake Total 2755.1 908.0 752.3 Output Total 2250 2550 1050 Balance 505.1 -1642.0 -297.7 Meds/Results Medications: Active Medications Generic Name Dose Route Start Last Admin Trade Name Freq PRN Reason Stop Dose Admin Apixaban 5 mg 03/29/24 09:00 03/30/24 08:43 Apixaban 5 Mg Tablet PO 5 mg DAILY LAURA Administration Bisacodyl 10 mg 03/28/24 19:00 Bisacodyl 10 Mg Suppository RECTAL DAILY PRN Constipation Dextrose 12.5 gm 03/28/24 13:45 Dextrose 50% 25 Gm/50 Ml Syringe IV PUSH PRN PRN Hypoglycemia Protocol Glucagon 1 mg 03/28/24 13:45 Glucagon For Inj 1 Mg Vial IM PRN PRN Hypoglycemia Protocol Glucose 15 gm 03/28/24 13:45 Glucose Oral Gel 15 Gm Of Glucse In 37.5 Gm Tube PO PRN PRN Hypoglycemia Protocol Dextrose 1,000 mls @ 100 mls/hr 03/28/24 13:45 Dextrose 5% 1,000 Ml IVPB PRN PRN Hypoglycemia Protocol Ceftriaxone Sodium 2 gm in 100 mls @ 200 mls/hr 03/29/24 09:00 03/30/24 08:42 Rocephin 2 Gm/Ns 100 Ml IVPB 100 mls/hr Q24H LAURA Administration Doxycycline Hyclate 100 mg in 100 mls @ 100 mls/hr 03/28/24 13:50 03/30/24 08:42 Vibramycin 100 Mg/Ns 100 Ml IVPB 100 mls/hr Q12HR LAURA Administration Midazolam HCl 100 mg in 100 mls @ 0 mls/hr 03/28/24 13:55 03/30/24 08:40 Versed 100 Mg/Ns 100 Ml IV CONT 0 mg/hr .Q0M LAURA 0 mls/hr Titration Protocol Fentanyl Citrate 2,500 mcg in 250 mls @ 0 mls/hr 03/29/24 04:30 03/30/24 08:40 Fentanyl 2,500 Mcg/Ns 250 Ml IV CONT 0 mcg/hr .Q0M LAURA 0 mls/hr Titration Protocol Insulin Aspart 3 - 6 units 03/28/24 18:00 03/30/24 05:45 Insulin Aspart (*Bkc) 100 Units/Ml SUB-Q Not Given Q6HR LAURA Protocol Ipratropium [place] 0.5 mg 03/28/24 14:00 03/30/24 08:14 Ipratropium Br 0.02% Inh Soln 0.5 Mg/2.5 Ml Vial INHALATION 0.5 mg Q6HRT LAURA Administration Levalbuterol HCl 1.25 mg 03/28/24 14:00 03/30/24 08:14 Levalbuterol Neb 1.25 Mg/3 Ml INHALATION 1.25 mg Q6HRT LAURA Administration Levothyroxine Sodium 50 mcg 03/29/24 06:30 03/30/24 05:45 Levothyroxine Sodium 50 Mcg Tablet PO 50 mcg DAILY@0630 LAURA Administration Multi-Ingred Cream/Lotion/Oil/Oint 1 applic 03/28/24 21:00 03/30/24 08:43 Mineral Oil/White Petrolatum Ointment EACH EYE 1 applic Q12HR LAURA Administration Pantoprazole Sodium 40 mg 03/29/24 09:00 03/30/24 08:43 Pantoprazole Sodium Iv 40 Mg Vial IV PUSH 40 mg QAM LAURA Administration Perflutren Lipid Microsphere 0 ml 03/28/24 14:34 Perflutren Lipid Microspheres 1.5 Ml Vial Diluted To 10 Ml Total Volume IV PUSH 03/31/24 14:34 ONCE PRN adequate visualization Protocol Polyethylene Glycol 17 gm 03/30/24 09:00 03/30/24 08:43 Polyethylene Glycol 3350 17 Gm Powd.Pack PO 17 gm QAM LAURA Administration Senna/Docusate Sodium 1 tab 03/30/24 09:00 03/30/24 08:43 Senna/Docusate Sodium Tablet PO 1 tab Q12HR LAURA Administration Sodium Chloride 10 ml 03/28/24 14:00 03/30/24 05:45 Saline Lock Flush IV PUSH 10 ml Q8HR LAURA Administration Sodium Chloride 10 ml 03/28/24 14:00 03/30/24 05:45 Central Line Flush IV PUSH 10 ml Q8HR LAURA Administration Sodium Chloride 10 ml 03/28/24 12:56 Central Line Flush IV PUSH PRN PRN with TPN bag changes Sodium Chloride 20 ml 03/28/24 12:56 Central Line Flush IV PUSH PRN PRN after blood draws Vancomycin HCl 1 each 03/28/24 14:45 Vancomycin For Acute Kidney Injury IVPB PRN PRN Vancomycin Protocol Radiology Results: ITS Impressions Abdomen X-Ray 03/28/24 10:10 IMPRESSION: 1. Nasogastric tube tip in the stomach. Head CT 03/28/24 10:49 Impression: No intracranial hemorrhage, mass, or acute infarct. Atrophy and chronic white matter changes, as above. Renal Ultrasound 03/28/24 15:15 IMPRESSION: 1. Mild right hydronephrosis. The previously seen stones in the right renal collecting system are no longer visualized patient concern for progression into the ureter with secondary obstruction. The stones were visible on the prior CT but not on intervening upper GI study performed on 03/04/2024 suggesting may be difficult to identify by a radiolucent would consider renal stone CT for further evaluation. Abdomen/Pelvis CT 03/29/24 09:39 IMPRESSION: 1. Mild bilateral hydronephrosis without evident urolithiasis. This is likely related to the wall thickening in the decompressed bladder itself likely related to cystitis. 2. Consolidation at the bilateral lower lungs suspicious for combination of atelectasis and pneumonia. 3. Persistent 7.5 cm ball of stool at the rectum with mild wall thickening and minimal perirectal stranding which can be seen with constipation/fecal impaction and secondary stercoral colitis. Chest X-Ray 03/30/24 06:47 IMPRESSION: 1. Opacities in the bilateral lower lung zones consistent with atelectasis and/or pneumonia and small left pleural effusion. 2. Cardiomegaly. 3. Unchanged left upper extremity PICC line with tip folded back upon itself in the right brachiocephalic vein. Labs Labs: Laboratory Results - last 24 hr 03/29/24 03/29/24 03/29/24 11:46 15:03 17:56 WBC RBC Hgb Hct MCV MCH MCHC RDW Plt Count MPV Immature Gran % (Auto) Neut % (Auto) Lymph % (Auto) [place] % (Auto) Eos % (Auto) Baso % (Auto) Lymph # (Auto) [place] # (Auto) Eos # (Auto) Baso # (Auto) Abs Immat Gran (auto) Absolute Neuts (auto) Absolute Nucleated RBC Nucleated RBC % Puncture Site ABG pH ABG pCO2 ABG pO2 ABG PO2/FiO2 Ratio ABG HCO3 ABG O2 Saturation ABG O2 Content ABG Base Excess A-a Gradient Oxyhemoglobin Carboxyhemoglobin Methemoglobin Reduced Hemoglobin Total Hemoglobin O2 Delivery Device O2 Liters/Min Minute Volume Vent Rate Vent Mode FiO2 Tidal Volume PEEP Peak Inspir Pressure Pressure Support Sodium Potassium Chloride Carbon Dioxide Anion Gap BUN Creatinine Estim Creat Clear Calc Estimated GFR Glucose POC Capillary Glucose 121 H 123 H Lactic Acid Calcium Phosphorus Magnesium Total Bilirubin AST ALT Alkaline Phosphatase Total Protein Albumin Random Vancomycin 12.4 03/30/24 03/30/24 03/30/24 00:18 04:26 05:12 WBC 7.9 RBC 3.08 L Hgb 8.7 L Hct 28.3 L MCV 91.9 MCH 28.2 MCHC 30.7 L RDW 16.8 H Plt Count 123 L MPV 10.3 Immature Gran % (Auto) 0.5 Neut % (Auto) 76.2 H Lymph % (Auto) 10.4 L [place] % (Auto) 10.8 H Eos % (Auto) 1.8 Baso % (Auto) 0.3 Lymph # (Auto) 0.82 L [place] # (Auto) 0.9 H Eos # (Auto) 0.1 Baso # (Auto) 0.0 Abs Immat Gran (auto) 0.04 H Absolute Neuts (auto) 6.0 Absolute Nucleated RBC 0.000 Nucleated RBC % 0.0 Puncture Site Right radial ABG pH 7.429 ABG pCO2 53.1 H ABG pO2 99.3 ABG PO2/FiO2 Ratio 2.48 ABG HCO3 34.4 H ABG O2 Saturation 97.6 ABG O2 Content 13.4 L ABG Base Excess 8.8 A-a Gradient 124.8 Oxyhemoglobin 96.9 Carboxyhemoglobin 0.1 Methemoglobin 0.3 Reduced Hemoglobin 2.7 Total Hemoglobin 9.7 L O2 Delivery Device Ventilator O2 Liters/Min Not Reportable Minute Volume Not Reportable Vent Rate 18 Vent Mode Cmv FiO2 40 Tidal Volume 500 PEEP 8 Peak Inspir Pressure Not Reportable Pressure Support Not Reportable Sodium 137 Potassium 3.9 Chloride 98 Carbon Dioxide 33 H Anion Gap 6 BUN 50 H Creatinine 1.74 H Estim Creat Clear Calc 43 Estimated GFR 38 L Glucose 148 H POC Capillary Glucose 144 H Lactic Acid 0.8 Calcium 9.2 Phosphorus 3.0 Magnesium 2.0 Total Bilirubin 0.8 AST 16 L ALT 11 Alkaline Phosphatase 50 Total Protein 6.0 L Albumin 3.1 L Random Vancomycin
--- NOTE | 2024-03-30 11:11 | P.PNINT_ITS ---
Progress Note: A&P Assessment and Plan (1) Acute respiratory failure with hypercapnia: Code(s): J96.02 - Acute respiratory failure with hypercapnia Status: Acute Assessment and Plan: 01/25:Patient presented with respiratory distress, shortness of breath, altered mental status -initial ABG showed pH of 7.19 and pCO2 of 117, patient was obtunded, BiPAP was not an option due to altered mental status so that patient was intubated in the ER -etiology: COPD exacerbation, hypercapnic respiratory failure, pneumonia, obesity hypoventilation syndrome, obstructive sleep apnea may also be playing a role -continue CMV mode of ventilation, peep of 8, 40% FiO2 - -contain Xopenex and Atrovent nebs -sedated with fentanyl and Versed infusion, maintain RASS of 0 to -2, daily SBT and SAT, asked the bedside RN to trend down the sedation and wake the patient up so we can place him on SBT and SAT. - RSV, COVID and influenza are negative -03/30: I have asked the bedside RN to discontinue sedation, once he is more aw gissell will place him on SBT and evaluate for extubation. Patient may require Precedex if he is agitated or uncomfortable. chest x-ray and ABGs reviewed, (2) Shock: Code(s): R57.9 - Shock, unspecified Status: Acute Assessment and Plan: Patient presented with hypotension, anemia related to sepsis/infection/hypovolemia, UTI -patient given 2 L IV fluid bolus in the ER -03/28: left-sided PICC line was inserted in the ER -off Levophed, continue maintain MAP > 65 mmHg wall show adequate end organ perfusion -urine output has been good, improving creatinine, - monitor urine output and renal function -continue ceftriaxone, add vancomycin and doxycycline (03/28) -MRSA screen was positive -03/28: Preliminary blood cultures are negative -03/28: urine cultures with no growth -03/28: Sputum culture -growth of for normal oropharyngeal terence (3) Acute worsening of stage 3 chronic kidney disease: Code(s): N18.30 - Chronic kidney disease, stage 3 unspecified Status: Acute Assessment and Plan: Patient has history of chronic kidney disease stage 3 (baseline creatinine seems to be 1.4-1.8). Likely related to hypotension from shock, infection, UTI, hypovolemia -patient presented with a creatinine of 2.67 this admission -adequately fluid-resuscitated negative blood cultures 03/29/2024 only -status post IV fluids -used albumin for additional intravascular volume repletion -continue to monitor urine output, renal function electrolytes -mild hydronephrosis on renal ultrasound was noted, -appreciate urology evaluation recommendations. They requested a CT scan of the abdomen and pelvis to rule out renal stones. CT scan of the abdomen and pelvis as below, no further intervention 03/29: CT abdomen and pelvis IMPRESSION: 1. Mild bilateral hydronephrosis without evident urolithiasis. This is likely related to the wall thickening in the decompressed bladder itself likely related to cystitis. 2. Consolidation at the bilateral lower lungs suspicious for combination of atelectasis and pneumonia. 3. Persistent 7.5 cm ball of stool at the rectum with mild wall thickening and minimal perirectal stranding which can be seen with constipation/fecal impaction and secondary stercoral colitis. (4) Atrial fibrillation: Qualifiers: Atrial fibrillation type: unspecified Qualified Code(s): I48.91 - Unspecified atrial fibrillation Code(s): I48.91 - Unspecified atrial fibrillation Status: Chronic Assessment and Plan: Patient has a history of atrial fibrillation on Eliquis and the nursing -currently was in AFib, rate controlled -continue Eliquis (5) Chronic obstructive pulmonary disease: Code(s): J44.9 - Chronic obstructive pulmonary disease, unspecified Status: Acute Assessment and Plan: History of COPD, on 4 L home oxygen -continue antibiotics, bronchodilator -will hold steroids as patient does not have any wheezing (6) Diabetes mellitus: Code(s): E11.9 - Type 2 diabetes mellitus without complications Status: Chronic Assessment and Plan: Accu-Cheks and sliding scale insulin (7) Heart failure with preserved ejection fraction: Code(s): I50.30 - Unspecified diastolic (congestive) heart failure Status: Acute Assessment and Plan: ProBNP was 9230 -troponin was 0.042, 0.122 -chest x-ray does not look fluid volume overloaded -continue to monitor 03/29/2024: Echocardiogram Summary 1. Complete two-dimensional, color flow and Doppler transthoracic echocardiogram is performed. 2. Left ventricular chamber dimension is moderately enlarged. 3. Left ventricular systolic function is moderately globally reduced, estimated at 40-45%. 4. The left ventricular diastolic function is normal. 5. E/e' 9 is minimally elevated. 6. Left atrial chamber dimension is moderately enlarged. 7. Right atrial chamber dimension is moderately enlarged. 8. There is mild aortic valve sclerosis. 9. There is mild mitral valve regurgitation. 10. There is mild to moderate tricuspid valve regurgitation. 11. Severe pulmonary hypertension, estimated pulmonary arterial systolic pressure is 64 mmHg. (8) Hypothyroidism: Code(s): E03.9 - Hypothyroidism, unspecified Status: Acute Assessment and Plan: Continue levothyroxine (9) Urinary tract infection: Code(s): N39.0 - Urinary tract infection, site not specified Status: Acute Assessment and Plan: UA was reflective of UTI, -Continue antibiotics as above, urine cultures have been obtained (10) Fecal impaction: Code(s): K56.41 - Fecal impaction Status: Acute Assessment and Plan: Fecal impaction with stool ball at the rectum as seen on the CT scan of the abdomen and pelvis as above -continue MiraLax and docusate with senna -will administer soapsuds enema today, Plan DVT prophylaxis: Eliquis Stress ulcer prophylaxis: Protonix Nutrition: Continue tube feeds. Code Status: Full code Critical Care Time Spent: 32 minutes Discuss with daughter during rounds, updated her with patient's condition plan of care. I answered all questions. Due to a high probability of clinically significant, life threatening deterioration, the patient required my highest level of preparedness to intervene emergently and I personally spent this critical care time directly and personally managing the patient. This critical care time included obtaining a history; examining the patient; pulse oximetry; ordering and review of studies; arranging urgent treatment with development of a management plan; evaluation of patient's response to treatment; frequent reassessment; and discussions with other providers. It was exclusive of separately billable procedures and treating other patients and teaching time. Please see Assessment and Plan section and the rest of the note for further information on patient assessment and treatment This dictation may have been done utilizing a voice recognition system. Attempts have been made to correct errors. However, there may be uncorrected grammatical, spelling, and recognitions errors present. Subjective Date/time seen: 03/30/24 11:11 Interval history: Reason for consult: Acute hypercapnic respiratory failure, encephalopathy, hypotensive, shock, pneumonia, UTI, acute on chronic kidney disease 03/30/2024: Patient seen and examined the ICU, remains intubated on CMV mode of ventilation, peep of 8, 40% FiO2. Sedated with fentanyl and Versed infusion, does not open his eyes or follow simple commands. Urine output has been good, creatinine continues to improve. Hemodynamically stable, afebrile. Normal leukocytosis 01/26/2025: Patient seen and examined the ICU remains intubated on CMV mode of ventilation, peep of 5, 50% FiO2. Sedated with fentanyl and Versed infusion, does not open his eyes or follow simple commands. With good urine output, creatinine improving. Off Levophed, hemodynamically stable. Lactic acid is normal Review of Systems Review of Systems: ROS unobtainable: Yes unobtainable due to endotracheal tube, unobtainable due to medical condition and unobtainable due to mental status Exam Narrative: General: Patient intubated, sedated, in no acute distress HEENT:? Pupils are pinpoint but equal and reactive, sclerae ischemia, ETT in place Neck:? Supple, thick neck Respiratory:? Coarse breath sounds bilaterally, decreased at bases, no wheezing, adequate air entry Cardiac:? Irregularly irregular, tachycardia Abdomen:? Says soft, nontender, nondistended, morbidly obese, hypoactive bowel sound Extremities:? Trace bilateral lower extremity edema, pitting edema on dorsum of the feet bilaterally. Palpable pedal pulses Neuro:? Patient is intubated, sedated, does not open his eyes or follow simple commands. Does withdraw to pain Skin:? Left big toe nail seems to have, off with residual clot Psych:? Unable to assess at this time Objective Data Vital Signs Vital Signs: Vital Signs - 24 hr 03/29/24 12:03/29/24 12:03/29/24 12:00 Temperature 97.6 F Pulse Rate 74 74 82 Respiratory Rate 21 H 21 H 18 Blood Pressure 132/75 Pulse Oximetry 96 Oxygen Delivery Fraction of Inspired Oxygen 03/29/24 12:03/29/24 12:00 03/29/24 12:00 Temperature Pulse Rate 81 Respiratory Rate Blood Pressure Pulse Oximetry Oxygen Delivery Mechanical Ventilation Fraction of Inspired Oxygen 50 50 03/29/24 14:00 03/29/24 14:00 03/29/24 14:00 Temperature Pulse Rate 92 92 92 Respiratory Rate 21 H 21 H 21 H Blood Pressure 111/81 Pulse Oximetry 96 Oxygen Delivery Fraction of Inspired Oxygen 03/29/24 14:00 03/29/24 15:00 03/29/24 15:00 Temperature Pulse Rate 92 104 H 104 H Respiratory Rate 22 H 22 H Blood Pressure Pulse Oximetry Oxygen Delivery Fraction of Inspired Oxygen 03/29/24 15:26 03/29/24 15:35 03/29/24 15:36 Temperature Pulse Rate 104 H 104 H 98 Respiratory Rate 19 19 Blood Pressure Pulse Oximetry 96 Oxygen Delivery Mechanical Ventilation Fraction of Inspired Oxygen 50 03/29/24 16:00 03/29/24 16:00 03/29/24 16:00 Temperature 97.9 F Pulse Rate 93 Respiratory Rate 18 Blood Pressure 102/62 Pulse Oximetry 95 Oxygen Delivery Mechanical Ventilation Fraction of Inspired Oxygen 50 50 03/29/24 16:00 03/29/24 16:00 03/29/24 16:00 Temperature Pulse Rate 101 H 93 93 Respiratory Rate 18 18 Blood Pressure Pulse Oximetry Oxygen Delivery Fraction of Inspired Oxygen 03/29/24 18:00 03/29/24 18:00 03/29/24 18:00 Temperature Pulse Rate 110 H 110 H 110 H Respiratory Rate 19 19 Blood Pressure 119/73 Pulse Oximetry 97 Oxygen Delivery Fraction of Inspired Oxygen 03/29/24 18:02 03/29/24 18:02 03/29/24 19:45 Temperature 99.9 F H Pulse Rate 110 H 110 H Respiratory Rate 19 19 Blood Pressure Pulse Oximetry Oxygen Delivery Fraction of Inspired Oxygen 03/29/24 20:00 03/29/24 20:00 03/29/24 20:00 Temperature Pulse Rate 98 98 97 Respiratory Rate 18 18 Blood Pressure Pulse Oximetry Oxygen Delivery Fraction of Inspired Oxygen 03/29/24 20:00 03/29/24 20:00 03/29/24 20:00 Temperature Pulse Rate 100 Respiratory Rate 20 Blood Pressure 105/83 Pulse Oximetry 96 Oxygen Delivery Mechanical Ventilation Fraction of Inspired Oxygen 40 40 03/29/24 21:06 03/29/24 21:09 03/29/24 21:20 Temperature Pulse Rate 88 84 87 Respiratory Rate 18 18 Blood Pressure Pulse Oximetry 93 Oxygen Delivery Mechanical Ventilation Fraction of Inspired Oxygen 40 03/29/24 22:00 03/29/24 22:00 03/29/24 22:00 Temperature Pulse Rate 88 88 88 Respiratory Rate 18 18 18 Blood Pressure Pulse Oximetry Oxygen Delivery Fraction of Inspired Oxygen 03/29/24 22:00 03/29/24 22:00 03/29/24 23:36 Temperature Pulse Rate 79 79 88 Respiratory Rate 18 Blood Pressure 136/84 Pulse Oximetry 93 93 Oxygen Delivery Mechanical Ventilation Fraction of Inspired Oxygen 40 03/30/24 00:00 03/30/24 00:00 03/30/24 00:00 Temperature Pulse Rate 91 91 Respiratory Rate 18 18 Blood Pressure Pulse Oximetry Oxygen Delivery Mechanical Ventilation Fraction of Inspired Oxygen 40 03/30/24 00:00 03/30/24 00:00 03/30/24 00:01 Temperature 99.6 F Pulse Rate 104 H 91 Respiratory Rate 18 Blood Pressure 110/68 Pulse Oximetry 94 Oxygen Delivery Fraction of Inspired Oxygen 40 03/30/24 01:27 03/30/24 01:27 03/30/24 01:40 Temperature Pulse Rate 92 92 92 Respiratory Rate 18 18 Blood Pressure Pulse Oximetry 94 Oxygen Delivery Mechanical Ventilation Fraction of Inspired Oxygen 40 03/30/24 02:00 03/30/24 02:00 03/30/24 02:00 Temperature Pulse Rate 91 91 91 Respiratory Rate 18 18 18 Blood Pressure 110/69 Pulse Oximetry 94 Oxygen Delivery Fraction of Inspired Oxygen 03/30/24 02:00 03/30/24 03:41 03/30/24 03:48 Temperature Pulse Rate 91 Respiratory Rate Blood Pressure Pulse Oximetry Oxygen Delivery Mechanical Ventilation Fraction of Inspired Oxygen 40 40 03/30/24 04:00 03/30/24 04:00 03/30/24 04:00 Temperature 98.9 F Pulse Rate 91 91 91 Respiratory Rate 18 18 18 Blood Pressure 107/52 L Pulse Oximetry 93 Oxygen Delivery Fraction of Inspired Oxygen 03/30/24 04:00 03/30/24 05:01 03/30/24 06:00 Temperature Pulse Rate 88 82 83 Respiratory Rate 18 Blood Pressure Pulse Oximetry 95 Oxygen Delivery Mechanical Ventilation Fraction of Inspired Oxygen 40 03/30/24 06:00 03/30/24 06:00 03/30/24 06:00 Temperature Pulse Rate 83 83 83 Respiratory Rate 18 18 Blood Pressure 110/75 Pulse Oximetry 96 Oxygen Delivery Fraction of Inspired Oxygen 03/30/24 08:00 03/30/24 08:00 03/30/24 08:00 Temperature 98.3 F Pulse Rate 85 85 85 Respiratory Rate 18 18 18 Blood Pressure 107/57 L Pulse Oximetry 95 Oxygen Delivery Fraction of Inspired Oxygen 03/30/24 08:15 03/30/24 08:17 03/30/24 08:21 Temperature Pulse Rate 95 80 79 Respiratory Rate 18 18 Blood Pressure Pulse Oximetry 95 Oxygen Delivery Mechanical Ventilation Fraction of Inspired Oxygen 40 03/30/24 08:40 03/30/24 08:40 03/30/24 10:00 Temperature Pulse Rate 80 80 100 Respiratory Rate 18 18 21 H Blood Pressure 140/60 Pulse Oximetry 94 Oxygen Delivery Fraction of Inspired Oxygen Intake/Output Intake/Output: Intake & Output 03/27/24 03/28/24 03/29/24 03/30/24 23:59 23:59 23:59 23:59 Intake Total 2755.1 908.0 752.3 Output Total 2250 2550 1050 Balance 505.1 -1642.0 -297.7 Meds/Results Medications: Active Medications Generic Name Dose Route Start Last Admin Trade Name Freq PRN Reason Stop Dose Admin Apixaban 5 mg 03/29/24 09:00 03/30/24 08:43 Apixaban 5 Mg Tablet PO 5 mg DAILY LAURA Administration Bisacodyl 10 mg 03/28/24 19:00 Bisacodyl 10 Mg Suppository RECTAL DAILY PRN Constipation Dextrose 12.5 gm 03/28/24 13:45 Dextrose 50% 25 Gm/50 Ml Syringe IV PUSH PRN PRN Hypoglycemia Protocol Glucagon 1 mg 03/28/24 13:45 Glucagon For Inj 1 Mg Vial IM PRN PRN Hypoglycemia Protocol Glucose 15 gm 03/28/24 13:45 Glucose Oral Gel 15 Gm Of Glucse In 37.5 Gm Tube PO PRN PRN Hypoglycemia Protocol Dextrose 1,000 mls @ 100 mls/hr 03/28/24 13:45 Dextrose 5% 1,000 Ml IVPB PRN PRN Hypoglycemia Protocol Ceftriaxone Sodium 2 gm in 100 mls @ 200 mls/hr 03/29/24 09:00 03/30/24 08:42 Rocephin 2 Gm/Ns 100 Ml IVPB 100 mls/hr Q24H LAURA Administration Doxycycline Hyclate 100 mg in 100 mls @ 100 mls/hr 03/28/24 13:50 03/30/24 08:42 Vibramycin 100 Mg/Ns 100 Ml IVPB 100 mls/hr Q12HR LAURA Administration Midazolam HCl 100 mg in 100 mls @ 0 mls/hr 03/28/24 13:55 03/30/24 08:40 Versed 100 Mg/Ns 100 Ml IV CONT 0 mg/hr .Q0M LAURA 0 mls/hr Titration Protocol Fentanyl Citrate 2,500 mcg in 250 mls @ 0 mls/hr 03/29/24 04:30 03/30/24 08:40 Fentanyl 2,500 Mcg/Ns 250 Ml IV CONT 0 mcg/hr .Q0M LAURA 0 mls/hr Titration Protocol Insulin Aspart 3 - 6 units 03/28/24 18:00 03/30/24 05:45 Insulin Aspart (*Bkc) 100 Units/Ml SUB-Q Not Given Q6HR LAURA Protocol Ipratropium [place] 0.5 mg 03/28/24 14:00 03/30/24 08:14 Ipratropium Br 0.02% Inh Soln 0.5 Mg/2.5 Ml Vial INHALATION 0.5 mg Q6HRT LAURA Administration Levalbuterol HCl 1.25 mg 03/28/24 14:00 03/30/24 08:14 Levalbuterol Neb 1.25 Mg/3 Ml INHALATION 1.25 mg Q6HRT LAURA Administration Levothyroxine Sodium 50 mcg 03/29/24 06:30 03/30/24 05:45 Levothyroxine Sodium 50 Mcg Tablet PO 50 mcg DAILY@0630 LAURA Administration Multi-Ingred Cream/Lotion/Oil/Oint 1 applic 03/28/24 21:00 03/30/24 08:43 Mineral Oil/White Petrolatum Ointment EACH EYE 1 applic Q12HR LAURA Administration Pantoprazole Sodium 40 mg 03/29/24 09:00 03/30/24 08:43 Pantoprazole Sodium Iv 40 Mg Vial IV PUSH 40 mg QAM LAURA Administration Perflutren Lipid Microsphere 0 ml 03/28/24 14:34 Perflutren Lipid Microspheres 1.5 Ml Vial Diluted To 10 Ml Total Volume IV PUSH 03/31/24 14:34 ONCE PRN adequate visualization Protocol Polyethylene Glycol 17 gm 03/30/24 09:00 03/30/24 08:43 Polyethylene Glycol 3350 17 Gm Powd.Pack PO 17 gm QAM LAURA Administration Senna/Docusate Sodium 1 tab 03/30/24 09:00 03/30/24 08:43 Senna/Docusate Sodium Tablet PO 1 tab Q12HR LAURA Administration Sodium Chloride 10 ml 03/28/24 14:00 03/30/24 05:45 Saline Lock Flush IV PUSH 10 ml Q8HR LAURA Administration Sodium Chloride 10 ml 03/28/24 14:00 03/30/24 05:45 Central Line Flush IV PUSH 10 ml Q8HR LAURA Administration Sodium Chloride 10 ml 03/28/24 12:56 Central Line Flush IV PUSH PRN PRN with TPN bag changes Sodium Chloride 20 ml 03/28/24 12:56 Central Line Flush IV PUSH PRN PRN after blood draws Vancomycin HCl 1 each 03/28/24 14:45 Vancomycin For Acute Kidney Injury IVPB PRN PRN Vancomycin Protocol Radiology Results: ITS Impressions Abdomen X-Ray 03/28/24 10:10 IMPRESSION: 1. Nasogastric tube tip in the stomach. Head CT 03/28/24 10:49 Impression: No intracranial hemorrhage, mass, or acute infarct. Atrophy and chronic white matter changes, as above. Renal Ultrasound 03/28/24 15:15 IMPRESSION: 1. Mild right hydronephrosis. The previously seen stones in the right renal collecting system are no longer visualized patient concern for progression into the ureter with secondary obstruction. The stones were visible on the prior CT but not on intervening upper GI study performed on 03/04/2024 suggesting may be difficult to identify by a radiolucent would consider renal stone CT for further evaluation. Abdomen/Pelvis CT 03/29/24 09:39 IMPRESSION: 1. Mild bilateral hydronephrosis without evident urolithiasis. This is likely related to the wall thickening in the decompressed bladder itself likely related to cystitis. 2. Consolidation at the bilateral lower lungs suspicious for combination of atelectasis and pneumonia. 3. Persistent 7.5 cm ball of stool at the rectum with mild wall thickening and minimal perirectal stranding which can be seen with constipation/fecal impaction and secondary stercoral colitis. Chest X-Ray 03/30/24 06:47 IMPRESSION: 1. Opacities in the bilateral lower lung zones consistent with atelectasis and/or pneumonia and small left pleural effusion. 2. Cardiomegaly. 3. Unchanged left upper extremity PICC line with tip folded back upon itself in the right brachiocephalic vein. Labs Labs: Laboratory Results - last 24 hr 03/29/24 03/29/24 03/29/24 11:46 15:03 17:56 WBC RBC Hgb Hct MCV MCH MCHC RDW Plt Count MPV Immature Gran % (Auto) Neut % (Auto) Lymph % (Auto) [place] % (Auto) Eos % (Auto) Baso % (Auto) Lymph # (Auto) [place] # (Auto) Eos # (Auto) Baso # (Auto) Abs Immat Gran (auto) Absolute Neuts (auto) Absolute Nucleated RBC Nucleated RBC % Puncture Site ABG pH ABG pCO2 ABG pO2 ABG PO2/FiO2 Ratio ABG HCO3 ABG O2 Saturation ABG O2 Content ABG Base Excess A-a Gradient Oxyhemoglobin Carboxyhemoglobin Methemoglobin Reduced Hemoglobin Total Hemoglobin O2 Delivery Device O2 Liters/Min Minute Volume Vent Rate Vent Mode FiO2 Tidal Volume PEEP Peak Inspir Pressure Pressure Support Sodium Potassium Chloride Carbon Dioxide Anion Gap BUN Creatinine Estim Creat Clear Calc Estimated GFR Glucose POC Capillary Glucose 121 H 123 H Lactic Acid Calcium Phosphorus Magnesium Total Bilirubin AST ALT Alkaline Phosphatase Total Protein Albumin Random Vancomycin 12.4 03/30/24 03/30/24 03/30/24 00:18 04:26 05:12 WBC 7.9 RBC 3.08 L Hgb 8.7 L Hct 28.3 L MCV 91.9 MCH 28.2 MCHC 30.7 L RDW 16.8 H Plt Count 123 L MPV 10.3 Immature Gran % (Auto) 0.5 Neut % (Auto) 76.2 H Lymph % (Auto) 10.4 L [place] % (Auto) 10.8 H Eos % (Auto) 1.8 Baso % (Auto) 0.3 Lymph # (Auto) 0.82 L [place] # (Auto) 0.9 H Eos # (Auto) 0.1 Baso # (Auto) 0.0 Abs Immat Gran (auto) 0.04 H Absolute Neuts (auto) 6.0 Absolute Nucleated RBC 0.000 Nucleated RBC % 0.0 Puncture Site Right radial ABG pH 7.429 ABG pCO2 53.1 H ABG pO2 99.3 ABG PO2/FiO2 Ratio 2.48 ABG HCO3 34.4 H ABG O2 Saturation 97.6 ABG O2 Content 13.4 L ABG Base Excess 8.8 A-a Gradient 124.8 Oxyhemoglobin 96.9 Carboxyhemoglobin 0.1 Methemoglobin 0.3 Reduced Hemoglobin 2.7 Total Hemoglobin 9.7 L O2 Delivery Device Ventilator O2 Liters/Min Not Reportable Minute Volume Not Reportable Vent Rate 18 Vent Mode Cmv FiO2 40 Tidal Volume 500 PEEP 8 Peak Inspir Pressure Not Reportable Pressure Support Not Reportable Sodium 137 Potassium 3.9 Chloride 98 Carbon Dioxide 33 H Anion Gap 6 BUN 50 H Creatinine 1.74 H Estim Creat Clear Calc 43 Estimated GFR 38 L Glucose 148 H POC Capillary Glucose 144 H Lactic Acid 0.8 Calcium 9.2 Phosphorus 3.0 Magnesium 2.0 Total Bilirubin 0.8 AST 16 L ALT 11 Alkaline Phosphatase 50 Total Protein 6.0 L Albumin 3.1 L Random Vancomycin
[2024-03-30 11:50] LABS: Glucose Point of Care 157 mg/dl (65-105)
[2024-03-30] MEDS: dexmedeTOMIDine 400 MCG/100 ML 400 MCG/100 ML BAG 6.21 MCG IV CONT (13:57)
[2024-03-30 17:48] LABS: Glucose Point of Care 136 mg/dl (65-105)
[2024-03-30] MEDS: VANCOMYCIN 1,500 MG/NS 500 ML 1,500 MG/500 ML BAG 100 MG IVPB (18:35)
[2024-03-30] MEDS: hydrALAZINE HCL 20 MG/ML VIAL 10 MG IV PUSH (20:55)
[2024-03-30] MEDS: dexmedeTOMIDine 400 MCG/100 ML 400 MCG/100 ML BAG 15.53 MCG IV CONT (22:00)
[2024-03-31] VITALS (28 sets, daily range): BP systolic 115–151; BP diastolic 67–96; PULSE 73–99; RESP 11–28; TEMP 35.9–37.6; O2SAT 86–99
[2024-03-31 00:36] LABS: Glucose Point of Care 181 mg/dl (65-105)
[2024-03-31] MEDS: LEVALBUTEROL NEB 1.25 MG/3 ML INHALATION ×4 (02:33→21:02)
[2024-03-31] MEDS: IPRATROPIUM BR 0.02% INH SOLN 0.5 MG/2.5 ML VIAL INHALATION ×4 (02:33→21:02)
[2024-03-31] MEDS: dexmedeTOMIDine 400 MCG/100 ML 400 MCG/100 ML BAG 15.53 MCG IV CONT (04:00)
[2024-03-31 04:37] LABS: Basophils Percent Auto 0.2 % (0.2-1.2); Eosinophils Absolute Auto 0.1 K/mm3 (0-0.3); Eosinophils Percent Auto 1.1 % (0-4.4); Hematocrit 32.1 % (42.0-52.0); Hemoglobin 9.9 g/dL (14.0-18.0); Immature Granulocyte Absolute 0.04 K/mm3 (0.00-0.031); Immature Granulocyte Percent A 0.4 % (0-0.5); Lymphocytes Percent Auto 10.9 % (18.3-44.2); Mean Corpuscular HGB Conc 30.8 g/dl (32-36); Mean Corpuscular Hemoglobin 28.1 pg (26-34); Mean Corpuscular Volume 91.2 fl (80-100); Mean Platelet Volume 10.4 fl (7.4-10.4); Monocytes Absolute Auto 0.9 K/mm3 (0.1-0.6); Monocytes Percent Auto 9.4 % (2.6-8.5); Neutrophils Absolute Auto 7.1 K/mm3 (1.3-6.7); Platelet Count Result 119 k/mm3 (150-375); Red Blood Count 3.52 M/mm3 (4.6-6.20); Red Cell Distribution Width 16.5 % (11.5-14.5); White Blood Count 9.2 K/mm3 (4.5-10.0)
[2024-03-31 04:52] LABS: Alanine Aminotransferase 15 U/L (6-50); Albumin Level 3.3 g/dL (3.5-5.1); Alkaline Phosphatase 56 U/L (38-126); Anion Gap 8 mmol/L (4-12); Aspartate Amino Transferase 25 U/L (17-59); Bilirubin,Total 0.8 mg/dL (0.2-1.3); Blood Urea Nitrogen 53 mg/dL (9-20); Calcium 9.4 mg/dL (8.4-10.2); Carbon Dioxide 29 mmol/L (22-30); Chloride 101 mmol/L (98-107); Estimated CRCL calculation 63 ml/min; Estimated Glomerular Filt Rate 60; Glucose 187 mg/dL (65-110); Phosphorus 2.6 mg/dL (2.5-4.5); Potassium 4.3 mmol/L (3.4-5.0); Sodium 138 mmol/L (137-145)
[2024-03-31 05:02] LABS: Alveolar/Arterial O2 Gradient 145.4 mmHg; Base Excess ABG 3.3 mEq/l (+/-2.0); Carboxyhemoglobin 0.4 % THb (0-2.0); Fractional Inspired Oxygen 40 %; HCO3 ABG 27.8 mEq/l (22.0-26.0); Methemoglobin ABG 0.1 %THb (0-1.5); Oxygen Content ABG 15.1 %vol (16.0-22.0); Oxygen Saturation ABG 97.2 % (95.0-100.0); Oxyhemoglobin 96.9 % THb (90.0-100.0); PO2 ABG 91.5 mmHg (80.0-100.0); PO2 FiO2 Ratio Arterial Blood 2.29 %; Reduced Hemoglobin 2.6 %THb (0-5.0); pH ABG 7.439 (7.350-7.450)
[2024-03-31 05:59] LABS: Device VENTILATOR; Modified Allen's Test Pass; Site Drawn RIGHT RADIAL
[2024-03-31 06:00] LABS: Arterial Blood Gas PEEP 8 cmH2O
[2024-03-31 06:01] LABS: Arterial Blood Gas Tidal Volume 500 ml; Arterial Blood Gas Vent Mode CMV; Arterial Blood Gas Ventilator rate 18 /MIN
[2024-03-31] MEDS: CENTRAL LINE FLUSH 10 ML IV PUSH (06:36)
[2024-03-31] MEDS: LEVOTHYROXINE SODIUM 50 MCG TABLET PO (06:37)
[2024-03-31] MEDS: SALINE LOCK FLUSH 10 ML IV PUSH (06:37)
[2024-03-31] MEDS: APIXABAN 5 MG TABLET PO (08:22)
[2024-03-31] MEDS: PANTOPRAZOLE SODIUM IV 40 MG VIAL IV PUSH (08:22)
[2024-03-31] MEDS: METOCLOPRAMIDE HCL INJ 10 MG/2 ML VIAL IV PUSH ×3 (08:22→17:58)
[2024-03-31] MEDS: SENNA/DOCUSATE SODIUM TABLET 1 TAB PO ×2 (08:22→21:26)
[2024-03-31] MEDS: MINERAL OIL/WHITE PETROLATUM OINTMENT 1 APPLIC EACH EYE (08:23)
[2024-03-31] MEDS: polyethylene glycoL 3350 17 GM POWD.PACK PO (08:24)
[2024-03-31] MEDS: cefTRIAXone 2 GM/NS 100 ML 2 GM/100 ML BAG IVPB (08:25)
[2024-03-31] MEDS: DOXYCYCLINE 100 MG/NS 100 ML 100 MG/100 ML BAG IVPB ×2 (08:25→21:26)
--- NOTE | 2024-03-31 09:49 | PM.IMPN ---
Progress Note: A&P Assessment and Plan (1) Acute respiratory failure with hypercapnia: Code(s): J96.02 - Acute respiratory failure with hypercapnia Status: Acute Assessment and Plan: 01/25:Patient presented with respiratory distress, shortness of breath, altered mental status -initial ABG showed pH of 7.19 and pCO2 of 117, patient was obtunded, BiPAP was not an option due to altered mental status so that patient was intubated in the ER -etiology: COPD exacerbation, hypercapnic respiratory failure, pneumonia, obesity hypoventilation syndrome, obstructive sleep apnea may also be playing a role -continue CMV mode of ventilation, peep of 8, 40% FiO2 - -contain Xopenex and Atrovent nebs -sedated with fentanyl and Versed infusion, maintain RASS of 0 to -2, daily SBT and SAT, asked the bedside RN to trend down the sedation and wake the patient up so we can place him on SBT and SAT. - RSV, COVID and influenza are negative -03/30: I have asked the bedside RN to discontinue sedation, once he is more awake will place him on SBT and evaluate for extubation. Patient may require Precedex if he is agitated or uncomfortable. chest x-ray and ABGs reviewed, 03/31 Plan is to continue with vent for now and extubate when stable. (2) Shock: Code(s): R57.9 - Shock, unspecified Status: Acute Assessment and Plan: Patient presented with hypotension, anemia related to sepsis/infection/hypovolemia, UTI -patient given 2 L IV fluid bolus in the ER -03/28: left-sided PICC line was inserted in the ER -off Levophed, continue maintain MAP > 65 mmHg wall show adequate end organ perfusion -urine output has been good, improving creatinine, - monitor urine output and renal function -continue ceftriaxone, add vancomycin and doxycycline (03/28) -MRSA screen was positive -03/28: Preliminary blood cultures are negative -03/28: urine cultures with no growth -03/28: Sputum culture -growth of for normal oropharyngeal terence 03/31 blood pressure and vital signs are stable now, will continue with current treatment and antibiotics. (3) Acute worsening of stage 3 chronic kidney disease: Code(s): N18.30 - Chronic kidney disease, stage 3 unspecified Status: Acute Assessment and Plan: Patient has history of chronic kidney disease stage 3 (baseline creatinine seems to be 1.4-1.8). Likely related to hypotension from shock, infection, UTI, hypovolemia -patient presented with a creatinine of 2.67 this admission -adequately fluid-resuscitated negative blood cultures 03/29/2024 only -status post IV fluids -used albumin for additional intravascular volume repletion -continue to monitor urine output, renal function electrolytes -mild hydronephrosis on renal ultrasound was noted, -appreciate urology evaluation recommendations. They requested a CT scan of the abdomen and pelvis to rule out renal stones. CT scan of the abdomen and pelvis as below, no further intervention 03/29: CT abdomen and pelvis IMPRESSION: 1. Mild bilateral hydronephrosis without evident urolithiasis. This is likely related to the wall thickening in the decompressed bladder itself likely related to cystitis. 2. Consolidation at the bilateral lower lungs suspicious for combination of atelectasis and pneumonia. 3. Persistent 7.5 cm ball of stool at the rectum with mild wall thickening and minimal perirectal stranding which can be seen with constipation/fecal impaction and secondary stercoral colitis. (4) Atrial fibrillation: Qualifiers: Atrial fibrillation type: unspecified Qualified Code(s): I48.91 - Unspecified atrial fibrillation Code(s): I48.91 - Unspecified atrial fibrillation Status: Chronic Assessment and Plan: Patient has a history of atrial fibrillation on Eliquis and the nursing -currently was in AFib, rate controlled -continue Eliquis (5) Chronic obstructive pulmonary disease: Code(s): J44.9 - Chronic obstructive pulmonary disease, unspecified Status: Acute Assessment and Plan: History of COPD, on 4 L home oxygen -continue antibiotics, bronchodilator -will hold steroids as patient does not have any wheezing (6) Diabetes mellitus: Code(s): E11.9 - Type 2 diabetes mellitus without complications Status: Chronic Assessment and Plan: Accu-Cheks and sliding scale insulin (7) Heart failure with preserved ejection fraction: Code(s): I50.30 - Unspecified diastolic (congestive) heart failure Status: Acute Assessment and Plan: ProBNP was 9230 -troponin was 0.042, 0.122 -chest x-ray does not look fluid volume overloaded -continue to monitor 03/29/2024: Echocardiogram Summary 1. Complete two-dimensional, color flow and Doppler transthoracic echocardiogram is performed. 2. Left ventricular chamber dimension is moderately enlarged. 3. Left ventricular systolic function is moderately globally reduced, estimated at 40-45%. 4. The left ventricular diastolic function is normal. 5. E/e' 9 is minimally elevated. 6. Left atrial chamber dimension is moderately enlarged. 7. Right atrial chamber dimension is moderately enlarged. 8. There is mild aortic valve sclerosis. 9. There is mild mitral valve regurgitation. 10. There is mild to moderate tricuspid valve regurgitation. 11. Severe pulmonary hypertension, estimated pulmonary arterial systolic pressure is 64 mmHg. (8) Hypothyroidism: Code(s): E03.9 - Hypothyroidism, unspecified Status: Acute Assessment and Plan: Continue levothyroxine (9) Urinary tract infection: Code(s): N39.0 - Urinary tract infection, site not specified Status: Acute Assessment and Plan: UA was reflective of UTI, -Continue antibiotics as above, urine cultures have been obtained (10) Fecal impaction: Code(s): K56.41 - Fecal impaction Status: Acute Assessment and Plan: Fecal impaction with stool ball at the rectum as seen on the CT scan of the abdomen and pelvis as above -continue MiraLax and docusate with senna -will administer soapsuds enema today, Plan DVT prophylaxis: Eliquis Stress ulcer prophylaxis: Protonix Nutrition: Continue tube feeds. Subjective Date/time seen: 03/31/24 09:49 Interval history: Patient was seen during the morning rounds today. Patient is in ICU on vent. Remains intubated. no new overnight complaints. Review of Systems Review of Systems: ROS unobtainable: Yes unobtainable due to endotracheal tube, unobtainable due to medical condition and unobtainable due to mental status Exam Narrative: General: Patient intubated, sedated, in no acute distress HEENT:? Pupils are pinpoint but equal and reactive, sclerae ischemia, ETT in place Neck:? Supple, thick neck Respiratory:? Coarse breath sounds bilaterally, decreased at bases, no wheezing, adequate air entry Cardiac:? Irregularly irregular, tachycardia Abdomen:? Says soft, nontender, nondistended, morbidly obese, hypoactive bowel sound Extremities:? Trace bilateral lower extremity edema, pitting edema on dorsum of the feet bilaterally. Palpable pedal pulses Neuro:? Patient is intubated, sedated, does not open his eyes or follow simple commands. Does withdraw to pain Skin:? Left big toe nail seems to have, off with residual clot Psych:? Unable to assess at this time Objective Data Vital Signs Vital Signs: Vital Signs - 24 hr 03/30/24 10:00 03/30/24 10:00 03/30/24 10:00 Temperature Pulse Rate 100 88 88 Respiratory Rate 21 H 20 20 Blood Pressure 140/60 Pulse Oximetry 94 Oxygen Delivery Fraction of Inspired Oxygen 03/30/24 11:07 03/30/24 12:00 03/30/24 12:00 Temperature 37.2 C Pulse Rate 96 96 87 Respiratory Rate 18 18 Blood Pressure 116/68 Pulse Oximetry 91 95 Oxygen Delivery Mechanical Ventilation Fraction of Inspired Oxygen 40 03/30/24 12:00 03/30/24 12:00 03/30/24 13:23 Temperature Pulse Rate 87 100 Respiratory Rate 18 23 H Blood Pressure Pulse Oximetry Oxygen Delivery Fraction of Inspired Oxygen 40 03/30/24 13:29 03/30/24 13:30 03/30/24 13:57 Temperature Pulse Rate 90 98 108 H Respiratory Rate 23 H 18 Blood Pressure Pulse Oximetry 98 Oxygen Delivery Mechanical Ventilation Fraction of Inspired Oxygen 40 03/30/24 14:00 03/30/24 14:00 03/30/24 15:01 Temperature Pulse Rate 98 98 98 Respiratory Rate 18 18 18 Blood Pressure 142/62 H Pulse Oximetry 98 Oxygen Delivery Fraction of Inspired Oxygen 03/30/24 15:03 03/30/24 16:00 03/30/24 16:00 Temperature 37.1 C Pulse Rate 99 99 Respiratory Rate 18 18 Blood Pressure 120/94 H Pulse Oximetry 97 Oxygen Delivery Fraction of Inspired Oxygen 40 03/30/24 16:35 03/30/24 17:13 03/30/24 18:00 Temperature Pulse Rate 82 73 85 Respiratory Rate 18 18 Blood Pressure 143/97 H Pulse Oximetry 99 98 Oxygen Delivery Mechanical Ventilation Fraction of Inspired Oxygen 40 03/30/24 18:11 03/30/24 20:00 03/30/24 20:00 Temperature 36.8 C Pulse Rate 84 77 77 Respiratory Rate 18 22 H 22 H Blood Pressure 153/104 H Pulse Oximetry 97 Oxygen Delivery Fraction of Inspired Oxygen 03/30/24 20:00 03/30/24 20:00 03/30/24 20:00 Temperature Pulse Rate 80 Respiratory Rate Blood Pressure Pulse Oximetry Oxygen Delivery Mechanical Ventilation Fraction of Inspired Oxygen 40 40 03/30/24 20:23 03/30/24 20:23 03/30/24 20:28 Temperature Pulse Rate 77 77 79 Respiratory Rate 20 19 Blood Pressure Pulse Oximetry 99 Oxygen Delivery Mechanical Ventilation Fraction of Inspired Oxygen 40 03/30/24 22:00 03/30/24 22:00 03/30/24 22:00 Temperature Pulse Rate 105 H 105 H 105 H Respiratory Rate 28 H 28 H 26 H Blood Pressure 138/115 H Pulse Oximetry 100 Oxygen Delivery Fraction of Inspired Oxygen 03/30/24 22:00 03/30/24 23:15 03/31/24 00:00 Temperature Pulse Rate 105 H 82 95 Respiratory Rate 21 H Blood Pressure Pulse Oximetry 100 Oxygen Delivery Mechanical Ventilation Fraction of Inspired Oxygen 40 03/31/24 00:00 03/31/24 00:00 03/31/24 00:00 Temperature 37.6 C H Pulse Rate 95 99 Respiratory Rate 21 H Blood Pressure 132/79 Pulse Oximetry 97 Oxygen Delivery Mechanical Ventilation Fraction of Inspired Oxygen 40 03/31/24 00:00 03/31/24 02:00 03/31/24 02:00 Temperature Pulse Rate 85 85 Respiratory Rate 27 H Blood Pressure 136/88 Pulse Oximetry 97 Oxygen Delivery Fraction of Inspired Oxygen 40 03/31/24 02:00 03/31/24 02:34 03/31/24 02:34 Temperature Pulse Rate 85 93 93 Respiratory Rate 27 H 27 H Blood Pressure Pulse Oximetry 97 Oxygen Delivery Mechanical Ventilation Fraction of Inspired Oxygen 40 03/31/24 04:00 03/31/24 04:00 03/31/24 04:00 Temperature 37.6 C Pulse Rate 90 90 90 Respiratory Rate 23 H 23 H 23 H Blood Pressure 147/90 H Pulse Oximetry 95 Oxygen Delivery Fraction of Inspired Oxygen 03/31/24 04:00 03/31/24 04:00 03/31/24 04:00 Temperature Pulse Rate 90 Respiratory Rate Blood Pressure Pulse Oximetry Oxygen Delivery Mechanical Ventilation Fraction of Inspired Oxygen 40 40 03/31/24 04:40 03/31/24 06:00 03/31/24 06:00 Temperature Pulse Rate 81 91 91 Respiratory Rate 23 H Blood Pressure Pulse Oximetry 97 Oxygen Delivery Mechanical Ventilation Fraction of Inspired Oxygen 40 03/31/24 06:00 03/31/24 07:00 03/31/24 08:00 Temperature Pulse Rate 91 80 78 Respiratory Rate 23 H 25 H 25 H Blood Pressure 149/86 H Pulse Oximetry 99 Oxygen Delivery Fraction of Inspired Oxygen 03/31/24 08:00 03/31/24 08:00 03/31/24 08:00 Temperature 36.2 C L Pulse Rate 78 94 Respiratory Rate 25 H 18 Blood Pressure 151/92 H Pulse Oximetry 98 98 Oxygen Delivery Mechanical Ventilation Fraction of Inspired Oxygen 40 40 03/31/24 08:00 03/31/24 08:45 03/31/24 09:05 Temperature Pulse Rate 75 94 92 Respiratory Rate 18 23 H Blood Pressure Pulse Oximetry Oxygen Delivery Fraction of Inspired Oxygen 03/31/24 09:05 03/31/24 09:23 Temperature Pulse Rate 80 84 Respiratory Rate 17 Blood Pressure Pulse Oximetry 96 Oxygen Delivery Mechanical Ventilation Fraction of Inspired Oxygen 40 Intake/Output Intake/Output: Intake & Output 03/28/24 03/29/24 03/30/24 03/31/24 23:59 23:59 23:59 23:59 Intake Total 2755.1 908.0 1615.7 1106.2 Output Total 2250 2550 1825 1650 Balance 505.1 -1642.0 -209.3 -543.8 Meds/Results Medications: Active Medications Generic Name Dose Route Start Last Admin Trade Name Freq PRN Reason Stop Dose Admin Acetaminophen 650 mg 03/30/24 20:43 Acetaminophen Elixir 325 Mg/10.15 Ml Udc PO Q6H PRN Mild Pain (1-3) or Fever Apixaban 5 mg 03/29/24 09:00 03/31/24 08:22 Apixaban 5 Mg Tablet PO 5 mg DAILY LAURA Administration Bisacodyl 10 mg 03/28/24 19:00 Bisacodyl 10 Mg Suppository RECTAL DAILY PRN Constipation Dextrose 12.5 gm 03/28/24 13:45 Dextrose 50% 25 Gm/50 Ml Syringe IV PUSH PRN PRN Hypoglycemia Protocol Glucagon 1 mg 03/28/24 13:45 Glucagon For Inj 1 Mg Vial IM PRN PRN Hypoglycemia Protocol Glucose 15 gm 03/28/24 13:45 Glucose Oral Gel 15 Gm Of Glucse In 37.5 Gm Tube PO PRN PRN Hypoglycemia Protocol Hydralazine HCl 10 mg 03/30/24 20:43 03/30/24 20:55 Hydralazine Hcl 20 Mg/Ml Vial IV PUSH 10 mg Q4H PRN Administration Blood Pressure - High Dextrose 1,000 mls @ 100 mls/hr 03/28/24 13:45 Dextrose 5% 1,000 Ml IVPB PRN PRN Hypoglycemia Protocol Ceftriaxone Sodium 2 gm in 100 mls @ 200 mls/hr 03/29/24 09:00 03/31/24 08:25 Rocephin 2 Gm/Ns 100 Ml IVPB 04/03/24 08:59 200 mls/hr Q24H LAURA Administration Doxycycline Hyclate 100 mg in 100 mls @ 100 mls/hr 03/28/24 13:50 03/31/24 08:25 Vibramycin 100 Mg/Ns 100 Ml IVPB 04/02/24 13:49 100 mls/hr Q12HR LAURA Administration Dexmedetomidine HCl 400 mcg in 100 mls @ 12.42 mls/hr 03/30/24 13:50 03/31/24 08:45 Precedex 400 Mcg/100 Ml IV CONT 0.3 mcg/kg/hr .Q8H4M LAURA 9.32 mls/hr Titration Protocol 0.4 MCG/KG/HR Insulin Aspart 3 - 6 units 03/28/24 18:00 03/31/24 06:36 Insulin Aspart (*Bkc) 100 Units/Ml SUB-Q Not Given Q6HR [facility] Protocol Ipratropium [place] 0.5 mg 03/28/24 14:00 03/31/24 09:01 Ipratropium Br 0.02% Inh Soln 0.5 Mg/2.5 Ml Vial INHALATION 0.5 mg Q6HRT LAURA Administration Levalbuterol HCl 1.25 mg 03/28/24 14:00 03/31/24 09:02 Levalbuterol Neb 1.25 Mg/3 Ml INHALATION 1.25 mg Q6HRT LAURA Administration Levothyroxine Sodium 50 mcg 03/29/24 06:30 03/31/24 06:37 Levothyroxine Sodium 50 Mcg Tablet PO 50 mcg DAILY@0630 LAURA Administration Metoclopramide HCl 10 mg 03/31/24 07:36 03/31/24 08:22 Metoclopramide Hcl Inj 10 Mg/2 Ml Vial IV PUSH 04/01/24 00:01 10 mg Q6HR LAURA Administration Multi-Ingred Cream/Lotion/Oil/Oint 1 applic 03/28/24 21:00 03/31/24 08:23 Mineral Oil/White Petrolatum Ointment EACH EYE 1 applic Q12HR LAURA Administration Pantoprazole Sodium 40 mg 03/29/24 09:00 03/31/24 08:22 Pantoprazole Sodium Iv 40 Mg Vial IV PUSH 40 mg QAM LAURA Administration Perflutren Lipid Microsphere 0 ml 03/28/24 14:34 Perflutren Lipid Microspheres 1.5 Ml Vial Diluted To 10 Ml Total Volume IV PUSH 03/31/24 14:34 ONCE PRN adequate visualization Protocol Polyethylene Glycol 17 gm 03/30/24 09:00 03/31/24 08:24 Polyethylene Glycol 3350 17 Gm Powd.Pack PO 17 gm QAM LAURA Administration Senna/Docusate Sodium 1 tab 03/30/24 09:00 03/31/24 08:22 Senna/Docusate Sodium Tablet PO 1 tab Q12HR LAURA Administration Sodium Chloride 10 ml 03/28/24 14:00 03/31/24 06:37 Saline Lock Flush IV PUSH 10 ml Q8HR LAURA Administration Sodium Chloride 10 ml 03/28/24 14:00 03/31/24 06:36 Central Line Flush IV PUSH 10 ml Q8HR LAURA Administration Sodium Chloride 10 ml 03/28/24 12:56 Central Line Flush IV PUSH PRN PRN with TPN bag changes Sodium Chloride 20 ml 03/28/24 12:56 Central Line Flush IV PUSH PRN PRN after blood draws Radiology Results: ITS Impressions Abdomen X-Ray 03/28/24 10:10 IMPRESSION: 1. Nasogastric tube tip in the stomach. Head CT 03/28/24 10:49 Impression: No intracranial hemorrhage, mass, or acute infarct. Atrophy and chronic white matter changes, as above. Renal Ultrasound 03/28/24 15:15 IMPRESSION: 1. Mild right hydronephrosis. The previously seen stones in the right renal collecting system are no longer visualized patient concern for progression into the ureter with secondary obstruction. The stones were visible on the prior CT but not on intervening upper GI study performed on 03/04/2024 suggesting may be difficult to identify by a radiolucent would consider renal stone CT for further evaluation. Abdomen/Pelvis CT 03/29/24 09:39 IMPRESSION: 1. Mild bilateral hydronephrosis without evident urolithiasis. This is likely related to the wall thickening in the decompressed bladder itself likely related to cystitis. 2. Consolidation at the bilateral lower lungs suspicious for combination of atelectasis and pneumonia. 3. Persistent 7.5 cm ball of stool at the rectum with mild wall thickening and minimal perirectal stranding which can be seen with constipation/fecal impaction and secondary stercoral colitis. Chest X-Ray 03/31/24 06:15 IMPRESSION: Small left-sided pleural effusion. Mild pulmonary vascular congestion. Left upper extremity PICC tip is redemonstrated coursing cranially and then back upon itself into the right brachiocephalic vein, towards the right internal jugular vein. This configuration is unchanged dating back to 03/29/2024. Query its functionality. Endotracheal tube and nasogastric tube in good position. Labs Labs: Laboratory Results - last 24 hr 03/30/24 03/30/24 03/30/24 11:33 17:22 17:33 WBC RBC Hgb Hct MCV MCH MCHC RDW Plt Count MPV Immature Gran % (Auto) Neut % (Auto) Lymph % (Auto) [place] % (Auto) Eos % (Auto) Baso % (Auto) Lymph # (Auto) [place] # (Auto) Eos # (Auto) Baso # (Auto) Abs Immat Gran (auto) Absolute Neuts (auto) Absolute Nucleated RBC Nucleated RBC % Puncture Site ABG pH ABG pCO2 ABG pO2 ABG PO2/FiO2 Ratio ABG HCO3 ABG O2 Saturation ABG O2 Content ABG Base Excess A-a Gradient Oxyhemoglobin Carboxyhemoglobin Methemoglobin Reduced Hemoglobin Total Hemoglobin O2 Delivery Device O2 Liters/Min Minute Volume Vent Rate Vent Mode FiO2 Tidal Volume PEEP Peak Inspir Pressure Pressure Support Sodium Potassium Chloride Carbon Dioxide Anion Gap BUN Creatinine Estim Creat Clear Calc Estimated GFR Glucose POC Capillary Glucose 157 H 136 H Calcium Phosphorus Magnesium Total Bilirubin AST ALT Alkaline Phosphatase Total Protein Albumin Random Vancomycin 16.0 03/31/24 03/31/24 03/31/24 00:15 04:19 04:39 WBC 9.2 RBC 3.52 L Hgb 9.9 L Hct 32.1 L MCV 91.2 MCH 28.1 MCHC 30.8 L RDW 16.5 H Plt Count 119 L MPV 10.4 Immature Gran % (Auto) 0.4 Neut % (Auto) 78.0 H Lymph % (Auto) 10.9 L [place] % (Auto) 9.4 H Eos % (Auto) 1.1 Baso % (Auto) 0.2 Lymph # (Auto) 1.00 [place] # (Auto) 0.9 H Eos # (Auto) 0.1 Baso # (Auto) 0.0 Abs Immat Gran (auto) 0.04 H Absolute Neuts (auto) 7.1 H Absolute Nucleated RBC 0.000 Nucleated RBC % 0.0 Puncture Site Right radial ABG pH 7.439 ABG pCO2 42.0 ABG pO2 91.5 ABG PO2/FiO2 Ratio 2.29 ABG HCO3 27.8 H ABG O2 Saturation 97.2 ABG O2 Content 15.1 L ABG Base Excess 3.3 A-a Gradient 145.4 Oxyhemoglobin 96.9 Carboxyhemoglobin 0.4 Methemoglobin 0.1 Reduced Hemoglobin 2.6 Total Hemoglobin 11.0 L O2 Delivery Device Ventilator O2 Liters/Min Not Reportable Minute Volume Not Reportable Vent Rate 18 Vent Mode Cmv FiO2 40 Tidal Volume 500 PEEP 8 Peak Inspir Pressure Not Reportable Pressure Support Not Reportable Sodium 138 Potassium 4.3 Chloride 101 Carbon Dioxide 29 Anion Gap 8 BUN 53 H Creatinine 1.18 Estim Creat Clear Calc 63 Estimated GFR 60 Glucose 187 H POC Capillary Glucose 181 H Calcium 9.4 Phosphorus 2.6 Magnesium 2.0 Total Bilirubin 0.8 AST 25 ALT 15 Alkaline Phosphatase 56 Total Protein 7.0 Albumin 3.3 L Random Vancomycin Quality VTE Prophylaxis VTE prophylaxis: mechanical ordered and pharmacologic ordered
--- NOTE | 2024-03-31 09:53 | P.PNINT_ITS ---
Progress Note: A&P Assessment and Plan (1) Acute respiratory failure with hypercapnia: Code(s): J96.02 - Acute respiratory failure with hypercapnia Status: Acute Assessment and Plan: 01/25:Patient presented with respiratory distress, shortness of breath, altered mental status -initial ABG showed pH of 7.19 and pCO2 of 117, patient was obtunded, BiPAP was not an option due to altered mental status so that patient was intubated in the ER -etiology: COPD exacerbation, hypercapnic respiratory failure, pneumonia, obesity hypoventilation syndrome, obstructive sleep apnea may also be playing a role -continue CMV mode of ventilation, peep of 8, 40% FiO2 -contain Xopenex and Atrovent nebs -sedated with fentanyl and Versed infusion, maintain RASS of 0 to -2, daily SBT and SAT, asked the bedside RN to trend down the sedation and wake the patient up so we can place him on SBT and SAT. - RSV, COVID and influenza are negative -03/31: I have asked the bedside RN to wean off Precedex, once he is more awake will place him on SBT and evaluate for extubation. (2) Shock: Code(s): R57.9 - Shock, unspecified Status: Acute Assessment and Plan: Patient presented with hypotension, anemia related to sepsis/infection/hypovolemia, UTI -patient given 2 L IV fluid bolus in the ER -03/28: left-sided PICC line was inserted in the ER -off Levophed, continue maintain MAP > 65 mmHg wall show adequate end organ perfusion -urine output has been good, creatinine has normalized - monitor urine output and renal function -continue ceftriaxone, and doxycycline (03/28) 03/31: Discontinue vancomycin Negative so -MRSA screen was positive -03/28: Preliminary blood cultures are negative -03/28: urine cultures with no growth -03/28: Sputum culture -growth of for normal oropharyngeal terence (3) Acute worsening of stage 3 chronic kidney disease: Code(s): N18.30 - Chronic kidney disease, stage 3 unspecified Status: Acute Assessment and Plan: Patient has history of chronic kidney disease stage 3 (baseline creatinine seems to be 1.4-1.8). Likely related to hypotension from shock, infection, UTI, hypovolemia -patient presented with a creatinine of 2.67 this admission -adequately fluid-resuscitated negative blood cultures 03/29/2024 only -status post IV fluids -used albumin for additional intravascular volume repletion -continue to monitor urine output, renal function electrolytes -mild hydronephrosis on renal ultrasound was noted, -appreciate urology evaluation recommendations. They requested a CT scan of the abdomen and pelvis to rule out renal stones. CT scan of the abdomen and pelvis as below, no further intervention 03/29: CT abdomen and pelvis IMPRESSION: 1. Mild bilateral hydronephrosis without evident urolithiasis. This is likely related to the wall thickening in the decompressed bladder itself likely related to cystitis. 2. Consolidation at the bilateral lower lungs suspicious for combination of atelectasis and pneumonia. 3. Persistent 7.5 cm ball of stool at the rectum with mild wall thickening and minimal perirectal stranding which can be seen with constipation/fecal impaction and secondary stercoral colitis. (4) Atrial fibrillation: Qualifiers: Atrial fibrillation type: unspecified Qualified Code(s): I48.91 - Unspecified atrial fibrillation Code(s): I48.91 - Unspecified atrial fibrillation Status: Chronic Assessment and Plan: Patient has a history of atrial fibrillation on Eliquis and the nursing -currently was in AFib, rate controlled -continue Eliquis (5) Chronic obstructive pulmonary disease: Code(s): J44.9 - Chronic obstructive pulmonary disease, unspecified Status: Acute Assessment and Plan: History of COPD, on 4 L home oxygen -continue antibiotics, bronchodilator -will hold steroids as patient does not have any wheezing (6) Diabetes mellitus: Code(s): E11.9 - Type 2 diabetes mellitus without complications Status: Chronic Assessment and Plan: Accu-Cheks and sliding scale insulin (7) Heart failure with preserved ejection fraction: Code(s): I50.30 - Unspecified diastolic (congestive) heart failure Status: Acute Assessment and Plan: ProBNP was 9230 -troponin was 0.042, 0.122 -chest x-ray does not look fluid volume overloaded -continue to monitor 03/29/2024: Echocardiogram Summary 1. Complete two-dimensional, color flow and Doppler transthoracic echocardiogram is performed. 2. Left ventricular chamber dimension is moderately enlarged. 3. Left ventricular systolic function is moderately globally reduced, estimated at 40-45%. 4. The left ventricular diastolic function is normal. 5. E/e' 9 is minimally elevated. 6. Left atrial chamber dimension is moderately enlarged. 7. Right atrial chamber dimension is moderately enlarged. 8. There is mild aortic valve sclerosis. 9. There is mild mitral valve regurgitation. 10. There is mild to moderate tricuspid valve regurgitation. 11. Severe pulmonary hypertension, estimated pulmonary arterial systolic pressure is 64 mmHg. (8) Hypothyroidism: Code(s): E03.9 - Hypothyroidism, unspecified Status: Acute Assessment and Plan: Continue levothyroxine (9) Urinary tract infection: Code(s): N39.0 - Urinary tract infection, site not specified Status: Acute Assessment and Plan: UA was reflective of UTI, -Continue antibiotics as above, urine cultures negative so far (10) Fecal impaction: Code(s): K56.41 - Fecal impaction Status: Acute Assessment and Plan: Fecal impaction with stool ball at the rectum as seen on the CT scan of the abdomen and pelvis as above -continue MiraLax and docusate with senna -status post soapsuds enema on 03/30 Plan DVT prophylaxis: Eliquis Stress ulcer prophylaxis: Protonix Nutrition: Continue tube feeds. Code Status: Full code Critical Care Time Spent: 32 minutes Discuss with daughter during rounds, updated her with patient's condition plan of care. I answered all questions. Due to a high probability of clinically significant, life threatening deterioration, the patient required my highest level of preparedness to intervene emergently and I personally spent this critical care time directly and personally managing the patient. This critical care time included obtaining a history; examining the patient; pulse oximetry; ordering and review of studies; arranging urgent treatment with development of a management plan; evaluation of patient's response to treatment; frequent reassessment; and discussions with other providers. It was exclusive of separately billable procedures and treating other patients and teaching time. Please see Assessment and Plan section and the rest of the note for further information on patient assessment and treatment This dictation may have been done utilizing a voice recognition system. Attempts have been made to correct errors. However, there may be uncorrected grammatical, spelling, and recognitions errors present. Subjective Date/time seen: 03/31/24 09:53 Interval history: Reason for consult: Acute hypercapnic respiratory failure, encephalopathy, hypotensive, shock, pneumonia, UTI, acute on chronic kidney disease 03/31/2024: Patient seen and examined the ICU, remains intubated on CMV mode of ventilation, peep of 8, 40% FiO2. On Precedex infusion, does not open his eyes or follow simple commands. Does withdraw to pain. Urine output has been good, creatinine has normalized. Hemodynamically stable, afebrile. Normal leukocytosis Review of Systems Review of Systems: ROS unobtainable: Yes unobtainable due to endotracheal tube, unobtainable due to medical condition and unobtainable due to mental status Exam Narrative: General: Patient intubated, sedated, in no acute distress HEENT:? Pupils are pinpoint but equal and reactive, sclerae ischemia, ETT in place Neck:? Supple, thick neck Respiratory:? Coarse breath sounds bilaterally, decreased at bases, no wheezing, adequate air entry Cardiac:? Irregularly irregular, tachycardia Abdomen:? soft, nontender, nondistended, morbidly obese, hypoactive bowel sound Extremities:? Trace bilateral lower extremity edema, pitting edema on dorsum of the feet bilaterally. Palpable pedal pulses Neuro:? Patient is intubated, sedated, does not open his eyes or follow simple commands. Does withdraw to pain Skin:? Left big toe nail seems to have fallen off Psych:? Unable to assess at this time Objective Data Vital Signs Vital Signs: Vital Signs - 24 hr 03/30/24 10:00 03/30/24 10:03/30/24 10:00 Temperature Pulse Rate 100 88 88 Respiratory Rate 21 H 20 20 Blood Pressure 140/60 Pulse Oximetry 94 Oxygen Delivery Fraction of Inspired Oxygen 03/30/24 11:07 03/30/24 12:00 03/30/24 12:00 Temperature 99 F Pulse Rate 96 96 87 Respiratory Rate 18 18 Blood Pressure 116/68 Pulse Oximetry 91 95 Oxygen Delivery Mechanical Ventilation Fraction of Inspired Oxygen 40 03/30/24 12:00 03/30/24 12:00 03/30/24 13:23 Temperature Pulse Rate 87 100 Respiratory Rate 18 23 H Blood Pressure Pulse Oximetry Oxygen Delivery Fraction of Inspired Oxygen 40 03/30/24 13:29 03/30/24 13:30 03/30/24 13:57 Temperature Pulse Rate 90 98 108 H Respiratory Rate 23 H 18 Blood Pressure Pulse Oximetry 98 Oxygen Delivery Mechanical Ventilation Fraction of Inspired Oxygen 40 03/30/24 14:00 03/30/24 14:00 03/30/24 15:01 Temperature Pulse Rate 98 98 98 Respiratory Rate 18 18 18 Blood Pressure 142/62 H Pulse Oximetry 98 Oxygen Delivery Fraction of Inspired Oxygen 03/30/24 15:03 03/30/24 16:00 03/30/24 16:00 Temperature 98.7 F Pulse Rate 99 99 Respiratory Rate 18 18 Blood Pressure 120/94 H Pulse Oximetry 97 Oxygen Delivery Fraction of Inspired Oxygen 40 03/30/24 16:35 03/30/24 17:13 03/30/24 18:00 Temperature Pulse Rate 82 73 85 Respiratory Rate 18 18 Blood Pressure 143/97 H Pulse Oximetry 99 98 Oxygen Delivery Mechanical Ventilation Fraction of Inspired Oxygen 40 03/30/24 18:11 03/30/24 20:00 03/30/24 20:00 Temperature 98.2 F Pulse Rate 84 77 77 Respiratory Rate 18 22 H 22 H Blood Pressure 153/104 H Pulse Oximetry 97 Oxygen Delivery Fraction of Inspired Oxygen 03/30/24 20:00 03/30/24 20:00 03/30/24 20:00 Temperature Pulse Rate 80 Respiratory Rate Blood Pressure Pulse Oximetry Oxygen Delivery Mechanical Ventilation Fraction of Inspired Oxygen 40 40 03/30/24 20:23 03/30/24 20:23 03/30/24 20:28 Temperature Pulse Rate 77 77 79 Respiratory Rate 20 19 Blood Pressure Pulse Oximetry 99 Oxygen Delivery Mechanical Ventilation Fraction of Inspired Oxygen 40 03/30/24 22:00 03/30/24 22:00 03/30/24 22:00 Temperature Pulse Rate 105 H 105 H 105 H Respiratory Rate 28 H 28 H 26 H Blood Pressure 138/115 H Pulse Oximetry 100 Oxygen Delivery Fraction of Inspired Oxygen 03/30/24 22:00 03/30/24 23:15 03/31/24 00:00 Temperature Pulse Rate 105 H 82 95 Respiratory Rate 21 H Blood Pressure Pulse Oximetry 100 Oxygen Delivery Mechanical Ventilation Fraction of Inspired Oxygen 40 03/31/24 00:00 03/31/24 00:00 03/31/24 00:00 Temperature 99.7 F H Pulse Rate 95 99 Respiratory Rate 21 H Blood Pressure 132/79 Pulse Oximetry 97 Oxygen Delivery Mechanical Ventilation Fraction of Inspired Oxygen 40 03/31/24 00:00 03/31/24 02:00 03/31/24 02:00 Temperature Pulse Rate 85 85 Respiratory Rate 27 H Blood Pressure 136/88 Pulse Oximetry 97 Oxygen Delivery Fraction of Inspired Oxygen 40 03/31/24 02:00 03/31/24 02:34 03/31/24 02:34 Temperature Pulse Rate 85 93 93 Respiratory Rate 27 H 27 H Blood Pressure Pulse Oximetry 97 Oxygen Delivery Mechanical Ventilation Fraction of Inspired Oxygen 40 03/31/24 04:00 03/31/24 04:00 03/31/24 04:00 Temperature 99.6 F Pulse Rate 90 90 90 Respiratory Rate 23 H 23 H 23 H Blood Pressure 147/90 H Pulse Oximetry 95 Oxygen Delivery Fraction of Inspired Oxygen 03/31/24 04:00 03/31/24 04:00 03/31/24 04:00 Temperature Pulse Rate 90 Respiratory Rate Blood Pressure Pulse Oximetry Oxygen Delivery Mechanical Ventilation Fraction of Inspired Oxygen 40 40 03/31/24 04:40 03/31/24 06:00 03/31/24 06:00 Temperature Pulse Rate 81 91 91 Respiratory Rate 23 H Blood Pressure Pulse Oximetry 97 Oxygen Delivery Mechanical Ventilation Fraction of Inspired Oxygen 40 03/31/24 06:00 03/31/24 07:00 03/31/24 08:00 Temperature Pulse Rate 91 80 78 Respiratory Rate 23 H 25 H 25 H Blood Pressure 149/86 H Pulse Oximetry 99 Oxygen Delivery Fraction of Inspired Oxygen 03/31/24 08:00 03/31/24 08:00 03/31/24 08:00 Temperature 97.2 F L Pulse Rate 78 94 Respiratory Rate 25 H 18 Blood Pressure 151/92 H Pulse Oximetry 98 98 Oxygen Delivery Mechanical Ventilation Fraction of Inspired Oxygen 40 40 03/31/24 08:00 03/31/24 08:45 03/31/24 09:05 Temperature Pulse Rate 75 94 92 Respiratory Rate 18 23 H Blood Pressure Pulse Oximetry Oxygen Delivery Fraction of Inspired Oxygen 03/31/24 09:05 03/31/24 09:23 Temperature Pulse Rate 80 84 Respiratory Rate 17 Blood Pressure Pulse Oximetry 96 Oxygen Delivery Mechanical Ventilation Fraction of Inspired Oxygen 40 Intake/Output Intake/Output: Intake & Output 03/28/24 03/29/24 03/30/24 03/31/24 23:59 23:59 23:59 23:59 Intake Total 2755.1 908.0 1615.7 1106.2 Output Total 2250 2550 1825 1650 Balance 505.1 -1642.0 -209.3 -543.8 Meds/Results Medications: Active Medications Generic Name Dose Route Start Last Admin Trade Name Freq PRN Reason Stop Dose Admin Acetaminophen 650 mg 03/30/24 20:43 Acetaminophen Elixir 325 Mg/10.15 Ml Udc PO Q6H PRN Mild Pain (1-3) or Fever Apixaban 5 mg 03/29/24 09:00 03/31/24 08:22 Apixaban 5 Mg Tablet PO 5 mg DAILY LAURA Administration Bisacodyl 10 mg 03/28/24 19:00 Bisacodyl 10 Mg Suppository RECTAL DAILY PRN Constipation Dextrose 12.5 gm 03/28/24 13:45 Dextrose 50% 25 Gm/50 Ml Syringe IV PUSH PRN PRN Hypoglycemia Protocol Glucagon 1 mg 03/28/24 13:45 Glucagon For Inj 1 Mg Vial IM PRN PRN Hypoglycemia Protocol Glucose 15 gm 03/28/24 13:45 Glucose Oral Gel 15 Gm Of Glucse In 37.5 Gm Tube PO PRN PRN Hypoglycemia Protocol Hydralazine HCl 10 mg 03/30/24 20:43 03/30/24 20:55 Hydralazine Hcl 20 Mg/Ml Vial IV PUSH 10 mg Q4H PRN Administration Blood Pressure - High Dextrose 1,000 mls @ 100 mls/hr 03/28/24 13:45 Dextrose 5% 1,000 Ml IVPB PRN PRN Hypoglycemia Protocol Ceftriaxone Sodium 2 gm in 100 mls @ 200 mls/hr 03/29/24 09:00 03/31/24 08:25 Rocephin 2 Gm/Ns 100 Ml IVPB 04/03/24 08:59 200 mls/hr Q24H LAURA Administration Doxycycline Hyclate 100 mg in 100 mls @ 100 mls/hr 03/28/24 13:50 03/31/24 08:25 Vibramycin 100 Mg/Ns 100 Ml IVPB 04/02/24 13:49 100 mls/hr Q12HR LAURA Administration Dexmedetomidine HCl 400 mcg in 100 mls @ 12.42 mls/hr 03/30/24 13:50 03/31/24 08:45 Precedex 400 Mcg/100 Ml IV CONT 0.3 mcg/kg/hr .Q8H4M LAURA 9.32 mls/hr Titration Protocol 0.4 MCG/KG/HR Insulin Aspart 3 - 6 units 03/28/24 18:00 03/31/24 06:36 Insulin Aspart (*Bkc) 100 Units/Ml SUB-Q Not Given Q6HR LAURA Protocol Ipratropium [place] 0.5 mg 03/28/24 14:00 03/31/24 09:01 Ipratropium Br 0.02% Inh Soln 0.5 Mg/2.5 Ml Vial INHALATION 0.5 mg Q6HRT LAURA Administration Levalbuterol HCl 1.25 mg 03/28/24 14:00 03/31/24 09:02 Levalbuterol Neb 1.25 Mg/3 Ml INHALATION 1.25 mg Q6HRT LAURA Administration Levothyroxine Sodium 50 mcg 03/29/24 06:30 03/31/24 06:37 Levothyroxine Sodium 50 Mcg Tablet PO 50 mcg DAILY@0630 LAURA Administration Metoclopramide HCl 10 mg 03/31/24 07:36 03/31/24 08:22 Metoclopramide Hcl Inj 10 Mg/2 Ml Vial IV PUSH 04/01/24 00:01 10 mg Q6HR LAURA Administration Multi-Ingred Cream/Lotion/Oil/Oint 1 applic 03/28/24 21:00 03/31/24 08:23 Mineral Oil/White Petrolatum Ointment EACH EYE 1 applic Q12HR LAURA Administration Pantoprazole Sodium 40 mg 03/29/24 09:00 03/31/24 08:22 Pantoprazole Sodium Iv 40 Mg Vial IV PUSH 40 mg QAM LAURA Administration Perflutren Lipid Microsphere 0 ml 03/28/24 14:34 Perflutren Lipid Microspheres 1.5 Ml Vial Diluted To 10 Ml Total Volume IV PUSH 03/31/24 14:34 ONCE PRN adequate visualization Protocol Polyethylene Glycol 17 gm 03/30/24 09:00 03/31/24 08:24 Polyethylene Glycol 3350 17 Gm Powd.Pack PO 17 gm QAM LAURA Administration Senna/Docusate Sodium 1 tab 03/30/24 09:00 03/31/24 08:22 Senna/Docusate Sodium Tablet PO 1 tab Q12HR LAURA Administration Sodium Chloride 10 ml 03/28/24 14:00 03/31/24 06:37 Saline Lock Flush IV PUSH 10 ml Q8HR LAURA Administration Sodium Chloride 10 ml 03/28/24 14:00 03/31/24 06:36 Central Line Flush IV PUSH 10 ml Q8HR LAURA Administration Sodium Chloride 10 ml 03/28/24 12:56 Central Line Flush IV PUSH PRN PRN with TPN bag changes Sodium Chloride 20 ml 03/28/24 12:56 Central Line Flush IV PUSH PRN PRN after blood draws Radiology Results: ITS Impressions Abdomen X-Ray 03/28/24 10:10 IMPRESSION: 1. Nasogastric tube tip in the stomach. Head CT 03/28/24 10:49 Impression: No intracranial hemorrhage, mass, or acute infarct. Atrophy and chronic white matter changes, as above. Renal Ultrasound 03/28/24 15:15 IMPRESSION: 1. Mild right hydronephrosis. The previously seen stones in the right renal collecting system are no longer visualized patient concern for progression into the ureter with secondary obstruction. The stones were visible on the prior CT but not on intervening upper GI study performed on 03/04/2024 suggesting may be difficult to identify by a radiolucent would consider renal stone CT for further evaluation. Abdomen/Pelvis CT 03/29/24 09:39 IMPRESSION: 1. Mild bilateral hydronephrosis without evident urolithiasis. This is likely related to the wall thickening in the decompressed bladder itself likely related to cystitis. 2. Consolidation at the bilateral lower lungs suspicious for combination of atelectasis and pneumonia. 3. Persistent 7.5 cm ball of stool at the rectum with mild wall thickening and minimal perirectal stranding which can be seen with constipation/fecal impaction and secondary stercoral colitis. Chest X-Ray 03/31/24 06:15 IMPRESSION: Small left-sided pleural effusion. Mild pulmonary vascular congestion. Left upper extremity PICC tip is redemonstrated coursing cranially and then back upon itself into the right brachiocephalic vein, towards the right internal jugular vein. This configuration is unchanged dating back to 03/29/2024. Query its functionality. Endotracheal tube and nasogastric tube in good position. Labs Labs: Laboratory Results - last 24 hr 03/30/24 03/30/24 03/30/24 11:33 17:22 17:33 WBC RBC Hgb Hct MCV MCH MCHC RDW Plt Count MPV Immature Gran % (Auto) Neut % (Auto) Lymph % (Auto) [place] % (Auto) Eos % (Auto) Baso % (Auto) Lymph # (Auto) [place] # (Auto) Eos # (Auto) Baso # (Auto) Abs Immat Gran (auto) Absolute Neuts (auto) Absolute Nucleated RBC Nucleated RBC % Puncture Site ABG pH ABG pCO2 ABG pO2 ABG PO2/FiO2 Ratio ABG HCO3 ABG O2 Saturation ABG O2 Content ABG Base Excess A-a Gradient Oxyhemoglobin Carboxyhemoglobin Methemoglobin Reduced Hemoglobin Total Hemoglobin O2 Delivery Device O2 Liters/Min Minute Volume Vent Rate Vent Mode FiO2 Tidal Volume PEEP Peak Inspir Pressure Pressure Support Sodium Potassium Chloride Carbon Dioxide Anion Gap BUN Creatinine Estim Creat Clear Calc Estimated GFR Glucose POC Capillary Glucose 157 H 136 H Calcium Phosphorus Magnesium Total Bilirubin AST ALT Alkaline Phosphatase Total Protein Albumin Random Vancomycin 16.0 03/31/24 03/31/24 03/31/24 00:15 04:19 04:39 WBC 9.2 RBC 3.52 L Hgb 9.9 L Hct 32.1 L MCV 91.2 MCH 28.1 MCHC 30.8 L RDW 16.5 H Plt Count 119 L MPV 10.4 Immature Gran % (Auto) 0.4 Neut % (Auto) 78.0 H Lymph % (Auto) 10.9 L [place] % (Auto) 9.4 H Eos % (Auto) 1.1 Baso % (Auto) 0.2 Lymph # (Auto) 1.00 [place] # (Auto) 0.9 H Eos # (Auto) 0.1 Baso # (Auto) 0.0 Abs Immat Gran (auto) 0.04 H Absolute Neuts (auto) 7.1 H Absolute Nucleated RBC 0.000 Nucleated RBC % 0.0 Puncture Site Right radial ABG pH 7.439 ABG pCO2 42.0 ABG pO2 91.5 ABG PO2/FiO2 Ratio 2.29 ABG HCO3 27.8 H ABG O2 Saturation 97.2 ABG O2 Content 15.1 L ABG Base Excess 3.3 A-a Gradient 145.4 Oxyhemoglobin 96.9 Carboxyhemoglobin 0.4 Methemoglobin 0.1 Reduced Hemoglobin 2.6 Total Hemoglobin 11.0 L O2 Delivery Device Ventilator O2 Liters/Min Not Reportable Minute Volume Not Reportable Vent Rate 18 Vent Mode Cmv FiO2 40 Tidal Volume 500 PEEP 8 Peak Inspir Pressure Not Reportable Pressure Support Not Reportable Sodium 138 Potassium 4.3 Chloride 101 Carbon Dioxide 29 Anion Gap 8 BUN 53 H Creatinine 1.18 Estim Creat Clear Calc 63 Estimated GFR 60 Glucose 187 H POC Capillary Glucose 181 H Calcium 9.4 Phosphorus 2.6 Magnesium 2.0 Total Bilirubin 0.8 AST 25 ALT 15 Alkaline Phosphatase 56 Total Protein 7.0 Albumin 3.3 L Random Vancomycin Quality VTE Prophylaxis VTE prophylaxis: mechanical ordered and pharmacologic ordered
--- NOTE | 2024-03-31 11:08 | PC.NURSE ---
Dr. Andrade to bedside, SBT initiated, ventilator changes made.
[2024-03-31 11:33] LABS: Glucose Point of Care 157 mg/dl (65-105)
[2024-03-31 13:17] LABS: Alveolar/Arterial O2 Gradient 116.6 mmHg; Base Excess ABG 7.1 mEq/l (+/-2.0); Fractional Inspired Oxygen 40 %; HCO3 ABG 33.2 mEq/l (22.0-26.0); Oxygen Content ABG 14.5 %vol (16.0-22.0); Oxygen Saturation ABG 97.7 % (95.0-100.0); Oxyhemoglobin 97.2 % THb (90.0-100.0); PCO2 ABG 55.6 mmHg (35.0-45.0); PO2 ABG 104.7 mmHg (80.0-100.0); PO2 FiO2 Ratio Arterial Blood 2.62 %; Total Hemoglobin 10.5 g/dL (12.0-18.0); pH ABG 7.394 (7.350-7.450)
[2024-03-31 13:20] LABS: Arterial Blood Gas Vent Mode SPONTANEOUS; Device VENTILATOR; Modified Allen's Test Pass; Site Drawn RIGHT RADIAL
[2024-03-31 13:21] LABS: Arterial Blood Gas PEEP 8 cmH2O; Arterial Blood Gas Pressure Support 10 cmH2O
[2024-03-31 18:02] LABS: Glucose Point of Care 125 mg/dl (65-105)
[2024-04-01] VITALS (21 sets, daily range): BP systolic 114–141; BP diastolic 74–94; PULSE 86–113; RESP 19–27; TEMP 36.1–36.6; O2SAT 92–100
[2024-04-01] MEDS: METOCLOPRAMIDE HCL INJ 10 MG/2 ML VIAL IV PUSH (00:45)
[2024-04-01 00:49] LABS: Glucose Point of Care 97 mg/dl (65-105)
[2024-04-01] MEDS: IPRATROPIUM BR 0.02% INH SOLN 0.5 MG/2.5 ML VIAL INHALATION ×4 (02:40→20:36)
[2024-04-01] MEDS: LEVALBUTEROL NEB 1.25 MG/3 ML INHALATION ×4 (02:41→20:37)
[2024-04-01 05:10] LABS: Alveolar/Arterial O2 Gradient 131.6 mmHg; Base Excess ABG 7.1 mEq/l (+/-2.0); Carboxyhemoglobin 0.5 % THb (0-2.0); Fractional Inspired Oxygen 40 %; HCO3 ABG 34.5 mEq/l (22.0-26.0); Methemoglobin ABG 0.1 %THb (0-1.5); Oxygen Content ABG 13.7 %vol (16.0-22.0); Oxygen Saturation ABG 94.4 % (95.0-100.0); Oxyhemoglobin 93.8 % THb (90.0-100.0); PO2 FiO2 Ratio Arterial Blood 1.95 %; Reduced Hemoglobin 5.6 %THb (0-5.0); Total Hemoglobin 10.3 g/dL (12.0-18.0); pH ABG 7.338 (7.350-7.450)
[2024-04-01 05:14] LABS: Modified Allen's Test Pass; PCO2 ABG 65.7 mmHg (35.0-45.0); Site Drawn LEFT RADIAL
[2024-04-01 05:15] LABS: Device NASAL CANNULA
[2024-04-01] MEDS: LEVOTHYROXINE SODIUM 50 MCG TABLET PO (06:07)
[2024-04-01 06:23] LABS: Glucose Point of Care 85 mg/dl (65-105)
[2024-04-01 06:32] LABS: Basophils Percent Auto 0.2 % (0.2-1.2); Eosinophils Absolute Auto 0.3 K/mm3 (0-0.3); Eosinophils Percent Auto 3.1 % (0-4.4); Hematocrit 33.1 % (42.0-52.0); Hemoglobin 9.6 g/dL (14.0-18.0); Immature Granulocyte Absolute 0.03 K/mm3 (0.00-0.031); Immature Granulocyte Percent A 0.4 % (0-0.5); Lymphocytes Absolute Auto 1.11 K/mm3 (0.9-3.2); Lymphocytes Percent Auto 13.7 % (18.3-44.2); Mean Corpuscular Hemoglobin 27.4 pg (26-34); Mean Corpuscular Volume 94.6 fl (80-100); Mean Platelet Volume 9.8 fl (7.4-10.4); Monocytes Absolute Auto 0.7 K/mm3 (0.1-0.6); Monocytes Percent Auto 8.8 % (2.6-8.5); Neutrophils Percent Auto 73.8 % (45.5-73.1); Platelet Count Result 133 k/mm3 (150-375); Red Cell Distribution Width 16.8 % (11.5-14.5); White Blood Count 8.1 K/mm3 (4.5-10.0)
[2024-04-01 06:46] LABS: Alanine Aminotransferase 15 U/L (6-50); Albumin Level 3.1 g/dL (3.5-5.1); Alkaline Phosphatase 68 U/L (38-126); Anion Gap 5 mmol/L (4-12); Aspartate Amino Transferase 18 U/L (17-59); Bilirubin,Total 0.7 mg/dL (0.2-1.3); Blood Urea Nitrogen 45 mg/dL (9-20); Calcium 9.8 mg/dL (8.4-10.2); Carbon Dioxide 36 mmol/L (22-30); Chloride 103 mmol/L (98-107); Estimated CRCL calculation 57 ml/min; Estimated Glomerular Filt Rate 53; Glucose 102 mg/dL (65-110); Phosphorus 3.7 mg/dL (2.5-4.5); Sodium 144 mmol/L (137-145)
[2024-04-01] MEDS: PANTOPRAZOLE SODIUM IV 40 MG VIAL IV PUSH (08:07)
[2024-04-01] MEDS: cefTRIAXone 2 GM/NS 100 ML 2 GM/100 ML BAG IVPB (08:07)
[2024-04-01] MEDS: DOXYCYCLINE 100 MG/NS 100 ML 100 MG/100 ML BAG IVPB ×2 (08:07→21:22)
[2024-04-01 08:13] LABS: Anisocytosis 1+; Platelet Estimate Decreased (Adequate)
[2024-04-01 08:14] LABS: Ovalocytes 1+
[2024-04-01 08:15] LABS: Schistocytes None Seen
[2024-04-01] MEDS: polyethylene glycoL 3350 17 GM POWD.PACK PO (09:49)
[2024-04-01] MEDS: APIXABAN 5 MG TABLET PO (09:49)
[2024-04-01] MEDS: SENNA/DOCUSATE SODIUM TABLET 1 TAB PO ×2 (09:49→21:22)
--- NOTE | 2024-04-01 10:07 | P.CONCA_ITS ---
Assessment and Plan Assessment and plan (1) Cardiomyopathy: Code(s): I42.9 - Cardiomyopathy, unspecified Status: Acute Assessment and Plan: EF 40-45%. He does not appear to be in decompensated heart failure at this time. * Continue with coreg, jardiance (2) Atrial fibrillation: Qualifiers: Atrial fibrillation type: unspecified Qualified Code(s): I48.91 - Unspecified atrial fibrillation Code(s): I48.91 - Unspecified atrial fibrillation Status: Chronic Assessment and Plan: Longstanding chronic atrial fibrillation currently rate controlled. Continue with Eliquis for cardioembolic risk reduction. 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 Continue Eliquis 5mg b.i.d. (4) Hypertension: Code(s): I10 - Essential (primary) hypertension Status: Acute Assessment and Plan: Restarting coreg. History of Present Illness History of Present Illness Consult date/time: 04/01/24 10:07 Requesting physician: Blanche Andrade MD Consult reason: Other (cardiomyopathy) Reason For Visit: Acute Hypercap Resp Failure/UTI/ Shock Narrative: Hans Gaytan is a 74 year old male with a history of atrial fibrillation, CVA, chronic hypercapnic and hypoxic respiratory failure on 4L O2 at [facility], chronic kidney disease, and HOMER on BiPAP. He presented to the hospital with worsening shortness of breath and altered mental status. He was apparently obtunded upon arrival. He is alert and extubated at this point but his baseline mental status is altered due to previous stroke, therefore, I am not able to obtain history from him directly. Rather, most of his history has been obtained through the medical record. Cardiology is being consulted because of a new finding of reduced LV systolic function and severe pulmonary hypertension. Review of Systems 2 Review of Systems: ROS unobtainable: Yes unobtainable due to medical condition and unobtainable due to mental status PMFSH Past Medical History Medical History Chronic respiratory failure with hypoxia, on home oxygen therapy Obesity hypoventilation syndrome Osteomyelitis (2019) right foot Hypothyroidism Chronic kidney disease, stage 3 Gastroesophageal reflux disease Obstructive sleep apnea treated with BiPAP Chronic obstructive pulmonary disease Sclerosing mesenteritis Hyperlipidemia Hypertension Deep venous thrombosis Cerebrovascular accident Heart failure with preserved ejection fraction Chronic anticoagulation Type 2 diabetes mellitus Urinary retention Morbid obesity Chronic kidney disease Atrial fibrillation Surgical History Surgical History Status post right foot surgery Family History Family History Father Cancer Mother Chronic obstructive pulmonary disease Cancer Social History Social History Social History: Surrogate medical decision maker: Ayana Gaytan, spouse. Code status: Smoking packs per day: 1 Smoking cigarettes per day: 20.0 Years smoked: 15 Smoking pack-years: 15.00 Smoking status: Never smoker Tobacco type: cigarettes Second hand tobacco smoke exposure: Yes Alcohol intake: never Substance use: never Substance use type: does not use Lack of Transportation: No Lack of Food: Never True Current Housing: I Have Housing Concerned About Future Housing: No Difficulty Paying Gas/Electric Bills: No Difficulty Paying for Meds: No Currently Unemployed: No Education: Decline to Answer Difficulty w/ Childcare or Family Care: No Living arrangements: [facility] Additional living arrangements comments: [facility] Occupation/Education: retired 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 Spiritual care concerns: No Agree to blood products: Yes Meds Home Medications and Allergies Home Medications ?Medication ?Instructions ?Recorded ?Confirmed ?Type albuterol sulfate 2.5 mg/3 mL 2.5 mg inhalation TID 01/13/23 03/28/24 History (0.083 %) solution for nebulization apixaban 5 mg tablet (Eliquis) 5 mg PO DAILY 01/13/23 03/28/24 History bisacodyl 10 mg rectal suppository 10 mg RECTAL DAILY PRN Constipation 01/13/23 03/28/24 History furosemide 40 mg tablet 40 mg PO DAILY 01/13/23 03/28/24 History levothyroxine 50 mcg tablet 50 mcg PO DAILY 01/13/23 03/28/24 History magnesium citrate (Citroma oral 296 ml PO PRN PRN Constipation 01/13/23 03/28/24 History solution) magnesium hydroxide 400 mg/5 mL 30 ml PO PRN PRN Constipation 01/13/23 03/28/24 History oral suspension (Milk of Magnesia) pantoprazole 40 mg tablet,delayed 40 mg PO DAILY 01/13/23 03/28/24 History release (Protonix) budesonide-formoterol HFA 160 2 puff inhalation BID 03/03/24 03/28/24 History mcg-4.5 mcg/actuation aerosol inhaler carvedilol 12.5 mg tablet 12.5 mg PO BID hypertension 03/03/24 03/28/24 History cholecalciferol (vitamin D3) 1,250 50,000 unit PO WEEKLY 03/03/24 03/28/24 History mcg (50,000 unit) capsule hydrocortisone 10 mg tablet 10 mg PO HS 03/03/24 03/28/24 History insulin aspart U-100 100 unit/mL 5 unit subcut ACHS 03/03/24 03/28/24 History (3 mL) subcutaneous pen metformin 500 mg tablet,extended 500 mg PO DAILY 03/03/24 03/28/24 History release 24 hr empagliflozin 10 mg tablet 5 mg (1/2 x 10 mg) PO DAILY #30 03/07/24 03/28/24 Rx (Jardiance) tabs Saccharomyces boulardii 250 mg 250 mg PO BID 03/28/24 03/28/24 History capsule (Daily Probiotic (S. boulardii)) cholecalciferol (vitamin D3) 125 250 mcg PO WEEKLY 03/28/24 03/28/24 History mcg (5,000 unit) tablet meropenem 1 gram intravenous 1 g IV Q12H 03/28/24 03/28/24 History solution multivitamin 1 tablet PO DAILY 03/28/24 03/28/24 History ondansetron 4 mg disintegrating 4 mg PO Q8H PRN nausea and vomiting 03/28/24 03/28/24 History tablet Allergies Allergy/AdvReac Type Severity Reaction Status Date / Time lisinopril Allergy Unknown Verified 03/28/24 16:52 Vital Signs Vital Signs - 24 hr 03/31/24 10:49 03/31/24 11:20 03/31/24 12:00 Temperature 37.3 C Pulse Rate 73 86 87 Respiratory Rate 11 L 28 H Blood Pressure 144/92 H Pulse Oximetry 95 98 Oxygen Delivery Mechanical Ventilation Oxygen Flow Rate Fraction of Inspired Oxygen 40 03/31/24 12:00 03/31/24 12:00 03/31/24 12:00 Temperature Pulse Rate 86 94 Respiratory Rate 25 H Blood Pressure Pulse Oximetry 98 Oxygen Delivery Mechanical Ventilation Oxygen Flow Rate Fraction of Inspired Oxygen 40 40 03/31/24 13:58 03/31/24 14:00 03/31/24 14:00 Temperature Pulse Rate 94 94 Respiratory Rate 22 H Blood Pressure 132/84 Pulse Oximetry 93 92 Oxygen Delivery Nasal Cannula Oxygen Flow Rate 2 Fraction of Inspired Oxygen 03/31/24 14:00 03/31/24 14:23 03/31/24 14:24 Temperature Pulse Rate 94 84 Respiratory Rate 22 H 19 Blood Pressure Pulse Oximetry 92 86 L Oxygen Delivery Nasal Cannula Nasal Cannula Oxygen Flow Rate 2 2 Fraction of Inspired Oxygen 03/31/24 14:39 03/31/24 16:00 03/31/24 16:00 Temperature 35.9 C L Pulse Rate 85 86 91 Respiratory Rate 21 H 23 H Blood Pressure 115/70 Pulse Oximetry 96 Oxygen Delivery Oxygen Flow Rate Fraction of Inspired Oxygen 03/31/24 16:00 03/31/24 18:00 03/31/24 18:00 Temperature Pulse Rate 86 88 88 Respiratory Rate 25 H 22 H Blood Pressure 123/67 Pulse Oximetry 98 99 Oxygen Delivery Nasal Cannula Oxygen Flow Rate 2 Fraction of Inspired Oxygen 03/31/24 18:00 03/31/24 20:00 03/31/24 20:00 Temperature 36.1 C L Pulse Rate 81 87 Respiratory Rate 27 H 23 H Blood Pressure 119/71 Pulse Oximetry 96 96 Oxygen Delivery Nasal Cannula Oxygen Flow Rate 4 Fraction of Inspired Oxygen 03/31/24 20:00 03/31/24 21:03 03/31/24 21:06 Temperature Pulse Rate 97 82 82 Respiratory Rate 20 Blood Pressure Pulse Oximetry 95 Oxygen Delivery Nasal Cannula Oxygen Flow Rate 4 Fraction of Inspired Oxygen 03/31/24 21:18 03/31/24 22:00 03/31/24 22:00 Temperature Pulse Rate 90 80 80 Respiratory Rate 23 H 22 H Blood Pressure 133/81 Pulse Oximetry 97 Oxygen Delivery Oxygen Flow Rate Fraction of Inspired Oxygen 04/01/24 00:00 04/01/24 00:00 04/01/24 00:00 Temperature 36.1 C L Pulse Rate 88 102 H Respiratory Rate 19 Blood Pressure 114/74 Pulse Oximetry 93 93 Oxygen Delivery Nasal Cannula Oxygen Flow Rate 4 Fraction of Inspired Oxygen 04/01/24 02:00 04/01/24 02:00 04/01/24 02:41 Temperature Pulse Rate 86 88 92 Respiratory Rate 25 H 19 Blood Pressure 137/88 Pulse Oximetry 98 Oxygen Delivery Oxygen Flow Rate Fraction of Inspired Oxygen 04/01/24 02:53 04/01/24 04:00 04/01/24 04:00 Temperature 36.4 C L Pulse Rate 90 95 Respiratory Rate 19 22 H Blood Pressure 123/84 Pulse Oximetry 92 92 Oxygen Delivery Nasal Cannula Oxygen Flow Rate 4 Fraction of Inspired Oxygen 04/01/24 04:00 04/01/24 06:00 04/01/24 06:00 Temperature Pulse Rate 100 96 90 Respiratory Rate 23 H Blood Pressure 132/84 Pulse Oximetry 96 Oxygen Delivery Oxygen Flow Rate Fraction of Inspired Oxygen 04/01/24 08:00 04/01/24 08:00 04/01/24 08:00 Temperature 36.6 C Pulse Rate 96 99 Respiratory Rate 27 H 24 H Blood Pressure 141/76 H Pulse Oximetry 98 98 Oxygen Delivery Nasal Cannula Oxygen Flow Rate 4 Fraction of Inspired Oxygen 04/01/24 08:55 04/01/24 08:55 04/01/24 09:08 Temperature Pulse Rate 97 Respiratory Rate 20 Blood Pressure Pulse Oximetry 97 100 Oxygen Delivery Nasal Cannula Nasal Cannula Oxygen Flow Rate 4 4 Fraction of Inspired Oxygen 36 36 04/01/24 09:08 04/01/24 10:00 Temperature 36.4 C Pulse Rate 91 96 Respiratory Rate 20 24 H Blood Pressure 141/76 H Pulse Oximetry 98 Oxygen Delivery Oxygen Flow Rate Fraction of Inspired Oxygen Exam 2 Const: General: comfortable, no acute distress, alert and awake HENMT: Head: normal to inspection Eyes: General: appearance normal, both eyes and all related structures P upils: Equal, round and reactive pupils present Neck: Neck: normal visual inspection, supple and no JVD Carotids: normal carotid upstroke Resp: Effort & Inspection: normal respiratory effort Auscultation: clear to auscultation bilaterally Cardio: Rate: regular rate Rhythm: abnormal rhythm irregularly irregular Heart sounds: S1 normal heart sound present, S2 normal heart sound present and no murmurs GI: Auscultation: normal bowel sounds Skin: General skin exam: normal color Neuro: General: patient oriented x3 Cranial nerves: Yes Equal, round and reactive pupils present Extrem: General: no edema and no pedal edema Psych: Appearance: grossly normal Mental Status: mental status grossly abnormal Results Labs and Meds 04/01/24 06:25 04/01/24 06:25 Lab results: Cardiac Enzymes 04/01/24 Range/Units 06:25 AST 18 (17-59) U/L CBC 04/01/24 Range/Units 06:25 WBC 8.1 (4.5-10.0) K/mm3 RBC 3.50 L (4.6-6.20) M/mm3 Hgb 9.6 L (14.0-18.0) g/dL Hct 33.1 L (42.0-52.0) % Plt Count 133 L (150-375) k/mm3 Lymph # (Auto) 1.11 (0.9-3.2) K/mm3 Mower # (Auto) 0.7 H (0.1-0.6) K/mm3 Eos # (Auto) 0.3 (0-0.3) K/mm3 Baso # (Auto) 0.0 (0.0-0.1) K/mm3 Comprehensive Metabolic Panel 04/01/24 Range/Units 06:25 Sodium 144 (137-145) mmol/L Potassium 4.0 (3.4-5.0) mmol/L Chloride 103 (98-107) mmol/L Carbon Dioxide 36 H (22-30) mmol/L BUN 45 H (9-20) mg/dL Creatinine 1.32 H (0.7-1.3) mg/dL Glucose 102 (65-110) mg/dL Calcium 9.8 (8.4-10.2) mg/dL AST 18 (17-59) U/L ALT 15 (6-50) U/L Alkaline Phosphatase 68 (38-126) U/L Total Protein 7.0 (6.3-8.2) g/dL Albumin 3.1 L (3.5-5.1) g/dL Intake and Output 03/31/24 04/01/24 04/01/24 23:59 07:59 15:59 Intake Total 207 60 400 Output Total 950 675 Balance -743 615 400 Intake: IV 100 200 dexmedeTOMIDine 400 MCG/100 ML 0 400 mcg In 100 ml @ 0 mls/hr IV CONT .Q0M [facility] Rx#:[id number] Doxycycline 100 mg/Ns 100 ml 100 100 100 mg In 100 ml @ 100 mls/hr IVPB Q12HR [facility] Rx#:[id number] cefTRIAXone 2 GM/NS 100 ML 2 gm 100 In 100 ml @ 200 mls/hr IVPB Q24H [facility] Rx#:[id number] Oral 200 Tube Feeding 107 60 Output: Catheter Urine 950 675 Urethral Catheter 950 675 Patient Weight 04/01/24 23:59 Weight 124.4 kg
[2024-04-01 11:18] LABS: Glucose Point of Care 118 mg/dl (65-105)
--- NOTE | 2024-04-01 11:46 | PCSTNOTE ---
Please refer to the Bedside Swallow Evaluation in the EMR. Please note, silent aspiration cannot be ruled out at bedside. Pt was seen for a bedside swallow evaluation; pt is status post-extubation on 03/31 & was intubated x3 days. He was positioned upright in the bed; his speech is garbled but per his daughter that is his norm since a CVA in 2019. Pt resides in an NH and was admitted for respiratory failure. The pt did not dry swallow on command; clear vocal quality was noted before oral trials. He was tested with small ice chips, 5cc thin liquid, 1/2 to 1 tsp amounts of pudding, small bite-size pieces of cracker, cup sips of water, and water via straw drinking. Poor dentition, per his daughter, dentures do not fit so he doesn't ever wear them to eat and is able to eat solids. Overall the oral stages were functional except during cup drinking when contents were spilled from mouth. Pt was able to demonstrate a labial seal around a straw and per his daughter that is the preferred way of drinking at the [place]. Laryngeal elevation appeared adequate; no immediate overt s/s of aspiration were exhibited; as ST was about to leave the room an isolated delayed cough was noted; per the pts daughter, he has COPD and asthma and has that occasional cough. Impression/Recommendation: appears to exhibit a functional swallow but due to an isolated cough pt should have 1:1 supervision during all oral intake; Level 5 diet with regular liquids. If any further overt s/s of aspiration are exhibited, refer back to speech therapy for an MBS.
--- NOTE | 2024-04-01 11:53 | PCFNICU ---
ICU Rounding Note: Pt current nutrition is Minced and Moist, Level 5/DBCC. Nutrition recommendation:Glucerna shakes BID Last recorded weight is 124.4 kg, stable Bowel Motility: +BM reported 03/29 Labs Reviewed:Cr 1.32, GFR 53, BUN 45, Alb 3.1 Meds Noted:Protonix, Atrovent, Eliquis, Senokot Skin: Deep Tissue-Buttock. Additional Notes: Patient had swallow evaluation today, recommending Minced and Moist, Level 5/Diabetic diet. Diet supplements recommended of Glucerna shakes BID and Rogelio changed to PO for wound healing. Will monitor PO intake. Following daily in ICU rounds. Will monitor weight, labs, skin, diet orders, meds every 5 days.
--- NOTE | 2024-04-01 12:35 | WPDINTPN ---
Progress Note: A&P Assessment and Plan (1) Acute respiratory failure with hypercapnia: Code(s): J96.02 - Acute respiratory failure with hypercapnia Status: Acute Assessment and Plan: 03/28:Patient presented with respiratory distress, shortness of breath, altered mental status -initial ABG showed pH of 7.19 and pCO2 of 117, patient was obtunded, BiPAP was not an option due to altered mental status so that patient was intubated in the ER on 03/28 -etiology: COPD exacerbation, hypercapnic respiratory failure, pneumonia, obesity hypoventilation syndrome, obstructive sleep apnea may also be playing a role -03/31: extubated successfully -contain Xopenex and Atrovent nebs - RSV, COVID and influenza are negative -speech therapy has been ordered for bedside swallow evaluation -PT and OT to evaluate patient (2) Shock: Code(s): R57.9 - Shock, unspecified Status: Acute Assessment and Plan: RESOLVED Patient presented with hypotension, anemia related to sepsis/infection/hypovolemia, UTI -patient given 2 L IV fluid bolus in the ER -03/28: left-sided PICC line was inserted in the ER -off Levophed, continue maintain MAP > 65 mmHg wall show adequate end organ perfusion -urine output has been good, creatinine has normalized - monitor urine output and renal function -continue ceftriaxone, and doxycycline (03/28) for a total of 5 days 03/31: Discontinue vancomycin Negative so -MRSA screen was positive -03/28: blood cultures are negative -03/28: urine cultures with no growth -03/28: Sputum culture -growth of normal oropharyngeal terence (3) Acute worsening of stage 3 chronic kidney disease: Code(s): N18.30 - Chronic kidney disease, stage 3 unspecified Status: Acute Assessment and Plan: Patient has history of chronic kidney disease stage 3 (baseline creatinine seems to be 1.4-1.8). Likely related to hypotension from shock, infection, UTI, hypovolemia -patient presented with a creatinine of 2.67 this admission -adequately fluid-resuscitated negative blood cultures 03/29/2024 only -status post IV fluids -used albumin for additional intravascular volume repletion -continue to monitor urine output, renal function electrolytes -mild hydronephrosis on renal ultrasound was noted, -appreciate urology evaluation recommendations. They requested a CT scan of the abdomen and pelvis to rule out renal stones. CT scan of the abdomen and pelvis as below, no further intervention -adequate urine output, creatinine down to 1.32 this the morning which is better than his baseline 03/29: CT abdomen and pelvis IMPRESSION: 1. Mild bilateral hydronephrosis without evident urolithiasis. This is likely related to the wall thickening in the decompressed bladder itself likely related to cystitis. 2. Consolidation at the bilateral lower lungs suspicious for combination of atelectasis and pneumonia. 3. Persistent 7.5 cm ball of stool at the rectum with mild wall thickening and minimal perirectal stranding which can be seen with constipation/fecal impaction and secondary stercoral colitis. (4) Atrial fibrillation: Qualifiers: Atrial fibrillation type: unspecified Qualified Code(s): I48.91 - Unspecified atrial fibrillation Code(s): I48.91 - Unspecified atrial fibrillation Status: Chronic Assessment and Plan: Patient has a history of atrial fibrillation on Eliquis and the nursing -currently was in AFib, rate controlled -continue Eliquis (5) Chronic obstructive pulmonary disease: Code(s): J44.9 - Chronic obstructive pulmonary disease, unspecified Status: Acute Assessment and Plan: History of COPD, on 4 L home oxygen -continue antibiotics, bronchodilator -will hold steroids as patient does not have any wheezing (6) Diabetes mellitus: Code(s): E11.9 - Type 2 diabetes mellitus without complications Status: Chronic Assessment and Plan: Accu-Cheks and sliding scale insulin (7) Heart failure with preserved ejection fraction: Code(s): I50.30 - Unspecified diastolic (congestive) heart failure Status: Acute Assessment and Plan: ProBNP was 9230 -troponin was 0.042, 0.122 -chest x-ray does not look fluid volume overloaded -continue to monitor -appreciate cardiology evaluation and recommendations, continue carvedilol and Jardiance 03/29/2024: Echocardiogram Summary 1. Complete two-dimensional, color flow and Doppler transthoracic echocardiogram is performed. 2. Left ventricular chamber dimension is moderately enlarged. 3. Left ventricular systolic function is moderately globally reduced, estimated at 40-45%. 4. The left ventricular diastolic function is normal. 5. E/e' 9 is minimally elevated. 6. Left atrial chamber dimension is moderately enlarged. 7. Right atrial chamber dimension is moderately enlarged. 8. There is mild aortic valve sclerosis. 9. There is mild mitral valve regurgitation. 10. There is mild to moderate tricuspid valve regurgitation. 11. Severe pulmonary hypertension, estimated pulmonary arterial systolic pressure is 64 mmHg. (8) Hypothyroidism: Code(s): E03.9 - Hypothyroidism, unspecified Status: Acute Assessment and Plan: Continue levothyroxine (9) Urinary tract infection: Code(s): N39.0 - Urinary tract infection, site not specified Status: Acute Assessment and Plan: UA was reflective of UTI, -Continue antibiotics as above, urine cultures negative so far (10) Fecal impaction: Code(s): K56.41 - Fecal impaction Status: Acute Assessment and Plan: Fecal impaction with stool ball at the rectum as seen on the CT scan of the abdomen and pelvis as above -continue MiraLax and docusate with senna -status post soapsuds enema on 03/30 Plan DVT prophylaxis: Eliquis Stress ulcer prophylaxis: Protonix Nutrition: Bedside swallow evaluation by speech therapy today PT and OT to evaluate Code Status: Full code Critical Care Time Spent: 32 minutes Patient may transfer out of the ICU to intermediate Unit Discuss with daughter during rounds, updated her with patient's condition plan of care. I answered all questions. Due to a high probability of clinically significant, life threatening deterioration, the patient required my highest level of preparedness to intervene emergently and I personally spent this critical care time directly and personally managing the patient. This critical care time included obtaining a history; examining the patient; pulse oximetry; ordering and review of studies; arranging urgent treatment with development of a management plan; evaluation of patient's response to treatment; frequent reassessment; and discussions with other providers. It was exclusive of separately billable procedures and treating other patients and teaching time. Please see Assessment and Plan section and the rest of the note for further information on patient assessment and treatment This dictation may have been done utilizing a voice recognition system. Attempts have been made to correct errors. However, there may be uncorrected grammatical, spelling, and recognitions errors present. Subjective Date/time seen: 04/01/24 12:35 Interval history: Reason for consult: Acute hypercapnic respiratory failure, encephalopathy, hypotensive, shock, pneumonia, UTI, acute on chronic kidney disease 03/31: Extubated 04/01: Patient seen and examined the ICU. Remains extubated on 4 L nasal cannula (patient uses 4 L oxygen at shelter). Patient is awake, alert, able to answer questions. His daughter states his voice and his articulation is normal. Denies any shortness of breath, abdominal pain, nausea vomiting at this time. He did pull his NG tube out. Currently afebrile, hemodynamically stable a, adequate urine output Review of Systems Review of Systems: All systems reviewed & are unremarkable except as noted in HPI and below Exam Narrative: General: Pleasant gentleman, in no acute distress, continue on to his words and voice which the daughter states is normal HEENT:? Pupils are pinpoint but equal and reactive, sclerae ischemia, Neck:? Supple, thick neck Respiratory:? Coarse breath sounds bilaterally, decreased at bases, no wheezing, adequate air entry Cardiac:? Irregularly irregular, tachycardia Abdomen:? soft, nontender, nondistended, morbidly obese, hypoactive bowel sound Extremities:? Trace bilateral lower extremity edema, pitting edema on dorsum of the feet bilaterally. Palpable pedal pulses Neuro:? Patient is awake, alert, answers questions and follows simple commands Skin:? Left big toe nail seems to have fallen off Psych:? Normal mentation and affect Objective Data Vital Signs Vital Signs: Vital Signs - 24 hr 03/31/24 13:58 03/31/24 14:00 03/31/24 14:00 Temperature Pulse Rate 94 94 Respiratory Rate 22 H Blood Pressure 132/84 Pulse Oximetry 93 92 Oxygen Delivery Nasal Cannula Oxygen Flow Rate 2 Fraction of Inspired Oxygen 03/31/24 14:00 03/31/24 14:23 03/31/24 14:24 Temperature Pulse Rate 94 84 Respiratory Rate 22 H 19 Blood Pressure Pulse Oximetry 92 86 L Oxygen Delivery Nasal Cannula Nasal Cannula Oxygen Flow Rate 2 2 Fraction of Inspired Oxygen 03/31/24 14:39 03/31/24 16:00 03/31/24 16:00 Temperature 96.6 F L Pulse Rate 85 86 91 Respiratory Rate 21 H 23 H Blood Pressure 115/70 Pulse Oximetry 96 Oxygen Delivery Oxygen Flow Rate Fraction of Inspired Oxygen 03/31/24 16:00 03/31/24 18:00 03/31/24 18:00 Temperature Pulse Rate 86 88 88 Respiratory Rate 25 H 22 H Blood Pressure 123/67 Pulse Oximetry 98 99 Oxygen Delivery Nasal Cannula Oxygen Flow Rate 2 Fraction of Inspired Oxygen 03/31/24 18:00 03/31/24 20:00 03/31/24 20:00 Temperature 96.9 F L Pulse Rate 81 87 Respiratory Rate 27 H 23 H Blood Pressure 119/71 Pulse Oximetry 96 96 Oxygen Delivery Nasal Cannula Oxygen Flow Rate 4 Fraction of Inspired Oxygen 03/31/24 20:00 03/31/24 21:03 03/31/24 21:06 Temperature Pulse Rate 97 82 82 Respiratory Rate 20 Blood Pressure Pulse Oximetry 95 Oxygen Delivery Nasal Cannula Oxygen Flow Rate 4 Fraction of Inspired Oxygen 03/31/24 21:18 03/31/24 22:00 03/31/24 22:00 Temperature Pulse Rate 90 80 80 Respiratory Rate 23 H 22 H Blood Pressure 133/81 Pulse Oximetry 97 Oxygen Delivery Oxygen Flow Rate Fraction of Inspired Oxygen 04/01/24 00:00 04/01/24 00:00 04/01/24 00:00 Temperature 96.9 F L Pulse Rate 88 102 H Respiratory Rate 19 Blood Pressure 114/74 Pulse Oximetry 93 93 Oxygen Delivery Nasal Cannula Oxygen Flow Rate 4 Fraction of Inspired Oxygen 04/01/24 02:00 04/01/24 02:00 04/01/24 02:41 Temperature Pulse Rate 86 88 92 Respiratory Rate 25 H 19 Blood Pressure 137/88 Pulse Oximetry 98 Oxygen Delivery Oxygen Flow Rate Fraction of Inspired Oxygen 04/01/24 02:53 04/01/24 04:00 04/01/24 04:00 Temperature 97.5 F L Pulse Rate 90 95 Respiratory Rate 19 22 H Blood Pressure 123/84 Pulse Oximetry 92 92 Oxygen Delivery Nasal Cannula Oxygen Flow Rate 4 Fraction of Inspired Oxygen 04/01/24 04:00 04/01/24 06:00 04/01/24 06:00 Temperature Pulse Rate 100 96 90 Respiratory Rate 23 H Blood Pressure 132/84 Pulse Oximetry 96 Oxygen Delivery Oxygen Flow Rate Fraction of Inspired Oxygen 04/01/24 08:00 04/01/24 08:00 04/01/24 08:00 Temperature 97.9 F Pulse Rate 96 99 Respiratory Rate 27 H 24 H Blood Pressure 141/76 H Pulse Oximetry 98 98 Oxygen Delivery Nasal Cannula Oxygen Flow Rate 4 Fraction of Inspired Oxygen 04/01/24 08:55 04/01/24 08:55 04/01/24 09:08 Temperature Pulse Rate 97 Respiratory Rate 20 Blood Pressure Pulse Oximetry 97 100 Oxygen Delivery Nasal Cannula Nasal Cannula Oxygen Flow Rate 4 4 Fraction of Inspired Oxygen 36 36 04/01/24 09:08 04/01/24 10:00 04/01/24 10:00 Temperature 97.6 F Pulse Rate 91 96 89 Respiratory Rate 20 24 H Blood Pressure 141/76 H Pulse Oximetry 98 Oxygen Delivery Oxygen Flow Rate Fraction of Inspired Oxygen 04/01/24 12:00 Temperature 97.8 F Pulse Rate 102 H Respiratory Rate 27 H Blood Pressure 136/83 Pulse Oximetry 93 Oxygen Delivery Oxygen Flow Rate Fraction of Inspired Oxygen Intake/Output Intake/Output: Intake & Output 03/29/24 03/30/24 03/31/24 04/01/24 23:59 23:59 23:59 23:59 Intake Total 908.0 1615.7 1529.2 460 Output Total 2550 1825 2600 675 Balance -1642.0 -209.3 -1070.8 -215 Meds/Results Medications: Active Medications Generic Name Dose Route Start Last Admin Trade Name Freq PRN Reason Stop Dose Admin Acetaminophen 650 mg 03/30/24 20:43 Acetaminophen Elixir 325 Mg/10.15 Ml Udc PO Q6H PRN Mild Pain (1-3) or Fever Apixaban 5 mg 03/29/24 09:00 04/01/24 09:49 Apixaban 5 Mg Tablet PO 5 mg DAILY LAURA Administration Bisacodyl 10 mg 03/28/24 19:00 Bisacodyl 10 Mg Suppository RECTAL DAILY PRN Constipation Carvedilol 12.5 mg 04/01/24 21:00 Carvedilol 12.5 Mg Tablet PO Q12HR LAURA Dextrose 12.5 gm 03/28/24 13:45 Dextrose 50% 25 Gm/50 Ml Syringe IV PUSH PRN PRN Hypoglycemia Protocol Glucagon 1 mg 03/28/24 13:45 Glucagon For Inj 1 Mg Vial IM PRN PRN Hypoglycemia Protocol Glucose 15 gm 03/28/24 13:45 Glucose Oral Gel 15 Gm Of Glucse In 37.5 Gm Tube PO PRN PRN Hypoglycemia Protocol Hydralazine HCl 10 mg 03/30/24 20:43 03/30/24 20:55 Hydralazine Hcl 20 Mg/Ml Vial IV PUSH 10 mg Q4H PRN Administration Blood Pressure - High Dextrose 1,000 mls @ 100 mls/hr 03/28/24 13:45 Dextrose 5% 1,000 Ml IVPB PRN PRN Hypoglycemia Protocol Ceftriaxone Sodium 2 gm in 100 mls @ 200 mls/hr 03/29/24 09:00 04/01/24 08:40 Rocephin 2 Gm/Ns 100 Ml IVPB 04/03/24 08:59 Infused Q24H LAURA Infusion Doxycycline Hyclate 100 mg in 100 mls @ 100 mls/hr 03/28/24 13:50 04/01/24 09:52 Vibramycin 100 Mg/Ns 100 Ml IVPB 04/02/24 13:49 Infused Q12HR LAURA Infusion Insulin Aspart 3 - 6 units 04/01/24 12:00 04/01/24 11:57 Insulin Aspart (*Bkc) 100 Units/Ml SUB-Q Not Given WMHS LAURA Protocol Ipratropium [place] 0.5 mg 03/28/24 14:00 04/01/24 08:55 Ipratropium Br 0.02% Inh Soln 0.5 Mg/2.5 Ml Vial INHALATION 0.5 mg Q6HRT LAURA Administration Levalbuterol HCl 1.25 mg 03/28/24 14:00 04/01/24 08:55 Levalbuterol Neb 1.25 Mg/3 Ml INHALATION 1.25 mg Q6HRT LAURA Administration Levothyroxine Sodium 50 mcg 03/29/24 06:30 04/01/24 06:07 Levothyroxine Sodium 50 Mcg Tablet PO 50 mcg DAILY@0630 LAURA Administration Pantoprazole Sodium 40 mg 03/29/24 09:00 04/01/24 08:07 Pantoprazole Sodium Iv 40 Mg Vial IV PUSH 40 mg QAM LAURA Administration Polyethylene Glycol 17 gm 03/30/24 09:00 04/01/24 09:49 Polyethylene Glycol 3350 17 Gm Powd.Pack PO 17 gm QAM LAURA Administration Senna/Docusate Sodium 1 tab 03/30/24 09:00 04/01/24 09:49 Senna/Docusate Sodium Tablet PO 1 tab Q12HR LAURA Administration Radiology Results: ITS Impressions Abdomen X-Ray 03/28/24 10:10 IMPRESSION: 1. Nasogastric tube tip in the stomach. Head CT 03/28/24 10:49 Impression: No intracranial hemorrhage, mass, or acute infarct. Atrophy and chronic white matter changes, as above. Renal Ultrasound 03/28/24 15:15 IMPRESSION: 1. Mild right hydronephrosis. The previously seen stones in the right renal collecting system are no longer visualized patient concern for progression into the ureter with secondary obstruction. The stones were visible on the prior CT but not on intervening upper GI study performed on 03/04/2024 suggesting may be difficult to identify by a radiolucent would consider renal stone CT for further evaluation. Abdomen/Pelvis CT 03/29/24 09:39 IMPRESSION: 1. Mild bilateral hydronephrosis without evident urolithiasis. This is likely related to the wall thickening in the decompressed bladder itself likely related to cystitis. 2. Consolidation at the bilateral lower lungs suspicious for combination of atelectasis and pneumonia. 3. Persistent 7.5 cm ball of stool at the rectum with mild wall thickening and minimal perirectal stranding which can be seen with constipation/fecal impaction and secondary stercoral colitis. Chest X-Ray 04/01/24 06:26 Impression: Questionable minimal bibasilar pulmonary edema. NG tube in place. Labs Labs: Laboratory Results - last 24 hr 03/31/24 03/31/24 04/01/24 13:12 17:32 00:29 WBC RBC Hgb Hct MCV MCH MCHC RDW Plt Count MPV Immature Gran % (Auto) Neut % (Auto) Lymph % (Auto) [place] % (Auto) Eos % (Auto) Baso % (Auto) Lymph # (Auto) [place] # (Auto) Eos # (Auto) Baso # (Auto) Abs Immat Gran (auto) Absolute Neuts (auto) Absolute Nucleated RBC Nucleated RBC % Platelet Estimate Anisocytosis Ovalocytes Schistocytes Puncture Site Right radial ABG pH 7.394 ABG pCO2 55.6 H ABG pO2 104.7 H ABG PO2/FiO2 Ratio 2.62 ABG HCO3 33.2 H ABG O2 Saturation 97.7 ABG O2 Content 14.5 L ABG Base Excess 7.1 A-a Gradient 116.6 Oxyhemoglobin 97.2 Carboxyhemoglobin Methemoglobin Reduced Hemoglobin Total Hemoglobin 10.5 L O2 Delivery Device Ventilator O2 Liters/Min 0.0 Minute Volume Not Reportable Vent Rate Not Reportable Vent Mode Spontaneous FiO2 40 Tidal Volume Not Reportable PEEP 8 Peak Inspir Pressure Not Reportable Pressure Support 10 Sodium Potassium Chloride Carbon Dioxide Anion Gap BUN Creatinine Estim Creat Clear Calc Estimated GFR Glucose POC Capillary Glucose 125 H 97 Calcium Phosphorus Magnesium Total Bilirubin AST ALT Alkaline Phosphatase Total Protein Albumin 04/01/24 04/01/24 04/01/24 05:05 06:06 06:25 WBC 8.1 RBC 3.50 L Hgb 9.6 L Hct 33.1 L MCV 94.6 MCH 27.4 MCHC 29.0 L RDW 16.8 H Plt Count 133 L MPV 9.8 Immature Gran % (Auto) 0.4 Neut % (Auto) 73.8 H Lymph % (Auto) 13.7 L [place] % (Auto) 8.8 H Eos % (Auto) 3.1 Baso % (Auto) 0.2 Lymph # (Auto) 1.11 [place] # (Auto) 0.7 H Eos # (Auto) 0.3 Baso # (Auto) 0.0 Abs Immat Gran (auto) 0.03 Absolute Neuts (auto) 6.0 Absolute Nucleated RBC 0.000 Nucleated RBC % 0.0 Platelet Estimate Decreased Anisocytosis 1+ Ovalocytes 1+ Schistocytes None seen Puncture Site Left radial ABG pH 7.338 L ABG pCO2 65.7 H* ABG pO2 78.0 L ABG PO2/FiO2 Ratio 1.95 ABG HCO3 34.5 H ABG O2 Saturation 94.4 L ABG O2 Content 13.7 L ABG Base Excess 7.1 A-a Gradient 131.6 Oxyhemoglobin 93.8 Carboxyhemoglobin 0.5 Methemoglobin 0.1 Reduced Hemoglobin 5.6 H Total Hemoglobin 10.3 L O2 Delivery Device Nasal cannula O2 Liters/Min 5.0 Minute Volume Vent Rate Vent Mode FiO2 40 Tidal Volume PEEP Peak Inspir Pressure Pressure Support Sodium 144 Potassium 4.0 Chloride 103 Carbon Dioxide 36 H Anion Gap 5 BUN 45 H Creatinine 1.32 H Estim Creat Clear Calc 57 Estimated GFR 53 L Glucose 102 POC Capillary Glucose 85 Calcium 9.8 Phosphorus 3.7 Magnesium 2.0 Total Bilirubin 0.7 AST 18 ALT 15 Alkaline Phosphatase 68 Total Protein 7.0 Albumin 3.1 L 04/01/24 11:13 WBC RBC Hgb Hct MCV MCH MCHC RDW Plt Count MPV Immature Gran % (Auto) Neut % (Auto) Lymph % (Auto) [place] % (Auto) Eos % (Auto) Baso % (Auto) Lymph # (Auto) [place] # (Auto) Eos # (Auto) Baso # (Auto) Abs Immat Gran (auto) Absolute Neuts (auto) Absolute Nucleated RBC Nucleated RBC % Platelet Estimate Anisocytosis Ovalocytes Schistocytes Puncture Site ABG pH ABG pCO2 ABG pO2 ABG PO2/FiO2 Ratio ABG HCO3 ABG O2 Saturation ABG O2 Content ABG Base Excess A-a Gradient Oxyhemoglobin Carboxyhemoglobin Methemoglobin Reduced Hemoglobin Total Hemoglobin O2 Delivery Device O2 Liters/Min Minute Volume Vent Rate Vent Mode FiO2 Tidal Volume PEEP Peak Inspir Pressure Pressure Support Sodium Potassium Chloride Carbon Dioxide Anion Gap BUN Creatinine Estim Creat Clear Calc Estimated GFR Glucose POC Capillary Glucose 118 H Calcium Phosphorus Magnesium Total Bilirubin AST ALT Alkaline Phosphatase Total Protein Albumin Quality VTE Prophylaxis VTE prophylaxis: mechanical ordered and pharmacologic ordered
[2024-04-01] MEDS: EMPAGLIFLOZIN 5 MG 5 EACH PO (15:13)
[2024-04-01] MEDS: BISACODYL 10 MG SUPPOSITORY RECTAL (15:38)
--- NOTE | 2024-04-01 15:50 | WPDUROPN2 ---
Progress Note: A&P Assessment and Plan (1) Acute urinary retention: Code(s): R33.8 - Other retention of urine Status: Acute (2) Acute on chronic renal insufficiency: Code(s): N28.9 - Disorder of kidney and ureter, unspecified; N18.9 - Chronic kidney disease, unspecified Status: Acute Plan 74 yr old male admitted with respiratory failure and fecal impaction with evidence of urinary retention, acute on chronic renal insufficiency, and mild hydronephrosis due to fecal impaction - blanton in place draining clear yellow urine with good UOP - Cr improved to 1.3 - continue aggressive bowel regimen - urine culture negative - OK for void trial after his constipation has been addressed Subjective Subjective Date/Time Seen: 04/01/24 15:50 Interval history: NAEO; Patient extubated over the weekend, alert, talkative Per [employer], still no bowel movement Hesitant to attempt void trial if rectal stool ball has not been addressed Exam Const: General: comfortable and no acute distress Resp: Other: Supplemental O2 nasal cannula Urinary Catheter: Urinary Catheter: patent and draining and urine clear (yellow) Psych: Affect: normal affect Objective Data Vital Signs Vital Signs: Vital Signs - 24 hr 03/31/24 16:00 03/31/24 16:00 03/31/24 16:00 Temperature 96.6 F L Pulse Rate 86 91 86 Respiratory Rate 23 H 25 H Blood Pressure 115/70 Pulse Oximetry 96 98 Oxygen Delivery Nasal Cannula Oxygen Flow Rate 2 Fraction of Inspired Oxygen 03/31/24 18:00 03/31/24 18:00 03/31/24 18:00 Temperature Pulse Rate 88 88 81 Respiratory Rate 22 H 27 H Blood Pressure 123/67 Pulse Oximetry 99 Oxygen Delivery Oxygen Flow Rate Fraction of Inspired Oxygen 03/31/24 20:00 03/31/24 20:00 03/31/24 20:00 Temperature 96.9 F L Pulse Rate 87 97 Respiratory Rate 23 H Blood Pressure 119/71 Pulse Oximetry 96 96 Oxygen Delivery Nasal Cannula Oxygen Flow Rate 4 Fraction of Inspired Oxygen 03/31/24 21:03 03/31/24 21:06 03/31/24 21:18 Temperature Pulse Rate 82 82 90 Respiratory Rate 20 23 H Blood Pressure Pulse Oximetry 95 Oxygen Delivery Nasal Cannula Oxygen Flow Rate 4 Fraction of Inspired Oxygen 03/31/24 22:00 03/31/24 22:00 04/01/24 00:00 Temperature Pulse Rate 80 80 Respiratory Rate 22 H Blood Pressure 133/81 Pulse Oximetry 97 93 Oxygen Delivery Nasal Cannula Oxygen Flow Rate 4 Fraction of Inspired Oxygen 04/01/24 00:00 04/01/24 00:00 04/01/24 02:00 Temperature 96.9 F L Pulse Rate 88 102 H 86 Respiratory Rate 19 25 H Blood Pressure 114/74 137/88 Pulse Oximetry 93 98 Oxygen Delivery Oxygen Flow Rate Fraction of Inspired Oxygen 04/01/24 02:00 04/01/24 02:41 04/01/24 02:53 Temperature Pulse Rate 88 92 90 Respiratory Rate 19 19 Blood Pressure Pulse Oximetry Oxygen Delivery Oxygen Flow Rate Fraction of Inspired Oxygen 04/01/24 04:00 04/01/24 04:00 04/01/24 04:00 Temperature 97.5 F L Pulse Rate 95 100 Respiratory Rate 22 H Blood Pressure 123/84 Pulse Oximetry 92 92 Oxygen Delivery Nasal Cannula Oxygen Flow Rate 4 Fraction of Inspired Oxygen 04/01/24 06:00 04/01/24 06:00 04/01/24 08:00 Temperature Pulse Rate 96 90 Respiratory Rate 23 H 27 H Blood Pressure 132/84 Pulse Oximetry 96 98 Oxygen Delivery Nasal Cannula Oxygen Flow Rate 4 Fraction of Inspired Oxygen 04/01/24 08:00 04/01/24 08:00 04/01/24 08:55 Temperature 97.9 F Pulse Rate 96 99 Respiratory Rate 24 H Blood Pressure 141/76 H Pulse Oximetry 98 97 Oxygen Delivery Nasal Cannula Oxygen Flow Rate 4 Fraction of Inspired Oxygen 36 04/01/24 08:55 04/01/24 09:08 04/01/24 09:08 Temperature Pulse Rate 97 91 Respiratory Rate 20 20 Blood Pressure Pulse Oximetry 100 Oxygen Delivery Nasal Cannula Oxygen Flow Rate 4 Fraction of Inspired Oxygen 36 04/01/24 10:00 04/01/24 10:00 04/01/24 12:00 Temperature 97.6 F 97.8 F Pulse Rate 96 89 102 H Respiratory Rate 24 H 27 H Blood Pressure 141/76 H 136/83 Pulse Oximetry 98 93 Oxygen Delivery Oxygen Flow Rate Fraction of Inspired Oxygen 04/01/24 12:00 04/01/24 12:00 04/01/24 14:00 Temperature Pulse Rate 113 H 96 Respiratory Rate 27 H Blood Pressure Pulse Oximetry 95 Oxygen Delivery Nasal Cannula Oxygen Flow Rate 4 Fraction of Inspired Oxygen 04/01/24 14:45 04/01/24 14:45 04/01/24 14:58 Temperature Pulse Rate 99 107 H Respiratory Rate 24 H 24 H Blood Pressure Pulse Oximetry 95 Oxygen Delivery Nasal Cannula Oxygen Flow Rate 3 Fraction of Inspired Oxygen 32 Intake/Output Intake/Output: Intake & Output 03/29/24 03/30/24 03/31/24 04/01/24 23:59 23:59 23:59 23:59 Intake Total 908.0 1615.7 1529.2 580 Output Total 2550 1825 2600 675 Balance -1642.0 -209.3 -1070.8 -95 Meds/Results Medications: Active Medications Generic Name Dose Route Start Last Admin Trade Name Freq PRN Reason Stop Dose Admin Acetaminophen 650 mg 03/30/24 20:43 Acetaminophen Elixir 325 Mg/10.15 Ml Udc PO Q6H PRN Mild Pain (1-3) or Fever Apixaban 5 mg 03/29/24 09:00 04/01/24 09:49 Apixaban 5 Mg Tablet PO 5 mg DAILY LAURA Administration Bisacodyl 10 mg 03/28/24 19:00 04/01/24 15:38 Bisacodyl 10 Mg Suppository RECTAL 10 mg DAILY PRN Administration Constipation Carvedilol 12.5 mg 04/01/24 21:00 Carvedilol 12.5 Mg Tablet PO Q12HR LAURA Dextrose 12.5 gm 03/28/24 13:45 Dextrose 50% 25 Gm/50 Ml Syringe IV PUSH PRN PRN Hypoglycemia Protocol Glucagon 1 mg 03/28/24 13:45 Glucagon For Inj 1 Mg Vial IM PRN PRN Hypoglycemia Protocol Glucose 15 gm 03/28/24 13:45 Glucose Oral Gel 15 Gm Of Glucse In 37.5 Gm Tube PO PRN PRN Hypoglycemia Protocol Hydralazine HCl 10 mg 03/30/24 20:43 03/30/24 20:55 Hydralazine Hcl 20 Mg/Ml Vial IV PUSH 10 mg Q4H PRN Administration Blood Pressure - High Dextrose 1,000 mls @ 100 mls/hr 03/28/24 13:45 Dextrose 5% 1,000 Ml IVPB PRN PRN Hypoglycemia Protocol Ceftriaxone Sodium 2 gm in 100 mls @ 200 mls/hr 03/29/24 09:00 04/01/24 08:40 Rocephin 2 Gm/Ns 100 Ml IVPB 04/03/24 08:59 Infused Q24H LAURA Infusion Doxycycline Hyclate 100 mg in 100 mls @ 100 mls/hr 03/28/24 13:50 04/01/24 09:52 Vibramycin 100 Mg/Ns 100 Ml IVPB 04/02/24 13:49 Infused Q12HR LAURA Infusion Insulin Aspart 3 - 6 units 04/01/24 12:00 04/01/24 11:57 Insulin Aspart (*Bkc) 100 Units/Ml SUB-Q Not Given [facility] Protocol Ipratropium [place] 0.5 mg 03/28/24 14:00 04/01/24 14:45 Ipratropium Br 0.02% Inh Soln 0.5 Mg/2.5 Ml Vial INHALATION 0.5 mg Q6HRT LAURA Administration Levalbuterol HCl 1.25 mg 03/28/24 14:00 04/01/24 14:45 Levalbuterol Neb 1.25 Mg/3 Ml INHALATION 1.25 mg Q6HRT LAURA Administration Levothyroxine Sodium 50 mcg 03/29/24 06:30 04/01/24 06:07 Levothyroxine Sodium 50 Mcg Tablet PO 50 mcg DAILY@0630 LAURA Administration Empagliflozin 5 Mg 5 each 04/01/24 13:15 04/01/24 15:13 PO 05/01/24 13:14 5 each DAILY LAURA Administration Pantoprazole Sodium 40 mg 03/29/24 09:00 04/01/24 08:07 Pantoprazole Sodium Iv 40 Mg Vial IV PUSH 40 mg QAM LAURA Administration Polyethylene Glycol 17 gm 03/30/24 09:00 04/01/24 09:49 Polyethylene Glycol 3350 17 Gm Powd.Pack PO 17 gm QAM LAURA Administration Senna/Docusate Sodium 1 tab 03/30/24 09:00 04/01/24 09:49 Senna/Docusate Sodium Tablet PO 1 tab Q12HR LAURA Administration Radiology Results: ITS Impressions Abdomen X-Ray 03/28/24 10:10 IMPRESSION: 1. Nasogastric tube tip in the stomach. Head CT 03/28/24 10:49 Impression: No intracranial hemorrhage, mass, or acute infarct. Atrophy and chronic white matter changes, as above. Renal Ultrasound 03/28/24 15:15 IMPRESSION: 1. Mild right hydronephrosis. The previously seen stones in the right renal collecting system are no longer visualized patient concern for progression into the ureter with secondary obstruction. The stones were visible on the prior CT but not on intervening upper GI study performed on 03/04/2024 suggesting may be difficult to identify by a radiolucent would consider renal stone CT for further evaluation. Abdomen/Pelvis CT 03/29/24 09:39 IMPRESSION: 1. Mild bilateral hydronephrosis without evident urolithiasis. This is likely related to the wall thickening in the decompressed bladder itself likely related to cystitis. 2. Consolidation at the bilateral lower lungs suspicious for combination of atelectasis and pneumonia. 3. Persistent 7.5 cm ball of stool at the rectum with mild wall thickening and minimal perirectal stranding which can be seen with constipation/fecal impaction and secondary stercoral colitis. Chest X-Ray 04/01/24 06:26 Impression: Questionable minimal bibasilar pulmonary edema. NG tube in place. Labs Labs: Laboratory Results - last 24 hr 03/31/24 04/01/24 04/01/24 17:32 00:29 05:05 WBC RBC Hgb Hct MCV MCH MCHC RDW Plt Count MPV Immature Gran % (Auto) Neut % (Auto) Lymph % (Auto) [place] % (Auto) Eos % (Auto) Baso % (Auto) Lymph # (Auto) [place] # (Auto) Eos # (Auto) Baso # (Auto) Abs Immat Gran (auto) Absolute Neuts (auto) Absolute Nucleated RBC Nucleated RBC % Platelet Estimate Anisocytosis Ovalocytes Schistocytes Puncture Site Left radial ABG pH 7.338 L ABG pCO2 65.7 H* ABG pO2 78.0 L ABG PO2/FiO2 Ratio 1.95 ABG HCO3 34.5 H ABG O2 Saturation 94.4 L ABG O2 Content 13.7 L ABG Base Excess 7.1 A-a Gradient 131.6 Oxyhemoglobin 93.8 Carboxyhemoglobin 0.5 Methemoglobin 0.1 Reduced Hemoglobin 5.6 H Total Hemoglobin 10.3 L O2 Delivery Device Nasal cannula O2 Liters/Min 5.0 FiO2 40 Sodium Potassium Chloride Carbon Dioxide Anion Gap BUN Creatinine Estim Creat Clear Calc Estimated GFR Glucose POC Capillary Glucose 125 H 97 Calcium Phosphorus Magnesium Total Bilirubin AST ALT Alkaline Phosphatase Total Protein Albumin 02/04/01/24 04/01/24 06:06 06:25 11:13 WBC 8.1 RBC 3.50 L Hgb 9.6 L Hct 33.1 L MCV 94.6 MCH 27.4 MCHC 29.0 L RDW 16.8 H Plt Count 133 L MPV 9.8 Immature Gran % (Auto) 0.4 Neut % (Auto) 73.8 H Lymph % (Auto) 13.7 L [place] % (Auto) 8.8 H Eos % (Auto) 3.1 Baso % (Auto) 0.2 Lymph # (Auto) 1.11 [place] # (Auto) 0.7 H Eos # (Auto) 0.3 Baso # (Auto) 0.0 Abs Immat Gran (auto) 0.03 Absolute Neuts (auto) 6.0 Absolute Nucleated RBC 0.000 Nucleated RBC % 0.0 Platelet Estimate Decreased Anisocytosis 1+ Ovalocytes 1+ Schistocytes None seen Puncture Site ABG pH ABG pCO2 ABG pO2 ABG PO2/FiO2 Ratio ABG HCO3 ABG O2 Saturation ABG O2 Content ABG Base Excess A-a Gradient Oxyhemoglobin Carboxyhemoglobin Methemoglobin Reduced Hemoglobin Total Hemoglobin O2 Delivery Device O2 Liters/Min FiO2 Sodium 144 Potassium 4.0 Chloride 103 Carbon Dioxide 36 H Anion Gap 5 BUN 45 H Creatinine 1.32 H Estim Creat Clear Calc 57 Estimated GFR 53 L Glucose 102 POC Capillary Glucose 85 118 H Calcium 9.8 Phosphorus 3.7 Magnesium 2.0 Total Bilirubin 0.7 AST 18 ALT 15 Alkaline Phosphatase 68 Total Protein 7.0 Albumin 3.1 L
[2024-04-01 16:26] LABS: Glucose Point of Care 117 mg/dl (65-105)
[2024-04-01 21:00] LABS: Glucose Point of Care 163 mg/dl (65-105)
[2024-04-01] MEDS: carvediloL 12.5 MG TABLET PO (21:22)
[2024-04-02] VITALS (23 sets, daily range): BP systolic 119–142; BP diastolic 69–107; PULSE 73–99; RESP 16–32; TEMP 35.9–36.7; O2SAT 93–100
[2024-04-02] MEDS: IPRATROPIUM BR 0.02% INH SOLN 0.5 MG/2.5 ML VIAL INHALATION ×4 (01:55→20:06)
[2024-04-02] MEDS: LEVALBUTEROL NEB 1.25 MG/3 ML INHALATION ×4 (01:55→20:06)
[2024-04-02] MEDS: LEVOTHYROXINE SODIUM 50 MCG TABLET PO (06:07)
[2024-04-02 07:21] LABS: Basophils Percent Auto 0.2 % (0.2-1.2); Eosinophils Absolute Auto 0.3 K/mm3 (0-0.3); Eosinophils Percent Auto 2.9 % (0-4.4); Hematocrit 31.1 % (42.0-52.0); Hemoglobin 9.3 g/dL (14.0-18.0); Immature Granulocyte Absolute 0.06 K/mm3 (0.00-0.031); Immature Granulocyte Percent A 0.6 % (0-0.5); Lymphocytes Percent Auto 14.2 % (18.3-44.2); Mean Corpuscular HGB Conc 29.9 g/dl (32-36); Mean Corpuscular Hemoglobin 28.1 pg (26-34); Mean Platelet Volume 9.8 fl (7.4-10.4); Monocytes Absolute Auto 0.9 K/mm3 (0.1-0.6); Monocytes Percent Auto 9.4 % (2.6-8.5); Neutrophils Absolute Auto 7.2 K/mm3 (1.3-6.7); Neutrophils Percent Auto 72.7 % (45.5-73.1); Platelet Count Result 147 k/mm3 (150-375); Red Blood Count 3.31 M/mm3 (4.6-6.20); Red Cell Distribution Width 16.7 % (11.5-14.5); White Blood Count 9.9 K/mm3 (4.5-10.0)
[2024-04-02 07:25] LABS: Glucose Point of Care 87 mg/dl (65-105)
[2024-04-02 07:44] LABS: Alanine Aminotransferase 13 U/L (6-50); Albumin Level 3.2 g/dL (3.5-5.1); Alkaline Phosphatase 73 U/L (38-126); Anion Gap 4 mmol/L (4-12); Aspartate Amino Transferase 17 U/L (17-59); Bilirubin,Total 0.8 mg/dL (0.2-1.3); Blood Urea Nitrogen 39 mg/dL (9-20); Calcium 9.9 mg/dL (8.4-10.2); Carbon Dioxide 37 mmol/L (22-30); Chloride 102 mmol/L (98-107); Estimated CRCL calculation 52 ml/min; Estimated Glomerular Filt Rate 47; Glucose 106 mg/dL (65-110); Potassium 4.3 mmol/L (3.4-5.0); Sodium 143 mmol/L (137-145)
[2024-04-02] MEDS: polyethylene glycoL 3350 17 GM POWD.PACK PO (08:40)
[2024-04-02] MEDS: DOXYCYCLINE 100 MG/NS 100 ML 100 MG/100 ML BAG IVPB (08:41)
[2024-04-02] MEDS: APIXABAN 5 MG TABLET PO (08:41)
[2024-04-02] MEDS: SENNA/DOCUSATE SODIUM TABLET 1 TAB PO ×2 (08:41→21:00)
[2024-04-02] MEDS: PANTOPRAZOLE SODIUM IV 40 MG VIAL IV PUSH (08:41)
[2024-04-02] MEDS: carvediloL 12.5 MG TABLET PO ×2 (08:41→21:00)
[2024-04-02] MEDS: cefTRIAXone 2 GM/NS 100 ML 2 GM/100 ML BAG IVPB (08:42)
[2024-04-02] MEDS: EMPAGLIFLOZIN 5 MG 5 EACH PO (08:42)
[2024-04-02 09:14] LABS: Anisocytosis 1+; Hypochromasia 1+; Platelet Estimate Slightly Decreased (Adequate); Polychromasia 1+
[2024-04-02 09:15] LABS: Schistocytes None Seen
--- NOTE | 2024-04-02 11:18 | PM.IMPN ---
Progress Note: A&P Assessment and Plan (1) Acute respiratory failure with hypercapnia: Code(s): J96.02 - Acute respiratory failure with hypercapnia Status: Acute Assessment and Plan: 03/28:Patient presented with respiratory distress, shortness of breath, altered mental status -initial ABG showed pH of 7.19 and pCO2 of 117, patient was obtunded, BiPAP was not an option due to altered mental status so that patient was intubated in the ER on 03/28 -etiology: COPD exacerbation, hypercapnic respiratory failure, pneumonia, obesity hypoventilation syndrome, obstructive sleep apnea, congestive heart failure, pulmonary hypertension -03/31: extubated successfully Continue bronchodilators - RSV, COVID and influenza are negative -ABG done today shows hypercarbia. Will order BiPAP p.r.n. and at night. As per daughter patient has BiPAP 100 at [facility] but refuses to wear. -speech therapy has been ordered for bedside swallow evaluation -PT and OT to evaluate patient (2) Shock: Code(s): R57.9 - Shock, unspecified Status: Acute Assessment and Plan: RESOLVED Patient presented with hypotension, anemia related to sepsis/infection/hypovolemia, UTI Patient was treated with IV fluids and vasopressors. Now off of both -03/28: left-sided PICC line was inserted in the ER -urine output has been good, creatinine has normalized - monitor urine output and renal function -continue ceftriaxone, and doxycycline (03/28) for a total of 5 days 03/31: Discontinued vancomycin Negative so -MRSA screen was positive -03/28: blood cultures are negative -03/28: urine cultures with no growth -03/28: Sputum culture -growth of normal oropharyngeal terence (3) Acute worsening of stage 3 chronic kidney disease: Code(s): N18.30 - Chronic kidney disease, stage 3 unspecified Status: Acute Assessment and Plan: Patient has history of chronic kidney disease stage 3 (baseline creatinine seems to be 1.4-1.8). Likely related to hypotension from shock, infection, UTI, hypovolemia -patient presented with a creatinine of 2.67 this admission -adequately fluid-resuscitated negative blood cultures 03/29/2024 only -status post IV fluids and vasopressors. Patient also received albumin Creatinine has now improved and is close to baseline. -continue to monitor urine output, renal function electrolytes -mild hydronephrosis on renal ultrasound was noted. Urology was consulted. Repeat CT scan was done which did not show any stone or obstruction 03/29: CT abdomen and pelvis IMPRESSION: 1. Mild bilateral hydronephrosis without evident urolithiasis. This is likely related to the wall thickening in the decompressed bladder itself likely related to cystitis. 2. Consolidation at the bilateral lower lungs suspicious for combination of atelectasis and pneumonia. 3. Persistent 7.5 cm ball of stool at the rectum with mild wall thickening and minimal perirectal stranding which can be seen with constipation/fecal impaction and secondary stercoral colitis. (4) Atrial fibrillation: Qualifiers: Atrial fibrillation type: unspecified Qualified Code(s): I48.91 - Unspecified atrial fibrillation Code(s): I48.91 - Unspecified atrial fibrillation Status: Chronic Assessment and Plan: Patient has a history of atrial fibrillation on Eliquis and the nursing -currently was in AFib, rate controlled -continue Eliquis and Coreg (5) Chronic obstructive pulmonary disease: Code(s): J44.9 - Chronic obstructive pulmonary disease, unspecified Status: Acute Assessment and Plan: History of COPD, on 4 L home oxygen -continue antibiotics, bronchodilator -will hold steroids as patient does not have any wheezing -and BiPAP p.r.n. and at night (6) Diabetes mellitus: Code(s): E11.9 - Type 2 diabetes mellitus without complications Status: Chronic Assessment and Plan: Accu-Cheks and sliding scale insulin (7) Heart failure with preserved ejection fraction: Code(s): I50.30 - Unspecified diastolic (congestive) heart failure Status: Acute Assessment and Plan: ProBNP was 9230 Cardiology following 03/29/2024: Echocardiogram Summary 1. Complete two-dimensional, color flow and Doppler transthoracic echocardiogram is performed. 2. Left ventricular chamber dimension is moderately enlarged. 3. Left ventricular systolic function is moderately globally reduced, estimated at 40-45%. 4. The left ventricular diastolic function is normal. 5. E/e' 9 is minimally elevated. 6. Left atrial chamber dimension is moderately enlarged. 7. Right atrial chamber dimension is moderately enlarged. 8. There is mild aortic valve sclerosis. 9. There is mild mitral valve regurgitation. 10. There is mild to moderate tricuspid valve regurgitation. 11. Severe pulmonary hypertension, estimated pulmonary arterial systolic pressure is 64 mmHg. Diuretics are on hold (8) Hypothyroidism: Code(s): E03.9 - Hypothyroidism, unspecified Status: Acute Assessment and Plan: Continue levothyroxine (9) Urinary tract infection: Code(s): N39.0 - Urinary tract infection, site not specified Status: Acute Assessment and Plan: UA was reflective of UTI, -Continue antibiotics as above, urine cultures negative so far (10) Fecal impaction: Code(s): K56.41 - Fecal impaction Status: Acute Assessment and Plan: Fecal impaction with stool ball at the rectum as seen on the CT scan of the abdomen and pelvis as above -continue MiraLax and docusate with senna -status post soapsuds enema on 03/30 Plan DVT prophylaxis: Eliquis Stress ulcer prophylaxis: Protonix Nutrition: Diet ordered PT and OT consulted Code Status: Full code. I had long discussion with patient's daughter at bedside who is also patient's POA. She told me the patient was intubated twice in September and October of last year and now is his 3rd intubation. He has been in [facility] since last year. He had stroke many years ago and now has been gradually deteriorating overall. She is aware of his medical problems including congestive heart failure, chronic kidney disease, COPD. She is aware that most of her conditions are not curable. She does not believe patient would want to go back on the ventilator although she is going to discuss with other family members before making any final decision. Subjective Date/time seen: 04/02/24 Patient is awake but not oriented. He denies any new complaints. He is on 3 to nasal cannula. Acceptable urine output. Patient denies fever, chest pain, shortness of breath, cough, nausea vomiting, abdominal pain,, diarrhea, headache or constipation. All other systems were reviewed and were negative Afebrile Review of Systems Review of Systems: All systems reviewed & are unremarkable except as noted in HPI and below (Subjective) Exam Narrative: General: Pleasant gentleman, in no acute distress slurred speech which is baseline HEENT:? Pupils are pinpoint but equal and reactive, sclerae ischemia, Neck:? Supple, thick neck Respiratory:? Coarse breath sounds bilaterally, decreased at bases, no wheezing, adequate air entry, lip pursing with breathing mild tachypnea but no respiratory distress Cardiac:? Irregularly irregular, tachycardia Abdomen:? soft, nontender, nondistended, morbidly obese, hypoactive bowel sound Extremities:? Trace bilateral lower extremity edema, pitting edema on dorsum of the feet bilaterally. Palpable pedal pulses Neuro:? Patient is awake, alert, answers questions and follows simple commands alert but not oriented Skin:? Left big toe nail seems to have fallen off Psych:? Normal mentation and affect Objective Data Vital Signs Vital Signs: Vital Signs - 24 hr 04/01/24 12:00 04/01/24 12:00 04/01/24 12:00 Temperature 36.6 C Pulse Rate 102 H 113 H Respiratory Rate 27 H 27 H Blood Pressure 136/83 Pulse Oximetry 93 95 Oxygen Delivery Nasal Cannula Oxygen Flow Rate 4 Fraction of Inspired Oxygen 04/01/24 14:00 04/01/24 14:45 04/01/24 14:45 Temperature Pulse Rate 96 99 Respiratory Rate 24 H Blood Pressure Pulse Oximetry 95 Oxygen Delivery Nasal Cannula Oxygen Flow Rate 3 Fraction of Inspired Oxygen 32 04/01/24 14:58 04/01/24 16:00 04/01/24 16:00 Temperature 36.6 C Pulse Rate 107 H 106 H 106 H Respiratory Rate 24 H 25 H Blood Pressure 138/94 H Pulse Oximetry 97 Oxygen Delivery Oxygen Flow Rate Fraction of Inspired Oxygen 04/01/24 16:00 04/01/24 18:00 04/01/24 20:00 Temperature Pulse Rate 108 H Respiratory Rate 27 H Blood Pressure Pulse Oximetry 98 97 Oxygen Delivery Nasal Cannula Nasal Cannula Oxygen Flow Rate 5 5 Fraction of Inspired Oxygen 04/01/24 20:00 04/01/24 20:00 04/01/24 20:37 Temperature 36.4 C Pulse Rate 94 94 104 H Respiratory Rate 22 H 24 H Blood Pressure 137/81 Pulse Oximetry 100 Oxygen Delivery Oxygen Flow Rate Fraction of Inspired Oxygen 04/01/24 20:55 04/01/24 21:05 04/01/24 21:22 Temperature Pulse Rate 93 96 Respiratory Rate 20 Blood Pressure Pulse Oximetry 96 Oxygen Delivery Nasal Cannula Oxygen Flow Rate 3 Fraction of Inspired Oxygen 04/02/24 00:00 04/02/24 00:00 04/02/24 00:00 Temperature Pulse Rate 85 85 Respiratory Rate 27 H Blood Pressure 139/82 Pulse Oximetry 100 100 Oxygen Delivery Nasal Cannula Oxygen Flow Rate 5 Fraction of Inspired Oxygen 04/02/24 01:55 04/02/24 02:08 04/02/24 04:00 Temperature Pulse Rate 73 76 Respiratory Rate 20 20 Blood Pressure Pulse Oximetry 99 Oxygen Delivery Nasal Cannula Oxygen Flow Rate 5 Fraction of Inspired Oxygen 04/02/24 04:00 04/02/24 04:00 04/02/24 08:00 Temperature 36.6 C 35.9 C L Pulse Rate 83 83 90 Respiratory Rate 18 23 H Blood Pressure 119/107 H 133/83 Pulse Oximetry 96 98 Oxygen Delivery Oxygen Flow Rate Fraction of Inspired Oxygen 04/02/24 08:28 04/02/24 08:28 04/02/24 08:39 Temperature Pulse Rate 94 90 Respiratory Rate 26 H 23 H Blood Pressure Pulse Oximetry 98 Oxygen Delivery Nasal Cannula Oxygen Flow Rate 5 Fraction of Inspired Oxygen 04/02/24 08:41 Temperature Pulse Rate 93 Respiratory Rate Blood Pressure Pulse Oximetry Oxygen Delivery Oxygen Flow Rate Fraction of Inspired Oxygen Intake/Output Intake/Output: Intake & Output 03/30/24 03/31/24 04/01/24 04/02/24 23:59 23:59 23:59 23:59 Intake Total 1615.7 1529.2 1640 597 Output Total 1825 2600 1375 700 Balance -209.3 -1070.8 265 -103 Meds/Results Medications: Active Medications Generic Name Dose Route Start Last Admin Trade Name Freq PRN Reason Stop Dose Admin Acetaminophen 650 mg 03/30/24 20:43 Acetaminophen Elixir 325 Mg/10.15 Ml Udc PO Q6H PRN Mild Pain (1-3) or Fever Apixaban 5 mg 03/29/24 09:00 04/02/24 08:41 Apixaban 5 Mg Tablet PO 5 mg DAILY LAURA Administration Bisacodyl 10 mg 03/28/24 19:00 04/01/24 15:38 Bisacodyl 10 Mg Suppository RECTAL 10 mg DAILY PRN Administration Constipation Carvedilol 12.5 mg 04/01/24 21:00 04/02/24 08:41 Carvedilol 12.5 Mg Tablet PO 12.5 mg Q12HR LAURA Administration Dextrose 12.5 gm 03/28/24 13:45 Dextrose 50% 25 Gm/50 Ml Syringe IV PUSH PRN PRN Hypoglycemia Protocol Glucagon 1 mg 03/28/24 13:45 Glucagon For Inj 1 Mg Vial IM PRN PRN Hypoglycemia Protocol Glucose 15 gm 03/28/24 13:45 Glucose Oral Gel 15 Gm Of Glucse In 37.5 Gm Tube PO PRN PRN Hypoglycemia Protocol Hydralazine HCl 10 mg 03/30/24 20:43 03/30/24 20:55 Hydralazine Hcl 20 Mg/Ml Vial IV PUSH 10 mg Q4H PRN Administration Blood Pressure - High Dextrose 1,000 mls @ 100 mls/hr 03/28/24 13:45 Dextrose 5% 1,000 Ml IVPB PRN PRN Hypoglycemia Protocol Ceftriaxone Sodium 2 gm in 100 mls @ 200 mls/hr 03/29/24 09:00 04/02/24 08:42 Rocephin 2 Gm/Ns 100 Ml IVPB 04/03/24 08:59 200 mls/hr Q24H LAURA Administration Doxycycline Hyclate 100 mg in 100 mls @ 100 mls/hr 03/28/24 13:50 04/02/24 08:41 Vibramycin 100 Mg/Ns 100 Ml IVPB 04/02/24 13:49 100 mls/hr Q12HR LAURA Administration Insulin Aspart 3 - 6 units 04/01/24 12:00 04/02/24 08:38 Insulin Aspart (*Bkc) 100 Units/Ml SUB-Q Not Given WMHS LAURA Protocol Ipratropium Avery 0.5 mg 03/28/24 14:00 04/02/24 08:27 Ipratropium Br 0.02% Inh Soln 0.5 Mg/2.5 Ml Vial INHALATION 0.5 mg Q6HRT LAURA Administration Levalbuterol HCl 1.25 mg 03/28/24 14:00 04/02/24 08:28 Levalbuterol Neb 1.25 Mg/3 Ml INHALATION 1.25 mg Q6HRT LAURA Administration Levothyroxine Sodium 50 mcg 03/29/24 06:30 04/02/24 06:07 Levothyroxine Sodium 50 Mcg Tablet PO 50 mcg DAILY@0630 LAURA Administration Empagliflozin 5 Mg 5 each 04/01/24 13:15 04/02/24 08:42 PO 05/01/24 13:14 5 each DAILY LAURA Administration Pantoprazole Sodium 40 mg 03/29/24 09:00 04/02/24 08:41 Pantoprazole Sodium Iv 40 Mg Vial IV PUSH 40 mg QAM LAURA Administration Polyethylene Glycol 17 gm 03/30/24 09:00 04/02/24 08:40 Polyethylene Glycol 3350 17 Gm Powd.Pack PO 17 gm QAM LAURA Administration Senna/Docusate Sodium 1 tab 03/30/24 09:00 04/02/24 08:41 Senna/Docusate Sodium Tablet PO 1 tab Q12HR LAURA Administration Radiology Results: ITS Impressions Abdomen X-Ray 03/28/24 10:10 IMPRESSION: 1. Nasogastric tube tip in the stomach. Head CT 03/28/24 10:49 Impression: No intracranial hemorrhage, mass, or acute infarct. Atrophy and chronic white matter changes, as above. Renal Ultrasound 03/28/24 15:15 IMPRESSION: 1. Mild right hydronephrosis. The previously seen stones in the right renal collecting system are no longer visualized patient concern for progression into the ureter with secondary obstruction. The stones were visible on the prior CT but not on intervening upper GI study performed on 03/04/2024 suggesting may be difficult to identify by a radiolucent would consider renal stone CT for further evaluation. Abdomen/Pelvis CT 03/29/24 09:39 IMPRESSION: 1. Mild bilateral hydronephrosis without evident urolithiasis. This is likely related to the wall thickening in the decompressed bladder itself likely related to cystitis. 2. Consolidation at the bilateral lower lungs suspicious for combination of atelectasis and pneumonia. 3. Persistent 7.5 cm ball of stool at the rectum with mild wall thickening and minimal perirectal stranding which can be seen with constipation/fecal impaction and secondary stercoral colitis. Chest X-Ray 04/02/24 06:33 Impression: Worsening hazy airspace disease bilaterally, especially right upper lobe. Correlate for worsening pulmonary edema versus possibly pneumonia. Minimal left pleural effusion. Labs Labs: Laboratory Results - last 24 hr 04/01/24 04/01/24 04/01/24 11:13 16:21 20:51 WBC RBC Hgb Hct MCV MCH MCHC RDW Plt Count MPV Immature Gran % (Auto) Neut % (Auto) Lymph % (Auto) [place] % (Auto) Eos % (Auto) Baso % (Auto) Lymph # (Auto) [place] # (Auto) Eos # (Auto) Baso # (Auto) Abs Immat Gran (auto) Absolute Neuts (auto) Absolute Nucleated RBC Nucleated RBC % Platelet Estimate Polychromasia Hypochromasia Anisocytosis Schistocytes Sodium Potassium Chloride Carbon Dioxide Anion Gap BUN Creatinine Estim Creat Clear Calc Estimated GFR Glucose POC Capillary Glucose 118 H 117 H 163 H Calcium Phosphorus Magnesium Total Bilirubin AST ALT Alkaline Phosphatase Total Protein Albumin 04/02/24 04/02/24 07:13 07:18 WBC 9.9 RBC 3.31 L Hgb 9.3 L Hct 31.1 L MCV 94.0 MCH 28.1 MCHC 29.9 L RDW 16.7 H Plt Count 147 L MPV 9.8 Immature Gran % (Auto) 0.6 H Neut % (Auto) 72.7 Lymph % (Auto) 14.2 L [place] % (Auto) 9.4 H Eos % (Auto) 2.9 Baso % (Auto) 0.2 Lymph # (Auto) 1.40 [place] # (Auto) 0.9 H Eos # (Auto) 0.3 Baso # (Auto) 0.0 Abs Immat Gran (auto) 0.06 H Absolute Neuts (auto) 7.2 H Absolute Nucleated RBC 0.000 Nucleated RBC % 0.0 Platelet Estimate Slightly decreased Polychromasia 1+ Hypochromasia 1+ Anisocytosis 1+ Schistocytes None seen Sodium 143 Potassium 4.3 Chloride 102 Carbon Dioxide 37 H Anion Gap 4 BUN 39 H Creatinine 1.45 H Estim Creat Clear Calc 52 Estimated GFR 47 L Glucose 106 POC Capillary Glucose 87 Calcium 9.9 Phosphorus 3.0 Magnesium 2.0 Total Bilirubin 0.8 AST 17 ALT 13 Alkaline Phosphatase 73 Total Protein 7.0 Albumin 3.2 L Quality VTE Prophylaxis VTE prophylaxis: mechanical ordered and pharmacologic ordered
[2024-04-02 11:25] LABS: Glucose Point of Care 135 mg/dl (65-105)
[2024-04-02 16:10] LABS: Glucose Point of Care 114 mg/dl (65-105)
[2024-04-02 20:38] LABS: Glucose Point of Care 132 mg/dl (65-105)
[2024-04-03] VITALS (25 sets, daily range): BP systolic 123–148; BP diastolic 74–95; PULSE 70–97; RESP 16–24; TEMP 36.6–37.1; O2SAT 95–100
[2024-04-03] MEDS: LEVALBUTEROL NEB 1.25 MG/3 ML INHALATION ×4 (02:22→20:00)
[2024-04-03] MEDS: IPRATROPIUM BR 0.02% INH SOLN 0.5 MG/2.5 ML VIAL INHALATION ×4 (02:22→20:00)
[2024-04-03] MEDS: LEVOTHYROXINE SODIUM 50 MCG TABLET PO (06:06)
--- NOTE | 2024-04-03 08:26 | PCPTNOTE ---
Per care coordination note, pt is dependent at baseline, requires a neida lift for OOB mobility. Plans to return to detention status upon discharge. D/c therapy order as pt is at baseline.
[2024-04-03] MEDS: APIXABAN 5 MG TABLET PO (08:32)
[2024-04-03] MEDS: PANTOPRAZOLE SODIUM IV 40 MG VIAL IV PUSH (08:32)
[2024-04-03] MEDS: polyethylene glycoL 3350 17 GM POWD.PACK PO (08:32)
[2024-04-03] MEDS: carvediloL 12.5 MG TABLET PO ×2 (08:32→20:35)
[2024-04-03] MEDS: SENNA/DOCUSATE SODIUM TABLET 1 TAB PO ×2 (08:32→20:35)
[2024-04-03] MEDS: EMPAGLIFLOZIN 5 MG 5 EACH PO (08:33)
[2024-04-03 08:35] LABS: Alveolar/Arterial O2 Gradient 83.7 mmHg; Base Excess ABG 5.4 mEq/l (+/-2.0); Fractional Inspired Oxygen 32 %; HCO3 ABG 31.8 mEq/l (22.0-26.0); Oxygen Content ABG 13.4 %vol (16.0-22.0); Oxygen Saturation ABG 95.1 % (95.0-100.0); Oxyhemoglobin 94.3 % THb (90.0-100.0); PCO2 ABG 56.2 mmHg (35.0-45.0); PO2 ABG 78.7 mmHg (80.0-100.0); PO2 FiO2 Ratio Arterial Blood 2.46 %
[2024-04-03 08:38] LABS: Device NASAL CANNULA; Modified Allen's Test Pass; Site Drawn RIGHT RADIAL
[2024-04-03] MEDS: FUROSEMIDE INJ 40 MG/4 ML VIAL IV PUSH (08:47)
[2024-04-03 08:54] LABS: Glucose Point of Care 101 mg/dl (65-105)
[2024-04-03 09:55] LABS: Basophils Percent Auto 0.4 % (0.2-1.2); Eosinophils Absolute Auto 0.3 K/mm3 (0-0.3); Eosinophils Percent Auto 3.4 % (0-4.4); Hematocrit 30.3 % (42.0-52.0); Immature Granulocyte Absolute 0.03 K/mm3 (0.00-0.031); Immature Granulocyte Percent A 0.4 % (0-0.5); Lymphocytes Percent Auto 15.9 % (18.3-44.2); Mean Corpuscular HGB Conc 29.7 g/dl (32-36); Mean Corpuscular Hemoglobin 28.3 pg (26-34); Mean Corpuscular Volume 95.3 fl (80-100); Mean Platelet Volume 10.7 fl (7.4-10.4); Monocytes Absolute Auto 0.6 K/mm3 (0.1-0.6); Monocytes Percent Auto 6.9 % (2.6-8.5); Platelet Count Result 184 k/mm3 (150-375); Red Blood Count 3.18 M/mm3 (4.6-6.20); Red Cell Distribution Width 16.5 % (11.5-14.5); White Blood Count 8.2 K/mm3 (4.5-10.0)
--- NOTE | 2024-04-03 10:49 | PM.IMPN ---
Progress Note: A&P Assessment and Plan (1) Acute respiratory failure with hypercapnia: Code(s): J96.02 - Acute respiratory failure with hypercapnia Status: Acute Assessment and Plan: 03/28:Patient presented with respiratory distress, shortness of breath, altered mental status -initial ABG showed pH of 7.19 and pCO2 of 117, patient was obtunded, BiPAP was not an option due to altered mental status so that patient was intubated in the ER on 03/28 -etiology: COPD exacerbation, hypercapnic respiratory failure, pneumonia, obesity hypoventilation syndrome, obstructive sleep apnea, congestive heart failure, pulmonary hypertension -03/31: extubated successfully Continue bronchodilators - RSV, COVID and influenza are negative -ABG done today shows fairly Compazine hypercarbia. Continue BiPAP p.r.n. and at night. As per daughter patient [facility] but refuses to wear. -incentive spirometer -PT and OT to evaluate patient (2) Shock: Code(s): R57.9 - Shock, unspecified Status: Acute Assessment and Plan: RESOLVED Patient presented with hypotension, anemia related to sepsis/infection/hypovolemia, UTI Patient was treated with IV fluids and vasopressors. Now off of both -03/28: left-sided PICC line was inserted in the ER -urine output has been good, creatinine has normalized - monitor urine output and renal function -continue ceftriaxone, and doxycycline (03/28) for a total of 5 days 03/31: Discontinued vancomycin Negative so -MRSA screen was positive -03/28: blood cultures are negative -03/28: urine cultures with no growth -03/28: Sputum culture -growth of normal oropharyngeal terence (3) Acute worsening of stage 3 chronic kidney disease: Code(s): N18.30 - Chronic kidney disease, stage 3 unspecified Status: Acute Assessment and Plan: Patient has history of chronic kidney disease stage 3 (baseline creatinine seems to be 1.4-1.8). Likely related to hypotension from shock, infection, UTI, hypovolemia -patient presented with a creatinine of 2.67 this admission -adequately fluid-resuscitated negative blood cultures 03/29/2024 only -status post IV fluids and vasopressors. Patient also received albumin Creatinine has now improved and is close to baseline. -continue to monitor urine output, renal function electrolytes -mild hydronephrosis on renal ultrasound was noted. Urology was consulted. Repeat CT scan was done which did not show any stone or obstruction 03/29: CT abdomen and pelvis IMPRESSION: 1. Mild bilateral hydronephrosis without evident urolithiasis. This is likely related to the wall thickening in the decompressed bladder itself likely related to cystitis. 2. Consolidation at the bilateral lower lungs suspicious for combination of atelectasis and pneumonia. 3. Persistent 7.5 cm ball of stool at the rectum with mild wall thickening and minimal perirectal stranding which can be seen with constipation/fecal impaction and secondary stercoral colitis. (4) Atrial fibrillation: Qualifiers: Atrial fibrillation type: unspecified Qualified Code(s): I48.91 - Unspecified atrial fibrillation Code(s): I48.91 - Unspecified atrial fibrillation Status: Chronic Assessment and Plan: Patient has a history of atrial fibrillation on Eliquis and the nursing -currently was in AFib, rate controlled -continue Eliquis and Coreg (5) Chronic obstructive pulmonary disease: Code(s): J44.9 - Chronic obstructive pulmonary disease, unspecified Status: Acute Assessment and Plan: History of COPD, on 4 L home oxygen -continue course of antibiotics, bronchodilator Off steroid Contain BiPAP p.r.n. and at night (6) Diabetes mellitus: Code(s): E11.9 - Type 2 diabetes mellitus without complications Status: Chronic Assessment and Plan: Accu-Cheks and sliding scale insulin (7) Heart failure with preserved ejection fraction: Code(s): I50.30 - Unspecified diastolic (congestive) heart failure Status: Acute Assessment and Plan: ProBNP was 9230 Cardiology following 03/29/2024: Echocardiogram Summary 1. Complete two-dimensional, color flow and Doppler transthoracic echocardiogram is performed. 2. Left ventricular chamber dimension is moderately enlarged. 3. Left ventricular systolic function is moderately globally reduced, estimated at 40-45%. 4. The left ventricular diastolic function is normal. 5. E/e' 9 is minimally elevated. 6. Left atrial chamber dimension is moderately enlarged. 7. Right atrial chamber dimension is moderately enlarged. 8. There is mild aortic valve sclerosis. 9. There is mild mitral valve regurgitation. 10. There is mild to moderate tricuspid valve regurgitation. 11. Severe pulmonary hypertension, estimated pulmonary arterial systolic pressure is 64 mmHg. Will give Lasix IV today (8) Hypothyroidism: Code(s): E03.9 - Hypothyroidism, unspecified Status: Acute Assessment and Plan: Continue levothyroxine (9) Urinary tract infection: Code(s): N39.0 - Urinary tract infection, site not specified Status: Acute Assessment and Plan: UA was reflective of UTI, -Continue antibiotics as above, urine cultures negative so far (10) Fecal impaction: Code(s): K56.41 - Fecal impaction Status: Acute Assessment and Plan: Fecal impaction with stool ball at the rectum as seen on the CT scan of the abdomen and pelvis as above -continue MiraLax and docusate with senna -status post soapsuds enema on 03/30 -tap water enema today 04/03 Plan DVT prophylaxis: Eliquis Stress ulcer prophylaxis: Protonix Nutrition: Diet ordered PT and OT consulted Code Status: Full code. I had long discussion with patient's daughter at bedside who is also patient's POA. She told me the patient was intubated twice in September and October of last year and now is his 3rd intubation. He has been in prison since last year. He had stroke many years ago and now has been gradually deteriorating overall. She is aware of his medical problems including congestive heart failure, chronic kidney disease, COPD. She is aware that most of her conditions are not curable. She does not believe patient would want to go back on the ventilator although she is going to discuss with other family members before making any final decision. Subjective Date/time seen: 04/03/24 Overnight events reviewed. Afebrile He wore BiPAP for 4 hours. At this time he is on nasal cannula. He states he feels fine. Denies any new complaints. He states he has cough and is unable to cough up anything. He denies any pain or shortness of breath. No nausea vomiting no abdominal pain. He does have constipation. He is not fully oriented. Acceptable urine output Other Vitals acceptable AFib on the monitor Interval history: Reason for consult: Acute hypercapnic respiratory failure, encephalopathy, hypotensive, shock, pneumonia, UTI, acute on chronic kidney disease 03/31: Extubated Review of Systems Review of Systems: All systems reviewed & are unremarkable except as noted in HPI and below (Subjective) Exam Narrative: General: Pleasant gentleman, in no acute distress slurred speech which is baseline HEENT:? Pupils are pinpoint but equal and reactive, sclerae ischemia, Neck:? Supple, thick neck Respiratory:? Coarse breath sounds bilaterally, decreased at bases, no wheezing, adequate air entry, lip pursing with breathing mild tachypnea but no respiratory distress Cardiac:? Irregularly irregular, tachycardia Abdomen:? soft, nontender, nondistended, morbidly obese, hypoactive bowel sound Extremities:? Trace bilateral lower extremity edema, pitting edema on dorsum of the feet bilaterally. Palpable pedal pulses Neuro:? Patient is awake, alert, answers questions and follows simple commands AO x 1 Skin:? Left big toe nail seems to have fallen off Psych:? Normal mentation and affect Objective Data Vital Signs Vital Signs: Vital Signs - 24 hr 04/02/24 12:00 04/02/24 12:00 04/02/24 12:27 Temperature 36.5 C Pulse Rate 87 Respiratory Rate 26 H Blood Pressure 131/69 Pulse Oximetry 93 95 Oxygen Delivery Nasal Cannula Oxygen Flow Rate 3 Fraction of Inspired Oxygen 04/02/24 14:00 04/02/24 14:39 04/02/24 14:39 Temperature Pulse Rate 78 99 99 Respiratory Rate 24 H 24 H Blood Pressure Pulse Oximetry 98 Oxygen Delivery Nasal Cannula Oxygen Flow Rate 3 Fraction of Inspired Oxygen 04/02/24 14:53 04/02/24 16:00 04/02/24 16:00 Temperature 36.6 C Pulse Rate 90 83 91 Respiratory Rate 16 32 H Blood Pressure 142/77 H Pulse Oximetry 95 Oxygen Delivery Oxygen Flow Rate Fraction of Inspired Oxygen 04/02/24 16:00 04/02/24 18:00 04/02/24 20:00 Temperature 36.7 C Pulse Rate 90 81 Respiratory Rate 21 H Blood Pressure 130/91 H Pulse Oximetry 96 98 Oxygen Delivery Nasal Cannula Oxygen Flow Rate 3 Fraction of Inspired Oxygen 04/02/24 20:00 04/02/24 20:06 04/02/24 20:06 Temperature Pulse Rate 75 98 Respiratory Rate 22 H Blood Pressure Pulse Oximetry 98 Oxygen Delivery Nasal Cannula Oxygen Flow Rate 3 Fraction of Inspired Oxygen 04/02/24 20:21 04/02/24 20:25 04/02/24 21:00 Temperature Pulse Rate 91 84 82 Respiratory Rate 26 H 20 Blood Pressure Pulse Oximetry 100 Oxygen Delivery Nasal Cannula Oxygen Flow Rate 3 Fraction of Inspired Oxygen 04/02/24 22:00 04/02/24 23:53 04/03/24 00:00 Temperature 36.8 C Pulse Rate 84 90 78 Respiratory Rate 17 16 Blood Pressure 138/91 H Pulse Oximetry 100 100 Oxygen Delivery Nasal Cannula Oxygen Flow Rate 3 Fraction of Inspired Oxygen 04/03/24 00:00 04/03/24 02:00 04/03/24 02:22 Temperature Pulse Rate 75 80 83 Respiratory Rate 17 Blood Pressure Pulse Oximetry Oxygen Delivery Oxygen Flow Rate Fraction of Inspired Oxygen 04/03/24 02:28 04/03/24 02:28 04/03/24 03:45 Temperature Pulse Rate 83 88 82 Respiratory Rate 17 20 16 Blood Pressure Pulse Oximetry 99 98 Oxygen Delivery BiPAP BiPAP Oxygen Flow Rate Fraction of Inspired Oxygen 32 04/03/24 04:00 04/03/24 04:00 04/03/24 06:00 Temperature 36.6 C Pulse Rate 85 73 75 Respiratory Rate 22 H Blood Pressure 148/95 H Pulse Oximetry 97 Oxygen Delivery Oxygen Flow Rate Fraction of Inspired Oxygen 04/03/24 08:00 04/03/24 08:00 04/03/24 08:00 Temperature Pulse Rate 88 88 Respiratory Rate 20 Blood Pressure Pulse Oximetry 98 98 Oxygen Delivery Nasal Cannula Nasal Cannula Oxygen Flow Rate 3 Fraction of Inspired Oxygen 04/03/24 08:09 04/03/24 08:32 Temperature Pulse Rate 89 95 Respiratory Rate 20 Blood Pressure Pulse Oximetry Oxygen Delivery Oxygen Flow Rate Fraction of Inspired Oxygen Intake/Output Intake/Output: Intake & Output 03/31/24 04/01/24 04/02/24 04/03/24 23:59 23:59 23:59 23:59 Intake Total 1529.2 1640 2584 150 Output Total 2600 1375 1400 850 Balance -1070.8 265 1184 -700 Meds/Results Medications: Active Medications Generic Name Dose Route Start Last Admin Trade Name Freq PRN Reason Stop Dose Admin Acetaminophen 650 mg 03/30/24 20:43 Acetaminophen Elixir 325 Mg/10.15 Ml Udc PO Q6H PRN Mild Pain (1-3) or Fever Apixaban 5 mg 03/29/24 09:00 04/03/24 08:32 Apixaban 5 Mg Tablet PO 5 mg DAILY LAURA Administration Bisacodyl 10 mg 03/28/24 19:00 04/01/24 15:38 Bisacodyl 10 Mg Suppository RECTAL 10 mg DAILY PRN Administration Constipation Carvedilol 12.5 mg 04/01/24 21:00 04/03/24 08:32 Carvedilol 12.5 Mg Tablet PO 12.5 mg Q12HR LAURA Administration Dextrose 12.5 gm 03/28/24 13:45 Dextrose 50% 25 Gm/50 Ml Syringe IV PUSH PRN PRN Hypoglycemia Protocol Glucagon 1 mg 03/28/24 13:45 Glucagon For Inj 1 Mg Vial IM PRN PRN Hypoglycemia Protocol Glucose 15 gm 03/28/24 13:45 Glucose Oral Gel 15 Gm Of Glucse In 37.5 Gm Tube PO PRN PRN Hypoglycemia Protocol Hydralazine HCl 10 mg 03/30/24 20:43 03/30/24 20:55 Hydralazine Hcl 20 Mg/Ml Vial IV PUSH 10 mg Q4H PRN Administration Blood Pressure - High Dextrose 1,000 mls @ 100 mls/hr 03/28/24 13:45 Dextrose 5% 1,000 Ml IVPB PRN PRN Hypoglycemia Protocol Insulin Aspart 3 - 6 units 04/01/24 12:00 04/03/24 08:31 Insulin Aspart (*Bkc) 100 Units/Ml SUB-Q Not Given [facility]HS LAURA Protocol Ipratropium [place] 0.5 mg 03/28/24 14:00 04/03/24 08:00 Ipratropium Br 0.02% Inh Soln 0.5 Mg/2.5 Ml Vial INHALATION 0.5 mg Q6HRT LAURA Administration Levalbuterol HCl 1.25 mg 03/28/24 14:00 04/03/24 08:00 Levalbuterol Neb 1.25 Mg/3 Ml INHALATION 1.25 mg Q6HRT LAURA Administration Levothyroxine Sodium 50 mcg 03/29/24 06:30 04/03/24 06:06 Levothyroxine Sodium 50 Mcg Tablet PO 50 mcg DAILY@0630 LAURA Administration Empagliflozin 5 Mg 5 each 04/01/24 13:15 04/03/24 08:33 PO 05/01/24 13:14 5 each DAILY LAURA Administration Pantoprazole Sodium 40 mg 03/29/24 09:00 04/03/24 08:32 Pantoprazole Sodium Iv 40 Mg Vial IV PUSH 40 mg QAM LAURA Administration Polyethylene Glycol 17 gm 03/30/24 09:00 04/03/24 08:32 Polyethylene Glycol 3350 17 Gm Powd.Pack PO 17 gm QAM LAURA Administration Senna/Docusate Sodium 1 tab 03/30/24 09:00 04/03/24 08:32 Senna/Docusate Sodium Tablet PO 1 tab Q12HR LAURA Administration Radiology Results: ITS Impressions Abdomen X-Ray 03/28/24 10:10 IMPRESSION: 1. Nasogastric tube tip in the stomach. Head CT 03/28/24 10:49 Impression: No intracranial hemorrhage, mass, or acute infarct. Atrophy and chronic white matter changes, as above. Renal Ultrasound 03/28/24 15:15 IMPRESSION: 1. Mild right hydronephrosis. The previously seen stones in the right renal collecting system are no longer visualized patient concern for progression into the ureter with secondary obstruction. The stones were visible on the prior CT but not on intervening upper GI study performed on 03/04/2024 suggesting may be difficult to identify by a radiolucent would consider renal stone CT for further evaluation. Abdomen/Pelvis CT 03/29/24 09:39 IMPRESSION: 1. Mild bilateral hydronephrosis without evident urolithiasis. This is likely related to the wall thickening in the decompressed bladder itself likely related to cystitis. 2. Consolidation at the bilateral lower lungs suspicious for combination of atelectasis and pneumonia. 3. Persistent 7.5 cm ball of stool at the rectum with mild wall thickening and minimal perirectal stranding which can be seen with constipation/fecal impaction and secondary stercoral colitis. Chest X-Ray 04/02/24 06:33 Impression: Worsening hazy airspace disease bilaterally, especially right upper lobe. Correlate for worsening pulmonary edema versus possibly pneumonia. Minimal left pleural effusion. Labs Labs: Laboratory Results - last 24 hr 04/02/24 04/02/24 04/02/24 11:08 16:07 20:35 WBC RBC Hgb Hct MCV MCH MCHC RDW Plt Count MPV Immature Gran % (Auto) Neut % (Auto) Lymph % (Auto) Robertson % (Auto) Eos % (Auto) Baso % (Auto) Lymph # (Auto) Robertson # (Auto) Eos # (Auto) Baso # (Auto) Abs Immat Gran (auto) Absolute Neuts (auto) Absolute Nucleated RBC Nucleated RBC % Puncture Site ABG pH ABG pCO2 ABG pO2 ABG PO2/FiO2 Ratio ABG HCO3 ABG O2 Saturation ABG O2 Content ABG Base Excess A-a Gradient Oxyhemoglobin Total Hemoglobin O2 Delivery Device O2 Liters/Min FiO2 POC Capillary Glucose 135 H 114 H 132 H 04/03/24 04/03/24 04/03/24 08:28 08:31 09:47 WBC 8.2 RBC 3.18 L Hgb 9.0 L Hct 30.3 L MCV 95.3 MCH 28.3 MCHC 29.7 L RDW 16.5 H Plt Count 184 MPV 10.7 H Immature Gran % (Auto) 0.4 Neut % (Auto) 73.0 Lymph % (Auto) 15.9 L Robertson % (Auto) 6.9 Eos % (Auto) 3.4 Baso % (Auto) 0.4 Lymph # (Auto) 1.30 Robertson # (Auto) 0.6 Eos # (Auto) 0.3 Baso # (Auto) 0.0 Abs Immat Gran (auto) 0.03 Absolute Neuts (auto) 6.0 Absolute Nucleated RBC 0.000 Nucleated RBC % 0.0 Puncture Site Right radial ABG pH 7.370 ABG pCO2 56.2 H ABG pO2 78.7 L ABG PO2/FiO2 Ratio 2.46 ABG HCO3 31.8 H ABG O2 Saturation 95.1 ABG O2 Content 13.4 L ABG Base Excess 5.4 A-a Gradient 83.7 Oxyhemoglobin 94.3 Total Hemoglobin 10.0 L O2 Delivery Device Nasal cannula O2 Liters/Min 3.0 FiO2 32 POC Capillary Glucose 101 Quality VTE Prophylaxis VTE prophylaxis: mechanical ordered and pharmacologic ordered
[2024-04-03 12:12] LABS: Hypochromasia 1+; Ovalocytes 1+; Platelet Estimate Adequate (Adequate)
[2024-04-03 12:13] LABS: Schistocytes None Seen
--- NOTE | 2024-04-03 12:19 | PM.PNCARD ---
Progress Note: A&P Assessment and Plan (1) Cardiomyopathy: Code(s): I42.9 - Cardiomyopathy, unspecified Status: Acute Plan 1. Heart failure with mildly reduced LVEF of 40-45% 2. Chronic atrial fibrillation 3. Acute respiratory failure with hypercapnia, requiring mechanical ventilation, extubated on 03/31 4. Shock, now resolved 5. PIPE on CKD 6. COPD PLAN: -Continue with intermittent IV Lasix as needed. -As for heart failure GDMT, continue Coreg, Jardiance. Will hold off on starting ARNI/ACEI/ARB given PIPE on CKD, however, recommend starting when renal function improves. -Has chronic longstanding atrial fibrillation, continue Coreg, Eliquis. Recommendations and plan discussed with ICU Physician. Subjective Date/time seen: 04/03/24 12:19 Interval history: Reason for visit: Cardiomyopathy HPI: Hans Gaytan is a 74 year old male with a history of atrial fibrillation, CVA, chronic hypercapnic and hypoxic respiratory failure on 4L O2 at halfway, chronic kidney disease, and HOMER on BiPAP. He presented to the hospital with worsening shortness of breath and altered mental status. He was apparently obtunded upon arrival. He is alert and extubated at this point but his baseline mental status is altered due to previous stroke, therefore, I am not able to obtain history from him directly. Rather, most of his history has been obtained through the medical record. Cardiology is being consulted because of a new finding of reduced LV systolic function and severe pulmonary hypertension. Date of service 04/03: States he feels awful, but cannot really elaborate on that. Tele with rate controlled AFIB. Review of Systems Cardiovascular: Cardiovascular: Reports as per HPI Exam Const: General: no acute distress Eyes: General: appearance normal, both eyes and all related structures Sclera: sclerae normal Resp: Other: Increased respiratory effort Cardio: Rhythm: abnormal rhythm irregularly irregular Skin: General skin exam: normal color Psych: Mental Status: mental status grossly normal Affect: normal affect Objective Data Vital Signs Vital Signs: Vital Signs - 24 hr 04/02/24 12:27 04/02/24 14:00 04/02/24 14:39 Temperature 36.5 C Pulse Rate 78 99 Respiratory Rate 24 H Blood Pressure Pulse Oximetry 98 Oxygen Delivery Nasal Cannula Oxygen Flow Rate 3 Fraction of Inspired Oxygen 04/02/24 14:39 04/02/24 14:53 04/02/24 16:00 Temperature 36.6 C Pulse Rate 99 90 83 Respiratory Rate 24 H 16 32 H Blood Pressure 142/77 H Pulse Oximetry 95 Oxygen Delivery Oxygen Flow Rate Fraction of Inspired Oxygen 04/02/24 16:00 04/02/24 16:00 04/02/24 18:00 Temperature Pulse Rate 91 90 Respiratory Rate Blood Pressure Pulse Oximetry 96 Oxygen Delivery Nasal Cannula Oxygen Flow Rate 3 Fraction of Inspired Oxygen 04/02/24 20:00 04/02/24 20:00 04/02/24 20:06 Temperature 36.7 C Pulse Rate 81 75 Respiratory Rate 21 H Blood Pressure 130/91 H Pulse Oximetry 98 98 Oxygen Delivery Nasal Cannula Oxygen Flow Rate 3 Fraction of Inspired Oxygen 04/02/24 20:06 04/02/24 20:21 04/02/24 20:25 Temperature Pulse Rate 98 91 84 Respiratory Rate 22 H 26 H 20 Blood Pressure Pulse Oximetry 100 Oxygen Delivery Nasal Cannula Oxygen Flow Rate 3 Fraction of Inspired Oxygen 04/02/24 21:00 04/02/24 22:00 04/02/24 23:53 Temperature Pulse Rate 82 84 90 Respiratory Rate 17 Blood Pressure Pulse Oximetry 100 Oxygen Delivery Nasal Cannula Oxygen Flow Rate 3 Fraction of Inspired Oxygen 04/03/24 00:00 04/03/24 00:00 04/03/24 02:00 Temperature 36.8 C Pulse Rate 78 75 80 Respiratory Rate 16 Blood Pressure 138/91 H Pulse Oximetry 100 Oxygen Delivery Oxygen Flow Rate Fraction of Inspired Oxygen 04/03/24 02:22 04/03/24 02:28 04/03/24 02:28 Temperature Pulse Rate 83 83 88 Respiratory Rate 17 17 20 Blood Pressure Pulse Oximetry 99 Oxygen Delivery BiPAP Oxygen Flow Rate Fraction of Inspired Oxygen 04/03/24 03:45 04/03/24 04:00 04/03/24 04:00 Temperature 36.6 C Pulse Rate 82 85 73 Respiratory Rate 16 22 H Blood Pressure 148/95 H Pulse Oximetry 98 97 Oxygen Delivery BiPAP Oxygen Flow Rate Fraction of Inspired Oxygen 32 04/03/24 06:00 04/03/24 08:00 04/03/24 08:00 Temperature Pulse Rate 75 88 Respiratory Rate Blood Pressure Pulse Oximetry 98 98 Oxygen Delivery Nasal Cannula Nasal Cannula Oxygen Flow Rate 3 Fraction of Inspired Oxygen 04/03/24 08:00 04/03/24 08:00 04/03/24 08:00 Temperature Pulse Rate 88 84 84 Respiratory Rate 20 18 Blood Pressure Pulse Oximetry 100 Oxygen Delivery Nasal Cannula Oxygen Flow Rate 3 Fraction of Inspired Oxygen 04/03/24 08:00 04/03/24 08:09 04/03/24 08:32 Temperature 37.1 C Pulse Rate 85 89 95 Respiratory Rate 21 H 20 Blood Pressure 148/75 H Pulse Oximetry 98 Oxygen Delivery Oxygen Flow Rate Fraction of Inspired Oxygen 04/03/24 10:00 Temperature Pulse Rate 82 Respiratory Rate Blood Pressure Pulse Oximetry Oxygen Delivery Oxygen Flow Rate Fraction of Inspired Oxygen Intake/Output Intake/Output: Intake & Output 03/31/24 04/01/24 04/02/24 04/03/24 23:59 23:59 23:59 23:59 Intake Total 1529.2 1640 2584 390 Output Total 2600 1375 1400 850 Balance -1070.8 265 1184 -460 Meds/Results Medications: Active Medications Generic Name Dose Route Start Last Admin Trade Name Freq PRN Reason Stop Dose Admin Acetaminophen 650 mg 03/30/24 20:43 Acetaminophen Elixir 325 Mg/10.15 Ml Udc PO Q6H PRN Mild Pain (1-3) or Fever Apixaban 5 mg 03/29/24 09:00 04/03/24 08:32 Apixaban 5 Mg Tablet PO 5 mg DAILY LAURA Administration Bisacodyl 10 mg 03/28/24 19:00 04/01/24 15:38 Bisacodyl 10 Mg Suppository RECTAL 10 mg DAILY PRN Administration Constipation Carvedilol 12.5 mg 04/01/24 21:00 04/03/24 08:32 Carvedilol 12.5 Mg Tablet PO 12.5 mg Q12HR LAURA Administration Dextrose 12.5 gm 03/28/24 13:45 Dextrose 50% 25 Gm/50 Ml Syringe IV PUSH PRN PRN Hypoglycemia Protocol Glucagon 1 mg 03/28/24 13:45 Glucagon For Inj 1 Mg Vial IM PRN PRN Hypoglycemia Protocol Glucose 15 gm 03/28/24 13:45 Glucose Oral Gel 15 Gm Of Glucse In 37.5 Gm Tube PO PRN PRN Hypoglycemia Protocol Hydralazine HCl 10 mg 03/30/24 20:43 03/30/24 20:55 Hydralazine Hcl 20 Mg/Ml Vial IV PUSH 10 mg Q4H PRN Administration Blood Pressure - High Dextrose 1,000 mls @ 100 mls/hr 03/28/24 13:45 Dextrose 5% 1,000 Ml IVPB PRN PRN Hypoglycemia Protocol Insulin Aspart 3 - 6 units 04/01/24 12:00 04/03/24 08:31 Insulin Aspart (*Bkc) 100 Units/Ml SUB-Q Not Given [facility] LAURA Protocol Ipratropium [place] 0.5 mg 03/28/24 14:00 04/03/24 08:00 Ipratropium Br 0.02% Inh Soln 0.5 Mg/2.5 Ml Vial INHALATION 0.5 mg Q6HRT LAURA Administration Levalbuterol HCl 1.25 mg 03/28/24 14:00 04/03/24 08:00 Levalbuterol Neb 1.25 Mg/3 Ml INHALATION 1.25 mg Q6HRT LAURA Administration Levothyroxine Sodium 50 mcg 03/29/24 06:30 04/03/24 06:06 Levothyroxine Sodium 50 Mcg Tablet PO 50 mcg DAILY@0630 LAURA Administration Empagliflozin 5 Mg 5 each 04/01/24 13:15 04/03/24 08:33 PO 05/01/24 13:14 5 each DAILY LAURA Administration Pantoprazole Sodium 40 mg 03/29/24 09:00 04/03/24 08:32 Pantoprazole Sodium Iv 40 Mg Vial IV PUSH 40 mg QAM LAURA Administration Polyethylene Glycol 17 gm 03/30/24 09:00 04/03/24 08:32 Polyethylene Glycol 3350 17 Gm Powd.Pack PO 17 gm QAM LAURA Administration Senna/Docusate Sodium 1 tab 03/30/24 09:00 04/03/24 08:32 Senna/Docusate Sodium Tablet PO 1 tab Q12HR LAURA Administration Radiology Results: ITS Impressions Abdomen X-Ray 03/28/24 10:10 IMPRESSION: 1. Nasogastric tube tip in the stomach. Head CT 03/28/24 10:49 Impression: No intracranial hemorrhage, mass, or acute infarct. Atrophy and chronic white matter changes, as above. Renal Ultrasound 03/28/24 15:15 IMPRESSION: 1. Mild right hydronephrosis. The previously seen stones in the right renal collecting system are no longer visualized patient concern for progression into the ureter with secondary obstruction. The stones were visible on the prior CT but not on intervening upper GI study performed on 03/04/2024 suggesting may be difficult to identify by a radiolucent would consider renal stone CT for further evaluation. Abdomen/Pelvis CT 03/29/24 09:39 IMPRESSION: 1. Mild bilateral hydronephrosis without evident urolithiasis. This is likely related to the wall thickening in the decompressed bladder itself likely related to cystitis. 2. Consolidation at the bilateral lower lungs suspicious for combination of atelectasis and pneumonia. 3. Persistent 7.5 cm ball of stool at the rectum with mild wall thickening and minimal perirectal stranding which can be seen with constipation/fecal impaction and secondary stercoral colitis. Chest X-Ray 04/02/24 06:33 Impression: Worsening hazy airspace disease bilaterally, especially right upper lobe. Correlate for worsening pulmonary edema versus possibly pneumonia. Minimal left pleural effusion. Labs Labs: Laboratory Results - last 24 hr 04/02/24 04/02/24 04/03/24 16:07 20:35 08:28 WBC RBC Hgb Hct MCV MCH MCHC RDW Plt Count MPV Immature Gran % (Auto) Neut % (Auto) Lymph % (Auto) [place] % (Auto) Eos % (Auto) Baso % (Auto) Lymph # (Auto) [place] # (Auto) Eos # (Auto) Baso # (Auto) Abs Immat Gran (auto) Absolute Neuts (auto) Absolute Nucleated RBC Band Neutrophils % Nucleated RBC % Platelet Estimate Hypochromasia Ovalocytes Schistocytes Puncture Site Right radial ABG pH 7.370 ABG pCO2 56.2 H ABG pO2 78.7 L ABG PO2/FiO2 Ratio 2.46 ABG HCO3 31.8 H ABG O2 Saturation 95.1 ABG O2 Content 13.4 L ABG Base Excess 5.4 A-a Gradient 83.7 Oxyhemoglobin 94.3 Total Hemoglobin 10.0 L O2 Delivery Device Nasal cannula O2 Liters/Min 3.0 FiO2 32 POC Capillary Glucose 114 H 132 H 04/03/24 04/03/24 08:31 09:47 WBC 8.2 RBC 3.18 L Hgb 9.0 L Hct 30.3 L MCV 95.3 MCH 28.3 MCHC 29.7 L RDW 16.5 H Plt Count 184 MPV 10.7 H Immature Gran % (Auto) 0.4 Neut % (Auto) 73.0 Lymph % (Auto) 15.9 L [place] % (Auto) 6.9 Eos % (Auto) 3.4 Baso % (Auto) 0.4 Lymph # (Auto) 1.30 [place] # (Auto) 0.6 Eos # (Auto) 0.3 Baso # (Auto) 0.0 Abs Immat Gran (auto) 0.03 Absolute Neuts (auto) 6.0 Absolute Nucleated RBC 0.000 Band Neutrophils % Not Reportable Nucleated RBC % 0.0 Platelet Estimate Adequate Hypochromasia 1+ Ovalocytes 1+ Schistocytes None seen Puncture Site ABG pH ABG pCO2 ABG pO2 ABG PO2/FiO2 Ratio ABG HCO3 ABG O2 Saturation ABG O2 Content ABG Base Excess A-a Gradient Oxyhemoglobin Total Hemoglobin O2 Delivery Device O2 Liters/Min FiO2 POC Capillary Glucose 101
[2024-04-03 12:48] LABS: Alanine Aminotransferase 13 U/L (6-50); Alkaline Phosphatase 69 U/L (38-126); Anion Gap 6 mmol/L (4-12); Aspartate Amino Transferase 16 U/L (17-59); Bilirubin,Total 0.6 mg/dL (0.2-1.3); Blood Urea Nitrogen 43 mg/dL (9-20); Carbon Dioxide 34 mmol/L (22-30); Chloride 101 mmol/L (98-107); Estimated CRCL calculation 55 ml/min; Estimated Glomerular Filt Rate 52; Glucose 123 mg/dL (65-110); Sodium 141 mmol/L (137-145)
[2024-04-03 12:55] LABS: Glucose Point of Care 125 mg/dl (65-105)
--- NOTE | 2024-04-03 13:54 | PCOTNOTE ---
Pt. is dependent at baseline, and is long term resident at assisted. Nursing in agreement that pt. at baseline. Per coordination pt. will return to facility at discharge
[2024-04-03 17:10] LABS: Glucose Point of Care 120 mg/dl (65-105)
[2024-04-03 20:17] LABS: Glucose Point of Care 112 mg/dl (65-105)
[2024-04-04] VITALS (27 sets, daily range): BP systolic 133–160; BP diastolic 71–96; PULSE 74–100; RESP 18–32; TEMP 36.8–37; O2SAT 95–98
[2024-04-04] MEDS: LEVALBUTEROL NEB 1.25 MG/3 ML INHALATION ×4 (01:57→20:08)
[2024-04-04] MEDS: IPRATROPIUM BR 0.02% INH SOLN 0.5 MG/2.5 ML VIAL INHALATION ×4 (01:57→20:08)
[2024-04-04 05:21] LABS: Hematocrit 30.3 % (42.0-52.0); Mean Corpuscular HGB Conc 29.7 g/dl (32-36); Mean Corpuscular Hemoglobin 27.8 pg (26-34); Mean Corpuscular Volume 93.5 fl (80-100); Mean Platelet Volume 10.2 fl (7.4-10.4); Platelet Count Result 183 k/mm3 (150-375); Red Blood Count 3.24 M/mm3 (4.6-6.20); White Blood Count 8.7 K/mm3 (4.5-10.0)
[2024-04-04 05:41] LABS: Alanine Aminotransferase 11 U/L (6-50); Alkaline Phosphatase 65 U/L (38-126); Anion Gap 7 mmol/L (4-12); Aspartate Amino Transferase 16 U/L (17-59); Bilirubin,Total 0.7 mg/dL (0.2-1.3); Blood Urea Nitrogen 47 mg/dL (9-20); Calcium 9.7 mg/dL (8.4-10.2); Carbon Dioxide 35 mmol/L (22-30); Chloride 97 mmol/L (98-107); Estimated CRCL calculation 56 ml/min; Estimated Glomerular Filt Rate 52; Glucose 99 mg/dL (65-110); Sodium 139 mmol/L (137-145)
[2024-04-04] MEDS: LEVOTHYROXINE SODIUM 50 MCG TABLET PO (05:55)
[2024-04-04 08:17] LABS: Glucose Point of Care 107 mg/dl (65-105)
[2024-04-04] MEDS: carvediloL 12.5 MG TABLET PO ×2 (08:38→20:58)
[2024-04-04] MEDS: SENNA/DOCUSATE SODIUM TABLET 1 TAB PO ×2 (08:39→20:58)
[2024-04-04] MEDS: FUROSEMIDE INJ 40 MG/4 ML VIAL IV PUSH (08:39)
[2024-04-04] MEDS: PANTOPRAZOLE 40 MG TABLET PO (08:39)
[2024-04-04] MEDS: APIXABAN 5 MG TABLET PO (08:39)
[2024-04-04] MEDS: polyethylene glycoL 3350 17 GM POWD.PACK PO (08:40)
[2024-04-04] MEDS: EMPAGLIFLOZIN 5 MG 5 EACH PO (08:40)
--- NOTE | 2024-04-04 10:27 | P.PNIM_ITS ---
Progress Note: A&P Assessment and Plan (1) Acute respiratory failure with hypercapnia: Code(s): J96.02 - Acute respiratory failure with hypercapnia Status: Acute Assessment and Plan: 03/28:Patient presented with respiratory distress, shortness of breath, altered mental status -initial ABG showed pH of 7.19 and pCO2 of 117, patient was obtunded, BiPAP was not an option due to altered mental status so that patient was intubated in the ER on 03/28 -etiology: COPD exacerbation, hypercapnic respiratory failure, pneumonia, obesity hypoventilation syndrome, obstructive sleep apnea, congestive heart failure, pulmonary hypertension -03/31: extubated successfully Continue bronchodilators - RSV, COVID and influenza are negative -ABG done today shows fairly compensadted hypercarbia. Pt continue to be non compliant with bipap. I again spoke to him and ephasiszed wearing it at night. Continue BiPAP p.r.n. and at night. As per daughter patient has BiPAP at retirement but refuses to wear. -incentive spirometer -PT and OT evaluation done Continue Lasix (2) Shock: Code(s): R57.9 - Shock, unspecified Status: Acute Assessment and Plan: RESOLVED Patient presented with hypotension, anemia related to seps is/infection/hypovolemia, UTI Patient was treated with IV fluids and vasopressors. Now off of both -03/28: left-sided PICC line was inserted in the ER -urine output has been good, creatinine has normalized - monitor urine output and renal function -continue ceftriaxone, and doxycycline (03/28) for a total of 5 days 03/31: Discontinued vancomycin Negative so -MRSA screen was positive -03/28: blood cultures are negative -03/28: urine cultures with no growth -03/28: Sputum culture -growth of normal oropharyngeal terence (3) Acute worsening of stage 3 chronic kidney disease: Code(s): N18.30 - Chronic kidney disease, stage 3 unspecified Status: Acute Assessment and Plan: Patient has history of chronic kidney disease stage 3 (baseline creatinine seems to be 1.4-1.8). Likely related to hypotension from shock, infection, UTI, hypovolemia -patient presented with a creatinine of 2.67 this admission -adequately fluid-resuscitated negative blood cultures 03/29/2024 only -status post IV fluids and vasopressors. Patient also received albumin Creatinine has now improved and is close to baseline. -continue to monitor urine output, renal function electrolytes -mild hydronephrosis on renal ultrasound was noted. Urology was consulted. Re peat CT scan was done which did not show any stone or obstruction 03/29: CT abdomen and pelvis IMPRESSION: 1. Mild bilateral hydronephrosis without evident urolithiasis. This is likely related to the wall thickening in the decompressed bladder itself likely related to cystitis. 2. Consolidation at the bilateral lower lungs suspicious for combination of atelectasis and pneumonia. 3. Persistent 7.5 cm ball of stool at the rectum with mild wall thickening and minimal perirectal stranding which can be seen with constipation/fecal impaction and secondary stercoral colitis. (4) Atrial fibrillation: Qualifiers: Atrial fibrillation type: unspecified Qualified Code(s): I48.91 - Unspecified atrial fibrillation Code(s): I48.91 - Unspecified atrial fibrillation Status: Chronic Assessment and Plan: Patient has a history of atrial fibrillation on Eliquis and the nursing -currently was in AFib, rate controlled -continue Eliquis and Coreg (5) Chronic obstructive pulmonary disease: Code(s): J44.9 - Chronic obstructive pulmonary disease, unspecified Status: Acute Assessment and Plan: History of COPD, on 4 L home oxygen -continue course of antibiotics, bronchodilator Off steroid Contain BiPAP p.r.n. and at night (6) Diabetes mellitus: Code(s): E11.9 - Type 2 diabetes mellitus without complications Status: Chronic Assessment and Plan: Accu-Cheks and sliding scale insulin (7) Heart failure with preserved ejection fraction: Code(s): I50.30 - Unspecified diastolic (congestive) heart failure Status: Acute Assessment and Plan: ProBNP was 9230 Cardiology following 03/29/2024: Echocardiogram Summary 1. Complete two-dimensional, color flow and Doppler transthoracic echocardiogram is performed. 2. Left ventricular chamber dimension is moderately enlarged. 3. Left ventricular systolic function is moderately globally reduced, estimated at 40-45%. 4. The left ventricular diastolic function is normal. 5. E/e' 9 is minimally elevated. 6. Left atrial chamber dimension is moderately enlarged. 7. Right atrial chamber dimension is moderately enlarged. 8. There is mild aortic valve sclerosis. 9. There is mild mitral valve regurgitation. 10. There is mild to moderate tricuspid valve regurgitation. 11. Severe pulmonary hypertension, estimated pulmonary arterial systolic pressure is 64 mmHg. Will give Lasix IV again today (8) Hypothyroidism: Code(s): E03.9 - Hypothyroidism, unspecified Status: Acute Assessment and Plan: Continue levothyroxine (9) Urinary tract infection: Code(s): N39.0 - Urinary tract infection, site not specified Status: Acute Assessment and Plan: UA was reflective of UTI, -Continue antibiotics as above, urine cultures negative so far (10) Fecal impaction: Code(s): K56.41 - Fecal impaction Status: Acute Assessment and Plan: Fecal impaction with stool ball at the rectum as seen on the CT scan of the abdomen and pelvis as above -continue MiraLax and docusate with senna -status post soapsuds enema on 03/30 -tap water enema 04/03 with 1 hard BM Plan DVT prophylaxis: Eliquis Stress ulcer prophylaxis: Protonix Nutrition: Diet ordered PT and OT evaluated and pt is at baseline level Code Status: Full code. I had long discussion with patient's daughter at bedside who is also patient's POA. She told me the patient was intubated twice in September and October of last year and now is his 3rd intubation. He has been in retirement since last year. He had stroke many years ago and now has been gradually deteriorating overall. She is aware of his medical problems including congestive heart failure, chronic kidney disease, COPD. She is aware that most of her conditions are not curable. She does not believe patient would want to go back on the ventilator although she is going to discuss with other family members before making any final decision. Discussed with care coordination. Anticipate transfer back to [place] soon Subjective Date/time seen: 04/04/24 Afebrile. More alert and oriented Refused to wear Bippap again last night. Only wore for 1 hour Denies any ne complaints including SOB. Admits to cough. States he cant wear Bipap as he finds it uncomfortable All other systems reviewed and negative Good UO in response to lasix Tolerating PO Interval history: Reason for consult: Acute hypercapnic respiratory failure, encephalopathy, hypotensive, shock, pneumonia, UTI, acute on chronic kidney disease 03/31: Extubated Review of Systems Review of Systems: All systems reviewed & are unremarkable except as noted in HPI and below (Subjective) Exam Narrative: General: Pleasant gentleman, in no acute distress slurred speech which is baseline HEENT:? Pupils are pinpoint but equal and reactive, sclerae ischemia, Neck:? Supple, thick neck Respiratory:? Coarse breath sounds bilaterally, decreased at bases, no wheezing, adequate air entry, lip pursing with breathing mild tachypnea but no respiratory distress Cardiac:? Irregularly irregular, tachycardia Abdomen:? soft, nontender, nondistended, morbidly obese, hypoactive bowel sound Extremities:? Trace bilateral lower extremity edema, pitting edema on dorsum of the feet bilaterally. Palpable pedal pulses Neuro:? Patient is awake, alert, answers questions and follows simple commands AO x 1 Skin:? Left big toe nail seems to have fallen off Psych:? Normal mentation and affect Objective Data Vital Signs Vital Signs: Vital Signs - 24 hr 04/03/24 12:00 04/03/24 12:00 04/03/24 12:00 Temperature 36.7 C Pulse Rate 86 86 86 Respiratory Rate 19 24 H Blood Pressure 139/91 H Pulse Oximetry 98 98 Oxygen Delivery Nasal Cannula Oxygen Flow Rate 2 Fraction of Inspired Oxygen 04/03/24 13:36 04/03/24 13:36 04/03/24 13:54 Temperature Pulse Rate 83 86 Respiratory Rate 24 H 22 H Blood Pressure Pulse Oximetry 98 Oxygen Delivery Nasal Cannula Oxygen Flow Rate 2 Fraction of Inspired Oxygen 04/03/24 14:00 04/03/24 16:00 04/03/24 16:00 Temperature 36.8 C Pulse Rate 89 90 81 Respiratory Rate 22 H Blood Pressure 141/84 H Pulse Oximetry 99 Oxygen Delivery Oxygen Flow Rate Fraction of Inspired Oxygen 04/03/24 16:00 04/03/24 18:00 04/03/24 19:49 Temperature Pulse Rate 81 97 87 Respiratory Rate 22 H 24 H Blood Pressure Pulse Oximetry 99 99 Oxygen Delivery Nasal Cannula Nasal Cannula Oxygen Flow Rate 2 2 Fraction of Inspired Oxygen 04/03/24 20:00 04/03/24 20:03 04/03/24 20:03 Temperature Pulse Rate 70 78 Respiratory Rate 20 Blood Pressure Pulse Oximetry 99 Oxygen Delivery Nasal Cannula Oxygen Flow Rate 2 Fraction of Inspired Oxygen 04/03/24 20:35 04/03/24 20:35 04/03/24 20:49 Temperature 36.8 C Pulse Rate 81 80 79 Respiratory Rate 23 H 24 H Blood Pressure 123/74 Pulse Oximetry 99 Oxygen Delivery Oxygen Flow Rate Fraction of Inspired Oxygen 04/03/24 22:00 04/03/24 23:09 04/03/24 23:26 Temperature Pulse Rate 74 85 Respiratory Rate 20 Blood Pressure Pulse Oximetry 100 95 Oxygen Delivery BiPAP BiPAP Oxygen Flow Rate Fraction of Inspired Oxygen 04/04/24 00:00 04/04/24 00:00 04/04/24 00:00 Temperature 37.0 C Pulse Rate 81 74 87 Respiratory Rate 21 H 18 Blood Pressure 154/96 H Pulse Oximetry 96 96 Oxygen Delivery BiPAP Oxygen Flow Rate Fraction of Inspired Oxygen 04/04/24 01:57 04/04/24 01:57 04/04/24 02:00 Temperature Pulse Rate 81 84 Respiratory Rate 20 Blood Pressure Pulse Oximetry 95 Oxygen Delivery Nasal Cannula Oxygen Flow Rate 2 Fraction of Inspired Oxygen 04/04/24 02:12 04/04/24 04:00 04/04/24 04:00 Temperature Pulse Rate 88 89 90 Respiratory Rate 22 H 25 H Blood Pressure Pulse Oximetry 96 Oxygen Delivery Nasal Cannula Oxygen Flow Rate 2 Fraction of Inspired Oxygen 04/04/24 04:00 04/04/24 06:00 04/04/24 08:00 Temperature 36.9 C 37.0 C Pulse Rate 92 89 84 Respiratory Rate 18 29 H Blood Pressure 160/91 H 142/71 H Pulse Oximetry 96 97 Oxygen Delivery Oxygen Flow Rate Fraction of Inspired Oxygen 04/04/24 08:24 04/04/24 08:36 04/04/24 08:38 Temperature Pulse Rate 90 82 86 Respiratory Rate 26 H 26 H Blood Pressure Pulse Oximetry Oxygen Delivery Oxygen Flow Rate Fraction of Inspired Oxygen Intake/Output Intake/Output: Intake & Output 04/01/24 04/02/24 04/03/24 04/04/24 23:59 23:59 23:59 23:59 Intake Total 1640 2584 990 200 Output Total 1375 1400 2000 800 Balance 265 1189 -1010 -600 Meds/Results Medications: Active Medications Generic Name Dose Route Start Last Admin Trade Name Freq PRN Reason Stop Dose Admin Acetaminophen 650 mg 03/30/24 20:43 Acetaminophen Elixir 325 Mg/10.15 Ml Udc PO Q6H PRN Mild Pain (1-3) or Fever Apixaban 5 mg 03/29/24 09:00 04/04/24 08:39 Apixaban 5 Mg Tablet PO 5 mg DAILY LAURA Administration Bisacodyl 10 mg 03/28/24 19:00 04/01/24 15:38 Bisacodyl 10 Mg Suppository RECTAL 10 mg DAILY PRN Administration Constipation Carvedilol 12.5 mg 04/01/24 21:00 04/04/24 08:38 Carvedilol 12.5 Mg Tablet PO 12.5 mg Q12HR LAURA Administration Dextrose 12.5 gm 03/28/24 13:45 Dextrose 50% 25 Gm/50 Ml Syringe IV PUSH PRN PRN Hypoglycemia Protocol Empagliflozin 5 mg 04/05/24 09:00 Empagliflozin 5 Mg Tablet PO DAILY LAURA Glucagon 1 mg 03/28/24 13:45 Glucagon For Inj 1 Mg Vial IM PRN PRN Hypoglycemia Protocol Glucose 15 gm 03/28/24 13:45 Glucose Oral Gel 15 Gm Of Glucse In 37.5 Gm Tube PO PRN PRN Hypoglycemia Protocol Hydralazine HCl 10 mg 03/30/24 20:43 03/30/24 20:55 Hydralazine Hcl 20 Mg/Ml Vial IV PUSH 10 mg Q4H PRN Administration Blood Pressure - High Dextrose 1,000 mls @ 100 mls/hr 03/28/24 13:45 Dextrose 5% 1,000 Ml IVPB PRN PRN Hypoglycemia Protocol Insulin Aspart 3 - 6 units 04/01/24 12:00 04/04/24 08:37 Insulin Aspart (*Bkc) 100 Units/Ml SUB-Q Not Given [facility] Protocol Ipratropium [place] 0.5 mg 03/28/24 14:00 04/04/24 08:20 Ipratropium Br 0.02% Inh Soln 0.5 Mg/2.5 Ml Vial INHALATION 0.5 mg Q6HRT LAURA Administration Levalbuterol HCl 1.25 mg 03/28/24 14:00 04/04/24 08:20 Levalbuterol Neb 1.25 Mg/3 Ml INHALATION 1.25 mg Q6HRT LAURA Administration Levothyroxine Sodium 50 mcg 03/29/24 06:30 04/04/24 05:55 Levothyroxine Sodium 50 Mcg Tablet PO 50 mcg DAILY@0630 LAURA Administration Pantoprazole Sodium 40 mg 04/04/24 09:00 04/04/24 08:39 Pantoprazole 40 Mg Tablet PO 40 mg QAM LAURA Administration Polyethylene Glycol 17 gm 03/30/24 09:00 04/04/24 08:40 Polyethylene Glycol 3350 17 Gm Powd.Pack PO 17 gm QAM LAURA Administration Senna/Docusate Sodium 1 tab 03/30/24 09:00 04/04/24 08:39 Senna/Docusate Sodium Tablet PO 1 tab Q12HR LAURA Administration Radiology Results: ITS Impressions Abdomen X-Ray 03/28/24 10:10 IMPRESSION: 1. Nasogastric tube tip in the stomach. Head CT 03/28/24 10:49 Impression: No intracranial hemorrhage, mass, or acute infarct. Atrophy and chronic white matter changes, as above. Renal Ultrasound 03/28/24 15:15 IMPRESSION: 1. Mild right hydronephrosis. The previously seen stones in the right renal collecting system are no longer visualized patient concern for progression into the ureter with secondary obstruction. The stones were visible on the prior CT but not on intervening upper GI study performed on 03/04/2024 suggesting may be difficult to identify by a radiolucent would consider renal stone CT for further evaluation. Abdomen/Pelvis CT 03/29/24 09:39 IMPRESSION: 1. Mild bilateral hydronephrosis without evident urolithiasis. This is likely related to the wall thickening in the decompressed bladder itself likely related to cystitis. 2. Consolidation at the bilateral lower lungs suspicious for combination of atelectasis and pneumonia. 3. Persistent 7.5 cm ball of stool at the rectum with mild wall thickening and minimal perirectal stranding which can be seen with constipation/fecal impaction and secondary stercoral colitis. Chest X-Ray 04/02/24 06:33 Impression: Worsening hazy airspace disease bilaterally, especially right upper lobe. Correlate for worsening pulmonary edema versus possibly pneumonia. Minimal left pleural effusion. Labs Labs: Laboratory Results - last 24 hr 04/03/24 04/03/24 04/03/24 09:47 10:49 12:32 WBC RBC Hgb Hct MCV MCH MCHC RDW Plt Count MPV Band Neutrophils % Not Reportable Platelet Estimate Adequate Hypochromasia 1+ Ovalocytes 1+ Schistocytes None seen Sodium 141 Potassium 4.0 Chloride 101 Carbon Dioxide 34 H Anion Gap 6 BUN 43 H Creatinine 1.35 H Estim Creat Clear Calc 55 Estimated GFR 52 L Glucose 123 H POC Capillary Glucose 125 H Calcium 10.0 Magnesium Total Bilirubin 0.6 AST 16 L ALT 13 Alkaline Phosphatase 69 Total Protein 7.0 Albumin 3.0 L 04/03/24 04/03/24 04/04/24 17:02 20:06 04:49 WBC 8.7 RBC 3.24 L Hgb 9.0 L Hct 30.3 L MCV 93.5 MCH 27.8 MCHC 29.7 L RDW 16.0 H Plt Count 183 MPV 10.2 Band Neutrophils % Platelet Estimate Hypochromasia Ovalocytes Schistocytes Sodium 139 Potassium 4.0 Chloride 97 L Carbon Dioxide 35 H Anion Gap 7 BUN 47 H Creatinine 1.33 H Estim Creat Clear Calc 56 Estimated GFR 52 L Glucose 99 POC Capillary Glucose 120 H 112 H Calcium 9.7 Magnesium 2.0 Total Bilirubin 0.7 AST 16 L ALT 11 Alkaline Phosphatase 65 Total Protein 7.0 Albumin 3.0 L 04/04/24 08:08 WBC RBC Hgb Hct MCV MCH MCHC RDW Plt Count MPV Band Neutrophils % Platelet Estimate Hypochromasia Ovalocytes Schistocytes Sodium Potassium Chloride Carbon Dioxide Anion Gap BUN Creatinine Estim Creat Clear Calc Estimated GFR Glucose POC Capillary Glucose 107 H Calcium Magnesium Total Bilirubin AST ALT Alkaline Phosphatase Total Protein Albumin Quality VTE Prophylaxis VTE prophylaxis: mechanical ordered and pharmacologic ordered
[2024-04-04 11:34] LABS: Glucose Point of Care 126 mg/dl (65-105)
[2024-04-04 17:07] LABS: Glucose Point of Care 137 mg/dl (65-105)
[2024-04-04 20:10] LABS: Glucose Point of Care 129 mg/dl (65-105)
[2024-04-05] VITALS (13 sets, daily range): BP systolic 107–145; BP diastolic 93–98; PULSE 76–95; RESP 19–32; TEMP 36.6–36.8; O2SAT 92–97
[2024-04-05] MEDS: LEVALBUTEROL NEB 1.25 MG/3 ML INHALATION ×3 (01:55→13:52)
[2024-04-05] MEDS: IPRATROPIUM BR 0.02% INH SOLN 0.5 MG/2.5 ML VIAL INHALATION ×3 (01:55→13:52)
[2024-04-05 05:02] LABS: Hematocrit 29.5 % (42.0-52.0); Hemoglobin 9.1 g/dL (14.0-18.0); Mean Corpuscular HGB Conc 30.8 g/dl (32-36); Mean Corpuscular Hemoglobin 28.3 pg (26-34); Mean Corpuscular Volume 91.9 fl (80-100); Mean Platelet Volume 9.9 fl (7.4-10.4); Platelet Count Result 199 k/mm3 (150-375); Red Blood Count 3.21 M/mm3 (4.6-6.20); White Blood Count 8.2 K/mm3 (4.5-10.0)
[2024-04-05 05:18] LABS: Alanine Aminotransferase 11 U/L (6-50); Albumin Level 3.1 g/dL (3.5-5.1); Alkaline Phosphatase 64 U/L (38-126); Anion Gap 4 mmol/L (4-12); Aspartate Amino Transferase 18 U/L (17-59); Bilirubin,Total 0.7 mg/dL (0.2-1.3); Blood Urea Nitrogen 43 mg/dL (9-20); Calcium 9.8 mg/dL (8.4-10.2); Carbon Dioxide 39 mmol/L (22-30); Chloride 95 mmol/L (98-107); Estimated CRCL calculation 53 ml/min; Estimated Glomerular Filt Rate 49; Glucose 109 mg/dL (65-110); Magnesium 1.8 mg/dL (1.6-2.3); Potassium 3.8 mmol/L (3.4-5.0); Sodium 138 mmol/L (137-145)
[2024-04-05] MEDS: LEVOTHYROXINE SODIUM 50 MCG TABLET PO (05:56)
[2024-04-05 07:59] LABS: Glucose Point of Care 110 mg/dl (65-105)
[2024-04-05] MEDS: APIXABAN 5 MG TABLET PO (08:28)
[2024-04-05] MEDS: carvediloL 12.5 MG TABLET PO (08:28)
[2024-04-05] MEDS: PANTOPRAZOLE 40 MG TABLET PO (08:29)
[2024-04-05] MEDS: FUROSEMIDE 40 MG TABLET PO (08:29)
[2024-04-05] MEDS: SENNA/DOCUSATE SODIUM TABLET 1 TAB PO (08:29)
[2024-04-05] MEDS: polyethylene glycoL 3350 17 GM POWD.PACK PO (08:29)
[2024-04-05] MEDS: EMPAGLIFLOZIN 5 MG TABLET PO (08:29)
--- NOTE | 2024-04-05 10:49 | P.DS_ITS ---
DS: Admitting Diagnosis Discharge Date 04/05/2024 Admitting Diagnosis Acute respiratory failure DS: Discharge Diagnosis Discharge Diagnosis (1) Acute respiratory failure with hypercapnia: Code(s): J96.02 - Acute respiratory failure with hypercapnia Status: Acute Assessment and Plan: 03/28:Patient presented with respiratory distress, shortness of breath, altered mental status -initial ABG showed pH of 7.19 and pCO2 of 117, patient was obtunded, BiPAP was not an option due to altered mental status so that patient was intubated in the ER on 03/28 Respiratory failure secondary to combination of COPD exacerbation, hypercapnic respiratory failure, pneumonia, obesity hypoventilation syndrome, obstructive sleep apnea, congestive heart failure, pulmonary hypertension -03/31: extubated successfully Continue bronchodilators - RSV, COVID and influenza are negative Post extubation patient was ordered BiPAP p.r.n. at night but patient noncompliant and does not wear BiPAP. Despite several discussions patient continues to refuse. Incentive spirometer -PT and OT evaluation done IV Lasix (2) Shock: Code(s): R57.9 - Shock, unspecified Status: Acute Assessment and Plan: RESOLVED Patient presented with hypotension, anemia related to sepsis/infection/hypovolemia, UTI Patient was treated with IV fluids and antibiotic and vasopressors. Now off of both Patient received a course of ceftriaxone, and doxycycline -03/28: blood cultures are negative -03/28: urine cultures with no growth -03/28: Sputum culture -growth of normal oropharyngeal terence (3) Acute worsening of stage 3 chronic kidney disease: Code(s): N18.30 - Chronic kidney disease, stage 3 unspecified Status: Acute Assessment and Plan: Patient has history of chronic kidney disease stage 3 (baseline creatinine seems to be 1.4-1.8). Likely related to hypotension from shock, infection, UTI, hypovolemia -patient presented with a creatinine of 2.67 this admission Which improved with fluid resuscitation and creatinine is now close to baseline. Patient has been started on diuretics now Renal ultrasound showed mild hydronephrosis Urology was consulted. Repeat CT scan was done which did not show any stone or obstruction. No further recommendations from Urology. Urology recommends leaving Mccarty in at this time and follow up as an outpatient 03/29: CT abdomen and pelvis IMPRESSION: 1. Mild bilateral hydronephrosis without evident urolithiasis. This is likely related to the wall thickening in the decompressed bladder itself likely related to cystitis. 2. Consolidation at the bilateral lower lungs suspicious for combination of atelectasis and pneumonia. 3. Persistent 7.5 cm ball of stool at the rectum with mild wall thickening and minimal perirectal stranding which can be seen with constipation/fecal impaction and secondary stercoral colitis. (4) Atrial fibrillation: Qualifiers: Atrial fibrillation type: unspecified Qualified Code(s): I48.91 - Unspecified atrial fibrillation Code(s): I48.91 - Unspecified atrial fibrillation Status: Chronic Assessment and Plan: Patient has a history of atrial fibrillation on Eliquis and the nursing Currently rate controlled. Continue Eliquis and Coreg (5) Chronic obstructive pulmonary disease: Code(s): J44.9 - Chronic obstructive pulmonary disease, unspecified Status: Acute Assessment and Plan: History of COPD, on 4 L home oxygen Continue bronchodilators Off steroid and antibiotics Patient needs BiPAP for multifactorial respiratory failure but he continues to refuse. (6) Diabetes mellitus: Code(s): E11.9 - Type 2 diabetes mellitus without complications Status: Chronic Assessment and Plan: Currently on insulin (7) Heart failure with preserved ejection fraction: Code(s): I50.30 - Unspecified diastolic (congestive) heart failure Status: Acute Assessment and Plan: ProBNP was 9230 Cardiology following 03/29/2024: Echocardiogram Summary 1. Complete two-dimensional, color flow and Doppler transthoracic echocardiogram is performed. 2. Left ventricular chamber dimension is moderately enlarged. 3. Left ventricular systolic function is moderately globally reduced, estimated at 40-45%. 4. The left ventricular diastolic function is normal. 5. E/e' 9 is minimally elevated. 6. Left atrial chamber dimension is moderately enlarged. 7. Right atrial chamber dimension is moderately enlarged. 8. There is mild aortic valve sclerosis. 9. There is mild mitral valve regurgitation. 10. There is mild to moderate tricuspid valve regurgitation. 11. Severe pulmonary hypertension, estimated pulmonary arterial systolic pressure is 64 mmHg. Continue laced (8) Hypothyroidism: Code(s): E03.9 - Hypothyroidism, unspecified Status: Acute Assessment and Plan: Continue levothyroxine (9) Urinary tract infection: Code(s): N39.0 - Urinary tract infection, site not specified Status: Acute Assessment and Plan: UA was reflective of UTI, Completed course of antibiotic (10) Fecal impaction: Code(s): K56.41 - Fecal impaction Status: Acute Assessment and Plan: Patient has chronic constipation and presented with Fecal impaction with stool ball at the rectum as seen on the CT scan of the abdomen and pelvis as above -status post soapsuds enema on 03/30 -tap water enema 04/03 with 1 hard BM Continue laxative Plan DVT prophylaxis: Eliquis Stress ulcer prophylaxis: Protonix Nutrition: Patient tolerated diabetic diet PT and OT evaluated and pt was deemed to be at baseline level Spoke to patient's daughter again and she states that patient would not want to go back on the ventilator. She is going to discuss with shelter administration and changes code status. DS: Summary Hospital Course Hospital Course: 74 year old male with past medical history of chronic hypercapnic and hypoxic respiratory failure on 4 L off oxygen at the shelter, obesity hypoventilation syndrome, history of right foot osteomyelitis, chronic kidney disease stage 3, obstructive sleep apnea on BiPAP, GERD, hypothyroidism, hyperlipidemia, essential hypertension a history of DVT, history of CVA, heart failure with preserved ejection fraction, history of atrial fibrillation on Eliquis presented to ED on 01/25/2025 from shelter with complains of shortness of breath dyspnea via EMS. On arrival to the ED patient patient was obtunded, initial ABG showed a pH of 7.19, pCO2 of 117, PO2 of 93, HC03 43, O2 sats 94% on 4 L nasal cannula. Patient was obtunded with altered mental status and would have not tolerated BiPAP so ER physician intubated the patient. Patient was also hyperdense Patient was given 2 L IV fluids, PICC line was placed in the left upper arm and started on Levophed. Patient was transferred to the ICU for further management In the ER hemoglobin S WBC count was 9.6, hemoglobin 10.4, platelets 134. Sodium 134, potassium 5.4, CO2>40, BUN 67, creatinine of 2.67, glucose 152. Troponin was 0.042, proBNP was 9230. UA was positive for UTI for. Influenza, RSV and SARS-CoV-2 PCR was negative Chest x-ray on admission showed airspace opacities in mid and lower lung zones, likely atelectasis, cardiomegaly CT brain on admission: No intracranial hemorrhage, mass, or acute infarct. [facility] and chronic white matter changes Patient was treated with IV antibiotics Rocephin and doxycycline. Vancomycin was initially started but later discontinued. Patient clinically improved and came off of vasopressors and then was extubated on 03/31. He was evaluated by speech and modified diet was ordered. He is not tolerating p.o. diet. His mental status has improved and he is now AO x3. He has slurred speech at baseline. His cultures have remained negative. He has refused to wear BiPAP most nights despite multiple multiple discussions with him. I have personally emphasized to patient that he needs to wear BiPAP to prevent worsening hypercarbic respiratory failure and he may end up going back on the ventilator or this could be life-threatening and can due to his . Patient states that he does not tolerate BiPAP and would not wear it for extended period of time. I have discussed this with patient's daughter also understands the patient does not like BiPAP and states that she cannot force him to wear it. He had elevation in his creatinine which has improved and patient has been restarted on diuretics per He is currently on 1-2 L nasal cannula He was evaluated by Physical therapy and was deemed to be at his baseline. He is mostly bedbound with neida lift at baseline Diabetes back on subcutaneous insulin He has chronic constipation is found to be having fecal impaction. He received 2 different and months the. He is now having bowel movements. He is on laxative He had urinary retention and a Mccarty catheter was placed after consultation with Urology and Urology recommends leaving Mccarty catheter in until follow-up as an outpatient. Patient will be discharged today back to [facility]. I have spoken to both patient and his daughter at bedside and discussed discharge instruction. He will not been any antibiotics since he has completed his course Time Spent with Patient Time attestation: Total time spent providing and/or coordinating discharge services: Exam Narrative: General: Pleasant gentleman, in no acute distress slurred speech which is baseline HEENT:? Pupils are pinpoint but equal and reactive, sclerae ischemia, Neck:? Supple, thick neck Respiratory:? Coarse breath sounds bilaterally, decreased at bases, no wheezing, adequate air entry,t no respiratory distress Cardiac:? Irregularly irregular, tachycardia Abdomen:? soft, nontender, nondistended, morbidly obese, hypoactive bowel sound Extremities:? Trace bilateral lower extremity edema, pitting edema on dorsum of the feet bilaterally. Palpable pedal pulses Neuro:? Patient is awake, alert, answers questions and follows simple commands AO x 3, facial droop Skin:? Left big toe nail seems to have fallen off Psych:? Normal mentation and affect DS: Data Data Completed and Pending Completed studies during hospitalization: See summary Labs on day of discharge: Labs from last 24 hours 04/05/24 04/05/24 04/04/24 07:55 04:43 20:00 WBC 8.2 RBC 3.21 L Hgb 9.1 L Hct 29.5 L MCV 91.9 MCH 28.3 MCHC 30.8 L RDW 16.0 H Plt Count 199 MPV 9.9 Sodium 138 Potassium 3.8 Chloride 95 L Carbon Dioxide 39 H Anion Gap 4 BUN 43 H Creatinine 1.42 H Estim Creat Clear Calc 53 Estimated GFR 49 L Glucose 109 POC Capillary Glucose 110 H 129 H Calcium 9.8 Magnesium 1.8 Total Bilirubin 0.7 AST 18 ALT 11 Alkaline Phosphatase 64 Total Protein 7.0 Albumin 3.1 L 04/04/24 04/04/24 17:04 11:26 WBC RBC Hgb Hct MCV MCH MCHC RDW Plt Count MPV Sodium Potassium Chloride Carbon Dioxide Anion Gap BUN Creatinine Estim Creat Clear Calc Estimated GFR Glucose POC Capillary Glucose 137 H 126 H Calcium Magnesium Total Bilirubin AST ALT Alkaline Phosphatase Total Protein Albumin Discharge Plan Discharge Consulting providers: Blanche Andrade; Isabela Jean Baptiste; Elver Platt Discharging Clinician: Dom Ng Patient Disposition: [facility] Activity: as tolerated and other - see discharge instructions Diet: diabetic Patient Instructions: Antibiotic Form, Apixaban (By mouth), Heart Failure (GEN) Patient Language: Turkmen Stand Alone Forms: General Discharge Information, Care Home Discharge Discharge Medications: Continued carvedilol 12.5 mg tablet 12.5 mg PO BID cholecalciferol (vitamin D3) 1,250 mcg (50,000 unit) capsule 50,000 unit PO WEEKLY Rx Instructions: every Monday metformin 500 mg tablet extended release 24 hr 500 mg PO DAILY insulin aspart U-100 100 unit/mL (3 mL) insulin pen 5 unit SUBCUT ACHS budesonide-formoterol 160-4.5 mcg/actuation HFA aerosol inhaler 2 puff INHALATION BID Jardiance 10 mg Tablet 5 mg PO DAILY Qty: 30 0RF furosemide 40 mg Tablet 40 mg PO DAILY albuterol sulfate 2.5 mg /3 mL (0.083 %) solution for nebulization 2.5 mg inhalation TID magnesium hydroxide [Milk of Magnesia] 400 mg/5 mL Suspension 30 ml PO PRN PRN (Reason: Constipation) Rx Instructions: give 30ml by mouth for constipation at hs if no bm in 3 days levothyroxine 50 mcg tablet 50 mcg PO DAILY bisacodyl 10 mg Suppository 10 mg RECTAL DAILY PRN (Reason: Constipation) Rx Instructions: if no results with MOM magnesium citrate [Citroma] Solution 296 ml PO PRN PRN (Reason: Constipation) Rx Instructions: if no results from enema Eliquis 5 mg Tablet 5 mg PO DAILY pantoprazole [Protonix] 40 mg tablet,delayed release (DR/EC) 40 mg PO DAILY multivitamin Tablet 1 tablet PO DAILY ondansetron 4 mg tablet,disintegrating 4 mg PO Q8H PRN (Reason: nausea and vomiting) Saccharomyces boulardii [Daily Probiotic (S. boulardii)] 250 mg capsule 250 mg PO BID cholecalciferol (vitamin D3) 125 mcg (5,000 unit) tablet 250 mcg PO WEEKLY Discontinued hydrocortisone 10 mg tablet 10 mg PO HS meropenem 1 gram recon soln 1 g IV Q12H Date of admission: 03/28/24 12:37 Primary Care Provider: [facility] Admitting Provider: Jeannine Pemberton Attending physician on admission: Jeannine Pemberton Condition: Critical Quality VTE Prophylaxis VTE prophylaxis: pharmacologic ordered Hospitalist MIPS Heart Failure (Exclusion) Patient has history of Heart Transplant or Left Ventricular Assistive Device?: No IF YES, STOP HERE Heart Failure (Qualifier) Patient has current or prior documentation of LVEF less than or equal to 40%, or mod/servere depressed LVSF?: No IF NO, STOP HERE If Yes, Heart Failure (Qualifier) Patient was prescribed or already taking an Angiotensin-Converting Enzyme (RED) Inhibitor, or Antiotensin Receptor Luci (ARB): No Patient was prescribed or already taking bisoprolol, carvedilol, or sustained release metoprolol succinate: Yes If Medications not prescribed/taking Reason patient not prescribed/taking RED or ARB: Medical reasons: allergy, intolerance, contraindication or other
[2024-04-05 11:51] LABS: Glucose Point of Care 123 mg/dl (65-105)
== END 2024-04-05 14:36 | DRG 871 ==
LOC: ANHED 09:14 → ANHICU 13:19
PROVIDERS: Internal Medicine; Admitting Provider Hospitalist; Emergency Provider Emergency Medicine; Visit Provider Internal Medicine
DX: A41.9 Sepsis, unspecified organism (principal); J18.9 Pneumonia, unspecified organism; J96.21 Acute and chronic respiratory failure with hypoxia; J96.22 Acute and chronic respiratory failure with hypercapnia; R65.21 Severe sepsis with septic shock; N39.0 Urinary tract infection, site not specified; I50.20 Unspecified systolic (congestive) heart failure; I13.0 Hypertensive heart and chronic kidney disease with heart failure and stage 1 through stage 4 chronic kidney disease, or unspecified chronic kidney disease; Z68.41 Body mass index [BMI] 40.0-44.9, adult; J44.1 Chronic obstructive pulmonary disease with (acute) exacerbation; N13.30 Unspecified hydronephrosis; I48.20 Chronic atrial fibrillation, unspecified; J44.0 Chronic obstructive pulmonary disease with (acute) lower respiratory infection; E66.2 Morbid (severe) obesity with alveolar hypoventilation; E11.9 Type 2 diabetes mellitus without complications; E87.5 Hyperkalemia; E11.22 Type 2 diabetes mellitus with diabetic chronic kidney disease; N18.30 Chronic kidney disease, stage 3 unspecified; K21.9 Gastro-esophageal reflux disease without esophagitis; R33.8 Other retention of urine; K56.41 Fecal impaction; E03.9 Hypothyroidism, unspecified; Z99.81 Dependence on supplemental oxygen; Z86.718 Personal history of other venous thrombosis and embolism; Z86.73 Personal history of transient ischemic attack (TIA), and cerebral infarction without residual deficits; Z79.01 Long term (current) use of anticoagulants; Z20.822 Contact with and (suspected) exposure to COVID-19
CPT/HCPCS: 31500; 36415; 36569; 36600; 70450; 71045; 74176; 76775; 80048; 80053; 80202; 81001; 82375; 82436; 82550; 82570; 82805; 82948; 83050; 83605; 83735; 83880; 84100; 84133; 84300; 84443; 84478; 84484; 85018; 85025; 85027; 85055; 85610; 85730; 85999; 87040; 87070; 87086; 87205; 87637; 87641; 92610; 93005; 93306; 94002; 94003; 94640; 96361; 96365; 96375; 99291; A9270; C1751; J0171; J0360; J0696; J1815; J1940; J2250; J2470; J2765; J3010; J3370; J7030; J7120; P9047